=== PATIENT | female | born 1960 | race Caucasian/White ===

== ENCOUNTER → 2019-07-10 13:12 | Outpatient (BNVA) | payer OTHER, SELFPAY | PROVIDERS: PCP Internal Medicine; Referring Provider Internal Medicine; Visit Provider Nurse Practitioner Adult Health | DX: G43.709 Chronic migraine without aura, not intractable, without status migrainosus (principal) | CPT/HCPCS: 99204 ==

== ENCOUNTER 2019-08-30 12:51 | Outpatient (REF) | payer OTHER, SELFPAY ==
[2019-08-30 14:07] LABS: ALT 26 U/L (14-59); AST 25 U/L (15-37); Albumin 3.9 g/dL (3.4-5.0); Alkaline Phosphatase 46 U/L (46-116); Anion Gap 9.5 mmol/L (3-11); BUN 9 mg/dL (7-18); Bilirubin, Total 0.5 mg/dL (0.2-1.0); CO2 28.5 mmol/L (21.0-32.0); CREATININE 1.02 mg/dL (0.55-1.02); Calcium 9.6 mg/dL (8.5-10.1); Chloride 103 mmol/L (98-107); Estimated GFR 55.47 (mL/min/1.73m2); Glucose 130 mg/dL (74-106); Potassium 4.3 mmol/L (3.5-5.1); Sodium 141 mmol/L (136-145); TSH (W/Ref FT4) 1.72 uIU/mL (0.36-3.74); Total Protein 7.2 g/dL (6.4-8.2)
[2019-08-30 22:15] LABS: Vitamin D 25 Total 50.4 ng/ml (30-100)
== END 2019-08-30 13:11 ==
LOC: NCHCN 12:51
PROVIDERS: PCP Internal Medicine; Visit Provider Nurse Practitioner
DX: F41.8 Other specified anxiety disorders (principal); R63.4 Abnormal weight loss; Z79.899 Other long term (current) drug therapy; Z13.21 Encounter for screening for nutritional disorder
CPT/HCPCS: 80053; 82306; 84443

== ENCOUNTER → 2019-09-17 12:56 | Outpatient (BNVA) | payer OTHER, SELFPAY | PROVIDERS: PCP Internal Medicine; Referring Provider Internal Medicine; Visit Provider Nurse Practitioner Adult Health | DX: G43.709 Chronic migraine without aura, not intractable, without status migrainosus (principal); F50.9 Eating disorder, unspecified | CPT/HCPCS: 99213 ==

== ENCOUNTER → 2019-10-15 13:19 | Outpatient (BNVA) | payer OTHER, SELFPAY | PROVIDERS: PCP Internal Medicine; Referring Provider Internal Medicine; Visit Provider Nurse Practitioner Adult Health | DX: F50.9 Eating disorder, unspecified (principal); G43.709 Chronic migraine without aura, not intractable, without status migrainosus | CPT/HCPCS: 99213 ==

== ENCOUNTER → 2019-12-18 09:24 | Outpatient (BNVA) | payer OTHER, SELFPAY | PROVIDERS: PCP Internal Medicine; Referring Provider Internal Medicine; Visit Provider Nurse Practitioner Adult Health | DX: G43.709 Chronic migraine without aura, not intractable, without status migrainosus (principal) | CPT/HCPCS: 99213; 99441 ==

== ENCOUNTER → 2020-03-27 08:54 | Outpatient (BNVA) | payer OTHER, SELFPAY | PROVIDERS: PCP Internal Medicine; Referring Provider Internal Medicine; Visit Provider Nurse Practitioner Adult Health | DX: G43.709 Chronic migraine without aura, not intractable, without status migrainosus (principal) | CPT/HCPCS: 99213 ==

== ENCOUNTER → 2020-07-02 13:05 | Outpatient (BNVA) | payer OTHER, SELFPAY | PROVIDERS: PCP Internal Medicine; Referring Provider Internal Medicine; Visit Provider Nurse Practitioner Adult Health | DX: G43.709 Chronic migraine without aura, not intractable, without status migrainosus (principal) | CPT/HCPCS: 99213; 99441 ==

== ENCOUNTER → 2020-10-06 08:40 | Outpatient (BNVA) | payer OTHER, SELFPAY | PROVIDERS: PCP Internal Medicine; Referring Provider Internal Medicine; Visit Provider Nurse Practitioner Adult Health | DX: G43.709 Chronic migraine without aura, not intractable, without status migrainosus (principal) | CPT/HCPCS: 99212; 99442 ==

== ENCOUNTER 2020-12-18 10:51 | Outpatient (CLI) | payer OTHER, SELFPAY ==
[2020-12-18 11:42] LABS: CREATININE 1.1 mg/dL (0.55-1.02)
[2020-12-18] MEDS: Omnipaque 350 MG/ML 100 ML BTL IJ (12:27)
[2020-12-18] MEDS: Normal Saline - Diluent 50 ML VIAL IV (12:31)
--- NOTE | 2020-12-18 12:32 | DI.CT_ITS ---
Exam(s) CT PELVIC W EXAM: CT PELVIC W CLINICAL HISTORY: PELVIC JOINT PAIN, M25.559, BILAT ISCHIAL TUBEROSITY. TECHNIQUE: Imaging Protocol: Axial computed tomography images with coronal and sagittal reformatted images were created and reviewed CONTRAST MATERIAL: Intravenous: Omnipaque 100cc Oral: None COMPARISON: No exams were available for comparison FINDINGS: PELVIS: This CT scan was limited to the pelvis, as per request. OSSEOUS:No pelvic or hip fractures evident. No significant osseous lesions.Sacroiliac joints appear unremarkable. Ischial tuberosities appear unremarkable. ANTERIOR ABDOMINAL WALL/GI:No evidence of anterior abdominal hernia at and below the level of the umb ilicus. Also no evidence of inguinal hernia. Difficult to locate the appendix on this study. Howev er, no evidence of obvious appendicitis.No evidence of sigmoid diverticulitis. LYMPH NODES: There is no intrapelvic nor inguinal adenopathy. REPRODUCTIVE: Uterus size is age-appropriate. There are multiple dilated veins on both sides of uter us. These drain into prominent gonadal veins. Probably an element of pelvic congestion. No free fl uid in the cul-de-sac. URINARY BLADDER: No calculi nor obvious masses evident VASCULAR: there is no adenopathy around the aortic bifurcation nor along the iliac chains and there i s no inguinal adenopathy. an there is no significant atherosclerotic disease at the level of the aor tic bifurcation and iliac arteries. common femoral arteries are patent as are the visualized proxima l sfa arteries. IMPRESSION: 1. This pelvic CT scan somewhat difficult to assess due to the lack of oral contrast. There are dens ities anterior to the sacrum which are probably unopacified bowel loops. 2. There are multiple dilated veins on both sides the uterus which drain into prominent gonadal veins , consistent with element of pelvic congestion syndrome. 3. Subcutaneous streaking over medial aspect lower buttocks. No prominent cubitus ulcer. No evidenc e of osteomyelitis of the ischial tuberosities. RADIATION DOSE DELIVERED: 269.6mGy.cm Total DLP DATA REPOSITORY: All CT scans at this facility are submitted to the National Radiology Data Registry (NRDR) Dose Index Registry (DIR) with the [employer] (ACR). RADIATION OPTIMIZATION: All CT scans at this facility use at least one of these dose optimization te chniques: automated exposure control; mA and/or kV adjustment per patient size (includes targeted exa ms where dose is matched to clinical indication); or iterative reconstruction.
== END 2020-12-18 11:11 ==
PROVIDERS: PCP Internal Medicine; Visit Provider Physician Assistant Medical
DX: Z01.812 Encounter for preprocedural laboratory examination (principal); M25.559 Pain in unspecified hip; R10.2 Pelvic and perineal pain; N94.89 Other specified conditions associated with female genital organs and menstrual cycle
CPT/HCPCS: 72193; 82565; J3490

== ENCOUNTER → 2021-01-21 07:21 | Outpatient (BNVA) | payer OTHER, SELFPAY | PROVIDERS: PCP Internal Medicine; Referring Provider Internal Medicine; Visit Provider Nurse Practitioner Adult Health | DX: G43.709 Chronic migraine without aura, not intractable, without status migrainosus (principal) | CPT/HCPCS: 99213 ==

== ENCOUNTER → 2021-03-04 12:29 | Outpatient (BNVA) | payer OTHER, SELFPAY | PROVIDERS: PCP Internal Medicine; Referring Provider Internal Medicine; Visit Provider Nurse Practitioner Adult Health | DX: G43.709 Chronic migraine without aura, not intractable, without status migrainosus (principal); F50.9 Eating disorder, unspecified | CPT/HCPCS: 99213; J1885; J2550; 96372 ==

== ENCOUNTER → 2021-03-18 13:10 | Outpatient (BNVA) | payer OTHER, SELFPAY | PROVIDERS: PCP Internal Medicine; Referring Provider Internal Medicine; Visit Provider Nurse Practitioner Adult Health | DX: G43.709 Chronic migraine without aura, not intractable, without status migrainosus (principal) | CPT/HCPCS: 99212; 99213 ==

== ENCOUNTER → 2021-04-16 09:23 | Outpatient (BNVA) | payer OTHER, SELFPAY | PROVIDERS: PCP Nurse Practitioner; Visit Provider Nurse Practitioner Adult Health | DX: G43.709 Chronic migraine without aura, not intractable, without status migrainosus (principal); M54.2 Cervicalgia | CPT/HCPCS: 99213; 99215 ==

== ENCOUNTER → 2021-06-18 08:33 | Outpatient (BNVA) | payer MEDICARE, OTHER, SELFPAY | PROVIDERS: PCP Nurse Practitioner; Referring Provider Nurse Practitioner; Visit Provider Psychiatry & Neurology Neurology | DX: G43.709 Chronic migraine without aura, not intractable, without status migrainosus (principal) | CPT/HCPCS: 99214 ==

== ENCOUNTER 2021-07-28 00:05 | Outpatient (CLI) | payer MEDICARE, SELFPAY ==
--- OUTSIDE RECORDS SUMMARY | 2021-07-28 00:07 | XMS_ITS ---
:1960 Author Care Team Providers Name Role Phone SHARATH MORRIS Primary Care Provider [phone] Allergies Code Code System Name Reaction Severity Status Onset 5814507 RxNorm Latex ? ? Active ? Sulfa ? ? Active ? (Sulfonamid e Antibiotics ) Medications Name Status Start Date Stop Date ? ? acetaminophen 325 mg tablet Completed 09/21/201209/2014 1 Tablet: every six hours as needed for fever Ambien 10 mg tablet Completed 08/02/2005 10/22/2005 1 (one) Tablet: At Bedtime PRN Ativan 0.5 mg tablet Completed 08/23/2013 12/05/2013 1 (one) Tablet: two times daily Ativan 1 mg tablet Completed 05/23/2008 10/08/2009 1 Tablet: QHS / HS B Complex-Vitamin B12 Active 03/15/2018 Not availa ble take 200-400mg daily Bromatapp 12 mg-75 mg tablet,extended release Completed 08/30/2016 2 (two) Tablet: once daily buspirone 15 mg tablet Active ? Not avail able Take 1 tablet twice a day by oral route. cephalexin 500 mg capsule Completed 08/20/20112011 1 Capsule: three times daily ciprofloxacin 500 mg tablet Completed 08/23/201308/22 1 Tablet: twice daily citalopram 10 mg tablet Completed 11/29/2011 11/29/19 12 1 (one) Tablet: daily cyclobenzaprine 5 mg tablet Completed 10/30/201502/2016 1 (one) Tablet: twice a day as needed Cytomel 25 mcg tablet Completed 08/23/2013 09/08/2013 1 Tablet: every morning dicyclomine 20 mg tablet Completed 03/30/2013 013 1 Tablet: Four times daily as needed docusate sodium 100 mg capsule Active ? N ot available Take 1 capsule every day by oral route. Effexor XR 75 mg capsule,extended release Completed 200907/14/2010 1 (one) Capsule ER 24HR: daily Elocon 0.1 % topical cream Unknown 11/14/2008 Not a vailable 1 (one) Application(s): twice daily epinephrine 0.3 mg/0.3 mL injection, auto-injector Active ? Not available Take 0.3 mL as needed by injection route. gentamicin 0.1 % topical ointment Completed 08/19/2011 08/19/2011 1 (one) FTU: Three times a day hydrocodone 5 mg-acetaminophen 325 mg tablet Completed 08/01/2014 1-2 Tablet: at bedtime, as needed hydrocortisone 2.5 % topical cream Completed 09/21/2011 12/05/2013 1 Application(s): three times daily hydroxyzine HCl 25 mg tablet Completed 11/20/201405/2016 1 (one) Tablet: four times daily, as needed hydroxyzine HCl 50 mg tablet Completed 11/20/201405/2016 4 (four)Tablet Tablet: nightly ibuprofen 600 mg tablet Completed 11/02/2007 02/16/20 14 1 (one) Tablet: three times daily, as needed ibuprofen 800 mg tablet Active ? Not avai lable Take 1 tablet 3 times a day by oral route as needed. ketoconazole 2 % topical cream Completed 09/20/2011 0 09/20/2011 1 (one) application(s): two times daily L-Methylfolate 15 mg tablet Active ? Not available Take 1 mg every day by oral route. lamotrigine 100 mg tablet Active ? Not av ailable Take 1 tablet every day by oral route. levothyroxine 25 mcg tablet Completed 12/31/2013 05/02/2014 1 (one) Tablet: daily Lexapro 10 mg tablet Unknown 11/14/2008 Not availab le 1 (one) Tablet: Daily loratadine 10 mg tablet Active ? Not avai lable Take 1 tablet every day by oral route. Lotrimin AF (clotrimazole) 1 % topical cream Completed 09/17/2011 1 (one) Application(s): Twice daily Lotrisone 1 %-0.05 % topical cream Completed 02/20/2009 10/08/2009 1 (one) FTU: two times daily Macrobid 100 mg capsule Completed 03/01/2008 03/04/20 08 1 (one) Capsule: Twice daily magnesium 250 mg tablet Active 03/15/2018 Not avai lable Take 1 tablet every day by oral route with meals. melatonin 3 mg tablet Completed 08/23/2013 09/22/2013 2 (two) Tablet: nightly metronidazole 500 mg tablet Completed 12/29/201212/20 1 Tablet: three times daily mupirocin 2 % topical ointment Completed 07/17/2012 1 09/16/2011 1 Ointment: two times daily NAC 600 mg capsule Active ? Not available Take 2 capsules every day by oral route in the morning. naproxen 250 mg tablet Active 03/15/2018 Not avail able Take 2 tablets twice a day by oral route as needed. Nexium 40 mg capsule,delayed release Completed 03/01/2008 03/01/2008 1 (one) Capsule DR: QD NuvaRing 0.12 mg-0.015 mg/24 hr vaginal Completed 07/10/20 10 07/10/2010 1 Ring: [id number] omeprazole 20 mg capsule,delayed release Completed 014 05/16/2014 1 (one) Capsule DR Capsule DR: daily ondansetron 4 mg disintegrating tablet Completed 5 10/30/2015 1 (one) Tablet Disperse: twice a day as needed for nausea prednisone 10 mg tablet Completed 03/13/2012 03/18/20 12 5 Tablet: See comments prednisone 20 mg tablet Completed 08/01/2014 08/13/20 14 1 (one) Tablet: as directed prochlorperazine 5 mg tablet Active ? Not available TAKE 1-2 TABLET (5 MG) BY ORAL ROUTE EVERY 8 HOURS NEEDED fo r headache Pyridium 200 mg tablet Completed 03/01/2008 8 1 (one) Tablet: Three times a day Remeron 30 mg tablet Active ? Not availab le Take 1 tablet every day by oral route. Restoril 30 mg capsule Completed 08/23/2013 4 1 Capsule: at bedtime rizatriptan 10 mg disintegrating tablet Active ? Not available Take 1 tablet as needed by oral route. Seroquel 100 mg tablet Completed 06/21/2007 7 1 Tablet: QHS / HS Seroquel 25 mg tablet Completed 06/04/2013 12/31/2013 1 Tablet: twice daily sertraline 100 mg tablet Completed 06/04/2013 014 1 Tablet: daily sumatriptan 100 mg tablet Completed ? 2017 Take 1 tablet PO x 1; may repeat x 1 after 2 hrs if needed Max 200mg/24hr sumatriptan 50 mg tablet Completed ? 018 TAKE 1 TABLET (50 MG) BY ORAL ROUTE AFT ER ONSET OF MIGRAINE; MAY REPEAT AFTER 2 HOURS IF HEADACHE RETURNS, NOT TO EXCEED 200MG IN 24HRS Tamiflu 75 mg capsule Completed 09/21/2012 09/26/2012 1 capsule(s): 2 times per day for 5 days for influenza triamcinolone acetonide 0.025 % topical cream Completed 09/20/2011 1 (one) Application(s): Twice daily triamcinolone acetonide 0.5 % topical cream Completed 07/2208/06/2014 1 (one) Applicator: three times daily Trileptal 150 mg tablet Completed 05/19/2015 06/30/20 15 2 (two) Tablet: twice daily as directed Vagifem 10 mcg vaginal tablet Completed 11/20/2014 1 (one) Tablet Tablet: take nightly for 2 weeks, then 2-3 times weekly Vicodin 5 mg-300 mg tablet Completed 08/23/201312/05 1 Tablet: Every 4 hours as needed Viibryd 40 mg tablet Active ? Not availab le Take 1 tablet every day by oral route. Vistaril Active 03/15/2018 Not available take 10mg BID PRN for mild to moderate LUX Vitamin B-1 100 mg tablet Completed 06/28/20162016 1 (one) Tablet: once daily Zyprexa 2.5 mg tablet Completed 11/29/2011 11/29/2011 1 Tablet: daily Notes: Pt not taking vistril, Vi tamin B-12 comlex or ibuprofen at this time. Problems Name Status Onset Date Source ? Chronic Cluster Headache Active 02/05/2018 ? Uterine Leiomyoma Active ? History Severe Major Depression, Single Active ? History Episode, without Psychotic Features Generalized Anxiety Disorder Active ? His tory Non-organic Sleep Disorder Active ? Histo ry Tension-type Headache Active ? History Hearing Loss of Right Ear Active ? Histor y Raynaud's Disease Active ? History Chronic Constipation Active ? History Irritable Bowel Syndrome Active ? History Vaginospasm Active ? History Atrophic Vaginitis Active ? History Effusion of Joint Active ? History Cervical Radiculopathy Active ? History Muscle Pain Active ? History Counseling Active ? History Adult Health Examination Active ? History SNOMED CT Concept Active ? History Allergy to Latex Active ? History Pelvic and Perineal Pain Active ? History Procedures Date Name Performed by ? 02/19/2013 Colonoscopy Information not avai lable 03/19/2009 Hernia Repair Inguinal Information not a vailable 02/03/2018 XR, Cervical Spine, 4 or 5 View [facility] (Internal) [address] [place] [address] (Work Place) Results Lab Results None recorded. Past Encounters None recorded. Social History Tobacco Smoking Status Never Smoker Vaccine List Vaccine Type Td (adult), adsorbed 08/22/1993 Tdap 08/19/2010 Plan of Care Reminders Provider Appointments None ? ? recorded. Lab None ? ? recorded. Referral None ? ? recorded. Procedures None ? ? recorded. Surgeries None ? ? recorded. Imaging None ? ? recorded. Vitals 02/03/2018 11:20AM Follow Up 40 Height Weight BMI Blood Pressure 167.64 cm 56.93 kg 20.3 kg/m2 100/62 mm[Hg] 08/30/2016 Blood Pressure 110/72 mm[Hg] 06/28/2016 Height Weight Blood Pressure 168.91 cm 59.38 kg 108/70 mm[Hg] 10/30/2015 Weight Blood Pressure 56.38 kg 110/62 mm[Hg] 06/30/2015 Blood Pressure 108/68 mm[Hg] 05/28/2015 Blood Pressure 120/72 mm[Hg] 05/07/2015 Height Weight Blood Pressure 165.1 cm 53.57 kg 100/68 mm[Hg] 04/23/2015 Blood Pressure 112/80 mm[Hg] 01/08/2015 Height Weight Blood Pressure 165.1 cm 54.48 kg 118/64 mm[Hg] 11/20/2014 Height Weight Blood Pressure 165.1 cm 54.02 kg 130/82 mm[Hg] 08/01/2014 Weight Blood Pressure 54.16 kg (1) 113/74 mm[Hg] (2) 127/73 mm[Hg] (3) 123/77 mm[Hg] (4) 132/68 mm[Hg] (5) 124/78 mm[Hg] (6) 112/73 mm[Hg] (7) 109/83 mm[Hg] (8) 110/69 mm[Hg] (9) 115/76 mm[Hg] (10) 115/63 mm[Hg] (11) 126/74 mm[Hg] (12) 123/78 mm[Hg] 04/03/2014 Weight Blood Pressure 54.02 kg 126/80 mm[Hg] 02/15/2014 Height Weight Blood Pressure 167.64 cm 53.3 kg 118/72 mm[Hg] 01/15/2014 Weight Blood Pressure 53.12 kg 114/68 mm[Hg] 12/31/2013 Weight Blood Pressure 53.89 kg 104/62 mm[Hg] 12/05/2013 Weight Blood Pressure 53.57 kg 118/72 mm[Hg] 06/04/2013 Height Weight Blood Pressure 167.64 cm 55.43 kg 118/62 mm[Hg] 03/30/2013 Height Weight Blood Pressure 167.64 cm 55.34 kg 96/60 mm[Hg] 03/06/2013 Weight Blood Pressure 54.7 kg 106/60 mm[Hg] 02/16/2013 Weight Blood Pressure 54.93 kg 110/66 mm[Hg] 01/10/2013 Weight Blood Pressure 54.2 kg 114/70 mm[Hg] 12/29/2012 Weight Blood Pressure 54.39 kg 108/70 mm[Hg] 11/15/2012 Height Weight Blood Pressure 167.64 cm 55.61 kg 110/82 mm[Hg] 09/21/2012 Blood Pressure 116/70 mm[Hg] 07/17/2012 Weight Blood Pressure 57.65 kg 108/66 mm[Hg] 11/29/2011 Height Weight Blood Pressure 167.64 cm 57.06 kg 98/60 mm[Hg] 08/19/2011 Height Weight Blood Pressure 168.91 cm 51.48 kg 110/72 mm[Hg] 08/12/2011 Height Weight Blood Pressure 168.91 cm 49.9 kg 122/62 mm[Hg] 12/07/2010 Blood Pressure (1) 118/102 mm[Hg] (2) 120/96 mm[Hg] (3) 134/76 mm[Hg] (4) 130/74 mm[Hg] 11/09/2010 Height Weight Blood Pressure 167.64 cm 58.15 kg 112/70 mm[Hg] 08/18/2010 Blood Pressure 110/70 mm[Hg] 07/24/2010 Weight Blood Pressure 57.2 kg 108/70 mm[Hg] 07/10/2010 Weight Blood Pressure 57.2 kg 118/68 mm[Hg] 10/08/2009 Height Weight Blood Pressure 167.64 cm 58.51 kg 110/62 mm[Hg] 02/20/2009 Blood Pressure 100/66 mm[Hg] 02/06/2009 Height Weight 167.64 cm 57.15 kg 11/18/2008 Weight Blood Pressure 55.79 kg 102/64 mm[Hg] 11/14/2008 Blood Pressure 114/64 mm[Hg] 03/01/2008 Weight Blood Pressure 53.52 kg 118/74 mm[Hg] 01/30/2008 Weight Blood Pressure 55.79 kg 124/70 mm[Hg] 11/02/2007 Blood Pressure 110/78 mm[Hg] 06/21/2007 Weight Blood Pressure 61.69 kg 108/64 mm[Hg] 06/13/2006 Weight Blood Pressure 58.06 kg 102/78 mm[Hg] 10/22/2005 Weight Blood Pressure 51.26 kg 102/72 mm[Hg] 08/02/2005 Weight Blood Pressure 56.25 kg 114/72 mm[Hg] 07/16/2005 Weight Blood Pressure 56.7 kg (1) 116/86 mm[Hg] (2) 98/70 mm[Hg] (3) 88/68 mm[Hg] 04/06/2005 Weight Blood Pressure 56.25 kg 110/66 mm[Hg] 03/09/2005 Weight Blood Pressure 56.25 kg 120/80 mm[Hg] 01/08/2005 Weight Blood Pressure 56.7 kg 102/74 mm[Hg] 11/11/2004 Weight Blood Pressure 58.06 kg 112/70 mm[Hg] 08/27/2004 Blood Pressure 116/70 mm[Hg]
--- NOTE | 2021-07-28 13:00 | DI.US_ITS ---
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 TECHNIQUE: Transabdominal pelvic ultrasound was performed using standard protocol. COMPARISON: CT CT PELVIC W from 12/18/[address] PELVIC W from 12/18/2020 FINDINGS: KIDNEYS: Kidneys are symmetric in size. No evidence of renal calculi. No evidence of hydronephrosis. UTERUS: Position: Anteverted. Size: 8 long by 3.1 AP by 4.6 transverse cm Endometrium: 0.3 cm. Normal for patient's menstrual status. Myometrium: Unremarkable. There is an echogenic focus in the fundus of the uterus consistent with the calcification on the CT scan from 12/18/2020. This may reflect calcified uterine fibroid. Cervix: Unremarkable. OVARIES: Right: 2.2 x 1.5 x 1.7 cm Cyst or mass: None. Left: 2.6 x 1.6 x 1.8 cm Cyst or mass: None. CUL-DE-SAC: Free fluid: None. Other: None. IMPRESSION: Unremarkable transabdominal pelvic ultrasound. DATA REPOSITORY:
== END 2021-07-28 00:25 ==
PROVIDERS: PCP Nurse Practitioner; Visit Provider Obstetrics & Gynecology Gynecology
DX: R10.2 Pelvic and perineal pain (principal); N94.819 Vulvodynia, unspecified
CPT/HCPCS: 76856

== ENCOUNTER 2021-12-09 17:41 | Outpatient (REF) | payer MEDICARE, SELFPAY ==
--- OUTSIDE RECORDS SUMMARY | 2021-12-09 17:44 | XMS_ITS ---
:1960 Author Care Team Providers Name Role Phone SHARATH MORRIS Primary Care Provider [phone] Allergies Code Code System Name Reaction Severity Status Onset 8992323 RxNorm Latex ? ? Active ? Sulfa [...] route. levothyroxine 25 mcg tablet Completed 12/31/2013 0502/2014 1 (one) Tablet: daily Lexapro 10 mg [...] vaginal Completed 07/10/20 10 07/10/2010 1 Ring: [id number] omeprazole 20 mg capsule,delayed release Completed 014 [...] XR, Cervical Spine, 4 or 5 View [facility] (Internal) [address] [place] [address] (Work Place) Results Lab Results None [...]
[2021-12-09 20:41] LABS: HCT 39.5 % (36.0-46.0); HGB 13.3 g/dL (11.2-15.7); MCH 33.3 pg (27.0-33.0); MCHC 33.7 % (32.0-36.0); MPV 9.9 fL (8.0-11.0); Platelet Count 292 10^3/uL (130-400); RBC 3.99 10^6/uL (3.93-5.22); RDW 11.9 % (11.7-14.6); RDW-SD 43.8 fL
[2021-12-09 21:18] LABS: ALT 24 U/L (14-59); AST 19 U/L (15-37); Albumin 4.2 g/dL (3.4-5.0); Alkaline Phosphatase 57 U/L (46-116); Anion Gap 10.7 mmol/L (3-11); BUN 11 mg/dL (7-18); Bilirubin, Total 0.4 mg/dL (0.2-1.0); CO2 27.3 mmol/L (21.0-32.0); CREATININE 0.8 mg/dL (0.55-1.02); Calcium 9.4 mg/dL (8.5-10.1); Chloride 104 mmol/L (98-107); Glucose 82 mg/dL (74-106); Potassium 4.5 mmol/L (3.5-5.1); Sodium 142 mmol/L (136-145); Total Protein 7.4 g/dL (6.4-8.2); Vitamin B12 428 pg/mL (193-986)
== END 2021-12-09 17:42 | disposition home or self-care (01) ==
LOC: NCHCN 17:41
PROVIDERS: Visit Provider Nurse Practitioner Family
DX: R20.0 Anesthesia of skin (principal)
CPT/HCPCS: 80053; 85027; 82607

== ENCOUNTER 2021-12-17 02:00 | Outpatient (CLI) | payer MEDICARE, SELFPAY ==
--- NOTE | 2021-12-17 15:00 | DI.CT_ITS ---
Exam(s) CT HEAD WO EXAM: CT HEAD WO CLINICAL HISTORY: NUMBNESS, R20.0; MIGRAINE, G43.909. TECHNIQUE: Imaging Protocol: Axial computed tomography images with coronal and sagittal reformatted images were created and reviewed COMPARISON: No exams were available for comparison FINDINGS: The ventricular system is normal in appearance. No evidence of acute intracranial hemorrhage, mass effect, or midline shift. The orbital structures are unremarkable. The temporal bone structures appear intact. Calvarium: Normal. Visualized Paranasal sinuses/Mastoids: Clear. IMPRESSION: Normal cranial CT. RADIATION DOSE DELIVERED: 652.25mGy.cm Total DLP 652.25mGy.cm Total DLP !Error CTDIvol DATA REPOSITORY: All CT scans at this facility are submitted to the National Radiology Data Registry (NRDR) Dose Index Registry (DIR) with the [employer] (ACR). RADIATION OPTIMIZATION: All CT scans at this facility use at least one of these dose optimization te chniques: automated exposure control; mA and/or kV adjustment per patient size (includes targeted exa ms where dose is matched to clinical indication); or iterative reconstruction.
== END 2021-12-17 02:20 ==
PROVIDERS: PCP Nurse Practitioner Family; Visit Provider Nurse Practitioner Family
DX: G43.909 Migraine, unspecified, not intractable, without status migrainosus (principal); R20.0 Anesthesia of skin
CPT/HCPCS: 70450

== ENCOUNTER 2023-04-14 13:02 | Outpatient (REF) | payer MEDICARE, SELFPAY ==
[2023-04-14 15:50] LABS: HCT 40.5 % (36.0-46.0); HGB 13.5 g/dL (11.2-15.7); MCHC 33.3 % (32.0-36.0); MCV 96 fL (80-95); MPV 11.6 fL (8.0-11.0); Platelet Count 218 10^3/uL (130-400); RBC 4.22 10^6/uL (3.93-5.22); RDW 12.8 % (11.7-14.6); RDW-SD 45.5 fL; WBC 4.25 10^3/uL (4.4-10.8)
[2023-04-14 16:39] LABS: ALT 33 U/L (14-59); AST 20 U/L (15-37); Albumin 3.9 g/dL (3.4-5.0); Alkaline Phosphatase 58 U/L (46-116); BUN 23 mg/dL (7-18); Bilirubin, Total 0.4 mg/dL (0.2-1.0); CREATININE 0.8 mg/dL (0.55-1.02); Calcium 9.4 mg/dL (8.5-10.1); Calculated LDL 197 mg/dL (<100); Chloride 105 mmol/L (98-107); Cholesterol 305 mg/dL (<200); Estimated GFR 82.74 (mL/min/1.73m2); Glucose 96 mg/dL (74-106); HDL Cholesterol 93 mg/dL (40-60); Potassium 4.2 mmol/L (3.5-5.1); Sodium 141 mmol/L (136-145); TSH (W/Ref FT4) 2.01 uIU/mL (0.36-3.74); Total Protein 7.3 g/dL (6.4-8.2); Triglyceride 79 mg/dL (<150)
== END 2023-04-14 13:03 | disposition home or self-care (01) ==
LOC: NCHCN 13:02
PROVIDERS: PCP Nurse Practitioner Family; Visit Provider Nurse Practitioner Family
DX: F33.9 Major depressive disorder, recurrent, unspecified (principal); Z00.00 Encounter for general adult medical examination without abnormal findings
CPT/HCPCS: 80053; 80061; 82306; 85027; 84443

== ENCOUNTER 2023-06-13 18:25 | Outpatient (REF) | payer MEDICARE, SELFPAY ==
[2023-06-13 17:43] LABS: Vitamin D 25 Total 94.6 ng/mL (30-100)
== END 2023-06-13 18:26 | disposition home or self-care (01) ==
LOC: NCHCN 18:25
PROVIDERS: PCP Nurse Practitioner Family; Visit Provider Nurse Practitioner Family
DX: F33.9 Major depressive disorder, recurrent, unspecified (principal)
CPT/HCPCS: 82306

== ENCOUNTER 2023-08-01 13:44 | Outpatient (REF) | payer MEDICARE, SELFPAY ==
[2023-08-01 15:07] LABS: Vitamin D 25 Total 81.8 ng/mL (30-100)
== END 2023-08-01 13:45 | disposition home or self-care (01) ==
LOC: NCHCN 13:44
PROVIDERS: PCP Nurse Practitioner Family; Visit Provider Nurse Practitioner Family
DX: E55.9 Vitamin D deficiency, unspecified (principal)
CPT/HCPCS: 82306

== ENCOUNTER 2024-04-12 11:08 | Outpatient (REF) | payer MEDICARE, SELFPAY ==
--- OUTSIDE RECORDS SUMMARY | 2024-04-12 11:15 | XMS_ITS | Encounter Summary ---
Author Organization [facility] Address [address] [place] [address] Care Team Providers Care Offal Icer Poultry Name Role Phone Unavailable Primary Care Provider Unavailabl e Encounter Details Date Type Department Care Team (Late st Contact Info) Description 08/31/2000 10:14 EST Hospital Encounter [facility] [address] [place] [address] Narcisa Álvarez PA [address] [place] [id number] Social History Tobacco Use Types Packs/Day Years Used Date Smoking Tobacco: Never Assessed Interpersonal Safety Answer Date Record ed Physically Hurt Never 03/23/2020 Verbally Threaten Not on file 03/23/2020 Sex and Gender Information Value Date Recorded Sex Assigned at Not on file Gender Identity Not on file Sexual Orientation Not on file documented as of this encounter Plan of Treatment Not on file documented as of this encounter Visit Diagnoses Not on filedocumented in this encounter
--- OUTSIDE RECORDS SUMMARY | 2024-04-12 11:15 | XMS_ITS | Encounter Summary ---
Author Organization [facility] Address [facility] [place] [address] Care Team Providers Care Tape Rules Printing Machine Operator Name Role Phone Luis Madhavi JARVIS Primary Care Provider [phone] Encounter Details Date Type Department Care Team (Latest Contact Info) Description 08/29/2023 3:30 PM EST TH Visit (TeleHealth) Psychiatry [place] [id number] Veronica Velazquez MD [facility] [place] [address] OFELIA (generalized anxiety disorder) Social History Tobacco Use Types Packs/Day Years Used Date Smoking Tobacco: Never Smokeless Tobacco: Never Alcohol Use Standard Drinks/Week Comments Yes 1 (1 standard drink = 0.6 oz pur e alcohol) interminttent Sex and Gender Information Value Date Recorded Sex Assigned at Not on file Gender Identity Not on file Sexual Orientation Not on file documented as of this encounter Progress Notes * Veronica Velazquez MD - 08/29/2023 3:30 PM EST Images from the original note were not included. ESTABLISHED ADULT PSYCHIATRY OUTPATIENT VISIT NOTE Location: Telehealth. Aziza Grimm RodneyLayton gave permission for and was seen for today's appointment with a Telehealth visit. During this visit they were located in [place]. Aziza Grimm Dashawn is aware that for any urgent matter they can call [phone]. Attendee(s): patient, Tunde This patient was seen with bookkeepers supervisor Dr. Condon. See their note for confirmatory and/or revisionary documentation. Chief Complaint: I'm feeling more anxious History of Present Illness: Aziza Tamez is a 62 y.o. female with a psychiatric history of major depressive disorder, generalized anxiety disorder, post-traumatic stress disorder, and anorexia nervosa presents today with regarding improved depressive symptoms and continued anxiety following TMS. The patient completed 36 TMS treatments, with the last treatment being on 06/06/2023 which was helpful for her depression but not for her anxiety. She was last seen in mood disorders clinic by Dr. Giuseppe Dejesus on 02/28/23. She was re-referred for follow-up by Sirena Obrien, psychiatric TECHNICAL INSTRUCTOR COURSE DEVELOPER. She states her depression is better, but her anxiety is over the top worsening around her 5th TMStreatment. Although she has long-term anxiety, she states that it has recently worsened and that it's the worst it's ever been. She states she's unable to calm herself down, and will pace around the floor. She denies any panic attacks, but her mind races, has a hard time focusing and endorses restlessness with difficulties sitting in one place. She states without her medications, she wouldn't be able to sleep at all but with them feels she is able top do so. She endorses difficulties falling asleep due to racing thoughts and then wakes up really early in the morning with anxiety. She has never had a sleep study. She begins feeling anxious first thing in the morning and states it's a physical sensation of anxiety that's most bothersome. She denies any weight changes. At this time, she is not wanting to retrial TMS or pursue ECT and would like medication recommendations. She also wonders if the anxiety is a side effect of TMS and wanted discussion regarding this (see assessment and plan for further detail). Substance Use: social drink couple times per week. No smoking, MJ or other drug use Safety: guns in a locked cabinet. Questionnaires: PHQ9 Questionnaires Data (Clinic and Pt Entered): last 4 values 05/24/2023 05/31/2023 06/06/2023 08/08/2023 PHQ-9: Last 4 Responses PHQ - 9 Score 6 (Mild Depression) 4 (Minimal Depression) 4 (Minimal Depression) 7 (Mild Depression) 7 (Mild Depression) PHQ - 9 Score (Pt Questionnaire) 6 (Mild Depression) 4 (Minimal Depression) 4 (Minimal Depression) 7 (Mild Depression) Little interest or pleasure Several Days Several Days Several Days Several Days Several Days Little interest or pleasure (Pt Questionnaire) Several Days Several Days Several Days Several Days Down, depressed, hopeless Several Days Several Days Several Days Several Days Several Days Down, depressed, hopeless (Pt Questionnaire) Several Days Several Days Several Days Several Days Trouble sleeping Several days Not at all Several days Not at all Not at all Trouble sleeping (Pt Questionnaire) Several days Not at all Several days Not at all Tired or no energy Several Days Several Days Not at all Several Days Several Days Tired or no energy (Pt Questionnaire) Several Days Several Days Not at all Several Days Poor appetite or overeating Not at all Not at all Not at all Not at all Not at all Poor appetite or overeating (Pt Questionnaire) Not at all Not at all Not at all Not at all Feeling like a failure Several Days Not at all Not at all Not at all Not at all Feeling like a failure (Pt Questionnaire) Several Days Not at all Not at all Not at all Trouble concentrating Several Days Several Days Several Days Nearly every day Nearly every day Trouble concentrating (Pt Questionnaire) Several Days Several Days Several Days Nearly every day Moving or speaking slowly Not at all Not at all Not at all Not at all Not at all Moving or speaking slowly (Pt Questionnaire) Not at all Not at all Not at all Not at all Would be better off Not at all Not at all Not at all Several Days Several Days Would be better off (Pt Questionnaire) Not at all Not at all Not at all Several Days How difficult are the problems Somewhat difficult Somewhat difficult Somewhat difficult How difficult are the problems (Pt Questionnaire) Somewhat difficult Somewhat difficult Somewhat difficult GAD7 Questionnaires Data: last 4 values 02/25/2023 4:32 PM 08/08/2023 12:49 PM 08/08/2023 2:42 PM OFELIA-7: All Responses Nervous, anxious (Pt Questionnaire) Nearly every day Nearly every day Nervous, anxious Nearly every day Nearly every day Unable to stop worrying (Pt Questionnaire) Nearly every day Nearly every day Unable to stop worrying Nearly every day Nearly every day Worrying about different things (Pt Questionnaire) Nearly every day Nearly every day Worrying about different things Nearly every day Nearly every day Trouble relaxing (Pt Questionnaire) Nearly every day Nearly every day Trouble relaxing Nearly every day Nearly every day Restless (Pt Questionnaire) Nearly every day Nearly every day Restless Nearly every day Nearly every day Easily annoyed, irritable (Pt Questionnaire) More than half the days Nearly every day Easily annoyed, irritable Nearly every day Nearly every day Afraid something awful will happen (Pt Questionnaire) More than half the days Not at all Afraid something awful will happen Not at all Not at all OFELIA-7 Score (Pt Questionnaire) 19 (Severe Anxiety) OFELIA-7 Score (Pt Questionnaire) 18 (Severe Anxiety) OFELIA-7 Score 18 18 Current Medications: Current Outpatient Medications Medication Sig Dispense Refill LORazepam (Ativan) 1 mg tablet Take 1 mg by mouth daily as needed for Anxiety. hydrOXYzine (Atarax) 10 mg tablet 1 tablet at onset of mild to moderate headache. Can repeat in 8-10 hours 45 tablet 1 naproxen (NAPROSYN) 500 mg Tablet Take 1 tablet by mouth every 12 hours as needed. For migraine. Donot use more than 2 days per week. 60 tablet 1 zolpidem (Ambien) 5 mg Tablet 5-10 mg nightly as needed. OLANZapine (ZyPREXA) 2.5 mg Tablet Take 1 tablet by mouth nightly. 14 tablet 1 vilazodone (Viibryd) 20 mg Tablet Take 2 tablets by mouth daily. 28 tablet 0 cholecalciferol, Vitamin D3, 125 mcg (5,000 unit) Tablet Take 5,000 Units by mouth daily. b complex vitamins Capsule Take 1 capsule by mouth daily. mirtazapine (REMERON) 30 mg tablet Take 1 tablet by mouth nightly. Indications: Major Depressive Disorder 30 tablet 0 No current facility-administered medications for this visit. CURRENT MEDICATIONS: Viibryd 40 mg every morning (been on for 8 years) Hydroxyzine 10 mg prn for migraines Mirtazapine 30 mg nightly (been on since 2013; has not tried higher dosage) Zolpidem 5-10 mg qhs prn for sleep (currently using 5mg qhs PRN - helpful for sleep) Lorazepam 1 mg daily as needed for anxiety - ideally would rather not take. Currently taking 4/7 days per week Olanzapine 7.5mg nightly (increased from 2.5 mg nightly since last visit) - has helped a little with sleep Naproxen 500 mg tablet as needed for pain Riboflavin D3 Also using light therapy Allergies: Allergies Allergen Reactions Latex Hives Sulfa (Sulfonamide Antibiotics) Hives Trazodone Other (See Comments) headache Lactose Intolerance [Lactase] Diarrhea Past Psychiatric history and treatment: Prior diagnoses: major depressive disorder, generalized anxiety disorder, post- traumatic stress disorder, and anorexia nervosa History of bro: Denies Prior psychiatric hospitalizations: 2002 - [facility] [place] for 3 months due to depression and suicide attempt by OD. Had ECT. 2012 - [facility] [place] for a week due to suicide attempt by OD. 2021 - [facility] [place] for 1 month following suicide attempt Prior outpatient treatment: Psychiatric TECHNICAL INSTRUCTOR COURSE DEVELOPER (Sirena Obrien), TMS, ECT. Has been doing therapy over the past few months; Reported therapy previously (prior to current therapy, last time in 04/2022) Prior suicide attempts or self-harm: 2021 - cutting wrists and overdosing. Long ICU stay. 2012 - OD 2002 - OD Prior ECT/TMS: Completed 37 TMS treatments, with the last treatment being on 06/03/2023. Had ECT 2001 and 2013 at [facility] [place] - had benefit, but difficulty with memory loss both times, but helped with depression Prior medications trials: SSRI: Sertraline (Zoloft) - took for years with no effect Escitalopram (Lexapro) - can't remember effect Paroxetine (Paxil) - not helpful SNRI: Venlafaxine (Effexor) - can't remember effect NDRI: Bupropion (Wellbutrin) - not effective TCA: Nortriptyline - not effective Amitriptyline - not effective Per prior documentation, she states during ECT sessions, had horrible reaction to ketamine (profound confusion and nausea) Review of Systems: -denies weight changes; endorses insomnia / control: N/A PAST MEDICAL HISTORY IBS Migraines Pelvic congestion syndrome Memory impairment Alopecia Vitals (24hr Range): No data found. Musculoskeletal System: No abnormalities visualized - done via video exam Mental Status Exam: Appearance: age appropriate, casually dressed, and well groomed - exam done via video Behavior: cooperative with the interview and good eye contact Speech: normal pitch, normal volume, normal rate, and normal rhythm Language: fluent in frisian and without paraphasic errors Mood: very anxious Affect: anxious and mood-congruent Thought Process: linear and logical Associations: intact Thought Content: denied homicidal ideation and denied suicidal ideation Perception: denied auditory hallucinations denied visual hallucinations not observed responding to internal stimuli Orientation: grossly intact by interview Attention/Concentration: able to attend interview Cognition: grossly intact by interview Memory: recent and remote memory grossly intact Fund of Knowledge: appropriate for age and level of functioning Insight: fair Judgment: fair Labs: Psychiatric labs: Lab Results Component Value Date WBC 7.2 01/18/2022 HGB 11.8 01/18/2022 HCT 34.7 (L) 01/18/2022 MCV 96.7 (H) 01/18/2022 PLATELET 626 (H) 01/18/2022 Lab Results Component Value Date NA 139 01/18/2022 K 3.9 01/18/2022 CL 105 01/18/2022 CO2 23 01/18/2022 BUN 17 01/18/2022 CREATININE 0.54 (L) 01/18/2022 GLUCOSE 92 01/18/2022 GLUCFASTING 119 (H) 08/15/2013 CALCIUM 9.5 01/18/2022 ESTGFR 101 01/18/2022 Lab Results Component Value Date ALT 70 (H) 01/07/2022 AST Not Perf 01/07/2022 ALKPHOS 39 01/07/2022 BILITOT 0.2 01/07/2022 BILIDIR 0.1 08/15/2013 ALBUMIN 3.4 01/07/2022 PROT 5.3 (L) 01/07/2022 No results found for: HA1C Lab Results Component Value Date TSH 1.94 01/17/2019 25-OH Vit D Total (ng/mL) Date Value Status 03/15/2018 47 Final Lab Results Component Value Date SERQSXIB64 442 03/15/2018 No results found for: LITHIUM No results found for: PHENYTOIN, PHENOBARB, VALPROATE, CBMZ No results found for: CLOZAPINE No results found for: HCGQUAL, HCGQUANT, POCUAHCG Relevant imaging: Has had MRI brain without contrast last done 01/11/22 with no acute process Formulation and Assessment: Diagnoses: Generalized Anxiety Disorder Aziza Tamez is a 62 y.o. female with a psychiatric history of major depressive disorder, generalized anxiety disorder, post-traumatic stress disorder, and anorexia nervosa presents today with regarding improved depressive symptoms and continued anxiety following TMS. The patient completed 36 TMS treatments, with the last treatment being on 06/06/2023 which was helpful for her depression but not for her anxiety. She states that although she has chronic anxiety, it began worsening around her 5th TMS treatment. Although she has long-term anxiety, she states that it has recently worsened and that it's the worstit's ever been. She states it's a physical sensation of anxiety, with restlessness, pacing, etc andthat it's different from the anxiety she's experienced in the past. Considering her description of her anxiety, it's possible that there's an underlying physiological etiology contributing to her worsening anxiety. Therefore, would consider obtaining lab work for conditions that could contribute toworsening anxiety (Ex: thyroid panel, B12, folate, CBC, CMP, Vitamin D3, iron studies). She has chronic issues with sleep and although her medications help with this, she continues to have difficulties falling asleep and will wake up early with anxiety. However she feels without her medications, she would not be able to sleep. She has never had a sleep study - considering her chronic issues with sleep, would consider referral to sleep clinic. The patient wondered if TMS could have contributed to worsening anxiety. She was informed that generally, it would not be considered a side effect as depression and anxiety are often intertwined. However, with some patients as their depression improves at times, more attention is given to the anxiety they have had at baseline rather than worsening anxiety. At this time, she is not wanting to retrial TMS. She has done ECT in the past and per prior documentation, she states during ECT sessions, had horrible reaction to ketamine (profound confusion and nausea) so this is an unlikely option to pursue in the future. Since the last time she was seen in mood disorders clinic on 02/28/23. Per patient, since then her olanzapine has increased from 2.5mg to 7.5mg qhs. Although other second-generation antipsychotics have a higher risk of akathisia than olanzapine, it is a possible side effect. However, it's unclear when her olanzapine was increased and patient began experiencing increased anxiety around the time of the 5th treatment of TMS. Per prior documentation, she was taking 2.5mg qhs when she was evaluated for TMS and as medication changes are generally discouraged, it's less likely that this was increasedaround the time she began to have more anxiety making akathisia a less likely cause. As the olanzapine is only somewhat helpful per patient and she has an alternative sleep medication that she has not fully maximized (She is currently taking ambien 5mg qhs PRN rather than 10mg qhs), could consider discontinuation of zyprexa in favor of her taking higher dose of ambien (Ex: 10mg qhs) as she doesn't have psychotic symptoms and to consolidate her medication regimen. If increasing ambien isn't sufficient for sleep, could also consider use of seroquel at night and then also using this as a PRN for anxiety as well instead of ativan. Additionally, she has hydroxyzine PRN for migraines and at an increased dose may provide benefit for a PRN for anxiety instead of ativan. Mirtazapinecould also be increased to 45mg qhs to provide further anxiety benefit however this would be unlikely to benefit her sleep. She has been on Viibryd 40 mg every morning for 8 years per patient, which has been somewhat helpful. Per patient, she tried buspirone in the past and stated this was helpful. Would strongly consideraugmentation with buspirone up to 30mg BID. If this is not effective, could also consider trying alternative to Viibryd such as fluoxetine, vorioxetine, duloxetine, desvenlafaxine, etc). Safety Assessment: Regarding suicide risk assessment, patient denies current suicide ideation, planor intent. She is future oriented and denies feeling depressed. She is not currently showing the psychological features associated with increased suicide risk. She has protective factors for suicide including social support (Ex: relationship with her ) and is active in seeking out mental health care (has tool procurement coordinator and therapist). Although she has had prior suicide attempts, weighing the above factors, her current suicide risk is judged to be low. Plan: See medication recommendations above Consider sleep medicine referral Consider obtaining lab work such as thyroid panel, B12, folate, CBC, CMP, Vitamin D3, iron studies for possible underlying medical etiologies for anxiety We would be happy to see Aziza Tamez again if these recommendations prove not to be helpful, or if there are additional questions. Thank you for referring Aziza Alfa Tamez to us for consultation. We defer to their current provider regarding final decisions in care and ongoing management, including prescription of medications. Patient Instruction/Education provided: Patient provided verbal instructions regarding medication side effects, safety plan in case of feeling unsafe. For mental health emergencies, call 988 from anywhere in the [facility]. State specific information for [place] and [place] crisis services are as follows and should be used to access local resources: [facility] Mental Health Crises Services [facility] Crisis Line text or call Visit www.Style on Screen for further information [place] Call your local [facility] crisis line at: [place]: [facility] [phone] [place]: [facility] [phone] [place]: [facility] [phone] [place]: [facility] [phone] [place]: [facility] [phone] Krzysztof hernández [place]: [facility] Counseling and Support [phone] [place]: [facility] [phone] on weekdays 8AM-4:30PM and [phone] on nights and weekends [place]: [facility] [place]: [facility] [phone] [place]: [facility] [phone] [place]: [facility], [place]: [facility] [place]: [facility] or Text [place] to [phone] For further information for [place] residents: [email or web address]/emergency-services/pvx-hgm-rjwx National Suicide Prevention Hotline: Patient understands the plan? Yes Signed By: Veronica Velazquez MD 08/28/2023 * Jeremy Condon III, MD - 08/29/2023 3:30 PM EST I have examined this patient, reviewed the records and discussed the case in detail with Dr. Velazquez. I agree with the findings, diagnoses and plan as described in her note. documented in this encounter Plan of Treatment Not on file documented as of this encounter Visit Diagnoses Diagnosis OFELIA (generalized anxiety disorder) Generalized anxiety disorder documented in this encounter Care Teams Tape Rules Printing Machine Operator Relationship Specialty Start Date End Date Madhavi Smith APRN [address] [place] [address] PCP - General Family Medicine 12/14/21 documented as of this encounter
--- OUTSIDE RECORDS SUMMARY | 2024-04-12 11:15 | XMS_ITS | Encounter Summary ---
Author Organization [facility] Address [address] [place] [id number] Care Team Providers Care Senior Teradata Developer Name Role Phone Liang Deluca MD Primary Care Provider [phone] Encounter Details Date Type Department Care Team (Late st Contact Info) Description 02/19/2013 Results Only [facility] Laboratory Services - [facility] [address] [place], [place] [id number] Unknown, Provider, Social History Tobacco Use Types Packs/Day Years Used Date Smoking Tobacco: Never Assessed Sex and Gender Information Value Date Recorded Sex Assigned at Not on file Gender Identity Not on file Sexual Orientation Not on file documented as of this encounter Plan of Treatment Not on file documented as of this encounter Procedures Procedure Name Priority Date/Time Associated Diagnosis Comments SURGICAL PATHOLOGY Routine 02/19/2013 8:46 EDT documented in this encounter Results * SURGICAL PATHOLOGY (02/19/2013 8:46 EDT) Pathology Report: SURGICAL PATHOLOGY REPORT Reports generated via electronic interface contain original data; however they are lacking the format of the original report. Caution should be taken when reading/interpreti ng unformatted reports. Name: ? ADRIANAROSA YAO ? Accession #: ? [id number] ? : ? 1960 (Age: 52) ??F ? Collect Date: ? 02/19/2013 ? Location: ? [facility] ? Receive Date: ? 02/20/2013 ? Provider: TERI STEELE MD Copy to: [facility] MANAGER ? Final Pathologic Diagnosis: A COLON, CECUM, BIOPSY: - ??No specific pathologic features. B COLON, RANDOM, BIOPSIES: - ??No specific pathologic features. Document reviewed and electronically signed by: CARRI GONZALES MD Report ??Date: 02/21/2013 14:36 By the signature above, the attending physician certifies that he/she has personally conducted a gross and/or microscopic examination of the described specimens and rendered or confirmed the above diagnosis. Specimen(s) Received: A. ??Bx cecum B. ??Bx random colon Clinical History: Diarrhea; abd pain Gross Description: A. ? Received in formalin labelled with proper patient identification (initials L, E) bx cecum are four ochoa-pink irregular soft tissue fragments ranging from 0.4 x 0.2 x 0.1 cm to 0.5 x 0.3 x 0.3 cm. ??The specimens are entirely submitted as A1 and A2. B. ? Received in formalin labelled with proper patient identification (initials L, E) and bx random colon are six ochoa-pink irregular soft tissue fragments ranging from 0.1 x 0.1 x less than 0.1 cm to 0.5 x 0.2 x 0.1 cm. ??The specimens are entirely submitted as B1 and B2. Kayla Magaña 02/20/2013 11:21 AM End of Report [facility] PALACIOS 02/19/2013 8:46 EDT 02/20/2013 8:46 EDT Teri Steele MD PATHOLOGY ORDERABLES EDENIL[facility] PALACIOS [address] [place] [address] documented in this encounter Visit Diagnoses Not on filedocumented in this encounter Care Teams Senior Teradata Developer Relationship Specialty Start Date End Date Liang Deluca MD [address] [place] [address] [address] [place] [id number] PCP - General 02/10/09 03/18/19 documented as of this encounter
--- OUTSIDE RECORDS SUMMARY | 2024-04-12 11:15 | XMS_ITS | Continuity of Care Document ---
Author Organization [facility] Address [address] [place] [address] Care Team Providers Care Tool Crib Lead Name Role Phone Madhavi Smith Primary Care Physician [phone] Encounter NCTY_MA Date(s): 09/19/23 - 09/19/23 [facility] [address] [place] [address] Discharge Disposition: Home or Self Care Attending Physician: Alon Lehman MD Admitting Physician: Alon Lehman MD Referring Physician: Alon Lehman MD Allergies, Adverse Reactions, Alerts Substance Reaction Severity Status LATEX Unknown Active sulfa drugs Unknown Active Assessment and Plan Diagnostic Tests Pending * Homocysteine, Total, P GARCIA 09/19/23 * Insulin [facility] 09/19/23 Immunizations Given and Recorded Vaccine Date Status Refusal Reason tetanus/diphth/pertuss (Tdap) adult/adol 01/06/22 Given tetanus/diphth/pertuss (Tdap) adult/adol 08/19/10 Recorded tetanus-diphth toxoids (Td) adult/adol 08/22/93 Re corded Medications busPIRone 30 mg oral tablet 30 mg = 1 tab, Oral, Daily, # 60 tab, 0 Refill(s) Start Date: 01/06/22 Status: Ordered cetirizine 10 mg =, Oral, Daily, 0 Refill(s) Start Date: 01/06/22 Status: Ordered cholecalciferol 400 intl units oral capsule 10 mcg = 1 cap, Oral, Daily, # 100 cap, 0 Refill(s) Start Date: 01/06/22 Status: Ordered hydrOXYzine hydrochloride See Instructions, PRN headache, 10 mg Oral BID, 0 Refill(s) Start Date: 01/06/22 Status: Ordered LaMICtal 25 mg oral tablet 50 mg = 2 tab, Oral, every evening, 0 Refill(s) Start Date: 01/06/22 Status: Ordered lamoTRIgine 200 mg =, Oral, Daily, monitor for rash, 0 Refill(s) Start Date: 01/06/22 Status: Ordered LORazepam 0.5 mg oral tablet 0.5 mg = 1 tab, Oral, every day at bedtime, 0 Refill(s) Start Date: 01/06/22 Status: Ordered mirtazapine 15 mg oral tablet 15 mg = 1 tab, Oral, every day at bedtime, # 30 tab, 0 Refill(s) Start Date: 01/06/22 Status: Ordered NAC 600 mg oral tablet 1,200 mg = 2 tab, Oral, Daily, in the morning, 0 Refill(s) Start Date: 01/06/22 Status: Ordered naproxen 500 mg =, Oral, BID, PRN pain, mild, 0 Refill(s) Start Date: 01/06/22 Status: Ordered riboflavin 100 mg oral tablet 200 mg = 2 tab, Oral, Daily, # 90 tab, 0 Refill(s) Start Date: 01/06/22 Status: Ordered spironolactone 25 mg oral tablet 25 mg = 1 tab, Oral, TID, # 180 tab, 0 Refill(s) Start Date: 01/06/22 Status: Ordered Viibryd 40 mg oral tablet 40 mg = 1 tab, Oral, Daily, with food, 0 Refill(s) Start Date: 01/06/22 Status: Ordered Vraylar 1.5 mg oral capsule 1.5 mg = 1 cap, Oral, Daily, 0 Refill(s) Start Date: 01/06/22 Status: Ordered zolpidem 5 mg oral tablet 5 mg = 1 tab, Oral, every day at bedtime, PRN as needed for sleep, 0 Refill(s) Start Date: 01/06/22 Status: Ordered Results Laboratory List Name Date Automated Diff 09/19/23 C-Reactive Protein High Sensitivity 09/19 CBC w/ Diff 09/19/23 Comprehensive Metabolic Panel 09/19/23 Ferritin 09/19/23 Folate Level 09/19/23 Free T4 09/19/23 Hemoglobin A1c 09/19/23 Iron Level 09/19/23 Lipid Panel 09/19/23 T3, Free [facility] 09/19/23 T4 09/19/23 Thyroid Stimulating Hormone 09/19/23 Vitamin B12 Level 09/19/23 Vitamin D, 25-OH Total [facility] 09/19/23 Most recent to oldest [Reference Range]: 1 WBC [5.0-10.0 x10^3/mcL] 4.5 x10^3/mcL *LOW* (09/19/23 8:47 AM) RBC [4.1-5.3 x10^6/mcL] 4.3 x10^6/mcL (09/19/23 8:47 AM) Neutro Auto [40.0-75.0 %] 72.1 % (09/19/23 8:47 AM) Lymph Auto [20.0-50.0 %] 20.1 % (09/19/23 8:47 AM) [place] Auto [2.0-15.0 %] 6.3 % (09/19/23 8:47 AM) Basophil Auto [0.0-1.0 %] 0.9 % (09/19/23 8:47 AM) BUN [7-18 mg/dL] 14 mg/dL (09/19/23 8:47 AM) Cholesterol Total [50-200 mg/dL] 294 mg/ dL *HI* (09/19/23 8:47 AM) T4 [4.7-13.3 mcg/dL] 6.5 mcg/dL (09/19/23 8:47 AM) LDL [0-130 mg/dL] 166 mg/dL *HI* (09/19/23 8:47 AM) Glucose Level [74-106 mg/dL] 107 mg/dL *HI* (09/19/23 8:47 AM) Potassium Level [3.5-5.1 mmol/L] 4.7 mmo l/L (09/19/23 8:47 AM) MCV [80.0-96.0 fL] 96.9 fL *HI* (09/19/23 8:47 AM) HDL [40-60 mg/dL] 115 mg/dL *HI* (09/19/23 8:47 AM) T4 Free [0.76-1.46 ng/dL] 0.85 ng/dL (09/19/23 8:47 AM) AST [15-37 unit/L] 18 unit/L (09/19/23 8:47 AM) ALT [14-59 unit/L] 20 unit/L (09/19/23 8:47 AM) MCHC [31.0-35.0 g/dL] 33.2 g/dL (09/19/23 8:47 AM) Sodium Level [136-145 mmol/L] 143 mmol/L (09/19/23 8:47 AM) Folate Level [>=8.6 ng/mL] 12.0 ng/mL 1 (09/19/23 8:47 AM) Hct [37.0-47.0 %] 41.3 % (09/19/23 8:47 AM) Triglycerides [0-150 mg/dL] 64 mg/dL (09/19/23 8:47 AM) Calcium Level [8.5-10.1 mg/dL] 9.4 mg/dL (09/19/23 8:47 AM) Albumin Level [3.4-5.0 g/dL] 3.8 g/dL (09/19/23 8:47 AM) Protein Total [6.4-8.2 g/dL] 7.1 g/dL (09/19/23 8:47 AM) MCH [26.0-32.0 pg] 32.2 pg *HI* (09/19/23 8:47 AM) Neutro Absolute 3.2 x10^3/mcL *NA* (09/19/23 8:47 AM) Bilirubin Total [0.2-1.0 mg/dL] 0.7 mg/d L (09/19/23 8:47 AM) Hgb [12.0-16.0 g/dL] 13.7 g/dL (09/19/23 8:47 AM) B12 Level [193-986 pg/mL] 577 pg/mL (09/19/23 8:47 AM) Alk Phos [46-146 unit/L] 44 unit/L *LOW* (09/19/23 8:47 AM) Ferritin Level [8-252 ng/mL] 47 ng/mL (09/19/23 8:47 AM) Platelets [130-450 x10^3/mcL] 197 x10^3/ mcL (09/19/23 8:47 AM) CO2 [21-32 mmol/L] 27 mmol/L (09/19/23 8:47 AM) TSH [0.358-3.740 mcIntlUnit/mL] 2.986 mc IntlUnit/mL (09/19/23 8:47 AM) Iron [50-170 mcg/dL] 113 mcg/dL (09/19/23 8:47 AM) eGFR Non-AA [>=60] 80 (09/19/23 8:47 AM) eGFR AA [>=60] 80 (09/19/23 8:47 AM) Hemoglobin A1c [4.0-6.0 %] 6.0 % (09/19/23 8:47 AM) Chloride Level [98-107 mmol/L] 108 mmol/ L *HI* (09/19/23 8:47 AM) RDW-CV [11.5-14.5 %] 12.3 % (09/19/23 8:47 AM) Imm Gran Auto [0.0-0.9 %] 0.2 % (09/19/23 8:47 AM) CRP High Sens [0.00-3.00 mg/L] 0.34 mg/L 2 (09/19/23 8:47 AM) Creatinine Level [0.55-1.02 mg/dL] 0.82 mg/dL (09/19/23 8:47 AM) T3, Free [facility] [2.8-5.3 pg/mL] 3.8 pg/mL 3 *NA* (09/19/23 8:47 AM) Eos, Auto [1.0-6.0 %] 0.4 % *LOW* (09/19/23 8:47 AM) Vitamin D, 25-OH, Total [facility] [30-100 ng/m L] 42 ng/mL 4 *NA* (09/19/23 8:47 AM) 1Interpretive Data: Normal: >8.6 ng/mL Deficient: <3.0 ng/mL The results of this assay can be falsely elevated due to the consumption of Biotin. Please instructpatients to discontinue the use of vitamins or supplements that contain Biotin 12 hours before blood collection. 2Interpretive Data: Risk Level Age/Sex Range Units Less Risk All <1.0 mg/L Average Risk All 1.0 - 3.0 mg/L High Risk All >3.0 mg/L *Indeterminate All >10.0 mg/L *May be an indication of inflammation or infection. 3Result Comment: Test performed [place] [address] 4Result Comment: Vitamin D 25,OH Interpretive Ranges: Deficiency: <10.0 ng/mL Insufficiency: 10.0 - 30.0 ng/mL Sufficiency: 30.0 - 100.0 ng/mL Toxicity: >100.0 ng/mL Test performed [place] [address] Social History Social History Type Response Smoking Status Not obtained due to cognitive impairment 1 entered on: 01/06/22 Sex Female 1pt unrespon Patient Care team information Care Team Personnel Name: Madhavi Smith Position: No Access Member Role: Primary Care Physician Address: Address: [address] [address] Care Team Related Persons Name: AILIN CLEMENTE
--- OUTSIDE RECORDS SUMMARY | 2024-04-12 11:15 | XMS_ITS | Encounter Summary ---
Author Organization [facility] Address [facility] [place] [address] Care Team Providers Care Learning Facilitator Name Role Phone Luis Madhavi JARVIS Primary Care Provider [phone] Encounter Details Date Type Department Care Team (Late st Contact Info) Description 08/08/2023 3:00 PM EST TH Visit (TeleHealth) Psychiatry and [place] [id number] Maria Fernanda Man MD [facility] [place] [address] PATIENT NOT SEEN Social History Tobacco Use Types Packs/Day Years Used Date Smoking Tobacco: Never Smokeless Tobacco: Never Alcohol Use Standard Drinks/Week Comments Yes 1 (1 standard drink = 0.6 oz pur e alcohol) interminttent Sex and Gender Information Value Date Recorded Sex Assigned at Not on file Gender Identity Not on file Sexual Orientation Not on file documented as of this encounter Progress Notes * Jeremy Condon III, MD - 08/08/2023 3:00 PM EST Patient was not seen and will be rescheduled. * Maria Fernanda Man MD - 08/08/2023 1:00 PM EST This patient was not seen in this encounter. Patient had technical difficulties and will be rescheduled. documented in this encounter Plan of Treatment Not on file documented as of this encounter Visit Diagnoses Diagnosis DH PATIENT NOT SEEN documented in this encounter Care Teams Learning Facilitator Relationship Specialty Start Date End Date Madhavi Smith APRN [address] [place] [address] PCP - General Family Medicine 12/14/21 documented as of this encounter
--- OUTSIDE RECORDS SUMMARY | 2024-04-12 11:15 | XMS_ITS | Encounter Summary ---
[place] [address] Care Team Providers Care Package Drier Name Role Phone Madhavi Smith APRN Primary Care Provider [phone] Encounter Details Date Type Department Care Team (Latest Contact Info) Description 11/14/2023 Travel Social History Tobacco Use Types Packs/Day Years [...] on filedocumented in this encounter Care Teams Package Drier Relationship Specialty Start Date End Date Madhavi Smith APRN [address] [place] [address] PCP - General Family Medicine 12/14/21 documented as of this encounter
--- OUTSIDE RECORDS SUMMARY | 2024-04-12 11:15 | XMS_ITS | Encounter Summary ---
[place] [address] Care Team Providers Care Corporate Treasury Analyst Name Role Phone Madhavi Smith APRN Primary Care Provider [phone] Reason for Referral * Psychiatric (Routine) - Closed Specialty Diagnoses / Procedures Referred By Contac t Referred To Contact Psychiatry Diagnoses Depression, unspecified depression type RECENTLY COMPLETED TMS TREATMENTS, FEELS THEY WERE HELPFUL IN REGARDS TO DEPRESSION, STRUGGLING DAILY W/ ANXIETY THAT PERSISTS MOST OF THE DAY, SERIOUS SUICIVE ATTEMPT WITHIN LAST YEAR, CHRONIC MENTAL HEALTH CONCERNS Sirena Obrien APRN [address] [place] [address] [facility] [address] [place] [id number] Referral ID Status Reason Start Date Expiration Date V isits Requested Visits Authorized [id number] Closed Consult, Test & Treat PCP Updated and/or Approved 06/24/2023 12/23/2023 6 6 Encounter Details Date Type Department Care Team (Latest Contact Info) Description 07/18/2023 Transcribe Orders eD Incoming Referrals [phone] Sirena Obrien APRN [address] [place] [address] Depression, unspecified depression type Social History Tobacco Use Types Packs/Day Years Used Date Smoking Tobacco: Never Smokeless Tobacco: Never Alcohol Use Standard Drinks/Week Comments Yes 1 (1 standard drink = 0.6 oz pur e alcohol) interminttent Sex and Gender Information Value Date Recorded Sex Assigned at Not on file Gender Identity Not on file Sexual Orientation Not on file documented as of this encounter Plan of Treatment Scheduled Referrals Name Type Priority Associated Diagnoses Orde r Schedule Referral to Psychiatry Outpatient Referral Routine Depression, unspecified depression type Ordered: 07/18/2023 documented as of this encounter Visit Diagnoses Diagnosis Depression, unspecified depression type documented in this encounter Care Teams Corporate Treasury Analyst Relationship Specialty Start Date End Date Madhavi Smith APRN [address] [place] [address] PCP - General Family Medicine 12/14/21 documented as of this encounter
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
--- OUTSIDE RECORDS SUMMARY | 2024-04-12 11:15 | XMS_ITS | Encounter Summary ---
Author Organization [facility] Address [address] [place] [address] Care Team Providers Care Nailer Machine Name Role Phone Unknown, Provider Primary Care Provider [phone] Encounter Details Date Type Department Care Team (Late st Contact Info) Description 03/19/2019 Phlebotomy Only [facility] [address] [place] [address] Rn Assessment, Outpatient Social History Tobacco Use Types Packs/Day Years Used Date Smoking Tobacco: Never Assessed Sex and Gender Information Value Date Recorded Sex Assigned at Not on file Gender Identity Not on file Sexual Orientation Not on file documented as of this encounter Plan of Treatment Not on file documented as of this encounter Visit Diagnoses Not on filedocumented in this encounter Care Teams Nailer Machine Relationship Specialty Start Date End Date Unknown, Provider, PCP - General 03/19/19 documented as of this encounter
--- OUTSIDE RECORDS SUMMARY | 2024-04-12 11:15 | XMS_ITS | Referral Summary ---
Author Organization [facility] Address [address] [place] [address] Care Team Providers Care Nuclear Fuels Reclamation Engineer Name Role Phone Unknown, Provider Primary Care Provider Social History Tobacco Use Types Packs/Day Years Used Date Smoking Tobacco: Never Assessed Interpersonal Safety Answer Date Record ed Physically Hurt Never 03/23/2020 Verbally Threaten Not on file 03/23/2020 Sex and Gender Information Value Date Recorded Sex Assigned at Not on file Gender Identity Not on file Sexual Orientation Not on file Plan of Treatment Not on file Care Teams Nuclear Fuels Reclamation Engineer Relationship Specialty Start Date End Date Unknown, Provider, PCP - General 03/19/19
--- OUTSIDE RECORDS SUMMARY | 2024-04-12 11:15 | XMS_ITS | Clinical Summary ---
Author Organization [facility] Address [address] [place] [address] Care Team Providers Care Engagement Liaison Name Role Phone Unknown, Provider Primary Care Provider Social History Tobacco Use Types Packs/Day Years Used Date Smoking Tobacco: Never Assessed Interpersonal Safety Answer Date Record ed Physically Hurt Never 03/23/2020 Verbally Threaten Not on file 03/23/2020 Sex and Gender Information Value Date Recorded Sex Assigned at Not on file Gender Identity Not on file Sexual Orientation Not on file Plan of Treatment Health Maintenance Due Date Last Done Comments Hepatitis C Screen 1960 RSV Immunization ( o r 60+ Years) (1 - 1-dose 60+ series) 2019 COVID-19 Vaccine (2022- season) 2023 Care Teams Engagement Liaison Relationship Specialty Start Date End Date Unknown, Provider, PCP - General 03/19/19
--- OUTSIDE RECORDS SUMMARY | 2024-04-12 11:15 | XMS_ITS | Encounter Summary ---
Author Organization [facility] Address [address] [place] [address] Care Team Providers Care Auto Rental Supervisor Name Role Phone Unknown, Provider Primary Care Provider [phone] Encounter Details Date Type Department Care Team (Latest Contact Info) Description 03/19/2019 13:05 EDT - 03/19/2019 23:59 EDT Hospital Encounter [facility] [place] - [address] [address] Edwar Seymour MD [address] [place] [address] Discharge Disposition: Auto Discharge Social History Tobacco Use Types Packs/Day Years Used Date Smoking Tobacco: Never Assessed Sex and Gender Information Value Date Recorded Sex Assigned at Not on file Gender Identity Not on file Sexual Orientation Not on file documented as of this encounter Discharge Diagnoses Diagnosis Z79.899 Other nursing home (current) drug therapy-Z79.899[ICD-10-CM] documented in this encounter Discharge Disposition Disposition Code Departure Means Destination Auto Discharge Home documented in this encounter Plan of Treatment Not on file documented as of this encounter Procedures Procedure Name Priority Date/Time Associated Diagnosis Comments BASIC METABOLIC PANEL (BMP) Routine 03/19/2019 13:23 EDT documented in this encounter Results * BASIC METABOLIC PANEL (BMP) (03/19/2019 13:23 EDT) Sodium 137 136 - 145 mEq/L 03/19/2019 15:17 EDT [facility] Potassium 4.4 3.5 - 5.0 mEq/L 03/19/2019 15:17 [facility] Chloride 101 96 - 110 mEq/L 03/19/2019 15:17 [facility] CO2 30 22 - 32 mEq/L 03/19/2019 15:17 [facility] BUN 14 10 - 26 mg/dl 03/19/2019 15:17 [facility] Creatinine 0.97 0.52 - 1.04 mg/dl 03/19/2019 15:17 [facility] GFR, Calculated 64 >60 ml/min/1.7 3m2 03/19/2019 15:17 [facility] Comment: eGFR calculated using CKD-EPI equation for non Americans. Multiply eGFR by 1.16 for Americans. Calcium 9.6 8.5 - 10.5 mg/dl 03/19/2019 15:17 [facility] Calculated Calcium 9.5 8.5 - 10.5 mg/dl 03/19/2019 15:17 [facility] Glucose, Serum 89 70 - 100 mg/dl 03/19/2019 15:17 [facility] Fasting? No 03/19/2019 13:17 [facility] BLOOD SPECIMEN / Unknown 03/19/2019 13:23 EDT 03/19/2019 14:46 EDT Edwar Seymour MD CHEMISTRY & BLOOD GA S ORDERABLES Performing Organization Address City/State/[facility] Co de Phone Number [facility] [address] [place] [address] documented in this encounter Visit Diagnoses Not on filedocumented in this encounter Care Teams Auto Rental Supervisor Relationship Specialty Start Date End Date Unknown, Provider, PCP - General 03/19/19 documented as of this encounter
--- OUTSIDE RECORDS SUMMARY | 2024-04-12 11:15 | XMS_ITS | Encounter Summary ---
Author Organization [facility] Address [address] [place] [address] Care Team Providers Care Commercial Real Estate Attorney Name Role Phone Liang Deluca MD Primary Care Provider [phone] Encounter Details Date Type Department Care Team (Late st Contact Info) Description 02/06/2009 Orders Only [facility] - [facility] ([facility]) [address] [place] [id number] Jm Sow MD Social History Tobacco Use Types Packs/Day Years Used Date Smoking Tobacco: Never Assessed Sex and Gender Information Value Date Recorded Sex Assigned at Not on file Gender Identity Not on file Sexual Orientation Not on file documented as of this encounter Plan of Treatment Not on file documented as of this encounter Procedures Procedure Name Priority Date/Time Associated Diagnosis Comments HPV DETECTION, HIGH RISK TYPES Routine 02/06/2009 7:32 EDT CYTOPATHOLOGY Routine 02/06/2009 0:00 EDT documented in this encounter Results * HUMAN PAPILLOMA VIRUS DNA TEST (02/06/2009 7:32 EDT) Specimen Description Cervix, ThinPrep vial [facility] Result Negative for HPV types 16, 18, 31, 33, 35, 39, 45, 51, 52, 56, 58, 59, and 68. [facility] Report Status Final 02/18/2009 [facility] 02/06/2009 7:32 EDT 02/14/2009 7:32 EDT Jm Sow MD MICROBIOLOGY - GENER AL ORDERABLES [facility] [address] [place] [address] * CYTOPATHOLOGY (02/06/2009 0:00 EDT) Pathology Report: CYTOPATHOLOGY REPORT ? Reports generated via electronic interface contain original data; ? however they are lacking the format of the original report. ? Caution should be taken when reading/interpreti ng unformatted reports. ? Name: ? ROSA ARMENDARIZ ? Accession #: ? [id number] ? : ? 1960 (Age: 48) ??F ?Collect Date: ? 02/06/2009 ? Location: ? [facility] ? Receive Date: ? 02/10/2009 ? Provider: ?JM B SOW MD ? Copy to: ? Specimen/Source: ?Pap Test, Cervix/Endocervix, ThinPrep Imaging System ? with manual evaluation ? Last Menstrual Period: ? 6/4/09 ? Other: ? HPVDX - HPV testing requested regardless of diagnosis on current ThinPrep Pap ?? test. ? SPECIMEN ADEQUACY ? Satisfactory for Evaluation ? - transformation zone component present ? GENERAL CATEGORIZATION ? Negative for Intraepithelial Lesion or Malignancy ? Document reviewed and electronically signed by: ? Ava B. Ta, SCT(ASCP) ? Report Date: ??02/13/2009 10:44 ? End of Report ? [facility] 02/06/2009 02/10/2009 Jm Sow MD PATHOLOGY ORDERABLES [facility] [address] [place] [address] documented in this encounter Visit Diagnoses Not on filedocumented in this encounter Care Teams Commercial Real Estate Attorney Relationship Specialty Start Date End Date Liang Deluca MD [address] [place] [address] [address] [place] [phone] PCP - General 02/10/09 03/18/19 documented as of this encounter
--- OUTSIDE RECORDS SUMMARY | 2024-04-12 11:15 | XMS_ITS | Encounter Summary ---
Author Organization [facility] Address [address] [place] [address] Care Team Providers Care Box Printer Name Role Phone Liang Deluca MD Primary Care Provider [phone] Encounter Details Date Type Department Care Team (Late st Contact Info) Description 05/29/2002 Results Only [facility] [address] [place] [address] Jm Sow MD Social History Tobacco Use Types Packs/Day Years Used Date Smoking Tobacco: Never Assessed Sex and Gender Information Value Date Recorded Sex Assigned at Not on file Gender Identity Not on file Sexual Orientation Not on file documented as of this encounter Plan of Treatment Not on file documented as of this encounter Procedures Procedure Name Priority Date/Time Associated Diagnosis Comments CYTOPATHOLOGY Routine 05/29/2002 0:00 EDT documented in this encounter Results * CYTOPATHOLOGY (05/29/2002 0:00 EDT) Pathology Report: CYTOPATHOLOGY REPORT Reports generated via electronic interface contain original data; however they are lacking the format of the original report. Caution should be taken when reading/interpreti ng unformatted reports. Name: ? GONZALO ARMENDARIZNA ? Accession #: ? [id number] : ? 1960 (Age: 41) ??F ?Collect Date: ? 05/29/2002 Location: ? [facility] ? Receive Date: ? 05/31/2002 Provider: ?JM SOW MD Copy to: ? Specimen/Source: ?ThinPrep Pap Test, Cervix/Endocervix Last Menstrual Period: ? 02/20/02 ? SPECIMEN ADEQUACY ? Satisfactory for Evaluation - transformation zone component present GENERAL CATEGORIZATION ? Negative for Intraepithelial Lesion or Malignancy INTERPRETATION ? Fungal organisms present morphologically consistent with Shirin species. ? Document reviewed and electronically signed by: ? Casper Dean, [place](ASCP) ? Report Date: ??06/04/2002 13:24 End of Report [facility] 05/29/2002 05/31/2002 Jm Sow MD PATHOLOGY ORDERABLES [facility] [address] [place] [address] documented in this encounter Visit Diagnoses Not on filedocumented in this encounter Care Teams Box Printer Relationship Specialty Start Date End Date Liang Deluca MD [address] [place] [address] [address] [place] [phone] PCP - General 02/10/09 03/18/19 documented as of this encounter
--- OUTSIDE RECORDS SUMMARY | 2024-04-12 11:15 | XMS_ITS | Encounter Summary ---
Author Organization [facility] Address [address] [place] [address] Care Team Providers Care Orthopedics Nurse Name Role Phone Unknown, Provider Primary Care Provider [phone] Encounter Details Date Type Department Care Team (Late st Contact Info) Description 09/19/2023 Lab Requisition [facility] Pathology & Laboratory Medicine - [facility] [address] [place] [address] Outr Resulting Lab, Provider Social History Tobacco Use Types Packs/Day [...] Procedure Name Priority Date/Time Associated Diagnosis Comments HOLD SST Today 09/19/2023 8:47 EST VITAMIN D (25,OH) Today 09/19/2023 8:47 EST INSULIN Today 09/19/2023 8:47 EST T3 FREE Today 09/19/2023 8:47 EST documented in this encounter Results * HOLD SST (09/19/2023 8:47 EST) Hold Hold 09/19/2023 22:46 EST [facility] Blood VENOUS BLOOD / Unknown 09/19/2023 8:47 EST 09/19/2023 21:34 EST Provider Outr Resulting Lab LAB INFO SER VICE AND SUPPORT & PHONE RESULT Performing Organization Address [facility] Co de Phone Number [facility] [address] [place] [address] * INSULIN (09/19/2023 8:47 EST) Insulin 4.9 <29.0 uIU/mL 09/21/2023 9:27 EST [facility] Comment: Displayed Reference Range applies to fasting specimens only. Blood VENOUS BLOOD / Unknown 09/19/2023 8:47 EST 09/19/2023 21:33 EST Provider Outr Resulting Lab CHEMISTRY & BLOOD GAS ORDERABLES Performing Organization Address [facility] de Phone Number [facility] [address] [place] [address] * T3 FREE (09/19/2023 8:47 EST) T3, Free 3.8 2.8 - 5.3 pg/mL 09/19/2023 22:38 EST [facility] Blood VENOUS BLOOD / Unknown 09/19/2023 8:47 EST 09/19/2023 21:33 EST Provider Outr Resulting Lab CHEMISTRY & BLOOD GAS ORDERABLES Performing Organization Address [facility] de Phone Number [facility] [address] [place] [address] * VITAMIN D (25,OH) (09/19/2023 8:47 EST) 25OH Vitamin D Tot 42 30 - 100 ng/mL 09/20/2023 10:20 EST [facility] Comment: Vitamin D 25,OH Interpretive Ranges: Deficiency: ??<10.0 ng/mL Insufficiency: ??10.0 - 30.0 ng/mL Sufficiency: ??30.0 - 100.0 ng/mL Toxicity: ??>100.0 ng/mL Blood VENOUS BLOOD / Unknown 09/19/2023 8:47 EST 09/19/2023 21:33 EST Provider Outr Resulting Lab CHEMISTRY & BLOOD GAS ORDERABLES Performing Organization Address City/State/[facility] Co de Phone Number [facility] [address] [place] [address] documented in this encounter Visit Diagnoses Not on filedocumented in this encounter Care Teams Orthopedics Nurse Relationship Specialty Start Date End Date Unknown, Provider, PCP - General 03/19/19 documented as of this encounter
--- OUTSIDE RECORDS SUMMARY | 2024-04-12 11:15 | XMS_ITS | Clinical Summary ---
Author Organization [facility] Address [facility] [place] [address] Care Team Providers Care System Trainer Name Role Phone Madhavi Smith APRN Primary Care Provider [phone] Allergies Active Allergy Reactions Criticality Noted Date Comments Lactase Diarrhea Low 08/23/2013 Latex Hives Sulfa (Sulfonamide Antibiotics) Hives Medium Trazodone Other (See Comments) 08/15/2013 headache Medications Medication Sig Dispensed Refills Start Date End Date Status mirtazapine (REMERON) 30 mg tabletIndications:m ajor depressive disorder Take 1 tablet by mouth nightly. Indications: Major Depressive Disorder 30 tablet 0 08/21/2013 Active cholecalciferol, Vitamin D3, 125 mcg (5,000 unit) Tablet Take 5,000 Units by mouth daily. Active b complex vitamins Capsule Take 1 capsule by mouth daily. Active OLANZapine (ZyPREXA) 2.5 mg Tablet Take 1 tablet by mouth nightly. 14 tablet 1 01/22/2022 Active vilazodone (Viibryd) 20 mg Tablet Take 2 tablets by mouth daily. 28 tablet 01/23/2022 Active zolpidem (Ambien) 5 mg Tablet 5-10 mg nightly as needed. 02/05/2022 Active LORazepam (Ativan) 1 mg tablet Take 1 mg by mouth daily as needed for Anxiety. 02/09/2023 Active busPIRone (Buspar) 30 mg tablet Bedtime 06/18/2021 Active busPIRone (Buspar) 10 mg tablet 10/14/2023 Active busPIRone (Buspar) 15 mg tablet 11/09/2023 Active lactobacillus rhamnosus, GG, (CULTURELLE) 10 billion cell Capsule Take 1 capsule by mouth daily. Active naproxen (Naprosyn) 500 mg tablet Take 1 tablet by mouth every 12 hours as needed. For migraine. Do not use more than 2 days per week. 45 tablet 1 11/14/2023 Active hydrOXYzine (Atarax) 10 mg tablet 1 tablet at onset of mild to moderate headache. Can repeat in 8-10 hours 45 tablet 1 11/14/2023 Active Active Problems Problem Noted Date Diagnosed Date Severe protein-calorie malnutrition 01/20/2022 Overview (01/20/2022): >5% weight loss in 1 month, Moderate subcutaneous fat loss and Moderate lean muscle loss is consistent with severe protein-calorie malnutrition in the setting socia/environmental factors (pt with AN exacerbated by COVID+ infection) (Jazmin, JPEN J Parenteral Enteral Nutr. 2011; 36(3): 273-83) Overdose 01/06/2022 Migraine without aura and wi thout status migrainosus, not intractable 07/05/2018 Alopecia 10/09/2015 Fatigue 10/09/2015 Cold intolerance 10/09/2015 Poor sleep pattern 10/09/2015 Headache(784.0) 10/09/2015 Irritable bowel syndrome with diarrhea 6 Depression 10/09/2015 OFELIA (generalized anxiety disorder) 10/09/2015 Constipation 10/09/2015 Diarrhea 10/09/2015 Dyschezia 10/09/2015 Family history of diabetes mellitus 10/09/2015 Postmenopausal 10/09/2015 Pelvic pressure syndrome 09/30/2015 Dyspareunia 09/30/2015 History of menorrhagia 09/30/2015 Generalized anxiety disorder 12/17/2012 Severe episode of recurrent major depressive dis order 07/07/2012 MDD (major depressive disorder), recurrent episo de, severe 07/05/2012 Overview (01/19/2022): Worsening depression over past 5 months with suicidal preparatory behavior over the past three months Resolved Problems Problem Noted Date Diagnosed Date Resolved Date Hot flashes 10/09/2015 03/15/2018 Night sweats 10/09/2015 03/15/2018 Suicidal ideations 12/17/2012 3 Immunizations Name Administration Dates Next Due Tdap 01/07/2022 Social History Tobacco Use Types Packs/Day Years Used Date Smoking Tobacco: Never Smokeless Tobacco: Never Alcohol Use Standard Drinks/Week Comments Yes 1 (1 standard drink = 0.6 oz pur e alcohol) interminttent Sex and Gender Information Value Date Recorded Sex Assigned at Not on file Gender Identity Not on file Sexual Orientation Not on file Last Filed Vital Signs Vital Sign Reading Time Taken Comments Blood Pressure 97/55 11/14/2023 12:19 PM EDT Pulse 70 11/14/2023 12:19 PM EDT Temperature 36.3 ??C (97.3 ??F) 01/22/2022 7:32 AM ED T Respiratory Rate 12 01/22/2022 7:32 AM EDT Oxygen Saturation 100% 01/22/2022 7:32 AM EDT Inhaled Oxygen Concentration - - Weight 49.9 kg (110 lb) 09/22/2022 3:46 PM EST Height 168.9 cm (5' 6.5) 09/22/2022 3:46 PM EST reported Body Mass Index 17.49 09/22/2022 3:46 PM EST Plan of Treatment Health Maintenance Due Date Last Done Comments CT Colonography 1960 Colonoscopy 1960 Colorectal Cancer Screening 1960 FIT DNA 1960 FIT 1960 Sigmoidoscopy (10 year) with FIT yearly 1960 Sigmoidoscopy 1960 HIV screen 11/20/1977 Hepatitis C Screening 11/20/1977 HPV test 11/20/1989 PAP Smear 11/20/1989 Breast Cancer Share Decision Needed 1999 Breast Cancer screening 1999 Zoster vaccine (1 of 2) 11/20/2009 Covid-19 Vaccine ( - season) 2023 Influenza (Flu) vaccine (1 o f 1 - Influenza standard series) 04/22/2024 Tetanus vaccine 01/08/2032 01/07/2022 Tdap adult Completed 01/07/2022 Advance Directives Documents on File Type Date Recorded Patient Counter Tender Expl anation Advance Directives and Livin g Will 10/21/2010 8:17 AM * Attempt Cardiopulmonary Resuscitation - Inpatient (Latest Code Status on File) Date Activated Date Inactivated Comments 01/18/2022 12:50 PM 01/22/2022 6:05 PM Question Answer Comments Code Status decision made by: Patient * Attempt Cardiopulmonary Resuscitation - Inpatient Date Activated Date Inactivated Comments 01/10/2022 8:50 AM 01/18/2022 12:50 PM Question Answer Comments Code Status decision made by: Healthcare Agent (DPOA)PatientTwo - Attending Decision Name (and relationship if needed): Content of discussion: Code status rever sed - consulted psych who report it was in context of depression/suicidality, must re-assess code status once patient mentating better * Do NOT Attempt CPR - Inpatient Date Activated Date Inactivated Comments 01/07/2022 5:44 PM 01/10/2022 8:50 AM Question Answer Comments Code Status decision made by: Healthcare Agent ( DPOA) Name (and relationship if needed): Tunde paul Content of discussion: Pt would not want CPR res sucitation Independent of Code Status d ecision, are there any PRE Arrest limitations (Intubation, Pressors, Cardioversion / Pacing, etc)? No Per policy, patient may rece sully all applicable life support PRE arrest: Acknowledged * Do NOT Attempt CPR - Inpatient Date Activated Date Inactivated Comments 01/07/2022 5:33 PM 01/07/2022 5:44 PM Question Answer Comments Code Status decision made by: Healthcare Agent ( DPOA) Name (and relationship if needed): Independent of Code Status d ecision, are there any PRE Arrest limitations (Intubation, Pressors, Cardioversion / Pacing, etc)? No Per policy, patient may rece sully all applicable life support PRE arrest: Acknowledged * Do NOT Attempt CPR - Inpatient Date Activated Date Inactivated Comments 01/07/2022 3:19 PM 01/07/2022 5:33 PM Question Answer Comments Code Status decision made by: Healthcare Agent ( DPOA) Name (and relationship if needed): Tunde Paul Content of discussion: Pt would not want CPR per and described this while competent. Independent of Code Status d ecision, are there any PRE Arrest limitations (Intubation, Pressors, Cardioversion / Pacing, etc)? No Per policy, patient may rece sully all applicable life support PRE arrest: Acknowledged Care Teams System Trainer Relationship Specialty Start Date End Date Madhavi Smith APRN [address] [place] [address] PCP - General Family Medicine 12/14/21
--- OUTSIDE RECORDS SUMMARY | 2024-04-12 11:16 | XMS_ITS | Encounter Summary ---
[place] [address] Care Team Providers Care First Aid Trainer Name Role Phone Madhavi Smith APRN Primary Care Provider [phone] Encounter Details Date Type Department Care Team (Latest Contact Info) Description 05/27/2023 Travel Social History Tobacco Use Types Packs/Day [...] on filedocumented in this encounter Care Teams First Aid Trainer Relationship Specialty Start Date End Date Madhavi Smith APRN [address] [place] [address] PCP - General Family Medicine 12/14/21 documented as of this encounter
--- OUTSIDE RECORDS SUMMARY | 2024-04-12 11:16 | XMS_ITS | Encounter Summary ---
Author Organization [facility] [place] [address] Care Team Providers Care Lay Out Worker Name Role Phone Madhavi Smith APRN Primary Care Provider [phone] Encounter Details Date Type Department Care Team (Late st Contact Info) Description 03/22/2023 Telephone Psychiatry [place] [phone] Milady Ochoa Social History Tobacco Use Types Packs/Day Years Used Date Smoking Tobacco: Never Smokeless Tobacco: Never Alcohol Use Standard Drinks/Week Comments Yes 1 (1 standard drink = 0.6 oz pur e alcohol) interminttent Sex and Gender Information Value Date Recorded Sex Assigned at Not on file Gender Identity Not on file Sexual Orientation Not on file documented as of this encounter Miscellaneous Notes * Telephone Encounter - Milady Ochoa - 03/22/2023 1:07 PM EDT Patient calling in again to see if appointment you offered is still available. Please call back to discuss [phone] documented in this encounter Plan of Treatment Not on file documented as of this encounter Visit Diagnoses Not on filedocumented in this encounter Care Teams Lay Out Worker Relationship Specialty Start Date End Date Madhavi Smith APRN [address] [place] [address] PCP - General Family Medicine 12/14/21 documented as of this encounter
--- OUTSIDE RECORDS SUMMARY | 2024-04-12 11:16 | XMS_ITS | Encounter Summary ---
[place] [address] Care Team Providers Care Sueding Machine Tender Name Role Phone Madhavi Smith APRN Primary Care Provider [phone] Encounter Details Date Type Department Care Team (Latest Contact Info) Description 04/13/2023 Travel Social History Tobacco Use Types Packs/Day [...] on filedocumented in this encounter Care Teams Sueding Machine Tender Relationship Specialty Start Date End Date Madhavi Smith APRN [address] [place] [address] PCP - General Family Medicine 12/14/21 documented as of this encounter
--- OUTSIDE RECORDS SUMMARY | 2024-04-12 11:16 | XMS_ITS | Encounter Summary ---
[place] [address] Care Team Providers Care Miller Head Name Role Phone Madhavi Smith APRN Primary Care Provider [phone] Encounter Details Date Type Department Care Team (Latest Contact Info) Description 05/16/2023 Travel Social History Tobacco Use Types Packs/Day [...] on filedocumented in this encounter Care Teams Miller Head Relationship Specialty Start Date End Date Madhavi Smith APRN [address] [place] [address] PCP - General Family Medicine 12/14/21 documented as of this encounter
--- OUTSIDE RECORDS SUMMARY | 2024-04-12 11:16 | XMS_ITS | Encounter Summary ---
Author Organization [facility] Address [facility] [place] [address] Care Team Providers Care Textile Conversion Manager Name Role Phone Madhavi Smith APRN Primary Care Provider [phone] Reason for Visit * Surgical (Routine) - Canceled Specialty Diagnoses / Procedures Referred By Contac t Referred To Contact Psychiatry Diagnoses Severe major depression without psychotic features Procedures Transcranial Magnetic Stimulation Giuseppe Dejesus MD [facility] [place] [address] [facility] [place] [address] Referral ID Status Reason Start Date Expiration Date V isits Requested Visits Authorized [id number] Canceled Consult, Test & Treat 02/28/2023 02/28/2024 36 36 Encounter Details Date Type Department Care Team (Latest Contact Info) Description 04/19/2023 2:00 PM EDT Procedure visit Psychiatry and Behavioral [place] [address] Mone Lieberman MD [facility] [place] [address] Severe episode of recurrent major depressive disorder, without psychotic features Social History Tobacco Use Types Packs/Day Years Used Date Smoking Tobacco: Never Smokeless Tobacco: Never Alcohol Use Standard Drinks/Week Comments Yes 1 (1 standard drink = 0.6 oz pur e alcohol) interminttent Sex and Gender Information Value Date Recorded Sex Assigned at Not on file Gender Identity Not on file Sexual Orientation Not on file documented as of this encounter Progress Notes * Leigh Ann Mcdonough RN - 04/19/2023 2:00 PM EDT Images from the original note were not included. TMS TREATMENT NOTE Aziza Tamez received Transcranial Magnetic Stimulation (TMS) The primary diagnosis is: MDD Recurrent w/o Psychotic Features (F33.2) Treatment Phase: Acute Treatment Number: 16 Interval history: Notices improvement with mood, facial sinus pressure persists (discussed compounding factors of [place] fires and seasonal allergies), patient no longer taking sudafed as it is not bothersome. Anxiety increased when depression started to lift, patient states she believe her anxiety hasdecreased to some degree since. Patient takes PRN anxiolytic post treatment with good effect. Patient and endorse patient being more receptive to making plans and executing them (despite enduring mild anxiety intermittently throughout plan), patient/ appreciative of this shift from not being able to leave the house prior TMS commencement, that she considers seeing her grandkids/son hCris is a supportive factor. Patient d/c Vit D/K post elevated lab draw per POC. 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 Otherwise prefersto stay at 1400 time slot. Patient endorses contacting [facility] to arrange appt dates corresponding to this plan. 04/19 - Reports she spoke with Annette this morning and scheduled her future appointments after her vacation, looking forward to going away now that everything is straightened out. 1 HEARING AID TO BE REMOVED PRIOR TO TMS PRE-TMS BASELINE Questionnaire Scores (prior to starting on 03/29/23- ): QIDS-SR = 22 on 02/25/23 and 24 on 03/29/23 PHQ-9 = 25 on 02/25/23 and 14 on 03/29/23 OFELIA-7= 19 on 02/25/23 John: 08/31 - completed 02/28/23 Patient reports improvement during current course of TMS: Patients state there has been a subtle improvement. She is beginning to express mild interest and seems more involved in life. Patient reports TMS side effects since the last TMS treatment: Facial sinus pressure. Patient reports changes in overall health since last TMS treatment: No Patient reports changes in medications since last TMS treatment: No PHQ9 Questionnaires Data (Clinic and Pt Entered): last 4 values of depression scores 02/25/2023 4:32 PM 03/29/2023 1:40 PM 04/06/2023 1:46 PM 04/13/2023 1:31 PM PHQ-9 Score via Pt Questionnaire PHQ - 9 Score 25 (Severe Depression) 24 (Severe Depression) 20 (Severe Depression) 14 (Moderate Depression) 02/25/2023 4:32 PM 03/29/2023 1:40 PM 04/06/2023 1:46 PM 04/13/2023 1:31 PM PHQ-9: Scores Only Post 12/20/22 Conversion PHQ-9 Score 25 (Severe Depression) 24 (Severe Depression) 20 (Severe Depression) 14 (Moderate Depression) 02/25/2023 4:36 PM 03/29/2023 1:42 PM 04/06/2023 1:50 PM 04/13/2023 1:36 PM qids score - last 4 scores Total QIDS-SR Score 22 (Very Severe) 14 (Moderate) 19 (Severe) 12 (Moderate) Timeout was performed, in which the patient's name//MRN, and the treatment protocol, were confirmed. The patient's treatment cap was fitted and the patient was seated in the treatment chair, per standard protocol. Patient received TMS using a uShare device according to the following protocol: Treatment side: Left Treatment location: DLPFC Motor threshold (MT) performed today: No Patient MT: 55 % of amplitude Treatment level (Max %MT achieved): 120% Parameter Settings: Waveform Hz Train Pulses # Trains Inter-train Interval (sec) Pulse Total Total Time (min) Theta Burst 5 10 20 8 600 3.17 TMS side effects reported by patient: Facial twitching Complications: None Changes/recommendations for next treatment: Continue current protocol- Goals of care: Short term: Provide TMS treatment at the target parameter settings (Please see the TMS compounding pharmacy technician note for moredetail.). Monitor the patient's tolerance of TMS. Minimize and manage TMS side-effects. Monitor the patient's therapeutic response to TMS. intermodal dispatcher Complete acute TMS series, as planned. Achieve at least a 50% reduction in the patient's depressive symptoms, as measured by a research-validated depression screen (PHQ-9, QIDS-SR). Next treatment date: 04/21/23 2:00 PM PRANEETH MD was on-site and immediately available during the duration of today's treatment. Leigh Ann Mcdonough RN documented in this encounter Plan of Treatment Not on file documented as of this encounter Visit Diagnoses Diagnosis Severe episode of recurrent major depressive disorder, without psychotic features documented in this encounter Care Teams Textile Conversion Manager Relationship Specialty Start Date End Date Madhavi Smith APRN [address] [place] [address] PCP - General Family Medicine 12/14/21 documented as of this encounter
--- OUTSIDE RECORDS SUMMARY | 2024-04-12 11:16 | XMS_ITS | Encounter Summary ---
Author Organization [facility] Address [facility] [place] [address] Care Team Providers Care Accounts Payable Assistant Name Role Phone Luis Madhavi JARVIS Primary Care Provider [phone] Encounter Details Date Type Department Care Team (Latest Contact Info) Description 05/11/2023 2:00 PM EDT Procedure visit Psychiatry [place] [phone] Mone Lieberman MD [facility] [place] [address] Severe episode of recurrent major depressive disorder, [...] as of this encounter Progress Notes * Ilan Olivarez, RN - 05/11/2023 2:00 PM EDT Images from the original note were not included. TMS TREATMENT NOTE Aziza Tamez received Transcranial Magnetic Stimulation (TMS) The primary diagnosis is: MDD Recurrent w/o Psychotic Features (F33.2) Treatment Phase: Acute Treatment Number: 21 Interval history: Patient reports depression continues to improve..Reports no anxiety today. Took 20 mg of atarax with 500 mg of naproxen for a migraine (has a history of migraines). Also reports typically gets a sinus headache after the treatment. 1 HEARING AID TO BE REMOVED PRIOR TO TMS PRE-TMS BASELINE Questionnaire Scores (prior to starting on 03/29/23- ): QIDS-SR = 22 on 02/25/23 and 24 on 03/29/23 PHQ-9 = 25 on 02/25/23 and 14 on 03/29/23 OFELIA-7= 19 on 02/25/23 John: 08/31 - completed 02/28/23 Patient reports improvement during current course of TMS: Yes Patient reports TMS side effects since the last TMS treatment: Slight headache Patient reports changes in overall health since last TMS treatment: No Patient reports changes in medications since last TMS treatment: Yes, see above PHQ9 Questionnaires Data (Clinic and Pt Entered): last 4 values of depression scores 04/06/2023 1:46 PM 04/13/2023 1:31 PM 04/21/2023 2:00 PM 05/09/2023 1:50 PM PHQ-9 Score via Pt Questionnaire PHQ - 9 Score 20 (Severe Depression) 14 (Moderate Depression) 9 (Mild Depression) 7 (Mild Depression) 04/06/2023 1:46 PM 04/13/2023 1:31 PM 04/21/2023 2:00 PM 05/09/2023 1:50 PM PHQ-9: Scores Only Post 12/20/22 Conversion PHQ-9 Score 20 (Severe Depression) 14 (Moderate Depression) 9 (Mild Depression) 7 (Mild Depression) 04/13/2023 1:36 PM 04/21/2023 2:02 PM 05/05/2023 4:09 PM 05/09/2023 1:52 PM qids score - last 4 scores Total QIDS-SR Score 12 (Moderate) 12 (Moderate) 7 (Mild) 10 (Mild) Timeout was performed, in which the patient's name//MRN, and the treatment protocol, were confirmed. The patient's treatment cap was fitted and the patient was seated in the treatment chair, per standard protocol. Patient received TMS using a DevHD device according to the following protocol: Treatment [...] target parameter settings (Please see the TMS urinalysis technician note for moredetail.). Monitor the patient's tolerance of TMS. Minimize and manage TMS side-effects. Monitor the patient's therapeutic response to TMS. [facility] Complete acute TMS series, as planned. Achieve at least a 50% reduction in the patient's depressive symptoms, as measured by a research-validated depression screen (PHQ-9, QIDS-SR). Next treatment date: 05/12/23 2:00 PM TMS MD was on-site and immediately available during the duration of today's treatment. ILAN OLIVAREZ RN documented in this encounter Plan of Treatment Not on file documented as of this encounter Visit Diagnoses Diagnosis Severe episode of recurrent major depressive disorder, without psychotic features documented in this encounter Care Teams Accounts Payable Assistant Relationship Specialty Start Date End Date Madhavi Smith APRN [address] [place] [address] PCP - General Family Medicine 12/14/21 documented as of this encounter
--- OUTSIDE RECORDS SUMMARY | 2024-04-12 11:16 | XMS_ITS | Encounter Summary ---
Author Organization [facility] Address [facility] [place] [address] Care Team Providers Care Carrier Loader Name Role Phone Madhavi Smith APRN Primary Care Provider Reason for Visit * Surgical (Routine) - Canceled Specialty Diagnoses / Procedures Referred By Contac t Referred To Contact Psychiatry Diagnoses Severe major depression without psychotic features Procedures Transcranial Magnetic Stimulation Giuseppe Dejesus MD [facility] [place] [address] [facility] [place] [address] Referral ID Status Reason Start Date Expiration Date V isits Requested Visits Authorized [id number] Canceled Consult, Test & Treat 02/28/2023 02/28/2024 36 36 Encounter Details Date Type Department Care Team (Latest Contact Info) Description 04/14/2023 2:00 PM EDT Procedure visit Psychiatry [place] [address] Janes Huff MD [facility] [place] [address] Severe episode of recurrent major [...] as of this encounter Progress Notes * Emily Garza RN - 04/14/2023 2:00 PM EDT Images from the original note were not included. TMS TREATMENT NOTE Aziza Tamez received Transcranial Magnetic Stimulation (TMS) The primary diagnosis is: MDD Recurrent w/o Psychotic Features (F33.2) Treatment Phase: Acute Treatment Number: 13 Interval history: Notices improvement with mood, facial sinus pressure/ LUX with relief from sudafed/ ibu, and increase in anxiety as mood levels out. Patient takes PRN anxiolytic post treatment with good effect. Patient needs to reschedule last week of treatment falling between 04/26-05/04, as she will be away in [place], waiting for return call from [place]. 1 HEARING AID TO BE REMOVED PRIOR TO TMS This pt made mentioned of no med changes and stated she continues to take CalmEz lavender herb two QAM and ativan . PRE-TMS BASELINE Questionnaire Scores (prior to starting [...] side effects since the last TMS treatment: Headache- 11/29 feels like a sinus headache. Lasted a couple of hours.. Has been taking advil a couple of hours before treatments. Also experienced some dizziness for about 1 hour post yesterday's treatment. Patient reports changes in overall health since last TMS treatment: No Patient reports changes in medications since last TMS treatment: No PHQ9 Questionnaires Data (Clinic and Pt Entered): last 4 values of depression scores Row Labels 02/25/2023 4:32 PM 03/29/2023 1:40 PM 04/06/2023 1:46 PM 04/13/2023 1:31 PM PHQ-9 Score via Pt Questionnaire Section Header. No data exists in this row. PHQ - 9 Score 25 (Severe Depression) 24 (Severe Depression) 20 (Severe Depression) 14 (Moderate Depression) Row Labels 02/25/2023 4:32 PM 03/29/2023 1:40 PM 04/06/2023 1:46 PM 04/13/2023 1:31 PM PHQ-9: Scores Only Post 12/20/22 Conversion Section Header. No data exists in this row. PHQ-9 Score 25 (Severe Depression) 24 (Severe Depression) 20 (Severe Depression) 14 (Moderate Depression) Row Labels 02/25/2023 4:36 PM 03/29/2023 1:42 PM 04/06/2023 1:50 PM 04/13/2023 1:36 PM qids score - last 4 scores Section Header. No data exists in this row. Total QIDS-SR Score 22 (Very Severe) 14 (Moderate) 19 (Severe) 12 (Moderate) Timeout was performed, in which the patient's name//MRN, and the treatment protocol, were confirmed. The patient's treatment cap was fitted and the patient was seated in the treatment chair, per standard protocol. Patient received TMS using a MIKESTAR device according to the following protocol: Treatment [...] target parameter settings (Please see the TMS hot cell technician note for moredetail.). Monitor the patient's tolerance of TMS. Minimize and manage TMS side-effects. Monitor the patient's therapeutic response to TMS. bed bug exterminator Complete acute TMS series, as planned. Achieve at least a 50% reduction in the patient's depressive symptoms, as measured by a research-validated depression screen (PHQ-9, QIDS-SR). Next treatment date: 04/15/23 2:00 PM TMS MD was on-site and immediately available during the duration of today's treatment. Emily Garza RN documented in this encounter Plan of Treatment Not on file documented as of this encounter Visit Diagnoses Diagnosis Severe episode of recurrent major depressive disorder, without psychotic features documented in this encounter Care Teams Carrier Loader Relationship Specialty Start Date End Date Madhavi Smith APRN [address] [place] [address] PCP - General Family Medicine 12/14/21 documented as of this encounter
--- OUTSIDE RECORDS SUMMARY | 2024-04-12 11:16 | XMS_ITS | Encounter Summary ---
Author Organization [facility] Address [facility] [place] [address] Care Team Providers Care E Commerce Retailer Name Role Phone Luis Madhavi JARVIS Primary Care Provider [phone] Encounter Details Date Type Department Care Team (Latest Contact Info) Description 05/13/2023 2:00 PM EDT Procedure visit Psychiatry [place] [phone] Mone Lieberman MD [facility] [place] [address] Severe episode of recurrent major depressive disorder, [...] Notes * Leigh Ann Mcdonough RN - 05/13/2023 2:00 PM EDT Images from the original note were not included. TMS TREATMENT NOTE Aziza Tamez received Transcranial Magnetic Stimulation (TMS) The primary diagnosis is: MDD Recurrent w/o Psychotic Features (F33.2) Treatment Phase: Acute Treatment Number: 23 Interval history: Patient reports depression continues to improve..Reports feeling in a fog and out of it. Took 30 mg of atarax with 500 mg of [...] 14 on 03/29/23 OFELIA-7= 19 on 02/25/23 Anisaini: 08/31 - completed 02/28/23 Patient reports improvement [...] standard protocol. Patient received TMS using a Laguo device according to the following protocol: Treatment [...] target parameter settings (Please see the TMS dialysis chief equipment technician note for moredetail.). Monitor the patient's tolerance of TMS. Minimize and manage TMS side-effects. Monitor the patient's therapeutic response to TMS. terminal makeup operator Complete acute TMS series, as planned. Achieve at least a 50% reduction in the patient's depressive symptoms, as measured by a research-validated depression screen (PHQ-9, QIDS-SR). Next treatment date: 05/13/23 2:00 PM TMS MD was on-site and immediately available during the duration of today's treatment. Leigh Ann Mcdonough RN TMS TREATMENT NOTE Aziza Tamez received Transcranial Magnetic Stimulation (TMS) The primary diagnosis is: MDD Recurrent w/o Psychotic Features (F33.2) Treatment Phase: Acute Treatment Number: 23 Interval history: Patient reports depression continues to improve. Feeling better today, no reportsof headache. 1 HEARING AID TO BE REMOVED PRIOR [...] standard protocol. Patient received TMS using a Laguo device according to the following protocol: Treatment [...] target parameter settings (Please see the TMS dialysis chief equipment technician note for moredetail.). Monitor the patient's tolerance of TMS. Minimize and manage TMS side-effects. Monitor the patient's therapeutic response to TMS. [facility] Complete acute TMS series, as planned. Achieve at least a 50% reduction in the patient's depressive symptoms, as measured by a research-validated depression screen (PHQ-9, QIDS-SR). Next treatment date: 05/16/23 2:00 PM TMS MD was on-site and immediately available during the duration of today's treatment. Leigh Ann Mcdonough RN documented in this encounter Plan of Treatment Not on file documented as of this encounter Visit Diagnoses Diagnosis Severe episode of recurrent major depressive disorder, without psychotic features documented in this encounter Care Teams E Commerce Retailer Relationship Specialty Start Date End Date Madhavi Smith APRN [address] [place] [address] PCP - General Family Medicine 12/14/21 documented as of this encounter
--- OUTSIDE RECORDS SUMMARY | 2024-04-12 11:16 | XMS_ITS | Encounter Summary ---
[place] [address] Care Team Providers Care Product Designer Name Role Phone Madhavi Smith APRN Primary Care Provider [phone] Encounter Details Date Type Department Care Team (Latest Contact Info) Description 03/31/2023 Travel Social History Tobacco Use Types Packs/Day [...] on filedocumented in this encounter Care Teams Product Designer Relationship Specialty Start Date End Date Madhavi Smith APRN [address] [place] [address] PCP - General Family Medicine 12/14/21 documented as of this encounter
--- OUTSIDE RECORDS SUMMARY | 2024-04-12 11:16 | XMS_ITS | Encounter Summary ---
Author Organization [facility] Address [facility] [place] [address] Care Team Providers Care Workflow Developer Name Role Phone Luis Madhavi JARVIS Primary Care Provider [phone] Encounter Details Date Type Department Care Team (Latest Contact Info) Description 04/04/2023 2:00 PM EDT Procedure visit Psychiatry [place] [phone] Mone Lieberman MD [facility] [place] [address] Severe major depression without psychotic features Social History Tobacco Use [...] this encounter Progress Notes * Leigh Ann Mcdonough, RN - 04/04/2023 2:00 PM EDT Images from the original note were not included. TMS TREATMENT NOTE Aziza Tamez received Transcranial Magnetic Stimulation (TMS) The primary diagnosis is: MDD Recurrent w/o Psychotic Features (F33.2) Treatment Phase: Acute Treatment Number: 5 Interval history: none. This tx session was observed by this pt's sister. 1 HEARING AID TO BE REMOVED PRIOR TO TMS This pt made mentioned of no med changes and stated she continues to take CalmEz lavender herb two QAM and ativan . PRE-TMS BASELINE Questionnaire Scores (prior to starting on 03/29/23- ): QIDS-SR = 22 on 02/25/23 and 24 on 03/29/23 PHQ-9 = 25 on 02/25/23 and 14 on 03/29/23 OFELIA-7= 19 on 02/25/23 Zanarini: 08/31 - completed 02/28/23 Patient reports improvement during current course of TMS: No Patient reports TMS side effects since the last TMS treatment: Headache- 12/29 all over headache --> took naproxen & hctz--> + effect. Patient reports changes in overall health since last TMS treatment: No Patient reports changes in medications since last TMS treatment: No PHQ9 Questionnaires Data (Clinic and Pt Entered): last 4 values of depression scores 02/25/2023 4:32 PM 03/29/2023 1:40 PM PHQ-9 Score via Pt Questionnaire PHQ - 9 Score 25 (Severe Depression) 24 (Severe Depression) 09/30/2015 12:00 AM 10/16/2015 12:00 AM 02/25/2023 4:32 PM 03/29/2023 1:40 PM PHQ-9: Scores Only Post 12/20/22 Conversion PHQ-9 Score 16 (Moderately Severe Depression) 4 (Minimal Depression) 25 (Severe Depression) 24 (Severe Depression) 02/25/2023 4:36 PM 03/29/2023 1:42 PM qids score - last 4 scores Total QIDS-SR Score 22 (Very Severe) 14 (Moderate) Timeout was performed, in which the patient's name//MRN, and the treatment protocol, were confirmed. The patient's treatment cap was fitted and the patient was seated in the treatment chair, per standard protocol. Patient received TMS using a [employer] device according to the following protocol: Treatment side: Left Treatment location: DLPFC Motor threshold (MT) performed today: No Patient MT: 55 % of amplitude Treatment level (Max %MT achieved): 120%- reported 3/10 discomfort. The tx intensity was increased one train at a time to 120 %. Parameter Settings: Waveform Hz Train Pulses # Trains Inter-train Interval (sec) Pulse Total Total Time (min) Theta Burst 5 10 20 8 600 3.17 TMS side effects reported by patient: Facial twitching feel dizzy/ lightheaded s/p tx completion- was encouraged to take slow deep breaths and was given spray of lavender hand metal spraying machine operator with good effect. Complications: None Changes/recommendations for next treatment: Continue current protocol- recommendation for 04/01/23 (F) and 04/04/23 (M) Start at 80 % of MT aincrease tx intensity one train at a time to 120 % as tolerated by pt. Goals of care: Short term: Provide TMS treatment at the target parameter settings (Please see the TMS indoor plant technician note for moredetail.). Monitor the patient's tolerance of TMS. Minimize and manage TMS side-effects. Monitor the patient's therapeutic response to TMS. detention Complete acute TMS series, as planned. Achieve at least a 50% reduction in the patient's depressive symptoms, as measured by a research-validated depression screen (PHQ-9, QIDS-SR). Next treatment date: 04/05/2023 2:00 PM TMS MD was on-site and immediately available during the duration of today's treatment. Leigh Ann Mcdonough, MAHI documented in this encounter Plan of Treatment Not on file documented as of this encounter Visit Diagnoses Diagnosis Severe major depression without psychotic features Major depressive disorder, single episode, severe, without mention of psychotic behavior documented in this encounter Care Teams Workflow Developer Relationship Specialty Start Date End Date Madhavi Smith APRN [address] [place] [address] PCP - General Family Medicine 12/14/21 documented as of this encounter
--- OUTSIDE RECORDS SUMMARY | 2024-04-12 11:16 | XMS_ITS | Encounter Summary ---
[place] [address] Care Team Providers Care Employment Services Director Name Role Phone Madhavi Smith APRN Primary Care Provider [phone] Encounter Details Date Type Department Care Team (Late st Contact Info) Description 04/11/2023 Telephone Psychiatry [place] [phone] Livia Song Social History Tobacco Use Types Packs/Day Years [...] on filedocumented in this encounter Care Teams Employment Services Director Relationship Specialty Start Date End Date Madhavi Smith APRN [address] [place] [address] PCP - General Family Medicine 12/14/21 documented as of this encounter
--- OUTSIDE RECORDS SUMMARY | 2024-04-12 11:16 | XMS_ITS | Encounter Summary ---
[place] [address] Care Team Providers Care Chargemaster Analyst Name Role Phone Madhavi Smith APRN Primary Care Provider Encounter Details Date Type Department Care Team (Latest Contact Info) Description 05/18/2023 Travel Social History Tobacco Use Types Packs/Day [...] on filedocumented in this encounter Care Teams Chargemaster Analyst Relationship Specialty Start Date End Date Madhavi Smith APRN [address] [place] [address] PCP - General Family Medicine 12/14/21 documented as of this encounter
--- OUTSIDE RECORDS SUMMARY | 2024-04-12 11:16 | XMS_ITS | Encounter Summary ---
Author Organization [facility] [place] [address] Care Team Providers Care Tree Wrapper Name Role Phone Madhavi Smith APRN Primary Care Provider [phone] Reason for Visit * Surgical (Routine) - Canceled Specialty Diagnoses / Procedures Referred By Contac t Referred To Contact Psychiatry Diagnoses Severe major depression without psychotic features Procedures Transcranial Magnetic Stimulation Giuseppe Dejesus MD [facility] [place] [address] [facility] [place] [address] Referral ID Status Reason Start Date Expiration Date V isits Requested Visits Authorized [id number] Canceled Consult, Test & Treat 02/28/2023 02/28/2024 36 36 Encounter Details Date Type Department Care Team (Latest Contact Info) Description 04/13/2023 2:00 PM EDT Procedure visit Psychiatry and [place] [address] Rajan Abdalla [facility] [address] Severe episode of recurrent major depressive disorder, [...] Notes * Leigh Ann Mcdonough, RN - 04/13/2023 2:00 PM EDT Images from the original note were not included. TMS TREATMENT NOTE Aziza Tamez received Transcranial Magnetic Stimulation (TMS) The primary diagnosis is: MDD Recurrent w/o Psychotic Features (F33.2) Treatment Phase: Acute Treatment Number: 12 Interval history: I am more aware of things now. Pleasant, noticing an improvement. 1 HEARING AID TO BE REMOVED PRIOR [...] standard protocol. Patient received TMS using a [employer] device according to the following protocol: Treatment [...] target parameter settings (Please see the TMS technical support technician note for moredetail.). Monitor the patient's tolerance of TMS. Minimize and manage TMS side-effects. Monitor the patient's therapeutic response to TMS. longterm Complete acute TMS series, as planned. Achieve at least a 50% reduction in the patient's depressive symptoms, as measured by a research-validated depression screen (PHQ-9, QIDS-SR). Next treatment date: 04/14/23 2:00 PM TMS MD was on-site and immediately available during the duration of today's treatment. Leigh Ann Mcdonough, MAHI documented in this encounter Plan of Treatment Not on file documented as of this encounter Visit Diagnoses Diagnosis Severe episode of recurrent major depressive disorder, without psychotic features documented in this encounter Care Teams Tree Wrapper Relationship Specialty Start Date End Date Madhaiv Smith APRN [address] [place] [address] PCP - General Family Medicine 12/14/21 documented as of this encounter
--- OUTSIDE RECORDS SUMMARY | 2024-04-12 11:16 | XMS_ITS | Encounter Summary ---
Author Organization [facility] Address [facility] [place] [address] Care Team Providers Care Tile Fitter Name Role Phone Luis Madhavi JARVIS Primary Care Provider [phone] Reason for Visit * Surgical (Routine) - Canceled Specialty Diagnoses / Procedures Referred By Contac t Referred To Contact Psychiatry Diagnoses Severe major depression without psychotic features Procedures Transcranial Magnetic Stimulation Giuseppe Dejesus MD [facility] [place] [address] [facility] [place] [address] Referral ID Status Reason Start Date Expiration Date V isits Requested Visits Authorized [id number] Canceled Consult, Test & Treat 02/28/2023 02/28/2024 36 36 Encounter Details Date Type Department Care Team (Latest Contact Info) Description 04/07/2023 2:00 PM EDT Procedure visit Psychiatry [place] [address] Janes Huff MD [facility] [address] Severe recurrent major depression without psychotic features Social History [...] Progress Notes * Ilan Olivarez, RN - 04/07/2023 2:00 PM EDT Images from the original note were not included. TMS TREATMENT NOTE Aziza Tamez received Transcranial Magnetic Stimulation (TMS) The primary diagnosis is: MDD Recurrent w/o Psychotic Features (F33.2) Treatment Phase: Acute Treatment Number: 8 Interval history:. Pleasant, feeling a little better. reports more involved in everyday life 1 HEARING AID TO BE REMOVED PRIOR [...] reports improvement during current course of TMS: Patient and state there has been a subtle improvement. She is beginning to express mild interest and seems more involved in life. Patient reports TMS side effects since the last TMS treatment: Headache- 5/10 feels like a sinus headache.Took advil a couple of hours before treatment. More dizziness yesterday Patient reports changes in overall health since last TMS treatment: No Patient reports changes in medications since last TMS treatment: No PHQ9 Questionnaires Data (Clinic and Pt Entered): last 4 values of depression scores 02/25/2023 4:32 PM 03/29/2023 1:40 PM 04/06/2023 1:46 PM PHQ-9 Score via Pt Questionnaire PHQ - 9 Score 25 (Severe Depression) 24 (Severe Depression) 20 (Severe Depression) 10/16/2015 12:00 AM 02/25/2023 4:32 PM 03/29/2023 1:40 PM 04/06/2023 1:46 PM PHQ-9: Scores Only Post 12/20/22 Conversion PHQ-9 Score 4 (Minimal Depression) 25 (Severe Depression) 24 (Severe Depression) 20 (Severe Depression) 02/25/2023 4:36 PM 03/29/2023 1:42 PM 04/06/2023 1:50 PM qids score - last 4 scores Total QIDS-SR Score 22 (Very Severe) 14 (Moderate) 19 (Severe) Timeout was performed, in which the patient's name//MRN, and the treatment protocol, were confirmed. The patient's treatment cap was fitted and the patient was seated in the treatment chair, per standard protocol. Patient received TMS using a [employer] device according to the following protocol: Treatment [...] for next treatment: Continue current protocol- recommendation pt likes to start at 110% of MT aincrease tx intensity one train at a time to 120 % as tolerated by pt. Goals of care: Short term: Provide TMS treatment at the target parameter settings (Please see the TMS hot cell technician note for moredetail.). Monitor the patient's tolerance of TMS. Minimize and manage TMS side-effects. Monitor the patient's therapeutic response to TMS. MCFP Complete acute TMS series, as planned. Achieve at least a 50% reduction in the patient's depressive symptoms, as measured by a research-validated depression screen (PHQ-9, QIDS-SR). Next treatment date: 04/08/23 2:00 PM TMS MD was on-site and immediately available during the duration of today's treatment. ILAN OLIVAREZ RN documented in this encounter Plan of Treatment Not on file documented as of this encounter Visit Diagnoses Diagnosis Severe recurrent major depression without psychotic features Major depressive disorder, recurrent episode, severe, without mention of psychotic behavior documented in this encounter Care Teams Tile Fitter Relationship Specialty Start Date End Date Madhavi Smith APRN [address] [place] [address] PCP - General Family Medicine 12/14/21 documented as of this encounter
--- OUTSIDE RECORDS SUMMARY | 2024-04-12 11:16 | XMS_ITS | Encounter Summary ---
[place] [address] Care Team Providers Care Paper Guillotine Operator Name Role Phone Madhavi Smith APRN Primary Care Provider [phone] Encounter Details Date Type Department Care Team (Latest Contact Info) Description 04/21/2023 Travel Social History Tobacco Use Types Packs/Day [...] on filedocumented in this encounter Care Teams Paper Guillotine Operator Relationship Specialty Start Date End Date Madhavi Smith APRN [address] [place] [address] PCP - General Family Medicine 12/14/21 documented as of this encounter
--- OUTSIDE RECORDS SUMMARY | 2024-04-12 11:16 | XMS_ITS | Encounter Summary ---
Author Organization [facility] Address [facility] [place] [address] Care Team Providers Care Senior Graduate Advisor Name Role Phone Madhavi Smith APRN Primary Care Provider [phone] Reason for Visit * Surgical (Routine) - Canceled Specialty Diagnoses / Procedures Referred By Contac t Referred To Contact Psychiatry Diagnoses Severe major depression without psychotic features Procedures Transcranial Magnetic Stimulation Giuseppe Dejesus MD [facility] [place] [address] [facility] [place] [address] Referral ID Status Reason Start Date Expiration Date V isits Requested Visits Authorized [id number] Canceled Consult, Test & Treat 02/28/2023 02/28/2024 36 36 Encounter Details Date Type Department Care Team (Latest Contact Info) Description 05/19/2023 2:00 PM EDT Procedure visit Psychiatry [place] [address] Janes Huff MD [facility] [place] [address] Severe recurrent major depression without [...] as of this encounter Progress Notes * Orquidea Vargas S - 05/19/2023 2:00 PM EDT Images from the original note were not included. TMS TREATMENT NOTE Aziza Tamez received Transcranial Magnetic Stimulation (TMS) The primary diagnosis is: MDD Recurrent w/o Psychotic Features (F33.2) Treatment Phase: Acute Treatment Number: 27 Interval history: Patient reports depression has improved with TMS treatment overall, no improvement noted. 1 HEARING AID TO BE REMOVED PRIOR [...] side effects since the last TMS treatment: Mild to moderate headache and actualpain/aching to the touch on the left side of her head. Took Advil, but that did not help. Laid down for a few hours and it eventually subsided. Patient reports changes in overall health since last TMS treatment: Very tired. Patient reports changes in medications since last TMS treatment: Took 35mg of Atarax this am [id number]. PHQ9 Questionnaires Data (Clinic and Pt Entered): last 4 values of depression scores 04/13/2023 1:31 PM 04/21/2023 2:00 PM 05/09/2023 1:50 PM 05/16/2023 1:42 PM PHQ-9 Score via Pt Questionnaire PHQ - 9 Score 14 (Moderate Depression) 9 (Mild Depression) 7 (Mild Depression) 6 (Mild Depression) 04/13/2023 1:31 PM 04/21/2023 2:00 PM 05/09/2023 1:50 PM 05/16/2023 1:42 PM PHQ-9: Scores Only Post 12/20/22 Conversion PHQ-9 Score 14 (Moderate Depression) 9 (Mild Depression) 7 (Mild Depression) 6 (Mild Depression) 04/21/2023 2:02 PM 05/05/2023 4:09 PM 05/09/2023 1:52 PM 05/16/2023 1:45 PM qids score - last 4 scores Total QIDS-SR Score 12 (Moderate) 7 (Mild) 10 (Mild) 10 (Mild) Timeout was performed, in which the patient's name//MRN, and the treatment protocol, were confirmed. The patient's treatment cap was fitted and the patient was seated in the treatment chair, per standard protocol. Patient received TMS using a [employer] device according to the following protocol: Treatment side: Left Treatment location: DLPFC Motor threshold (MT) performed today: No Patient MT: 55 % of amplitude Treatment level (Max %MT achieved): 120% Parameter Settings: Waveform Hz Train Pulses # Trains Inter-train Interval (sec) Pulse Total Total Time (min) Theta Burst 5 10 20 8 600 3.17 TMS side effects reported by patient: None Complications: None Changes/recommendations for next treatment: Continue current protocol- Goals of care: Short term: Provide TMS treatment at the target parameter settings (Please see the TMS solid waste landfill technician note for moredetail.). Monitor the patient's tolerance of TMS. Minimize and manage TMS side-effects. Monitor the patient's therapeutic response to TMS. lobsterman Complete acute TMS series, as planned. Achieve at least a 50% reduction in the patient's depressive symptoms, as measured by a research-validated depression screen (PHQ-9, QIDS-SR). Next treatment date: 05/20/23 2:00 PM TMS MD was on-site and immediately available during the duration of today's treatment. Orquidea Vargas documented in this encounter Plan of Treatment Not on file documented as of this encounter Visit Diagnoses Diagnosis Severe recurrent major depression without psychotic features Major depressive disorder, recurrent episode, severe, without mention of psychotic behavior documented in this encounter Care Teams Senior Graduate Advisor Relationship Specialty Start Date End Date Madhavi Smith APRN [address] [place] [address] PCP - General Family Medicine 12/14/21 documented as of this encounter
--- OUTSIDE RECORDS SUMMARY | 2024-04-12 11:16 | XMS_ITS | Encounter Summary ---
Author Organization [facility] Address [facility] [address] Care Team Providers Care Machine Operations Supervisor Name Role Phone Luis Madhavi JARVIS Primary Care Provider [phone] Reason for Visit * Surgical (Routine) - Canceled Specialty Diagnoses / Procedures Referred By Contac t Referred To Contact Psychiatry Diagnoses Severe major depression without psychotic features Procedures Transcranial Magnetic Stimulation Giuseppe Dejesus MD [facility] [place] [address] [facility] [place] [address] Referral ID Status Reason Start Date Expiration Date V isits Requested Visits Authorized [id number] Canceled Consult, Test & Treat 02/28/2023 02/28/2024 36 36 Encounter Details Date Type Department Care Team (Latest Contact Info) Description 05/26/2023 2:00 PM EDT Procedure visit Psychiatry [place] [address] Janes Huff MD [facility] [place] [address] Severe recurrent major depression without [...] Progress Notes * Orquidea Vargas S - 05/26/2023 2:00 PM EDT TMS TREATMENT NOTE Aziza Tamez received Transcranial Magnetic Stimulation (TMS) The primary diagnosis is: MDD Recurrent w/o Psychotic Features (F33.2) Treatment Phase: Acute Treatment Number: 32 Interval history: Patient reports depression has improved with TMS treatment overall. 1 HEARING AID TO BE REMOVED PRIOR [...] side effects since the last TMS treatment: Got a mild migraine on the ride home. Did not take any medication for this. Laid down and slept. Headache was gone this morning. This morning she took 35mg Atarax around 11:30am for anxiety. This helped somewhat. Patient reports changes in overall health since last TMS treatment: Mild sinus pressure. Patient reports changes in medications since last TMS treatment: No PHQ9 Questionnaires Data (Clinic and Pt Entered): last 4 values of depression scores 04/21/2023 2:00 PM 05/09/2023 1:50 PM 05/16/2023 1:42 PM 05/24/2023 1:51 PM PHQ-9 Score via Pt Questionnaire PHQ - 9 Score 9 (Mild Depression) 7 (Mild Depression) 6 (Mild Depression) 6 (Mild Depression) 04/21/2023 2:00 PM 05/09/2023 1:50 PM 05/16/2023 1:42 PM 05/24/2023 1:51 PM PHQ-9: Scores Only Post 12/20/22 Conversion PHQ-9 Score 9 (Mild Depression) 7 (Mild Depression) 6 (Mild Depression) 6 (Mild Depression) 05/05/2023 4:09 PM 05/09/2023 1:52 PM 05/16/2023 1:45 PM 05/24/2023 1:52 PM qids score - last 4 scores Total QIDS-SR Score 7 (Mild) 10 (Mild) 10 (Mild) 8 (Mild) Timeout was performed, in which the patient's name//MRN, and the treatment protocol, were confirmed. The patient's treatment cap was fitted and the patient was seated in the treatment chair, per standard protocol. Patient received TMS using a [employer] device according to the following protocol: Treatment [...] target parameter settings (Please see the TMS lab animal technician note for moredetail.). Monitor the patient's tolerance of TMS. Minimize and manage TMS side-effects. Monitor the patient's therapeutic response to TMS. half-way Complete acute TMS series, as planned. Achieve at least a 50% reduction in the patient's depressive symptoms, as measured by a research-validated depression screen (PHQ-9, QIDS-SR). Next treatment date: 05/27/23 2:00 PM TMS MD was on-site and immediately available during the duration of today's treatment. Orquidea Vargas documented in this encounter Plan of Treatment Not on file documented as of this encounter Visit Diagnoses Diagnosis Severe recurrent major depression without psychotic features Major depressive disorder, recurrent episode, severe, without mention of psychotic behavior documented in this encounter Care Teams Machine Operations Supervisor Relationship Specialty Start Date End Date Madhavi Smith APRN [address] [place] [address] PCP - General Family Medicine 12/14/21 documented as of this encounter
--- OUTSIDE RECORDS SUMMARY | 2024-04-12 11:16 | XMS_ITS | Encounter Summary ---
Author Organization [facility] Address [facility] [place] [address] Care Team Providers Care Liquid Chlorine Operator Name Role Phone Luis Madhavi JARVIS Primary Care Provider [phone] Encounter Details Date Type Department Care Team (Latest Contact Info) Description 04/05/2023 2:00 PM EDT Procedure visit Psychiatry [place] [id number] Mone Lieberman MD [facility] [place] [address] Severe major depression without psychotic features Social [...] Notes * Leigh Ann Mcdonough, RN - 04/05/2023 2:00 PM EDT Images from the original note were not included. TMS TREATMENT NOTE Aziza Tamez received Transcranial Magnetic Stimulation (TMS) The primary diagnosis is: MDD Recurrent w/o Psychotic Features (F33.2) Treatment Phase: Acute Treatment Number: 6 Interval history: none. Pleasant, no reported changes as of 6th tx. 1 HEARING AID TO BE REMOVED PRIOR [...] standard protocol. Patient received TMS using a [employer] device according to the following protocol: Treatment [...] protocol- recommendation pt likes to start at 100% of MT aincrease tx intensity one train at a time to 120 % as tolerated by pt. Goals of care: Short term: Provide TMS treatment at the target parameter settings (Please see the TMS emergency vehicle technician note for moredetail.). Monitor the patient's tolerance of TMS. Minimize and manage TMS side-effects. Monitor the patient's therapeutic response to TMS. joint terminal attack controller Complete acute TMS series, as planned. Achieve at least a 50% reduction in the patient's depressive symptoms, as measured by a research-validated depression screen (PHQ-9, QIDS-SR). Next treatment date: 04/06/2023 2:00 PM TMS MD was on-site and immediately available during the duration of today's treatment. Leigh Ann Mcdonough RN documented in this encounter Plan of Treatment Not on file documented as of this encounter Visit Diagnoses Diagnosis Severe major depression without psychotic features Major depressive disorder, single episode, severe, without mention of psychotic behavior documented in this encounter Care Teams Liquid Chlorine Operator Relationship Specialty Start Date End Date Madhavi Smith APRN [address] [place] [address] PCP - General Family Medicine 12/14/21 documented as of this encounter
--- OUTSIDE RECORDS SUMMARY | 2024-04-12 11:16 | XMS_ITS | Encounter Summary ---
Author Organization [facility] Address [facility] [place] [address] Care Team Providers Care Payroll Representative Name Role Phone Madhavi Smith APRN Primary Care Provider Reason for Visit * Surgical (Routine) - Canceled Specialty Diagnoses / Procedures Referred By Contac t Referred To Contact Psychiatry Diagnoses Severe major depression without psychotic features Procedures Transcranial Magnetic Stimulation Giuseppe Dejesus MD [facility] [place] [address] [facility] [place] [address] Referral ID Status Reason Start Date Expiration Date V isits Requested Visits Authorized [id number] Canceled Consult, Test & Treat 02/28/2023 02/28/2024 36 36 Encounter Details Date Type Department Care Team (Latest Contact Info) Description 06/06/2023 4:20 PM EDT Procedure visit Psychiatry [place] [address] Mone Lieberman MD [facility] PSYCHIATRY DEPT [place] [id number] Severe episode of recurrent major depressive disorder, [...] as of this encounter Progress Notes * Jazmyn Reyes, RN - 06/06/2023 4:20 PM EDTSummary: Treatment # 36 TMS TREATMENT NOTE Aziza Tamez received Transcranial Magnetic Stimulation (TMS) The primary diagnosis is: MDD Recurrent w/o Psychotic Features (F33.2) Treatment Phase: Acute Treatment Number: 36 Interval history: Aziza reports feeling good. She says her depression is way down. However her anxiety is present and at times quite high. She says that over the summer several traumatic events in a short span of time occurred and she believes she has a bit of PTSD. She is excited to say that thistuesday she will be beginning therapy to deal with these issues. 1 HEARING AID TO BE REMOVED PRIOR [...] side effects since the last TMS treatment: None Patient reports changes in overall health since last TMS treatment:No Patient reports changes in medications since last TMS treatment: No PHQ9 Questionnaires Data (Clinic and Pt Entered): last 4 values of depression scores 05/16/2023 1:42 PM 05/24/2023 1:51 PM 05/31/2023 4:10 PM 06/06/2023 3:50 PM PHQ-9 Score via Pt Questionnaire PHQ - 9 Score 6 (Mild Depression) 6 (Mild Depression) 4 (Minimal Depression) 4 (Minimal Depression) 05/16/2023 1:42 PM 05/24/2023 1:51 PM 05/31/2023 4:10 PM 06/06/2023 3:50 PM PHQ-9: Scores Only Post 12/20/22 Conversion PHQ-9 Score 6 (Mild Depression) 6 (Mild Depression) 4 (Minimal Depression) 4 (Minimal Depression) 05/16/2023 1:45 PM 05/24/2023 1:52 PM 05/31/2023 4:12 PM 06/06/2023 3:53 PM qids score - last 4 scores Total QIDS-SR Score 10 (Mild) 8 (Mild) 8 (Mild) 7 (Mild) Timeout was performed, in which the patient's name//MRN, and the treatment protocol, were confirmed. The patient's treatment cap was fitted and the patient was seated in the treatment chair, per standard protocol. Patient received TMS using a [employer] device according to the following protocol: Treatment [...] target parameter settings (Please see the TMS implementation technician note for moredetail.). Monitor the patient's tolerance of TMS. Minimize and manage TMS side-effects. Monitor the patient's therapeutic response to TMS. USP Complete acute TMS series, as planned. Achieve at least a 50% reduction in the patient's depressive symptoms, as measured by a research-validated depression screen (PHQ-9, QIDS-SR). Next treatment date: This was patient's last treatment TMS MD was on-site and immediately available during the duration of today's treatment. Jazmyn Reyes RN * Orquidea Vargas - 06/06/2023 4:20 PM EDT TMS TREATMENT NOTE Aziza Tamez received Transcranial Magnetic Stimulation (TMS) The primary diagnosis is: MDD Recurrent w/o Psychotic Features (F33.2) Treatment Phase: Acute Treatment Number: 36 Interval history: Aziza reports feeling good. She says her depression is way down. However her anxiety is present and at times quite high. She says that over the summer several traumatic events in a short span of time occurred and she believes she has a bit of PTSD. She is excited to say that thiscoming Tuesday she will be beginning therapy to deal with these issues. 1 HEARING AID TO BE REMOVED PRIOR [...] side effects since the last TMS treatment: None Patient reports changes in overall health since last TMS treatment:No Patient reports changes in medications since last TMS treatment: No PHQ9 Questionnaires Data (Clinic and Pt Entered): last 4 values of depression scores 05/16/2023 1:42 PM 05/24/2023 1:51 PM 05/31/2023 4:10 PM 06/06/2023 3:50 PM PHQ-9 Score via Pt Questionnaire PHQ - 9 Score 6 (Mild Depression) 6 (Mild Depression) 4 (Minimal Depression) 4 (Minimal Depression) 05/16/2023 1:42 PM 05/24/2023 1:51 PM 05/31/2023 4:10 PM 06/06/2023 3:50 PM PHQ-9: Scores Only Post 12/20/22 Conversion PHQ-9 Score 6 (Mild Depression) 6 (Mild Depression) 4 (Minimal Depression) 4 (Minimal Depression) 05/16/2023 1:45 PM 05/24/2023 1:52 PM 05/31/2023 4:12 PM 06/06/2023 3:53 PM qids score - last 4 scores Total QIDS-SR Score 10 (Mild) 8 (Mild) 8 (Mild) 7 (Mild) Timeout was performed, in which the patient's name//MRN, and the treatment protocol, were confirmed. The patient's treatment cap was fitted and the patient was seated in the treatment chair, per standard protocol. Patient received TMS using a [employer] device according to the following protocol: Treatment [...] target parameter settings (Please see the TMS implementation technician note for moredetail.). Monitor the patient's tolerance of TMS. Minimize and manage TMS side-effects. Monitor the patient's therapeutic response to TMS. termite control servicer Complete acute TMS series, as planned. Achieve at least a 50% reduction in the patient's depressive symptoms, as measured by a research-validated depression screen (PHQ-9, QIDS-SR). Next treatment date: This was patient's last treatment. Depression score microsoft exchange architect duration of treatment: Tx # Date QIDS PHQ-9 #1 03/29/23 24 14 #36 06/06/23 7 4 70.8% 71.4% TMS MD was on-site and immediately available during the duration of today's treatment. Orquidea Vargas documented in this encounter Plan of Treatment Not on file documented as of this encounter Visit Diagnoses Diagnosis Severe episode of recurrent major depressive disorder, without psychotic features documented in this encounter Care Teams Payroll Representative Relationship Specialty Start Date End Date Madhavi Smith APRN [address] [place] [address] PCP - General Family Medicine 12/14/21 documented as of this encounter
--- OUTSIDE RECORDS SUMMARY | 2024-04-12 11:16 | XMS_ITS | Encounter Summary ---
Author Organization [facility] Address [facility] [place] [address] Care Team Providers Care English Adjunct Faculty Name Role Phone Luis Madhavi JARVIS Primary Care Provider [phone] Encounter Details Date Type Department Care Team (Latest Contact Info) Description 05/12/2023 2:00 PM EDT Procedure visit Psychiatry and [place] [id number] Mone Lieberman MD [facility] [place] [address] Severe episode of recurrent major depressive disorder, [...] Notes * Leigh Ann Mcdonough RN - 05/12/2023 2:00 PM EDT Images from the original note were not included. TMS TREATMENT NOTE Aziza Tamez received Transcranial Magnetic Stimulation (TMS) The primary diagnosis is: MDD Recurrent w/o Psychotic Features (F33.2) Treatment Phase: Acute Treatment Number: 22 Interval history: Patient reports depression continues to [...] standard protocol. Patient received TMS using a [employer] device according to the following protocol: Treatment [...] target parameter settings (Please see the TMS photonics technician note for moredetail.). Monitor the patient's tolerance of TMS. Minimize and manage TMS side-effects. Monitor the patient's therapeutic response to TMS. termite exterminator helper Complete acute TMS series, as planned. Achieve [...] features documented in this encounter Care Teams English Adjunct Faculty Relationship Specialty Start Date End Date Madhavi Smith APRN [address] [place] [address] PCP - General Family Medicine 12/14/21 documented as of this encounter
--- OUTSIDE RECORDS SUMMARY | 2024-04-12 11:16 | XMS_ITS | Encounter Summary ---
Author Organization [facility] Address [facility] [place] [address] Care Team Providers Care All Source Intelligence Analyst Name Role Phone Madhavi Smith APRN Primary Care Provider [phone] Reason for Visit * Surgical (Routine) - Canceled Specialty Diagnoses / Procedures Referred By Contac t Referred To Contact Psychiatry Diagnoses Severe major depression without psychotic features Procedures Transcranial Magnetic Stimulation Giuseppe Dejesus MD [facility] [place] [address] [facility] [address] Referral ID Status Reason Start Date Expiration Date V isits Requested Visits Authorized [id number] Canceled Consult, Test & Treat 02/28/2023 02/28/2024 36 36 Encounter Details Date Type Department Care Team (Latest Contact Info) Description 05/31/2023 4:20 PM EDT Procedure visit Psychiatry [place] [address] Janes Huff MD [facility] [place] [address] Severe recurrent major depression without [...] Progress Notes * Orquidea Vargas S - 05/31/2023 4:20 PM EDT TMS TREATMENT NOTE Aziza Tamez received Transcranial Magnetic Stimulation (TMS) The primary diagnosis is: MDD Recurrent w/o Psychotic Features (F33.2) Treatment Phase: Acute Treatment Number: 34 Interval history: Patient reports depression has improved [...] the last TMS treatment: Got a mild sinus headache on the ride home. Took Advil for pain. This made headache manageable. This morning she took 35mg Atarax [id number]:30am for anxiety. This helped. Patient reports changes in overall health since last TMS treatment: Persistent sinus pressure, exacerbated by TMS treatment. Patient reports changes in medications since last [...] standard protocol. Patient received TMS using a [employer] device according to the following protocol: Treatment [...] target parameter settings (Please see the TMS specimen technician note for moredetail.). Monitor the patient's tolerance of TMS. Minimize and manage TMS side-effects. Monitor the patient's therapeutic response to TMS. jail Complete acute TMS series, as planned. Achieve at least a 50% reduction in the patient's depressive symptoms, as measured by a research-validated depression screen (PHQ-9, QIDS-SR). Next treatment date: 06/02/23 4:20 PM TMS MD was on-site and immediately available during the duration of today's treatment. Orquidea Vargas documented in this encounter Plan of Treatment Not on file documented as of this encounter Visit Diagnoses Diagnosis Severe recurrent major depression without psychotic features Major depressive disorder, recurrent episode, severe, without mention of psychotic behavior documented in this encounter Care Teams All Source Intelligence Analyst Relationship Specialty Start Date End Date Madhavi Smith APRN [address] [place] [address] PCP - General Family Medicine 12/14/21 documented as of this encounter
--- OUTSIDE RECORDS SUMMARY | 2024-04-12 11:16 | XMS_ITS | Encounter Summary ---
Author Organization [facility] [place] [place] [place] [address] Care Team Providers Care Supervisor Steel Division Name Role Phone Madhavi Smith APRN Primary Care Provider [phone] Reason for Visit * Surgical (Routine) - Canceled Specialty Diagnoses / Procedures Referred By Contac t Referred To Contact Psychiatry Diagnoses Severe major depression without psychotic features Procedures Transcranial Magnetic Stimulation Giuseppe Dejesus MD [facility] [place] [address] [facility] [place] [address] Referral ID Status Reason Start Date Expiration Date V isits Requested Visits Authorized [id number] Canceled Consult, Test & Treat 02/28/2023 02/28/2024 36 36 Encounter Details Date Type Department Care Team (Latest Contact Info) Description 05/27/2023 2:00 PM EDT Procedure visit Psychiatry and Behavioral [place] [address] Rajan Abdalla [facility] [place] [address] Severe recurrent major depression without psychotic features [...] Progress Notes * Orquidea Vargas S - 05/27/2023 2:00 PM EDT TMS TREATMENT NOTE Aziza Tamez received Transcranial Magnetic Stimulation (TMS) The primary diagnosis is: MDD Recurrent w/o Psychotic Features (F33.2) Treatment Phase: Acute Treatment Number: 33 Interval history: Patient reports depression has improved [...] a mild migraine on the ride home. Doesn't recall what she took for pain. Headache eventually went away last night. This morning she took 35mg Atarax around 9:30am for anxiety. This helped a little bit. Patient reports changes in overall health since [...] 3.17 TMS side effects reported by patient: Left eyebrow twitching Complications: None Changes/recommendations for next treatment: Continue current protocol- Goals of care: Short term: Provide TMS treatment at the target parameter settings (Please see the TMS combination technician note for moredetail.). Monitor the patient's tolerance of TMS. Minimize and manage TMS side-effects. Monitor the patient's therapeutic response to TMS. termite renewal inspector Complete acute TMS series, as planned. Achieve at least a 50% reduction in the patient's depressive symptoms, as measured by a research-validated depression screen (PHQ-9, QIDS-SR). Next treatment date: 05/31/23 4:20 PM TMS MD was on-site and immediately available during the duration of today's treatment. Orquidea Vargas documented in this encounter Plan of Treatment Not on file documented as of this encounter Visit Diagnoses Diagnosis Severe recurrent major depression without psychotic features Major depressive disorder, recurrent episode, severe, without mention of psychotic behavior documented in this encounter Care Teams Supervisor Steel Division Relationship Specialty Start Date End Date Madhavi Smith APRN [address] [place] [address] PCP - General Family Medicine 12/14/21 documented as of this encounter
--- OUTSIDE RECORDS SUMMARY | 2024-04-12 11:16 | XMS_ITS | Encounter Summary ---
[place] [address] Care Team Providers Care Auto Clutch Specialist Name Role Phone Madhavi Smith APRN Primary Care Provider [phone] Encounter Details Date Type Department Care Team (Latest Contact Info) Description 04/15/2023 Travel Social History Tobacco Use Types Packs/Day [...] filedocumented in this encounter Care Teams Auto Clutch Specialist Relationship Specialty Start Date End Date Madhavi Smith APRN [address] [place] [address] PCP - General Family Medicine 12/14/21 documented as of this encounter
--- OUTSIDE RECORDS SUMMARY | 2024-04-12 11:16 | XMS_ITS | Encounter Summary ---
[place] [address] Care Team Providers Care Drafting Clerk Name Role Phone Madhavi Smith APRN Primary Care Provider [phone] Encounter Details Date Type Department Care Team (Latest Contact Info) Description 06/02/2023 Travel Social History Tobacco Use Types Packs/Day [...] on filedocumented in this encounter Care Teams Drafting Clerk Relationship Specialty Start Date End Date Madhavi Smith APRN [address] [place] [address] PCP - General Family Medicine 12/14/21 documented as of this encounter
--- OUTSIDE RECORDS SUMMARY | 2024-04-12 11:16 | XMS_ITS | Encounter Summary ---
Author Organization [facility] [place] [address] Care Team Providers Care Membership Advisor Name Role Phone Madhavi Smith APRN Primary Care Provider [phone] Reason for Visit * Surgical (Routine) - Canceled Specialty Diagnoses / Procedures Referred By Contac t Referred To Contact Psychiatry Diagnoses Severe major depression without psychotic features Procedures Transcranial Magnetic Stimulation Giuseppe Dejesus MD [facility] [place] [address] [facility] [place] [address] Referral ID Status Reason Start Date Expiration Date V isits Requested Visits Authorized [id number] Canceled Consult, Test & Treat 02/28/2023 02/28/2024 36 36 Encounter Details Date Type Department Care Team (Latest Contact Info) Description 06/02/2023 4:20 PM EDT Procedure visit Psychiatry [place] [address] Rajan Abdalla [facility] [address] Severe recurrent major depression without psychotic features [...] Progress Notes * Orquidea Vargas S - 06/02/2023 4:20 PM EDT TMS TREATMENT NOTE Aziza Tamez received Transcranial Magnetic Stimulation (TMS) The primary diagnosis is: MDD Recurrent w/o Psychotic Features (F33.2) Treatment Phase: Acute Treatment Number: 35 Interval history: Patient reports depression has improved [...] since the last TMS treatment: Got a migraine headache on the ride home and that night. Took naproxen and atarax. This made the pain manageable. Patient reports changes in overall health since last TMS treatment:No Patient reports changes in medications since last TMS treatment: No PHQ9 Questionnaires Data (Clinic and Pt Entered): last 4 values of depression scores 05/09/2023 1:50 PM 05/16/2023 1:42 PM 05/24/2023 1:51 PM 05/31/2023 4:10 PM PHQ-9 Score via Pt Questionnaire PHQ - 9 Score 7 (Mild Depression) 6 (Mild Depression) 6 (Mild Depression) 4 (Minimal Depression) 05/09/2023 1:50 PM 05/16/2023 1:42 PM 05/24/2023 1:51 PM 05/31/2023 4:10 PM PHQ-9: Scores Only Post 12/20/22 Conversion PHQ-9 Score 7 (Mild Depression) 6 (Mild Depression) 6 (Mild Depression) 4 (Minimal Depression) 05/09/2023 1:52 PM 05/16/2023 1:45 PM 05/24/2023 1:52 PM 05/31/2023 4:12 PM qids score - last 4 scores Total QIDS-SR Score 10 (Mild) 10 (Mild) 8 (Mild) 8 (Mild) Timeout was performed, in which the patient's name//MRN, and the treatment protocol, were confirmed. The patient's treatment cap was fitted and the patient was seated in the treatment chair, per standard protocol. Patient received TMS using a [employer] device according to the following protocol: Treatment [...] target parameter settings (Please see the TMS tv technician note for moredetail.). Monitor the patient's tolerance of TMS. Minimize and manage TMS side-effects. Monitor the patient's therapeutic response to TMS. extermination supervisor Complete acute TMS series, as planned. Achieve at least a 50% reduction in the patient's depressive symptoms, as measured by a research-validated depression screen (PHQ-9, QIDS-SR). Next treatment date: 06/06/23 4:20 PM TMS MD was on-site and immediately available during the duration of today's treatment. Orquidea Vargas documented in this encounter Plan of Treatment Not on file documented as of this encounter Visit Diagnoses Diagnosis Severe recurrent major depression without psychotic features Major depressive disorder, recurrent episode, severe, without mention of psychotic behavior documented in this encounter Care Teams Membership Advisor Relationship Specialty Start Date End Date Madhavi Smith APRN [address] [place] [address] PCP - General Family Medicine 12/14/21 documented as of this encounter
--- OUTSIDE RECORDS SUMMARY | 2024-04-12 11:16 | XMS_ITS | Encounter Summary ---
Author Organization [facility] Address [facility] [place] [address] Care Team Providers Care Biofuels Engineering Manager Name Role Phone Madhavi Smith APRN Primary Care Provider [phone] Reason for Visit * Surgical (Routine) - Canceled Specialty Diagnoses / Procedures Referred By Contac t Referred To Contact Psychiatry Diagnoses Severe major depression without psychotic features Procedures Transcranial Magnetic Stimulation Giuseppe Dejesus MD [facility] [address] [facility] [place] [address] Referral ID Status Reason Start Date Expiration Date V isits Requested Visits Authorized [id number] Canceled Consult, Test & Treat 02/28/2023 02/28/2024 36 36 Encounter Details Date Type Department Care Team (Latest Contact Info) Description 05/16/2023 2:00 PM EDT Procedure visit Psychiatry [place] [address] Mone Lieberman MD [facility] [place] [address] Severe episode of recurrent major [...] Progress Notes * Emily Garza RN - 05/16/2023 2:00 PM EDT Images from the original note were not included. TMS TREATMENT NOTE Aziza Tamez received Transcranial Magnetic Stimulation (TMS) The primary diagnosis is: MDD Recurrent w/o Psychotic Features (F33.2) Treatment Phase: Acute Treatment Number: 24 Interval history: Patient reports depression has improved with TMS treatment overall, no improvement noted from last week treatments. 1 HEARING AID TO BE REMOVED PRIOR [...] 4 values of depression scores Row Labels 04/13/2023 1:31 PM 04/21/2023 2:00 PM 05/09/2023 1:50 PM 05/16/2023 1:42 PM PHQ-9 Score via Pt Questionnaire Section Header. No data exists in this row. PHQ - 9 Score 14 (Moderate Depression) 9 (Mild Depression) 7 (Mild Depression) 6 (Mild Depression) Row Labels 04/13/2023 1:31 PM 04/21/2023 2:00 PM 05/09/2023 1:50 PM 05/16/2023 1:42 PM PHQ-9: Scores Only Post 12/20/22 Conversion Section Header. No data exists in this row. PHQ-9 Score 14 (Moderate Depression) 9 (Mild Depression) 7 (Mild Depression) 6 (Mild Depression) Row Labels 04/21/2023 2:02 PM 05/05/2023 4:09 PM 05/09/2023 1:52 PM 05/16/2023 1:45 PM qids score - last 4 scores Section Header. No data exists in this row. Total QIDS-SR Score 12 (Moderate) 7 (Mild) 10 (Mild) 10 (Mild) Timeout was performed, in which the patient's name//MRN, and the treatment protocol, were confirmed. The patient's treatment cap was fitted and the patient was seated in the treatment chair, per standard protocol. Patient received TMS using a [employer] device according to the following protocol: Treatment [...] target parameter settings (Please see the TMS chief ophthalmic technician note for moredetail.). Monitor the patient's tolerance of TMS. Minimize and manage TMS side-effects. Monitor the patient's therapeutic response to TMS. skilled nursing Complete acute TMS series, as planned. Achieve at least a 50% reduction in the patient's depressive symptoms, as measured by a research-validated depression screen (PHQ-9, QIDS-SR). Next treatment date: 05/17/23 2:00 PM TMS MD was on-site and immediately available during the duration of today's treatment. Emily Garza RN documented in this encounter Plan of Treatment Not on file documented as of this encounter Visit Diagnoses Diagnosis Severe episode of recurrent major depressive disorder, without psychotic features documented in this encounter Care Teams Biofuels Engineering Manager Relationship Specialty Start Date End Date Madhavi Smith APRN [address] [place] [address] PCP - General Family Medicine 12/14/21 documented as of this encounter
--- OUTSIDE RECORDS SUMMARY | 2024-04-12 11:16 | XMS_ITS | Encounter Summary ---
Author Organization [facility] Address [facility] [place] [address] Care Team Providers Care Weapons And Tactics Instructor Name Role Phone Madhavi Smith APRN Primary Care Provider [phone] Reason for Visit * Surgical (Routine) - Canceled Specialty Diagnoses / Procedures Referred By Contac t Referred To Contact Psychiatry Diagnoses Severe major depression without psychotic features Procedures Transcranial Magnetic Stimulation Giuseppe Dejesus MD [facility] [place] [address] [facility] [place] [address] Referral ID Status Reason Start Date Expiration Date V isits Requested Visits Authorized [id number] Canceled Consult, Test & Treat 02/28/2023 02/28/2024 36 36 Encounter Details Date Type Department Care Team (Latest Contact Info) Description 05/23/2023 2:00 PM EDT Procedure visit Psychiatry [place] [address] Mone Lieberman MD [facility] [place] [address] Severe recurrent major depression without [...] Progress Notes * Orquidea Vargas S - 05/23/2023 2:00 PM EDT Images from the original note were not included. 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 No medication taken for relief. Laid down for a bit. Patient reports changes in overall health since last TMS treatment: Mild sinus pressure. Patient reports changes in medications since last TMS treatment: [facility] PHQ9 Questionnaires Data (Clinic and Pt Entered): [...] standard protocol. Patient received TMS using a [employer] device according to the following protocol: Treatment [...] target parameter settings (Please see the TMS gate technician note for moredetail.). Monitor the patient's tolerance of TMS. Minimize and manage TMS side-effects. Monitor the patient's therapeutic response to TMS. halfway Complete acute TMS series, as planned. Achieve at least a 50% reduction in the patient's depressive symptoms, as measured by a research-validated depression screen (PHQ-9, QIDS-SR). Next treatment date: 05/24/23 2:00 PM TMS MD was on-site and immediately available during the duration of today's treatment. Orquidea Vargas documented in this encounter Plan of Treatment Not on file documented as of this encounter Visit Diagnoses Diagnosis Severe recurrent major depression without psychotic features Major depressive disorder, recurrent episode, severe, without mention of psychotic behavior documented in this encounter Care Teams Weapons And Tactics Instructor Relationship Specialty Start Date End Date Madhavi Smith APRN [address] [place] [address] PCP - General Family Medicine 12/14/21 documented as of this encounter
--- OUTSIDE RECORDS SUMMARY | 2024-04-12 11:16 | XMS_ITS | Encounter Summary ---
[place] [address] Care Team Providers Care General Practitioner Name Role Phone Madhavi Smith APRN Primary Care Provider Encounter Details Date Type Department Care Team (Latest Contact Info) Description 05/09/2023 Travel Social History Tobacco Use Types Packs/Day [...] on filedocumented in this encounter Care Teams General Practitioner Relationship Specialty Start Date End Date Madhavi Smith APRN [address] [place] [address] PCP - General Family Medicine 12/14/21 documented as of this encounter
--- OUTSIDE RECORDS SUMMARY | 2024-04-12 11:16 | XMS_ITS | Encounter Summary ---
Author Organization [facility] Address [facility] [place] [address] Care Team Providers Care Psychiatry Physician Name Role Phone Madhavi Smith APRN Primary Care Provider [phone] Reason for Visit * Surgical (Routine) - Canceled Specialty Diagnoses / Procedures Referred By Contac t Referred To Contact Psychiatry Diagnoses Severe major depression without psychotic features Procedures Transcranial Magnetic Stimulation Giuseppe Dejesus MD [facility] [place] [address] [facility] [address] Referral ID Status Reason Start Date Expiration Date V isits Requested Visits Authorized [id number] Canceled Consult, Test & Treat 02/28/2023 02/28/2024 36 36 Encounter Details Date Type Department Care Team (Latest Contact Info) Description 04/21/2023 2:00 PM EDT Procedure visit Psychiatry [place] [address] Janes Huff MD [facility] [place] [address] Severe episode of recurrent major [...] Progress Notes * Emily Garza RN - 04/21/2023 2:00 PM EDT Images from the original note were not included. 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 Spoke with patient and re physician assistant psychiatry discussed with patient about taking hydroxyzine (prescribed by neurologist at for headaches) for anxiety versus ativan. Patient took ativan 2x weekly prior TMS commencement, takes about 4x weekly now. Patient amenable to talking to physician assistant psychiatry to get this written under her care. Patient further amenable to trying physician assistant psychiatry plan, try to take hydroxyzine when she gets anxious, if on reprieve after 45min to an hour, proceed with ativan. 1 HEARING AID TO BE REMOVED PRIOR [...] 4 values of depression scores Row Labels 03/29/2023 1:40 PM 04/06/2023 1:46 PM 04/13/2023 1:31 PM 04/21/2023 2:00 PM PHQ-9 Score via Pt Questionnaire Section Header. No data exists in this row. PHQ - 9 Score 24 (Severe Depression) 20 (Severe Depression) 14 (Moderate Depression) 9 (Mild Depression) Row Labels 03/29/2023 1:40 PM 04/06/2023 1:46 PM 04/13/2023 1:31 PM 04/21/2023 2:00 PM PHQ-9: Scores Only Post 12/20/22 Conversion Section Header. No data exists in this row. PHQ-9 Score 24 (Severe Depression) 20 (Severe Depression) 14 (Moderate Depression) 9 (Mild Depression) Row Labels 03/29/2023 1:42 PM 04/06/2023 1:50 PM 04/13/2023 1:36 PM 04/21/2023 2:02 PM qids score - last 4 scores Section Header. No data exists in this row. Total QIDS-SR Score 14 (Moderate) 19 (Severe) 12 (Moderate) 12 (Moderate) Timeout was performed, in which the patient's name//MRN, and the treatment protocol, were confirmed. The patient's treatment cap was fitted and the patient was seated in the treatment chair, per standard protocol. Patient received TMS using a [employer] device according to the following protocol: Treatment [...] target parameter settings (Please see the TMS studio technician video operator note for moredetail.). Monitor the patient's tolerance of TMS. Minimize and manage TMS side-effects. Monitor the patient's therapeutic response to TMS. ocean transportation intermediary Complete acute TMS series, as planned. Achieve at least a 50% reduction in the patient's depressive symptoms, as measured by a research-validated depression screen (PHQ-9, QIDS-SR). Next treatment date: 04/21/23 2:00 PM TMS MD was on-site and immediately available during the duration of today's treatment. Emily Garza RN documented in this encounter Plan of Treatment Not on file documented as of this encounter Visit Diagnoses Diagnosis Severe episode of recurrent major depressive disorder, without psychotic features documented in this encounter Care Teams Psychiatry Physician Relationship Specialty Start Date End Date Madhavi Smith APRN [address] [place] [address] PCP - General Family Medicine 12/14/21 documented as of this encounter
--- OUTSIDE RECORDS SUMMARY | 2024-04-12 11:16 | XMS_ITS | Encounter Summary ---
[place] [address] Care Team Providers Care Cable Ferry Operator Name Role Phone Madhavi Smith APRN Primary Care Provider [phone] Encounter Details Date Type Department Care Team (Latest Contact Info) Description 03/29/2023 Travel Social History Tobacco Use Types Packs/Day [...] on filedocumented in this encounter Care Teams Cable Ferry Operator Relationship Specialty Start Date End Date Madhavi Smith APRN [address] [place] [address] PCP - General Family Medicine 12/14/21 documented as of this encounter
--- OUTSIDE RECORDS SUMMARY | 2024-04-12 11:16 | XMS_ITS | Encounter Summary ---
[place] [address] Care Team Providers Care Sr. Manager Name Role Phone Madhavi Smith APRN Primary Care Provider [phone] Encounter Details Date Type Department Care Team (Latest Contact Info) Description 04/06/2023 Travel Social History Tobacco Use Types Packs/Day [...] on filedocumented in this encounter Care Teams Sr. Manager Relationship Specialty Start Date End Date Madhavi Smith APRN [address] [place] [address] PCP - General Family Medicine 12/14/21 documented as of this encounter
--- OUTSIDE RECORDS SUMMARY | 2024-04-12 11:16 | XMS_ITS | Encounter Summary ---
[place] [address] Care Team Providers Care Ammonium Nitrate Neutralizer Name Role Phone Madhavi Smith APRN Primary Care Provider [phone] Encounter Details Date Type Department Care Team (Latest Contact Info) Description 05/23/2023 Travel Social History Tobacco Use Types Packs/Day [...] on filedocumented in this encounter Care Teams Ammonium Nitrate Neutralizer Relationship Specialty Start Date End Date Madhavi Smith APRN [address] [place] [address] PCP - General Family Medicine 12/14/21 documented as of this encounter
--- OUTSIDE RECORDS SUMMARY | 2024-04-12 11:16 | XMS_ITS | Encounter Summary ---
Author Organization [facility] Address [facility] [place] [address] Care Team Providers Care System Support Specialist Name Role Phone Madhavi Smith APRN Primary Care Provider [phone] Reason for Visit * Surgical (Routine) - Canceled Specialty Diagnoses / Procedures Referred By Contac t Referred To Contact Psychiatry Diagnoses Severe major depression without psychotic features Procedures Transcranial Magnetic Stimulation Giuseppe Dejesus MD [facility] [place] [address] [facility] [place] [address] Referral ID Status Reason Start Date Expiration Date V isits Requested Visits Authorized [id number] Canceled Consult, Test & Treat 02/28/2023 02/28/2024 36 36 Encounter Details Date Type Department Care Team (Latest Contact Info) Description 04/12/2023 2:00 PM EDT Procedure visit Psychiatry [place] [address] Janes Huff MD [facility] [place] [address] Severe episode of recurrent major [...] of this encounter Progress Notes * Jazmyn Reyes RN - 04/12/2023 2:00 PM EDFili: Treatment # 11 Images from the original note were not included. 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 Feels improvement in both her depression and anxiety today, however has learned that her father in law who is 101 is not doing well and will likely be passing in the near future. She plans to visit him tomorrow. 1 HEARING AID TO BE REMOVED PRIOR [...] standard protocol. Patient received TMS using a [employer] device according to the following protocol: Treatment [...] target parameter settings (Please see the TMS patient services technician note for moredetail.). Monitor the patient's tolerance of TMS. Minimize and manage TMS side-effects. Monitor the patient's therapeutic response to TMS. equipment operator intermodal yard Complete acute TMS series, as planned. Achieve at least a 50% reduction in the patient's depressive symptoms, as measured by a research-validated depression screen (PHQ-9, QIDS-SR). Next treatment date: 04/13/23 2:00 PM TMS MD was on-site and immediately available during the duration of today's treatment. Jazmyn Reyes RN documented in this encounter Plan of Treatment Not on file documented as of this encounter Visit Diagnoses Diagnosis Severe episode of recurrent major depressive disorder, without psychotic features documented in this encounter Care Teams System Support Specialist Relationship Specialty Start Date End Date Madhavi Smith APRN [address] [place] [address] PCP - General Family Medicine 12/14/21 documented as of this encounter
--- OUTSIDE RECORDS SUMMARY | 2024-04-12 11:16 | XMS_ITS | Encounter Summary ---
[place] [address] Care Team Providers Care Aboriginal Ceremonial Celebrant Name Role Phone Madhavi Smith APRN Primary Care Provider [phone] Encounter Details Date Type Department Care Team (Latest Contact Info) Description 05/25/2023 Travel Social History Tobacco Use Types Packs/Day [...] on filedocumented in this encounter Care Teams Aboriginal Ceremonial Celebrant Relationship Specialty Start Date End Date Madhavi Smith APRN [address] [place] [address] PCP - General Family Medicine 12/14/21 documented as of this encounter
--- OUTSIDE RECORDS SUMMARY | 2024-04-12 11:16 | XMS_ITS | Encounter Summary ---
Author Organization [facility] [place] [address] Care Team Providers Care College Or University Registrar Name Role Phone Madhavi Smith APRN Primary Care Provider [phone] Reason for Visit * Surgical (Routine) - Canceled Specialty Diagnoses / Procedures Referred By Contac t Referred To Contact Psychiatry Diagnoses Severe major depression without psychotic features Procedures Transcranial Magnetic Stimulation Giuseppe Dejesus MD [facility] [place] [address] [facility] [place] [address] Referral ID Status Reason Start Date Expiration Date V isits Requested Visits Authorized [id number] Canceled Consult, Test & Treat 02/28/2023 02/28/2024 36 36 Encounter Details Date Type Department Care Team (Latest Contact Info) Description 04/22/2023 2:00 PM EDT Procedure visit Psychiatry [place] [address] Rajan Abdalla [facility] [place] [address] Severe episode of recurrent major depressive disorder, [...] Notes * Leigh Ann Mcdonough RN - 04/22/2023 2:00 PM EDT Images from the original note were not included. 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 1 HEARING AID TO BE REMOVED PRIOR [...] Entered): last 4 values of depression scores 03/29/2023 1:40 PM 04/06/2023 1:46 PM 04/13/2023 1:31 PM 04/21/2023 2:00 PM PHQ-9 Score via Pt Questionnaire PHQ - 9 Score 24 (Severe Depression) 20 (Severe Depression) 14 (Moderate Depression) 9 (Mild Depression) 03/29/2023 1:40 PM 04/06/2023 1:46 PM 04/13/2023 1:31 PM 04/21/2023 2:00 PM PHQ-9: Scores Only Post 12/20/22 Conversion PHQ-9 Score 24 (Severe Depression) 20 (Severe Depression) 14 (Moderate Depression) 9 (Mild Depression) 03/29/2023 1:42 PM 04/06/2023 1:50 PM 04/13/2023 1:36 PM 04/21/2023 2:02 PM qids score - last 4 scores Total QIDS-SR Score 14 (Moderate) 19 (Severe) 12 (Moderate) 12 (Moderate) Timeout was performed, in which the patient's name//MRN, and the treatment protocol, were confirmed. The patient's treatment cap was fitted and the patient was seated in the treatment chair, per standard protocol. Patient received TMS using a [employer] device according to the following protocol: Treatment [...] target parameter settings (Please see the TMS neurology technician note for moredetail.). Monitor the patient's tolerance of TMS. Minimize and manage TMS side-effects. Monitor the patient's therapeutic response to TMS. extermination supervisor Complete acute TMS series, as planned. Achieve at least a 50% reduction in the patient's depressive symptoms, as measured by a research-validated depression screen (PHQ-9, QIDS-SR). Next treatment date: 04/22/23 2:00 PM TMS MD was on-site and immediately available during the duration of today's treatment. 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 1 HEARING AID TO BE REMOVED PRIOR [...] standard protocol. Patient received TMS using a [employer] device according to the following protocol: Treatment [...] target parameter settings (Please see the TMS neurology technician note for moredetail.). Monitor the patient's tolerance of TMS. Minimize and manage TMS side-effects. Monitor the patient's therapeutic response to TMS. extermination supervisor Complete acute TMS series, as planned. Achieve at least a 50% reduction in the patient's depressive symptoms, as measured by a research-validated depression screen (PHQ-9, QIDS-SR). Next treatment date: 05/09/23 2:00 PM TMS MD was on-site and immediately available during the duration of today's treatment. Orquidea Vargas documented in this encounter Plan of Treatment Not on file documented as of this encounter Visit Diagnoses Diagnosis Severe episode of recurrent major depressive disorder, without psychotic features documented in this encounter Care Teams College Or University Registrar Relationship Specialty Start Date End Date Madhavi Smith APRN [address] [place] [address] PCP - General Family Medicine 12/14/21 documented as of this encounter
--- OUTSIDE RECORDS SUMMARY | 2024-04-12 11:16 | XMS_ITS | Encounter Summary ---
[place] [address] Care Team Providers Care Type Disk Quality Control Supervisor Name Role Phone Madhavi Smith APRN Primary Care Provider [phone] Encounter Details Date Type Department Care Team (Latest Contact Info) Description 05/20/2023 Travel Social History Tobacco Use Types Packs/Day [...] on filedocumented in this encounter Care Teams Type Disk Quality Control Supervisor Relationship Specialty Start Date End Date Madhavi Smith APRN [address] [place] [address] PCP - General Family Medicine 12/14/21 documented as of this encounter
--- OUTSIDE RECORDS SUMMARY | 2024-04-12 11:16 | XMS_ITS | Encounter Summary ---
[place] [address] Care Team Providers Care Underground Truck Operator Name Role Phone Madhavi Smith APRN Primary Care Provider [phone] Encounter Details Date Type Department Care Team (Latest Contact Info) Description 04/08/2023 Travel Social History Tobacco Use Types Packs/Day [...] on filedocumented in this encounter Care Teams Underground Truck Operator Relationship Specialty Start Date End Date Madhavi Smith APRN [address] [place] [address] PCP - General Family Medicine 12/14/21 documented as of this encounter
--- OUTSIDE RECORDS SUMMARY | 2024-04-12 11:16 | XMS_ITS | Encounter Summary ---
Author Organization [facility] Address [facility] [place] [address] Care Team Providers Care Custom Grinder Name Role Phone Luis Madhavi MATHEUS Primary Care Provider [phone] Encounter Details Date Type Department Care Team (Latest Contact Info) Description 03/29/2023 2:00 PM EDT Procedure visit Psychiatry [place] [phone] Mone Lieberman MD [facility] [place] [address] Severe major depression without psychotic features Social [...] as of this encounter Progress Notes * Cecilia Pollock RN - 03/29/2023 2:00 PM EDT Images from the original note were not included. 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 She was accompanied to the session with her , Tunde. 1 HEARING AID TO BE REMOVED PRIOR TO TMS ___ This tx session was observed by [facility] staff nurses: Paxton Encinas and Nirmala Olsens which can impact on TMS: 1. Vybrid 40 mg every morning (for 7 years) 2. Zolpidem 5-10 mg qhs prn for sleep 3. Lorazepam 1 mg daily as needed for anxiety Metal Safety Screen was completed by Nirmala Dejesus on 02/28/23: Consultation appointment with Dr. Nirmala Dean and Negin Torrez on 02/28/23-> per Dr. Dejesus on 02/28/23 note: She states she is very suicidal and regularly makes plans in her head. She feels hopeless as she has tried so many things. However, she states she feels safe currently. She states right now this visit and the thought of something to try does give her hope to the future. She denies any current plan or intent to end her life. 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 Safety Assessment: Aziza currently has an elevated risk of suicide from her baseline, with recent thoughts of suicide and endorsed thoughts of plans, though no current plan or intent to end her life. Her risk of suicide is also elevated by history of prior suicide attempts, depressive symptoms, and endorsed hopelessness. Her risk of suicide is mitigated by strong support system, safety planning, and future orientation. TMS consent reviewed & signed w/ Dr. Ariel Lieberman prior to starting TMS on 03/29/23 PRE-TMS BASELINE Questionnaire Scores (prior to starting on 03/29/23): QIDS-SR = 22 on 02/25/23 and 24 on 03/29/23 PHQ-9 = 25 on 02/25/23 and 14 on 03/29/23 OFELIA-7= 19 on 02/25/23 John: 08/31 - completed 02/28/23 Outpatient prescriber: referred by Sirena Obrien APRN for consultation regarding worsening depression and increasing suicidal ideation. Keily Obrien, [facility], [address] [place] [phone], (phone), (fax) Psychiatrist: ___ Therapist: ___ PCP: ___ Patient reports improvement during current course of TMS: This was this patient's first TMS session. Patient reports TMS side effects since the last TMS treatment: Other This was this patient's first TMS session. Patient reports changes in overall health since last TMS treatment: This was this patient's first TMS session. Patient reports changes in medications since last TMS treatment: This was this patient's first TMS session. PHQ9 Questionnaires Data (Clinic and Pt Entered): last 4 values of depression scores Row Labels 02/25/2023 4:32 PM 03/29/2023 1:40 PM PHQ-9 Score via Pt Questionnaire Section Header. No data exists in this row. PHQ - 9 Score 25 (Severe Depression) 24 (Severe Depression) Row Labels 09/30/2015 12:00 AM 10/16/2015 12:00 AM 02/25/2023 4:32 PM PHQ-9: Scores Only Post 12/20/22 Conversion Section Header. No data exists in this row. PHQ-9 Score 16 (Moderately Severe Depression) 4 (Minimal Depression) 25 (Severe Depression) Row Labels 02/25/2023 4:36 PM 03/29/2023 1:42 PM qids [...] standard protocol. Patient received TMS using a Zipzoom device according to the following protocol: Treatment side: Left Treatment location: DLPFC Motor threshold (MT) performed today: Yes Patient MT: 55 % of amplitude Treatment level (Max %MT achieved): 80%- initally reported 8/10 eye pain that dissipated when the tx coil was repositioned by tilting it slightly posterior Parameter Settings: Waveform Hz Train Pulses # Trains Inter-train Interval (sec) Pulse Total Total Time (min) Theta Burst 5 10 20 8 600 3.17 TMS side effects reported by patient: Facial twitching feel dizzy/ lightheaded s/p tx completion- was encouraged to take slow deep breaths and was given spray of lavender hand anode builder with good effect. Complications: None Changes/recommendations for next treatment: Continue current protocol Goals of care: Short term: Provide TMS treatment at the target parameter settings (Please see the TMS arch support technician note for moredetail.). Monitor the patient's tolerance of TMS. Minimize and manage TMS side-effects. Monitor the patient's therapeutic response to TMS. senior care Complete acute TMS series, as planned. Achieve at least a 50% reduction in the patient's depressive symptoms, as measured by a research-validated depression screen (PHQ-9, QIDS-SR). Next treatment date: 03/30/2023 2:00 PM TMS MD was on-site and immediately available during the duration of today's treatment. CECILIA POLLOCK RN * Mone Lieberman MD - 03/29/2023 2:00 PM EDT Patient presented for a motor threshold assessment and Initial TMS treatment. Prior to the treatment, I discussed potential risks and benefits of TMS with the patient, answered all her questions and obtained informed consent. Goals of care: Short term: Provide TMS treatment at the target parameter settings (Please see the TMS arch support technician note for moredetail.). Monitor the patient's tolerance of TMS. Minimize and manage TMS side-effects. Monitor the patient's therapeutic response to TMS. ad terminal makeup operator Complete acute TMS series, as planned. Achieve at least a 50% reduction in the patient's depressive symptoms, as measured by a research-validated depression screen (PHQ-9, QIDS-SR). I examined this patient and performed a motor threshold assessment. Please see the TMS arch support technician note for more detail. Mone Lieberman MD documented in this encounter Plan of Treatment Not on file documented as of this encounter Visit Diagnoses Diagnosis Severe major depression without psychotic features Major depressive disorder, single episode, severe, without mention of psychotic behavior documented in this encounter Care Teams Custom Grinder Relationship Specialty Start Date End Date Madhavi Smith APRN [address] [place] [address] PCP - General Family Medicine 12/14/21 documented as of this encounter
--- OUTSIDE RECORDS SUMMARY | 2024-04-12 11:16 | XMS_ITS | Encounter Summary ---
[place] [address] Care Team Providers Care Paralegal Instructor Name Role Phone Madhavi Smith APRN Primary Care Provider [phone] Encounter Details Date Type Department Care Team (Latest Contact Info) Description 04/04/2023 Travel Social History Tobacco Use Types Packs/Day [...] on filedocumented in this encounter Care Teams Paralegal Instructor Relationship Specialty Start Date End Date Madhavi Smith APRN [address] [place] [address] PCP - General Family Medicine 12/14/21 documented as of this encounter
--- OUTSIDE RECORDS SUMMARY | 2024-04-12 11:16 | XMS_ITS | Encounter Summary ---
[place] [address] Care Team Providers Care Screen Operator Name Role Phone Madhavi Smith APRN Primary Care Provider Encounter Details Date Type Department Care Team (Latest Contact Info) Description 05/31/2023 Travel Social History Tobacco Use Types Packs/Day [...] on filedocumented in this encounter Care Teams Screen Operator Relationship Specialty Start Date End Date Madhavi Smith APRN [address] [place] [address] PCP - General Family Medicine 12/14/21 documented as of this encounter
--- OUTSIDE RECORDS SUMMARY | 2024-04-12 11:16 | XMS_ITS | Encounter Summary ---
Author Organization [facility] Address [facility] [place] [address] Care Team Providers Care Beauty Consultant Name Role Phone Madhavi Smith APRN Primary Care Provider [phone] Reason for Visit * Surgical (Routine) - Canceled Specialty Diagnoses / Procedures Referred By Contac t Referred To Contact Psychiatry Diagnoses Severe major depression without psychotic features Procedures Transcranial Magnetic Stimulation Giuseppe Dejesus MD [facility] [address] [facility] [place] [address] Referral ID Status Reason Start Date Expiration Date V isits Requested Visits Authorized [id number] Canceled Consult, Test & Treat 02/28/2023 02/28/2024 36 36 Encounter Details Date Type Department Care Team (Latest Contact Info) Description 04/18/2023 2:00 PM EDT Procedure visit Psychiatry [place] [address] Mone Lieberman MD [facility] [place] [address] Severe episode of recurrent major [...] of this encounter Progress Notes * Emily Garza, RN - 04/18/2023 2:00 PM EDT Images from the original note were not included. 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 Patient d/c Vit D/K post elevated lab draw per POC. 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 Otherwise prefersto stay at 1400 time slot. Patient endorses contacting Annette to arrange appt dates corresponding to this plan. 1 HEARING AID TO BE REMOVED PRIOR [...] standard protocol. Patient received TMS using a ConnectSoft device according to the following protocol: Treatment [...] target parameter settings (Please see the TMS analytical technician note for moredetail.). Monitor the patient's tolerance of TMS. Minimize and manage TMS side-effects. Monitor the patient's therapeutic response to TMS. senior care Complete acute TMS series, as planned. Achieve at least a 50% reduction in the patient's depressive symptoms, as measured by a research-validated depression screen (PHQ-9, QIDS-SR). Next treatment date: 04/19/23 2:00 PM PRANEETH MD was on-site and immediately available during the duration of today's treatment. Emily Garza, RN documented in this encounter Plan of Treatment Not on file documented as of this encounter Visit Diagnoses Diagnosis Severe episode of recurrent major depressive disorder, without psychotic features documented in this encounter Care Teams Beauty Consultant Relationship Specialty Start Date End Date Madhavi Smith APRN [address] [place] [address] PCP - General Family Medicine 12/14/21 documented as of this encounter
--- OUTSIDE RECORDS SUMMARY | 2024-04-12 11:16 | XMS_ITS | Encounter Summary ---
Author Organization [facility] [place] [address] Care Team Providers Care Bench Molder Name Role Phone Madhavi Smith APRN Primary Care Provider [phone] Reason for Visit * Surgical (Routine) - Canceled Specialty Diagnoses / Procedures Referred By Contac t Referred To Contact Psychiatry Diagnoses Severe major depression without psychotic features Procedures Transcranial Magnetic Stimulation Giuseppe Dejesus MD [facility] [place] [address] [facility] [place] [address] Referral ID Status Reason Start Date Expiration Date V isits Requested Visits Authorized [id number] Canceled Consult, Test & Treat 02/28/2023 02/28/2024 36 36 Encounter Details Date Type Department Care Team (Latest Contact Info) Description 04/15/2023 2:00 PM EDT Procedure visit Psychiatry and [place] [address] Rajan Abdalla [facility] [place] [address] Severe episode of recurrent major depressive disorder, [...] Notes * Leigh Ann Mcdonough RN - 04/15/2023 2:00 PM EDT Images from the original note were not included. 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 Patient takes PRN anxiolytic post treatment with good effect. Meet with MD on Tuesday (04/18) to discuss plan moving forward. 1 HEARING AID TO BE REMOVED PRIOR TO TMS This pt made mentioned of no med changes and stated she continues to take CalmEz lavender herb two QAM and ativan . PRE-TMS BASELINE Questionnaire Scores (prior to starting on 03/29/23- ): QIDS-SR = 22 on 02/25/23 and 24 on 03/29/23 PHQ-9 = 25 on 02/25/23 and 14 on 03/29/23 OFELIA-7= 19 on 02/25/23 Zajessicaini: 08/31 - completed 02/28/23 Patient reports improvement [...] standard protocol. Patient received TMS using a [employer] device according to the following protocol: Treatment [...] target parameter settings (Please see the TMS microbiology technician note for moredetail.). Monitor the patient's tolerance of TMS. Minimize and manage TMS side-effects. Monitor the patient's therapeutic response to TMS. termite control service representative Complete acute TMS series, as planned. Achieve at least a 50% reduction in the patient's depressive symptoms, as measured by a research-validated depression screen (PHQ-9, QIDS-SR). Next treatment date: 04/18/23 2:00 PM TMS MD was on-site and immediately available during the duration of today's treatment. Leigh Ann Mcdonough RN documented in this encounter Plan of Treatment Not on file documented as of this encounter Visit Diagnoses Diagnosis Severe episode of recurrent major depressive disorder, without psychotic features documented in this encounter Care Teams Bench Molder Relationship Specialty Start Date End Date Madhavi Smith APRN [address] [place] [address] PCP - General Family Medicine 12/14/21 documented as of this encounter
--- OUTSIDE RECORDS SUMMARY | 2024-04-12 11:16 | XMS_ITS | Encounter Summary ---
Author Organization [facility] [place] [address] Care Team Providers Care Leather Grainer Name Role Phone Luis Madhavi JARVIS Primary Care Provider [phone] Encounter Details Date Type Department Care Team (Latest Contact Info) Description 03/31/2023 2:00 PM EDT Procedure visit Psychiatry [place] [phone] Janes Huff MD [facility] [place] [address] Severe major depression without psychotic features Social [...] as of this encounter Progress Notes * Kar Pollock RN - 03/31/2023 2:00 PM EDT Images from the original note were not included. 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 This tx session was observed by this pt's , Tunde. 1 HEARING AID TO BE [...] headache --> took naproxen & hctz--> + effect Patient reports changes in overall health since [...] Depression) 25 (Severe Depression) 24 (Severe Depression) Row Labels 02/25/2023 4:36 PM [...] standard protocol. Patient received TMS using a Curse device according to the following protocol: Treatment [...] and was given spray of lavender hand internal grinder tender with good effect. Complications: None Changes/recommendations for next treatment: Continue current protocol- recommendation for 04/01/23 (F) and 04/04/23 (M) Start at 80 % of MT aincrease tx intensity one train at a time to 120 % as tolerated by pt. Goals of care: Short term: Provide TMS treatment at the target parameter settings (Please see the TMS telecommunications field technician note for moredetail.). Monitor the patient's tolerance of TMS. Minimize and manage TMS side-effects. Monitor the patient's therapeutic response to TMS. termite control servicer Complete acute TMS series, as planned. Achieve at least a 50% reduction in the patient's depressive symptoms, as measured by a research-validated depression screen (PHQ-9, QIDS-SR). Next treatment date: 04/01/2023 2:00 PM TMS MD was on-site and immediately available during the duration of today's treatment. KAR PLOLOCK RN documented in this encounter Plan of Treatment Not on file documented as of this encounter Visit Diagnoses Diagnosis Severe major depression without psychotic features Major depressive disorder, single episode, severe, without mention of psychotic behavior documented in this encounter Care Teams Leather Grainer Relationship Specialty Start Date End Date Madhavi Smith APRN [address] [place] [address] PCP - General Family Medicine 12/14/21 documented as of this encounter
--- OUTSIDE RECORDS SUMMARY | 2024-04-12 11:16 | XMS_ITS | Encounter Summary ---
Author Organization [facility] Address [facility] [place] [address] Care Team Providers Care Automated Access Systems Technician Name Role Phone Madhavi Smith APRN Primary Care Provider [phone] Reason for Visit * Surgical (Routine) - Canceled Specialty Diagnoses / Procedures Referred By Contac t Referred To Contact Psychiatry Diagnoses Severe major depression without psychotic features Procedures Transcranial Magnetic Stimulation Giuseppe Dejesus MD [facility] [place] [address] [facility] [place] [address] Referral ID Status Reason Start Date Expiration Date V isits Requested Visits Authorized [id number] Canceled Consult, Test & Treat 02/28/2023 02/28/2024 36 36 Encounter Details Date Type Department Care Team (Latest Contact Info) Description 04/06/2023 2:00 PM EDT Procedure visit Psychiatry [place] [address] Mone Lieberman MD [facility] [address] Severe recurrent major depression without [...] Progress Notes * Jazmyn Reyes, RN - 04/06/2023 2:00 PM EDTSummary: Treatment # 7 Images from the original note were not included. 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 Pleasant, no reported changes [...] effects since the last TMS treatment: Headache- 10 all over headache --> took naproxen & [...] target parameter settings (Please see the TMS precision agriculture technician note for moredetail.). Monitor the patient's tolerance of TMS. Minimize and manage TMS side-effects. Monitor the patient's therapeutic response to TMS. [facility] Complete acute TMS series, as planned. Achieve at least a 50% reduction in the patient's depressive symptoms, as measured by a research-validated depression screen (PHQ-9, QIDS-SR). Next treatment date: 04/07/23 2:00 PM TMS MD was on-site and immediately available during the duration of today's treatment. Jazmyn Reyes RN documented in this encounter Plan of Treatment Not on file documented as of this encounter Visit Diagnoses Diagnosis Severe recurrent major depression without psychotic features Major depressive disorder, recurrent episode, severe, without mention of psychotic behavior documented in this encounter Care Teams Automated Access Systems Technician Relationship Specialty Start Date End Date Madhavi Smith APRN [address] [place] [address] PCP - General Family Medicine 12/14/21 documented as of this encounter
--- OUTSIDE RECORDS SUMMARY | 2024-04-12 11:16 | XMS_ITS | Encounter Summary ---
Author Organization [facility] [place] [address] Care Team Providers Care Cook Restaurant Name Role Phone Madhavi Smith APRN Primary Care Provider Encounter Details Date Type Department Care Team (Late st Contact Info) Description 03/22/2023 Telephone Psychiatry [place] [address] Annette Storey Social History Tobacco Use Types Packs/Day Years [...] encounter Miscellaneous Notes * Telephone Encounter - Jose Wade - 03/22/2023 8:34 AM EDT Pt called following up on scheduling TMS. CB#: [phone] documented in this encounter Plan of Treatment Not on file documented as of this encounter Visit Diagnoses Not on filedocumented in this encounter Care Teams Cook Restaurant Relationship Specialty Start Date End Date Madhavi Smith APRN [address] [place] [address] PCP - General Family Medicine 12/14/21 documented as of this encounter
--- OUTSIDE RECORDS SUMMARY | 2024-04-12 11:16 | XMS_ITS | Encounter Summary ---
Author Organization [facility] [place] [address] Care Team Providers Care Counseling Department Chair Name Role Phone Madhavi Smith APRN Primary Care Provider [phone] Reason for Visit * Surgical (Routine) - Canceled Specialty Diagnoses / Procedures Referred By Contac t Referred To Contact Psychiatry Diagnoses Severe major depression without psychotic features Procedures Transcranial Magnetic Stimulation Giuseppe Dejesus MD [facility] [place] [address] [facility] [place] [address] Referral ID Status Reason Start Date Expiration Date V isits Requested Visits Authorized [id number] Canceled Consult, Test & Treat 02/28/2023 02/28/2024 36 36 Encounter Details Date Type Department Care Team (Latest Contact Info) Description 04/08/2023 2:00 PM EDT Procedure visit Psychiatry [place] [address] Rajan Abdalla [facility] [place] [address] Severe recurrent major depression without psychotic features [...] Progress Notes * Ilan Olivarez, RN - 04/08/2023 2:00 PM EDT Images from the original note were not included. 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 No change 1 HEARING AID TO BE REMOVED PRIOR [...] standard protocol. Patient received TMS using a SiBE[employer] device according to the following protocol: Treatment [...] target parameter settings (Please see the TMS chemical laboratory technician note for moredetail.). Monitor the patient's tolerance of TMS. Minimize and manage TMS side-effects. Monitor the patient's therapeutic response to TMS. halfway Complete acute TMS series, as planned. Achieve at least a 50% reduction in the patient's depressive symptoms, as measured by a research-validated depression screen (PHQ-9, QIDS-SR). Next treatment date: 04/11/23 2:00 PM TMS MD was on-site and immediately available during the duration of today's treatment. ILAN OLIVAREZ RN documented in this encounter Plan of Treatment Not on file documented as of this encounter Visit Diagnoses Diagnosis Severe recurrent major depression without psychotic features Major depressive disorder, recurrent episode, severe, without mention of psychotic behavior documented in this encounter Care Teams Counseling Department Chair Relationship Specialty Start Date End Date Madhavi Smith APRN [address] [place] [address] PCP - General Family Medicine 12/14/21 documented as of this encounter
--- OUTSIDE RECORDS SUMMARY | 2024-04-12 11:16 | XMS_ITS | Encounter Summary ---
[place] [address] Care Team Providers Care Moss Bleacher Name Role Phone Madhavi Smith APRN Primary Care Provider [phone] Encounter Details Date Type Department Care Team (Latest Contact Info) Description 05/11/2023 Travel Social History Tobacco Use Types Packs/Day [...] on filedocumented in this encounter Care Teams Moss Bleacher Relationship Specialty Start Date End Date Madhavi Smith APRN [address] [place] [address] PCP - General Family Medicine 12/14/21 documented as of this encounter
--- OUTSIDE RECORDS SUMMARY | 2024-04-12 11:16 | XMS_ITS | Encounter Summary ---
[place] [address] Care Team Providers Care In Processing Instructor Name Role Phone Madhavi Smith APRN Primary Care Provider [phone] Encounter Details Date Type Department Care Team (Latest Contact Info) Description 05/13/2023 Travel Social History Tobacco Use Types Packs/Day [...] on filedocumented in this encounter Care Teams In Processing Instructor Relationship Specialty Start Date End Date Madhavi Smith APRN [address] [place] [address] PCP - General Family Medicine 12/14/21 documented as of this encounter
--- OUTSIDE RECORDS SUMMARY | 2024-04-12 11:16 | XMS_ITS | Encounter Summary ---
Author Organization [facility] Address [facility] [place] [address] Care Team Providers Care Balancer Name Role Phone Madhavi Smith APRN Primary Care Provider [phone] Reason for Visit * Surgical (Routine) - Canceled Specialty Diagnoses / Procedures Referred By Contac t Referred To Contact Psychiatry Diagnoses Severe major depression without psychotic features Procedures Transcranial Magnetic Stimulation Giuseppe Dejesus MD [facility] [place] [address] [facility] [address] Referral ID Status Reason Start Date Expiration Date V isits Requested Visits Authorized [id number] Canceled Consult, Test & Treat 02/28/2023 02/28/2024 36 36 Encounter Details Date Type Department Care Team (Latest Contact Info) Description 05/24/2023 2:00 PM EDT Procedure visit Psychiatry and [place] [address] Mone Lieberman MD [facility] [place] [address] Severe episode of recurrent major [...] Progress Notes * Orquidea Vargas S - 05/24/2023 2:00 PM EDT Images from the original note were not included. TMS TREATMENT NOTE Aziza Tamez received Transcranial Magnetic Stimulation (TMS) The primary diagnosis is: MDD Recurrent w/o Psychotic Features (F33.2) Treatment Phase: Acute Treatment Number: 30 Interval history: Patient reports depression has improved [...] her forehead. No medication taken for relief. Patient reports changes in overall health since last TMS treatment: Mild sinus pressure. Patient reports changes in medications since last TMS treatment: Took 35mg Atarax around 929 to treat anxiety. Helped a little bit. PHQ9 Questionnaires Data (Clinic and Pt Entered): [...] 3.17 TMS side effects reported by patient: At initial placement of magnet patient had left eyebrow movement and pain. Readjusted magnet placement and patient reports pain around left eyebrow quite intense, however did not request magnet be moved or treatment paused. Complications: None Changes/recommendations for next treatment: Continue current protocol- Goals of care: Short term: Provide TMS treatment at the target parameter settings (Please see the TMS target aircraft technician note for moredetail.). Monitor the patient's tolerance of TMS. Minimize and manage TMS side-effects. Monitor the patient's therapeutic response to TMS. skilled nursing Complete acute TMS series, as planned. Achieve at least a 50% reduction in the patient's depressive symptoms, as measured by a research-validated depression screen (PHQ-9, QIDS-SR). Next treatment date: 05/25/23 2:00 PM TMS MD was on-site and immediately available during the duration of today's treatment. Orquidea Vargas documented in this encounter Plan of Treatment Not on file documented as of this encounter Visit Diagnoses Diagnosis Severe episode of recurrent major depressive disorder, without psychotic features documented in this encounter Care Teams Balancer Relationship Specialty Start Date End Date Madhavi Smith APRN [address] [place] [address] PCP - General Family Medicine 12/14/21 documented as of this encounter
--- OUTSIDE RECORDS SUMMARY | 2024-04-12 11:16 | XMS_ITS | Encounter Summary ---
Author Organization [facility] Address [facility] [place] [address] Care Team Providers Care Coffee Blender Name Role Phone Madhavi Smith APRN Primary Care Provider [phone] Reason for Visit * Surgical (Routine) - Canceled Specialty Diagnoses / Procedures Referred By Contac t Referred To Contact Psychiatry Diagnoses Severe major depression without psychotic features Procedures Transcranial Magnetic Stimulation Giuseppe Dejesus MD [facility] [place] [address] [facility] [place] [address] Referral ID Status Reason Start Date Expiration Date V isits Requested Visits Authorized [id number] Canceled Consult, Test & Treat 02/28/2023 02/28/2024 36 36 Encounter Details Date Type Department Care Team (Latest Contact Info) Description 05/17/2023 2:00 PM EDT Procedure visit Psychiatry [place] [address] Mone Lieberman MD [facility] [place] [address] Severe episode of recurrent major [...] Progress Notes * Orquidea Vargas S - 05/17/2023 2:00 PM EDT Images from the original note were not included. TMS TREATMENT NOTE Aziza Tamez received Transcranial Magnetic Stimulation (TMS) The primary diagnosis is: MDD Recurrent w/o Psychotic Features (F33.2) Treatment Phase: Acute Treatment Number: 25 Interval history: Patient reports depression has improved [...] side effects since the last TMS treatment: No Patient reports changes in overall health since last TMS treatment: No Patient reports changes in medications since last TMS treatment: Took 35mg of Atarax this am [id number]. PHQ9 Questionnaires Data (Clinic and Pt Entered): [...] side effects reported by patient: Left eyebrow twitching. Complications: None Changes/recommendations for next treatment: Continue current protocol- Goals of care: Short term: Provide TMS treatment at the target parameter settings (Please see the TMS electronic prepress technician note for moredetail.). Monitor the patient's tolerance of TMS. Minimize and manage TMS side-effects. Monitor the patient's therapeutic response to TMS. custodial Complete acute TMS series, as planned. Achieve at least a 50% reduction in the patient's depressive symptoms, as measured by a research-validated depression screen (PHQ-9, QIDS-SR). Next treatment date: 05/18/23 2:00 PM TMS MD was on-site and immediately available during the duration of today's treatment. Orquidea Vargas documented in this encounter Plan of Treatment Not on file documented as of this encounter Visit Diagnoses Diagnosis Severe episode of recurrent major depressive disorder, without psychotic features documented in this encounter Care Teams Coffee Blender Relationship Specialty Start Date End Date Madhavi Smith APRN [address] [place] [address] PCP - General Family Medicine 12/14/21 documented as of this encounter
--- OUTSIDE RECORDS SUMMARY | 2024-04-12 11:16 | XMS_ITS | Encounter Summary ---
Author Organization [facility] [place] [address] Care Team Providers Care Visualizer Name Role Phone Luis Madhavi JARVIS Primary Care Provider [phone] Encounter Details Date Type Department Care Team (Latest Contact Info) Description 04/01/2023 2:00 PM EDT Procedure visit Psychiatry [place] [id number] Janes Huff MD [facility] [place] [address] Severe major depression without psychotic features Social [...] Notes * Leigh Ann Mcdonough RN - 04/01/2023 2:00 PM EDT Images from the original note were not included. TMS TREATMENT NOTE Aziza Tamez received Transcranial Magnetic Stimulation (TMS) The primary diagnosis is: MDD Recurrent w/o Psychotic Features (F33.2) Treatment Phase: Acute Treatment Number: 4 Interval history: none. This tx session was [...] standard protocol. Patient received TMS using a Mavatar device according to the following protocol: Treatment [...] and was given spray of lavender hand material controller with good effect. Complications: None Changes/recommendations for next treatment: Continue current protocol- recommendation for 04/01/23 (F) and 04/04/23 (M) Start at 80 % of MT aincrease tx intensity one train at a time to 120 % as tolerated by pt. Goals of care: Short term: Provide TMS treatment at the target parameter settings (Please see the TMS bench lay out technician note for moredetail.). Monitor the patient's tolerance of TMS. Minimize and manage TMS side-effects. Monitor the patient's therapeutic response to TMS. half-way Complete acute TMS series, as planned. Achieve at least a 50% reduction in the patient's depressive symptoms, as measured by a research-validated depression screen (PHQ-9, QIDS-SR). Next treatment date: 04/03/2023 2:00 PM TMS MD was on-site and immediately available during the duration of today's treatment. Leigh Ann Mcdonough RN documented in this encounter Plan of Treatment Not on file documented as of this encounter Visit Diagnoses Diagnosis Severe major depression without psychotic features Major depressive disorder, single episode, severe, without mention of psychotic behavior documented in this encounter Care Teams Visualizer Relationship Specialty Start Date End Date Madhavi Smith APRN [address] [place] [address] PCP - General Family Medicine 12/14/21 documented as of this encounter
--- OUTSIDE RECORDS SUMMARY | 2024-04-12 11:16 | XMS_ITS | Encounter Summary ---
Author Organization [facility] Address [facility] [place] [address] Care Team Providers Care Sieve Repairer Name Role Phone Madhavi Smith APRN Primary Care Provider [phone] Reason for Visit * Surgical (Routine) - Canceled Specialty Diagnoses / Procedures Referred By Contac t Referred To Contact Psychiatry Diagnoses Severe major depression without psychotic features Procedures Transcranial Magnetic Stimulation Giuseppe Dejesus MD [facility] [place] [address] [facility] [place] [address] Referral ID Status Reason Start Date Expiration Date V isits Requested Visits Authorized [id number] Canceled Consult, Test & Treat 02/28/2023 02/28/2024 36 36 Encounter Details Date Type Department Care Team (Latest Contact Info) Description 05/10/2023 2:00 PM EDT Procedure visit Psychiatry and [place] [address] Mone Lieberman MD [facility] [address] Severe episode of recurrent major [...] Progress Notes * Emily Garza, RN - 05/10/2023 2:00 PM EDT Images from the original note were not included. TMS TREATMENT NOTE Aziza Tamez received Transcranial Magnetic Stimulation (TMS) The primary diagnosis is: MDD Recurrent w/o Psychotic Features (F33.2) Treatment Phase: Acute Treatment Number: 20 Interval history: Patient reports depression continues to improve. Patient took hydroxyzine 40mg POthis morning for unbearable anxiety that started as depression lifted 2/2 to TMS. Patient states anxiety did not fully dissipate, but drastically declined to manageable level. Appt with Gillian Bhagat yielded hydroxyzine 50mg PO daily, patient has f/u appt with Leola on 05/13 to determine appropriateness. MD Lieberman aware, whom determined no need to re- establish MT 2/2 being relatively low dose/ minimal change from current regimen (was taking hydroxyzine 10mg PRN for headaches). Patient plan to take hydroxyzine 30mg PO on 05/11 am to see what minimal dose deems helpful for anxiety. 1 HEARING AID TO BE REMOVED PRIOR [...] 4 values of depression scores Row Labels 04/06/2023 1:46 PM 04/13/2023 1:31 PM 04/21/2023 2:00 PM 05/09/2023 1:50 PM PHQ-9 Score via Pt Questionnaire Section Header. No data exists in this row. PHQ - 9 Score 20 (Severe Depression) 14 (Moderate Depression) 9 (Mild Depression) 7 (Mild Depression) Row Labels 04/06/2023 1:46 PM 04/13/2023 1:31 PM 04/21/2023 2:00 PM 05/09/2023 1:50 PM PHQ-9: Scores Only Post 12/20/22 Conversion Section Header. No data exists in this row. PHQ-9 Score 20 (Severe Depression) 14 (Moderate Depression) 9 (Mild Depression) 7 (Mild Depression) Row Labels 04/13/2023 1:36 PM 04/21/2023 2:02 PM 05/05/2023 4:09 PM 05/09/2023 1:52 PM qids score - last 4 scores Section Header. No data exists in this row. Total QIDS-SR Score 12 (Moderate) 12 (Moderate) 7 (Mild) 10 (Mild) Timeout was performed, in which the patient's name//MRN, and the treatment protocol, were confirmed. The patient's treatment cap was fitted and the patient was seated in the treatment chair, per standard protocol. Patient received TMS using a ScoreGrid device according to the following protocol: Treatment [...] target parameter settings (Please see the TMS cardiac technician note for moredetail.). Monitor the patient's tolerance of TMS. Minimize and manage TMS side-effects. Monitor the patient's therapeutic response to TMS. wireless construction manager Complete acute TMS series, as planned. Achieve at least a 50% reduction in the patient's depressive symptoms, as measured by a research-validated depression screen (PHQ-9, QIDS-SR). Next treatment date: 05/11/23 2:00 PM TMS MD was on-site and immediately available during the duration of today's treatment. Emily Garza RN documented in this encounter Plan of Treatment Not on file documented as of this encounter Visit Diagnoses Diagnosis Severe episode of recurrent major depressive disorder, without psychotic features documented in this encounter Care Teams Sieve Repairer Relationship Specialty Start Date End Date Madhavi Smith APRN [address] [place] [address] PCP - General Family Medicine 12/14/21 documented as of this encounter
--- OUTSIDE RECORDS SUMMARY | 2024-04-12 11:16 | XMS_ITS | Encounter Summary ---
[place] [address] Care Team Providers Care Gear Changer Name Role Phone Madhavi Smith APRN Primary Care Provider [phone] Encounter Details Date Type Department Care Team (Latest Contact Info) Description 04/11/2023 Travel Social History Tobacco Use Types Packs/Day [...] on filedocumented in this encounter Care Teams Gear Changer Relationship Specialty Start Date End Date Madhavi Smith APRN [address] [place] [address] PCP - General Family Medicine 12/14/21 documented as of this encounter
--- OUTSIDE RECORDS SUMMARY | 2024-04-12 11:16 | XMS_ITS | Encounter Summary ---
Author Organization [facility] [place] [address] Care Team Providers Care Clearing Supervisor Name Role Phone Madhavi Smith APRN Primary Care Provider Reason for Visit * Surgical (Routine) - Canceled Specialty Diagnoses / Procedures Referred By Contac t Referred To Contact Psychiatry Diagnoses Severe major depression without psychotic features Procedures Transcranial Magnetic Stimulation Giuseppe Dejesus MD [facility] [place] [address] [facility] [place] [address] Referral ID Status Reason Start Date Expiration Date V isits Requested Visits Authorized [id number] Canceled Consult, Test & Treat 02/28/2023 02/28/2024 36 36 Encounter Details Date Type Department Care Team (Latest Contact Info) Description 05/20/2023 2:00 PM EDT Procedure visit Psychiatry [place] [address] Rajan Abdalla [facility] [address] Severe recurrent major depression without psychotic features [...] Progress Notes * Orquidea Vargas S - 05/20/2023 2:00 PM EDT Images from the original note were not included. TMS TREATMENT NOTE Aziza Tamez received Transcranial Magnetic Stimulation (TMS) The primary diagnosis is: MDD Recurrent w/o Psychotic Features (F33.2) Treatment Phase: Acute Treatment Number: 28 Interval history: Patient reports depression has improved with TMS treatment overall. 1 HEARING AID TO BE REMOVED PRIOR TO TMS PRE-TMS BASELINE Questionnaire Scores (prior to starting on 03/29/23- ): QIDS-SR = 22 on 02/25/23 and 24 on 03/29/23 PHQ-9 = 25 on 02/25/23 and 14 on 03/29/23 OFELIA-7= 19 on 02/25/23 Еленаnarini: 08/31 - completed 02/28/23 Patient reports improvement [...] treatment: Took 35mg of Atarax this am [id number]. PHQ9 Questionnaires Data (Clinic and Pt Entered): [...] standard protocol. Patient received TMS using a MagUrbster device according to the following protocol: Treatment [...] target parameter settings (Please see the TMS transportation technician note for moredetail.). Monitor the patient's tolerance of TMS. Minimize and manage TMS side-effects. Monitor the patient's therapeutic response to TMS. MCFP Complete acute TMS series, as planned. Achieve at least a 50% reduction in the patient's depressive symptoms, as measured by a research-validated depression screen (PHQ-9, QIDS-SR). Next treatment date: 05/23/23 2:00 PM TMS MD was on-site and immediately available during the duration of today's treatment. Orquidea Vargas documented in this encounter Plan of Treatment Not on file documented as of this encounter Visit Diagnoses Diagnosis Severe recurrent major depression without psychotic features Major depressive disorder, recurrent episode, severe, without mention of psychotic behavior documented in this encounter Care Teams Clearing Supervisor Relationship Specialty Start Date End Date Madhavi Smith APRN [address] [place] [address] PCP - General Family Medicine 12/14/21 documented as of this encounter
--- OUTSIDE RECORDS SUMMARY | 2024-04-12 11:16 | XMS_ITS | Encounter Summary ---
[place] [address] Care Team Providers Care Floor Broker Name Role Phone Madhavi Smith APRN Primary Care Provider [phone] Encounter Details Date Type Department Care Team (Latest Contact Info) Description 06/06/2023 Travel Social History Tobacco Use Types Packs/Day [...] on filedocumented in this encounter Care Teams Floor Broker Relationship Specialty Start Date End Date Madhavi Smith APRN [address] [place] [address] PCP - General Family Medicine 12/14/21 documented as of this encounter
--- OUTSIDE RECORDS SUMMARY | 2024-04-12 11:16 | XMS_ITS | Encounter Summary ---
Author Organization [facility] Address [facility] [place] [address] Care Team Providers Care Patient Services Clerk Name Role Phone Madhavi Smith MATHEUS Primary Care Provider [phone] Encounter Details Date Type Department Care Team (Latest Contact Info) Description 03/30/2023 2:00 PM EDT Procedure visit Psychiatry [place] [id number] Mone Lieberman MD [facility] [place] [address] Severe major depression without psychotic features Social [...] Progress Notes * Kar Pollock RN - 03/30/2023 2:00 PM EDT Images from the original note were not included. TMS TREATMENT NOTE Aziza Tamez received Transcranial Magnetic Stimulation (TMS) The primary diagnosis is: MDD Recurrent w/o Psychotic Features (F33.2) Treatment Phase: Acute Treatment Number: 2 Interval history: none. This tx session was observed by this pt's , Tunde and Lilia Garza [facility]. 1 HEARING AID TO BE REMOVED PRIOR TO TMS This pt was reminded to complete PHQ-9 & QIDS prior to her TMS session next Tuesday. PRE-TMS BASELINE Questionnaire Scores (prior to starting on 03/29/23- ): QIDS-SR = 22 on 02/25/23 and 24 on 03/29/23 PHQ-9 = 25 on 02/25/23 and 14 on 03/29/23 OFELIA-7= 19 on 02/25/23 Zanarini: 08/31 - completed 02/28/23 Patient reports improvement during current course of TMS: No Patient reports TMS side effects since the last TMS treatment: Headache- 03/31 all over headache --> took naproxen & hctz, follow by a nap until 8:30 pm --> + effect (woke up and ate before bed) 8.5-9 hrs solid sleep Patient reports changes in overall health since [...] standard protocol. Patient received TMS using a [employer] device according to the following protocol: Treatment side: Left Treatment location: DLPFC Motor threshold (MT) performed today: No Patient MT: 55 % of amplitude Treatment level (Max %MT achieved): 120%- initally reported 4/10 discomfort. The tx intensity was gradually increased to 120 %. Parameter Settings: Waveform Hz Train Pulses # Trains Inter-train Interval (sec) Pulse Total Total Time (min) Theta Burst 5 10 20 8 600 3.17 TMS side effects reported by patient: Facial twitching feel dizzy/ lightheaded s/p tx completion- was encouraged to take slow deep breaths and was given spray of lavender hand communications billing analyst with good effect. Complications: None Changes/recommendations for next treatment: Continue current protocol Goals of care: Short term: Provide TMS treatment at the target parameter settings (Please see the TMS wind commissioning technician note for moredetail.). Monitor the patient's tolerance of TMS. Minimize and manage TMS side-effects. Monitor the patient's therapeutic response to TMS. MCFP Complete acute TMS series, as planned. Achieve at least a 50% reduction in the patient's depressive symptoms, as measured by a research-validated depression screen (PHQ-9, QIDS-SR). Next treatment date: 03/31/2023 2:00 PM TMS MD was on-site and immediately available during the duration of today's treatment. KAR POLLOCK RN documented in this encounter Plan of Treatment Not on file documented as of this encounter Visit Diagnoses Diagnosis Severe major depression without psychotic features Major depressive disorder, single episode, severe, without mention of psychotic behavior documented in this encounter Care Teams Patient Services Clerk Relationship Specialty Start Date End Date Madhavi Smith APRN [address] [place] [address] PCP - General Family Medicine 12/14/21 documented as of this encounter
--- OUTSIDE RECORDS SUMMARY | 2024-04-12 11:16 | XMS_ITS | Encounter Summary ---
[place] [address] Care Team Providers Care Dialysis Clinical Manager Name Role Phone Madhavi Smith APRN Primary Care Provider [phone] Encounter Details Date Type Department Care Team (Latest Contact Info) Description 04/18/2023 Travel Social History Tobacco Use Types Packs/Day [...] on filedocumented in this encounter Care Teams Dialysis Clinical Manager Relationship Specialty Start Date End Date Madhavi Smith APRN [address] [place] [address] PCP - General Family Medicine 12/14/21 documented as of this encounter
--- OUTSIDE RECORDS SUMMARY | 2024-04-12 11:16 | XMS_ITS | Encounter Summary ---
Author Organization [facility] [place] [address] Care Team Providers Care Motor Coach Chauffeur Name Role Phone Madhavi Smith APRN Primary Care Provider [phone] Reason for Visit * Surgical (Routine) - Canceled Specialty Diagnoses / Procedures Referred By Contac t Referred To Contact Psychiatry Diagnoses Severe major depression without psychotic features Procedures Transcranial Magnetic Stimulation Giuseppe Dejesus MD [facility] [place] [address] [facility] [place] [address] Referral ID Status Reason Start Date Expiration Date V isits Requested Visits Authorized [id number] Canceled Consult, Test & Treat 02/28/2023 02/28/2024 36 36 Encounter Details Date Type Department Care Team (Latest Contact Info) Description 05/09/2023 2:00 PM EDT Procedure visit Psychiatry [place] [address] Mone Lieberman MD [facility] [place] [address] Severe episode of recurrent major [...] Progress Notes * Emily Garza, RN - 05/09/2023 2:00 PM EDT Images from the original note were not included. TMS TREATMENT NOTE Aziza Tamez received Transcranial Magnetic Stimulation (TMS) The primary diagnosis is: MDD Recurrent w/o Psychotic Features (F33.2) Treatment Phase: Acute Treatment Number: 19 Interval history: Patient reports depression continues to improve, that her anxiety persists, particularly when she wakes up. Discussed plan made prior 04/22 departure, get in touch with MATHEUS Bhagat to talk about taking hydroxyzine in the morning (MATHEUS Bhagat had already discussed that patient can take hydroxyzine for anxiety) and if current dosage appropriate to help anxiety (patient states feels more prominent as depressions has lessened). Patient Appt with MATHEUS on 05/10 to discuss appropriateness, aware not to make any major medication changes during TMS series. 1 HEARING AID TO BE REMOVED PRIOR [...] side effects since the last TMS treatment: No, TMS was paused 2/2 to time away. Patient reports changes in overall health since [...] standard protocol. Patient received TMS using a [employer] device according to the following protocol: Treatment [...] target parameter settings (Please see the TMS fitness technician note for moredetail.). Monitor the patient's tolerance of TMS. Minimize and manage TMS side-effects. Monitor the patient's therapeutic response to TMS. buttermaker helper Complete acute TMS series, as planned. Achieve at least a 50% reduction in the patient's depressive symptoms, as measured by a research-validated depression screen (PHQ-9, QIDS-SR). Next treatment date: 05/10/23 2:00 PM TMS MD was on-site and immediately available during the duration of today's treatment. Emily Garza RN documented in this encounter Plan of Treatment Not on file documented as of this encounter Visit Diagnoses Diagnosis Severe episode of recurrent major depressive disorder, without psychotic features documented in this encounter Care Teams Motor Coach Chauffeur Relationship Specialty Start Date End Date Madhavi Smith APRN [address] [place] [address] PCP - General Family Medicine 12/14/21 documented as of this encounter
--- OUTSIDE RECORDS SUMMARY | 2024-04-12 11:16 | XMS_ITS | Encounter Summary ---
Author Organization [facility] [place] [address] Care Team Providers Care House Detective Name Role Phone Madhavi Smith APRN Primary Care Provider [phone] Reason for Visit * Surgical (Routine) - Canceled Specialty Diagnoses / Procedures Referred By Contac t Referred To Contact Psychiatry Diagnoses Severe major depression without psychotic features Procedures Transcranial Magnetic Stimulation Giuseppe Dejesus MD [facility] [place] [address] [facility] [place] [address] Referral ID Status Reason Start Date Expiration Date V isits Requested Visits Authorized [id number] Canceled Consult, Test & Treat 02/28/2023 02/28/2024 36 36 Encounter Details Date Type Department Care Team (Latest Contact Info) Description 05/25/2023 2:00 PM EDT Procedure visit Psychiatry and [place] [address] Rajan Abdalla [facility] [place] [address] Severe episode of recurrent major depressive disorder, [...] Progress Notes * Orquidea Vargas S - 05/25/2023 2:00 PM EDT TMS TREATMENT NOTE Aziza Tamez received Transcranial Magnetic Stimulation (TMS) The primary diagnosis is: MDD Recurrent w/o Psychotic Features (F33.2) Treatment Phase: Acute Treatment Number: 31 Interval history: Patient reports depression has improved [...] the last TMS treatment: Got a migraine on the ride home. Took Naproxen sodium 50mg and Atarax 10mg. This helped relieve the pain a little bit. This morning she took 35mg Atarax around 0830 for anxiety. This helped somewhat. Patient reports [...] target parameter settings (Please see the TMS photo lab technician note for moredetail.). Monitor the patient's tolerance of TMS. Minimize and manage TMS side-effects. Monitor the patient's therapeutic response to TMS. custodial Complete acute TMS series, as planned. Achieve at least a 50% reduction in the patient's depressive symptoms, as measured by a research-validated depression screen (PHQ-9, QIDS-SR). Next treatment date: 05/26/23 2:00 PM TMS MD was on-site and immediately available during the duration of today's treatment. Orquidea Vargas documented in this encounter Plan of Treatment Not on file documented as of this encounter Visit Diagnoses Diagnosis Severe episode of recurrent major depressive disorder, without psychotic features documented in this encounter Care Teams House Detective Relationship Specialty Start Date End Date Madhavi Smith APRN [address] [place] [address] PCP - General Family Medicine 12/14/21 documented as of this encounter
--- OUTSIDE RECORDS SUMMARY | 2024-04-12 11:16 | XMS_ITS | Encounter Summary ---
Author Organization [facility] Address [facility] [place] [address] Care Team Providers Care Desk Assistant Name Role Phone Madhavi Smith APRN Primary Care Provider [phone] Reason for Visit * Surgical (Routine) - Canceled Specialty Diagnoses / Procedures Referred By Contac t Referred To Contact Psychiatry Diagnoses Severe major depression without psychotic features Procedures Transcranial Magnetic Stimulation Giuseppe Dejesus MD [facility] [place] [address] [facility] [place] [address] Referral ID Status Reason Start Date Expiration Date V isits Requested Visits Authorized [id number] Canceled Consult, Test & Treat 02/28/2023 02/28/2024 36 36 Encounter Details Date Type Department Care Team (Latest Contact Info) Description 05/18/2023 2:00 PM EDT Procedure visit Psychiatry [place] [address] Mone Lieberman MD [facility] [place] [address] Severe episode of recurrent major [...] Progress Notes * Emily Garza, RN - 05/18/2023 2:00 PM EDT Images from the original note were not included. TMS TREATMENT NOTE Aziza Tamez received Transcranial Magnetic Stimulation (TMS) The primary diagnosis is: MDD Recurrent w/o Psychotic Features (F33.2) Treatment Phase: Acute Treatment Number: 26 Interval history: Patient reports depression has improved [...] side effects since the last TMS treatment: Migraine after 05/17 treatment, took migraine medications as prescribed for good resolve. Patient reports changes in overall health since last TMS treatment: No Patient reports changes in medications since last TMS treatment: Took 35mg of Atarax this am [id number]. PHQ9 Questionnaires Data (Clinic and Pt Entered): [...] standard protocol. Patient received TMS using a [employer] device according to the following protocol: Treatment [...] target parameter settings (Please see the TMS military technician note for moredetail.). Monitor the patient's tolerance of TMS. Minimize and manage TMS side-effects. Monitor the patient's therapeutic response to TMS. shelter Complete acute TMS series, as planned. Achieve at least a 50% reduction in the patient's depressive symptoms, as measured by a research-validated depression screen (PHQ-9, QIDS-SR). Next treatment date: 05/19/23 2:00 PM TMS MD was on-site and immediately available during the duration of today's treatment. Emily Garza RN documented in this encounter Plan of Treatment Not on file documented as of this encounter Visit Diagnoses Diagnosis Severe episode of recurrent major depressive disorder, without psychotic features documented in this encounter Care Teams Desk Assistant Relationship Specialty Start Date End Date Madhavi Smith APRN [address] [place] [address] PCP - General Family Medicine 12/14/21 documented as of this encounter
--- OUTSIDE RECORDS SUMMARY | 2024-04-12 11:16 | XMS_ITS | Encounter Summary ---
Author Organization [facility] [address] Care Team Providers Care Supervisor Reinforced Steel Placing Name Role Phone Madhavi Smith APRN Primary Care Provider [phone] Reason for Visit * Surgical (Routine) - Canceled Specialty Diagnoses / Procedures Referred By Contac t Referred To Contact Psychiatry Diagnoses Severe major depression without psychotic features Procedures Transcranial Magnetic Stimulation Giuseppe Dejesus MD [facility] [place] [address] [facility] [place] [address] Referral ID Status Reason Start Date Expiration Date V isits Requested Visits Authorized [id number] Canceled Consult, Test & Treat 02/28/2023 02/28/2024 36 36 Encounter Details Date Type Department Care Team (Latest Contact Info) Description 04/11/2023 2:00 PM EDT Procedure visit Psychiatry [place] [address] Rajan Abdalla [facility] [place] [address] Severe episode of recurrent major depressive disorder, [...] as of this encounter Progress Notes * Amy Jazmyn N, RN - 04/11/2023 2:00 PM EDTSummary: Treatment # 10 Images from the original note were not included. TMS TREATMENT NOTE Aziza Tamez received Transcranial Magnetic Stimulation (TMS) The primary diagnosis is: MDD Recurrent w/o Psychotic Features (F33.2) Treatment Phase: Acute Treatment Number: 10 Interval history:. Feels as if her depression is improved and her suicidality is much improved. However, she has felt more anxious over the past few days, 1 HEARING AID TO BE REMOVED PRIOR [...] effects since the last TMS treatment: Headache- /10 feels like a sinus headache. Lasted a [...] standard protocol. Patient received TMS using a [employer] device according to the following protocol: Treatment [...] target parameter settings (Please see the TMS biological technician note for moredetail.). Monitor the patient's tolerance of TMS. Minimize and manage TMS side-effects. Monitor the patient's therapeutic response to TMS. parts counterman Complete acute TMS series, as planned. Achieve at least a 50% reduction in the patient's depressive symptoms, as measured by a research-validated depression screen (PHQ-9, QIDS-SR). Next treatment date: 04/12/23 2:00 PM TMS MD was on-site and immediately available during the duration of today's treatment. Jazmyn Reyes RN documented in this encounter Plan of Treatment Not on file documented as of this encounter Visit Diagnoses Diagnosis Severe episode of recurrent major depressive disorder, without psychotic features documented in this encounter Care Teams Supervisor Reinforced Steel Placing Relationship Specialty Start Date End Date Madhavi Smith APRN [address] [place] [address] PCP - General Family Medicine 12/14/21 documented as of this encounter
--- OUTSIDE RECORDS SUMMARY | 2024-04-12 11:17 | XMS_ITS | Encounter Summary ---
Author Organization [facility] [place] [address] Care Team Providers Care Ferryboat Ticket Taker Name Role Phone Madhavi Smith APRN Primary Care Provider [phone] Reason for Visit * Reason Onset Date Comments Appointment 07/05/2022 Encounter Details Date Type Department Care Team (Late st Contact Info) Description 07/05/2022 Telephone Neurology at [address] [id number] Cathy Silva APRN [facility] [place] [address] Appointment Social History Tobacco Use Types Packs/Day Years [...] encounter Miscellaneous Notes * Telephone Encounter - Dilma Godoy - 07/05/2022 2:48 PM EST Please reschedule from canceled appointment on 06/09/2022 * Telephone Encounter - Dilma Godoy - 07/05/2022 2:47 PM EST ----- Message from Aziza Tamez sent at 06/04/2022 1:06 PM EDT ----- Regarding: Appointment canceled Contact: Appointment canceled for Aziza SpainLucaHumberto ([id number]) Visit Type: FOLLOW UP VISIT Date Time Length Provider Department 06/09/2022 11:30 AM 30 mins. Cathy Silva APRN [facility] NEUROLOGY Reason for Cancellation: Cancelled via MyChart Patient Comments: Would it be possible to have a telephone appointment instead of a face to face. I???m doing well. The medication I???m currently taking is helping me manage my migraines. documented in this encounter Plan of Treatment Not on file documented as of this encounter Visit Diagnoses Not on filedocumented in this encounter Care Teams Ferryboat Ticket Taker Relationship Specialty Start Date End Date Madhavi Smith APRN [address] [place] [address] PCP - General Family Medicine 12/14/21 documented as of this encounter
--- OUTSIDE RECORDS SUMMARY | 2024-04-12 11:17 | XMS_ITS | Encounter Summary ---
[place] [address] Care Team Providers Care Paintings Conservator Name Role Phone Madhavi Smith APRN Primary Care Provider [phone] Reason for Referral * Psychiatric (Routine) - Closed Specialty Diagnoses / Procedures Referred By Contac t Referred To Contact Psychiatry Diagnoses Depression, unspecified depression type Suicidal ideation Sirena Obrien APRN [address] [place] [address] [facility] [place] [address] Referral ID Status Reason Start Date Expiration Date V isits Requested Visits Authorized [id number] Closed Consult, Test & Treat PCP Updated and/or Approved 10/13/2022 10/13/2023 6 6 Encounter Details Date Type Department Care Team (Latest Contact Info) Description 10/13/2022 Transcribe Orders eD Incoming Referrals [phone] Sirena Obrien APRN [address] [place] [address] Depression, unspecified depression type; Suicidal ideation Social History Tobacco Use Types Packs/Day Years [...] Outpatient Referral Routine Depression, unspecified depression type Suicidal ideation Ordered: 10/13/2022 documented as of this encounter Visit Diagnoses Diagnosis Depression, unspecified depression type Suicidal ideation documented in this encounter Care Teams Paintings Conservator Relationship Specialty Start Date End Date Madhavi Smith APRN [address] [place] [address] PCP - General Family Medicine 12/14/21 documented as of this encounter
--- OUTSIDE RECORDS SUMMARY | 2024-04-12 11:17 | XMS_ITS | Encounter Summary ---
Author Organization [place] [address] Care Team Providers Care Foreclosure Specialist Name Role Phone Luis Madhavi MATHEUS Primary Care Provider [phone] Encounter Details Date Type Department Care Team (Late st Contact Info) Description 01/26/2022 3:30 PM EDT Office Visit Dermatology [facility] [address] [place] [address] Edwar Seymour MD [address] [facility] [place] [address] Androgenic alopecia Social History Tobacco Use Types Packs/Day Years Used Date Smoking Tobacco: Never Smokeless Tobacco: Never Alcohol Use Standard Drinks/Week Comments Yes 1 (1 standard drink = 0.6 oz pur e alcohol) interminttent Sex and Gender Information Value Date Recorded Sex Assigned at Not on file Gender Identity Not on file Sexual Orientation Not on file documented as of this encounter Progress Notes * Edwar Seymour MD - 01/26/2022 3:30 PM EDT Images from the original note were not included. DEPARTMENT OF DERMATOLOGY Medical Dermatology Clinic Provider: Edwar Seymour MD FAAD at Dermatology [facility] Patient's preferred name Aziza ?? PAST MEDICAL HISTORY (if blank, patient denies history) Melanoma - Dysplastic nevi - SCC - BCC ?? [place] []? cryotherapy []? efudex []? PDT []? Other Relevant Medications []? Immunosuppression []? Transplant []? Oncogenic medication []? Nicotinamide 500mg po bid Other relevant history Androgenetic alopecia - spironolactone MDD c/b SI FAMILY HISTORY (if blank, patient denies history) Melanoma ??- NMSC ??- Other relevant history ??- SOCIAL HISTORY ? Occupation: Retired History of Present Illness: Aziza Tamez is 61 y.o. and here for the following: Medication refill ??? History of androgenic alopecia. Treated with spironolactone until 06 Jan 2022 when she stopped due to major depressive episode complicated by a suicide attempt and COVID infection. She reports that her mood has improved and her COVID symptoms have resolved but she would like to know if she should go back on spironolactone. She is happy with the results of the spironolactone today but thinks that she can take a break. Antecedent History:??hair loss?that was first identified??8 months ago. Never been treated or biopsied.??She reports associated burning, tightness, and itchiness, which she rates as 9/10, though the severity fluctuates. Prior to onset, she sustained severe sunburn to the area. She notes worsening of symptoms with exposure to sunlight and wearing hats. Since onset, she has noted decreased density and more hair in the shower drain. She denies associated scaling. She reports history of eczema with involvement of the scalp, but reports that her current symptoms are different from typical flare. She is currently on gabapentin for depression, which has not improved any of her symptoms. She notes additional stressors. She is unsure of family history of androgenetic alopecia as she lived in foster care. She reports history of anemia and anorexia, but denies any history of hypothyroidism.? Medications: Reviewed in eD-H Allergies: Reviewed in eD-H Skin Examination Standby: Sangeetha Stoner Well developed, well-nourished in no apparent distress, alert and oriented to time, person, place and situation. Focused examination of the scalp and hair significant for the following Exam Findings/Assessment/Plan Androgenic Alopecia Less hypodensity on the crown and superior scalp with terminal hairs on the frontal scalp than previous exams; basically, stable. ?? Improved hair density since she started spironolactone in 2019. Unlikely association of spironolactone to her depression. However, given recent events and her consideration of stopping spironolactone, recommend stopping spironolactone for now and reassess at a later date. Discussed my recommendations, as above. Discussed the risk of rapid hair loss when she stopped spironolactone but recommend reassessment in 6 months to reconsider and restart spironolactone or an alternative topical minoxidil. Answered all questions. Patient agrees to plan. ? Discontinue spironolactone ?? Reevaluate in 6 months. Follow-up: July 2022/August 2022 to reevaluate scalp. Return sooner as needed for suspicious lesion, new or worsening dermatitis. [] Recall placed [] Forwarded to machine pie maker [x] Patient scheduled before exiting Scribe attestation: PRANEETH Mock and Sangeetha Stoner have performed the documentation for this encounter in the presence of and acting as a scribe for MD ZOE Lambert. I performed the above scribed service and agree with the accuracy of the documentation in this encounter. Reviewed and signed by: Edwar Seymour MD FAAD Dermatology [facility] documented in this encounter Plan of Treatment Not on file documented as of this encounter Visit Diagnoses Diagnosis Androgenic alopecia Other alopecia documented in this encounter Care Teams Foreclosure Specialist Relationship Specialty Start Date End Date Madhavi Smith APRN [address] [place] [address] PCP - General Family Medicine 12/14/21 documented as of this encounter
--- OUTSIDE RECORDS SUMMARY | 2024-04-12 11:17 | XMS_ITS | Encounter Summary ---
[place] [address] Care Team Providers Care Faculty Criminal Justice Name Role Phone Madhavi Smith APRN Primary Care Provider [phone] Reason for Visit * Reason Onset Date Comments Prior Authorization 01/20/2022 PA PENDING, FAXED FORM ON 01/20 Encounter Details Date Type Department Care Team (Late st Contact Info) Description 01/20/2022 [place] [address] Felicia Licea Prior Authorization (PA PENDING, FAXED FORM ON 01/20) Social History Tobacco Use Types Packs/Day Years [...] encounter Miscellaneous Notes * Telephone Encounter - Felicia Licea - 01/20/2022 3:15 PM EDT Images from the original note were not included. Insurance Verified: MVP MM BH Insurance Effective To/From Dates: 08/22/2021 - CURRENT Third Democrat Vendor: NA Authorization number: PENDING FAXED RES FORM 01/20 Validity Dates: 01/18/2022 - CONCURRENT REVIEW Date of Service: 01/18/2022 CPT/Description: EMERGENCY PSYCH IPI ICD-10/Description: MDD (major depressive disorder), recurrent episode, severe [F33.2] Ordering Provider: Butch Jennings MD Patient Class: IPI How many days approved: 1 WITH CONCURRENT REVIEW Call Reference Number: VIVEK Spoke With: VIVEK Phone Number: VIVEK Financially Cleared: YES PSC Insurance Contact Information: VIVEK PSC Insurance Name: VIVEK Insurance Insurance Fax Number: VIVEK Additional Clinical Required Y/N?: N Patient Class Change Requirements: NA Notes - Include any additional documentation if provided: FAXED [employer] BH FORM, RES FORM AND H&P NOTES, AUTH PENDING. documented in this encounter Plan of Treatment Not on file documented as of this encounter Visit Diagnoses Not on filedocumented in this encounter Care Teams Faculty Criminal Justice Relationship Specialty Start Date End Date Madhavi Smith APRN [address] [place] [address] PCP - General Family Medicine 12/14/21 documented as of this encounter
--- OUTSIDE RECORDS SUMMARY | 2024-04-12 11:17 | XMS_ITS | Encounter Summary ---
[place] [address] Care Team Providers Care Cantilever Crane Operator Name Role Phone Madhavi Smith APRN Primary Care Provider [phone] Encounter Details Date Type Department Care Team (Late st Contact Info) Description 01/25/2023 Telephone Dermatology at [facility] [address] [place] [address] Edwar Seymour MD [address] [facility] [place] [address] Social History Tobacco Use Types Packs/Day Years [...] encounter Miscellaneous Notes * Telephone Encounter - Roxanne Oates - 01/25/2023 11:38 AM EDT Canceled appt per VM message from patient. Called pt and left my direct # for pt to call back to reschedule with Leslye Encinas for 6 month hair loss appt. documented in this encounter Plan of Treatment Not on file documented as of this encounter Visit Diagnoses Not on filedocumented in this encounter Care Teams Cantilever Crane Operator Relationship Specialty Start Date End Date Madhavi Smith APRN [address] [place] [address] PCP - General Family Medicine 12/14/21 documented as of this encounter
--- OUTSIDE RECORDS SUMMARY | 2024-04-12 11:17 | XMS_ITS | Encounter Summary ---
Author Organization [place] [address] Care Team Providers Care Lobster Man Name Role Phone LuisMadhavi MATHEUS Primary Care Provider [phone] Encounter Details Date Type Department Care Team (Late st Contact Info) Description 03/16/2023 3:45 PM EDT Office Visit Dermatology [facility] [address] [place] [id number] Edwar Seymour MD [address] [facility] [place] [address] Androgenic alopecia Social History Tobacco Use Types [...] as of this encounter Progress Notes * Caryl Campbell, [facility] - 03/16/2023 3:45 PM EDT Images from the original note were not included. DEPARTMENT OF DERMATOLOGY Medical Dermatology Clinic Provider: Edwar Seymour MD FAAD at Dermatology [facility] Patient's preferred name Aziza PAST MEDICAL HISTORY (if blank, patient denies history) Melanoma - Dysplastic nevi - SCC - BCC [place] [] cryotherapy [] efudex [] PDT [] Other Relevant Medications [] Immunosuppression [] Transplant [] Oncogenic medication [] Nicotinamide 500mg po bid Androgenetic alopecia Prev: spironolactone Other relevant history MDD c/b SI FAMILY HISTORY (if blank, patient denies history) Melanoma - NMSC - Other relevant history SOCIAL HISTORY Occupation: Retired Last seen 07/28/2022. History of Present Illness: Aziza Tamez is 62 y.o. and here for the following: History of androgenic alopecia. Not currently treating with anything. Stopped treating with spironolactone ~ 1 year ago with no changes since stopping. Medications: Reviewed in eD-H Allergies: Reviewed in eD-H Skin Examination Standby: Margret Anthony MA Well developed, well-nourished in no apparent distress, alert and oriented to time, person, place and situation. Focused examination of the skin of the scalp significant for the following: Exam Findings/Assessment/Plan Androgenic Alopecia Hypodensity on the crown and superior scalp with terminal hairs on the frontal scalp than previous exams; basically, stable. No change since stopping spironolactone. Recommend observation Discussed my recommendation, as above. Answered all questions. Patient agrees to plan and will return to clinic as needed for any concerns or changes Follow-up: As needed for suspicious lesion, new or worsening dermatitis. [] Recall placed [] Forwarded to project controls scheduler [] Patient scheduled before exiting Scribe attestation: Margret Anthony MA has performed the documentation for this encounter in the presence of and acting as a scribe for MD ZOE Lambert. I performed the above scribed service and agree with the accuracy of the documentation in this encounter. Reviewed and signed by: MD ZOE Lambert [facility] documented in this encounter Plan of Treatment Not on file documented as of this encounter Visit Diagnoses Diagnosis Androgenic alopecia Other alopecia documented in this encounter Care Teams Lobster Man Relationship Specialty Start Date End Date Madhavi Smith APRN [address] [place] [address] PCP - General Family Medicine 12/14/21 documented as of this encounter
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
--- OUTSIDE RECORDS SUMMARY | 2024-04-12 11:17 | XMS_ITS | Encounter Summary ---
Author Organization [facility] Address [facility] [place] [address] Care Team Providers Care Miner Name Role Phone Luis Madhavi JARVIS Primary Care Provider [phone] Reason for Visit * Auth/Cert Specialty Diagnoses / Procedures Referred By Contac t Referred To Contact Diagnoses MDD (major depressive disorder), recurrent episode, severe MDD / Severe Features Procedures EMERGENCY PSYCH IPI Referral ID Status Reason Start Date Expiration Date Visits Re quested Visits Authorized [id number] 1 1 Encounter Details Date Type Department Care Team (Late st Contact Info) Description 01/18/2022 5:13 PM EDT - 01/22/2022 4:00 PM EDT Hospital Encounter [address] [place] [address] Kirsten Hoffman MD [facility] [address] Butch Jennings MD [facility] [place] [address] Mone Lieberman MD [facility] [place] [address] Discharge Disposition: Home Social History Tobacco Use Types Packs/Day Years [...] Sign Reading Time Taken Comments Blood Pressure 121/72 01/22/2022 7:32 AM EDT Pulse 66 01/22/2022 7:32 AM EDT Temperature 36.3 ??C (97.3 ??F) 01/22/2022 7:32 AM ED T Respiratory Rate 12 01/22/2022 7:32 AM EDT Oxygen Saturation 100% 01/22/2022 7:32 AM EDT Inhaled Oxygen Concentration - - Weight 42 kg (92 lb 9.6 oz) 01/18/2022 5:46 PM E DT Height 167.6 cm (5' 6) 01/18/2022 5:46 PM EDT Body Mass Index 14.95 01/18/2022 5:46 PM EDT documented in this encounter Discharge Summaries * Brandi Torres MD - 01/22/2022 4:00 PM EDT Discharge Summary Patient Name: Aziza Tamez Patient Age: 61 y.o. Language: Sammarinese Race: White Ethnicity: Not nor Admit date: 01/18/2022 Discharge date and time: 01/22/2022 at 4 pm Attending Physician: Dr. Butch Jennings Discharge Physician: Dr. Brandi Torres Discharge Diagnoses (Hospital Problems) and Secondary Diagnoses (Chronic Problems): Active Hospital Problems Diagnosis ??? MDD (major depressive disorder), recurrent episode, severe ??? Severe protein-calorie malnutrition Resolved Hospital Problems No resolved problems to display. Active Non-Hospital Problems Diagnosis ??? Overdose ??? Migraine without aura and without status migrainosus, not intractable ??? Alopecia ??? Fatigue ??? Cold intolerance ??? Poor sleep pattern ??? Headache(784.0) ??? Irritable bowel syndrome with diarrhea ??? Depression ??? OFELIA (generalized anxiety disorder) ??? Constipation ??? Diarrhea ??? Dyschezia ??? Family history of diabetes mellitus ??? Postmenopausal ??? Pelvic pressure syndrome ??? Dyspareunia ??? History of menorrhagia ??? Generalized anxiety disorder ??? Major depressive disorder, recurrent episode, severe, without mention of psychotic behavior Follow-up Recommendations for Providers: Please monitor the patient's condition, and adjust medications accordingly The following medication changes were made during admission: 1. Mirtazapine 30 mg at night was continued for sleep and depressed mood. 2. Olanzapine was changed to 2.5 mg once nightly 3. Vilazodone 40 mg was continued during admission for depressed mood 4. Hydroxyzine, lamotrigine, zolpidem, and buspirone were discontinued. 5. The patient was prescribed lorazepam 0.5 mg daily prn however, the patient did not receive any on the inpatient psychiatric unit and lorazepam was not ordered at time of discharge. We would recommend not continuing this medication in the future as it can lead to sedation and is habit forming. The patient was interested in counseling services and dietary services in the outpatient setting and these options should be explored during follow up appointments. Follow-up Providers/Appointments: General Instructions Patient care management has coordinated the following appointments for you: [address] [address] Mental Health Prescriber & Therapist: Megha Obrien APRN. Tele-health appointment scheduledfor 01/26/22 at 3:00 PM. PCP: Madhavi Smith APRN. In-office appointment scheduled with alternative provider Dr. Daniel Quinonez MD for 01/29/22 at 11:40 AM. Please arrive by 11:25 AM to register. Community Mental Health Resources [facility] [address] [place] [address] Emergency 14/03 Crisis Line: [phone] Community Peer [facility] [address] [place] [id number] Email: If you are experiencing a mental health crisis, please call / text, or chat at the [facility] emergency crisis line at [phone] / [email or web address], or go to your nearest hospital emergency room for immediate help. Inpatient Provider Contact Information: For questions regarding this document (including laboratory or other studies) or issues relating tothis hospitalization, please contact your patient care advocate, Ester Larios RN, through the [facility] Supervisor Inspection Room . Issues after hours and on weekends will be handled by the residential driver on-call who can be reached through the Department of Psychiatry by calling [phone] and following the appropriate prompts to connect to the construction job titles team. Medication Instructions Continue to take all of the medications as instructed. Any medication changes will be addressed at your next outpatient appointment with the individual who prescribes your medications. Advance Care Plan The patient has an appointed surrogate decision maker: Yes Name of surrogate decision maker: Josiane Alfonso (Friend) The patient has medical advance directives: Yes The patient has psychiatric advance directives: No The patient declines further information at this time. All eleven elements of the Transition Record have been reviewed with the patient. Future Appointments and Orders Future Appointments and Orders Future Appointments Provider Department Dept Phone 01/26/2022 3:30 PM Edwar Seymour MD Dermatology at [facility] Arrive at: [employer] [address] [phone] 02/15/2022 9:00 AM Cathy Silva APRN Neurology at [facility] Arrive at: [employer] [facility] [address] [phone] Reason for Hospitalization: safety, stabilization and medication management History of Presentation: As per the 01/18/2022 admission H&P: Per initial consult note by Naga Alegre on 01/14/2022: ?? Aziza Tamez is a 61 y/o F with a pertinent psychiatric hx of major depressive disorder complicated by multiple suicide attempts via overdose requiring hospitalization, general anxiety disorder, and post-traumatic stress disorder presenting after suicide attempt via overdose and cutting of wrists. Previous suicide attempts involved overdose but no cutting. ?? Patient reports that prior to the last year, she was active with her . She engaged in outdoor activities including hiking and kayaking, and was very active around the house - gardening, tending to chickens. Over the past year, she reports having a worsening pressure/pain in her rectum which began to severely limit her mobility and activities. Pt saw a physician who recommended physical therapy and participated twice a week but to little effect. Over this time, her had to do everything for me and this has contributed to feelings of guilt and hopelessness. The pt reports that around September of this year, she got COVID which led to loss of smell and taste. Everything 'tasted l federica metal'. At this time, the pt's appetite decreased significantly to some bran and eggs daily. This contributed to decreased energy, and her feelings of guilt and hopelessness worsened markedly. She reports starting to plan the suicide attempt approximately 3 weeks ago. She had discussed suicide with her and counselor. She had started stashing pills (gabapentin) and purchased a carpet knife. She took some alcohol (about 1 pint) which she had saved with pain-killing cream to numb her arms and went to her old chicken coop where she committed the act. Pt had wrote letters to her familymembers that found yesterday.? Interval History: Today, patient reports continued improvement in her mood. Notes that this is the best I have felt since before I had COVID. Reports she has been eating consistent meals and food has not been tasting as bad as it previously had. Looking forward to psychiatric admission. Denied any SI/HI/AVH. No delusions or paranoia elicited. Denied any side effects from the Zyprexa initiation. ?? Hospital Course: Aziza Tamez was voluntarily admitted to inpatient psychiatry for safety, stabilization, and medication optimization. Standard admission labs were ordered and pertinent results are located below. Aziza Tamez was voluntarily admitted to inpatient psychiatry for safety, stabilization, and medication optimization with primary focus on developing of coping skills in group therapy sessions. This admission was after a step down from ICU to Med-Surgical management for hypovolemic shock. Standard admission labs were ordered and pertinent results are located below. ?? Aziza Tamez was pleasant, cooperative, and behaviorally appropriate for the duration of this admission. Aziza responded well to group therapy and practice of safety planning. During this admission, no medication changes were made and any changes made while she was being seen by the consult psychiatry service were continued. These changes include the followin. Mirtazapine 30 mg at night was continued for sleep and depressed mood. 2. Olanzapine was changed to 2.5 mg once nightly 3. Vilazodone 40 mg was continued during admission for depressed mood 4. Hydroxyzine, lamotrigine, zolpidem, and buspirone were discontinued. Her mood and mental status gradually improved throughout this admission. She was active in the therapeutic milieu and engaged in her treatment throughout this hospitalization with particular interestin group attendance. She was admitted with a walker assistance device prescribed by PT, but no longer needed it after walking trial without use of the walker. The hospital course was without complication. Safety planning was the main goal of the admission and discharge process given her severe suicide attempt. She created a plan that included focusing on early signs of depression, which included decreased eating and focus on gaining weight and social isolation. She stated that she would ask her close friend to check on her daily once she notices these changes. She illustrated her support network [facility] to include her , friends, uatsdin community, and her mental health prescriber. She was interested in pursuing finding a therapist to increase her mental health supports. She was future oriented and very motivated to improve her coping mechanisms during admission, noting she was excited to get back to gardening and spending time with her . She engaged with a dieti bridget during admission to discuss healthy ways to gain weight and she endorsed interest in finding adietitian outpatient. The treatment team called her , who ensured that all guns and medications were safely stored away and not accessible to the patient. The patient denied suicidal ideation or plan throughout admission and at time of discharge. She was encouraged to call a crisis number ifher depression worsened in the future and local community crisis line numbers were provided to the patient at discharge. On the day of discharge, the patient denied thoughts of suicide, homicide, or violence. Follow up was scheduled as described below, and this information was provided to the patient in her After VisitSummary. Patient was also provided with emergency contact information. Mental Status Exam: ?? Appearance: older than stated age , casually dressed and well groomed ?? Behavior: cooperative with the interview, calm and good eye contact ?? Speech: normal pitch, normal volume, normal rate and normal rhythm ?? Language: fluent in bolivian and without paraphasic errors ?? Mood: Excited but nervous ?? Affect: bright, full and mood-congruent ?? Thought Process: linear, logical and normal use of abstraction ?? Associations: intact ?? Thought Content: denied homicidal ideation, denied suicidal ideation, no bizarre delusions and no paranoid delusions ?? Perception: denied auditory hallucinations denied visual hallucinations not observed responding to internal stimuli ?? Orientation: grossly intact by interview ?? Attention/Concentration: able to sustain focus, able to resist distraction and able to attend interview ?? Cognition: grossly intact by interview ?? Memory: recent and remote memory grossly intact ?? Fund of Knowledge: appropriate for age and level of functioning ?? Insight: fair ?? Judgment: fair Q1 Wish to be : Have you wished you were or wished you could go to sleep and not wake up?:yes (01/18/221741) Q2 Suicidal Thoughts: Have you actually had any thoughts of killing yourself?: yes (01/18/221741) Q3 Suicidal Thought Method: Have you been thinking about how you might do this?: yes (01/18/221741) Q4 Suicidal Intent without Specific Plan: Have you had these thoughts and had some intention of acting on them?: yes (01/18/221741) Q5 Suicide Intent with Specific Plan: Have you started to work out or worked out the details of howto kill yourself? Do you intend to carry out this plan?: yes (01/18/221741) Q6 Suicide Behavior (Lifetime): Have you ever done anything, started to do anything, or prepared todo anything to end your life?: yes (01/18/221741) Within the Past 3 Months?: yes (01/18/221741) Functional and Cognitive Status: At baseline Important Studies: Lab Results Component Value Date WBC 7.2 [...] ALBUMIN 3.4 01/07/2022 PROT 5.3 (L) 01/07/2022 Component Value Date/Time SPGRAVITYUA 1.019 01/07/2022 0411 PHUADIP 5.0 01/07/2022 0411 PROTEINUADIP Negative 01/07/2022 0411 GLUCOSEU 100 (A) 01/07/2022 0411 KETONESUA 40 (A) 01/07/2022 0411 UROBILIUADIP Normal 01/07/2022 0411 BLOODUADIP Negative 01/07/2022 0411 NITRATEUA Negative 01/07/2022 0411 LEUKOESTERUA Negative 01/07/2022 0411 WBCUA 107 (H) 08/16/2013 0950 BILIRUBINUA Negative 01/07/2022 0411 Lab Results Component Value Date TSH 1.94 01/17/2019 Urine drug screen: presumptive positive for tricyclics, ethanol, and amphetamines Acetaminophen level < 5 Salicylate level = 4 Ethanol level = 392 Discharge Medications: (Reviewed at time of discharge, indication for use included): Your Medications New Medications Dose Details OLANZapine 2.5 mg Tab Commonly known as: ZyPREXA Take 1 tablet by mouth nightly. Replaces: OLANZapine zydis 5 mg Tbdl 2.5 mg Quantity: 14 tablet Refills: 1 Continued medications with new dosing Dose Details vilazodone 20 mg Tab Commonly known as: Viibryd Take 2 tablets by mouth daily. Start taking on: January 23, 2022 What changed: medication strength 40 mg Quantity: 28 tablet Refills: 0 Continued medications, unchanged Dose Details b complex vitamins Cap Take 1 capsule by mouth daily. 1 capsule Refills: 0 cholecalciferol (Vitamin D3) 125 mcg (5,000 unit) Tab Take 5,000 Units by mouth daily. 5,000 Units Refills: 0 mirtazapine 30 mg Tab Commonly known as: REMERON Take 1 tablet by mouth nightly. Indications: Major Depressive Disorder 30 mg Quantity: 30 tablet Refills: 0 spironolactone 50 mg Tab Commonly known as: ALDACTONE TAKE THREE TABLETS BY MOUTH EVERY DAY Quantity: 180 tablet Refills: 3 STOPPED Medications busPIRone 30 mg Tab Commonly known as: Buspar cyproheptadine 4 mg Tab Commonly known as: Periactin hydrOXYzine 10 mg Tab Commonly known as: Atarax lamoTRIgine 100 mg Tab Commonly known as: LaMICtal LORazepam 1 mg Tab Commonly known as: Ativan NAC 600 mg Cap Generic drug: Acetylcysteine naproxen sodium 550 mg Tab Commonly known as: ANAPROX OLANZapine zydis 5 mg Tbdl Commonly known as: ZyPREXA Replaced by: OLANZapine 2.5 mg Tab zolpidem 10 mg Tab Commonly known as: AMBIEN Antipsychotic Quality Measure (select one of three reasons): No Updated Allergies/ADRs: Allergies Allergen Reactions ??? Latex Hives ??? Sulfa (Sulfonamide Antibiotics) Hives ??? Trazodone Other (See Comments) headache ??? Lactose Intolerance [Lactase] Diarrhea Immunizations Given this Hospitalization: Immunization History Administered Date(s) Administered ??? Tdap Vaccine 01/07/2022 Smoking Status at Discharge: Social History Tobacco Use Smoking Status Never Smoker Smokeless Tobacco Never Used Instructions Given to Patient at Discharge: Patient Instructions PATIENT DISCHARGE INSTRUCTIONS Principal diagnosis at discharge and reason for admission: Active Hospital Problems MDD (major depressive disorder), recurrent episode, severe Worsening depression over past 5 months with suicidal preparatory behavior over the past three months Severe protein-calorie malnutrition >5% weight loss in 1 month, Moderate subcutaneous fat loss and Moderate lean muscle loss is consistent with severe protein-calorie malnutrition in the setting socia/environmental factors (pt with AN exacerbated by COVID+ infection) (Jazmin, JPEN J Parenteral Enteral Nutr. 2012 December; 36(3): 273-83) Vital Signs: BP: 121/72, Heart Rate: 66, Temp: 36.3 ??C (97.3 ??F), Resp: 12, BMI (Calculated): 14.94 Height: 167.6 cm (5' 6) (01/18/22 1746) Weight: 42 kg (92 lb 9.6 oz) (01/18/22 1746) Operations, Tests, and Procedures with Results: None Important Lab Data: Psychiatry Labs: Preg: No results found for: HCGQUAL, HCGQUANT Heme: Lab Results Component Value Date WBC 7.2 01/18/2022 HGB 11.8 01/18/2022 HCT 34.7 (L) 01/18/2022 MCV 96.7 (H) 01/18/2022 PLATELET 626 (H) 01/18/2022 Chem: Lab Results Component Value Date NA 139 01/18/2022 K 3.9 01/18/2022 CL 105 01/18/2022 CO2 23 01/18/2022 BUN 17 01/18/2022 CREATININE 0.54 (L) 01/18/2022 GLUCOSE 92 01/18/2022 GLUCFASTING 119 (H) 08/15/2013 CALCIUM 9.5 01/18/2022 ESTGFR 101 01/18/2022 LFTs: Lab Results Component Value Date ALT 70 (H) 01/07/2022 AST Not Perf 01/07/2022 ALKPHOS 39 01/07/2022 BILITOT 0.2 01/07/2022 Coags: No results found for: PTT, PT, INR Thyroid: Lab Results Component Value Date TSH 1.94 01/17/2019 Lipids and HgbA1C: No results found for: CHLPL, HDL, CHOLHDL, LDLCHOL, LDLDIRECT, TRIG No results found for: HA1C Vit Lvls: No results found for: AAAMDECP47, SFOLATE UA: Component Value Date/Time SPGRAVITYUA 1.019 01/07/2022 0411 PHUADIP 5.0 01/07/2022 0411 PROTEINUADIP Negative 01/07/2022 0411 GLUCOSEU 100 (A) 01/07/2022 0411 KETONESUA 40 (A) 01/07/2022 0411 UROBILIUADIP Normal 01/07/2022 0411 BLOODUADIP Negative 01/07/2022 0411 NITRATEUA Negative 01/07/2022 0411 LEUKOESTERUA Negative 01/07/2022 0411 WBCUA 107 (H) 08/16/2013 0950 BILIRUBINUA Negative 01/07/2022 0411 (May not represent most recent UA results. See eD-H labs for more details.) Tox: Urine drug screen: presumptive positive for tricyclics, ethanol, and amphetamines Ethanol level = 392 Acetaminophen level < 5 Salicylate level = 4 Rx Lvls: No results found for: LITHIUM, CARBAMAZEPIN, VALPROATE, LAMOTRIGINE, CLOZAPINE Pending Labs, Procedures, and studies at Discharge: None Discharge Disposition: home Primary Care Physician: Madhavi Smith APRN [phone] Special Physician Instructions: Please follow up with your PCP and take your medications as prescribed Special Medication Instructions/Considerations: 1) You were started on olanzapine (Zyprexa) 2.5 mg once nightly. Please note, this medication can lead to drowsiness. 2) You were continued on mirtazapine (Remeron) 20 mg once nightly for sleep and mood 3) You were continued on vilazodone (Viibryd) 40 mg once daily for depressed mood. 4) The following medication were discontinued: lamotrigine (Lamictal), buspirone (Buspar), hydroxyzine (Atarax), and zolpidem (Ambien) Special Instructions Provided to Aziza Tamez: Call your doctor, your local mental health center, or your local emergency room if you develop worsening symptoms of depression, anxiety, thoughts of harming yourself, thoughts of harming others, or any other decline in your overall condition. [facility] [place] Call your local community crisis line at: [place]: [facility] [phone] or Text VA to 163528 For further information for [facility] residents: [email or web address]-services/zov-sku-htkf National Suicide Prevention Hotline: To reach your mental health clinician or the outpatient Department of Psychiatry clinics: [phone] Activity level: no restrictions from psychiatry Diet: no restrictions from psychiatry Driving: do not drive if sedated by medications Medications have been reviewed with the patient and the patient understands the use and side effects of these medications as evidenced by discussions on interdisciplinary rounds. A copy of the AVS has been reviewed with, and given to, the patient. Discharge References/Attachments None Discharge Condition/Prognosis: Satisfactory condition. Prognosis is dependent on patient's participation in ongoing treatment and adherence with prescribed medications. Signed: Brandi Torres MD 01/22/2022 Associated attestation - Butch Jennings MD - 01/25/2022 8:13 AM EDT I have personally seen and examined the patient. The patient denies suicidal ideations or homicidalideations or paranoia. The patient is future oriented and has specific practical and behavioral goals upon leaving the hospital. Patient reported improved hopefulness and confidence in safety planning. She tolerated medication change. Alcohol Use Patient does not meet criteria for unhealthy alcohol use. Drug Use Disorder Pt does not meet criteria for substance use disorder Tobacco Use Patient is a non-smoker. The patient is ready for discharge with aftercare per AVS. Greater than 30 minutes was spent coordinating discharge for this patient and included [id number] and exam, explanation of after visit instructions and medications to the patient and necessary caregivers, documentation, and prescription management. Butch Jennings MD documented in this encounter Discharge Instructions * Discharge Instructions* Ceferino Choe RN - 01/19/2022 2:01 PM EDT Patient care management has coordinated the following appointments for you: [address] [address] Mental Health Prescriber & Therapist: Mehga Obrien APRN. Tele-health appointment scheduledfor 01/26/22 at 3:00 PM. PCP: Madhavi Smith APRN. In-office appointment scheduled with alternative provider Dr. Daniel Quinonez MD for 01/29/22 at 11:40 AM. Please arrive by 11:25 AM to register. Community Mental Health Resources [facility] [address] [place] [address] Emergency 14/03 Crisis Line: [phone] Community Peer and Support Services [facility] Resource [address] [address] Email: If you are experiencing a mental health crisis, please call / text, or chat at the [facility] emergency crisis line at [phone] / [email or web address], or go to your nearest hospital emergency room for immediate help. Inpatient Provider Contact Information: For questions regarding this document (including laboratory or other studies) or issues relating tothis hospitalization, please contact your patient care advocate, Ester Larios RN, through the [facility] Supervisor Inspection Room . Issues after hours and on weekends will be handled by the residential driver on-call who can be reached through the Department of Psychiatry by calling [phone] and following the appropriate prompts to connect to the construction job titles team. Medication Instructions Continue to take all of the medications as instructed. Any medication changes will be addressed at your next outpatient appointment with the individual who prescribes your medications. Advance Care Plan The patient has an appointed surrogate decision maker: Yes Name of surrogate decision maker: Josiane Alfonso (Friend) The patient has medical advance directives: Yes The patient has psychiatric advance directives: No The patient declines further information at this time. All eleven elements of the Transition Record have been reviewed with the patient. * Patient Instructions* Brandi Torres MD - 01/22/2022 2:05 PM EDT PATIENT DISCHARGE INSTRUCTIONS Principal diagnosis at discharge and reason for admission: Active Hospital Problems MDD (major depressive disorder), recurrent episode, severe Worsening depression over past 5 months with suicidal preparatory behavior over the past three months Severe protein-calorie malnutrition >5% weight loss in 1 month, Moderate subcutaneous fat loss and Moderate lean muscle loss is consistent with severe protein-calorie malnutrition in the setting socia/environmental factors (pt with AN exacerbated by COVID+ infection) (Jazmin, JPEN J Parenteral Enteral Nutr. 2012 December; 36(3): 273-83) Vital Signs: BP: 121/72, Heart Rate: 66, Temp: 36.3 ??C (97.3 ??F), Resp: 12, BMI (Calculated): 14.94 Height: 167.6 cm (5' 6) (01/18/22 174) Weight: 42 kg (92 lb 9.6 oz) (01/18/22 174) Operations, Tests, and Procedures with Results: None Important Lab Data: Psychiatry Labs: Preg: No results found for: HCGQUAL, HCGQUANT Heme: Lab Results Component Value Date WBC 7.2 01/18/2022 HGB 11.8 01/18/2022 HCT 34.7 (L) 01/18/2022 MCV 96.7 (H) 01/18/2022 PLATELET 626 (H) 01/18/2022 Chem: Lab Results Component Value Date NA 139 01/18/2022 K 3.9 01/18/2022 CL 105 01/18/2022 CO2 23 01/18/2022 BUN 17 01/18/2022 CREATININE 0.54 (L) 01/18/2022 GLUCOSE 92 01/18/2022 GLUCFASTING 119 (H) 08/15/2013 CALCIUM 9.5 01/18/2022 ESTGFR 101 01/18/2022 LFTs: Lab Results Component Value Date ALT 70 (H) 01/07/2022 AST Not Perf 01/07/2022 ALKPHOS 39 01/07/2022 BILITOT 0.2 01/07/2022 Coags: No results found for: PTT, PT, INR Thyroid: Lab Results Component Value Date TSH 1.94 01/17/2019 Lipids and HgbA1C: No results found for: CHLPL, HDL, CHOLHDL, LDLCHOL, LDLDIRECT, TRIG No results found for: HA1C Vit Lvls: No results found for: [id number], SFOLATE UA: Component Value Date/Time SPGRAVITYUA 1.019 01/07/2022 0411 PHUADIP 5.0 01/07/2022 0411 PROTEINUADIP Negative 01/07/2022 0411 GLUCOSEU 100 (A) 01/07/2022 0411 KETONESUA 40 (A) 01/07/2022 0411 UROBILIUADIP Normal 01/07/2022 0411 BLOODUADIP Negative 01/07/2022 0411 NITRATEUA Negative 01/07/2022 0411 LEUKOESTERUA Negative 01/07/2022 0411 WBCUA 107 (H) 08/16/2013 0950 BILIRUBINUA Negative 01/07/2022 0411 (May not represent most recent UA results. See eD-H labs for more details.) Tox: Urine drug screen: presumptive positive for tricyclics, ethanol, and amphetamines Ethanol level = 392 Acetaminophen level < 5 Salicylate level = 4 Rx Lvls: No results found for: LITHIUM, CARBAMAZEPIN, VALPROATE, LAMOTRIGINE, CLOZAPINE Pending Labs, Procedures, and studies at Discharge: None Discharge Disposition: home Primary Care Physician: Madhavi Smith APRN [phone] Special Physician Instructions: Please follow up with your PCP and take your medications as prescribed Special Medication Instructions/Considerations: 1) You were started on olanzapine (Zyprexa) 2.5 mg once nightly. Please note, this medication can lead to drowsiness. 2) You were continued on mirtazapine (Remeron) 20 mg once nightly for sleep and mood 3) You were continued on vilazodone (Viibryd) 40 mg once daily for depressed mood. 4) The following medication were discontinued: lamotrigine (Lamictal), buspirone (Buspar), hydroxyzine (Atarax), and zolpidem (Ambien) Special Instructions Provided to Aziza Tamez: Call your doctor, your local mental health center, or your local emergency room if you develop worsening symptoms of depression, anxiety, thoughts of harming yourself, thoughts of harming others, or any other decline in your overall condition. [facility] [place] Call your local community crisis line at: [place]: [facility] [phone] or Text [facility] to 151443 For further information for [facility] residents: [email or web address] National Suicide Prevention Hotline: To reach your mental health clinician or the outpatient Department of Psychiatry clinics: [phone] Activity level: no restrictions from psychiatry Diet: no restrictions from psychiatry Driving: do not drive if sedated by medications Medications have been reviewed with the patient and the patient understands the use and side effects of these medications as evidenced by discussions on interdisciplinary rounds. A copy of the AVS has been reviewed with, and given to, the patient. documented in this encounter Medications at Time of Discharge Medication Sig Dispensed Refills Start Date End Date busPIRone (Buspar) 30 mg tablet Bedtime 06/18/2021 OLANZapine (ZyPREXA) 2.5 mg Tablet Take 1 tablet by mouth nightly. 14 tablet 1 01/22/2022 vilazodone (Viibryd) 20 mg Tablet Take 2 tablets by mouth daily. 28 tablet 01/23/2022 cholecalciferol, Vitamin D3, 125 mcg (5,000 unit) Tablet Take 5,000 Units by mouth daily. b complex vitamins Capsule Take 1 capsule by mouth daily. mirtazapine (REMERON) 30 mg tabletIndications:osito or depressive disorder Take 1 tablet by mouth nightly. Indications: Major Depressive Disorder 30 tablet 0 08/21/2013 naproxen (Naprosyn) 250 mg Tablet Every 12 hours. 03/15/2018 09/06/2022 spironolactone (ALDACTONE) 50 mg TabletIndications:And rogenetic alopecia TAKE THREE TABLETS BY MOUTH EVERY DAY 180 tablet 3 12/14/2021 01/31/2022 documented as of this encounter Progress Notes * Jacque Rodriguez - 01/22/2022 9:43 AM EDT Inpatient Daily Group Note Group: Goals Attendance: Present Behavior: Conversational and Relevant Therapeutic Work Observed: Minimal Mood: Stable Notes: Discussed group expectations of attending group at the designated time as well as remaining in group for the full length. Examined unit details such as laundry, menu planning and maintaining clean living areas. Reviewed group norms; no food, no leaving for the bathroom and water only. Explained twice daily room checks and rationale for doing so. Patient goal: Go home today and take things as they come Jacque Rodriguez 01/22/2022 Inpatient Daily Group Note Group: Journaling Attendance: Present Behavior: Conversational, Relevant and Attentive Therapeutic Work Observed: Moderate Mood: Stable Notes: Examined the therapeutic and health benefits of journaling as well as methods for creating ajournal practice. Group spent time journaling with or without prompts and then discussed. Patient was engaged throughout and contributed with relevant and insightful comments related to self-compassion. Jacque Rodriguez 01/22/2022 Patient attended the following therapeutic activities: __Workshop x__ Walk __Exercise and Stretching Group __Pet Therapy __On unit activity Significant observations: Patient discussed plan for weekend and ideas for maintaining well-being. Jacque Rodriguez, * Flo Nagy S - 01/22/2022 8:27 AM EDT Psychiatry Inpatient - Progress Note 01/22/2022 ID: Aziza Tamez is a 61 y.o. female admitted on 01/18/2022??for pertinent psychiatric hx ofmajor depressive disorder, OFELIA and PTSD??complicated by multiple suicide attempts via overdose requiring hospitalization/ECT,??presenting after suicide attempt via overdose and cutting of wrists. Psychiatric admission day 4 3 s/p 12 days in ICU. Diagnosis: MDD (major depressive disorder), recurrent episode, severe Pertinent medical issues being addressed: mobility (resolved) Interval History: (1,1,4) Per RN report: -slept 8.25 hours -anxiety 5/10 for going home -depression 2/10 -no SI, HI, AVH -feeling stronger today and not using walker per trial Per patient report: -her mood is good -slept very well -still anxious about reintroduction to back home and her community -happy to not have to use the walker anymore and feeling stronger -cognizant about needing to reach out to others early if she feels she is going into state of depression. Understands needing early intervention that is comprised of talking to [place], daily check ins with friends, and more psychiatric/therapeutic support -Mentions she needs to watch her weight and gets the nutrients she needs Review of Systems: (0,1,2) CONST Denies fever CV RESP Denies SOB GI NEURO Denies MSK pain PSYCH See above. Physical Exam: (1,6,9) Vitals (24hr Range): Temp: [36.3 ??C (97.3 ??F)-36.5 ??C (97.7 ??F)] Resp: [12-16] Heart Rate: [66-77] BP: (118-121)/(60-72) SpO2: [99 %-100 %] Patient Vitals for the past 168 hrs: Weight 01/18/22 1746 42 kg (92 lb 9.6 oz) Musculoskeletal System: Ambulates independently without abnormal movements Mental Status Exam: ??? Appearance: Casually dressed, fair grooming, thin body habitus ??? Behavior: No psychomotor agitation or slowing, appropriate eye contact, cooperative with interview ??? Speech: Average rate, pitch, quantity and prosody. Volume appropriate for setting. ??? Language: Appropriate, non-profane; Sammarinese-speaking ??? Mood: good ??? Affect: Non-labile, average intensity, full range, congruent with mood. ??? Thought Process: Linear, logical, and goal-directed. ??? Associations: Tight and intact. ??? Thought Content: No delusions or paranoid ideas, no suicidal and no homicidal ideation ??? Perception: No audio, visual, or tactile hallucinations. ??? Orientation: Person, place, time/date and situation ??? Attention/Concentration: Intact to interview and discussion regarding care. ??? Cognition: Grossly intact ??? Memory: Remote and recent memory intact ??? Fund of Knowledge: Appears appropriate for level of education. ??? Insight: Good ??? Judgment: Fair Energy Suicide Risk Scale - Initial Assessment (01/18/22 1742): ?? Initial Suicide Screening Q1 Wish to be : Have you wished you were or wished you could go to sleep and not wake up?:yes Q2 Suicidal Thoughts: Have you actually had any thoughts of killing yourself?: yes Q3 Suicidal Thought Method: Have you been thinking about how you might do this?: yes Q4 Suicidal Intent without Specific Plan: Have you had these thoughts and had some intention of acting on them?: yes Q5 Suicide Intent with Specific Plan: Have you started to work out or worked out the details of howto kill yourself? Do you intend to carry out this plan?: yes Q6 Suicide Behavior (Lifetime): Have you ever done anything, started to do anything, or prepared todo anything to end your life?: yes Within the Past 3 Months?: yes Level of Risk (Calculated): High Risk ?? Energy Suicide Risk Scale - Daily Assessment: (most recent, 1000): ?? Suicide Daily Screening Suicidal Thoughts: Since you were last asked, have you had any actual thoughts of killing yourself?: No Suicide Behavior Question: Since you were last asked have you done anything, started to do anything, or prepared to do anything to end your life?: No Level of Risk (Calculated): Low Risk Current Medications: Scheduled: ??? mirtazapine 30 mg Oral Nightly ??? OLANZapine 2.5 mg Oral Nightly ??? vilazodone 40 mg Oral Daily PRN: acetaminophen, LORazepam, melatonin, polyethylene glycoL Labs: Last 24 Hours: No results found for this or any previous visit (from the past 24 hour(s)). Psychiatry Labs: Preg: No results found for: HCGQUAL, HCGQUANT Heme: No results found for: WBC, HGB, HCT, PLATELET, MCV, NEUTROABS No results found for: HA1C, SEDRATE Chem: No results found for: NA, K, CL, CO2, BUN, GLUCOSE, GLUCFASTING No results found for: CALCIUM, MAGNESIUM, PHOS LFTs: No results found for: ALT, AST, GGT, ALKPHOS, BILITOT, AMMONIA Coags: No results found for: PTT, PT, INR Thyroid: No results found for: TSH, [id number], TT4 Lipids and HgbA1C: No results found for: CHLPL, HDL, CHOLHDL, LDLCHOL, LDLDIRECT, TRIG No results found for: HA1C Vit Lvls: No results found for: [id number], SFOLATE UA: No results found for: GLUCOSEU, KETONESUA, PROTEINUADIP, BLOODUADIP, LEUKOESTERUA, NITRATEUA, WBCUA (May not represent most recent UA results. See eD-H labs for more details.) Tox: No results found for: ETHANOL, ACTMNPHEN, SALICYLATE, LEAD No results found for: UDAUSCREEN Rx Lvls: No results found for: LITHIUM, CARBAMAZEPIN, VALPROATE, LAMOTRIGINE, CLOZAPINE Assessment: Aziza SpainLucaHumberto is a 61 y.o. female??admitted on 01/18/2022??for with a pertinent psychiatric hx of major depressive disorder, OFELIA and PTSD complicated by multiple suicide attempts via overdose requiring hospitalization/ECT, presenting after suicide attempt via overdose and cutting of wrists. 01/22/2022 - No SI and developed robust safety plan. Improvement with insight and judgement since admission. She is forward thinking with strong ties to the community. She is safe and stable to be discharged. Current Suicide Assessment:??Decreased??relative to patient's baseline at admission given no current SI or plan. Compared to the general inpatient psychiatric population patient's risk is??elevated given prior suicide attempts including recent attempt requiring ICU admission. ??Risk mitigated by inpatient hospitalization, q15 min nursing checks, and medication management. Diagnosis: MDD (major depressive disorder), recurrent episode, severe Plan: #??MDD, severe, recurrent episodes ? Continue Mirtazapine 30mg qhs?? ? Continue??Viibryd 40mg daily ? Continue Zyprexa 2.5mg daily ? Continue Ativan .5mg qd prn for anxiety ? # Suicide Risk Mitigation? Low ligature criteria ? Q15 checks ?? #Mobility ? ??Continue trial w/o walker to reinforce strength and coordination before discharge ?? Disposition: Once stabilized, will discharge home with . Proposed post-discharge care will likely include??re-establishing follow-up care with existing providers. Existing providers can ?? #PRNS: ?Sleep: melatonin 3mg ?Anxiety: lorazepam 0.5mg?PainL tylenol 650mg ?GI: miralax ? Outpatient Care: Provider Name Date Contacted By Treatment Team Current Mental Health Prescriber Gurwinder Obrien, BREEDING TECHNICIAN 01/20/22 - left message Current Therapist Gurwinder Obrien APRN ??01/20/22 - left message PCP ??Madhavi Smith APRN ? Additional Information: Patient Instruction/Education Provided: Patient provided verbal instructions during rounds regarding the treatment plan. I have reviewed and agree with the multidisciplinary treatment plan. I certify that the patient requires inpatient care for psychiatric treatment for safety, stabilization, and any other therapeutic intervention that could conceivably improve the patient's condition, including medication management, group psychotherapy, establishing adequate outpatient care, and/or diagnostic study. Signed By: ISRA Denney 01/22/2022 Associated attestation - Butch Jennings MD - 01/22/2022 11:47 AM EDT Reviewed thoughtful note with med student. Information integrated into tx plan. Please see today's progress note. Butch Jennings MD * Annette Fox RN - 01/21/2022 9:11 PM EDT OUTCOME EVALUATION NOTE: OUTCOME SUMMARY: Upon interaction with patient, pt is pleasant with bright affect and easy to engage in conversation. Pt states she had a good day today and went to all the groups which she enjoys. Rated anxiety 2/10. Denies depression, SI, HI, AVH. Pt agreed she feels safe on unit and if this changes to notify nursing staff. Denies pain. Reported last bowel movement was today. Wounds from self cutting on bilateral wrists are healing well, open to air with netting covering, no signs of infection. Pt was asking what ointment can be applied to her wounds and if there is a covering she can use to protect her wounds from the sun when she is outside. Pt was encouraged to ask this in team meeting tomorrow. Pt states she is a little anxious with having to face people when she goes home, but states I'm ready to go home and hopes to do some gardening, see some friends, and go to [place] over the weekend. Pt states will be happy to see her and her dog. Pt is working on her Relapse Prevention Plan. Otherwise, pt is compliant with scheduled medications. Pt requested and received PRN melatonin and tylenol (taking tylenol prophylactically to prevent back spasms) with scheduled HS meds. Energy Suicide Severity Rating Scale: Initial Risk: High Risk (01/18/221741) Daily Risk: Low Risk (01/21/221999) The following nursing interventions and strategies were implemented to mitigate suicide risk: Full room search conducted Medication as needed Identify protective barriers Scheduled check in with nursing Patient to work on Relapse Prevention Plan Assist patient in developing a safe discharge plan Therapeutic communications/listening Positive reinforcement Ongoing safety measures include: Ligature resistant environment of care provided Every 15 minutes safety checks Twice daily environment of care safety sweeps and individual room checks Silverware counted Door to room remains open PLAN MOVING FORWARD: Monitor mood and behavior, administer meds as ordered, discharge planned for tomorrow INDIVIDUALIZED FALL PREVENTION INTERVENTIONS: Patient-specific fall risk factors per assessment: [current deficits]: Hospital environment, generalized weakness Assistance [level of assistance required for transfers and ambulation]: IND Supervision [direct monitoring required during toileting and ADLs]: IND Surveillance [continuous indirect monitoring]: Q15 minute checks, room near nurse station Patient-specific fall prevention interventions for sensory deficits provided, if applicable: [X] N/A CARE PLAN GOAL OUTCOME EVALUATION: * Flo Nagy S - 01/21/2022 11:22 AM EDT Psychiatry Inpatient - Progress Note 01/21/2022 ID: Aziza Tamez is a 61 y.o. female admitted on 01/18/2022 forpertinent psychiatric hx of major depressive disorder, OFELIA and PTSD??complicated by multiple suicide attempts via overdose requiring hospitalization/ECT,??presenting after suicide attempt via overdose and cutting of wrists. Psychiatric admission day 3 s/p 12 days in ICU. Diagnosis: MDD (major depressive disorder), recurrent episode, severe Pertinent medical issues being addressed: mobility Interval History: (1,1,4) Per RN report: -slept 8 hours with good quality -physically feels better -confident she does not need walker, but willing to use it if needed per PT -depression 10/01 -anxiety 01/29 -working with dietitan -no SI, HI, or AVH Per patient report: -mood is good -explains she is anxious returning home and having to explain to people where she has been -working with to develop safety plan -endorses that she is insightful about her stubbornness with getting help when she was depressed w/suicidal ideation -safety plan composition in progress Review of Systems: (0,1,2) CONST Denies fever CV RESP Denies SOB GI NEURO Denies MSK pain PSYCH See above. Physical Exam: (1,6,9) Vitals (24hr Range): Temp: [36.5 ??C (97.7 ??F)] Resp: [16] Heart Rate: [77] BP: (118)/(60) SpO2: [99 %] Patient Vitals for the past 168 hrs: Weight 01/18/22 1746 42 kg (92 lb 9.6 oz) Musculoskeletal System: Ambulating with walker Mental Status Exam: ??? Appearance: Casually dressed, fair grooming, with walker ??? Behavior: appropriate eye contact, cooperative with interview ??? Speech: Average rate, pitch, quantity and prosody. Volume appropriate for setting. ??? Language: Appropriate, non-profane; Sammarinese-speaking ??? Mood: good ??? Affect: Non-labile, average intensity, full range, congruent with mood. ??? Thought Process: Linear, logical, and goal-directed. ??? Associations: Intact ??? Thought Content: No delusions or paranoid ideas, no suicidal and no homicidal ideation ??? Perception: No audio or visual hallucinations. ??? Orientation: grossly intact by interview ??? Attention/Concentration: Intact to interview and discussion regarding care. ??? Cognition: Grossly intact ??? Memory: grossly intact by interview ??? Fund of Knowledge: Appears appropriate for level of education. ??? Insight: good ??? Judgment: Fair Energy Suicide Risk Scale - Initial Assessment (01/18/22 174): Initial Suicide Screening Q1 Wish to be : Have you wished you were or wished you could go to sleep and not wake up?:yes Q2 Suicidal Thoughts: Have you actually had any thoughts of killing yourself?: yes Q3 Suicidal Thought Method: Have you been thinking about how you might do this?: yes Q4 Suicidal Intent without Specific Plan: Have you had these thoughts and had some intention of acting on them?: yes Q5 Suicide Intent with Specific Plan: Have you started to work out or worked out the details of howto kill yourself? Do you intend to carry out this plan?: yes Q6 Suicide Behavior (Lifetime): Have you ever done anything, started to do anything, or prepared todo anything to end your life?: yes Within the Past 3 Months?: yes Level of Risk (Calculated): High Risk Energy Suicide Risk Scale - Daily Assessment: (most recent, 1000): Suicide Daily Screening Suicidal Thoughts: Since you were last asked, have you had any actual thoughts of killing yourself?: No Suicide Behavior Question: Since you were last asked have you done anything, started to do anything, or prepared to do anything to end your life?: No Level of Risk (Calculated): Low Risk Current Medications: Scheduled: ??? mirtazapine 30 mg Oral Nightly ??? OLANZapine 2.5 mg Oral Nightly ??? vilazodone 40 mg Oral Daily PRN: acetaminophen, LORazepam, melatonin, polyethylene glycoL Labs: Last 24 Hours: No results found for this or any previous visit (from the past 24 hour(s)). Psychiatry Labs: Preg: No results found for: HCGQUAL, HCGQUANT Heme: Lab Results Component Value Date WBC 7.2 01/18/2022 HGB 11.8 01/18/2022 HCT 34.7 (L) 01/18/2022 PLATELET 626 (H) 01/18/2022 MCV 96.7 (H) 01/18/2022 NEUTROABS 4.46 01/18/2022 No results found for: HA1C, SEDRATE Chem: Lab Results Component Value Date NA 139 01/18/2022 K 3.9 01/18/2022 CL 105 01/18/2022 CO2 23 01/18/2022 BUN 17 01/18/2022 GLUCOSE 92 01/18/2022 Lab Results Component Value Date CALCIUM 9.5 01/18/2022 MAGNESIUM 0.85 01/18/2022 PHOS 4.4 01/18/2022 LFTs: No results found for: ALT, AST, GGT, ALKPHOS, BILITOT, AMMONIA Coags: No results found for: PTT, PT, INR Thyroid: No results found for: TSH, R4DYORM, TT4 Lipids and HgbA1C: No results found for: CHLPL, HDL, CHOLHDL, LDLCHOL, LDLDIRECT, TRIG No results found for: HA1C Vit Lvls: No results found for: [id number], SFOLATE UA: No results found for: GLUCOSEU, KETONESUA, PROTEINUADIP, BLOODUADIP, LEUKOESTERUA, NITRATEUA, WBCUA (May not represent most recent UA results. See eD-H labs for more details.) Tox: No results found for: ETHANOL, ACTMNPHEN, SALICYLATE, LEAD No results found for: UDAUSCREEN Rx Lvls: No results found for: LITHIUM, CARBAMAZEPIN, VALPROATE, LAMOTRIGINE, CLOZAPINE Assessment: Aziza Tamez is a 61 y.o. female admitted on 01/18/2022 for with a pertinent psychiatric hx of major depressive disorder, OFELIA and PTSD complicated by multiple suicide attempts via overdose requiring hospitalization/ECT, presenting after suicide attempt via overdose and cutting of wrists. 01/21/22 - patient continues to express desire to complete group sessions and work on safety plan. Becoming more insightful into mental wellbeing and how she behaved during period with suicidal ideation. Progress will improved with dietitian referral given history of eating disorder, most likely anorexia nervosa per collateral from . Denies SI at this time and hopeful to make progress in thefuture. Still strongly established with current outpatient mental health providers. Current Suicide Assessment: Decreased relative to patient's baseline at admission given no current SI or plan. Compared to the general inpatient psychiatric population patient's risk is elevated given prior suicide attempts including recent attempt requiring ICU admission. Risk mitigated by inpatient hospitalization, q 15 min nursing checks, and medication management. Diagnosis: MDD (major depressive disorder), recurrent episodes, severe Plan: #??MDD, severe, recurrent episodes ? Continue Mirtazapine 30mg qhs?? ? Continue??Viibyrd 40mg daily ? Continue Zyprexa 2.5mg daily ? Continue Ativan .5mg qd prn for anxiety ? # Suicide Risk Mitigation? Low ligature criteria ? Q15 checks ?? #Mobility ? ??Will contact PT to reassess necessity of walker Disposition: Once stabilized, will discharge home with . Proposed post-discharge care will likely include??re-establishing follow-up care with existing providers. ?? #PRNS: ?Sleep: melatonin 3mg ?Anxiety: lorazepam 0.5mg?PainL tylenol 650mg ?GI: miralax Outpatient Care: Provider Name Date Contacted By Treatment Team Current Mental Health Prescriber Gurwinder Obrien APRN 01/20/22 - left message Current Therapist Gurwinder Obrien, MATHEUS 01/20/22 - left message PCP Madhavi Smith APRN ?? Additional Information: Patient Instruction/Education Provided: Patient provided verbal instructions during rounds regarding the treatment plan. I have reviewed and agree with the multidisciplinary treatment plan. I certify that the patient requires inpatient care for psychiatric treatment for safety, stabilization, and any other therapeutic intervention that could conceivably improve the patient's condition, including medication management, group psychotherapy, establishing adequate outpatient care, and/or diagnostic study. Signed By: Flo Nagy MS3 01/21/2022 Associated attestation - Butch Jennings MD - 01/21/2022 2:46 PM EDT Reviewed thoughtful note with med student. Information integrated into tx plan. Please see today's progress note. Butch Jennings MD * Wanda Johnson RN - 01/21/2022 9:59 AM EDT OUTCOME EVALUATION NOTE: OUTCOME SUMMARY: Patient states she slept well last night. She is pleasant on contact and easy to engage in conversation. She denies thoughts of wanting to harm herself or others. She rates her depression as 2/10 andanxiety as 6/10. She showered this am. Energy Suicide Severity Rating Scale: Initial Risk: High Risk (01/18/22 1742) Daily Risk: Low Risk (01/21/22 0820) The following nursing interventions and strategies were implemented to mitigate suicide risk: Distract with activities Groups for skill building Ongoing safety measures include: Ligature resistant environment of care provided Every 15 minutes safety checks Twice daily environment of care safety sweeps and individual room checks Silverware counted Door to room remains open PLAN MOVING FORWARD: Groups to increase coping skills. Monitor mood and behavior on the unit. D/C planned for tomorrow. INDIVIDUALIZED FALL PREVENTION INTERVENTIONS: Medium fall risk Patient-specific fall risk factors per assessment: [current deficits]: Medical issue, assistive device Assistance [level of assistance required for transfers and ambulation]: Ambulates independently with a walker Supervision [direct monitoring required during toileting and ADLs]: independent Surveillance [continuous indirect monitoring]: 15 minute safety checks, escort to groups. Patient-specific fall prevention interventions for sensory deficits provided, if applicable: [X] N/A CPG GOAL OUTCOME EVALUATION: * Jacque Rodriguez - 01/21/2022 9:47 AM EDT Inpatient Daily Group Note Group: Goals Notes: Patient was preoccupied during group. Jacque Rodriguez 01/21/2022 Inpatient Daily Group Note Group: Values Discussion Attendance: Present Behavior: Conversational, Relevant and Insightful Therapeutic Work Observed: Moderate Mood: Stable Notes: Utilized the values discussion from the Happiness Track as well as values card to evaluate individual values and how they can lead us to a rich, full, meaningful life. Patient was fully engaged throughout, contributed with insightful comments related to values and action steps for moving in the direction of their values. Jacque Rodriguez 01/21/2022 Patient attended the following therapeutic activities: x__Workshop __ Walk __Exercise and Stretching Group __Pet Therapy __On unit activity Significant observations: Jacque Rodriguez MS * Brandi Torres MD - 01/21/2022 7:29 AM EDT Psychiatry Inpatient - Progress Note 01/21/2022 ID: Aziza Tamez is a 61 y.o. female admitted on 01/18/2022 forpertinent psychiatric hx of major depressive disorder, OFELIA and PTSD complicated by multiple suicide attempts via overdose requiring hospitalization/ECT, presenting after suicide attempt via overdose and cutting of wrists. Hospital day 3. Diagnosis: MDD (major depressive disorder), recurrent episode, severe Pertinent medical issues being addressed: unsteady gait Interval History: (1,1,4) Per nursing report, the patient slept 8 hours last night. She rates depression 2/10 and anxiety 2/10 in severity. The patient notes that she does not feel as if she needs the walker and she does not use a walker at home. Aziza states she slept well last night and she feels physically well. She is eager to return home however, she is also anxious given she left in not good circumstances. She has been working on her safety plan and what her early warning signs are for depression and what she can do to reach out to others in those moments. She notes a good support system but is also concerned about what people will think of her when she returns home/what she will say to them. She denies any SI and has been participating in group therapy sessions. Review of Systems: (0,1,2) CONST CV RESP GI NEURO No headache MS + bilateral leg pain PSYCH See above Other Suicide Risk Factors on Day of Admission: Enduring Factors: history of substance abuse, chronic mental health problems, history of previous suicide attempts and history of trauma Dynamic Factors: depressive symptoms, recent substance abuse, rehearsal of a suicide plan/Preparatory behavior and sense of hopelessness Protective Factors: family and community support, engaged in medical and/or mental health care, effective coping skills and future orientation Access to Firearms: No Physical Exam: (1,6,9) Vitals (24hr Range): Temp: [36.7 ??C (98.1 ??F)] Resp: [16] Heart Rate: [72] BP: (117)/(72) SpO2: [99 %] Patient Vitals for the past 168 hrs: Weight 01/18/221745 42 kg (92 lb 9.6 oz) Musculoskeletal System: no atrophy, no abnormal movements and no stiffness, uses a walker to ambulate Mental Status Exam: ?? Appearance: age appropriate, casually dressed and well groomed ?? Behavior: cooperative with the interview, calm and good eye contact ?? Speech: normal pitch, normal volume, normal rate and normal rhythm ?? Language: fluent in bolivian and without paraphasic errors ?? Mood: Good ?? Affect: bright, full, anxious and mood-congruent ?? Thought Process: linear, logical and normal use of abstraction ?? Associations: intact ?? Thought Content: denied homicidal ideation, denied suicidal ideation, no bizarre delusions and no paranoid delusions ?? Perception: not observed responding to internal stimuli ?? Orientation: grossly intact by interview ?? Attention/Concentration: able to sustain focus, able to resist distraction and able to attend interview ?? Cognition: grossly intact by interview ?? Memory: recent and remote memory grossly intact ?? Fund of Knowledge: appropriate for age and level of functioning ?? Insight: fair ?? Judgment: fair Energy Suicide Risk Scale - Initial Assessment: Q1 Wish to be : Have you wished you were or wished you could go to sleep and not wake up?:yes (01/18/221741) Q2 Suicidal Thoughts: Have you actually had any thoughts of killing yourself?: yes (01/18/221741) Q3 Suicidal Thought Method: Have you been thinking about how you might do this?: yes (01/18/221741) Q4 Suicidal Intent without Specific Plan: Have you had these thoughts and had some intention of acting on them?: yes (01/18/221741) Q5 Suicide Intent with Specific Plan: Have you started to work out or worked out the details of howto kill yourself? Do you intend to carry out this plan?: yes (01/18/221741) Q6 Suicide Behavior (Lifetime): Have you ever done anything, started to do anything, or prepared todo anything to end your life?: yes (01/18/221741) Within the Past 3 Months?: yes (01/18/221741) Energy Suicide Risk Scale - Daily Assessment (most recently completed): Suicidal Thoughts: Since you were last asked, have you had any actual thoughts of killing yourself?: No (01/20/222099) Suicide Behavior Question: Since you were last asked have you done anything, started to do anything, or prepared to do anything to end your life?: No (01/20/222099) Current Medications: Scheduled: ??? mirtazapine 30 mg Oral Nightly ??? OLANZapine 2.5 mg Oral Nightly ??? vilazodone 40 mg Oral Daily PRN: acetaminophen, LORazepam, melatonin, polyethylene glycoL Labs: Psychiatry Labs Preg: No results found for: HCGQUAL, HCGQUANT Heme: Lab Results Component Value Date WBC 7.2 01/18/2022 HGB 11.8 01/18/2022 HCT 34.7 (L) 01/18/2022 PLATELET 626 (H) 01/18/2022 MCV 96.7 (H) 01/18/2022 NEUTROABS 4.46 01/18/2022 No results found for: HA1C, SEDRATE Chem: Lab Results Component Value Date NA 139 01/18/2022 K 3.9 01/18/2022 CL 105 01/18/2022 CO2 23 01/18/2022 BUN 17 01/18/2022 GLUCOSE 92 01/18/2022 Lab Results Component Value Date CALCIUM 9.5 01/18/2022 MAGNESIUM 0.85 01/18/2022 PHOS 4.4 01/18/2022 LFTs: No results found for: ALT, AST, GGT, ALKPHOS, BILITOT, AMMONIA Coags: No results found for: PTT, PT, INR Thyroid: No results found for: TSH, A4PLDKG, TT4 Lipids and HgbA1C: No results found for: CHLPL, HDL, CHOLHDL, LDLCHOL, LDLDIRECT, TRIG No results found for: HA1C Vit Lvls: No results found for: [id number], SFOLATE UA: No results found for: GLUCOSEU, KETONESUA, PROTEINUADIP, BLOODUADIP, LEUKOESTERUA, NITRATEUA, WBCUA (May not represent most recent UA results. See eD-H labs for more details.) Tox: No results found for: ETHANOL, ACTMNPHEN, SALICYLATE, LEAD No results found for: UDAUSCREEN Rx Lvls: No results found for: LITHIUM, CARBAMAZEPIN, VALPROATE, LAMOTRIGINE, CLOZAPINE Assessment: (including Suicide Risk Assessment) Aziza Tamez is a 61 y.o. female admitted on 01/18/2022 for with a pertinent psychiatric hx of major depressive disorder, OFELIA and PTSD complicated by multiple suicide attempts via overdose requiring hospitalization/ECT, presenting after suicide attempt via overdose and cutting of wrists. 01/21/22: Aziza continues to be future oriented and denies SI, expressing a positive outlook and motivated attitude to improve her safety plan and coping mechanisms. She will discharge tomorrow and we will discuss the final edits to her safety plan later today or on rounds tomorrow. No medication changes. Current Suicide Assessment: Low relative to patient's baseline given no current SI or plam. Compared to the general inpatient psychiatric population patient's risk is elevated given prior suicide attempts including recent attempt requiring ICU admission. Risk mitigated by inpatient hospitalization,q 15 min nursing checks, and medication management. Diagnosis: MDD (major depressive disorder), recurrent episode, severe Plan: #??MDD, Severe, Recurrent features. ? Continue Mirtazapine 30mg qhs ? Continue Viibyrd 40mg daily ? Continue Zyprexa 2.5mg daily ? Continue Ativan .5mg qd prn for anxiety ?? # Suicide Risk Mitigation? Low ligature criteria ? Q15 checks ?? Disposition: Estimated length of time needed for hospital stay is??5??days. Proposed post-discharge care will likely include??re-establishing follow-up care with existing providers. ?? #PRNS: Sleep: melatonin 3mg Anxiety: lorazepam 0.5mg PainL tylenol 650mg GI: miralax Outpatient Care: Provider Name Date Contacted By Treatment Team Current Mental Health Prescriber None Current Therapist PCP Madhavi Smith APRN Patient Instruction/Education Provided: Patient provided verbal instructions during rounds regarding the treatment plan. I have reviewed and agree with the multidisciplinary treatment plan. I certify that the patient requires inpatient care for psychiatric treatment for safety, stabilization, and any other therapeutic intervention that could conceivably improve the patient's condition, including medication management, group psychotherapy, establishing adequate outpatient care, and/or diagnostic study. Signed By: Brandi Torres MD 01/21/2022 Associated attestation - Butch Jennings MD - 01/21/2022 11:36 AM EDT I have seen the patient and reviewed the resident's above history and I agree with the details as written. The assessment and plan were formulated in discussion with me and I agree with them as documented. Major issues addressed: future oriented but some worries about ability to carry through with safetyplan. Tolerating medication. BP 118/60 (Patient Position: Sitting) Pulse 77 Temp 36.5 ??C (97.7 ??F) (Oral) Resp 16 Ht 167.6 cm (5' 6) Wt 42 kg (92 lb 9.6 oz) LMP 09/30/2013 SpO2 99% BMI 14.95 kg/m?? Plan: MDD (major depressive disorder), recurrent episode, severe No change to med or milieu therapy plan. Observe for safety. Time Study Technologist on safety planning. Coordinate with family and outpt providers on safety planning. I certify that the patient requires: [X] inpatient care for psychiatric treatment, that could be reasonably expected to improve the patient's condition and/or diagnostic study. Butch Jennings MD * Annette Fox RN - 01/20/2022 9:39 PM EDT OUTCOME EVALUATION NOTE: OUTCOME SUMMARY: Pt visible in room at start of shift. Upon interaction with patient, pt is calm and pleasant with bright affect. Pt is easy to engage in conversation. Rated anxiety 5/10, depression 2/10. Denies SI, HI, AVH. Pt agreed she feels safe on unit and if this changes to notify nursing staff. Endorsing 2/10 bilateral leg cramps, pt requested and received PRN tylenol with HS. Pt reported last bowel movement was today. Healing wounds on bilateral wrists that are scabbed over with no signs of infection ordrainage, wounds open to air. Otherwise, pt is compliant with scheduled medications. Pt requested and received PRN melatonin. Energy Suicide Severity Rating Scale: Initial Risk: High Risk (01/18/22 1742) Daily Risk: Low Risk (01/20/22 2100) The following nursing interventions and strategies were implemented to mitigate suicide risk: Full room search conducted Medication as needed Identify protective barriers Scheduled check in with nursing Therapeutic communications/listening Positive reinforcement Ongoing safety measures include: Ligature resistant environment of care provided Every 15 minutes safety checks Twice daily environment of care safety sweeps and individual room checks Silverware counted Door to room remains open PLAN MOVING FORWARD: Monitor mood and behavior, administer meds as ordered, discharge planning INDIVIDUALIZED FALL PREVENTION INTERVENTIONS: Patient-specific fall risk factors per assessment: [current deficits]: Hospital environment, med side effects, use of walker Assistance [level of assistance required for transfers and ambulation]: IND with walker Supervision [direct monitoring required during toileting and ADLs]: IND Surveillance [continuous indirect monitoring]: Q15 minute checks, room near nurse station Patient-specific fall prevention interventions for sensory deficits provided, if applicable: [X] N/A CARE PLAN GOAL OUTCOME EVALUATION: * Flo Nagy - 01/20/2022 1:30 PM EDT BRIEF PROGRESS NOTE Per Tunde, : - he is open and agrees to safety planning - locked away medications and firearms at home, some household items still acessible, such as: knives, scissors, table saw, etc. - describes the 2 major warning signs are her eating and sleeping habits. Mostly affective by COVIDdiagnosis - states Aziza has a history of being selective with food for 30 years and resisted fattening foods. Bread is particularly triggering. -states that he and therapist noticed suicidal ideation and tried to get Aziza to the [facility] ER but she wouldn't go -dispenses her medications at home -can be available for potential discharge Tuesday (01/22) after last group session * Brandi Torres MD - 01/20/2022 12:09 PM EDT Psychiatry Inpatient - Progress Note 01/20/2022 ID: Aziza Tamez is a 61 y.o. female admitted on 01/18/2022 forpertinent psychiatric hx of major depressive disorder, OFELIA and PTSD complicated by multiple suicide attempts via overdose requiring hospitalization/ECT, presenting after suicide attempt via overdose and cutting of wrists. Hospital day 2. Diagnosis: MDD (major depressive disorder), recurrent episode, severe Pertinent medical issues being addressed: unsteady gait Interval History: (1,,4) Per nursing report, the patient slept 7 hours last night. She rates depression 4/10 and anxiety 4/10 in severity. She denies SI or AVH. Aziza states she feels good this morning and that she had a good nights' sleep last night. Her foot pain was bothering her the past few days and since taking tylenol more frequently, her foot pain hasimproved. She is concerned about leaving the inpatient unit too early given how she was at her lowest point in depression before admission, and she has not felt this badly for 20+ years. She states she wants to continue with group therapy over the next few days in order to fill in the gaps of her current coping skills. She states she has a large support system and she feels comfortable reaching out to them for help if she needs it. When asked about what she would do if she were ever this depressed again, she states she is unsure. She denies any SI at this time. Review of Systems: (0,1,2) CONST CV RESP GI NEURO No headache MS + bilateral leg pain PSYCH See above Other Suicide Risk Factors on Day of Admission: Enduring Factors: history of substance abuse, chronic mental health problems, history of previous suicide attempts and history of trauma Dynamic Factors: depressive symptoms, recent substance abuse, rehearsal of a suicide plan/Preparatory behavior and sense of hopelessness Protective Factors: family and community support, engaged in medical and/or mental health care, effective coping skills and future orientation Access to Firearms: No Physical Exam: (1,6,9) Vitals (24hr Range): Temp: [36.7 ??C (98.1 ??F)] Resp: [16] Heart Rate: [72] BP: (117)/(72) SpO2: [99 %] Patient Vitals for the past 168 hrs: Weight 01/18/221745 42 kg (92 lb 9.6 oz) Musculoskeletal System: no atrophy, no abnormal movements and no stiffness, uses a walker to ambulate Mental Status Exam: ?? Appearance: age appropriate, casually dressed and well groomed ?? Behavior: cooperative with the interview, calm and good eye contact ?? Speech: normal pitch, normal volume, normal rate and normal rhythm ?? Language: fluent in bolivian and without paraphasic errors ?? Mood: Good... well-rested ?? Affect: bright, full, anxious and mood-congruent ?? Thought Process: linear, logical and normal use of abstraction ?? Associations: intact ?? Thought Content: denied homicidal ideation, denied suicidal ideation, no bizarre delusions and no paranoid delusions ?? Perception: not observed responding to internal stimuli ?? Orientation: grossly intact by interview ?? Attention/Concentration: able to sustain focus, able to resist distraction and able to attend interview ?? Cognition: grossly intact by interview ?? Memory: recent and remote memory grossly intact ?? Fund of Knowledge: appropriate for age and level of functioning ?? Insight: fair ?? Judgment: fair Energy Suicide Risk Scale - Initial Assessment: Q1 Wish to be : Have you wished you were or wished you could go to sleep and not wake up?:yes (01/18/221741) Q2 Suicidal Thoughts: Have you actually had any thoughts of killing yourself?: yes (01/18/221741) Q3 Suicidal Thought Method: Have you been thinking about how you might do this?: yes (01/18/221741) Q4 Suicidal Intent without Specific Plan: Have you had these thoughts and had some intention of acting on them?: yes (01/18/221741) Q5 Suicide Intent with Specific Plan: Have you started to work out or worked out the details of howto kill yourself? Do you intend to carry out this plan?: yes (01/18/221741) Q6 Suicide Behavior (Lifetime): Have you ever done anything, started to do anything, or prepared todo anything to end your life?: yes (01/18/221741) Within the Past 3 Months?: yes (01/18/221741) Energy Suicide Risk Scale - Daily Assessment (most recently completed): Suicidal Thoughts: Since you were last asked, have you had any actual thoughts of killing yourself?: No (01/20/22 1000) Suicide Behavior Question: Since you were last asked have you done anything, started to do anything, or prepared to do anything to end your life?: No (01/20/22 1000) Current Medications: Scheduled: ??? mirtazapine 30 mg Oral Nightly ??? OLANZapine 2.5 mg Oral Nightly ??? vilazodone 40 mg Oral Daily PRN: acetaminophen, LORazepam, melatonin, polyethylene glycoL Labs: Psychiatry Labs Preg: No results found for: HCGQUAL, HCGQUANT Heme: Lab Results Component Value Date WBC 7.2 01/18/2022 HGB 11.8 01/18/2022 HCT 34.7 (L) 01/18/2022 PLATELET 626 (H) 01/18/2022 MCV 96.7 (H) 01/18/2022 NEUTROABS 4.46 01/18/2022 No results found for: HA1C, SEDRATE Chem: Lab Results Component Value Date NA 139 01/18/2022 K 3.9 01/18/2022 CL 105 01/18/2022 CO2 23 01/18/2022 BUN 17 01/18/2022 GLUCOSE 92 01/18/2022 Lab Results Component Value Date CALCIUM 9.5 01/18/2022 MAGNESIUM 0.85 01/18/2022 PHOS 4.4 01/18/2022 LFTs: No results found for: ALT, AST, GGT, ALKPHOS, BILITOT, AMMONIA Coags: No results found for: PTT, PT, INR Thyroid: No results found for: TSH, O2NCVBK, TT4 Lipids and HgbA1C: No results found for: CHLPL, HDL, CHOLHDL, LDLCHOL, LDLDIRECT, TRIG No results found for: HA1C Vit Lvls: No results found for: [id number], SFOLATE UA: No results found for: GLUCOSEU, KETONESUA, PROTEINUADIP, BLOODUADIP, LEUKOESTERUA, NITRATEUA, WBCUA (May not represent most recent UA results. See eD-H labs for more details.) Tox: No results found for: ETHANOL, ACTMNPHEN, SALICYLATE, LEAD No results found for: UDAUSCREEN Rx Lvls: No results found for: LITHIUM, CARBAMAZEPIN, VALPROATE, LAMOTRIGINE, CLOZAPINE Assessment: (including Suicide Risk Assessment) Aziza Tamez is a 61 y.o. female admitted on 01/18/2022 for with a pertinent psychiatric hx of major depressive disorder, OFELIA and PTSD complicated by multiple suicide attempts via overdose requiring hospitalization/ECT, presenting after suicide attempt via overdose and cutting of wrists. 01/20/22: The patient continues to express motivation to attend groups and improve in her own coping skills while admitted. She has a strong social support system however, we need to continue to discuss how she can engage with this support system after discharge and further safety planning given her severe suicide attempt. She is tolerating her current medication regimen well and no changes will bemade today. She agrees to staying until Tuesday afternoon in order to maximize her time in group therapy. Nutrition was also consulted given her low BMI and desire to increase her weight. Current Suicide Assessment: Low relative to patient's baseline given no current SI or plam. Compared to the general inpatient psychiatric population patient's risk is elevated given prior suicide attempts including recent attempt requiring ICU admission. Risk mitigated by inpatient hospitalization,q 15 min nursing checks, and medication management. Diagnosis: MDD (major depressive disorder), recurrent episode, severe Plan: #??MDD, Severe, Recurrent features. ? Continue Mirtazapine 30mg qhs ? Continue Viibyrd 40mg daily ? Continue Zyprexa 2.5mg daily ? Continue Ativan .5mg qd prn for anxiety ?? # Suicide Risk Mitigation? Low ligature criteria ? Q15 checks ?? Disposition: Estimated length of time needed for hospital stay is??5??days. Proposed post-discharge care will likely include??re-establishing follow-up care with existing providers. ?? #PRNS: Sleep: melatonin 3mg Anxiety: lorazepam 0.5mg PainL tylenol 650mg GI: miralax Outpatient Care: Provider Name Date Contacted By Treatment Team Current Mental Health Prescriber Current Therapist PCP Madhavi Smith APRN Patient Instruction/Education Provided: Patient provided verbal instructions during rounds regarding the treatment plan. I have reviewed and agree with the multidisciplinary treatment plan. I certify that the patient requires inpatient care for psychiatric treatment for safety, stabilization, and any other therapeutic intervention that could conceivably improve the patient's condition, including medication management, group psychotherapy, establishing adequate outpatient care, and/or diagnostic study. Signed By: Brandi Torres MD 01/20/2022 Associated attestation - Butch Jennings MD - 01/20/2022 1:01 PM EDT I have seen the patient and reviewed the resident's above history and I agree with the details as written. The assessment and plan were formulated in discussion with me and I agree with them as documented. Major issues addressed: improving mood but lingering fears of being able to contend with declining mood and suicidal thoughts. Tolerating medication. BP 117/72 (BP Location (NBP): Left arm, Patient Position: Sitting) Pulse 72 Temp 36.7 ??C (98.1??F) (Oral) Resp 16 Ht 167.6 cm (5' 6) Wt 42 kg (92 lb 9.6 oz) LMP 09/30/2013 SpO2 99% BMI 14.95 kg/m?? Plan: MDD (major depressive disorder), recurrent episode, severe Continue current me plan. Time Study Technologist on distress tolerance and safety planning. Observe for safety. Coordinate with outpatient providers and . I certify that the patient requires: [X] inpatient care for psychiatric treatment, that could be reasonably expected to improve the patient's condition and/or diagnostic study. Butch Jennings MD * Nataly Hendrix RN - 01/20/2022 10:04 AM EDT OUTCOME EVALUATION NOTE: OUTCOME SUMMARY: Aziza reports sleeping great last PM. She would like to stay in-pt a while longer, stating she needs a refresher on her coping skills. Aziza has wounds to both wrists that are healing well- open to air and scabbed over with no drainage. She rates her depression level today as 3/10, anxiety 3/10, and denies SI. She reports foot pain (from deconditioning) / is improving with increased exercise. She is walking with a walker and is steady on her feet. Tylenol 650 mg was given with benefit . She is planning to attend groups. She is pleasant, bright and motivated to get well. Energy Suicide Severity Rating Scale: Initial Risk: High Risk (01/18/22 1742) Daily Risk: Low Risk (01/20/22 1000) The following nursing interventions and strategies were implemented to mitigate suicide risk: Distract with activities Groups for skill building Reviewed Values with patient Scheduled check in with nursing Therapeutic communications/listening Positive reinforcement Ongoing safety measures include: Ligature resistant environment of care provided Every 15 minutes safety checks Twice daily environment of care safety sweeps and individual room checks Silverware counted Door to room remains open PLAN MOVING FORWARD: meds as ordered, group therapy, assess and monitor wounds, discharge planning. INDIVIDUALIZED FALL PREVENTION INTERVENTIONS: Patient-specific fall risk factors per assessment: [current deficits]: deconditioned Assistance [level of assistance required for transfers and ambulation]: Independent with walker Supervision [direct monitoring required during toileting and ADLs]: Esc to groups Surveillance [continuous indirect monitoring]: q 15 minute checks Patient-specific fall prevention interventions for sensory deficits provided, if applicable: [X] No CPG GOAL OUTCOME EVALUATION: Aziza is motivated for tx. * aJcque Rodriguez - 01/20/2022 9:46 AM EDT Inpatient Daily Group Note Group: Goals Attendance: Present Behavior: Conversational and Relevant Therapeutic Work Observed: Minimal Mood: Stable Notes: Discussed group expectations of attending group at the designated time as well as remaining in group for the full length. Examined unit details such as laundry, menu planning and maintaining clean living areas. Reviewed group norms; no food, no leaving for the bathroom and water only. Explained twice daily room checks and rationale for doing so. Patient goal: Go to the groups I signed up for Jacque Rodriguez 01/20/2022 Inpatient Daily Group Note Group: Challenging Anxious Thoughts Attendance: Present Behavior: Conversational, Insightful and Attentive Therapeutic Work Observed: Moderate Mood: Stable Notes: Examined the CBT model along with the cognitive triangle. Finished with practice of grounding techniques for management of anxiety/panic. Patient engaged in discussion with insightful examples and was open to challenging anxious thoughts. Jacque Rodriguez 01/20/2022 Inpatient Daily Group Note Group: Stress Management Attendance: Present Behavior: Conversational and Relevant Therapeutic Work Observed: Moderate Mood: Stable Notes: Provided psycho-education regarding stress and how it affects the physical, emotional and behavioral aspects of individuals. Transitioned into discussing risk and protective factors related tostress. Patient was present and engaged; contributed with ideas for stress management and personal experiences. Jaqcue Rodriguez 01/20/2022 Patient attended the following therapeutic activities: _x_Workshop __ Walk __Exercise and Stretching Group __Pet Therapy __On unit activity Significant observations: Jacque Rodriguez, MS * Kalia Wynne, RD - 01/20/2022 9:18 AM EDT Nutrition Consult Note Aziza Tamez is a 61 y.o. female with PMH of MDD, OFELIA, migraines who presents with overdosein attempted suicide. Reason for intervention: Education, Low BMI and interested in gaining weight in a healthy way Nutrition Recommendations: Encourage good PO intake. Discussed goal of 4 small meals daily with patient. Fat and protein source at each meal. Order snacks, nutrient-dense foods and condiments as discussed for increased caloric intake- pt likes peanut butter, hummus, cream cheese, guacamole. Ensure Enlive chocolate and vanilla TID. Lactaid milk with meals + chocolate syrup. Recommend daily MVI with minerals for additional nutrition support. Monitor weights daily and trend. Recommend outpatient RD follow-up. I was able to discuss plan with provider Brandi Torres MD. . Active Orders Diet Regular diet Frequency: Effective Now Number of Occurrences: Until Specified Lab Results Component Value Date NA 139 01/18/2022 K 3.9 01/18/2022 CL 105 01/18/2022 CO2 23 01/18/2022 BUN 17 01/18/2022 CREATININE 0.54 (L) 01/18/2022 ESTGFR 101 01/18/2022 MAGNESIUM 0.85 01/18/2022 CALCIUM 9.5 01/18/2022 PHOS 4.4 01/18/2022 AST Not Perf 01/07/2022 ALT 70 (H) 01/07/2022 ALKPHOS 39 01/07/2022 BILITOT 0.2 01/07/2022 No results found for: POCGLU Skin Status: Shift Pressure Injury Prevention Occiput: No Injury Thoracic Spine: No Injury Sacral: No Injury Ischial - left: No Injury Ischial - right: No Injury Heel - left: No Injury Heel - right: No Injury Elbow - left: No Injury Elbow - right: No Injury Device Sites: no devices Relevant medications: noted Last Bowel Movement: 01/19/22 Admit Weight: 42 kg Estimated body mass index is 14.95 kg/m?? as calculated from the following: Height as of this encounter: 167.6 cm (5' 6). Weight as of this encounter: 42 kg (92 lb 9.6 oz). [place] Body Weight: 59kg Usual Body Weight: 100-105lbs per pt 01/20 10% wt loss x 11 days- clinically significant Wt Readings from Last 10 Encounters: 01/18/22 42 kg (92 lb 9.6 oz) 01/16/22 42.6 kg (93 lb 14.4 oz) 01/15/22 45.4 kg (100 lb) 01/07/22 46.8 kg (103 lb 2.8 oz) 11/20/21 44.5 kg (98 lb) 03/15/18 56.7 kg (125 lb) 10/16/15 54.9 kg (121 lb) 09/30/15 53.5 kg (118 lb) 07/12/12 55.3 kg (122 lb) 07/11/12 55.3 kg (122 lb) Assessment: Estimated needs: Calories: 4440-2154 (30-35 kcal/kg)- for weight gain, start slow given risk for refeeding Protein: 42 grams (1g/kg) Nutrition Focused Physical Exam (NFPE): Performed on 01/20. Subcutaneous fat loss at Orbital region: Moderate Upper arm region (triceps/biceps): Severe Thoracic and lumbar region (ribs, lower back and maxillary line): Moderate Lean muscle loss to Orthodoxy region (temporalis muscle): Severe Clavicle bone region (pectoralis major): Severe Dorsal hand (interosseous muscle): Moderate Shoulder (deltoid): Moderate Scapular bone region (latissimus dorsi, trapezius muscles): Moderate Thigh region (quadriceps muscle): Moderate Posterior calf region (gastrocnemius muscle): Moderate Fluid accumulation: Not assessed Nutrition intake and intake history/Interview: Met with Aziza this afternoon to discuss healthy weight gain strategies. Aziza confides that she has had anorexia nervosa for 25 years. She often eats only a handful of rotating foods repetitively and reports that she cooks from scratch and has a garden.Aziza frequently spoke about healthy and organic foods. Aziza tells me her eating habits had improved and she felt she was eating healthy and weighed her most (105lbs) until she was infected withCOVID in September at which point she lost her sense of taste and had a relapse. Following COVID+,she ate only bran cereal for breakfast and scrambled eggs for dinner for 2 weeks (she reports thesewere the only foods that had any flavor). She was then admitted to the ICU and placed on tube feedings. Aziza has been on tube feeds since last and tells me her appetite and taste are slowly recovering. She admits that 120lbs would be a healthier weight for her but she is not comfortable with her body at that weight. Pt struggles with IBS-C which she has been able to manage at home withteas and prebiotic gummies. She tells me her bowels are moving well here. Yesterday Aziza ate cerealand a bard boiled egg for breakfast, most of a turkey wrap and chick rice roup for lunch and southwest chicken and rice bowl with spinach for dinner. Net Trainer encouraged patient to think beyond the constrains of healthy foods and reminded Aziza that food serves to provide energy to engage in activities she enjoys and as a source of enjoyment/socialization/pleasure. Discussed with Aziza importance of variety in diet to meet her nutritional needs. Net Trainer provided Tips to Better Food Intake handout, emphasizing sections: how to increase calories,how to increase protein, loss of appetite and healthy snack ideas. Set goals with patient for four small meals daily with protein and fat at each meal, developed example menu with patient likes. Encouraged patient to add condiments to foods for increased calories and improved taste while taste is poor- pt agreed to lactose-free cottage cheese, hummus, pesto, cream cheese, dressings, guacamole, cheese as tolerated. Pt agreeable to drinking ensure if unable to eat meals (reports she has enjoyed these before and prefers chocolate and vanilla). Encourage Aziza to switch to whole lactaid milk (v. Fat free), add milk to oatmeal, use peanut butter, dried fruits, granola and mayonnaise liberally. Radha diop has strong will to make changes and reports good self-efficacy at this time. All questions answered at this time. Protein-calorie Malnutrition: >5% weight loss in 1 month, Moderate subcutaneous fat loss and Moderate lean muscle loss is consistent with severe protein-calorie malnutrition in the setting socia/environmental factors (pt with AN exacerbated by COVID+ infection) (Issa bartlett al, JPEN J Parenteral Enteral Nutr. 2011; 36(3): 273-83) Nutrition to continue to follow up while inpatient Kalia Wynne RD Pager #:[phone] * Tamela Elizondo - 01/19/2022 2:55 PM EDT Security Guards Dispatcher Encounter Note Patient Name: Aziza Tamez : [id number] MR#: [id number] Admit Date: 01/18/2022 5:13 PM Hospital Day 1 day Narrative: I saw this patient as a result of her request to meet with a security manager. Ms. Tamez rested on her bed, where she has a difficult time getting physically comfortable, while we spoke. She stated that she needed to talk about her suicide attempt in order to help her come to terms with what she did and to help with the healing process. She spoke of her mental health history with two past suicideattempts, this one being the most serious. Patient talked about the impact of the , last fall,of her close friend, and then getting COVID at the beginning of September. She describes the bout ofCOVID as having a severe effect on her mental well-being. Winter is always the hardest time of yearfor her, although her mood often lifts in September when she can start garden seeds indoors. This year JULIAN took any spark towards life that she might have had away from her. When she thought about the garden she just felt exhaustion. She states she started planning to kill herself in October,and then moved towards the event at a steady pace, feeling complete detachment as she did this. She states that she remembers everything up until she cut her left wrist, and remembers nothing after that although she has tried to piece things together from her and the police report. The patient talks about an experience she had when she was at [facility] in the ICU, but not fully awake and aware. She reports feeling like she was floating around the ICU with stars above. She could see everyone but no one could see her. She then heard voices and realized she had floated over to her best friend, Josiane's libra. She could hear and see her friend, but her friend could not sense her presence. Ms. Tamez describes this as a beautiful experience; it gives her the sense that God wants her to live and has a purpose for her. She understands it as a gift from God. Assessment: The patient understands her dream or vision as a sign that God has a purpose for her on earth. She identifies it as a calling, although she is not sure exactly what she is being called to do yet, besides to stay alive and find mandy in life. She states that she is happy to be alive and is feeling better than she has since early fall. Intervention and Outcome: I provided supportive listening and reflection regarding the patient's suicide attempt as she brought details of it into the open. She stated, when asked, that she feels like talking about what happened is more helpful than retraumatizing. She expressed gratitude for the meeting. The patient also asked for a bible and I brought her one. Follow-up: Patient plans to follow up with psychiatric care team as well as her team at home. Time in Direct Care: 70 minutes. Tamela Elizondo 01/19/2022 * Butch Jennings MD - 01/19/2022 1:32 PM EDT Psychiatry Inpatient - Progress Note 01/19/2022 ID: Aziza Tamez is a 61 y/o F with a pertinent psychiatric hx of major depressive disorder, OFELIA and PTSD complicated by multiple suicide attempts via overdose requiring hospitalization/ECT, presenting after suicide attempt via overdose and cutting of wrists. Hospital day 1. Diagnosis: MDD (major depressive disorder), recurrent episode, severe Pertinent medical issues being addressed: unsteady gait Interval History: (1,1,4) Narrative: pt reports improved mood since recovering from suicide attempt, noting a new perspectiveand attitude. She wants to be more accepting of her challenges and enjoy what she has. No si. Tolerating meds. Sleep and energy are fine. Nursing reports: sleeping through the night. Pleasant with staff. Reports anxiety. No disruptive behavior. Review of Systems: (0,1,2) CONST no fever CV no angina, no palpitations and no dyspnea on exertion RESP no shortness of breath GI no nausea, no vomiting and no diarrhea NEURO no headache MS PSYCH See above Other Suicide Risk Factors on Day of Admission: Enduring Factors: history of substance abuse, chronic mental health problems, history of previous suicide attempts and history of trauma ?? Dynamic Factors: depressive symptoms, recent substance abuse, rehearsal of a suicide plan/Preparatory behavior and sense of hopelessness ?? Protective Factors: family and community support, engaged in medical and/or mental health care, effective coping skills and future orientation ?? Access to Firearms: No Physical Exam: (1,6,9) Vitals (24hr Range): Temp: [36.5 ??C (97.7 ??F)-36.6 ??C (97.9 ??F)] Resp: [18] Heart Rate: [79] BP: (109-113)/(70-75) SpO2: [98 %-100 %] Patient Vitals for the past 168 hrs: Weight 01/18/22 1746 42 kg (92 lb 9.6 oz) Musculoskeletal System: ambulates independently and no stiffness Mental Status Exam: ?? Appearance: age appropriate, casually dressed, well groomed and underweight ?? Behavior: cooperative with the interview and calm ?? Speech: normal pitch, normal volume, normal rate and normal rhythm ?? Language: fluent in bolivian and without paraphasic errors ?? Mood: hopeful ?? Affect: bright ?? Thought Process: linear ?? Associations: intact ?? Thought Content: denied homicidal ideation, denied suicidal ideation and no bizarre delusions ?? Perception: denied auditory hallucinations denied visual hallucinations not observed responding to internal stimuli ?? Orientation: grossly intact by interview ?? Attention/Concentration: able to sustain focus ?? Cognition: grossly intact by interview ?? Memory: recent and remote memory grossly intact ?? Fund of Knowledge: appropriate for age and level of functioning ?? Insight: fair ?? Judgment: fair Energy Suicide Risk Scale - Initial Assessment: Q1 Wish to be : Have you wished you were or wished you could go to sleep and not wake up?:yes (01/18/221741) Q2 Suicidal Thoughts: Have you actually had any thoughts of killing yourself?: yes (01/18/221741) Q3 Suicidal Thought Method: Have you been thinking about how you might do this?: yes (01/18/221741) Q4 Suicidal Intent without Specific Plan: Have you had these thoughts and had some intention of acting on them?: yes (01/18/221741) Q5 Suicide Intent with Specific Plan: Have you started to work out or worked out the details of howto kill yourself? Do you intend to carry out this plan?: yes (01/18/221741) Q6 Suicide Behavior (Lifetime): Have you ever done anything, started to do anything, or prepared todo anything to end your life?: yes (01/18/221741) Within the Past 3 Months?: yes (01/18/221741) Energy Suicide Risk Scale - Daily Assessment (most recently completed): Suicidal Thoughts: Since you were last asked, have you had any actual thoughts of killing yourself?: No (01/19/22799) Suicide Behavior Question: Since you were last asked have you done anything, started to do anything, or prepared to do anything to end your life?: No (01/19/22799) Current Medications: Scheduled: ??? mirtazapine 30 mg Oral Nightly ??? OLANZapine 2.5 mg Oral Nightly ??? vilazodone 40 mg Oral Daily PRN: acetaminophen, LORazepam, melatonin, polyethylene glycoL Labs: Psychiatry Labs Preg: No results found for: HCGQUAL, HCGQUANT Heme: Lab Results Component Value Date WBC 7.2 01/18/2022 HGB 11.8 01/18/2022 HCT 34.7 (L) 01/18/2022 PLATELET 626 (H) 01/18/2022 MCV 96.7 (H) 01/18/2022 NEUTROABS 4.46 01/18/2022 No results found for: HA1C, SEDRATE Chem: Lab Results Component Value Date NA 139 01/18/2022 K 3.9 01/18/2022 CL 105 01/18/2022 CO2 23 01/18/2022 BUN 17 01/18/2022 GLUCOSE 92 01/18/2022 Lab Results Component Value Date CALCIUM 9.5 01/18/2022 MAGNESIUM 0.85 01/18/2022 PHOS 4.4 01/18/2022 LFTs: No results found for: ALT, AST, GGT, ALKPHOS, BILITOT, AMMONIA Coags: No results found for: PTT, PT, INR Thyroid: No results found for: TSH, [id number], TT4 Lipids and HgbA1C: No results found for: CHLPL, HDL, CHOLHDL, LDLCHOL, LDLDIRECT, TRIG No results found for: HA1C Vit Lvls: No results found for: [id number], SFOLATE UA: No results found for: GLUCOSEU, KETONESUA, PROTEINUADIP, BLOODUADIP, LEUKOESTERUA, NITRATEUA, WBCUA (May not represent most recent UA results. See eD-H labs for more details.) Tox: No results found for: ETHANOL, ACTMNPHEN, SALICYLATE, LEAD No results found for: UDAUSCREEN Rx Lvls: No results found for: LITHIUM, CARBAMAZEPIN, VALPROATE, LAMOTRIGINE, CLOZAPINE Assessment: (including Suicide Risk Assessment) .Aziza Tamez is a 61 y/o F with a pertinent psychiatric hx of major depressive disorder, GADand PTSD complicated by multiple suicide attempts via overdose requiring hospitalization/ECT, presenting after suicide attempt via overdose and cutting of wrists. Pt has history of severe recurrent depression that typically worsens in the winter. This year was much harder with the of a dear friend and having a complicated course of COVID. She worsening depression with significant weight loss and decline in function. She prepared for suicide over several months and made a serious attempt. Since the attempt and with medication adjustment while on the medical unit, her condition is improving. She appears to be more bright and hopeful. She has tolerated augmentation with olanzapine to her antidepressant. We will work on developing distress tolerance and safety planning. Current Suicide Assessment: elevated above baseline due to recent attempt and continued stressors. This is mitigated by improving future orientation and now denying suicidal ideation. Diagnosis: MDD (major depressive disorder), recurrent episode, severe Plan: # MDD, Severe, Recurrent features. ? Continue Mirtazapine 30mg qhs ? continue Viibyrd 40mg daily ? Continue Zyprexa 2.5mg daily ? Continue Ativan .5mg qd prn for anxiety ? Monitor improvement on Zyprexa. Consider ECT given patient's previous success if patient fails toimprove. ?? # Suicide Risk Mitigation ? Low ligature criteria ? Q15 checks ?? Preventative/Prophylaxis: ?? Pneumovax and Influenza immunizations to be given as needed. ?? DVT prophylaxis not indicated: patient is at low risk for VTE and is fully ambulatory. ?? If currently a smoker: advised about smoking cessation, will provide cessation material and support. ?? Disposition: Estimated length of time needed for hospital stay is 5 days. Proposed post-discharge care will likely include re-establishing follow-up care with existing providers. ?? #PRNS: Sleep: melatonin 3mg Anxiety: lorazepam 0.5mg PainL tylenol 650mg GI: miralax Outpatient Care: Provider Name Date Contacted By Treatment Team Current Mental Health Prescriber Current Therapist PCP Madhavi Smith APRN Patient Instruction/Education Provided: Patient provided verbal instructions during rounds regarding the treatment plan. I have reviewed and agree with the multidisciplinary treatment plan. I certify that the patient requires inpatient care for psychiatric treatment for safety, stabilization, and any other therapeutic intervention that could conceivably improve the patient's condition, including medication management, group psychotherapy, establishing adequate outpatient care, and/or diagnostic study. Signed By: Butch Jennings MD 01/19/2022 * Jacque Rodriguez - 01/19/2022 9:45 AM EDT Inpatient Daily Group Note Group: Goals Notes: Patient was meeting with the team during goals. Jacque Rodriguez 01/19/2022 Inpatient Daily Group Note Group: Distress Tolerance Attendance: Present Behavior: Conversational and Relevant Therapeutic Work Observed: Moderate Mood: Stable Notes: Reviewed the basic tenets of Dialectical Behavior Therapy to begin with and then transitioned into Distress Tolerance. Examined crisis survival and distracting skills along with overview of effective versus ineffective coping mechanisms. Patient engaged in group discussion with insightful comments and interest in group. Jacque Rodriguez 01/19/2022 * Nataly Hendrix RN - 01/19/2022 9:01 AM EDT OUTCOME EVALUATION NOTE: OUTCOME SUMMARY: Aziza discussed circumstances of admission and discussed her SA. She is remorseful and happy it was not successful. She no longer feels suicidal, and reports she needs a refresher on her coping skills. Aziza has wounds to both wrists that are healing well- open to air and scabbed over with no drainage. She rates her depression level today as 5/10, anxiety 6-7/10, and denies SI. She reports it took her a long time to get to sleep last PM r/t foot pain. She states this is from deconditioning from her ICU stay. She is walking with a walker and is steady on her feet. Tylenol 650 mg was given for foot pain 5/10 this AM . She is planning to attend groups. Energy Suicide Severity Rating Scale: Initial Risk: High Risk (01/18/22 1742) Daily Risk: Low Risk (01/19/22 0800) The following nursing interventions and strategies were implemented to mitigate suicide risk: Distract with activities Groups for skill building Reviewed Values with patient Scheduled check in with nursing Therapeutic communications/listening Positive reinforcement Ongoing safety measures include: Ligature resistant environment of care provided Every 15 minutes safety checks Twice daily environment of care safety sweeps and individual room checks Silverware counted Door to room remains open PLAN MOVING FORWARD: meds as ordered, group therapy, assess and monitor wounds, discharge planning. INDIVIDUALIZED FALL PREVENTION INTERVENTIONS: Patient-specific fall risk factors per assessment: [current deficits]: deconditioned Assistance [level of assistance required for transfers and ambulation]: Independent with walker Supervision [direct monitoring required during toileting and ADLs]: Esc to groups Surveillance [continuous indirect monitoring]: q 15 minute checks Patient-specific fall prevention interventions for sensory deficits provided, if applicable: [X] No CPG GOAL OUTCOME EVALUATION: Aziza is motivated for tx. * Sandra Willson, MAHI - 01/19/2022 1:10 AM EDT Patient noted to be urinating frequently. She denies only pain or burning. Will monitor closely dueto post catheterization. Patient asked to report any change of symptoms. * Wanda Johnson RN - 01/18/2022 6:24 PM EDT OUTCOME EVALUATION NOTE: OUTCOME SUMMARY: Patient arrived at 1715 via wheelchair from ICU. She is alert and oriented times 4. She is pleasantand easy to engage. Patient has bandages on bilateral wrists from suicide attempt during this she also OD. Sutures were removed this afternoon. Dressing intact with no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 Wanda Johnson RN)2038 (Given - Provider: Annette Fox RN - Comment: taking tylenol prophylactically for back spasms.) 1457 (Given - Provider: Megha Fisher RN) LORazepam (Ativan) tablet 0.5 mg 0.5 mg, Oral, DAILY PRN, Starting on Tue01/18/22 at 1713, Until Tue01/22/22 at 1805, Anxiety, Hold for RR less than 12, SBP less than 90, or DBP less than 60, Routine melatonin tablet 3 mg 3 mg, Oral, NIGHTLY PRN, Starting on Tue01/18/22 at 1713, Until Tue01/22/22 at 1805, insomnia, Routine 2118 (Given - Provider: Annette Fox RN) 2038 (Given - Provider: Annette Fox RN) polyethylene glycoL (Miralax) packet 17 g 17 g, Oral, DAILY PRN, Starting on Tue01/18/22 at 1713, Until Tue01/22/22 at 1805, Constipation, Administer if needed per patient's routine or if no bowel movement within 48 hours to achieve: 1) One bowel movement at least every 48 hours, AND 2) Without straining. If multiple bowel medications ordered, consider polyethylene glycol(MIRALAX) first., Routine documented in this encounter Care Teams Miner Relationship Specialty Start Date End Date Madhavi Smith APRN [address] [place] [address] PCP - General Family Medicine 12/14/21 documented as of this encounter
--- OUTSIDE RECORDS SUMMARY | 2024-04-12 11:17 | XMS_ITS | Encounter Summary ---
[place] [address] Care Team Providers Care Budget Analyst Name Role Phone Madhavi Smith APRN Primary Care Provider [phone] Encounter Details Date Type Department Care Team (Latest Contact Info) Description 03/16/2023 Travel Social History Tobacco Use Types Packs/Day [...] on filedocumented in this encounter Care Teams Budget Analyst Relationship Specialty Start Date End Date Madhavi Smith APRN [address] [place] [address] PCP - General Family Medicine 12/14/21 documented as of this encounter
--- OUTSIDE RECORDS SUMMARY | 2024-04-12 11:17 | XMS_ITS | Encounter Summary ---
Author Organization [facility] [place] [address] Care Team Providers Care Instructional Coordinator Name Role Phone Madhavi Smith APRN Primary Care Provider [phone] Encounter Details Date Type Department Care Team (Late st Contact Info) Description 01/19/2022 Telephone Dermatology at [facility] [address] [place] [address] Edwar Seymour MD [address] [facility] [place] [address] Social History Tobacco Use Types Packs/Day Years [...] * Telephone Encounter - Roxanne Oates - 01/20/2022 9:23 AM EDT Tried to reach out to patient in inpatient dept with no success. Sent msg to active my account. * Telephone Encounter - Vivian Araiza - 01/19/2022 3:11 PM EDT Pt called and she is inpatient and has been for a week. She would like to discuss her spironlactone. She had stopped it but would like to restart again. Can you have Dr. Seymour call to discuss this with her. Inpt #[id number]. R documented in this encounter Plan of Treatment Not on file documented as of this encounter Visit Diagnoses Not on filedocumented in this encounter Care Teams Instructional Coordinator Relationship Specialty Start Date End Date Madhavi Smith APRN [address] [place] [address] PCP - General Family Medicine 12/14/21 documented as of this encounter
--- OUTSIDE RECORDS SUMMARY | 2024-04-12 11:17 | XMS_ITS | Encounter Summary ---
[place] [address] Care Team Providers Care Manager Paid Name Role Phone Madhavi Smith APRN Primary Care Provider Encounter Details Date Type Department Care Team (Latest Contact Info) Description 09/22/2022 Travel Social History Tobacco Use Types Packs/Day [...] on filedocumented in this encounter Care Teams Manager Paid Relationship Specialty Start Date End Date Madhavi Smith APRN [address] [place] [address] PCP - General Family Medicine 12/14/21 documented as of this encounter
--- OUTSIDE RECORDS SUMMARY | 2024-04-12 11:17 | XMS_ITS | Encounter Summary ---
Author Organization [facility] [place] [address] Care Team Providers Care Superintendent Radio Communications Name Role Phone Luis Madhavi MATHEUS Primary Care Provider [phone] Encounter Details Date Type Department Care Team (Late st Contact Info) Description 07/28/2022 9:15 AM EST Office Visit Dermatology [facility] [address] [place] [address] Edwar Seymour MD [address] [facility] [place] [address] Androgenic alopecia Social History Tobacco Use Types [...] Progress Notes * Edwar Seymour MD - 07/28/2022 9:15 AM EST Images from the original note were not included. DEPARTMENT OF DERMATOLOGY Medical Dermatology Clinic Provider: Edwar Seymour MD FAAD at Dermatology [facility] Patient's preferred name Aziza? PAST MEDICAL HISTORY (if blank, patient denies history) Melanoma - Dysplastic nevi - SCC - BCC ?? AK []?cryotherapy []?efudex []?PDT []?Other ? Relevant Medications []?Immunosuppression []?Transplant []?Oncogenic medication []?Nicotinamide 500mg po bid Androgenetic alopecia Prev: spironolactone Other relevant history?? MDD c/b SI FAMILY HISTORY (if blank, patient denies history) Melanoma ??- NMSC ??- Other relevant history ?? SOCIAL HISTORY ? Occupation:??Retired?? History of Present Illness: Aziza Tamez is 61 y.o. and here for the following: ??? History of androgenetic alopecia currently using no treatment with no change since stopping spironolactone in 2021. Medications: Reviewed in eD-H Allergies: Reviewed in eD-H Skin Examination Standby: Margret Anthony MA Well developed, well-nourished in no apparent distress, alert and oriented to time, person, place and situation. Focused examination of the skin of the scalp significant for the following: Exam Findings/Assessment/Plan Androgenic Alopecia Hypodensity on the crown and superior scalp??with terminal hairs on the frontal scalp than previousexams; basically, stable. ?? No change since stopping spironolactone. Consider oral minoxidil. ?? Discussed my recommendation, as above. Discussed topical and oral minoxidil and major risks of cardiovascular AE with oral minoxidil; handout given. Answered all questions. Patient to consider but defers any treatment at this time. . Follow-up: 6 months for Alopecia follow up. Return sooner as needed for suspicious lesion, new or worsening dermatitis. [] Recall placed [] Forwarded to home care scheduler [x] Patient scheduled before exiting Scribe attestation: Margret Anthony MA has performed the documentation for this encounter in the presence of and acting as a scribe for MD ZOE Lambert. I performed the above scribed service and agree with the accuracy of the documentation in this encounter. Reviewed and signed by: Edwar Seymour MD FAAD Dermatology [facility] documented in this encounter Plan of Treatment Not on file documented as of this encounter Visit Diagnoses Diagnosis Androgenic alopecia Other alopecia documented in this encounter Care Teams Superintendent Radio Communications Relationship Specialty Start Date End Date Madhavi Smith APRN [address] [place] [address] PCP - General Family Medicine 12/14/21 documented as of this encounter
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
--- OUTSIDE RECORDS SUMMARY | 2024-04-12 11:17 | XMS_ITS | Encounter Summary ---
[place] [address] Care Team Providers Care Trolley Collector Name Role Phone Madhavi Smith APRN Primary Care Provider [phone] Encounter Details Date Type Department Care Team (Latest Contact Info) Description 07/28/2022 Travel Social History Tobacco Use Types Packs/Day [...] on filedocumented in this encounter Care Teams Trolley Collector Relationship Specialty Start Date End Date Madhavi Smith APRN [address] [place] [address] PCP - General Family Medicine 12/14/21 documented as of this encounter
--- OUTSIDE RECORDS SUMMARY | 2024-04-12 11:17 | XMS_ITS | Encounter Summary ---
Author Organization [facility] [place] [place] [address] Care Team Providers Care Bottle Washer Machine Name Role Phone Madhavi Smith APRN Primary Care Provider [phone] Encounter Details Date Type Department Care Team (Late st Contact Info) Description 02/15/2022 9:00 AM EDT Office Visit Neurology at [facility] [address] [place] [address] Cathy Silva APRN [facility] [place] [address] Migraine without aura and without status migrainosus, [...] Sign Reading Time Taken Comments Blood Pressure 119/65 02/15/2022 8:46 AM EDT Pulse 60 02/15/2022 8:46 AM EDT Temperature - - Respiratory Rate - - Oxygen Saturation - - Inhaled Oxygen Concentration - - Weight 45.4 kg (100 lb) 02/15/2022 8:46 AM EDT Height 167.6 cm (5' 6) 02/15/2022 8:46 AM EDT r eported Body Mass Index 16.14 02/15/2022 8:46 AM EDT documented in this encounter Progress Notes * Cathy Silva, THERAPEUTIC RADIOLOGIST - 02/15/2022 9:00 AM EDT Neurology Headache Clinic Follow Up Patient [...] sumatriptan No h/orenal stones Interval History: Had suicide attempt with medication. One of the medications was hydroxyzine. Admitted here. Headaches have improved. Taking Naproxen and feels like she is managed. 4-5 since the first of January. She would like to have the hydroxyzine as well. Feels health has improved. Patient is accompanied by . He offers Filled out with provider. Migraine Disability Assessment # of days in [...] Average LUX intensity (0-10) 8 MIDAS Responses 02/15/2022 Days missed school/work 0 Days productivity at work/school reduced 0 Days did not do household work 35 Days productivity related to housework reduced 10 Days missed family, social or leisure activities 35 Days had headache 35 Pain scale 8 MIDAS Score 80 (MIDAS grade IV, severe disability) MIDAS Adjusted Score - Medications tried: [...] Outpatient Medications Medication Sig Dispense Refill ??? zolpidem (Ambien) 5 mg Tablet ??? naproxen (Naprosyn) 250 mg Tablet Every 12 hours. ??? HYDROXYZINE HCL ORAL Take by mouth. ??? OLANZapine (ZyPREXA) 2.5 mg Tablet Take [...] for the past 24 hrs: Pulse BP 02/15/22 0846 60 119/65 45.4 kg (100 lb) General exam: The patient looked well [...] disorder, IBS and migraine. Migraine without aura: She has had an interval improvement in her overal health, mood and migraines. At this point I wouldnot add prophylaxis. I think it reasonable that if her is managing her medications, I will refill the hydroxizine. He will put 3 pills in a container for her so that she may take as needed. He does the same with the naproxen. I will see the patient in 4-5month in clinic. They can contact me through - with any problems or concerns. I have spent 25 minutes for this visit in face to face time with this patient, documentation and coordination of care. CHRISTINA Ross APRN, [facility] Neurology, Headache Clinic documented in this encounter Plan of Treatment Not on file documented as of this encounter Visit Diagnoses Diagnosis Migraine without aura and without status migrainosus, not intractable Migraine without aura, without mention of intractable migraine without mention of status migrainosus documented in this encounter Care Teams Bottle Washer Machine Relationship Specialty Start Date End Date Madhavi Smith APRN [address] [place] [address] PCP - General Family Medicine 12/14/21 documented as of this encounter
--- OUTSIDE RECORDS SUMMARY | 2024-04-12 11:17 | XMS_ITS | Encounter Summary ---
Author Organization [facility] [place] [address] Care Team Providers Care Fountain Supervisor Name Role Phone Madhavi Smith APRN Primary Care Provider [phone] Reason for Visit * Reason Onset Date Comments Medication Refill 09/06/2022 Encounter Details Date Type Department Care Team (Late st Contact Info) Description 09/06/2022 Refill Neurology at [address] [address] Cathy Silva APRN [facility] [place] [address] Social History Tobacco Use Types Packs/Day Years [...] encounter Miscellaneous Notes * Telephone Encounter - Vidal Adkins - 09/06/2022 2:42 PM EST Call Center / [facility] Message Prescription Refill Request Clinical Cement Handler message Provider patient sees in Clinic: Cathy Silva Caller and relationship (if other than patient-full name): Self Call back Number: [phone] Ok to leave a message: Y Any issues needing to be addressed prior to medication refill? (ex: dose increase, not at pharmacy): [place] of Med: naproxen (Naprosyn) 250 mg Tablet Strength of Pills: 250 mg Dosing Directions: Every 12 hours. How Patient is Currently Taking Medication: As prescribed 30 or 90 Day Supply: 90 Pharmacy: [facility] [place] JO ANN Chawla - [address], [place] [address] ?? Last Appointment: 02/15/22 Next Appointment: (IF CALL IS FROM PATIENT/FAMILY AND THERE IS NO FOLLOW UP SCHEDULED REVIEW CHART TO SEE WHEN APPOINTMENT IS NEEDED AND SCHEDULE BEFORE SENDING MESSAGE) 09/22/22 Is Patient out of Medication?: No documented in this encounter Plan of Treatment Not on file documented as of this encounter Visit Diagnoses Not on filedocumented in this encounter Care Teams Fountain Supervisor Relationship Specialty Start Date End Date Madhavi Smith APRN [address] [place] [address] PCP - General Family Medicine 12/14/21 documented as of this encounter
--- OUTSIDE RECORDS SUMMARY | 2024-04-12 11:17 | XMS_ITS | Encounter Summary ---
Author Organization [facility] [place] [address] Care Team Providers Care Carrot Harvester Name Role Phone Madhavi Smith APRN Primary Care Provider [phone] Reason for Visit * Reason Onset Date Comments Medication Refill 12/10/2022 Encounter Details Date Type Department Care Team (Late st Contact Info) Description 12/10/2022 Refill Neurology at [address] [address] Cathy Silva APRN [facility] [address] Social History Tobacco Use Types Packs/Day Years [...] on filedocumented in this encounter Care Teams Carrot Harvester Relationship Specialty Start Date End Date Madhavi Smith APRN [address] [place], [place] [address] PCP - General Family Medicine 12/14/21 documented as of this encounter
--- OUTSIDE RECORDS SUMMARY | 2024-04-12 11:18 | XMS_ITS | Encounter Summary ---
Author Organization [facility] [address] Care Team Providers Care Furniture Rental Consultant Name Role Phone Madhavi Smith APRN Primary Care Provider [phone] Reason for Visit * Reason Onset Date Comments Medication Refill Medication Refill 2019 Encounter Details Date Type Department Care Team (Late st Contact Info) Description 2019 Refill Dermatology at [facility] [address] [place] [address] Edwar Seymour MD [address] [facility] [facility] [place] [address] Alopecia Social History Tobacco Use Types Packs/Day Years Used Date Smoking Tobacco: Never Smokeless Tobacco: Never Alcohol Use Standard Drinks/Week Comments Yes 5 (1 standard drink = 0.6 oz pur e alcohol) interminttent Sex and Gender Information Value Date Recorded Sex Assigned at Not on file Gender Identity Not on file Sexual Orientation Not on file documented as of this encounter Plan of Treatment Not on file documented as of this encounter Visit Diagnoses Diagnosis Alopecia Alopecia, unspecified documented in this encounter Care Teams Furniture Rental Consultant Relationship Specialty Start Date End Date Madhavi Smith APRN [address] [place] [address] PCP - General Family Medicine 12/14/21 documented as of this encounter
--- OUTSIDE RECORDS SUMMARY | 2024-04-12 11:18 | XMS_ITS | Encounter Summary ---
Author Organization [facility] [place] [address] Care Team Providers Care Edge Molder Name Role Phone Madhavi Smith APRN Primary Care Provider [phone] Reason for Visit * Reason Comments Medication Refill Encounter Details Date Type Department Care Team (Late st Contact Info) Description 11/22/[address] [facility] [address] [place] [address] Edwar Seymour MD [address] [facility] [facility] [place] [address] Alopecia Social History Tobacco Use Types Packs/Day [...] unspecified documented in this encounter Care Teams Edge Molder Relationship Specialty Start Date End Date Madhavi Smith APRN [address] [place], [place] [address] PCP - General Family Medicine 12/14/21 documented as of this encounter
--- OUTSIDE RECORDS SUMMARY | 2024-04-12 11:18 | XMS_ITS | Encounter Summary ---
Author Organization [facility] [address] Care Team Providers Care Nursing Program Director Name Role Phone Prosper Kristen JARVIS Primary Care Provider [phone] Reason for Visit * Reason Comments Follow-up alopecia Encounter Details Date Type Department Care Team (Late st Contact Info) Description 05/02/2020 4:15 PM EDT Office Visit Dermatology at [facility] [address] [place] [address] Edwar Seymour MD [address] [facility] [place] [address] Androgenetic alopecia; High risk medication use Social History Tobacco Use Types Packs/Day Years [...] Progress Notes * Edwar Seymour MD - 05/02/2020 4:15 PM EDT Dermatology Dermatology at [facility] FOLLOW-UP Chief Complaint: androgenetic alopecia f/u - improved History of Present Illness Aziza Tamez is a 59 y.o. female who presents with the following concerns: ?? History of androgenetic alopecia currently treating with spironolactone 150 mg daily with improvement - more dense hair. Tolerating spironolactone well. Antecedent History:??hair loss?that was first identified??8 months [...] and anorexia, but denies any history of hypothyroidism.?? Interval changes to Medications and Medical, Family and Social Histories (including alcohol and tobacco use) Since Last Visit 2019: No significant interval history. Skin Cancer History No personal history of skin cancer Unknown family??history of skin cancer??(patient was adopted) Allergies Latex, Sulfa (sulfonamide antibiotics), Trazodone, and Lactose intolerance [lactase] Medications has a current medication list which includes the following prescription(s): spironolactone, zolpidem, clobetasol, gabapentin, buspirone, vilazodone, buspirone, lamotrigine, loratadine, docusate sodium, hydroxyzine, rizatriptan, and mirtazapine, and the following Facility-Administered Medications: lactated ringers. Social History Tobacco:??Never Alcohol:??Wine Review of Systems Significant for no pertinent and acute changes in constitutional, , muscusloskeletal, other skin systems upon specific queries. Examination Standby: Renetta Wise CMA Mood is appropriate. Well developed, well-nourished in no apparent distress, alert and oriented to time, person, place and situation. Focused examination of the scalp and hair significant for the following ?? Less hypodensity than previous exam and compared to 2019 images. No erythema, scale. Assessment and Plan Androgenic Alopecia Improved and more density of hair compared to 2019 images. Reviewed: androgenic alopecia, related to hormones (androgens) and genetics, likely caused by a genetically determined sensitivity to the effects of dihydrotestosterone. Treatments include but are not limited to minoxidil, Finasteride and hair transplant. Answered all questions. Handout given. ?? Continue spironolactone 150 mg daily patient will call for refills Taking High Risk Medication [Spironolactone] Counseled: FDA-approved anti-androgen and diuretic used off-label for the treatment of hirsutism, scalp alopecia and/or acne. Potential adverse effects include but are not limited to GI upset/diarrhea, headches/lightheadedness, menstrual irregularities, breast tenderness, muscle aches, arrhythmia. Answered all questions. ?? Labs: BMP Follow-up: 12 months for Alopecia follow up or return to clinic prn for new suspicious lesions or if changes/symptoms in existing lesions develop. Note initiated by RIP Angeles CMA has performed the documentation for this encounter in the presence of and actingas a scribe for Dr. Seymour. I performed the above scribed service and agree with the accuracy of thedocumentation in this encounter. Edwar Seymour MD FAAD Section of Dermatology [facility] * Edwar Seymour MD - 05/02/2020 4:15 PM EDT Renal function and potassium normal. Continue spironolactone. * Nery Abdalla LPN - 05/02/2020 4:15 PM EDT Called and l/m for Aziza with results. documented in this encounter Plan of Treatment Not on file documented as of this encounter Procedures Procedure Name Priority Date/Time Associated Diagnosis Comments HC VENIPUNCTURE Routine 05/02/2020 4:21 PM EDT High risk medication use documented in this encounter Results * Basic Metabolic Panel (non-fasting) (05/02/2020 4:21 PM EDT) Glucose 80 65 - 199 mg/dL [facility] Comment:Diabetes: >=200 mg/d L plus symptoms Blood Urea Nitrogen 11 8 - 18 mg/dL [facility] Creatinine 0.90 0.70 - 1.20 mg/dL [facility] Sodium 141 135 - 145 mmol/L [facility] Potassium 4.1 3.5 - 5.0 mmol/L [facility] Comment: Please note: ??Patients with WBC >100,000 may have falsely elevated Potassium levels. ??For accurate Potassium quantification in these patients send serum separator tube (gold top) for subsequent determinations. ??Contact the Clinical Chemistry Laboratory if there are any questions. Chloride 103 98 - 107 mmol/L [facility] Carbon Dioxide 28 22 - 31 mmol/L [facility] Anion Gap 10 5 - 15 mmol/L [facility] Calcium 9.8 8.5 - 10.5 mg/dL [facility] Est Glomerular Filtration Rate 70 >=60 mL/min/1. 73 m?? [facility] Comment: The eGFR was calculated using the CKD-EPI equation. As with all creatinine based estimates of kidney function, eGFR values calculated with the CKD-EPI equation are not accurate in patients with acute kidney failure, extremes of body mass or the acutely ill. http://MindSnacks/[facility] eGFR 81 >=60 mL/min/1. 73 m?? [facility] Comment: The eGFR was calculated using the CKD-EPI equation. As with all creatinine based estimates of kidney function, eGFR values calculated with the CKD-EPI equation are not accurate in patients with acute kidney failure, extremes of body mass or the acutely ill. http://MindSnacks/[facility] Blood specimen (specimen) 05/02/2020 4:21 PM EDT 05/02/2020 7:40 PM EDT Narrative Resulting Agency Comment Spec In Lab Edwar Seymour MD CHEMISTRY [place] [address] documented in this encounter Visit Diagnoses Diagnosis Androgenetic alopecia Other alopecia High risk medication use Encounter for long-term (current) use of other medications documented in this encounter Care Teams Nursing Program Director Relationship Specialty Start Date End Date Kristen Cheng, UTILIZATION ENGINEER [address] [place] [address] PCP - General Family Medicine 01/17/19 12/13/21 documented as of this encounter
--- OUTSIDE RECORDS SUMMARY | 2024-04-12 11:18 | XMS_ITS | Encounter Summary ---
Author Organization [facility] [place] [address] Care Team Providers Care Labor Relations Worker Name Role Phone Kristen Cheng APRN Primary Care Provider [phone] Reason for Visit * Reason Onset Date Comments Appointment 10/07/2021 Encounter Details Date Type Department Care Team (Late st Contact Info) Description 10/07/2021 Telephone Neurology at [address] [address] Cathy Ma APRN [facility] [place] [address] Appointment Social History Tobacco Use Types Packs/Day [...] encounter Miscellaneous Notes * Telephone Encounter - Marleni Del Valle - 10/07/2021 9:31 AM EST Call Center / [facility] Message - General Issue Call Provider patient sees in Clinic: Cathy Ma Caller and relationship (if other than patient-full name): self Company and position if other than patient or family: n Call back number: [phone] Ok to leave a message: y Reason for call: Patient called to cancel the appointment on 10/09/2021 for new patient appointmentas patient had Covid and is not cleared yet for Covid test. Patient is rescheduled in February and is requesting to get a sooner appointment than February. Please call the patient back to help get sooner appointment. Disposition of Call (choose one and remove others): ??? [place] Message Reason red arrow Message: n ??? Routine Message sent to the Nurse: n ??? Routine message sent to [facility]: y Nurse/[place] contacted via: Message: y Call: n Pager: n documented in this encounter Plan of Treatment Not on file documented as of this encounter Visit Diagnoses Not on filedocumented in this encounter Care Teams Labor Relations Worker Relationship Specialty Start Date End Date Kristen Cheng APRN [address] [place] [address] PCP - General Family Medicine 01/17/19 12/13/21 documented as of this encounter
--- OUTSIDE RECORDS SUMMARY | 2024-04-12 11:18 | XMS_ITS | Encounter Summary ---
Author Organization [facility] [place] [address] Care Team Providers Care Environmental Marketing Representative Name Role Phone Kristen Cheng APRN Primary Care Provider [phone] Encounter Details Date Type Department Care Team (Late st Contact Info) Description 11/20/2021 Telephone Neurology at [facility] [address] [place] [address] Cathy Silva APRN [facility] [place] [address] Social History Tobacco Use Types Packs/Day Years [...] Telephone Encounter - Marleni Del Valle - 11/20/2021 1:39 PM EDT Leida- [place] [facility] ... states they received this referral for PT not sure if this is atypo or sent by mistake? as patient lives in [facility]..fabiano Lambert- * Telephone Encounter - Flavia Mirza RN - 11/20/2021 11:31 AM EDT Referral for physical therapy faxed to [place] [facility] at [phone]. documented in this encounter Plan of Treatment Not on file documented as of this encounter Visit Diagnoses Not on filedocumented in this encounter Care Teams Environmental Marketing Representative Relationship Specialty Start Date End Date Kristen Cheng, PACKAGER MACHINE [address] [place] [address] PCP - General Family Medicine 01/17/19 12/13/21 documented as of this encounter
--- OUTSIDE RECORDS SUMMARY | 2024-04-12 11:18 | XMS_ITS | Encounter Summary ---
[place] [address] Care Team Providers Care Communications Electrician Supervisor Name Role Phone Kristen Cheng APRN Primary Care Provider [phone] Reason for Visit * Reason Onset Date Comments Medication Refill 11/13/2019 Encounter Details Date Type Department Care Team (Late st Contact Info) Description 11/13/2019 Refill Dermatology at [facility] [address] [place] [address] Edwar Seymour MD [address] [facility] [place] [address] Alopecia Social History Tobacco Use Types Packs/Day [...] unspecified documented in this encounter Care Teams Communications Electrician Supervisor Relationship Specialty Start Date End Date Kristen Cheng APRN [address] [place] [address] [place], [place] [address] PCP - General Family Medicine 01/17/19 12/13/21 documented as of this encounter
--- OUTSIDE RECORDS SUMMARY | 2024-04-12 11:18 | XMS_ITS | Encounter Summary ---
Author Organization [facility] [place] [address] Care Team Providers Care Primary Operator Name Role Phone Madhavi Smith APRN Primary Care Provider [phone] Reason for Visit * Reason Comments Medication Refill Encounter Details Date Type Department Care Team (Late st Contact Info) Description 11/20/2019 Refill Dermatology at [facility] [address] [place] [address] Edwar Seymour MD [address] [facility] [place] [address] Alopecia Social History Tobacco Use Types Packs/Day [...] unspecified documented in this encounter Care Teams Primary Operator Relationship Specialty Start Date End Date Madhavi Smith APRN [address] [place], [place] [address] PCP - General Family Medicine 12/14/21 documented as of this encounter
--- OUTSIDE RECORDS SUMMARY | 2024-04-12 11:18 | XMS_ITS | Encounter Summary ---
[place] [address] Care Team Providers Care Project Manager Senior Name Role Phone ProsperKristen MATHEUS Primary Care Provider Reason for Visit * Reason Comments Follow-up alopecia Encounter Details Date Type Department Care Team (Late st Contact Info) Description 06/05/2019 9:30 AM EDT Office Visit Dermatology at [facility] [address] [place] [address] Edwar Seymour MD [address] [facility] [place] [address] Alopecia; Scalp pruritus; High risk medication use Social History Tobacco [...] Progress Notes * Edwar Seymour MD - 06/05/2019 9:30 AM EDT Images from the original note were not included. Dermatology Dermatology at [facility] FOLLOW-UP Chief Complaint: Alopecia F/U - improved History of Present Illness Aziza Tamez is a 58 y.o. female. History of alopecia, currently taking spironolactone 150 mg daily and clobetasol solution 4 times per month. Tolerating medication well. Patient does report improvement with itching. Antecedent History: hair loss?that was first identified??8 months ago. Never been treated or biopsied.??She reports associated burning, tightness, and itchiness, which she rates as 9/10, though the severity fluctuates. Prior to onset, she sustained severe sunburn to the area. She notes worseningof symptoms with exposure to sunlight and wearing hats. Since onset, she has noted decreased density and more hair in the shower drain. She denies associated scaling. She reports history of eczema with involvement of the scalp, but reports that her current symptoms are different from typical flare.She is currently on gabapentin for depression, which [...] alcohol and tobacco use) Since Last Visit 02/20/2019: No significant interval history. Skin Cancer History No personal history of skin cancer Unknown family history of skin cancer (patient was adopted) Allergies Latex; Sulfa (sulfonamide antibiotics); Trazodone; and Lactose intolerance [lactase] Medications has a current medication list which includes the following prescription(s): spironolactone, zolpidem, clobetasol, gabapentin, buspirone, vilazodone, buspirone, lamotrigine, loratadine, docusate sodium, hydroxyzine, rizatriptan, and mirtazapine, and the following Facility-Administered Medications: lactated ringers. Social History Tobacco:??Never Alcohol:??1 glass of wine a night Review of Systems Genitourinary: Positive for urinary frequency--keeping herself hydrated Musculoskeletal: No myalgia or breast tenderness Neurological: No lightheadedness or headaches Significant for no pertinent and acute changes in constitutional, other skin systems upon specific queries. Examination Standby: Gio Bishop Mood is appropriate. Well developed, well-nourished in no apparent distress, alert and oriented to time, person, place and situation. Focused skin examination of the scalp, significant for the following: ?? Hypodensity of hair on the superior and crown of scalp. Normal density of the parietal and lowerparietal scalp. No dermatitis, erosion, or crust. No change from previous image. Assessment and Plan Nonscarring Alopecia with Pruritus DDx: Androgenetic alopecia over telogen effluvium. Well-controlled. No worsening three months into treatment. ?? Continue Rx clobetasol solution apply to the scalp prn for itchiness. ?? Continue Rx spironolactone 150 mg po daily. (refill needed) Taking High Risk Medication [Spironolactone] Counseled: FDA-approved anti-androgen and diuretic used off-label for the treatment of hirsutism, scalp alopecia and/or acne. Potential adverse effects include but are not limited to GI upset/diarrhea, headches/lightheadedness, menstrual irregularities, breast tenderness, muscle aches, arrhythmia. Answered all questions. Labs today: BMP . Follow-up: Alopecia follow-up in September 2019 or return to clinic prn for new suspicious lesions or if changes/symptoms in existing lesions develop. Note initiated by RIP Angeles has performed the documentation for this encounter in the presence of and acting as a scribe for Dr. Seymour. I performed the above scribed service and agree with the accuracy of the documentation in this encounter. Edwar Seymour MD FAAD Section of Dermatology [facility] * Edwar Seymour MD - 06/05/2019 9:30 AM EDT BMP normal. Continue spironolactone. * Vianey Dickey - 06/05/2019 9:30 AM EDT Left detailed voicemail regarding lab results at [phone] (M). Left call back number for patient to return my call if she has any questions. documented in this encounter Plan of Treatment Not on file documented as of this encounter Procedures Procedure Name Priority Date/Time Associated Diagnosis Comments BASIC METABOLIC PANEL Routine 06/05/2019 10:15 AM EDT High risk medication use documented in this encounter Results * Basic Metabolic Panel (non-fasting) (06/05/2019 10:15 AM EDT) Glucose 104 65 - 199 mg/dL [facility] Comment:Diabetes: >=200 mg/d L plus symptoms Blood Urea Nitrogen 10 8 - 18 mg/dL [facility] Creatinine 0.92 0.70 - 1.20 mg/dL [facility] Sodium 141 135 - 145 mmol/L [facility] Potassium 4.4 3.5 - 5.0 mmol/L [facility] Comment: Please note: ??Patients with WBC >100,000 may have falsely elevated Potassium levels. ??For accurate Potassium quantification in these patients send serum separator tube (gold top) for subsequent determinations. ??Contact the Clinical Chemistry Laboratory if there are any questions. Chloride 102 98 - 107 mmol/L [facility] Carbon Dioxide 28 22 - 31 mmol/L [facility] Anion Gap 11 5 - 15 mmol/L [facility] Calcium 10.0 8.5 - 10.5 mg/dL [facility] Est Glomerular Filtration Rate 68 >=60 mL/min/1. 73 m?? [facility] Comment: The eGFR was calculated using the CKD-EPI equation. As with all creatinine based estimates of kidney function, eGFR values calculated with the CKD-EPI equation are not accurate in patients with acute kidney failure, extremes of body mass or the acutely ill. http://Mobule/[facility] eGFR 79 >=60 mL/min/1. 73 m?? [facility] Comment: The eGFR was calculated using the CKD-EPI equation. As with all creatinine based estimates of kidney function, eGFR values calculated with the CKD-EPI equation are not accurate in patients with acute kidney failure, extremes of body mass or the acutely ill. http://Mobule/[facility] Blood specimen (specimen) 06/05/2019 10:15 AM EDT 06/05/2019 12:50 PM EDT Narrative Resulting Agency Comment Spec In Lab Edwar Seymour MD CHEMISTRY ORDERABLES [facility] [place] [address] documented in this encounter Visit Diagnoses Diagnosis Alopecia Alopecia, unspecified Scalp pruritus Unspecified pruritic disorder High risk medication use Encounter for long-term (current) use of other medications documented in this encounter Care Teams Project Manager Senior Relationship Specialty Start Date End Date Kristen Cheng, MATHEUS [address] [place] [address] PCP - General Family Medicine 01/17/19 12/13/21 documented as of this encounter
--- OUTSIDE RECORDS SUMMARY | 2024-04-12 11:18 | XMS_ITS | Encounter Summary ---
[place] [address] Care Team Providers Care Striper Machine Name Role Phone ProsperKristen MATHEUS Primary Care Provider Reason for Visit * Reason Onset Date Comments Medication Refill 07/13/2021 Encounter Details Date Type Department Care Team (Late st Contact Info) Description 07/13/2021 Refill Dermatology at [facility] [address] [place] [address] Edwar Seymour MD [address] [facility] [address] Alopecia Social History Tobacco Use Types Packs/Day [...] encounter Miscellaneous Notes * Telephone Encounter - Yasmeen Khan LPN - 07/13/2021 10:23 AM EST Medication(s) requested to refill Spironolactone Last visit: 05/19/21 Follow up recommended 6 mos. F/U Scheduled: no Assessment/Plan for this/these medications:Androgenic Alopecia Improved and more density of hair compared to 2019 images but little change on the crown scalp. . Reviewed: androgenic alopecia, related to hormones (androgens) and genetics, likely caused by a genetically determined sensitivity to the effects of dihydrotestosterone. Treatments include but are not limited to minoxidil, Finasteride/dutasteride and hair transplant. Answered all questions. Handout given. ? Continue spironolactone 150 mg daily patient will call for refills ?? Discussed starting Dutasteride 0.5mg po daily. Handout from [employer] you roll? given to the patient. Patient to call if she would like to start. Appropriate to refill: yes Special Considerations: no Order/orders pended and routed to Dr. seymour for review and approval documented in this encounter Plan of Treatment Not on file documented as of this encounter Visit Diagnoses Diagnosis Alopecia Alopecia, unspecified documented in this encounter Care Teams Striper Machine Relationship Specialty Start Date End Date Kristen Cehng APRN [address] [place] [address] PCP - General Family Medicine 01/17/19 12/13/21 documented as of this encounter
--- OUTSIDE RECORDS SUMMARY | 2024-04-12 11:18 | XMS_ITS | Encounter Summary ---
Author Organization [facility] [place] [address] Care Team Providers Care Technician'S Helper Name Role Phone Kristen Cheng APRN Primary Care Provider Reason for Visit * Reason Comments Medication Refill Encounter Details Date Type Department Care Team (Late st Contact Info) Description 07/04/2020 Refill Dermatology at [facility] [address] [place] [address] Edwar Seymour MD [address] [facility] [place] [address] Alopecia Social History Tobacco Use Types Packs/Day [...] unspecified documented in this encounter Care Teams Technician'S Helper Relationship Specialty Start Date End Date Kristen Cheng APRN [address] [place] [address] [address] [place], [place] [address] PCP - General Family Medicine 01/17/19 12/13/21 documented as of this encounter
--- OUTSIDE RECORDS SUMMARY | 2024-04-12 11:18 | XMS_ITS | Encounter Summary ---
Author Organization [facility] [place] [address] Care Team Providers Care Knotting Machine Operator Portable Name Role Phone Madhavi Smith APRN Primary Care Provider [phone] Reason for Visit * Reason Comments Medication Refill Encounter Details Date Type Department Care Team (Late st Contact Info) Description 11/19/[address] [facility] [address] [place] [address] Edwar [facility]our [facility] [address] [facility] [place] [address] Alopecia Social History Tobacco Use Types Packs/Day [...] unspecified documented in this encounter Care Teams Knotting Machine Operator Portable Relationship Specialty Start Date End Date Madhavi Smith APRN [address] [place], [place] [address] PCP - General Family Medicine 12/14/21 documented as of this encounter
--- OUTSIDE RECORDS SUMMARY | 2024-04-12 11:18 | XMS_ITS | Encounter Summary ---
[place] [address] Care Team Providers Care Director Process Engineering Name Role Phone Kristen Cheng APRN Primary Care Provider [phone] Reason for Visit * Reason Onset Date Comments Medication Refill 10/16/2020 Encounter Details Date Type Department Care Team (Late st Contact Info) Description 10/16/2020 Refill Dermatology at [facility] [address] [place] [address] Edwar Seymour MD [address] [facility] [place] [address] Alopecia Social History Tobacco Use Types Packs/Day [...] unspecified documented in this encounter Care Teams Director Process Engineering Relationship Specialty Start Date End Date Kristen Cheng APRN [address] [place] [address] [address] [place], [place] [address] PCP - General Family Medicine 01/17/19 12/13/21 documented as of this encounter
--- OUTSIDE RECORDS SUMMARY | 2024-04-12 11:18 | XMS_ITS | Encounter Summary ---
[place] [address] Care Team Providers Care Job Analysis Manager Name Role Phone Kristen Cheng APRN Primary Care Provider [phone] Encounter Details Date Type Department Care Team (Mo st Contact Info) Description 03/24/2020 Telephone Dermatology at [facility] [address] [place] [address] Edwar Seymour MD [address] [facility] [address] Social History Tobacco Use Types Packs/Day Years [...] encounter Miscellaneous Notes * Telephone Encounter - Ovidio Sigala LNA - 03/24/2020 2:23 PM EDT Left direct call back number to schedule appointment with ( also wrote to patient in [facility] ) RTC for punch biopsies of the scalp for alopecia documented in this encounter Plan of Treatment Not on file documented as of this encounter Visit Diagnoses Not on filedocumented in this encounter Care Teams Job Analysis Manager Relationship Specialty Start Date End Date Kristen Cheng APRN [facility] [address] [place] [address] PCP - General Family Medicine 01/17/19 12/13/21 documented as of this encounter
--- OUTSIDE RECORDS SUMMARY | 2024-04-12 11:18 | XMS_ITS | Encounter Summary ---
[place] [address] Care Team Providers Care Property Clerk Name Role Phone Kristen Cheng APRN Primary Care Provider [phone] Encounter Details Date Type Department Care Team (Late st Contact Info) Description 05/19/2021 3:15 PM EDT Office Visit Dermatology [facility] [address] [place] [address] Edwar Seymour MD [address] [place] [address] Androgenetic alopecia; High risk medication use Social [...] Progress Notes * Edwar Seymour MD - 05/19/2021 3:15 PM EDT Images from the original note were not included. DEPARTMENT OF DERMATOLOGY Medical Dermatology Clinic Provider: Edwar Seymour MD FAAD at Dermatology [facility] Patient's preferred name Aziza PAST MEDICAL HISTORY Melanoma Dysplastic nevi SCC BCC Other relevant history FAMILY HISTORY Melanoma NMSC Other relevant history SOCIAL HISTORY Occupation: retired History of Present Illness: Aziza Tamez is 60 y.o. and here for the following: ?? History of androgenetic alopecia currently treating [...] anorexia, but denies any history of hypothyroidism.?? Medications: Reviewed in eD-H Allergies: Reviewed in eD-H Skin Examination Standby: Margarita Parr LPN Well developed, well-nourished in no apparent distress, alert and oriented to time, person, place and situation. Focused examination of the skin of the scalp and hair significant for the following: ??? Hypodensity on the crown and superior scalp. Improvement on the frontal scalp. Assessment/Plan Androgenic Alopecia Improved and more density of [...] starting Dutasteride 0.5mg po daily. Handout from [employer] given to the patient. Patient to call if she would like to start. ?? Taking High Risk Medication [Spironolactone] Counseled: FDA-approved anti-androgen and diuretic used off-label for the treatment of hirsutism, scalp alopecia and/or acne. Potential adverse effects include but are not limited to GI upset/diarrhea, headches/lightheadedness, menstrual irregularities, breast tenderness, muscle aches, arrhythmia. Answered all questions. ? Labs: CMP Follow-up: 6 month Alopecia follow up.. Return sooner as needed for suspicious lesion, new or worsening dermatitis. [x] Recall placed [] Forwarded to farm rancher [] Patient scheduled before exiting Scribe attestation: Margarita Parr LPN has performed the documentation for this encounter in the presence of and acting as a scribe for MD ZOE Lambert. I performed the above scribed service and agree with the accuracy of the documentation in this encounter. Reviewed and signed by: Edwar Seymour MD FAAD Dermatology [facility] documented in this encounter Plan of Treatment Not on file documented as of this encounter Visit Diagnoses Diagnosis Androgenetic alopecia Other alopecia High risk medication use Encounter for long-term (current) use of other medications documented in this encounter Care Teams Property Clerk Relationship Specialty Start Date End Date Kristen Cheng APRN [address] [place] [address] PCP - General Family Medicine 01/17/19 12/13/21 documented as of this encounter
--- OUTSIDE RECORDS SUMMARY | 2024-04-12 11:18 | XMS_ITS | Encounter Summary ---
[place] [address] Care Team Providers Care Second Chef Name Role Phone Luis Madhavi MATHEUS Primary Care Provider Encounter Details Date Type Department Care Team (Late st Contact Info) Description 12/14/2021 10:30 AM EDT Office Visit Dermatology [facility] [address] [place] [address] Edwar Seymour MD [address] [facility] [place] [address] Androgenetic alopecia; High risk medication use Social [...] Progress Notes * Edwar Seymour MD - 12/14/2021 10:30 AM EDT Images from the original note were not included. DEPARTMENT OF DERMATOLOGY Medical Dermatology Clinic Provider: Edwar Seymour MD FAAD at Dermatology [facility] Patient's preferred name Aziza PAST MEDICAL HISTORY (if blank, patient denies history) Melanoma - Dysplastic nevi - SCC - BCC [place] [] cryotherapy [] efudex [] PDT [] Other Relevant Medications [] Immunosuppression [] Transplant [] Oncogenic medication [] Nicotinamide 500mg po bid Other relevant history Androgenetic alopecia - spironolactone FAMILY HISTORY (if blank, patient denies history) Melanoma NMSC Other relevant history SOCIAL HISTORY Occupation: Retired History of Present Illness: Aziza Tamez is 61 y.o. and here for the following: ?? History of??androgenetic??alopecia currently treating with spironolactone 150 mg daily with continued control with no worsening hair loss. Tolerating spironolactone well.?? Review of Systems: Significant for no pertinent and acute changes in constitutional, other skin, genitourinary, cardiovascular, musculoskeletal systems upon specific queries. Antecedent History:??hair loss?that was first identified??8 months [...] Allergies: Reviewed in eD-H Skin Examination Standby: SRAVANTHI Simon Well developed, well-nourished in no apparent distress, alert and oriented to time, person, place and situation. Focused examination of the skin of the scalp significant for the following: Exam Findings/Assessment/Plan Androgenic Alopecia Hypodensity on the crown and superior scalp with terminal hairs on the frontal scalp. Improved and more density of hair compared to 2019 images. Tolerating well. Joint decision to continue spironolactone. ? Continue spironolactone 150 mg daily (refill sent today) Taking High Risk Medication [Spironolactone] Tolerating spironolactone well. Counseled: FDA-approved anti-androgen and diuretic used off-label for the treatment of hirsutism, scalp alopecia and/or acne. Potential adverse effects include but are not limited to GI upset/diarrhea, headches/lightheadedness, menstrual irregularities, breast tenderness, muscle aches, arrhythmia. Answered all questions. ?? Labs today: CMP Follow-up: 6 months for alopecia follow-up (telehealth [place]) . Return sooner as needed for suspiciouslesion, new or worsening dermatitis. [x] Recall placed [] Forwarded to production planner scheduler [] Patient scheduled before exiting Scribe attestation: SRAVANTHI Simon has performed the documentation for this encounter in the presence of and acting as a scribe for Edwar Seymour MD FAAD. I performed the above scribed service and agree with the accuracy of the documentation in this encounter. Reviewed and signed by: Edwar Seymour MD FAAD Dermatology [facility] * Edwar Seymour MD - 12/14/2021 10:30 AM EDT Kidney and liver functions normal. documented in this encounter Plan of Treatment Not on file documented as of this encounter Procedures Procedure Name Priority Date/Time Associated Diagnosis Comments HC VENIPUNCTURE Routine 12/14/2021 11:32 AM EDT High risk medication use documented in this encounter Results * Comprehensive metabolic panel (non-fasting) (12/14/2021 11:32 AM EDT) Glucose 95 65 - 199 mg/dL [facility] Comment:Diabetes: >=200 mg/d L plus symptoms Blood Urea Nitrogen 10 8 - 18 mg/dL [facility] Creatinine 0.85 0.70 - 1.20 mg/dL [facility] Sodium 141 135 - 145 mmol/L [facility] Potassium 4.6 3.5 - 5.0 mmol/L [facility] Comment: Please note: ??Patients with WBC >100,000 may have falsely elevated Potassium levels. ??For accurate Potassium quantification in these patients send serum separator tube (gold top) for subsequent determinations. ??Contact the Clinical Chemistry Laboratory if there are any questions. Chloride 100 98 - 107 mmol/L [facility] Carbon Dioxide 26 22 - 31 mmol/L [facility] Anion Gap 15 5 - 15 mmol/L [facility] Calcium 10.1 8.5 - 10.5 mg/dL [facility] Protein, Total 7.7 6.1 - 8.0 g/dL [facility] Albumin 4.7 3.2 - 5.2 g/dL [facility] Aspartate Aminotransferase 21 0 - 30 unit/L [facility] Alanine Aminotransferase 13 0 - 30 unit/L [facility] Alkaline Phosphatase 59 35 - 105 unit/L [facility] Bilirubin, Total 0.4 0.2 - 1.3 mg/dL [facility] Est Glomerular Filtration Rate 73 >=60 mL/min/1. 73 m?? [facility] Comment: This patient? s estimated glomerular filtration rate (eGFR) is between 73 mL/min/1.73 m2 (patients with less muscle mass) and 85 mL/min/1.73 m2 (patients with more muscle mass) as determined by the CKD-EPI equation. Assessment of eGFR is not appropriate when creatinine concentrations are rapidly changing. For clinical decisions where creatinine clearance will affect therapy, a 24-hour urine creatinine clearance may be advised. Assignment of CKD stage 1 - 5 for patients with an eGFR near the transition point between stages may be based on clinical assessment of muscle mass and symptoms in addition to eGFR. Blood 12/14/2021 11:3 2 AM EDT 12/14/2021 2:17 PM EDT Narrative Resulting Agency Comment Spec In Lab Edwar Seymour MD CHEMISTRY ORDERABLES Performing Organization Address City/State/[facility] Co de Phone Number [facility] [place] [address] documented in this encounter Visit Diagnoses Diagnosis Androgenetic alopecia Other alopecia High risk medication use Encounter for long-term (current) use of other medications documented in this encounter Care Teams Second Chef Relationship Specialty Start Date End Date Madhavi Smith APRN [address] [place] [address] PCP - General Family Medicine 12/14/21 documented as of this encounter
--- OUTSIDE RECORDS SUMMARY | 2024-04-12 11:18 | XMS_ITS | Encounter Summary ---
Author Organization [facility] [place] [address] Care Team Providers Care Drum Stenciler Name Role Phone Prosper Kristen JARVIS Primary Care Provider [phone] Encounter Details Date Type Department Care Team (Late st Contact Info) Description 11/26/2021 Telephone Neurology at [facility] [address] [place] [address] Cathy Silva [facility] [place] [address] Social History Tobacco Use Types Packs/Day Years [...] encounter Miscellaneous Notes * Telephone Encounter - Flavia Mirza RN - 11/26/2021 9:22 AM EDT Call made to [facility]. I spoke with Aminata, pharmacy consultant who states naproxen 550 mg will need a prior authorization. Verbal order given for naproxen 500 mg, no PA necessary. Aminata verbalized understanding and changed the prescription to the 500 mg naproxen 1 tablet twice a day as neededfor mild to moderate headache. #90. Prescription was approved. * Telephone Encounter - Flavia Mirza RN - 11/26/2021 9:22 AM EDT ----- Message from Emilia Kaminski RN sent at 11/25/2021 4:23 PM EDT ----- Regarding: FW: prescription ----- Message ----- From: Aziza Tamez Sent: 11/25/2021 4:17 PM EDT To: [facility] Neurology Headache Nurse Subject: prescription [facility]. is requesting more information pertaining to naproxen before they can fill the prescription thank you documented in this encounter Plan of Treatment Not on file documented as of this encounter Visit Diagnoses Not on filedocumented in this encounter Care Teams Drum Stenciler Relationship Specialty Start Date End Date Kristen Cheng, MATHEUS [address] [place] [address] PCP - General Family Medicine 01/17/19 12/13/21 documented as of this encounter
--- OUTSIDE RECORDS SUMMARY | 2024-04-12 11:18 | XMS_ITS | Encounter Summary ---
Author Organization [facility] [place] [address] Care Team Providers Care Test Evaluator Name Role Phone Kristen Cheng APRN Primary Care Provider Encounter Details Date Type Department Care Team (Late st Contact Info) Description 11/13/2019 Telephone Dermatology at [facility] [address] [place] [address] Gio Bishop Social History Tobacco Use Types Packs/Day Years [...] encounter Miscellaneous Notes * Telephone Encounter - Gio Bishop - 11/13/2019 9:38 AM EDT Left a voicemail informing patient that upcoming f/u appt on 11/20/19 must either be postpone or canbe rescheduled via TeleHealth. Patient has been recommended to call clinic back to rearrange her appt. Letter was also sent today discussing that appt must be cancelled and urging patient to call clinic to reschedule appt. documented in this encounter Plan of Treatment Not on file documented as of this encounter Visit Diagnoses Not on filedocumented in this encounter Care Teams Test Evaluator Relationship Specialty Start Date End Date Kristen Cheng APRN [address] [place] [address] PCP - General Family Medicine 01/17/19 12/13/21 documented as of this encounter
--- OUTSIDE RECORDS SUMMARY | 2024-04-12 11:18 | XMS_ITS | Encounter Summary ---
Author Organization [facility] [place] [address] Care Team Providers Care Philosophy Faculty Member Name Role Phone Prosper Kristen JARVIS Primary Care Provider [phone] Encounter Details Date Type Department Care Team (Late st Contact Info) Description 2019 1:00 PM EDT TH Visit (TeleHealth) Dermatology at [facility] [address] [place] [address] Edwar Seymour MD [address] [facility] [place] [address] Alopecia; Scalp pruritus; High risk medication use [...] Progress Notes * Edwar Seymour MD - 2019 1:00 PM EDT Images from the original note were not included. Dermatology Dermatology at [facility] FOLLOW-UP TELEHEALTH Patient connecting from [place] Chief Complaint: Alopecia F/U - well-controlled History of Present Illness Aziza Tamez is a 59 y.o. female. History of alopecia, currently taking spironolactone 150 mg daily and clobetasol solution seldom with significantly decreased hair loss in the shower and much less even rare itching now. Toleratingmedication well. Antecedent History: hair loss?that was first identified??8 [...] alcohol and tobacco use) Since Last Visit 06/05/2019: No significant interval history. Skin Cancer History [...] Social History Tobacco:??Never Alcohol:??Wine Review of Systems Genitourinary: Positive for urinary frequency but she is keeping hydrated Musculoskeletal: No myalgia Neurological: No lightheadedness or headaches Significant for no pertinent and acute changes in constitutional, other skin systems upon specific queries. Examination Mood is appropriate. Well developed, well-nourished in no apparent distress, alert and oriented to time, person, place and situation. Focused skin examination of the scalp significant for the following: ?? Patient to send images of the superior and frontoparietal scalp and this will be updated as an addendum Assessment and Plan Nonscarring Alopecia with Pruritus DDx: Androgenetic alopecia over telogen effluvium. Well-controlled with decreased hair loss and much less itching. Patient is happy with results thusfar. ?? Continue Rx clobetasol solution apply to the scalp prn for itchiness. ?? Continue Rx spironolactone 150 mg po daily. (refilled 13 Nov 2019) Taking High Risk Medication [Spironolactone] Counseled: FDA-approved anti-androgen and diuretic used off-label for the treatment of hirsutism, scalp alopecia and/or acne. Potential adverse effects include but are not limited to GI upset/diarrhea, headches/lightheadedness, menstrual irregularities, breast tenderness, muscle aches, arrhythmia. Answered all questions. Labs in 6 months: BMP . Follow-up: Alopecia follow-up in Jun 2020 or return to clinic prn for new suspicious lesions orif changes/symptoms in existing lesions develop. Edwar Seymour MD FAAD Section of Dermatology [facility] documented in this encounter Plan of Treatment Not on file documented as of this encounter Visit Diagnoses Diagnosis Alopecia Alopecia, unspecified Scalp pruritus Unspecified pruritic disorder High risk medication use Encounter for long-term (current) use of other medications documented in this encounter Care Teams Philosophy Faculty Member Relationship Specialty Start Date End Date Kristen Cheng APRN [address] [place] [address] PCP - General Family Medicine 01/17/19 12/13/21 documented as of this encounter
--- OUTSIDE RECORDS SUMMARY | 2024-04-12 11:18 | XMS_ITS | Encounter Summary ---
Author Organization [facility] Address [facility] [place] [address] Care Team Providers Care Boring Machine Operator Double End Name Role Phone Madhavi Smith APRN Primary Care Provider [phone] Reason for Visit * Auth/Cert Specialty Diagnoses / Procedures Referred By Contac t Referred To Contact Diagnoses Overdose Overdose Procedures EMERGENCY IPI Referral ID Status Reason Start Date Expiration Date Visits Re quested Visits Authorized [id number] 1 1 Encounter Details Date Type Department Care Team (Latest Contact Info) Description 01/06/2022 11:12 PM EDT - 01/18/2022 5:11 PM EDT Hospital Encounter Medical [place] [id number] [facility] [place] [address] Val[address] [facility] [address] EMERGENCY [place] [address] [place] [address] [place] [address] Intentional overdose, initial encounter; Chest pain, unspecified type Discharge Disposition: Psych Hospital/Distinct Part of Hospital Social History Tobacco Use Types Packs/Day Years [...] Sign Reading Time Taken Comments Blood Pressure 123/74 01/18/2022 12:26 PM EDT Pulse 75 01/17/2022 4:00 PM EDT Temperature 36.9 ??C (98.4 ??F) 01/18/2022 12:26 PM E DT Respiratory Rate 16 01/18/2022 12:26 PM EDT Oxygen Saturation 99% 01/18/2022 12:26 PM EDT Inhaled Oxygen Concentration - - Weight 42.6 kg (93 lb 14.4 oz) 01/16/2022 1:00 A M EDT Height 167.6 cm (5' 5.98) 01/12/2022 6:00 AM ED T Body Mass Index 15.63 01/15/2022 3:46 PM EDT documented in this encounter Discharge Summaries * Tamela Polk MD - 01/18/2022 11:12 AM EDT Hospital Medicine - Discharge Summary Patient Name: Aziza Fields Patient Age: 61 y.o. Language: Wallisian Race: White Ethnicity: Not nor Admit date: 01/06/2022 Discharge date and time: 01/18/2022 Attending Physician: Claudy Estevez MD Follow-up Recommendations for Providers: Suicide attempt: - Transfer to inpatient Psychiatry - Current psych medications: mirtazapine, zyprexa. Please adjust any outpatient psychiatric medications as appropriate. Wrist lacerations: - General Surgery to remove sutures on 01/18/22 (already contacted) Other follow up: - Repeat CBC in 3-5d to recheck plt count, elevation most likely reactive/stress/noninfectious inflammatory response - outpatient Dermatology regarding spironolactone (for androgenetic alopecia, per prior Derm note) Discharge Diagnoses (Hospital Problems) and Secondary Diagnoses (Chronic Problems): Active Hospital Problems Diagnosis ??? Overdose Resolved Hospital Problems No resolved problems to display. Active Non-Hospital Problems Diagnosis ??? Migraine without aura and without status [...] episode, severe, without mention of psychotic behavior ??? MDD (major depressive disorder), recurrent episode, severe History of Presentation (per 01/06/2022 Admission H&P): Aziza Fields is a 61 y.o. female with PMH of MDD, OFELIA, migraines who presents with overdosein attempted suicide. ?? Story is obtained from chart review and son who arrived at the bedside. This appears to be the patient's 4th suicide attempt, all with increasing severity. All prior attempts have been also with medication overdose (no cutting) and they seem to be escalating in severity. Initially, she would overdose in the house but has been making it progressively more difficult to find her. Son reports that step-father left to run some errands and, upon his return, was unable to find Aziza. He called a friendand, eventually, the police in order to find her. They were unable to find her until a ncxeks-ety-ifaurm dog was brought to the home where they found her down in the shed. Son is unaware over what period of time this occurred but there are some reports that it took over 6 hours in order to find her. ?? Upon EMS arrival, she was noted to be hypothermic to 28.2C, bradycardic, hypotensive, multiple pills around her and with 2 significant lacerations to both of her wrists. She was intubated for airway protection - gas at the time remarkable for pH 7.16 and bicarb of 18. Found to be salicylate level 3.5 and ETOH 155. Received narcan, glucagon and bicarbonate with unknown effects. Required levo 10 and HR improved to the 60s. Wrists not sutured yet - Hgb noted to be 10.8. One of the pills was identified to be gabapentin 100mg. Poison control was contacted. ?? Upon chart review, pt has prescriptions for naproxen 500 mg, prednisone 20 mg, lamotrigine 200 mg, mirtazapine 30 mg, zolpidem 10 mg, buspirone 30 mg, atarax 10 mg, ativan 1 mg, spironolactone 50 mg , and vilazodone 40 mg (an SSRI). Most are noted. ?? [place] [facility] [place] was [place] on sedation and on levo gtt at 12. She was weaned down and maintained good MAPs. Unfortunately, began to thrash around and was started on propofol with subsequent increase of her pressor requirement. Hospital Course: #Suicide attempt #Serotonin syndrome 2/2 medication OD from suicide attempt: resolved #Encephalopathy 2/2 above and ICU delirium: resolved The pt was found down after a suicide attempt of medication overdose and cutting her wrists and subsequently intubated for airway protection. Leading diagnosis was most likely serotonin syndrome in the setting of overdose from multilpe medications as per the HPI. Poison control center has been assisting and agree with this diagnosis. No cyproheptadine was given in the ICU. Her CK eventually peaked after receiving IVF, without any evidence of kidney injury. Ativan prn was used for agitation and rigidity, however depression in respiratory status limited its use. Her encephalopathy eventually improved and she was A&Ox4. Her wrist lacerations were repaired with sutures by General Surgery w/plans to remove on 01/18/22 (after 10d). Psychiatry was consulted and recommended continuing home mirtazapine and initiating zyprexa. She briefly had TF through a DHT until she was eventually cleared by CANAL BOAT OPERATOR for a regular diet and the DHT was removed. She was additionally cleared by PT/OT and transferred to Psychiatry for further management. #Acute hypoxia, RML collapse: resolved CXR showed RML collapse on 01/08, possible aspiration vs mucus plugging. Aggressive pulmonary hygiene helped improve her O2 requirement. Her overall respiratory status improved with intermittent diuresis and she had stable O2 req on RA. #thrombocytosis, likely reactive/stress/inflammatory response Her plt ct was increasing without other major hematological lab abnormalities. It was thought to kirsten reactive response/noninfectious inflammation given her presentation. Would recommend repeating the CBC in 3-5d to recheck. Procedures: Intubation Important Studies and Lab Data: DISCHARGE BASIC LABS: Recent Labs 01/18/2232401/17/2214101/16/22 0127 WBC 7.2 8.2 8.3 HGB 11.8 11.7 11.5* HCT 34.7* 34.1* 33.5* PLATELET 626* 561* 440* Recent Labs 01/18/2232401/17/2214101/16/22 0127 NA 139 140 139 K 3.9 4.0 3.4* CL 105 104 103 CO2 23 23 22 BUN 17 13 12 CREATININE 0.54* 0.53* 0.50* MAGNESIUM 0.85 0.85 0.77 PHOS 4.4 4.1 3.6 No results for input(s): BILITOT, BILIDIR, AST, ALT, ALKPHOS in the last 168 hours. No results for input(s): INR, PTT in the last 168 hours. Microbiology: Microbiology Results (Last 30 days) Procedure Component Value Units Date/Time COVID-19 PCR [[id number]] Collected: 01/09/222054 Lab Status: Final result Specimen: Nasopharyngeal Swab Updated: 01/10/22 144 SARS-CoV-2 RNA Not Detected Comment: This result should be interpreted in combination with the clinical observations, patient history and epidemiological information in making a final diagnosis. For testing of asymptomatic individuals, assay performance characteristics and clinical utility have not been evaluated. Testing for SARS-CoV-2 (Severe acute respiratory syndrome coronavirus 2, formerly known as 2019 novel coronavirus or 2019-nCoV) to aid in the diagnosis of COVID-19 is performed using the [employer] SARS-CoV-2 Assay as authorized by the FDA Emergency Use Authorization (EUA). This EUA assay is intended for In-vitro Diagnostic (IVD) use with respiratory specimens such as nasopharyngeal swabs collected from individuals during the acute phase of infection. This assay is performed based on the instructions for use provided by [employer] and additional guidance provided by CDC and FDA. Testing is performed in the [facility] within the Department of Pathology and Laboratory Medicine at [facility], certified under the Clinical Laboratory Improvement Amendments of 1988 (CLIA), 42 U.S.C. 263a, to perform high complexity tests. Assay performance has been verified according to clinical laboratory regulatory requirements for use with specimens collected from individuals suspected of COVID-19. Test results are provided above. A result of Not Detected indicates that the viral RNA target is not present above the limit of detection, but does not preclude SARS-CoV-2 infection. False negative results may occur if a specimen is improperly collected, transported or handled; if amplification inhibitors are present; or if inadequate numbers of viral particles are present in the specimen. When a diagnostic test is negative, the possibility of a false negative result should be considered in the context of a patient's recent exposures and the presence of clinical signs and symptoms consistent with COVID-19. A result of Detected indicates that RNA from SARS-CoV-2 was detected and the patient is infected. As required or requested by public health authorities, positive specimens may be sent for additional testing. Positive and negative predictive values for this test are highly dependent on disease prevalence. A result of Invalid indicates that neither the viral RNA targets nor the internal control target was detected. An invalid result suggests the presence of inhibitors. Recollection and re-testing is recommended in the case of an invalid result. CDC COVID-19 criteria for testing on human specimens and clinical management guidance information are available at the CDC Coronavirus Disease 2019 (COVID-19) webpage under Information for Healthcare Professionals (https://www.cdc.gov/coronavirus/2019-ncov/hcp/index.html) Additional information about this and other EUA tests can be found in provider and patient fact sheets at the following FDA website: https://www.fda.gov/medical-devices/bqxsabwekbk-zhizbmk-5892-deirw-75-bxtmwajdj- aii-vljvayxrlpellz-uoedgaq-devices/azzmo-lvivzmcipgd-klzm SARS-Cov-2 RNA Source MUSIC LIBRARY ASSISTANT Swab Blood culture [[id number]] Collected: 01/07/22 0019 Lab Status: Final result Specimen: Blood Updated: 01/12/22 0701 Blood Culture No growth at 5 days. COVID-19 PCR [[id number]] Collected: 01/06/22 2359 Lab Status: Final result Specimen: Nasopharyngeal Swab Updated: 01/07/22 0324 SARS-CoV-2 RNA PCR Not Detected Comment: This result should be interpreted in combination with the clinical observations, patient history and epidemiological information. For testing of asymptomatic individuals, assay performance characteristics and clinical utility have not been evaluated. Testing for SARS-CoV-2 (Severe acute respiratory syndrome coronavirus 2, formerly known as 2019 novel coronavirus or 2019-nCoV) to aid in the diagnosis of COVID-19 is performed using the [employer] COVID-19 Direct Assay by [employer] as authorized by the FDA issued Emergency Use Authorization (EUA). This assay is intended for In-vitro Diagnostic (IVD) use with nasopharyngeal swabs collected from individuals meeting the CDC criteria for testing. The assay is performed based on the instructions for use and additional guidance provided by the FDA. Testing is performed in the Microbiology Laboratory within the Department of Pathology and Laboratory Medicine at [facility], certified under the Clinical Laboratory Improvement Amendments of 1988 (CLIA), 42 U.S.C. section 263a, to perform high complexity tests. Assay performance has been verified according to clinical laboratory regulatory requirements. Test results are provided above. A result of Not Detected indicates that the viral RNA target is not present but does not preclude SARS-CoV-2 infection. False negative results may occur if a specimen is improperly collected, transported or handled; if amplification inhibitors are present; or if inadequate numbers of viral particles are present in the specimen. A result of Detected suggests a current or recent infection and the patient is presumed to be infected. Positive and negative predictive values for this test are highly dependent on disease prevalence. A result of Invalid indicates the inability to conclusively determine the presence or absence of SARS-CoV-2 RNA in the sample which can be due to a variety of factors. Recollection is recommended in the case of an invalid result. CDC COVID-19 criteria for testing on human specimens and clinical management guidance information are available at the CDC Coronavirus Disease 2019 (COVID-19) webpage under Information for Healthcare Professionals (https://www.cdc.gov/coronavirus/2019-ncov/hcp/index.html). Additional information about this and other EUA tests can be found in provider and patient fact sheets at the following FDA website: https://www.fda.gov/medical-devices/kuwmpayrnyl-nbmmxkc-4021-xrmbe-86-rnbhecrhy- adx-snsyadhtvzfsmp-gqoydqy-devices/akyuj-cbobldlsvij-jycc SARS-CoV-2 Source MUSIC LIBRARY ASSISTANT Swab Pertinent radiology/diagnostic studies: Results for orders placed or performed during the hospital encounter of 01/06/22 XR Chest One View (Exam End: 01/07/2022 1:35 AM) Impression * Endotracheal tube 10 cm above the emmanuel. Please advance. * Enteric tube courses below the diaphragm and beyond the [id number]-akvk. * Minimal central pulmonary vascular congestion. Thank you for letting us participate in the care of this patient. If you are a health care provider and have any questions regarding this report, please contact the number below. For patients who have questions please contact the health plant health care technician that requested your imaging first. Electronically signed by: Bob Escalante MD, [facility] ([phone]), at 01/07/2022 2:06 AM XR Abdomen 1 view (Generic) (Exam End: 01/07/2022 1:35 AM) Impression Enteric tube terminates in the gastric antrum. Thank you for letting us participate in the care of this patient. If you are a health care provider and have any questions regarding this report, please contact the number below. For patients who have questions please contact the health plant health care technician that requested your imaging first. Electronically signed by: Bob Escalante MD, [facility] ([phone]), at 01/07/2022 2:07 AM XR Pelvis (Generic) (Exam End: 01/07/2022 7:10 AM) Impression No acute fracture or dislocation. Thank you for letting us participate in the care of this patient. If you are a health care provider and have any questions regarding this report, please contact the number below. For patients who have questions please contact the health plant health care technician that requested your imaging first. Head wo Contrast (Generic) (Exam End: 01/07/2022 5:07 AM) Impression No acute intracranial pathology. Preliminary report signed by: Andrea Machuca at 01/07/2022 5:16 AM I have personally reviewed the image(s) and the resident's interpretation and agree with the findings, Bob Escalante MD at 01/07/2022 5:23 AM Thank you for letting us participate in the care of this patient. If you are a health care provider and have any questions regarding this report, please contact the number below. For patients who have questions please contact the health plant health care technician that requested your imaging first. Electronically signed by: Bob Escalante MD, [facility] ([phone]), at 01/07/2022 5:[address] Cervical Spine wo Contrast (Exam End: 01/07/2022 5:07 AM) Impression * No acute fracture or dislocation. * Minimal C3-C4, C4-C5 and C5-C6 retrolistheses. * Multilevel degenerative changes as detailed above. Preliminary report signed by: Andrea Machuca at 01/07/2022 5:23 AM I have personally reviewed the image(s) and the resident's interpretation and agree with the findings, Bob Escalante MD at 01/07/2022 5:28 AM Thank you for letting us participate in the care of this patient. If you are a health care provider and have any questions regarding this report, please contact the number below. For patients who have questions please contact the health plant health care technician that requested your imaging first. Electronically signed by: Bob Escalante MD, [facility] ([phone]), at 01/07/2022 5:28 AM MRI Brain wo Contrast (Exam End: 01/07/2022 4:18 PM) Impression No evidence for acute process. Thank you for letting us participate in the care of this patient. If you are a health care provider and have any questions regarding this report, please contact the number below. For patients who have questions please contact the health plant health care technician that requested your imaging first. Chest One View (Exam End: 01/08/2022 6:53 AM) Impression New bibasilar patchy airspace opacities with total opacification of right middle lobe acute represent aspiration pneumonitis. Thank you for letting us participate in the care of this patient. If you are a health care provider and have any questions regarding this report, please contact the number below. For patients who have questions please contact the health plant health care technician that requested your imaging first. Electronically signed by: Bob Escalante MD, [facility] ([phone]), at 01/08/2022 6:57 AM XR Chest One View (Exam End: 01/09/2022 9:24 PM) Impression Increased confluence of multifocal predominantly lower lobe bilateral pulmonary opacities, compatible with aspiration pneumonitis, with trace right and small left pleural effusions. I have personally reviewed the image(s) and the resident's interpretation and agree with the findings, Lorin Ruelas MD at 01/09/2022 11:00 PM Thank you for letting us participate in the care of this patient. If you are a health care provider and have any questions regarding this report, please contact the number below. For patients who have questions please contact the health plant health care technician that requested your imaging first. Electronically signed by: Lorin Ruelas MD, [facility] ([phone]), at 01/09/2022 11:00 PM MRI Brain wo Contrast (Exam End: 01/11/2022 11:54 AM) Impression Stable MRI without acute findings. Thank you for letting us participate in the care of this patient. If you are a health care provider and have any questions regarding this report, please contact the number below. For patients who have questions please contact the health plant health care technician that requested your imaging first. Electronically signed by: Renetta Sims MD, [facility] ([phone]), at 01/11/2022 12:05 PM XR Abdomen 1 view (Generic) (Exam End: 01/11/2022 2:16 PM) Impression 1. Interval placement of weighted tip enteric catheter with distal tip projecting over the body the stomach. 2. Redemonstration of multifocal opacities in the bilateral lungs suggestive of aspiration pneumonitis. I have personally reviewed the image(s) and the resident's interpretation and agree with the findings, Anjali Hill MD at 01/11/2022 2:43 PM Thank you for letting us participate in the care of this patient. If you are a health care provider and have any questions regarding this report, please contact the number below. For patients who have questions please contact the health plant health care technician that requested your imaging first. Chest One View (Exam End: 01/11/2022 3:41 PM) Impression 1. Worsening bilateral mid to lower lung zones opacities which could represent any combination of aspiration or infection and bilateral layering pleural effusions. 2. There is likely a component of pulmonary edema as well. Thank you for letting us participate in the care of this patient. If you are a health care provider and have any questions regarding this report, please contact the number below. For patients who have questions please contact the health plant health care technician that requested your imaging first. Electronically signed by: Vianey Morrison MD, [facility] ([phone]), at 01/11/2022 3:46 PM XR Chest One View (Exam End: 01/12/2022 2:35 PM) Impression 1. No interval change. 2. Stable bibasilar and perihilar airspace opacities. Thank you for letting us participate in the care of this patient. If you are a health care provider and have any questions regarding this report, please contact the number below. For patients who have questions please contact the health plant health care technician that requested your imaging first. Electronically signed by: Alon Peterson DO, [facility] ([phone]), at 01/12/2022 3:00 PM XR Abdomen 1 view (Generic) (Exam End: 01/12/2022 11:54 PM) Impression 1. Dobbhoff tube terminates within the stomach. 2. No other interval change. Thank you for letting us participate in the care of this patient. If you are a health care provider and have any questions regarding this report, please contact the number below. For patients who have questions please contact the health plant health care technician that requested your imaging first. Electronically signed by: Lorin Ruelas MD, [facility] ([phone]), at 01/13/2022 12:06 AM XR Cervical Spine AP Flexion & Extension Only (Exam End: 01/15/2022 11:30 AM) Impression Slight dynamic instability at C4-C5 and C5-C6, which could be due to facet arthropathy. Thank you for letting us participate in the care of this patient. If you are a health care provider and have any questions regarding this report, please contact the number below. For patients who have questions please contact the health plant health care technician that requested your imaging first. Cervical Spine wo Contrast (Generic) (Exam End: 01/15/2022 6:51 PM) Impression No MR evidence for acute cervical spine traumatic injury. Thank you for letting us participate in the care of this patient. If you are a health care provider and have any questions regarding this report, please contact the number below. For patients who have questions please contact the health plant health care technician that requested your imaging first. Discharge Conditions/Prognosis: stable for transfer to inpatient Psychiatry Vital Signs: Last value Range last 24 hrs Temperature Temp: 36.5 ??C (97.7 ??F) Temp: [36.5 ??C (97.7 ??F)-37.1 ??C (98.8 ??F)] Heart Rate Heart Rate: 75 Heart Rate: [75] Blood Pressure BP: 106/64 BP: (106-141)/(64-82) Respiratory Rate Resp: 14 Resp: [14] SpO2 SpO2: 96 % SpO2: [96 %-100 %] Discharge to: inpatient Psychiatry Discharge Medications: Your Medications New Medications Dose Details OLANZapine zydis 5 mg Tbdl Commonly known as: ZyPREXA Take 0.5 tablets by mouth nightly. 2.5 mg Quantity: 30 tablet Refills: 0 Continued medications, unchanged Dose [...] 550 mg Tab Commonly known as: ANAPROX Viibryd 40 mg Tab Generic drug: vilazodone zolpidem 10 mg Tab Commonly known as: AMBIEN Updated Allergies/ADRs: Allergies Allergen Reactions ??? Latex Hives ??? Sulfa (Sulfonamide Antibiotics) Hives ??? Trazodone Other (See Comments) headache ??? Lactose Intolerance [Lactase] Diarrhea Instructions Given to Patient at Discharge: Patient Instructions Instructions after Hospital Medicine discharge: You will be transferred to the Psychiatry service after your Medicine discharge. They will re-adjust any medications at that time. Follow-Up Appointments Future Appointments Date Time Provider Department Center 02/15/2022 9:00 AM Cathy Silva APRN [facility] Date and Time Provider and Specialty Location Need to be scheduled Madhavi Smith APRN , PCP [address] / [facility] [address] [place] In[place](s[place] [facility] [place] Claudy Estevez MD Your Primary Care Provider: Madhavi Smith APRN [address] / [facility] [address] For questions regarding this document or issues relating to this hospitalization on the Medical Service, please contact your inpatient physician through the [facility] [place] [facility] [employer] . Issues afterhours and on weekends will be handled by the Hospitalist staff on-call. General Instructions Mental Health From BIT (Behavioral Intervention Team), Inpatient psych services: 1. We recommend that you continue psychiatric medication optimization with your current PsychiatricNurse Practitioner 2. We recommend that you continue psychotherapy with your current therapist. 3. While in the hospital, we talked about some important areas of focus moving forward: ??? Work toward acceptance of current life changes/limits ??? Attend to grief/bereavement about various losses ??? Think about how to be flexible and compassionate with yourself ??? Time-based pacing from the chronic pain literature ??? Directly address and work on safety - creating safety plan, crisis plan, etc for the future ??? Work with a sports physician and your therapist on reducing disordered eating/anorexia 24 Hour Suicide Prevention Hotlines: National Suicide Prevention Hotline: Crisis Text Line: Text CONNECT to 740697 In case of emergency, please go to your closest Emergency Department or call 911. Alternatively, ifin acute crisis or are feeling unsafe: In [place]: contact your local [facility] for your county to access their crisis services [facility] Crisis Line: [facility]) ([facility]) Help line in [place]: 477-FF-RPUHF ([phone]) Your cervical spine collar has been cleared. There is no need for a cervical collar as you do not have a neck injury. You do not require follow-up with a spine center unless you develop symptoms meriting such an appointment. Future Appointments and Orders Future Appointments and Orders Future Appointments Provider Department Dept Phone 02/15/2022 9:00 AM Cathy Silva APRN Neurology at [facility] Arrive at: Draw Bench Operator [address] [place] [phone] Provider Contact Information: Madhavi Smith APRN [address] / [facility] [address] Discharge References/Attachments: Discharge References/Attachments None documented in this encounter Discharge Instructions * Discharge Instructions* Leonel Denis MD - 01/15/2022 12:34 PM EDT Mental Health From BIT (Behavioral Intervention Team), Inpatient psych services: We recommend that you continue psychiatric medication optimization with your current Psychiatric Nurse Practitioner We recommend that you continue psychotherapy with your current therapist. While in the hospital, we talked about some important areas of focus moving forward: Work toward acceptance of current life changes/limits Attend to grief/bereavement about various losses Think about how to be flexible and compassionate with yourself Time-based pacing from the chronic pain literature Directly address and work on safety - creating safety plan, crisis plan, etc for the future Work with a sports physician and your therapist on reducing disordered eating/anorexia 24 Hour Suicide Prevention Hotlines: National Suicide Prevention Hotline: Crisis Text Line: Text CONNECT to 181462 In case of emergency, please go to your closest Emergency Department or call 911. Alternatively, ifin acute crisis or are feeling unsafe: In [place]: contact your local community [facility] center for your [facility] to access their crisis services [facility] Crisis Line: ([place]) ([facility]) Help line in [place]: 236-EG-CSLMT ([phone]) Your cervical spine collar has been cleared. There is no need for a cervical collar as you do not have a neck injury. You do not require follow-up with a spine center unless you develop symptoms meriting such an appointment. * Patient Instructions* Tamela Polk MD - 01/18/2022 11:11 AM EDT Instructions after Hospital Medicine discharge: You will be transferred to the Psychiatry service after your Medicine discharge. They will re-adjust any medications at that time. Follow-Up Appointments Future Appointments Date Time Provider Department Center 02/15/2022 9:00 AM Cathy Silva APRN [facility] Date and Time Provider and Specialty Location Need to be scheduled Madhavi Smith APRN , PCP [address] / [facility] [address] Your Inpatient Doctor(s[place] [facility] [place] Claudy Estevez MD Your Primary Care Provider: Madhavi Smith APRN [address] / [place] [address] For questions regarding this document or issues relating to this hospitalization on the Medical Service, please contact your inpatient physician through the [facility] [place] [employer] . Issues afterhours and on weekends will be handled by the Hospitalist staff on-call. documented in this encounter Medications at Time [...] mg Tablet Every 12 hours. 03/15/2018 09/06/2022 OLANZapine zydis (ZyPREXA) 5 mg Tablet, Rapid Dissolve Take 0.5 tablets by mouth nightly. 30 tablet 01/18/2022 01/22/2022 spironolactone (ALDACTONE) 50 mg TabletIndications:And rogenetic alopecia TAKE THREE TABLETS BY MOUTH EVERY DAY 180 tablet 3 12/14/2021 01/31/2022 documented as of this encounter Progress Notes * Graciela Gonzáles RN - 01/18/2022 3:59 PM EDT Pt A&ox4, no complaints of pain. Able to ambulate independently in room without a walker and using FWW when ambulating in the pierre. Cleared by PT/OT visited, sitter present entire shift. Discharged and transferred to inpatient psych. * Claudy Estevez MD - 01/18/2022 2:21 PM EDT Hospital Medicine - Attending Day of Discharge Documentation Discharge diagnosis Active Hospital Problems Diagnosis ??? Overdose Resolved Hospital Problems No resolved problems to display. Secondary Issues Active Non-Hospital Problems Diagnosis ??? Migraine without aura and without status [...] episode, severe, without mention of psychotic behavior ??? MDD (major depressive disorder), recurrent episode, severe I have personally seen and examined the patient and they are ready for discharge. I spent <30 minutes (Day of Discharge Code 82837) involved in the final examination of the patient, discussion of the hospital stay, instructions for continuing care to all relevant caregivers, and preparation of discharge records, prescriptions and referral forms. Plans ? Discharge to Inpatient Psychiatry ? Please see the Discharge Summary for complete details of any medication changes and additional plans. * Yessica West OTA - 01/18/2022 9:50 AM EDT Occupational Therapy Treatment Note Treatment Number OT: 3 Patient Dx: Patient profile: Aziza L Laclair-Petit is a 61 y.o. female with a PMH significant for major depressive disorder, generalized anxiety disorder,??and??migraines, admitted on 01/06/2022 s/p suicide attempt with drug overdose and bilateral wrist lacerations (repaired). She was intubated for ai rway protection, now extubated. Hospital course is significant for serotonin syndrome. Pt was placed in a c-collar initially, but it's been since removed. ? Social History: Patient lives with her in [place], [place]. They are both retired. She ambulates w/o a device atbaseline. She reports feeling more fatigued since having Covid in Sep 2021. She has been able to manage her ADL's, but has been needing help with IADL tasks--cleaning around the house and yard work (usually enjoys gardening and using a treadmill every morning). She reports needing help because of fatigue. ?? Precautions/Special Considerations: at risk to fall, 1:1 sitter, bilateral wrist bandages, activityas tolerated ?? Interval History: - NAEON - Off c-spine, cleared by ortho/spine. Started zyprexa yest per psych. - This AM pt's affect is bright and states that she is feeling much improved brent w/ the c-collar removed - She states that she's ready to work w/ PT/OT and is working on PO intake S: I want to get up and get going! I have a lot that I am looking forward to this summer. O: Patient seen for skilled OT treatment, and demonstrated the following: ?? Self-care & Functional Mobility: ?? Pt received in recliner awake and alert sitting present. ?? Per RN pt completing ADL tasks this AM with supervision (washed up at sink and oral care) ?? Pt able to preform figure four to reach BLE and kassidy shirt with supervision ?? Mobilized community access distance >400ft with fww and supervision, no LOB noted ?? Pt left in room with sitter present ?? Cognition: ?? Behavior / Mood: alert and cooperative, in good spirits, and motivated to work with therapy. Pt acknowledging need to go to psych. ?? Alert and oriented to: person, place, time and situation ?? Follows commands: 1 step ?? Attention: WFL ?? Safety awareness: fair insight ?? Vision:wearing glasses ?? Endurance Good activity tolerance today ?? Vitals: VSS per monitor Pain: reported calfs being tight though stated it was improved over previous day Education: Pt/family/caregiver education ongoing regarding: Role of occupational therapy/rehabilitation, Transfers, Assistive device/technique, ADL, Functional Mobility, Recommendations and Dischargeplanning. Staff Communication: Patient status, treatment, and mobility recommendations discussed with nursing/other staff. ASSESSMENT: Pt pleasant and motivated, completing ADL task with supervision and mobility with use of fww and supervision. Pt eager to transition to psych. Pt will benefit from ongoing therapeutic interventions to achieve pt's and therapy goals Equipment needs at discharge: TBD Anticipated Discharge Disposition: other (see comments) (in patient psych) Daily schedule / Staff Recommendations: ?? Transfer to recliner chair as appropriate with fww and supervision ambulate as tolerated ?? Encourage participation in ADL's by providing set up A on tray table and physical assist only asneeded. ?? Provide assist to open containers Occupational Therapy Goals: To be achieved within 1 week, by 01/22/22: 3. Patient will be modified independent with toileting. 4. Patient will be modified independent with sponge bath or shower. 5. Patient will participate in further cognitive assessment as warranted. 6. Patient will verbalize understanding of energy management strategies. Therapy Frequency (OT): 1-3 more times Total Minutes, Occupational Therapy: 20 1x theract Pager: [phone] KARI Navas 01/18/2022 Occupational Therapy Rehabilitation Department * Francis Linton MD - 01/17/2022 7:33 AM EDT Inpatient Hospital Medicine Progress Note Patient ID: Name: Aziza Fields : 1960 PCP: Madhavi Smith APRN PCP phone number: [phone] Date of Admission: 01/06/2022 ( Hospital Day 11 days ) ID: Aziza Fields??is a??61 y.o.??female with PMH of MDD, OFELIA, migraines who was admitted tot MICU for overdose in attempted suicide req intubation for airway protection, now HDS transferred to . ?? 24 H/Subjective: - NAEON - Off c-spine, cleared by ortho/spine. Started zyprexa yest per psych. - This AM pt's affect is bright and states that she is feeling much improved brent w/ the c-collar removed - She states that she's ready to work w/ PT/OT and is working on PO intake Vitals: Last value Range last 24 hrs Temperature Temp: 37 ??C (98.6 ??F) Temp: [36.9 ??C (98.4 ??F)-37.1 ??C (98.8 ??F)] Heart Rate Heart Rate: 83 Heart Rate: [81-92] Blood Pressure BP: 112/75 BP: (98-131)/(51-83) Respiratory Rate Resp: 14 Resp: [14-22] SpO2 SpO2: 97 % SpO2: [92 %-98 %] Ins/Outs: Intake/Output Summary (Last 24 hours) at 01/17/2022 0733 Last data filed at 01/17/2022 0400 Gross per 24 hour Intake 1683 ml Output 500 ml Net 1183 ml Patient Vitals for the past 168 hrs: Weight 01/16/22 0100 42.6 kg (93 lb 14.4 oz) 01/14/22 0000 45.6 kg (100 lb 8.5 oz) 01/13/22 0600 48 kg (105 lb 13.1 oz) 01/12/22 0600 48.6 kg (107 lb 2.3 oz) Admit wt: 46.8 kg Physical Exam Gen: in bed in NAD. sitting up, smiling and conversant HEENT: sclera anicteric, conjunctiva nl ?? CV: RRR, no murmurs/rubs/gallops Resp: ??CTAB, no crackles/wheezes/ronchi, normal work of breathing Abd: normal bowel sounds, soft, non-tender Ext: no pedal edema Neuro: Rigidity improving. Answering questions appropriately, speaks in full sentences Skin: b/l wrist lacerations s/p sutures/dressing c/d/i Psych: smiling with bright affect today . Labs: Recent Labs 01/17/22 0142 01/16/22 0127 01/15/22 0530 01/14/22 0340 01/13/22 0546 WBC 8.2 8.3 9.4 9.0 7.7 HGB 11.7 11.5* 11.4* 11.0* 10.4* PLATELET 561* 440* 376* 291 261 Recent Labs 01/17/22 0142 01/16/22 0127 01/15/22 0530 NA 140 139 139 K 4.0 3.4* 4.0 CL 104 103 103 CO2 23 22 24 BUN 13 12 15 CREATININE 0.53* 0.50* 0.36* GLUCOSE 96 87 100 CALCIUM 9.5 9.3 9.1 MAGNESIUM 0.85 0.77 0.79 PHOS 4.1 3.6 3.3 No results for input(s): PROT, ALBUMIN, BILITOT, BILIDIR, AST, ALT, ALKPHOS in the last 168 hours. No results for input(s): INR, PT, PTT in the last 72 hours. Recent Labs 01/12/22 1350 01/11/22 0110 CK -- 536* TROPONINT <0.01 -- Microbiology: Microbiology Results (Last 30 days) Procedure Component Value Units Date/Time COVID-19 PCR [[id number]] Collected: 01/09/222054 Lab Status: Final result Specimen: Nasopharyngeal Swab Updated: 01/10/22 1442 SARS-CoV-2 RNA Not Detected Comment: This result should be interpreted in combination with the clinical observations, patient history and epidemiological information in making a final diagnosis. For testing of asymptomatic individuals, assay performance characteristics and clinical utility have not been evaluated. Testing for SARS-CoV-2 (Severe acute respiratory syndrome coronavirus 2, formerly known as 2019 novel coronavirus or 2019-nCoV) to aid in the diagnosis of COVID-19 is performed using the [employer] m SARS-CoV-2 Assay as authorized by the FDA Emergency Use Authorization (EUA). This EUA assay is intended for In-vitro Diagnostic (IVD) use with respiratory specimens such as nasopharyngeal swabs collected from individuals during the acute phase of infection. This assay is performed based on the instructions for use provided by [employer] and additional guidance provided by CDC and FDA. Testing is performed in the [facility] Laboratory within the Department of Pathology and Laboratory Medicine at [facility], certified under the Clinical Laboratory Improvement Amendments of 1988 (CLIA), 42 U.S.C. 263a, to perform high complexity tests. Assay performance has been verified according to clinical laboratory regulatory requirements for use with specimens collected from individuals suspected of COVID-19. Test results are provided above. A result of Not Detected indicates that the viral RNA target is not present above the limit of detection, but does not preclude SARS-CoV-2 infection. False negative results may occur if a specimen is improperly collected, transported or handled; if amplification inhibitors are present; or if inadequate numbers of viral particles are present in the specimen. When a diagnostic test is negative, the possibility of a false negative result should be considered in the context of a patient's recent exposures and the presence of clinical signs and symptoms consistent with COVID-19. A result of Detected indicates that RNA from SARS-CoV-2 was detected and the patient is infected. As required or requested by public health authorities, positive specimens may be sent for additional testing. Positive and negative predictive values for this test are highly dependent on disease prevalence. A result of Invalid indicates that neither the viral RNA targets nor the internal control target was detected. An invalid result suggests the presence of inhibitors. Recollection and re-testing is recommended in the case of an invalid result. CDC COVID-19 criteria for testing on human specimens and clinical management guidance information are available at the CDC Coronavirus Disease 2019 (COVID-19) webpage under Information for Healthcare Professionals (https://www.cdc.gov/coronavirus/2019-ncov/hcp/index.html) Additional information about this and other EUA tests can be found in provider and patient fact sheets at the following FDA website: https://www.fda.gov/medical-devices/noqfgkcwzjm-nbxdhzy-8091-fjoff-64-okhhzzlft- flt-kioltvsiotfucf-towalic-devices/qgcca-gbjccocsmbs-zzrz SARS-Cov-2 RNA Source [employer]RARY ASSIST[employer] Swab Blood culture [[id number]] Collected: 01/07/22 0019 Lab Status: Final result Specimen: Blood Updated: 01/12/22 0701 Blood Culture No growth at 5 days. COVID-19 PCR [[id number]] Collected: 01/06/22 2359 Lab Status: Final result Specimen: Nasopharyngeal Swab Updated: 01/07/22 0324 SARS-CoV-2 RNA PCR Not Detected Comment: This result should be interpreted in combination with the clinical observations, patient history and epidemiological information. For testing of asymptomatic individuals, assay performance characteristics and clinical utility have not been evaluated. Testing for SARS-CoV-2 (Severe acute respiratory syndrome coronavirus 2, formerly known as 2019 novel coronavirus or 2019-nCoV) to aid in the diagnosis of COVID-19 is performed using the [employer] COVID-19 Direct Assay by [employer] as authorized by the FDA issued Emergency Use Authorization (EUA). This assay is intended for In-vitro Diagnostic (IVD) use with nasopharyngeal swabs collected from individuals meeting the CDC criteria for testing. The assay is performed based on the instructions for use and additional guidance provided by the FDA. Testing is performed in the Microbiology Laboratory within the Department of Pathology and Laboratory Medicine at [facility], certified under the Clinical Laboratory Improvement Amendments of 1988 (CLIA), 42 U.S.C. section 263a, to perform high complexity tests. Assay performance has been verified according to clinical laboratory regulatory requirements. Test results are provided above. A result of Not Detected indicates that the viral RNA target is not present but does not preclude SARS-CoV-2 infection. False negative results may occur if a specimen is improperly collected, transported or handled; if amplification inhibitors are present; or if inadequate numbers of viral particles are present in the specimen. A result of Detected suggests a current or recent infection and the patient is presumed to be infected. Positive and negative predictive values for this test are highly dependent on disease prevalence. A result of Invalid indicates the inability to conclusively determine the presence or absence of SARS-CoV-2 RNA in the sample which can be due to a variety of factors. Recollection is recommended in the case of an invalid result. CDC COVID-19 criteria for testing on human specimens and clinical management guidance information are available at the CDC Coronavirus Disease 2019 (COVID-19) webpage under Information for Healthcare Professionals (https://www.cdc.gov/coronavirus/2019-ncov/hcp/index.html). Additional information about this and other EUA tests can be found in provider and patient fact sheets at the following FDA website: https://www.fda.gov/medical-devices/jrnlhzgjmdm-stnyrgz-7787-optfa-46-lxqndmjgl- xsr-bieivxocvnqnkv-cljhkct-devices/fxpkl-epqmsjuasss-hslv SARS-CoV-2 Source [employer] LIBRARY ASSISTANT Swab Imaging: Results for orders placed or performed during the hospital encounter of 01/06/22 XR Chest One View (Exam End: 01/07/2022 1:35 AM) Impression * Endotracheal tube 10 cm above the emmanuel. Please advance. * Enteric tube courses below the diaphragm and beyond the ebehz-ek-gaws. * Minimal central pulmonary vascular congestion. Thank you for letting us participate in the care of this patient. If you are a health care provider and have any questions regarding this report, please contact the number below. For patients who have questions please contact the health plant health care technician that requested your imaging first. Electronically signed by: Bob Escalante MD, [facility] ([phone]), at 01/07/2022 2:06 AM XR Abdomen 1 view (Generic) (Exam End: 01/07/2022 1:35 AM) Impression Enteric tube terminates in the gastric antrum. Thank you for letting us participate in the care of this patient. If you are a health care provider and have any questions regarding this report, please contact the number below. For patients who have questions please contact the health plant health care technician that requested your imaging first. Electronically signed by: Bob Escalante MD, [facility] ([phone]), at 01/07/2022 2:07 AM XR Pelvis (Generic) (Exam End: 01/07/2022 7:10 AM) Impression No acute fracture or dislocation. Thank you for letting us participate in the care of this patient. If you are a health care provider and have any questions regarding this report, please contact the number below. For patients who have questions please contact the health plant health care technician that requested your imaging first. Electronically signed by: Bob Escalante MD, [facility] ([phone]), at 01/07/2022 8:[address] Head wo Contrast (Generic) (Exam End: 01/07/2022 5:07 AM) Impression No acute intracranial pathology. Preliminary report signed by: Andrea Machuca at 01/07/2022 5:16 AM I have personally reviewed the image(s) and the resident's interpretation and agree with the findings, Bob Escalante MD at 01/07/2022 5:23 AM Thank you for letting us participate in the care of this patient. If you are a health care provider and have any questions regarding this report, please contact the number below. For patients who have questions please contact the health plant health care technician that requested your imaging first. Electronically signed by: Bob Escalante MD, [facility] ([phone]), at 01/07/2022 5:[address] Cervical Spine wo Contrast (Exam End: 01/07/2022 5:07 AM) Impression * No acute fracture or dislocation. * Minimal C3-C4, C4-C5 and C5-C6 retrolistheses. * Multilevel degenerative changes as detailed above. Preliminary report signed by: Andrea Machuca at 01/07/2022 5:23 AM I have personally reviewed the image(s) and the resident's interpretation and agree with the findings, Bob Escalante MD at 01/07/2022 5:28 AM Thank you for letting us participate in the care of this patient. If you are a health care provider and have any questions regarding this report, please contact the number below. For patients who have questions please contact the health plant health care technician that requested your imaging first. Electronically signed by: Bob Escalante MD, [facility] ([phone]), at 01/07/2022 5:28 AM MRI Brain wo Contrast (Exam End: 01/07/2022 4:18 PM) Impression No evidence for acute process. Thank you for letting us participate in the care of this patient. If you are a health care provider and have any questions regarding this report, please contact the number below. For patients who have questions please contact the health plant health care technician that requested your imaging first. Chest One View (Exam End: 01/08/2022 6:53 AM) Impression New bibasilar patchy airspace opacities with total opacification of right middle lobe acute represent aspiration pneumonitis. Thank you for letting us participate in the care of this patient. If you are a health care provider and have any questions regarding this report, please contact the number below. For patients who have questions please contact the health plant health care technician that requested your imaging first. Electronically signed by: Bob Escalante MD, [facility] ([phone]), at 01/08/2022 6:57 AM XR Chest One View (Exam End: 01/09/2022 9:24 PM) Impression Increased confluence of multifocal predominantly lower lobe bilateral pulmonary opacities, compatible with aspiration pneumonitis, with trace right and small left pleural effusions. I have personally reviewed the image(s) and the resident's interpretation and agree with the findings, Lorin Ruelas MD at 01/09/2022 11:00 PM Thank you for letting us participate in the care of this patient. If you are a health care provider and have any questions regarding this report, please contact the number below. For patients who have questions please contact the health plant health care technician that requested your imaging first. Electronically signed by: Lorin Ruelas MD, [facility] ([phone]), at 01/09/2022 11:00 PM MRI Brain wo Contrast (Exam End: 01/11/2022 11:54 AM) Impression Stable MRI without acute findings. Thank you for letting us participate in the care of this patient. If you are a health care provider and have any questions regarding this report, please contact the number below. For patients who have questions please contact the health plant health care technician that requested your imaging first. Electronically signed by: Renetta Sims MD, [facility] ([phone]), at 01/11/2022 12:05 PM XR Abdomen 1 view (Generic) (Exam End: 01/11/2022 2:16 PM) Impression 1. Interval placement of weighted tip enteric catheter with distal tip projecting over the body the stomach. 2. Redemonstration of multifocal opacities in the bilateral lungs suggestive of aspiration pneumonitis. I have personally reviewed the image(s) and the resident's interpretation and agree with the findings, Anjali Hill MD at 01/11/2022 2:43 PM Thank you for letting us participate in the care of this patient. If you are a health care provider and have any questions regarding this report, please contact the number below. For patients who have questions please contact the health plant health care technician that requested your imaging first. Chest One View (Exam End: 01/11/2022 3:41 PM) Impression 1. Worsening bilateral mid to lower lung zones opacities which could represent any combination of aspiration or infection and bilateral layering pleural effusions. 2. There is likely a component of pulmonary edema as well. Thank you for letting us participate in the care of this patient. If you are a health care provider and have any questions regarding this report, please contact the number below. For patients who have questions please contact the health plant health care technician that requested your imaging first. Electronically signed by: Vianey Morrison MD, [facility] ([phone]), at 01/11/2022 3:46 PM XR Chest One View (Exam End: 01/12/2022 2:35 PM) Impression 1. No interval change. 2. Stable bibasilar and perihilar airspace opacities. Thank you for letting us participate in the care of this patient. If you are a health care provider and have any questions regarding this report, please contact the number below. For patients who have questions please contact the health plant health care technician that requested your imaging first. Electronically signed by: Alon Peterson DO, [facility] ([phone]), at 01/12/2022 3:00 PM XR Abdomen 1 view (Generic) (Exam End: 01/12/2022 11:54 PM) Impression 1. Dobbhoff tube terminates within the stomach. 2. No other interval change. Thank you for letting us participate in the care of this patient. If you are a health care provider and have any questions regarding this report, please contact the number below. For patients who have questions please contact the health plant health care technician that requested your imaging first. Electronically signed by: Lorin Ruelas MD, [facility] ([phone]), at 01/13/2022 12:06 AM XR Cervical Spine AP Flexion & Extension Only (Exam End: 01/15/2022 11:30 AM) Impression Slight dynamic instability at C4-C5 and C5-C6, which could be due to facet arthropathy. Thank you for letting us participate in the care of this patient. If you are a health care provider and have any questions regarding this report, please contact the number below. For patients who have questions please contact the health plant health care technician that requested your imaging first. Cervical Spine wo Contrast (Generic) (Exam End: 01/15/2022 6:51 PM) Impression No MR evidence for acute cervical spine traumatic injury. Thank you for letting us participate in the care of this patient. If you are a health care provider and have any questions regarding this report, please contact the number below. For patients who have questions please contact the health plant health care technician that requested your imaging first. Inpatient Medications: Scheduled Meds: ??? OLANZapine zydis 2.5 mg Oral Nightly ??? melatonin 3 mg Oral Nightly ??? mirtazapine 30 mg Oral Nightly ??? lidocaine 3 patch Transdermal Q24H And ??? lidocaine 3 patch Transdermal Q24H ??? polyethylene glycoL (MIRALAX) oral powder 17 g Per NG tube Daily ??? sodium chloride 4 mL Nebulization Q6H While awake ??? enoxaparin 30 mg Subcutaneous Nightly Continuous Infusions: ??? tube feeding diet Stopped (01/14/22 1900) PRN Meds:.LORazepam, LORazepam, ondansetron ODT, bisacodyL, acetaminophen, ipratropium-albuteroL Assessment/Plan: Aziza Spain-Petlisbeth??is a??61 y.o.??female with PMH of MDD, OFELIA, migraines who was [facility] for overdose in attempted suicide req intubation for airway protection, now HDS transferred to. ?? She has overall been making excellent progress: she is no longer encephalopathic; rigidity is improving; respiratory status has improved and SpO2 is in the mid 90s on RA; she is working on PO intake and eager to work with PT/OT. Her affect is notably bright this AM. Patient will continue to need 1:1 sitting and psychiatric management due to suicide attempt. Note that the pt's code status was recorded as DNR/DNI and upon conversation w/ her /DPOA, he notesthat this was based on an AD that the pt filled out approximately 1 mo ago. He notes that they had prior discussions re this but that it's unclear if she was in a depressive state of mind at the timeof this AD. Psychiatry engaged who recommended maintaining patient full code as it is uncertain whether or not her DNR status was affected by her suicidality. Given her markedly improved mentation, will ask Psych to reassess this. Also question regarding DPOA status as cited by social work, please see their note for detailed assessment of the situation. ?? 01/17/22: No acute changes. plan to work with PT/OT as she will need to be independent to be transferred to psychiatry. Plan: #AMS 2/2 toxic ingestion predominantly sedating medications and ?serotonin syndrome vs NMS - improved - Ativan 0.5mg q6h prn agitation/nausea - APAP 650 q6h prn for pain/fever - MRI brain 01/07 and 01/11 negative ?? #MDD, OFELIA, h/o multiple suicide attempts - 1:1 sitter -??holding??home meds:??on ativan, atarax, vilazodone, zolpidem, buspirone, lamictal - psych consult > Likely voluntary admission following MR > Psych Rx per psych: Re-started remeron, added zyprexa ?? #Right middle lobe collapse likely mucus plugging: improved #Possible aspiration pneumonia: improved #Pulmonary edema - uncertain etiology: improved - Unasyn 3g 01/08-01/12 - Position on left side when possible, elevate head of bed - intermittent lasix IV 01/11 - p > Responds to 20IV > 40PO 01/15 - TTE 01/15 overall unremarkable ?? #Bilateral wrist lacerations: s/p sutures - Surgery repaired - tetanus 01/07/22 - No active bleeding, continue to monitor ?? #C-spine precautions: cleared by Ortho/Spine - C-spine radiographs and MRI 01/15 - cleared by Ortho/Spine overnight/AM of 01/16 #macrocytic anemia - Continue to monitor - no signs of active bleeding ?? 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 I agree with the details as written. The assessment and plan were formulated in discussion with me and I agree with them as documented. Major issues addressed/ Plan: Mental status at baseline. Continue PT and OT. Transfer to Psychiatrywhen less than 2 person assist. Claudy Estevez MD IPI Certification I certify that I am a [facility] credentialed attending provider with admitting privileges and that the patient meets or has met medical necessity to require an inpatient IPI level of care meeting a minimumof two midnights or is on the [facility] inpatient only procedure list (status C) due to: the patient has met Inpatient IPI criteria and is awaiting rehabilitation or [facility] facility placement withactive referrals in process * Dora Pinzon RCP - 01/16/2022 4:19 PM EDT 01/16/22 1525 Oxygen Therapy O2 Device RA SpO2 96 % Resp 14 Pt on room air erin well Pt receives 3% saline q6 wa Pt does aerobika on her own B/S diminished Good strong cough Will continue to monitor pt * Elsa Bills OT - 01/16/2022 3:00 PM EDT Occupational Therapy Treatment Note Treatment Number OT: 2 Patient Dx: Patient profile: Aziza Fields is a 61 y.o. female with a PMH significant for major depressive disorder, generalized anxiety disorder,??and??migraines, admitted on 01/06/2022 s/p suicide attempt with drug overdose and bilateral wrist lacerations (repaired). She was intubated for ai rway protection, now extubated. Hospital course is significant for serotonin syndrome. Pt was placed in a c-collar initially, but it's been since removed. ? Past Medical History Past Medical History: Diagnosis Date ??? Anxiety ? Depression ? Dyspareunia ? Irritable bowel syndrome ? Pelvic pain ? Past Surgical History Past Surgical History: Procedure Laterality Date ??? INGUINAL HERNIA REPAIR Right 2009 ??? LAPAROSCOPY ?? 1995 ?? scar tissue/ adhesions ??? PRO ELECTROCONVULSIVE THERAPY ?? 08/17/2013 ?? ECT performed by Brandie Rios MD at [facility] OR ??? PRO ELECTROCONVULSIVE THERAPY ?? 08/20/2013 ?? ECT performed by Jeremy Condon MD at [facility] OR ??? PRO ELECTROCONVULSIVE THERAPY ?? 08/21/2013 ?? ECT performed by Mitchell Bunch MD at [facility] OR ??? PRO ELECTROCONVULSIVE THERAPY ?? 08/23/2013 ?? ECT performed by Brandie Rios MD at [facility] OR ??? PRO ELECTROCONVULSIVE THERAPY ?? 08/30/2013 ?? ECT performed by Jeremy Condon MD at [facility] OR ??? PRO ELECTROCONVULSIVE THERAPY ?? 09/06/2013 ?? ECT performed by Jeremy Condon MD at [facility] OR ??? PRO ELECTROCONVULSIVE THERAPY ?? 09/27/2013 ?? ECT performed by Jeremy Condon MD at [facility] OR ??? PRO ELECTROCONVULSIVE THERAPY ?? 10/11/2013 ?? ECT performed by Jeremy Condon MD at [facility] OR ??? PRO ELECTROCONVULSIVE THERAPY ?? 10/25/2013 ?? ECT performed by Robert Gabriel MD at [facility] OR ??? PRO ELECTROCONVULSIVE THERAPY ?? 11/29/2013 ?? ECT performed by João Pratt MD at [facility] OR ??? PRO ELECTROCONVULSIVE THERAPY ?? 12/11/2013 ?? ECT performed by Mick De Leon MD at [facility] OR ??? PRO ELECTROCONVULSIVE THERAPY ?? 12/27/2013 ?? ECT performed by Brandie Rios MD at [facility] OR ?? Social History: Patient lives with her in [place], [place]. They are both retired. She ambulates w/o a device atbaseline. She reports feeling more fatigued since having Covid in Sep 2021. She has been able to manage her ADL's, but has been needing help with IADL tasks--cleaning around the house and yard work (usually enjoys gardening and using a treadmill every morning). She reports needing help because of fatigue. ?? Precautions/Special Considerations: at risk to fall, 1:1 sitter, bilateral wrist bandages, activityas tolerated ?? Interval History: ?? DHT removed yesterday ?? C-collar removed this am S: My calves are still tight, and cramp. O: Patient seen for skilled OT treatment, and demonstrated the following: ?? Self-care: ?? Pt lying in bed upon arrival. ?? Pt supervised with progressing to L side of bed with HOB raised. Pt was able to draw legs up towards chest to adjust, and pull up socks bilaterally. ?? Pt indicating need to use the bathroom. Pt was able to ambulate from the bed to the toilet in her room using walker with min/mod A using walker. Pt's stance narrow. ?? Pt was able to transfer on/off toilet with min A and cues. ?? Pt was able to void seated toilet, and complete hygiene with set up. ?? Pt unable to stand to clean hands or wash hair and comb 2' calf tightness/discomfort. Had Pt sitin chair at sink. ?? Pt required min A to wash hair with cap seated at sink, but was set up for combing hair and washing hands seated in chair. ?? Pt asking what the leg escrow agent was for, so OT instructed her in dorsi flexion stretch. ?? Cognition: ?? Behavior / Mood: alert and cooperative, in good spirits, and motivated to work with therapy. Pt acknowledging need to go to psych. ?? Alert and oriented to: person, place and situation ?? Follows commands: 1 step ?? Attention: WFL ?? Safety awareness: fair insight, acknowledges she is weak. ?? Vision:wearing glasses ?? Endurance:Limited standing tolerance, noting calf tighness/pain. ?? Vitals: 80 to 130-140 with activity. BP 108/91 after activity. SpO2 in mid 90s on RA, except when gripping walker. ?? Strength/skin: Cachetic, frail appearing. Pain: calf tightness/discomfort, instructed in dorsi flexion stretch. Education: Pt/family/caregiver education ongoing regarding: Role of occupational therapy/rehabilitation, Transfers, Assistive device/technique, ADL, Functional Mobility, Recommendations and Dischargeplanning. Staff Communication: Patient status, treatment, and mobility recommendations discussed with nursing/other staff. ASSESSMENT: Pt doing better than yesterday, but still quite weak, and needs hands on assistance of 1 when on her feet. Pt's standing tolerance remains limited by calf tightness/discomfort.. Pt hasn'heather a lot of opportunites to mobilize within room, but is starting to today. Left walker and gait belt in room. Feel Pt would benefit from another day or 2 to get more mobile before transitioning to psych. Pt will benefit from ongoing therapeutic interventions to achieve pt's and therapy goals Equipment needs at discharge: to be determined (currently benefitting from walker) Anticipated Discharge Disposition: (inpatient psych) Daily schedule / Staff Recommendations: ?? Transfer to recliner chair as appropriate with min A x 1-2, ambulate as tolerated with same (if uses a walker, may benefit from built-up electronics computer mechanic to offload pressure on hands) ?? Encourage participation in ADL's by providing set up A on tray table and physical assist only asneeded. ?? Provide assist to open containers Occupational Therapy Goals: To be achieved within 1 week, by 01/22/22: 1. Patient will be modified independent for standing grooming tasks at the sink, adaptive tools as needed for hands. 2. Patient will be modified independent with LB dressing. 3. Patient will be modified independent with toileting. 4. Patient will be modified independent with sponge bath or shower. 5. Patient will participate in further cognitive assessment as warranted. 6. Patient will verbalize understanding of energy management strategies. Therapy Frequency (OT): 1-3 more times Total Minutes, Occupational Therapy: 24 (self-care mgmt x2 (15:00-15:24)) Pager: [phone] ELSA BILLS OT 01/16/2022 Occupational Therapy Rehabilitation Department * Tamela Polk MD - 01/16/2022 8:48 AM EDT Inpatient Hospital Medicine Progress Note Patient ID: Name: Aziza Fields : 1960 PCP: Madhavi Smith APRN PCP phone number: [phone] Date of Admission: 01/06/2022 ( Hospital Day 10 days ) ID: Aziza Fields??is a??61 y.o.??female with PMH of MDD, OFELIA, migraines who was admitted tot MICU for overdose in attempted suicide req intubation for airway protection, now HDS transferred to . ?? 24 H/Subjective: - DHT removed yesterday - ON: cleared by Ortho/Spine after MRI c-spine and c-collar was removed around 0100 - This AM pt's affect is bright and states that she is feeling much improved brent w/ the c-collar removed - She states that she's ready to work w/ PT/OT and is working on PO intake Vitals: Last value Range last 24 hrs Temperature Temp: 37.2 ??C (98.9 ??F) Temp: [36.9 ??C (98.4 ??F)-37.2 ??C (98.9 ??F)] Heart Rate Heart Rate: 81 Heart Rate: [69-91] Blood Pressure BP: 98/51 BP: (94-127)/(51-74) Respiratory Rate Resp: 22 Resp: [17-25] SpO2 SpO2: 95 % SpO2: [93 %-100 %] Ins/Outs: Intake/Output Summary (Last 24 hours) at 01/16/2022 0848 Last data filed at 01/16/2022 0800 Gross per 24 hour Intake 1163 ml Output 600 ml Net 563 ml Patient Vitals for the past 168 hrs: Weight 01/16/22 0100 42.6 kg (93 lb 14.4 oz) 01/14/22 0000 45.6 kg (100 lb 8.5 oz) 01/13/22 0600 48 kg (105 lb 13.1 oz) 01/12/22 0600 48.6 kg (107 lb 2.3 oz) 01/10/22 0000 49.5 kg (109 lb 2 oz) Admit wt: 46.8 kg Physical Exam Gen: in bed in NAD. sitting up, smiling and conversant HEENT: sclera anicteric, conjunctiva nl ?? CV: RRR, no murmurs/rubs/gallops Resp: ??CTAB, no crackles/wheezes/ronchi, normal work of breathing Abd: normal bowel sounds, soft, non-tender Ext: no pedal edema Neuro: Rigidity improving. Answering questions appropriately, speaks in full sentences Skin: b/l wrist lacerations s/p sutures/dressing c/d/i Psych: smiling with bright affect today . Labs: Recent Labs 01/16/22 0127 01/15/22 0530 01/14/22 0340 01/13/22 0546 01/12/22 0100 WBC 8.3 9.4 9.0 7.7 8.5 HGB 11.5* 11.4* 11.0* 10.4* 9.4* PLATELET 440* 376* 291 261 192 Recent Labs 01/16/22 0127 01/15/22 0530 01/14/22 0340 NA 139 139 134* K 3.4* 4.0 4.1 CL 103 103 101 CO2 24 BUN 12 15 13 CREATININE 0.50* 0.36* 0.35* GLUCOSE 87 100 151 CALCIUM 9.3 9.1 9.0 MAGNESIUM 0.77 0.79 0.76 PHOS 3.6 3.3 3.8 No results for input(s): PROT, ALBUMIN, BILITOT, BILIDIR, AST, ALT, ALKPHOS in the last 168 hours. No results for input(s): INR, PT, PTT in the last 72 hours. Recent Labs 01/12/22 1350 01/11/22 0110 01/10/22 0322 CK -- 536* 1,074* TROPONINT <0.01 -- -- Microbiology: Microbiology Results (Last 30 days) Procedure Component Value Units Date/Time COVID-19 PCR [[id number]] Collected: 01/09/222054 Lab Status: Final result Specimen: Nasopharyngeal Swab Updated: 01/10/22 1442 SARS-CoV-2 RNA Not Detected Comment: This result should be interpreted in combination with the clinical observations, patient history and epidemiological information in making a final diagnosis. For testing of asymptomatic individuals, assay performance characteristics and clinical utility have not been evaluated. Testing for SARS-CoV-2 (Severe acute respiratory syndrome coronavirus 2, formerly known as 2019 novel coronavirus or 2019-nCoV) to aid in the diagnosis of COVID-19 is performed using the [employer] m SARS-CoV-2 Assay as authorized by the FDA Emergency Use Authorization (EUA). This EUA assay is intended for In-vitro Diagnostic (IVD) use with respiratory specimens such as nasopharyngeal swabs collected from individuals during the acute phase of infection. This assay is performed based on the instructions for use provided by [employer]. and additional guidance provided by [facility] and FDA. Testing is performed in the [facility] Laboratory within the Department of Pathology and Laboratory Medicine at [facility], certified under the Clinical Laboratory Improvement Amendments of 1988 (CLIA), 42 U.S.C. 263a, to perform high complexity tests. Assay performance has been verified according to clinical laboratory regulatory requirements for use with specimens collected from individuals suspected of COVID-19. Test results are provided above. A result of Not Detected indicates that the viral RNA target is not present above the limit of detection, but does not preclude SARS-CoV-2 infection. False negative results may occur if a specimen is improperly collected, transported or handled; if amplification inhibitors are present; or if inadequate numbers of viral particles are present in the specimen. When a diagnostic test is negative, the possibility of a false negative result should be considered in the context of a patient's recent exposures and the presence of clinical signs and symptoms consistent with COVID-19. A result of Detected indicates that RNA from SARS-CoV-2 was detected and the patient is infected. As required or requested by public health authorities, positive specimens may be sent for additional testing. Positive and negative predictive values for this test are highly dependent on disease prevalence. A result of Invalid indicates that neither the viral RNA targets nor the internal control target was detected. An invalid result suggests the presence of inhibitors. Recollection and re-testing is recommended in the case of an invalid result. CDC COVID-19 criteria for testing on human specimens and clinical management guidance information are available at the CDC Coronavirus Disease 2019 (COVID-19) webpage under Information for Healthcare Professionals (https://www.cdc.gov/coronavirus/2019-ncov/hcp/index.html) Additional information about this and other EUA tests can be found in provider and patient fact sheets at the following FDA website: https://www.fda.gov/medical-devices/gjgnynospwi-qelthzt-6552-gzxwm-90-oxejtztdg- eoi-ywmlunjmabruis-gmlacqo-devices/ellfa-cjdgxjcdkjm-xqkg SARS-Cov-2 RNA Source MUSIC LIBRARY ASSISTANT Swab Blood culture [[id number]] Collected: 01/07/22 0019 Lab Status: Final result Specimen: Blood Updated: 01/12/22 0701 Blood Culture No growth at 5 days. COVID-19 PCR [[id number]] Collected: 01/06/22 2359 Lab Status: Final result Specimen: Nasopharyngeal Swab Updated: 01/07/22 0324 SARS-CoV-2 RNA PCR Not Detected Comment: This result should be interpreted in combination with the clinical observations, patient history and epidemiological information. For testing of asymptomatic individuals, assay performance characteristics and clinical utility have not been evaluated. Testing for SARS-CoV-2 (Severe acute respiratory syndrome coronavirus 2, formerly known as 2019 novel coronavirus or 2019-nCoV) to aid in the diagnosis of COVID-19 is performed using the [employer] COVID-19 Direct Assay by [employer] as authorized by the FDA issued Emergency Use Authorization (EUA). This assay is intended for In-vitro Diagnostic (IVD) use with nasopharyngeal swabs collected from individuals meeting the CDC criteria for testing. The assay is performed based on the instructions for use and additional guidance provided by the FDA. Testing is performed in the Microbiology Laboratory within the Department of Pathology and Laboratory Medicine at [facility], certified under the Clinical Laboratory Improvement Amendments of 1988 (CLIA), 42 U.S.C. section 263a, to perform high complexity tests. Assay performance has been verified according to clinical laboratory regulatory requirements. Test results are provided above. A result of Not Detected indicates that the viral RNA target is not present but does not preclude SARS-CoV-2 infection. False negative results may occur if a specimen is improperly collected, transported or handled; if amplification inhibitors are present; or if inadequate numbers of viral particles are present in the specimen. A result of Detected suggests a current or recent infection and the patient is presumed to be infected. Positive and negative predictive values for this test are highly dependent on disease prevalence. A result of Invalid indicates the inability to conclusively determine the presence or absence of SARS-CoV-2 RNA in the sample which can be due to a variety of factors. Recollection is recommended in the case of an invalid result. CDC COVID-19 criteria for testing on human specimens and clinical management guidance information are available at the CDC Coronavirus Disease 2019 (COVID-19) webpage under Information for [employer] (https://www.cdc.gov/coronavirus/2019-ncov/hcp/index.html). Additional information about this and other EUA tests can be found in provider and patient fact sheets at the following FDA website: https://www.fda.gov/medical-devices/jrtqwiykziu-bdxpyfo-2596-olfzo-13-kuooovobl- dda-tcxoxdxwmjkqnw-aktbiup-devices/voxhw-saavmanqpmf-uwkl SARS-CoV-2 Source MUSIC LIBRARY ASSISTANT Swab Imaging: Results for orders placed or performed during the hospital encounter of 01/06/22 XR Chest One View (Exam End: 01/07/2022 1:35 AM) Impression * Endotracheal tube 10 cm above the emmanuel. Please advance. * Enteric tube courses below the diaphragm and beyond the [id number]. * Minimal central pulmonary vascular congestion. Thank you for letting us participate in the care of this patient. If you are a health care provider and have any questions regarding this report, please contact the number below. For patients who have questions please contact the health plant health care technician that requested your imaging first. Electronically signed by: Bob Escalante MD, [facility] ([phone]), at 01/07/2022 2:06 AM XR Abdomen 1 view (Generic) (Exam End: 01/07/2022 1:35 AM) Impression Enteric tube terminates in the gastric antrum. Thank you for letting us participate in the care of this patient. If you are a health care provider and have any questions regarding this report, please contact the number below. For patients who have questions please contact the health plant health care technician that requested your imaging first. Electronically signed by: Bob Escalante MD, [facility] ([phone]), at 01/07/2022 2:07 AM XR Pelvis (Generic) (Exam End: 01/07/2022 7:10 AM) Impression No acute fracture or dislocation. Thank you for letting us participate in the care of this patient. If you are a health care provider and have any questions regarding this report, please contact the number below. For patients who have questions please contact the health plant health care technician that requested your imaging first. Electronically signed by: Bob Escalante MD, [facility] ([phone]), at 01/07/2022 8:[address] Head wo Contrast (Generic) (Exam End: 01/07/2022 5:07 AM) Impression No acute intracranial pathology. Preliminary report signed by: Andrea Machuca at 01/07/2022 5:16 AM I have personally reviewed the image(s) and the resident's interpretation and agree with the findings, Bob Escalante MD at 01/07/2022 5:23 AM Thank you for letting us participate in the care of this patient. If you are a health care provider and have any questions regarding this report, please contact the number below. For patients who have questions please contact the health plant health care technician that requested your imaging first. Electronically signed by: Bob Escalante MD, [facility] ([phone]), at 01/07/2022 5:[address] Cervical Spine wo Contrast (Exam End: 01/07/2022 5:07 AM) Impression * No acute fracture or dislocation. * Minimal C3-C4, C4-C5 and C5-C6 retrolistheses. * Multilevel degenerative changes as detailed above. Preliminary report signed by: Andrea Machuca at 01/07/2022 5:23 AM I have personally reviewed the image(s) and the resident's interpretation and agree with the findings, Bob Escalante MD at 01/07/2022 5:28 AM Thank you for letting us participate in the care of this patient. If you are a health care provider and have any questions regarding this report, please contact the number below. For patients who have questions please contact the health plant health care technician that requested your imaging first. Electronically signed by: Bob Escalante MD, [facility] ([phone]), at 01/07/2022 5:28 AM MRI Brain wo Contrast (Exam End: 01/07/2022 4:18 PM) Impression No evidence for acute process. Thank you for letting us participate in the care of this patient. If you are a health care provider and have any questions regarding this report, please contact the number below. For patients who have questions please contact the health plant health care technician that requested your imaging first. Chest One View (Exam End: 01/08/2022 6:53 AM) Impression New bibasilar patchy airspace opacities with total opacification of right middle lobe acute represent aspiration pneumonitis. Thank you for letting us participate in the care of this patient. If you are a health care provider and have any questions regarding this report, please contact the number below. For patients who have questions please contact the health plant health care technician that requested your imaging first. Electronically signed by: Bob Escalante MD, [facility] ([phone]), at 01/08/2022 6:57 AM XR Chest One View (Exam End: 01/09/2022 9:24 PM) Impression Increased confluence of multifocal predominantly lower lobe bilateral pulmonary opacities, compatible with aspiration pneumonitis, with trace right and small left pleural effusions. I have personally reviewed the image(s) and the resident's interpretation and agree with the findings, Lorin Ruelas MD at 01/09/2022 11:00 PM Thank you for letting us participate in the care of this patient. If you are a health care provider and have any questions regarding this report, please contact the number below. For patients who have questions please contact the health plant health care technician that requested your imaging first. Electronically signed by: Lorin Ruelas MD, [facility] ([phone]), at 01/09/2022 11:00 PM MRI Brain wo Contrast (Exam End: 01/11/2022 11:54 AM) Impression Stable MRI without acute findings. Thank you for letting us participate in the care of this patient. If you are a health care provider and have any questions regarding this report, please contact the number below. For patients who have questions please contact the health plant health care technician that requested your imaging first. Electronically signed by: Renetta Sims MD, [facility] ([phone]), at 01/11/2022 12:05 PM XR Abdomen 1 view (Generic) (Exam End: 01/11/2022 2:16 PM) Impression 1. Interval placement of weighted tip enteric catheter with distal tip projecting over the body the stomach. 2. Redemonstration of multifocal opacities in the bilateral lungs suggestive of aspiration pneumonitis. I have personally reviewed the image(s) and the resident's interpretation and agree with the findings, Anjali Hill MD at 01/11/2022 2:43 PM Thank you for letting us participate in the care of this patient. If you are a health care provider and have any questions regarding this report, please contact the number below. For patients who have questions please contact the health plant health care technician that requested your imaging first. Chest One View (Exam End: 01/11/2022 3:41 PM) Impression 1. Worsening bilateral mid to lower lung zones opacities which could represent any combination of aspiration or infection and bilateral layering pleural effusions. 2. There is likely a component of pulmonary edema as well. Thank you for letting us participate in the care of this patient. If you are a health care provider and have any questions regarding this report, please contact the number below. For patients who have questions please contact the health plant health care technician that requested your imaging first. Electronically signed by: Vianey Morrison MD, [facility] ([phone]), at 01/11/2022 3:46 PM XR Chest One View (Exam End: 01/12/2022 2:35 PM) Impression 1. No interval change. 2. Stable bibasilar and perihilar airspace opacities. Thank you for letting us participate in the care of this patient. If you are a health care provider and have any questions regarding this report, please contact the number below. For patients who have questions please contact the health plant health care technician that requested your imaging first. Electronically signed by: Alon Peterson DO, [facility] ([phone]), at 01/12/2022 3:00 PM XR Abdomen 1 view (Generic) (Exam End: 01/12/2022 11:54 PM) Impression 1. Dobbhoff tube terminates within the stomach. 2. No other interval change. Thank you for letting us participate in the care of this patient. If you are a health care provider and have any questions regarding this report, please contact the number below. For patients who have questions please contact the health plant health care technician that requested your imaging first. Electronically signed by: Lorin Ruelas MD, [facility] ([phone]), at 01/13/2022 12:06 AM XR Cervical Spine AP Flexion & Extension Only (Exam End: 01/15/2022 11:30 AM) Impression Slight dynamic instability at C4-C5 and C5-C6, which could be due to facet arthropathy. Thank you for letting us participate in the care of this patient. If you are a health care provider and have any questions regarding this report, please contact the number below. For patients who have questions please contact the health plant health care technician that requested your imaging first. Cervical Spine wo Contrast (Generic) (Exam End: 01/15/2022 6:51 PM) Impression No MR evidence for acute cervical spine traumatic injury. Thank you for letting us participate in the care of this patient. If you are a health care provider and have any questions regarding this report, please contact the number below. For patients who have questions please contact the health plant health care technician that requested your imaging first. Inpatient Medications: Scheduled Meds: ??? OLANZapine zydis 2.5 mg Oral Nightly ??? melatonin 3 mg Oral Nightly ??? mirtazapine 30 mg Oral Nightly ??? lidocaine 3 patch Transdermal Q24H And ??? lidocaine 3 patch Transdermal Q24H ??? polyethylene glycoL (MIRALAX) oral powder 17 g Per NG tube Daily ??? sodium chloride 4 mL Nebulization Q6H While awake ??? enoxaparin 30 mg Subcutaneous Nightly Continuous Infusions: ??? tube feeding diet Stopped (01/14/221899) PRN Meds:.LORazepam, LORazepam, ondansetron ODT, bisacodyL, acetaminophen, ipratropium-albuteroL Assessment/Plan: Aziza Spain-Petit??is a??61 y.o.??female with PMH of MDD, OFELIA, migraines who was admitted to theMICU for overdose in attempted suicide req intubation for airway protection, now HDS transferred to. ?? She has overall been making excellent progress: she is no longer encephalopathic; rigidity is improving; respiratory status has improved and SpO2 is in the mid 90s on RA; she is working on PO intake and eager to work with PT/OT. Her affect is notably bright this AM. Patient will continue to need 1:1 sitting and psychiatric management due to suicide attempt. Note that the pt's code status was recorded as DNR/DNI and upon conversation w/ her /DPOA, he notesthat this was based on an AD that the pt filled out approximately 1 mo ago. He notes that they had prior discussions re this but that it's unclear if she was in a depressive state of mind at the timeof this AD. Psychiatry engaged who recommended maintaining patient full code as it is uncertain whether or not her DNR status was affected by her suicidality. Given her markedly improved mentation, will ask Psych to reassess this. Also question regarding DPOA status as cited by social work, please see their note for detailed assessment of the situation. ?? 01/16/22: plan to work with PT/OT as she will need to be independent to be transferred to psychiatry. Plan: #AMS 2/2 toxic ingestion predominantly sedating medications and ?serotonin syndrome vs NMS - improved - Ativan 0.5mg q6h prn agitation/nausea - APAP 650 q6h prn for pain/fever - MRI brain 01/07 and 01/11 negative ?? #MDD, OFELIA, h/o multiple suicide attempts - 1:1 sitter -??holding??home meds:??on ativan, atarax, vilazodone, zolpidem, buspirone, lamictal - psych consult > Likely voluntary admission following MR > Psych Rx per psych: Re-started remeron, added zyprexa ?? #Right middle lobe collapse likely mucus plugging: improved #Possible aspiration pneumonia: improved #Pulmonary edema - uncertain etiology: improved - Unasyn 3g 01/08-01/12 - Position on left side when possible, elevate head of bed - intermittent lasix IV 01/11 - p > Responds to 20IV > 40PO 01/15 - TTE 01/15 overall unremarkable ?? #Bilateral wrist lacerations: s/p sutures - Surgery repaired - tetanus 01/07/22 - No active bleeding, continue to monitor ?? #C-spine precautions: cleared by Ortho/Spine - C-spine radiographs and MRI 01/15 - cleared by Ortho/Spine overnight/AM of 01/16 #macrocytic anemia - Continue to monitor - no signs of active bleeding ?? #Other - DVT ppx: lovenox - GI ppx: H2B - Diet: regular per CANAL BOAT OPERATOR - Dispo: pending PT/OT then psychiatry transfer Tamela Polk MD Green Team (Pager [phone]) 01/16/22 Associated attestation - Claudy Estevez MD - 01/16/2022 7:38 PM EDT I have seen the patient and reviewed the resident's above history and physical exam. I agree with the details as written. The assessment and plan were formulated in discussion with me and I agree with them as documented. Major issues addressed/ Plan: Aziza's mental status appear closer to her baseline. Plan to continue PT and OT. Transfer to inpatient psychiatry when more independent of ADLs Claudy Estevez MD IPI Certification I certify that I am a [facility] credentialed attending provider with admitting privileges and that the patient meets or has met medical necessity to require an inpatient IPI level of care meeting a minimumof two midnights or is on the [facility] inpatient only procedure list (status C) due to: SI c/b serotoninsyndrome requiring PT and OT prior to transfer to inpatient psychiatry * Dora Pinzon ELECTRONIC INTELLIGENCE OFFICER - 01/15/2022 5:11 PM EDT 01/15/22 1424 Oxygen Therapy O2 Device RA SpO2 96 % Resp 20 Pt on room air erin well Pt has orders for duoneb prn q4 3% saline q 6 and aerobika B/S diminished Pt able to do aerobika well Will continue to monitor pt * Stewart Malloy MD - 01/15/2022 4:41 PM EDT Brief General Surgery Progress Note Aziza Fields is a 61 y.o. female who [place] [facility] [place] after she was found down in her shed. Her injuries included bilateral wrist lacerations on tertiary exam which wererepaired by Trauma Surgery. CT cervical spine was negative for acute fracture on 01/07 but collar was unable to be cleared clinically given patient's mental status. Patient was more cooperative with exam on evaluation but continues to have persistent bony tenderness over the spinous processes of themid-cervical spine. - Recommend XR cervical spine flexion-extension films for further evaluation - General Surgery will continue to follow along with you - Above plan discussed with Dr. Lynne Malloy MD 01/14/2022 Pager: [phone] ADDENDUM 01/15: XR Cervical Spine AP Flexion & Extension Only 01/15/2022 Slight dynamic instability at C4-C5 and C5-C6, which could be due to facet arthropathy. - Maintain C-collar and C-spine precautions - Recommend MRI cervical spine - Recommend Spine Surgery consultation - Above plan discussed with Dr. Batista * Alexia Sanchez CANAL BOAT OPERATOR - 01/15/2022 3:39 PM EDT Speech Therapy Note Patient Profile: Aziza Fields??is a??61 y.o.??female with PMH of MDD, OFELIA, migraines who??was admitted to the MICU for??overdose in attempted suicide requiring intubation for airway protection. Now extubated. CANAL BOAT OPERATOR has been following for dysphagia management. Interval History: XR Cervical Spine completed revealing the following: Slight dynamic instability at C4-C5 and C5-C6, which could be due to facet arthropathy. MRI scheduled for today. Cervical collar remains in place. Subjective: Patient alert at the time of this visit. Reports changes in taste following covid with associated impact on PO intake. Objective: Pt seen for dysphagia management and demonstrated the following: Pain: Pt did not demonstrate overt s/s of discomfort. Respiratory Status: Room air Current Diet: dysphagia soft, thin liquids Feeding / Oral Care Status: Pt is independent Cognitive-Linguistic Status: alert, oriented to person, place, and time Command Following: Follows multi-step commands Positioning: HOB at 85 degrees, cervical collar remains in place Oral / Laryngeal Mechanism Clinical Assessment: ?? Lingual: Tongue protrudes midline with functional ROM on all planes. ?? Labial / Buccal: Equal protrusion/retraction bilaterally. ?? Velar: Uvula is midline, velar elevation is present. ?? Sensation: Appears grossly intact. ?? Vocal fold function and airway protection: Strong volitional cough. Voice is soft. ?? Speech Intelligibility: WFL ?? Mucosa: WFL ?? Dentition: present and adequate Bolus Presentation(s): ?? Thin liquid via straw ?? Dysphagia soft ?? Regular solid Oral Preparatory Phase: ?? Mastication: Prolonged, disorganized, impacted by cervical collar ?? Oral Transit: Appears timely ?? Bolus Cohesion: WFL ?? Labial Seal / Loss: Adequate seal, negative loss ?? Oral Stasis: Negative Pharyngeal Phase: ?? Laryngeal Elevation: Present ?? Vocal quality change: Negative ?? Cough / throat clear: Negative ?? Pt. complaint of food getting stuck: Negative ?? Fatigue across trials: No ?? Respiratory rate and respiratory swallow pattern: WFL Esophageal Phase: ?? Appears to be WFL, No overt clinical s/s of esophageal phase dysphagia noted during this evaluation. Compensatory Techniques: Pt was able to return demonstrate effective use of strategies. ?? Education: Patient educated on results and recommendations, and verbalized understanding. Patient status, treatment and swallow recommendations were discussed with nursing. Assessment: Pt was seen today for a follow-up CANAL BOAT OPERATOR visit. Patient continues with cervical collar with associated impact on mandibular range of motion. PO trials performed with thin liquids, dysphagia soft solids, and regular solids. Patient exhibited prolonged, yet functional mastication and oral manipulation of bolus material with solids, which appeared to be primarily related to cervical collar. No overt s/s of aspiration or pharyngeal dysphagia. Patient with improved awareness today, was independently taking small bites and chewing food thoroughly. Patient appears appropriate for a diet upgrade to regular solids with regular liquids with aspiration precautions/safe swallow guidelines in [facility]. CANAL BOAT OPERATOR will continue to follow and make additional recommendations as indicated. Pt will benefit from continued therapeutic interventions to achieve therapy goals. Diagnosis: mild oral dysphagia Recommendations: Diet: Regular solids, Thin liquids PO medications: whole with sip of liquid Aspiration precautions: One to one direct supervision during all PO intake to ensure feeding strategies are followed Feed only when alert Upright position during meals and for at least 30 mins following Small sips and bites while eating Slow rate; chew food thoroughly and swallow between bites Excellent oral care ?? Pt will benefit from continued CANAL BOAT OPERATOR services while hospitalized Speech Therapy Goals: Pt will tolerate least restrictive diet without evidence of dysphagia / aspiration. Pt / caregiver will be independent with aspiration precautions, diet modifications, and safe swallowing strategies. Plan: Therapy Frequency (CANAL BOAT OPERATOR Eval): 2-3 times/wk Pt./family are in agreement with treatment plan. Total Minutes (Speech Language Pathology): 24 Alexia Sanchez MS, [facility]-CANAL BOAT OPERATOR Speech-Language Pathologist Rehabilitation Medicine Pager # [phone] * Rona Balderas RN - 01/15/2022 3:04 PM EDT OUTCOME EVALUATION NOTE: OUTCOME SUMMARY: VSS on RA. Yuan removed, now voiding on bedpan/toilet. CANAL BOAT OPERATOR re-evaluated today and cleared for regular diet, DHT removed. PT/OT eval at the bedside, patient x 2 assist up to chair and toilet. MRI obtained and pending read. PLAN MOVING FORWARD: - Optimize nutrition - Mobilize OOB as able * Darleen Quinones PT - 01/15/2022 1:40 PM EDT Physical Therapy Evaluation Patient profile: Aziza Fields is a 61 y.o. female with a PMH significant for major depressive disorder, generalized anxiety disorder, and migraines who was admitted to the ICU for suicide attempt and serotonin syndrome. 24 Hour Events/subjective: -Trauma called to remove C-spine precautions, ordered xray for bony tenderness. -Cleared by speech for thin liquids yesterday. -Psych assessment recommended benefit from psych admission and ECT with medically d/c. -20mg IV Lasix given yesterday Patient with the following active problems: Past Medical History: Diagnosis Date Anxiety Depression Dyspareunia Irritable bowel syndrome Pelvic pain Past Surgical History: Procedure Laterality Date INGUINAL HERNIA REPAIR Right 2010 LAPAROSCOPY 1995 scar tissue/ adhesions PRO ELECTROCONVULSIVE THERAPY 08/17/2013 ECT performed by Brandie Rios MD at [facility] OR PRO ELECTROCONVULSIVE THERAPY 08/20/2013 ECT performed by Jeremy Condon MD at [facility] OR PRO ELECTROCONVULSIVE THERAPY 08/21/2013 ECT performed by Mitchell Bunch MD at [facility] OR PRO ELECTROCONVULSIVE THERAPY 08/23/2013 ECT performed by Brandie Rios MD at [facility] OR PRO ELECTROCONVULSIVE THERAPY 08/30/2013 ECT performed by Jeremy Condon MD at [facility] OR PRO ELECTROCONVULSIVE THERAPY 09/06/2013 ECT performed by Jeremy Condon MD at [facility] OR PRO ELECTROCONVULSIVE THERAPY 09/27/2013 ECT performed by Jeremy Condon MD at [facility] OR PRO ELECTROCONVULSIVE THERAPY 10/11/2013 ECT performed by Jeremy Condon MD at [facility] OR PRO ELECTROCONVULSIVE THERAPY 10/25/2013 ECT performed by Robert Gabriel MD at [facility] OR PRO ELECTROCONVULSIVE THERAPY 11/29/2013 ECT performed by João Pratt MD at [facility] OR PRO ELECTROCONVULSIVE THERAPY 12/11/2013 ECT performed by Mick De Leon MD at [facility] OR PRO ELECTROCONVULSIVE THERAPY 12/27/2013 ECT performed by Brandie Rios MD at [facility] OR Social History: Pt lives with her in [place], [place]. 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 She reports more fatigue and inability to do outdoor chores like gardening since she had COVID. I wasn'teating well. She does not use a device at baseline. She ws indep with her ADL's. is retired and can assist as needed upon d/c. Precautions/Special Considerations: DHT; c-collar ( waiting film results to d/c collar per RN; spine cleared to mobilize with c-collar); at risk to fall; B writ bandages; 1:1 Sitter Mobility and Positioning Recommendations: OOb to chair and toilet with 2 hand held assist or rolling walker Ambulate with 1-2 assist and rolling walker Please encourage up to chair for meal times as able. Subjective: ??? It feels good to move. My calves are tight.?? Objective: Pt seen for evaluation today in the ICU. Pt in bed at start of session; in chair at end of session. and Sitter present Pain: reports pain in B calves in standing Vital Signs: HR: 90-100 at ret; 130 with activity; BP: 129/64 Mental Status: Alert. Talkative. Good insight into deficits. Motivated to participate. A & O x 4. Vision: Wears glasses Skin: B wrists bandaged; did not observe incisions Musculoskeletal: ROM: WFL: DF painful calf stretch Strength: B knee ext 4/5; hip flex 4/5; ankle DF/PF; 4/5 Sensation: intact Bed Mobility: Supine to Sit: supervision with HOB elevated Sit to Supine: not assessed Transfers: Sit to Stand: min assist x 2; B hand held assist; blocking feet. Stood from EOB and from toilet. Stand to Sit: cg-min assist x 2 Sit to stand x 4 times during session. Gait: 10 steps from bed to toilet with B hand held assist; pt leaning posteriorly but able to step to toilet; min assist x 2; cues to shift weight forward. 10 feet from toilet to chair with min assist x 2, B hand held assist. Stairs: not assessed Balance: Sitting Static: fair; leans posteriorly but without LOB Sitting Dynamic: fair; able to perform hygiene on toilet Standing Static: poor; leans posteriorly Standing Dynamic / Gait: poor; leans posteriorly Education: Educated on safety, importance of mobility and role of PT. Issued leg escrow agent for B DF stretch. Assessment: Aziza Fields was seen today for physical therapy evaluation. Pt presents today in ICU with impaired strength, impaired transfers, impaired gait, impaired balance and impaired activity tolerance from her baseline. Aziza is very motivated to mobilize and was very appreciative to beOOB to toilet and chair. C-collar in place but films have been performed and waiting read for possible d/c of collar. Aziza leans posteriorly in standing and with transfers. May benefit from a walker.She will benefit from frequent opportunities to be OOB with nursing over the weekend. She will d/c to an inpatient psych program upon d/c. Discharge Recommendations: Based on the current findings, Anticipated Discharge Disposition (PT): (inpatient pysch admission) when medically ready for hospital discharge. Consult Recommendations: OT in place Equipment needs: TBD Goals: To be achieved by 01/23/22: Pt. to perform bed mobility independently. Pt. to perform sit to stand and bed to chair transfers modified independent using LRD . Pt. to ambulate 150 feet modified independently using a LRD . Pt. to ambulate up/down 6 step/stairs using one rail with supervision ( will not need to perform tod/c to inpatient psych) Plan: Therapy Frequency (PT): 1-3 more times for therapy including balance training, bed mobility training, gait training, patient/family education, stair training, strengthening, and transfer training. Patient/family understand and agree with plan as stated above. 2017 PT Evaluation Code Rationale: Diagnosis & Pertinent Co-Morbidities, personal factors, and present illness affecting Plan of Care: (see above); Additional personal factors or co- morbidities that impact plan: Total # of Factors: 0 1-2 3+ x Examination of body system impairments, functional limitations and behaviors, and/or participation restrictions. Addressing 1-2 elements Addressing 3 + elements x Addressing 4 + elements Clinical presentation: See assessment above. Stable/Uncomplicated Evolving/Fluctuating Symptoms Unstable/Unpredictable x Clinical decision making of moderate complexity based on pt's functional performance as outlined inthis evaluation. Time IN/OUT: 1230-100 Total time: 30 mins (eval) DARLEEN QUINONES, PT Pager: [phone] Physical Therapy Inpatient Rehabilitation Department * Amaris Jain, OT - 01/15/2022 12:30 PM EDT Occupational Therapy Evaluation Patient profile: Aziza Fields is a 61 y.o. female with a PMH significant for major depressive disorder, generalized anxiety disorder,??and??migraines, admitted on 01/06/2022 s/p suicide attempt with drug overdose and bilateral wrist lacerations (repaired). She was intubated for airway protection, now extubated. Hospital course is significant for serotonin syndrome. Pt was placed in a c-collar w/ Xray pending. ?? 24 Hour Events/subjective: -Trauma called to remove C-spine precautions, ordered xray for bony tenderness.?? -Cleared by speech for thin liquids??yesterday.?? -Psych assessment recommended benefit from psych admission and ECT with medically d/c. -20mg IV Lasix given yesterday Past Medical History: Diagnosis Date ??? Anxiety ??? Depression ??? Dyspareunia ??? Irritable bowel syndrome ??? Pelvic pain Past Surgical History: Procedure Laterality Date ??? INGUINAL HERNIA REPAIR Right 2009 ??? LAPAROSCOPY 1996 scar tissue/ adhesions ??? PRO ELECTROCONVULSIVE THERAPY 08/17/2013 ECT performed by Brandie Rios MD at [facility] OR ??? PRO ELECTROCONVULSIVE THERAPY 08/20/2013 ECT performed by Jeremy Condon MD at [facility] OR ??? PRO ELECTROCONVULSIVE THERAPY 08/21/2013 ECT performed by Mitchell Bunch MD at [facility] OR ??? PRO ELECTROCONVULSIVE THERAPY 08/23/2013 ECT performed by Brandie Rios MD at [facility] OR ??? PRO ELECTROCONVULSIVE THERAPY 08/30/2013 ECT performed by Jeremy Condon MD at [facility] OR ??? PRO ELECTROCONVULSIVE THERAPY 09/06/2013 ECT performed by Jeremy Condon MD at [facility] OR ??? PRO ELECTROCONVULSIVE THERAPY 09/27/2013 ECT performed by Jeremy Condon MD at [facility] OR ??? PRO ELECTROCONVULSIVE THERAPY 10/11/2013 ECT performed by Jeremy Condon MD at [facility] OR ??? PRO ELECTROCONVULSIVE THERAPY 10/25/2013 ECT performed by Robert Gabriel MD at [facility] OR ??? PRO ELECTROCONVULSIVE THERAPY 11/29/2013 ECT performed by João Pratt MD at [facility] OR ??? PRO ELECTROCONVULSIVE THERAPY 12/11/2013 ECT performed by Mick De Leon MD at [facility] OR ??? PRO ELECTROCONVULSIVE THERAPY 12/27/2013 ECT performed by Brandie Rios MD at [facility] OR Social History: Patient lives with her in [place], [place]. They are both retired. She ambulates w/o a device atbaseline. She reports feeling more fatigued since having Covid in Sep 2021. She has been able to manage her ADL's, but has been needing help with IADL tasks--cleaning around the house and yard work (usually enjoys gardening and using a treadmill every morning). She reports needing help because of fatigue. Precautions/Special Considerations: at risk to fall, 1:1 sitter, c-collar at all times (can maintain own c-spine precautions: does not need to be supine for collar care and occiput assessments), bilateral wrist bandages, activity as tolerated, DHT Subjective: I have arthritis, so Tunde helps with opening things. Objective: Seen today for OT evaluation in collaboration with PT. Pt's , Tunde was present. 1:1 present. Cognitive Status/Behavior: ?? Behavior / Mood: alert and cooperative ?? Alert and oriented to: person, place, time and situation ?? Follows commands: 1 step and 100% of the time ?? Attention: grossly WFL ?? Safety awareness: requiring 1:1 sitter (psychiatry) ?? Appears to be clearing, may warrant further assessment Vision & Perception: ?? corrective lenses multimedia services coordinator-reports she only has an old prescription Communication: WFL, slightly hypophonic Range of motion, strength, coordination: Hand dominance: right UE status: shoulder flex to ~130 deg, grossly 4/5, deconditioned, wrists bandaged, moving fingers; marketing associate: 4/5 on L, 3+/5 on R, finger ext: 3+/5 bilaterally, finger adduction/abduction: 4/5 on R, 3+/5 on L; + arthritis in fingers with impaired coordination at baseline LE limitations: stiffness in ankles/calves with difficulty standing w/ flat feet (tending to lean posteriorly) Sensation: denied numbness/tingling during this session/intact to light touch, reports previously had intermittent tingling in L ulnar digits (3-5) Activities of Daily Living: Self-feeding: at end of session, left in the chair w/ table and lunch in front of her-able to demonstrate ability to self-feed; assist to open containers ( reports this is not new) Grooming: seated w/ setup Dressing: unable to draw Le's up to reach her feet, may need assist for fine motor coordination Bathing: anticipate mod A 2/2 standing portions Toileting: Transfer: transferred to the toilet in ICU room (under counter) w/ min A x 2 and FWW tending to lean posteriorly because of calf stiffness Hygiene: completed seated w/ setup, would be min-mod A for standing needs Functional Mobility: Supine to sit: to R EOB, min A Sit to stand: min A x 2 with handhold assist; leaning posteriorly because of tight gastroc/dorsiflexion Ambulation: pt took 4-5 steps to/from toilet w/ min A x 2 leaning posteriorly Stand to sit: min A, cues for positioning and safety Pt was left sitting up in the chair for lunch- and 1:1 sitter present, call button in lap Balance: Sitting balance: good Standing balance: min A x 2 (leaning posteriorly) Vitals: HR: 81-112, then up to 130's on the toilet-RN aware, Sp02: 95% on RA, BP: 127/72 Pain: reported headache and mild pain when squeezing hands, did not rate Skin: bilateral wrist bandages in place, not formally assessed Education: Patient and her were educated on Role of occupational therapy/rehabilitation, Transfers, ADL, Positioning, Safety, Precautions/Protocol, Functional Mobility, Balance, Recommendations, Family training and Discharge planning and they will benefit from reinforcement. Patient status, treatment, and mobility recommendations discussed with nursing. Assessment: Pt was seen for an occupational therapy evaluation. Aziza Paul presents with the following performance skill deficits and client factors: increased pain, decreased activity tolerance, decreased flexibility/ROM, cachexia, decreased strength, decreased standing balance, cognitive deficits, decreased motor control, decreased postural control, deconditioning, precautions/bracing(c-collar), compromised mobility status, and impaired coping. Pt was able to take steps to a toilet, but presents with very tight ankles (plantarflexion) with tendency to lean posteriorly or standingon her tiptoes. She may present with mild weakness in her L hand intrinsics and flexors (3+/5) (unclear if r/t injury/edema or prior arthritis). Her was present and supportive during session.Anticipate she will continue to progress functionally with ongoing opportunities to mobilize and participate in her care. She may benefit from assistance to open containers given pain at wrists. Planis for pt to transfer to inpatient psych when medically appropriate. Pt will benefit from further inpatient OT interventions to address performance deficits and maximize participation and independence with occupations of daily living. Equipment Recommendations: Equipment Needs Upon Discharge (OT): to be determined Anticipated Discharge Disposition (OT): (inpatient psych) Other Recommendations: ?? Transfer to recliner chair as appropriate with min A x 2, ambulate as tolerated with same (if uses a walker, may benefit from built-up electronics computer mechanic to offload pressure on hands) ?? Encourage participation in ADL's by providing set up A on tray table and physical assist only asneeded. ?? Provide assist to open containers Other Recommendations: No other consults recommended at this time Goals: To be achieved within 1 week, by 01/22/22: 1. Patient will be modified independent for standing grooming tasks at the sink, adaptive tools as needed for hands. 2. Patient will be modified independent with LB dressing. 3. Patient will be modified independent with toileting. 4. Patient will be modified independent with sponge bath or shower. 5. Patient will participate in further cognitive assessment as warranted. 6. Patient will verbalize understanding of energy management strategies. Plan: OT: Therapy Frequency (OT): 1-3 more times Planned OT interventions: Role of occupational therapy/rehabilitation, Transfers, Assistive device/technique, Adaptive equipment training, ADL, Exercise, Breathing exercises, Positioning, Safety, Precautions/Protocol, Functional Mobility, Activity pacing/Energy conservation, Home Management, Balance, Recommendations, Family training and Discharge planning. Total Minutes, Occupational Therapy: 30 (initial evaluation, 12:30-1:00) OT Evaluation Code Rationale: ?? Diagnosis & Pertinent Co-Morbidities affecting Plan of Care: see PMHx ?? Occupational Profile & Client History: Brief Expanded Extensive x ?? Assessment of Occupational Performance: 1-3 performance deficits 3-5 performance deficits x 5 + performance deficits ?? Clinical Decision Making: Low Moderate High x Clinical decision making of moderate complexity using standardized patient assessment instrument and measurable assessment of functional outcome. Pager: [phone] AMARIS JAIN OT 01/15/2022 Occupational Therapy Rehabilitation Department * Shannon Henson, RD - 01/15/2022 10:19 AM EDT Nutrition Progress Note Aziza Fields is a 61 y.o. female with PMH of MDD, OFELIA, migraines who presents with overdosein attempted suicide. Reason for intervention: Follow up and ICU Tube-feeding Nutrition Recommendations: Dysphagia soft, thin liquids per CANAL BOAT OPERATOR recs Encourage good po intake Monitor judy Recommend daily multivitamin with minerals. Please weigh daily. Active Orders Diet Dysphagia Soft Diet Frequency: Effective Now Number of Occurrences: Until Specified Enteral access: DHT 01/12/22 Oxygen Therapy/airway: O2 Device: None (Room air) Lab Results Component Value Date NA 139 01/15/2022 K 4.0 01/15/2022 CL 103 01/15/2022 CO2 24 01/15/2022 BUN 15 01/15/2022 CREATININE 0.36 (L) 01/15/2022 ESTGFR 116 01/15/2022 MAGNESIUM 0.79 01/15/2022 CALCIUM 9.1 01/15/2022 PHOS 3.3 01/15/2022 AST Not Perf 01/07/2022 ALT 70 (H) 01/07/2022 ALKPHOS 39 01/07/2022 BILITOT 0.2 01/07/2022 No results found for: POCGLU Skin Status: Shift Pressure Injury Prevention Occiput: No Injury Thoracic Spine: No Injury Sacral: Existing Injury Ischial - left: No Injury Ischial - right: No Injury Heel - left: No Injury Heel - right: No Injury Elbow - left: No Injury Elbow - right: No Injury Device Sites: NGT, O2 sat monitor, IV sites, yuan, ECG Leads, BP Cuff Other Sites: ID band Relevant medications: remeron, miralax Last Bowel Movement: 01/14/22 Admit Weight: 46.8 kg Estimated body mass index is 16.23 kg/m?? as calculated from the following: Height as of this encounter: 167.6 cm (5' 5.98). Weight as of this encounter: 45.6 kg (100 lb 8.5 oz). [place] Body Weight: 59kg Usual Body Weight: 115lbs per spouse Tunde on 01/08 Weight loss of ~8% body weight x 3 months based Tunde's recall and current admission weight. Wt Readings from Last 10 Encounters: 01/14/22 45.6 kg (100 lb 8.5 oz) 01/07/22 46.8 kg (103 lb 2.8 oz) 11/20/21 44.5 kg (98 lb) 03/15/18 56.7 kg (125 lb) 10/16/15 54.9 kg (121 lb) 09/30/15 53.5 kg (118 lb) 07/12/12 55.3 kg (122 lb) 07/11/12 55.3 kg (122 lb) 07/07/12 55.3 kg (122 lb) 07/06/12 55.3 kg (122 lb) Assessment: Estimated needs: Calories: 9151-9980 (30-35 kcal/kg)- for weight gain, start slow given risk for refeeding Protein: 74-99 grams (1.5-2g/kg)- pt with stage 2 pressure wound Nutrition Focused Physical Exam (NFPE): Not performed Pt not appropriate for exam at this time w/ visual temporal wasting and overall cachectic appearance. Nutrition intake and intake history/Interview: Diet advanced yesterday to dysphagia soft per CANAL BOAT OPERATOR recs, no lunch ordered but dinner ordered for pt yesterday. TF held since 01/14 and DHT removed today. Per nursing documentation, pt had a couple bites of scrambled eggs and <50% of a popsicle for breakfast today. Continue to encourage good po intake now that DHT is removed, will follow up with pt. 01/13: Pt not appropriate for interview at this time. She is currently tolertaing feeds w/o issue. Continue to monitor lytes d/t risk of refeeding. 01/11: Pt not appropriate for interview at this time.TF recs pended per consult. 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 01/08:Airplane Inspector spoke to Aziza's spouse (Tunde) on the phone today. He reports aziza has a terrible homediet, eating only bran flakes for breakfast, skipping lunch and eating fried eggs for supper (estimate this provides a maximum of 550 calories daily- ~38% EER). He reports Aziza has always maintained a low body weight and never wanted to weigh more than 120lbs, she never ate a lot but previously ate enough to sustain. Since she had COVID in September, she has difficulty tasting foods and only eats bran flakes, eggs, peas, asparagus, salsa and veggie burgers. Since September her intake has significantly declined and Tunde reports she now weights less than 100lbs, suggesting about 15lb weight loss in the past 3 months. Tunde tells typewriter operator automatic Aziza has had ONS in the past but did not tolerate them. Ifunable to advance to PO diet, tube feed recs outlined above. Protein-calorie Malnutrition: Not enough data to assess though at risk given low BMI, subjective report of weight loss and poor PO intake. (Issa bartlett al, JPEN J Parenteral Enteral Nutr. 2011; 36(3): 273-83) Nutrition to continue to follow up while inpatient Thank you, Shannon Henson RD Pager #: [phone] * Francis Linton MD - 01/15/2022 7:24 AM EDT Images from the original note were not included. Inpatient Hospital Medicine Progress Note Patient ID: Name: Aziza Fields : 1960 PCP: Madhavi Smith APRN PCP phone number: [phone] Date of Admission: 01/06/2022 ( Hospital Day 9 days ) Service: Medicine, Blue Team Responsible Attending:Francisco Lynne, DO ID: Aziza Fields??is a??61 y.o.??female with PMH of MDD, OFELIA, migraines who was admitted tot MICU for overdose in attempted suicide req intubation for airway protection, now HDS transferred to . ?? 24 H/Subjective: - NAEON > Patient c/o of nausea (no vomiting), abdominal pain, with diarrhea (1X). Patient endorsed thatnausea was better and only having suprapubic fullness with mild TTP of suprapubic area - Assessed by psych yesterday, now carrying out full conversations - CANAL BOAT OPERATOR advanced diet - Reports urethral discomfort 2/2 yuan - This AM patient's mental status is noted to be continuously improved, able to speak in full sentences, denies LUX, CP, Abdominal pain, reports mild nausea Vitals: Last value Range last 24 hrs Temperature Temp: 37.7 ??C (99.86 ??F) Temp: [37.1 ??C (98.78 ??F)-37.7 ??C (99.86 ??F)] Heart Rate Heart Rate: 81 Heart Rate: [72-83] Blood Pressure BP: 111/78 BP: (107-126)/(64-80) Respiratory Rate Resp: 17 Resp: [17-31] SpO2 SpO2: 95 % SpO2: [91 %-96 %] Ins/Outs: Intake/Output Summary (Last 24 hours) at 01/15/2022 1028 Last data filed at 01/15/2022 0800 Gross per 24 hour Intake 559 ml Output 1880 ml Net -1321 ml Patient Vitals for the past 168 hrs: Weight 01/14/22 0000 45.6 kg (100 lb 8.5 oz) 01/13/22 0600 48 kg (105 lb 13.1 oz) 01/12/22 0600 48.6 kg (107 lb 2.3 oz) 01/10/22 0000 49.5 kg (109 lb 2 oz) Admit wt: 46.8 kg Physical Exam Gen: in bed in NAD. C-collar in place HEENT: sclera anicteric, conjunctiva nl ?? CV: RRR, no murmurs/rubs/gallops Resp: ??CTAB, no crackles/wheezes/ronchi, normal work of breathing Abd: normal bowel sounds, soft, non-tender to palpation, no guarding Ext: 2+ distal pulses, no pedal edema Neuro: Rigidity improving. Clonus observed in BL patellar reflex (though improved from prior). Answering questions appropriately, speaks in full sentences now Skin: b/l wrist lacerations s/p sutures. . Labs: Recent Labs 01/15/22 0530 01/14/22 0340 01/13/22 0546 01/12/22 0100 01/11/22 0110 WBC 9.4 9.0 7.7 8.5 11.1* HGB 11.4* 11.0* 10.4* 9.4* 10.3* PLATELET 376* 291 261 192 174 Recent Labs 01/15/22 0530 01/14/22 0340 01/13/22 0546 NA 139 134* 136 K 4.0 4.1 4.1 CL 103 101 104 CO2 24 24 24 BUN 15 13 15 CREATININE 0.36* 0.35* 0.39* GLUCOSE 100 151 140 CALCIUM 9.1 9.0 8.9 MAGNESIUM 0.79 0.76 0.76 PHOS 3.3 3.8 2.3* No results for input(s): PROT, ALBUMIN, BILITOT, BILIDIR, AST, ALT, ALKPHOS in the last 168 hours. No results for input(s): INR, PT, PTT in the last 72 hours. Recent Labs 01/12/22 1350 01/11/22 0110 01/10/22 0322 01/09/22 0158 CK -- 536* 1,074* 1,682* TROPONINT <0.01 -- -- -- Microbiology: Microbiology Results (Last 30 days) Procedure Component Value Units Date/Time COVID-19 PCR [[id number]] Collected: 01/09/222054 Lab Status: Final result Specimen: Nasopharyngeal Swab Updated: 01/10/22 1442 SARS-CoV-2 RNA Not Detected Comment: This result should be interpreted in combination with the clinical observations, patient history and epidemiological information in making a final diagnosis. For testing of asymptomatic individuals, assay performance characteristics and clinical utility have not been evaluated. Testing for SARS-CoV-2 (Severe acute respiratory syndrome coronavirus 2, formerly known as 2019 novel coronavirus or 2019-nCoV) to aid in the diagnosis of COVID-19 is performed using the [employer] m SARS-CoV-2 Assay as authorized by the FDA Emergency Use Authorization (EUA). This EUA assay is intended for In-vitro Diagnostic (IVD) use with respiratory specimens such as nasopharyngeal swabs collected from individuals during the acute phase of infection. This assay is performed based on the instructions for use provided by [employer] and additional guidance provided by CDC and FDA. Testing is performed in the [facility] [employer] [facility] [employer] [facility] within the Department of Pathology and Laboratory Medicine at [facility], certified under the Clinical Laboratory Improvement Amendments of 1988 (CLIA), 42 U.S.C. 263a, to perform high complexity tests. Assay performance has been verified according to clinical laboratory regulatory requirements for use with specimens collected from individuals suspected of COVID-19. Test results are provided above. A result of Not Detected indicates that the viral RNA target is not present above the limit of detection, but does not preclude SARS-CoV-2 infection. False negative results may occur if a specimen is improperly collected, transported or handled; if amplification inhibitors are present; or if inadequate numbers of viral particles are present in the specimen. When a diagnostic test is negative, the possibility of a false negative result should be considered in the context of a patient's recent exposures and the presence of clinical signs and symptoms consistent with COVID-19. A result of Detected indicates that RNA from SARS-CoV-2 was detected and the patient is infected. As required or requested by public health authorities, positive specimens may be sent for additional testing. Positive and negative predictive values for this test are highly dependent on disease prevalence. A result of Invalid indicates that neither the viral RNA targets nor the internal control target was detected. An invalid result suggests the presence of inhibitors. Recollection and re-testing is recommended in the case of an invalid result. CDC COVID-19 criteria for testing on human specimens and clinical management guidance information are available at the CDC Coronavirus Disease 2019 (COVID-19) webpage under Information for Healthcare Professionals (https://www.cdc.gov/coronavirus/2019-ncov/hcp/index.html) Additional information about this and other EUA tests can be found in provider and patient fact sheets at the following FDA website: https://www.fda.gov/medical-devices/bmndmzzuyhp-soseein-1760-cdzpl-99-nupkvvygf- nnw-ilpvhtidzqjnaw-kqhgzel-devices/ylfmp-qxwrmlweuwh-cfdk SARS-Cov-2 RNA Source MUSIC LIBRARY ASSISTANT Swab Blood culture [[id number]] Collected: 01/07/22 0019 Lab Status: Final result Specimen: Blood Updated: 01/12/22 0701 Blood Culture No growth at 5 days. COVID-19 PCR [[id number]] Collected: 01/06/22 5688 Lab Status: Final result Specimen: Nasopharyngeal Swab Updated: 01/07/22 0324 SARS-CoV-2 RNA PCR Not Detected Comment: This result should be interpreted in combination with the clinical observations, patient history and epidemiological information. For testing of asymptomatic individuals, assay performance characteristics and clinical utility have not been evaluated. Testing for SARS-CoV-2 (Severe acute respiratory syndrome coronavirus 2, formerly known as 2019 novel coronavirus or 2019-nCoV) to aid in the diagnosis of COVID-19 is performed using the [employer] COVID-19 Direct Assay by [employer] as authorized by the FDA issued Emergency Use Authorization (EUA). This assay is intended for In-vitro Diagnostic (IVD) use with nasopharyngeal swabs collected from individuals meeting the CDC criteria for testing. The assay is performed based on the instructions for use and additional guidance provided by the FDA. Testing is performed in the Microbiology Laboratory within the Department of Pathology and Laboratory Medicine at [facility], certified under the Clinical Laboratory Improvement Amendments of 1988 (CLIA), 42 U.S.C. section 263a, to perform high complexity tests. Assay performance has been verified according to clinical laboratory regulatory requirements. Test results are provided above. A result of Not Detected indicates that the viral RNA target is not present but does not preclude SARS-CoV-2 infection. False negative results may occur if a specimen is improperly collected, transported or handled; if amplification inhibitors are present; or if inadequate numbers of viral particles are present in the specimen. A result of Detected suggests a current or recent infection and the patient is presumed to be infected. Positive and negative predictive values for this test are highly dependent on disease prevalence. A result of Invalid indicates the inability to conclusively determine the presence or absence of SARS-CoV-2 RNA in the sample which can be due to a variety of factors. Recollection is recommended in the case of an invalid result. CDC COVID-19 criteria for testing on human specimens and clinical management guidance information are available at the CDC Coronavirus Disease 2019 (COVID-19) webpage under Information for Healthcare Professionals (https://www.cdc.gov/coronavirus/2019-ncov/hcp/index.html). Additional information about this and other EUA tests can be found in provider and patient fact sheets at the following FDA website: https://www.fda.gov/medical-devices/abndmiyxkgy-eswlybc-1108-gogsd-66-shkivdvrw- mmi-qfdokpebplthsk-npxjzxh-devices/kohdn-iejnqhqudmh-qgjs SARS-CoV-2 Source MUSIC LIBRARY ASSISTANT Swab Imaging: Results for orders placed or performed during the hospital encounter of 01/06/22 XR Chest One View (Exam End: 01/07/2022 1:35 AM) Impression * Endotracheal tube 10 cm above the emmanuel. Please advance. * Enteric tube courses below the diaphragm and beyond the [id number]. * Minimal central pulmonary vascular congestion. Thank you for letting us participate in the care of this patient. If you are a health care provider and have any questions regarding this report, please contact the number below. For patients who have questions please contact the health plant health care technician that requested your imaging first. Electronically signed by: Bob Escalante MD, [facility] ([phone]), at 01/07/2022 2:06 AM XR Abdomen 1 view (Generic) (Exam End: 01/07/2022 1:35 AM) Impression Enteric tube terminates in the gastric antrum. Thank you for letting us participate in the care of this patient. If you are a health care provider and have any questions regarding this report, please contact the number below. For patients who have questions please contact the health plant health care technician that requested your imaging first. Electronically signed by: Bob Escalante MD, [facility] ([phone]), at 01/07/2022 2:07 AM XR Pelvis (Generic) (Exam End: 01/07/2022 7:10 AM) Impression No acute fracture or dislocation. Thank you for letting us participate in the care of this patient. If you are a health care provider and have any questions regarding this report, please contact the number below. For patients who have questions please contact the health plant health care technician that requested your imaging first. Electronically signed by: Bob Escalante MD, [facility] ([phone]), at 01/07/2022 8:[address] Head wo Contrast (Generic) (Exam End: 01/07/2022 5:07 AM) Impression No acute intracranial pathology. Preliminary report signed by: Andrea Machuca at 01/07/2022 5:16 AM I have personally reviewed the image(s) and the resident's interpretation and agree with the findings, Bob Escalante MD at 01/07/2022 5:23 AM Thank you for letting us participate in the care of this patient. If you are a health care provider and have any questions regarding this report, please contact the number below. For patients who have questions please contact the health plant health care technician that requested your imaging first. Electronically signed by: Bob Escalante MD, [facility] ([phone]), at 01/07/2022 5:[address] Cervical Spine wo Contrast (Exam End: 01/07/2022 5:07 AM) Impression * No acute fracture or dislocation. * Minimal C3-C4, C4-C5 and C5-C6 retrolistheses. * Multilevel degenerative changes as detailed above. Preliminary report signed by: Andrea Machuca at 01/07/2022 5:23 AM I have personally reviewed the image(s) and the resident's interpretation and agree with the findings, Bob Escalante MD at 01/07/2022 5:28 AM Thank you for letting us participate in the care of this patient. If you are a health care provider and have any questions regarding this report, please contact the number below. For patients who have questions please contact the health plant health care technician that requested your imaging first. Electronically signed by: Bob Escalante MD, [facility] ([phone]), at 01/07/2022 5:28 AM MRI Brain wo Contrast (Exam End: 01/07/2022 4:18 PM) Impression No evidence for acute process. Thank you for letting us participate in the care of this patient. If you are a health care provider and have any questions regarding this report, please contact the number below. For patients who have questions please contact the health plant health care technician that requested your imaging first. Chest One View (Exam End: 01/08/2022 6:53 AM) Impression New bibasilar patchy airspace opacities with total opacification of right middle lobe acute represent aspiration pneumonitis. Thank you for letting us participate in the care of this patient. If you are a health care provider and have any questions regarding this report, please contact the number below. For patients who have questions please contact the health plant health care technician that requested your imaging first. Electronically signed by: Bob Escalante MD, [facility] ([phone]), at 01/08/2022 6:57 AM XR Chest One View (Exam End: 01/09/2022 9:24 PM) Impression Increased confluence of multifocal predominantly lower lobe bilateral pulmonary opacities, compatible with aspiration pneumonitis, with trace right and small left pleural effusions. I have personally reviewed the image(s) and the resident's interpretation and agree with the findings, Lorin Ruelas MD at 01/09/2022 11:00 PM Thank you for letting us participate in the care of this patient. If you are a health care provider and have any questions regarding this report, please contact the number below. For patients who have questions please contact the health plant health care technician that requested your imaging first. Electronically signed by: Lorin Ruelas MD, [facility] ([phone]), at 01/09/2022 11:00 PM MRI Brain wo Contrast (Exam End: 01/11/2022 11:54 AM) Impression Stable MRI without acute findings. Thank you for letting us participate in the care of this patient. If you are a health care provider and have any questions regarding this report, please contact the number below. For patients who have questions please contact the health plant health care technician that requested your imaging first. Electronically signed by: Renetta Sims MD, [facility] ([phone]), at 01/11/2022 12:05 PM XR Abdomen 1 view (Generic) (Exam End: 01/11/2022 2:16 PM) Impression 1. Interval placement of weighted tip enteric catheter with distal tip projecting over the body the stomach. 2. Redemonstration of multifocal opacities in the bilateral lungs suggestive of aspiration pneumonitis. I have personally reviewed the image(s) and the resident's interpretation and agree with the findings, Anjali Hill MD at 01/11/2022 2:43 PM Thank you for letting us participate in the care of this patient. If you are a health care provider and have any questions regarding this report, please contact the number below. For patients who have questions please contact the health plant health care technician that requested your imaging first. Chest One View (Exam End: 01/11/2022 3:41 PM) Impression 1. Worsening bilateral mid to lower lung zones opacities which could represent any combination of aspiration or infection and bilateral layering pleural effusions. 2. There is likely a component of pulmonary edema as well. Thank you for letting us participate in the care of this patient. If you are a health care provider and have any questions regarding this report, please contact the number below. For patients who have questions please contact the health plant health care technician that requested your imaging first. Electronically signed by: Vianey Morrison MD, [facility] ([phone]), at 01/11/2022 3:46 PM XR Chest One View (Exam End: 01/12/2022 2:35 PM) Impression 1. No interval change. 2. Stable bibasilar and perihilar airspace opacities. Thank you for letting us participate in the care of this patient. If you are a health care provider and have any questions regarding this report, please contact the number below. For patients who have questions please contact the health plant health care technician that requested your imaging first. Electronically signed by: Alon Peterson DO, [facility] ([phone]), at 01/12/2022 3:00 PM XR Abdomen 1 view (Generic) (Exam End: 01/12/2022 11:54 PM) Impression 1. Dobbhoff tube terminates within the stomach. 2. No other interval change. Thank you for letting us participate in the care of this patient. If you are a health care provider and have any questions regarding this report, please contact the number below. For patients who have questions please contact the health plant health care technician that requested your imaging first. Electronically signed by: Lorin Ruelas MD, [facility] ([phone]), at 01/13/2022 12:06 AM Inpatient Medications: Scheduled Meds: ??? melatonin 3 mg Oral Nightly ??? mirtazapine 30 mg Oral Nightly ??? lidocaine 3 patch Transdermal Q24H And ??? lidocaine 3 patch Transdermal Q24H ??? polyethylene glycoL (MIRALAX) oral powder 17 g Per NG tube Daily ??? sodium chloride 4 mL Nebulization Q6H While awake ??? enoxaparin 30 mg Subcutaneous Nightly Continuous Infusions: ??? tube feeding diet Stopped (01/14/22 1900) PRN Meds:.LORazepam, ondansetron ODT, acetylcysteine, bisacodyL, acetaminophen, potassium chloride in water OR potassium chloride in water OR potassium chloride in water, ipratropium-albuteroL Assessment/Plan: Aziza Fields??is a??61 y.o.??female with PMH of MDD, OFELIA, migraines who was [facility] to [facility] for overdose in attempted suicide req intubation for airway protection, now HDS transferred to. ?? Patient remains encephalopathic and does not answer questions or follow commands. She has reportedly had agitation responsive to benzodiazepenes. Given clonus and tetany as well as hallucinations andagitation with overdose on seretonergic drugs, the leading theory is seretonin syndrome despite lack of tachycardia, HTN, hyperthermia, diaphoresis.??She has been given prn benzos so far. However, also note that w/ an uptrending CK, NMS should be on the ddx as well brent given her rigidity. Tx would be the same as supportive and w/ benzos. Initial Normal MRI and EEG without any epileptiform activity but did note moderate global cerebral dysfunction ?? Respiratory status is markedly improved - RML collapse previously likely due to mucus plugging / aspiration due to poor mental status. Responding to aggressive pulmonary hygiene and is now on NC. Brief episode requiring 100% high flow nasal cannula which resolved with aggressive pulmonary hygiene consistent with mucous plugging. We will continue to closely monitor her respiratory status with low t hreshold to escalate to the ICU. Finished unasyn for 5d total course for asp PNA. Patient was intermittently diuresed with IV Lasix (patient response to 20 mg doses) with marked improvement noted, now on room air. Will as such transition to 40mg PO and obtain TTE to ensure she will not need maintenance diuresis. ?? Patient will continue to need 1:1 sitting and psychiatric management due to suicide attempt. Note that the pt's code status was recorded as DNR/DNI and upon conversation w/ her /DPOA, he notesthat this was based on an AD that the pt filled out approximately 1 mo ago. He notes that they had prior discussions re this but that it's unclear if she was in a depressive state of mind at the timeof this AD. Psychiatry engaged who recommended maintaining patient full code as it is uncertain whether or not her DNR status was affected by her suicidality. Psych to reassess once her mentation improves to further clarify this. Question regarding DPOA status as cited by social work, please see their note for detailed assessment of the situation. Repeat brain MRI unremarkable. Mentation is markedly improved compared to admission the hospitalistservice, patient now speaking in full sentences. Fever now much improved following initiation of Tylenol as needed. DHT placed 01/11 for improved nutrition. Given her improved physical/functional status, involving CANAL BOAT OPERATOR for swallow assessment. Trauma surgery to be contacted for removal of c- collar 01/14, will likely remove 01/15 pending repeat radiographs. Removing Yuan 01/15 for voiding trial. ?? Plan: #AMS 2/2 toxic ingestion predominantly sedating medications and ?serotonin syndrome vs NMS - improving - Ativan 0.5mg q6h prn agitation/nausea - APAP 650 q6h prn for pain/fever - MRI brain 01/07 negative - MRI cesar 01/11 unremarkable ?? #MDD, OFELIA, h/o multiple suicide attempts - 1:1 sitter -??holding??home meds:??on ativan, atarax, vilazodone, zolpidem, buspirone, lamictal - psych consult > Likely voluntary admission following MR > Psych Rx per psych: Re-started remeron ?? #Right middle lobe collapse likely mucus plugging #Possible aspiration pneumonia #Pulmonary edema - uncertain etiology - Unasyn 3g 01/08-01/12 - Position on left side when possible, elevate head of bed - intermittent lasix IV 01/11 - p > Responds to 20IV > 40PO 01/15 - TTE 01/15 pending ?? #Bilateral wrist lacerations: s/p sutures - Surgery repaired - on unasyn as above - tetanus 01/07/22 - No active bleeding, continue to monitor ?? #Cspine precautions - Precautions per trauma surgery - C-spine radiographs 01/15 ?? #macrocytic anemia - Continue to monitor - no signs of active bleeding ?? #Other - DVT ppx: lovenox - GI ppx: H2B - Diet: Advancing with CANAL BOAT OPERATOR, DHT w/ tube feeds - Dispo: pending clinical course Francis Linton MD PGY-1, Internal Medicine Green Team (Pager [phone]) 01/15/22 Associated attestation - Francisco Lynne DO - 01/15/2022 1:37 PM EDT Attending Attestation Please see Dr. Linton's note for details of the patient history of presentation and data. I have discussed, reviewed and agree with the documented History, Physical findings, Assessment and Plan of care. I have examined the patient myself and personally reviewed all studies. In addition, I certify thatI am a [facility] credentialed attending provider with admitting privileges and that the patient meets or has met medical necessity to require an inpatient IPI level of care meeting a minimum of two midnights or is on the [facility] inpatient only procedure list (status C) due to: monitoring of fluid status given an inability to regulate fluid balance and the need for administration or restriction of fluids, acute respiratory compromise and/or hypoxia requiring assessment every 4 hours and the ability to respond immediately to the patient's need and severe encephalopathy 59 yo F w/ PMH of severe MDD (multiple prior suicide attempts, prior ECT) presented to ED on 01/06 after polysubstance OD w/ self-inflicted b/l wrist lacerations initially admitted to ICU given need for intubation for airway protection but now medically stable for transfer to on HD2. Poison control was called given presentation and in setting of hyperreflexia, hyperpyrexia, rigidity, prolonged encephalopathy with episodes of agitation symptomatic control with Ativan for suspected serotonin syndrome was recommended. S/p unremarkable Brain MRI, spot EEG. Surgical closure of b/l wrist lacerations w/o complication, 5 day course of antibiotics completed as ppx 01/12. Now with continued intervalimprovement. Exam today w/o rigidity, normal reflexes and continued improvement in encephalopathy (actively engaged in verbal conversation). Responding to aggressive pulmonary toilet and now on RA. Ongoing clearance of CSpine precautions given mid c spine point tenderness requiring F/E XRay r/o. CANAL BOAT OPERATOR for diet advancement also appreciated and can d/c feeding tube. Will trial po lasix but may be euvolemic given no h/o HF. Possible stress CM requiring all this diuresis up until now so will f/u TTE as that wouldguide Rx optimization. Appreciate psychiatry engagement about safe Rx reintroduction. Francisco Lynne DO Hospital Medicine 01/15/2022 1:35 PM * Cora Kim - 01/15/2022 6:41 AM EDT Images from the original note were not included. Inpatient Medicine Progress Note Patient info: Name: Aziza Fields : 1960 PCP: Madhavi Smith APRN PCP phone number: [phone] Date of Admission: 01/06/2022 ( Hospital Day 9 days ) Responsible Attending:Francisco Lynne DO ID: Aziza Fields is a 61 y.o. female with a PMH significant for major depressive disorder, generalized anxiety disorder, and migraines who was admitted to the ICU for suicide attempt and serotonin syndrome. 24 Hour Events/subjective: -Trauma called to remove C-spine precautions, ordered xray for bony tenderness. -Cleared by speech for thin liquids yesterday. -Psych assessment recommended benefit from psych admission and ECT with medically d/c. -20mg IV Lasix given yesterday This morning: Speaking in phrases, carried out a full conversation. Says she's not in any pain. She's not currently nauseous but was yesterday and vomited twice. She asked about the yuan and the collar as they are bothering her. She is drinking clear liquids this morning. She is feeling diffusely weak but no dizziness, no headache, no SOB, no abdominal pain. This morning, she had a yellow clear stool. Yesterday had formed normal BM per nursing report. Physical Exam: Last value Range last 24 hrs Temperature Temp: 37.7 ??C (99.86 ??F) Temp: [37.1 ??C (98.78 ??F)-37.7 ??C (99.86 ??F)] Heart Rate Heart Rate: 75 Heart Rate: [72-83] Blood Pressure BP: 114/65 BP: (104-137)/(64-82) Respiratory Rate Resp: 22 Resp: [18-31] SpO2 RA SpO2: 95 % SpO2: [91 %-97 %] Intake/Output Summary (Last 24 hours) at 01/15/2022 0641 Last data filed at 01/15/2022 0400 Gross per 24 hour Intake 665 ml Output 1995 ml Net -1330 ml Patient Vitals for the past 168 hrs: Weight 01/14/22 0000 45.6 kg (100 lb 8.5 oz) 01/13/22 0600 48 kg (105 lb 13.1 oz) 01/12/22 0600 48.6 kg (107 lb 2.3 oz) 01/10/22 0000 49.5 kg (109 lb 2 oz) Admit wt: 46.8 kg -Last BM: Last Bowel Movement: 01/14/22 General: No acute distress, collar in place. Neck: Supple and with no JVD appreciated. HEENT: Pupils equal and reactive to light, extraocular movements intact, no icterus, mucus membranes moist, no legions or sores in the mouth. Cardiovascular: Regular rate and rhythm, normal S1, S2. No murmurs, rubs, or gallops. Pulmonary: Diminished breath sounds (anteriorly), equal bilaterally. Abdomen: Soft, mild tender in the central epigastric area, non distended. No splenomegaly, no hepatomegaly. Extremities: no edema, pedal pulses palpated bilaterally. Skin: Warm, dry, no rashes or lesions. No jaundice, no ecchymosis, no petechiae. Lymphatics: no lymphadenopathy. Neuro: AOx3. Scheduled Medications: ??? melatonin 3 mg Oral Nightly ??? mirtazapine 30 mg Oral Nightly ??? lidocaine 3 patch Transdermal Q24H And ??? lidocaine 3 patch Transdermal Q24H ??? polyethylene glycoL (MIRALAX) oral powder 17 g Per NG tube Daily ??? sodium chloride 4 mL Nebulization Q6H While awake ??? enoxaparin 30 mg Subcutaneous Nightly PRN Medications: LORazepam, ondansetron ODT, acetylcysteine, bisacodyL, acetaminophen, potassium chloride in water OR potassium chloride in water OR potassium chloride in water, ipratropium-albuteroL Laboratory: Recent Labs 01/15/22 0530 01/14/22 0340 01/13/22 0546 WBC 9.4 9.0 7.7 HGB 11.4* 11.0* 10.4* PLATELET 376* 291 261 Recent Labs 01/15/22 0530 01/14/22 0340 01/13/22 0546 NA 139 134* 136 K 4.0 4.1 4.1 CL 103 101 104 CO2 24 24 24 BUN 15 13 15 CREATININE 0.36* 0.35* 0.39* GLUCOSE 100 151 140 Recent Labs 01/15/22 0530 01/14/22 0340 01/13/22 0546 CALCIUM 9.1 9.0 8.9 MAGNESIUM 0.79 0.76 0.76 PHOS 3.3 3.8 2.3* Imaging/Studies: Chest Xray 01-11: 1. Worsening bilateral mid to lower lung zones opacities which could represent any combination of aspiration or infection and bilateral layering pleural effusions. 2. There is likely a component of pulmonary edema as well. Brain MRI 01/11: 1. Stable MRI without acute findings. Chest Xray: Increased confluence of multifocal predominantly lower lobe bilateral pulmonary opacities, compatible with aspiration pneumonitis, with trace right and small left pleural effusions -Normal MRI -EEG without epileptiform activity. Assessment and Plan: Aziza Fields is a 61 y.o. female with a PMH significant for major depressive disorder, generalized anxiety disorder, and migraines who was admitted to the ICU for suicideattempt and serotonin syndrome. AMS appears to be improving with patient fully conversing with MRI 01/11 was unremarkable. Tube feeds started 01/11, with dobhoff repositioned 01/13. RR remains elevated and Xray 01/11 showed worsening of opacities. Lasix was given with good effect (O2 requirement went down to RA today).Cleared by speech for thin liquids 01/14. Trauma following for removal of C-spine precautions with pending the imaging. Psych assessment recommended benefit from psych admission and ECT with medically d/c, they are following and BIT is offering support. #Aspiration Pneumonia: Patient required 60% high flow 01/09. 01/11 now down to 40% high flow, 50L/minand O2 sat at 96%. Also right lobe collapse due to mucous plugging. Patient improved when turned toleft side. WBC count is down which is reassuring for infection response. Xray showing worsening of bilateral lower lung opacities however imaging takes longer to resolve and clinically she appears sendy doing better with her O2 requirement. O2 requirement continues to go down after treatment with lasix, this morning at 95 sat on RA. BUN and Cr continue to be normal. Plan to transition to PO lasix01/15 and use echo to evaluate cardiac function to help determine etiology of pulmonary edema and ass ess need for further lasix treatment. -Continue 40mg PO lasix -Cardiac Echo today -Monitor BUN and Cr closely. #Deconditioning: Patient remains diffusely weak given her lack of ambulation and long hospital course. If planning to d/c to psych, patient needs to ambulate independently so plan to involve PT/OT tostart working with her. -Consult PT/OT for eval. -Voiding trial and remove yuan today. #Major depressive disorder: patient has a history of MDD and OFELIA with mutiple suicide attempts. Code status is unclear as AD was signed last month in the potential context of depression, so psych consulted and she is now full code. -1:1 sitter -Per psych note: consider started in mirtazapine -Holding home meds: atarax, vilazodone, zolpidem, buspirone, lamictal -Psych following for shared counseling regarding ECT. -BIT team following. #C-Spine Precautions: Seen by trauma and put in collar for inial evaluation. 01/13 assessment to remove collar found that patient had bony point tenderness. Trauma following and ordered cervical xray in order to evaluate removal of c- spine precautions. -Xray ordered for assessment of bony point tenderness -Plan to f/u with removal or MRI as needed. #Diarrhea: 01/15: Patient had new onset of one clear yellow liquid stool this morning. Has had some intermittent nausea and vomiting which has been well managed with ativan and Zofran. The BM are not large in volume and at this time there is no concern for infectious etiology. -Continue to monitor. #Altered mental status: Resolved. Was most likely secondary to toxic ingestion of sedating medications. Elevated CK on 01/09 concerning for serotonin syndrome or NMS. 01/11- CK 536 from 1,074 01/11- stop trending. MRI was unremarkable. According to poison control lamotrigine is long acting and she hadthe rx for many sedating drugs. Benzos remain the best option. Markedly improved 01/14. AOx3, carrying an full conversation appropriately. #Bilateral wrist lacerations: s/p sutures - Surgery repaired - on unasyn as above - tetanus 01/07/22 - No active bleeding, continue to monitor. #Other - DVT ppx: lovenox - GI ppx: H2B - Diet: NPO (pending improvement in mentation) - Dispo: pending clinical course - DPOA: Tunde IrvinLeslye Kim M3 Medical Student * Alexia Sanchez, PHILLIP - 01/14/2022 3:32 PM EDT Speech Therapy Bedside Swallow Evaluation Patient Profile: Aziza Fields is a 61 y.o. female admitted on 01/06/2022 with PMH of MDD, OFELIA, migraines who??was admitted to the MICU for??overdose in attempted suicide requiring intubation for airway protection. Now extubated with improved mental status. CANAL BOAT OPERATOR consulted for a bedside swallowevaluation. Prior Level of Swallow Function: Patient denies a history of dysphagia. Typically consumes a regular diet with regular liquids. Subjective: Patient contacted, alert. Objective: Pt seen for evaluation today. Pain: Pt did not demonstrate overt s/s of discomfort. Respiratory Status: Nasal canula 1 L/min Vision: WFL per pt Hearing: WFL Current Diet: Dysphagia Soft Diet Feeding Status: Pt requires cues and / or assistance due to weakness and difficulty navigating c-collar Dependent for Oral Care? No Cognitive-Linguistic Status: alert, oriented to time, person, place and situation Follows Commands: Follows multi-step commands Positioning: HOB at 80 degrees Oral / Laryngeal Mechanism Clinical Assessment: ?? Lingual: Tongue protrudes midline with functional ROM on all planes. ?? Labial / Buccal: Equal protrusion/retraction bilaterally. ?? Velar: Uvula is midline, velar elevation is present. ?? Sensation: Appears grossly intact. ?? Vocal fold function and airway protection: Strong volitional cough. Voice is soft. ?? Speech Intelligibility: WFL ?? Mucosa: WFL ?? Dentition: present and adequate Bolus Presentation(s) ?? Thin liquid via straw ?? Puree ?? Dysphagia soft Oral Preparatory Phase ?? Mastication: Prolonged, disorganized, impacted by cervical collar ?? Oral Transit: Appears delayed ?? Bolus Cohesion: Appears mildly decreased ?? Labial Seal / Loss: Adequate seal, negative loss ?? Oral Stasis: Negative Pharyngeal Phase ?? Laryngeal Elevation: Present ?? Vocal quality change: Negative ?? Cough / throat clear: Negative cough, intermittent throat clearing (pt reports baseline d/t postnasal drip) ?? Pt. complaint of food getting stuck: Negative ?? Fatigue across trials: No ?? Respiratory rate and respiratory swallow pattern: WFL Esophageal Phase ?? Appears to be WFL, No overt clinical s/s of esophageal phase dysphagia noted during this evaluation. Compensatory Techniques: Pt was able to return demonstrate effective use of strategies. Education: Patient educated on results and recommendations, and verbalized understanding. Patient status, treatment and swallow recommendations were discussed with nursing. Assessment: Patient presents today for a bedside swallow evaluation. Cervical collar was in place at the time of this visit. PO trials performed with thin liquids, puree, and dysphagia soft solids. Patient exhibited overt s/s of mild oral dysphagia characterized by prolonged, disorganized mastication of material with solids, which appeared to be related to cervical collar, and mildly decreased bolus cohesion/control. No overt s/s of aspiration or pharyngeal dysphagia. Patient appears appropriate for a dysphagia soft diet with thin liquids as a least restrictive diet with aspiration precautions/safe swallow guidelines in place. CANAL BOAT OPERATOR will continue to follow and make additional recommendations as indicated. Diagnosis: mild oral dysphagia Recommendations: Diet: Dysphagia soft, Thin liquids PO medications: whole with sip of liquid Aspiration precautions: One to one direct supervision during all PO intake to ensure feeding strategies are followed Feed only when alert Upright position during meals and for at least 30 mins following Small sips and bites while eating Slow rate; swallow between bites Excellent oral care Pt will benefit from continued CANAL BOAT OPERATOR services while hospitalized Speech Therapy Goals: (To be met by discharge) Pt will tolerate least restrictive diet without evidence of dysphagia / aspiration. Pt / caregiver will be independent with aspiration precautions, diet modifications, and safe swallowing strategies. Plan: Therapy Frequency (CANAL BOAT OPERATOR Eval): 2-3 times/wk Pt./family are in agreement with treatment plan. Total Minutes (Speech Language Pathology): 25 Thank you for this consult with this patient. Please feel free to page me with any questions or concerns. Alexia Sanchez, MS, CCC-CANAL BOAT OPERATOR Speech-Language Pathologist Rehabilitation Medicine Pager # [phone] * Francis Linton MD - 01/14/2022 7:27 AM EDT Images from the original note were not included. Inpatient Hospital Medicine Progress Note Patient ID: Name: Aziza Fields : 1960 PCP: Madhavi Smith APRN PCP phone number: [phone] Date of Admission: 01/06/2022 ( Hospital Day 8 days ) Service: Medicine, Blue Team Responsible Attending:Francisco Lynne, DO ID: Aziza Fields??is a??61 y.o.??female with PMH of MDD, OFELIA, migraines who was admitted tot MICU for overdose in attempted suicide req intubation for airway protection, now HDS transferred to . ?? 24 H/Subjective: - NAEON - This AM patient's mental status is noted to be continuously improved, able to speak in full sentences, denies LUX, CP, Abdominal pain, reports mild SOB and mild nausea Vitals: Last value Range last 24 hrs Temperature Temp: 37.2 ??C (98.96 ??F) Temp: [36.6 ??C (97.9 ??F)-37.7 ??C (99.86 ??F)] Heart Rate Heart Rate: 73 Heart Rate: [71-83] Blood Pressure BP: 124/61 BP: (113-130)/(61-86) Respiratory Rate Resp: 22 Resp: [18-32] SpO2 SpO2: 97 % SpO2: [94 %-98 %] Ins/Outs: Intake/Output Summary (Last 24 hours) at 01/14/2022 0727 Last data filed at 01/14/2022 0600 Gross per 24 hour Intake 1320 ml Output 2810 ml Net -1490 ml Patient Vitals for the past 168 hrs: Weight 01/14/22 0000 45.6 kg (100 lb 8.5 oz) 01/13/22 0600 48 kg (105 lb 13.1 oz) 01/12/22 0600 48.6 kg (107 lb 2.3 oz) 01/10/22 0000 49.5 kg (109 lb 2 oz) 01/08/22 0600 49 kg (108 lb 0.4 oz) Admit wt: 46.8 kg Physical Exam Gen: in bed in NAD. C-collar in place HEENT: sclera anicteric, conjunctiva nl ?? CV: RRR, no murmurs/rubs/gallops Resp: ??CTAB, no crackles/wheezes/ronchi, normal work of breathing Abd: normal bowel sounds, soft, non-tender to palpation, no guarding Ext: 2+ distal pulses, no pedal edema Neuro: Rigidity improving. Clonus observed in BL patellar reflex (though improved from prior). Answering questions appropriately, speaks in small sentences now Skin: b/l wrist lacerations s/p sutures. . Labs: Recent Labs 01/14/22 0340 01/13/22 0546 01/12/22 0100 01/11/22 0110 01/10/22 0322 WBC 9.0 7.7 8.5 11.1* 8.7 HGB 11.0* 10.4* 9.4* 10.3* 10.0* PLATELET 291 261 192 174 116* Recent Labs 01/14/22 0340 01/13/22 0546 01/12/22 1755 01/12/22 1104 01/12/22 0100 01/08/22 0142 01/07/22 1410 NA 134* 136 -- -- 140 < > 138 K 4.1 4.1 3.6 < > 2.9* < > 4.3 CL 101 104 -- -- 106 < > 105 CO2 24 24 -- -- 21* < > 20* BUN 13 15 -- -- 17 < > 13 CREATININE 0.35* 0.39* -- -- 0.48* < > 0.74 GLUCOSE 151 140 -- -- 87 < > 125 CALCIUM 9.0 8.9 -- -- 8.6 < > 8.6 MAGNESIUM 0.76 0.76 -- -- 0.79 < > 0.91 PHOS -- 2.3* -- -- -- -- 3.7 < > = values in this interval not displayed. No results for input(s): PROT, ALBUMIN, BILITOT, BILIDIR, AST, ALT, ALKPHOS in the last 168 hours. No results for input(s): INR, PT, PTT in the last 72 hours. Recent Labs 01/12/22 1350 01/11/22 0110 01/10/22 0322 01/09/22 0158 CK -- 536* 1,074* 1,682* TROPONINT <0.01 -- -- -- Microbiology: Microbiology Results (Last 30 days) Procedure Component Value Units Date/Time COVID-19 PCR [[id number]] Collected: 01/09/222054 Lab Status: Final result Specimen: Nasopharyngeal Swab Updated: 01/10/22 1442 SARS-CoV-2 RNA Not Detected Comment: This result should be interpreted in combination with the clinical observations, patient history and epidemiological information in making a final diagnosis. For testing of asymptomatic individuals, assay performance characteristics and clinical utility have not been evaluated. Testing for SARS-CoV-2 (Severe acute respiratory syndrome coronavirus 2, formerly known as 2019 novel coronavirus or 2019-nCoV) to aid in the diagnosis of COVID-19 is performed using the [employer] m SARS-CoV-2 Assay as authorized by the FDA Emergency Use Authorization (EUA). This EUA assay is intended for In-vitro Diagnostic (IVD) use with respiratory specimens such as nasopharyngeal swabs collected from individuals during the acute phase of infection. This assay is performed based on the instructions for use provided by [employer] and additional guidance provided by CDC and FDA. Testing is performed in the [facility] within the Department of Pathology and Laboratory Medicine at [facility], certified under the Clinical Laboratory Improvement Amendments of 1988 (CLIA), 42 U.S.C. 263a, to perform high complexity tests. Assay performance has been verified according to clinical laboratory regulatory requirements for use with specimens collected from individuals suspected of COVID-19. Test results are provided above. A result of Not Detected indicates that the viral RNA target is not present above the limit of detection, but does not preclude SARS-CoV-2 infection. False negative results may occur if a specimen is improperly collected, transported or handled; if amplification inhibitors are present; or if inadequate numbers of viral particles are present in the specimen. When a diagnostic test is negative, the possibility of a false negative result should be considered in the context of a patient's recent exposures and the presence of clinical signs and symptoms consistent with COVID-19. A result of Detected indicates that RNA from SARS-CoV-2 was detected and the patient is infected. As required or requested by public health authorities, positive specimens may be sent for additional testing. Positive and negative predictive values for this test are highly dependent on disease prevalence. A result of Invalid indicates that neither the viral RNA targets nor the internal control target was detected. An invalid result suggests the presence of inhibitors. Recollection and re-testing is recommended in the case of an invalid result. CDC COVID-19 criteria for testing on human specimens and clinical management guidance information are available at the CDC Coronavirus Disease 2019 (COVID-19) webpage under Information for Healthcare Professionals (https://www.cdc.gov/coronavirus/2019-ncov/hcp/index.html) Additional information about this and other EUA tests can be found in provider and patient fact sheets at the following FDA website: https://www.fda.gov/medical-devices/ruxbmampikd-xcxrnwa-4140-mirxn-15-laugoqgor- mof-pufzatjejruklo-ieufjpa-devices/korfe-btpnxwfgyhm-cyhy SARS-Cov-2 RNA Source MUSIC LIBRARY ASSISTANT Swab Blood culture [[id number]] Collected: 01/07/22 0019 Lab Status: Final result Specimen: Blood Updated: 01/12/22 0701 Blood Culture No growth at 5 days. COVID-19 PCR [[id number]] Collected: 01/06/22 5324 Lab Status: Final result Specimen: Nasopharyngeal Swab Updated: 01/07/22 0324 SARS-CoV-2 RNA PCR Not Detected Comment: This result should be interpreted in combination with the clinical observations, patient history and epidemiological information. For testing of asymptomatic individuals, assay performance characteristics and clinical utility have not been evaluated. Testing for SARS-CoV-2 (Severe acute respiratory syndrome coronavirus 2, formerly known as 2019 novel coronavirus or 2019-nCoV) to aid in the diagnosis of COVID-19 is performed using the [employer] COVID-19 Direct Assay by [employer] as authorized by the FDA issued Emergency Use Authorization (EUA). This assay is intended for In-vitro Diagnostic (IVD) use with nasopharyngeal swabs collected from individuals meeting the CDC criteria for testing. The assay is performed based on the instructions for use and additional guidance provided by the FDA. Testing is performed in the Microbiology Laboratory within the Department of Pathology and Laboratory Medicine at [facility], certified under the Clinical Laboratory Improvement Amendments of 1988 (CLIA), 42 U.S.C. section 263a, to perform high complexity tests. Assay performance has been verified according to clinical laboratory regulatory requirements. Test results are provided above. A result of Not Detected indicates that the viral RNA target is not present but does not preclude SARS-CoV-2 infection. False negative results may occur if a specimen is improperly collected, transported or handled; if amplification inhibitors are present; or if inadequate numbers of viral particles are present in the specimen. A result of Detected suggests a current or recent infection and the patient is presumed to be infected. Positive and negative predictive values for this test are highly dependent on disease prevalence. A result of Invalid indicates the inability to conclusively determine the presence or absence of SARS-CoV-2 RNA in the sample which can be due to a variety of factors. Recollection is recommended in the case of an invalid result. CDC COVID-19 criteria for testing on human specimens and clinical management guidance information are available at the CDC Coronavirus Disease 2019 (COVID-19) webpage under Information for Healthcare Professionals (https://www.cdc.gov/coronavirus/2019-ncov/hcp/index.html). Additional information about this and other EUA tests can be found in provider and patient fact sheets at the following FDA website: https://www.fda.gov/medical-devices/mrkyrhcublt-fbjnhne-9809-krypv-15-iolxgxlmu- pny-nfxvxanozqioky-ojuqlvh-devices/icaej-dcqitniblyn-eucq SARS-CoV-2 Source MUSIC LIBRARY ASSISTANT Swab Imaging: Results for orders placed or performed during the hospital encounter of 01/06/22 XR Chest One View (Exam End: 01/07/2022 1:35 AM) Impression * Endotracheal tube 10 cm above the emmanuel. Please advance. * Enteric tube courses below the diaphragm and beyond the yafsv-uj-zezh. * Minimal central pulmonary vascular congestion. Thank you for letting us participate in the care of this patient. If you are a health care provider and have any questions regarding this report, please contact the number below. For patients who have questions please contact the health plant health care technician that requested your imaging first. Electronically signed by: Bob Escalante MD, [facility] ([phone]), at 01/07/2022 2:06 AM XR Abdomen 1 view (Generic) (Exam End: 01/07/2022 1:35 AM) Impression Enteric tube terminates in the gastric antrum. Thank you for letting us participate in the care of this patient. If you are a health care provider and have any questions regarding this report, please contact the number below. For patients who have questions please contact the health plant health care technician that requested your imaging first. Pelvis (Generic) (Exam End: 01/07/2022 7:10 AM) Impression No acute fracture or dislocation. Thank you for letting us participate in the care of this patient. If you are a health care provider and have any questions regarding this report, please contact the number below. For patients who have questions please contact the health plant health care technician that requested your imaging first. Electronically signed by: Bob Escalante MD, [facility] ([phone]), at 01/07/2022 8:[address] Head wo Contrast (Generic) (Exam End: 01/07/2022 5:07 AM) Impression No acute intracranial pathology. Preliminary report signed by: Andrea Machuca at 01/07/2022 5:16 AM I have personally reviewed the image(s) and the resident's interpretation and agree with the findings, Bob Esaclante MD at 01/07/2022 5:23 AM Thank you for letting us participate in the care of this patient. If you are a health care provider and have any questions regarding this report, please contact the number below. For patients who have questions please contact the health plant health care technician that requested your imaging first. Electronically signed by: Bob Escalante MD, [facility] ([phone]), at 01/07/2022 5:[address] Cervical Spine wo Contrast (Exam End: 01/07/2022 5:07 AM) Impression * No acute fracture or dislocation. * Minimal C3-C4, C4-C5 and C5-C6 retrolistheses. * Multilevel degenerative changes as detailed above. Preliminary report signed by: Andrea Machuca at 01/07/2022 5:23 AM I have personally reviewed the image(s) and the resident's interpretation and agree with the findings, Bob Escalante MD at 01/07/2022 5:28 AM Thank you for letting us participate in the care of this patient. If you are a health care provider and have any questions regarding this report, please contact the number below. For patients who have questions please contact the health plant health care technician that requested your imaging first. Electronically signed by: Bob Escalante MD, [facility] ([phone]), at 01/07/2022 5:28 AM MRI Brain wo Contrast (Exam End: 01/07/2022 4:18 PM) Impression No evidence for acute process. Thank you for letting us participate in the care of this patient. If you are a health care provider and have any questions regarding this report, please contact the number below. For patients who have questions please contact the health plant health care technician that requested your imaging first. Chest One View (Exam End: 01/08/2022 6:53 AM) Impression New bibasilar patchy airspace opacities with total opacification of right middle lobe acute represent aspiration pneumonitis. Thank you for letting us participate in the care of this patient. If you are a health care provider and have any questions regarding this report, please contact the number below. For patients who have questions please contact the health plant health care technician that requested your imaging first. Electronically signed by: Bob Escalante MD, [facility] ([phone]), at 01/08/2022 6:57 AM XR Chest One View (Exam End: 01/09/2022 9:24 PM) Impression Increased confluence of multifocal predominantly lower lobe bilateral pulmonary opacities, compatible with aspiration pneumonitis, with trace right and small left pleural effusions. I have personally reviewed the image(s) and the resident's interpretation and agree with the findings, Lorin Ruelas MD at 01/09/2022 11:00 PM Thank you for letting us participate in the care of this patient. If you are a health care provider and have any questions regarding this report, please contact the number below. For patients who have questions please contact the health plant health care technician that requested your imaging first. Electronically signed by: Lorin Ruelas MD, [facility] ([phone]), at 01/09/2022 11:00 PM MRI Brain wo Contrast (Exam End: 01/11/2022 11:54 AM) Impression Stable MRI without acute findings. Thank you for letting us participate in the care of this patient. If you are a health care provider and have any questions regarding this report, please contact the number below. For patients who have questions please contact the health plant health care technician that requested your imaging first. Electronically signed by: Renetta Sims MD, [facility] ([phone]), at 01/11/2022 12:05 PM XR Abdomen 1 view (Generic) (Exam End: 01/11/2022 2:16 PM) Impression 1. Interval placement of weighted tip enteric catheter with distal tip projecting over the body the stomach. 2. Redemonstration of multifocal opacities in the bilateral lungs suggestive of aspiration pneumonitis. I have personally reviewed the image(s) and the resident's interpretation and agree with the findings, Anjali Hill MD at 01/11/2022 2:43 PM Thank you for letting us participate in the care of this patient. If you are a health care provider and have any questions regarding this report, please contact the number below. For patients who have questions please contact the health plant health care technician that requested your imaging first. Chest One View (Exam End: 01/11/2022 3:41 PM) Impression 1. Worsening bilateral mid to lower lung zones opacities which could represent any combination of aspiration or infection and bilateral layering pleural effusions. 2. There is likely a component of pulmonary edema as well. Thank you for letting us participate in the care of this patient. If you are a health care provider and have any questions regarding this report, please contact the number below. For patients who have questions please contact the health plant health care technician that requested your imaging first. Electronically signed by: Vianey Morrison MD, [facility] ([phone]), at 01/11/2022 3:46 PM XR Chest One View (Exam End: 01/12/2022 2:35 PM) Impression 1. No interval change. 2. Stable bibasilar and perihilar airspace opacities. Thank you for letting us participate in the care of this patient. If you are a health care provider and have any questions regarding this report, please contact the number below. For patients who have questions please contact the health plant health care technician that requested your imaging first. Electronically signed by: Alon Peterson DO, [facility] ([phone]), at 01/12/2022 3:00 PM XR Abdomen 1 view (Generic) (Exam End: 01/12/2022 11:54 PM) Impression 1. Dobbhoff tube terminates within the stomach. 2. No other interval change. Thank you for letting us participate in the care of this patient. If you are a health care provider and have any questions regarding this report, please contact the number below. For patients who have questions please contact the health plant health care technician that requested your imaging first. Electronically signed by: Lorin Ruelas MD, [facility] ([phone]), at 01/13/2022 12:06 AM Inpatient Medications: Scheduled Meds: ??? potassium, sodium phosphates 1.5 g Oral 4 Times Daily ??? lidocaine 3 patch Transdermal Q24H And ??? lidocaine 3 patch Transdermal Q24H ??? polyethylene glycoL (MIRALAX) oral powder 17 g Per NG tube Daily ??? sodium chloride 4 mL Nebulization Q6H While awake ??? enoxaparin 30 mg Subcutaneous Nightly Continuous Infusions: ??? tube feeding diet 48 mL/hr at 01/14/22 0000 PRN Meds:.acetylcysteine, bisacodyL, acetaminophen, potassium chloride in water OR potassium chloride in water OR potassium chloride in water, LORazepam, ipratropium-albuteroL Assessment/Plan: Aziza Grimm J Carlosmj-Azullisbeth??is a??61 y.o.??female with PMH of MDD, OFELIA, migraines who was admitted to theMICU for overdose in attempted suicide req intubation for airway protection, now HDS transferred to. ?? Patient remains encephalopathic and does not answer questions or follow commands. She has reportedly had agitation responsive to benzodiazepenes. Given clonus and tetany as well as hallucinations andagitation with overdose on seretonergic drugs, the leading theory is seretonin syndrome despite lack of tachycardia, HTN, hyperthermia, diaphoresis.??She has been given prn benzos so far. However, also note that w/ an uptrending CK, NMS should be on the ddx as well brent given her rigidity. Tx would be the same as supportive and w/ benzos. Initial Normal MRI and EEG without any epileptiform activity but did note moderate global cerebral dysfunction ?? Respiratory status is markedly improved - RML collapse previously likely due to mucus plugging / aspiration due to poor mental status. Responding to aggressive pulmonary hygiene and is now on NC. Brief episode requiring 100% high flow nasal cannula which resolved with aggressive pulmonary hygiene consistent with mucous plugging. We will continue to closely monitor her respiratory status with low t hreshold to escalate to the ICU. C/w unasyn for 5d total course for asp PNA. Continuing to intermittently diurese with IV Lasix (patient response to 20 mg doses) with marked improvement noted, now on1 L nasal cannula ?? Patient will continue to need 1:1 sitting and psychiatric management due to suicide attempt. Note that the pt's code status was recorded as DNR/DNI and upon conversation w/ her /DPOA, he notesthat this was based on an AD that the pt filled out approximately 1 mo ago. He notes that they had prior discussions re this but that it's unclear if she was in a depressive state of mind at the timeof this AD. Psychiatry engaged who recommended maintaining patient full code as it is uncertain whether or not her DNR status was affected by her suicidality. Psych to reassess once her mentation improves to further clarify this. Question regarding DPOA status as cited by social work, please see their note for detailed assessment of the situation. Repeat brain MRI unremarkable. Mentation is markedly improved compared to admission the hospitalistservice, patient now speaking in full sentences. Fever now much improved following initiation of Tylenol as needed. DHT placed 01/11 for improved nutrition. Given her improved physical/functional status, involving CANAL BOAT OPERATOR for swallow assessment. Trauma surgery to be contacted for removal of c- collar 01/14. ?? Plan: #AMS 2/2 toxic ingestion predominantly sedating medications and ?serotonin syndrome vs NMS - improving - Ativan 0.5mg q6h prn agitation/nausea - APAP 650 q6h prn for pain/fever - MRI brain 01/07 negative - MRI cesar 01/11 unremarkable ?? #MDD, OFELIA, h/o multiple suicide attempts - 1:1 sitter -??holding??home meds:??on ativan, atarax, vilazodone, zolpidem, buspirone, lamictal - psych consult brent re code status (see assessment for details) ?? #Right middle lobe collapse likely mucus plugging #Possible aspiration pneumonia #Pulmonary edema - uncertain etiology - Unasyn 3g 01/08-01/12 - Position on left side when possible, elevate head of bed - intermittent lasix IV 01/11 - p > responds to 20mg IV doses ?? #Bilateral wrist lacerations: s/p sutures - Surgery repaired - on unasyn as above - tetanus 01/07/22 - No active bleeding, continue to monitor ?? #Cspine precautions - Precautions per trauma surgery ?? #macrocytic anemia - Continue to monitor - no signs of active bleeding ?? #Other - DVT ppx: lovenox - GI ppx: H2B - Diet: NPO (pending improvement in mentation), DHT w/ tube feeds - Dispo: pending clinical course Francis Linton MD PGY-1, Internal Medicine Green Team (Pager [phone]) 01/14/22 Associated attestation - Francisco Lynne DO - 01/14/2022 1:08 PM EDT Attending Attestation Please see Dr. Linton's note for details of the patient history of presentation and data. I have discussed, reviewed and agree with the documented History, Physical findings, Assessment and Plan of care. I have examined the patient myself and personally reviewed all studies. In addition, I certify thatI am a [facility]-H credentialed attending provider with admitting privileges and that the patient meets or has met medical necessity to require an inpatient IPI level of care meeting a minimum of two midnights or is on the [facility] inpatient only procedure list (status C) due to: monitoring of fluid status given an inability to regulate fluid balance and the need for administration or restriction of fluids, acute respiratory compromise and/or hypoxia requiring assessment every 4 hours and the ability to respond immediately to the patient's need and severe encephalopathy 59 yo F w/ PMH of severe MDD (multiple prior suicide attempts, prior ECT) presented to ED on 01/06 after polysubstance OD w/ self-inflicted b/l wrist lacerations initially admitted to ICU given need for intubation for airway protection but now medically stable for transfer to on HD2. Poison control was called given presentation and in setting of hyperreflexia, hyperpyrexia, rigidity, prolonged encephalopathy with episodes of agitation symptomatic control with Ativan for suspected serotonin syndrome was recommended. S/p unremarkable Brain MRI, spot EEG. Now with continued interval improvement. Exam today w/o rigidity, normal reflexes and continued improvement in encephalopathy (actively engaged in verbal conversation). Responding to aggressive pulmonary toilet and intermittent hypoxia withdown trending O2 requirement and likely can be RA in coming days. S/p 5 day course of Unasyn ended 01/12. Appreciate surgery clearance of CSpine precautions if able as now more responsive. CANAL BOAT OPERATOR for diet advancement also appreciated once CSpine cleared. Francisco Lynne DO Hospital Medicine 01/14/2022 1:04 PM * Cora Kim S - 01/14/2022 6:43 AM EDT Images from the original note were not included. Inpatient Medicine Progress Note Patient info: Name: Aziza Fields : 1960 PCP: Madhavi Smith APRN PCP phone number: [phone] Date of Admission: 01/06/2022 ( Hospital Day 8 days ) Responsible Attending:Francisco Lynne DO ID: Aziza Fields is a 61 y.o. female with a PMH significant for major depressive disorder, generalized anxiety disorder, and migraines who was admitted to the ICU for suicide attempt and serotonin syndrome. 24 Hour Events/subjective: -Trauma called to remove C-spine precautions, but not removed yet. -Phos repleated -20mg IV Lasix given yesterday -Per nursing, loose bowel movements, clear with no blood. This morning: Speaking in phrases, carried out a full conversation. Says she's not in any pain or nausea. Says she has no complaints other than the C-spine precaution collar. She knows that if she starts to feel nauseous or in pain she can ask her nurse for medications. She is feeling diffusely weak but no dizziness, no headache, no SOB, no abdominal pain. Physical Exam: Last value Range last 24 hrs Temperature Temp: 37.3 ??C (99.14 ??F) Temp: [36.6 ??C (97.9 ??F)-37.7 ??C (99.86 ??F)] Heart Rate Heart Rate: 76 Heart Rate: [73-83] Blood Pressure BP: 137/74 BP: (104-137)/(61-86) Respiratory Rate Resp: 27 Resp: [18-32] SpO2 1L NC SpO2: 97 % SpO2: [94 %-97 %] Intake/Output Summary (Last 24 hours) at 01/14/2022 1047 Last data filed at 01/14/2022 0800 Gross per 24 hour Intake 1352 ml Output 2985 ml Net -1633 ml Patient Vitals for the past 168 hrs: Weight 01/14/22 0000 45.6 kg (100 lb 8.5 oz) 01/13/22 0600 48 kg (105 lb 13.1 oz) 01/12/22 0600 48.6 kg (107 lb 2.3 oz) 01/10/22 0000 49.5 kg (109 lb 2 oz) 01/08/22 0600 49 kg (108 lb 0.4 oz) Admit wt: 46.8 kg -Last BM: Last Bowel Movement: 01/14/22 General: No acute distress, collar in place. Neck: Supple and with no JVD appreciated. HEENT: Pupils equal and reactive to light, extraocular movements intact, no icterus, mucus membranes moist, no legions or sores in the mouth. Cardiovascular: Regular rate and rhythm, normal S1, S2. No murmurs, rubs, or gallops. Pulmonary: Diminished breath sounds (anteriorly), equal bilaterally. Abdomen: Soft, non-tender, non distended. No splenomegaly, no hepatomegaly. Extremities: no edema, pedal pulses palpated bilaterally. Skin: Warm, dry, no rashes or lesions. No jaundice, no ecchymosis, no petechiae. Lymphatics: no lymphadenopathy. Neuro: AOx1. More responsive. Opens eyes and occasionally nods head in response to questions. Triesto answer with short phrases. Scheduled Medications: ??? lidocaine 3 patch Transdermal Q24H And ??? lidocaine 3 patch Transdermal Q24H ??? polyethylene glycoL (MIRALAX) oral powder 17 g Per NG tube Daily ??? sodium chloride 4 mL Nebulization Q6H While awake ??? enoxaparin 30 mg Subcutaneous Nightly PRN Medications: acetylcysteine, bisacodyL, acetaminophen, potassium chloride in water OR potassium chloride in water OR potassium chloride in water, LORazepam, ipratropium-albuteroL Laboratory: *CBC: Hbg going up. Recent Labs 01/14/22 0340 01/13/22 0546 01/12/22 0100 WBC 9.0 7.7 8.5 HGB 11.0* 10.4* 9.4* PLATELET 291 261 192 Recent Labs 01/14/22 0340 01/13/22 0546 01/12/22 1755 01/12/22 1104 01/12/22 0100 NA 134* 136 -- -- 140 K 4.1 4.1 3.6 < > 2.9* CL 101 104 -- -- 106 CO2 24 24 -- -- 21* BUN 13 15 -- -- 17 CREATININE 0.35* 0.39* -- -- 0.48* GLUCOSE 151 140 -- -- 87 < > = values in this interval not displayed. Repleat Phos: Recent Labs 01/14/22 0340 01/13/22 0546 01/12/22 0100 01/08/22 0142 01/07/22 1410 CALCIUM 9.0 8.9 8.6 < > 8.6 MAGNESIUM 0.76 0.76 0.79 < > 0.91 PHOS 3.8 2.3* -- -- 3.7 < > = values in this interval not displayed. CK (01/10): 536 from 1,074 yesterday Microbiology: Imaging/Studies: Chest Xray 01-11: 1. Worsening bilateral mid to lower lung zones opacities which could represent any combination of aspiration or infection and bilateral layering pleural effusions. 2. There is likely a component of pulmonary edema as well. Brain MRI 01/11: 1. Stable MRI without acute findings. Chest Xray: Increased confluence of multifocal predominantly lower lobe bilateral pulmonary opacities, compatible with aspiration pneumonitis, with trace right and small left pleural effusions -Normal MRI -EEG without epileptiform activity. Assessment and Plan: Aziza Fields is a 61 y.o. female with a PMH significant for major depressive disorder, generalized anxiety disorder, and migraines who was admitted to the ICU for suicideattempt and serotonin syndrome. AMS appears to be improving with patient verbally answering to questions with MRI 01/11 was unremarkable. Tube feeds started 01/11, with dobhoff repositioned 01/13. RR remains elevated and Xray 01/11 showed worsening of opacities. Lasix was given with good effect (O2 requirement went down to 1L NC today). Plan to continue Lasix and monitor O2 requirement. In addition, consult speech and PT/OT for evaluation and reach out to trauma regarding c-spine precautions. #Aspiration Pneumonia: Patient required 60% high flow 01/09. 01/11 now down to 40% high flow, 50L/minand O2 sat at 96%. Also right lobe collapse due to mucous plugging. Patient improved when turned toleft side. WBC count is down which is reassuring for infection response. Xray showing worsening of bilateral lower lung opacities however imaging takes longer to resolve and clinically she appears sendy doing better with her O2 requirement. RR is elevated at 30. O2 requirement continues to go down after treatment with lasix, this morning at 95 sat on 1L NC. BUN and Cr continue to be normal. -Continue 20mg IV lasix given marked improvement in O2 requirement. -Monitor BUN and Cr closely. -F/u with trauma for C-spine precaution removal. #Diffuse weakness: Patient remains diffusely weak given her lack of ambulation and long hospital course. -Consult speech for a swallow test and eval. -Consult PT/OT for eval. #Major depressive disorder: patient has a history of MDD and OFELIA with mutiple suicide attempts. Code status is unclear as AD was signed last month in the potential context of depression, so psych consulted and she is now full code. - 1:1 sitter - holding home meds: atarax, vilazodone, zolpidem, buspirone, lamictal -Psych following with plans to interview when patient able. #Altered mental status: Most likely secondary to toxic ingestion of sedating medications. Elevated CK on 01/09 concerning for serotonin syndrome or NMS. 01/11- CK 536 from 1,074 01/11- stop trending. MRI was unremarkable. According to poison control lamotrigine is long acting and she had the rx for many sedating drugs. Benzos remain the best option. Markedly improved 01/14. AOx3, carrying an full conversation appropriately. #Anemia: Low Hbg partially due to bleed from bilateral wrist lacerations. Hgb uptrending. - Continue to monitor - no signs of active bleeding -Maintain transfusion threshold of 7. #Bilateral wrist lacerations: s/p sutures - Surgery repaired - on unasyn as above - tetanus 01/07/22 - No active bleeding, continue to monitor. #Other - DVT ppx: lovenox - GI ppx: H2B - Diet: NPO (pending improvement in mentation) - Dispo: pending clinical course - DPOA: Tunde Kim M3 Medical Student * Patricia Anna, ELECTRONIC INTELLIGENCE OFFICER - 01/13/2022 2:55 PM EDT Respiratory Care High Flow Therapy Settings: O2 Device: Nasal cannula O2 Flow Rate (L/min): 3 L/min FiO2 (%): 21 % Vitals: Resp: 26 SpO2: 95 % Admitted on: 01/06/2022 LOS: 7 days IBW: weight: 59.3 CODE STATUS: Full HPI: Diagnoses of Intentional overdose, initial encounter and Chest pain, unspecified type were pertinent to this visit. PMHx: has a past medical history of Anxiety, Depression, Dyspareunia, Irritable bowel syndrome, andPelvic pain. Skin Integrity: WDL Lung Sounds: Clear and Diminished Assessment: Pt received on HFM on 55 L/min and 21% FIO2 with SPO2 98% RR 26 Pt was transitioned to low flow NC at 3L ,SPO2 95% RR 26 Pt has not required any Airway clearance therapy today She cont to have minimal thin, white secretions with a good spont cough Plan: Consider d/c mucolytic and 3% hypertonic saline , pt cont to have thin secretions , will contto wean oxygen as tolerated * Jolie Oakes - 01/13/2022 10:38 AM EDT Nutrition Progress Note Aziza Fields is a 61 y.o. female with PMH of MDD, OFELIA, migraines who presents with overdosein attempted suicide. Pt now agitated w/ AMS. Reason for intervention: Follow up and ICU Tube-feeding Nutrition Recommendations: Advance diet as medically appropriate. Continue Promote with a goal rate of 48 ml per hour daily. This rate is calculated to compensate for unplanned time off feedings due to potential procedures, etc. At goal, this will provide 960 ml formula, 960 calories, 60 grams protein, 805 ml water from formula and 96% of RDI's for vitamins and minerals. Monitor BMP, mag and phos daily. Replete per protocol. Please check Mag and Phos. Pt at risk for refeeding. Recommend daily multivitamin with minerals. Please weigh daily. I was able to discuss plan with provider Shaila. Active Orders Diet NPO diet (Give Meds) Frequency: Effective Now Number of Occurrences: Until Specified Lab Results Component Value Date NA 136 01/13/2022 K 4.1 01/13/2022 CL 104 01/13/2022 CO2 24 01/13/2022 BUN 15 01/13/2022 CREATININE 0.39 (L) 01/13/2022 ESTGFR 113 01/13/2022 MAGNESIUM 0.76 01/13/2022 CALCIUM 8.9 01/13/2022 PHOS 2.3 (L) 01/13/2022 AST Not Perf 01/07/2022 ALT 70 (H) 01/07/2022 ALKPHOS 39 01/07/2022 BILITOT 0.2 01/07/2022 No results found for: POCGLU Skin Status: Shift Pressure Injury Prevention Occiput: No Injury Thoracic Spine: No Injury Sacral: Existing Injury Ischial - left: No Injury Ischial - right: No Injury Heel - left: No Injury Heel - right: No Injury Elbow - left: No Injury Elbow - right: No Injury Device Sites: NGT, O2 sat monitor, oxygen tubing, IV sites, yuan, ECG Leads, BP Cuff Other Sites: ID Band Relevant medications: PRN potassium chloride 10 mEq Last Bowel Movement: 01/12/22 Admit Weight: 46.8 kg Estimated body mass index is 17.09 kg/m?? as calculated from the following: Height as of this encounter: 167.6 cm (5' 5.98). Weight as of this encounter: 48 kg (105 lb 13.1 oz). [place] Body Weight: 59kg Usual Body Weight: 115lbs per spouse Tunde on 01/08 Weight loss of ~8% body weight x 3 months based Tunde's recall and current admission weight. Wt Readings from Last 10 Encounters: 01/13/22 48 kg (105 lb 13.1 oz) 01/07/22 46.8 kg (103 lb 2.8 oz) 11/20/21 44.5 kg (98 lb) 03/15/18 56.7 kg (125 lb) 10/16/15 54.9 kg (121 lb) 09/30/15 53.5 kg (118 lb) 07/12/12 55.3 kg (122 lb) 07/11/12 55.3 kg (122 lb) 07/07/12 55.3 kg (122 lb) 07/06/12 55.3 kg (122 lb) Assessment: Estimated needs: Calories: 8416-6399 (30-35 kcal/kg)- for weight gain, start slow given risk for refeeding Protein: 74-99 grams (1.5-2g/kg)- pt with stage 2 pressure wound Nutrition Focused Physical Exam (NFPE): Not performed Pt not appropriate for exam at this time w/ visual temporal wasting and overall cachectic appearance. Nutrition intake and intake history/Interview: 01/13: Pt not appropriate for interview at this time. She is currently tolertaing feeds w/o issue. Continue to monitor lytes d/t risk of refeeding. 01/11: Pt not appropriate for interview at this time.TF recs pended per consult. 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 01/08:Airplane Inspector spoke to Aziza's spouse (Tunde) on the phone today. He reports aziza has a terrible homediet, eating only bran flakes for breakfast, skipping lunch and eating fried eggs for supper (estimate this provides a maximum of 550 calories daily- ~38% EER). He reports Aziza has always maintained a low body weight and never wanted to weigh more than 120lbs, she never ate a lot but previously ate enough to sustain. Since she had COVID in September, she has difficulty tasting foods and only eats bran flakes, eggs, peas, asparagus, salsa and veggie burgers. Since September her intake has significantly declined and Tunde reports she now weights less than 100lbs, suggesting about 15lb weight loss in the past 3 months. Tunde tells typewriter operator automatic Aziza has had ONS in the past but did not tolerate them. Ifunable to advance to PO diet, tube feed recs outlined above. Average tube feeding provision over past 2 days; 450mL vs daily goal volume of 960 formula (47% of goal) Tolerance or barriers to meeting needs: feeds reached goal this AM Protein-calorie Malnutrition: Not enough data to assess though at risk given low BMI, subjective report of weight loss and poor PO intake. (Jazmin, IRWIN J Parenteral Enteral Nutr. 2011; 36(3): 273-83) Nutrition to continue to follow up while inpatient Jolie Oakes, Porcelain Enameling Supervisor * Francis Linton MD - 01/13/2022 7:17 AM EDT Images from the original note were not included. Inpatient Hospital Medicine Progress Note Patient ID: Name: Aziza Fields : 1960 PCP: Madhavi Smith APRN PCP phone number: [phone] Date of Admission: 01/06/2022 ( Hospital Day 7 days ) Service: Medicine, Blue Team Responsible Attending:Francisco Lynne, DO ID: Aziza Fields??is a??61 y.o.??female with PMH of MDD, OFELIA, migraines who was admitted tot MICU for overdose in attempted suicide req intubation for airway protection, now HDS transferred to . ?? 24 H/Subjective: - NAEON > 1900: K was 3.6 given 40meq > 2009: NGT clogged, replaced > 2330: c/o chest pain similar to earlier in day, HDS, repeat ekg normal - Chest pain yesterday, negative trop, unremarkable EKG, CXR unchanged - This AM patient's mental status appears stable, able to speak in small phrases, denies pain or nausea Vitals: Last value Range last 24 hrs Temperature Temp: 37.3 ??C (99.14 ??F) Temp: [36.5 ??C (97.7 ??F)-37.7 ??C (99.86 ??F)] Heart Rate Heart Rate: 78 Heart Rate: [67-89] Blood Pressure BP: 120/68 BP: (114-145)/(68-92) Respiratory Rate Resp: 26 Resp: [18-34] SpO2 SpO2: 92 % SpO2: [92 %-97 %] Ins/Outs: Intake/Output Summary (Last 24 hours) at 01/13/2022 0718 Last data filed at 01/13/2022 0600 Gross per 24 hour Intake 1796 ml Output 2460 ml Net -664 ml Patient Vitals for the past 168 hrs: Weight 01/13/22 0600 48 kg (105 lb 13.1 oz) 01/12/22 0600 48.6 kg (107 lb 2.3 oz) 01/10/22 0000 49.5 kg (109 lb 2 oz) 01/08/22 0600 49 kg (108 lb 0.4 oz) 01/06/22 2300 46.8 kg (103 lb 2.8 oz) Admit wt: 46.8 kg Physical Exam Gen: in bed in NAD. C-collar in place HEENT: sclera anicteric, conjunctiva nl ?? CV: RRR, no murmurs/rubs/gallops Resp: ??CTAB, no crackles/wheezes/ronchi, normal work of breathing Abd: normal bowel sounds, soft, non-tender to palpation, no guarding Ext: 2+ distal pulses, no pedal edema Neuro: Rigid though improving.??2-3 myoclonic??jerks in lower extremities. Clonus observed in BL patellar reflex (though marginally improved from prior). Opens eyes spontaneously and to voice, answers most questions appropriately in 1-2 words Skin: b/l wrist lacerations s/p sutures. Labs: Recent Labs 01/13/22 0546 01/12/22 0100 01/11/22 0110 01/10/22 0322 01/09/22 0158 WBC 7.7 8.5 11.1* 8.7 8.4 HGB 10.4* 9.4* 10.3* 10.0* 9.7* PLATELET 261 192 174 116* 141* Recent Labs 01/13/22 0546 01/12/22 1755 01/12/22 1104 01/12/22 0100 01/11/22 0110 01/09/22 1340 01/09/22 0158 01/08/22 0142 01/07/22 1410 01/07/22 0019 NA 136 -- -- 140 137 < > 139 < > 138 140 K 4.1 3.6 5.1* 2.9* 3.8 < > 3.2* < > 4.3 4.3 CL 104 -- -- 106 106 < > 104 < > 105 107 CO2 24 -- -- 21* 20* < > 24 < > 20* 16* BUN 15 -- -- 17 15 < > 13 < > 13 12 CREATININE 0.39* -- -- 0.48* 0.46* < > 0.51* < > 0.74 0.78 GLUCOSE 140 -- -- 87 93 < > 116 < > 125 90 CALCIUM 8.9 -- -- 8.6 8.9 < > 8.4* < > 8.6 8.2* MAGNESIUM 0.76 -- -- 0.79 -- -- 0.79 -- 0.91 0.64* PHOS -- -- -- -- -- -- -- -- 3.7 3.0 < > = values in this interval not displayed. Recent Labs 01/07/22 0019 PROT 5.3* ALBUMIN 3.4 BILITOT 0.2 AST Not Perf ALT 70* ALKPHOS 39 No results for input(s): INR, PT, PTT in the last 72 hours. Recent Labs 01/12/22 1350 01/11/22 0110 01/10/22 0322 01/09/22 0158 CK -- 536* 1,074* 1,682* TROPONINT <0.01 -- -- -- Microbiology: Microbiology Results (Last 30 days) Procedure Component Value Units Date/Time COVID-19 PCR [[id number]] Collected: 01/09/222054 Lab Status: Final result Specimen: Nasopharyngeal Swab Updated: 01/10/22 1442 SARS-CoV-2 RNA Not Detected Comment: This result should be interpreted in combination with the clinical observations, patient history and epidemiological information in making a final diagnosis. For testing of asymptomatic individuals, assay performance characteristics and clinical utility have not been evaluated. Testing for SARS-CoV-2 (Severe acute respiratory syndrome coronavirus 2, formerly known as 2019 novel coronavirus or 2019-nCoV) to aid in the diagnosis of COVID-19 is performed using the [employer] m SARS-CoV-2 Assay as authorized by the FDA Emergency Use Authorization (EUA). This EUA assay is intended for In-vitro Diagnostic (IVD) use with respiratory specimens such as nasopharyngeal swabs collected from individuals during the acute phase of infection. This assay is performed based on the instructions for use provided by [employer] and additional guidance provided by CDC and FDA. Testing is performed in the [facility] within the Department of Pathology and Laboratory Medicine at [facility], certified under the Clinical Laboratory Improvement Amendments of 1988 (CLIA), 42 U.S.C. 263a, to perform high complexity tests. Assay performance has been verified according to clinical laboratory regulatory requirements for use with specimens collected from individuals suspected of COVID-19. Test results are provided above. A result of Not Detected indicates that the viral RNA target is not present above the limit of detection, but does not preclude SARS-CoV-2 infection. False negative results may occur if a specimen is improperly collected, transported or handled; if amplification inhibitors are present; or if inadequate numbers of viral particles are present in the specimen. When a diagnostic test is negative, the possibility of a false negative result should be considered in the context of a patient's recent exposures and the presence of clinical signs and symptoms consistent with COVID-19. A result of Detected indicates that RNA from SARS-CoV-2 was detected and the patient is infected. As required or requested by public health authorities, positive specimens may be sent for additional testing. Positive and negative predictive values for this test are highly dependent on disease prevalence. A result of Invalid indicates that neither the viral RNA targets nor the internal control target was detected. An invalid result suggests the presence of inhibitors. Recollection and re-testing is recommended in the case of an invalid result. CDC COVID-19 criteria for testing on human specimens and clinical management guidance information are available at the CDC Coronavirus Disease 2019 (COVID-19) webpage under Information for Healthcare Professionals (https://www.cdc.gov/coronavirus/2019-ncov/hcp/index.html) Additional information about this and other EUA tests can be found in provider and patient fact sheets at the following FDA website: https://www.fda.gov/medical-devices/cyadytkwwgr-oczsdyf-6852-aviol-40-rhgfzhupf- goj-xmrcfdsnewhxle-tqlkksr-devices/nwplk-kwzrumdqedw-xuml SARS-Cov-2 RNA Source MUSIC LIBRARY ASSISTANT Swab Blood culture [[id number]] Collected: 01/07/22 0019 Lab Status: Final result Specimen: Blood Updated: 01/12/22 0701 Blood Culture No growth at 5 days. COVID-19 PCR [[id number]] Collected: 01/06/22 4675 Lab Status: Final result Specimen: Nasopharyngeal Swab Updated: 01/07/22 0324 SARS-CoV-2 RNA PCR Not Detected Comment: This result should be interpreted in combination with the clinical observations, patient history and epidemiological information. For testing of asymptomatic individuals, assay performance characteristics and clinical utility have not been evaluated. Testing for SARS-CoV-2 (Severe acute respiratory syndrome coronavirus 2, formerly known as 2019 novel coronavirus or 2019-nCoV) to aid in the diagnosis of COVID-19 is performed using the Simplexa COVID-19 Direct Assay by [employer] as authorized by the FDA issued Emergency Use Authorization (EUA). This assay is intended for In-vitro Diagnostic (IVD) use with nasopharyngeal swabs collected from individuals meeting the CDC criteria for testing. The assay is performed based on the instructions for use and additional guidance provided by the FDA. Testing is performed in the Microbiology Laboratory within the Department of Pathology and Laboratory Medicine at [facility], certified under the Clinical Laboratory Improvement Amendments of 1988 (CLIA), 42 U.S.C. section 263a, to perform high complexity tests. Assay performance has been verified according to clinical laboratory regulatory requirements. Test results are provided above. A result of Not Detected indicates that the viral RNA target is not present but does not preclude SARS-CoV-2 infection. False negative results may occur if a specimen is improperly collected, transported or handled; if amplification inhibitors are present; or if inadequate numbers of viral particles are present in the specimen. A result of Detected suggests a current or recent infection and the patient is presumed to be infected. Positive and negative predictive values for this test are highly dependent on disease prevalence. A result of Invalid indicates the inability to conclusively determine the presence or absence of SARS-CoV-2 RNA in the sample which can be due to a variety of factors. Recollection is recommended in the case of an invalid result. CDC COVID-19 criteria for testing on human specimens and clinical management guidance information are available at the CDC Coronavirus Disease 2019 (COVID-19) webpage under Information for Healthcare Professionals (https://www.cdc.gov/coronavirus/2019-ncov/hcp/index.html). Additional information about this and other EUA tests can be found in provider and patient fact sheets at the following FDA website: https://www.fda.gov/medical-devices/fdcqvxndtwo-kouzgwh-1496-qlnxw-13-bnjvlxezd- xpv-cglmtlrsvqtsjf-fikgouv-devices/xbiyk-ybyntcicbpc-evjc SARS-CoV-2 Source [employer] LIBRARY ASSISTANT Swab Imaging: Results for orders placed or performed during the hospital encounter of 01/06/22 XR Chest One View (Exam End: 01/07/2022 1:35 AM) Impression * Endotracheal tube 10 cm above the emmanuel. Please advance. * Enteric tube courses below the diaphragm and beyond the ofygi-vc-rkvz. * Minimal central pulmonary vascular congestion. Thank you for letting us participate in the care of this patient. If you are a health care provider and have any questions regarding this report, please contact the number below. For patients who have questions please contact the health plant health care technician that requested your imaging first. Electronically signed by: Bob Escalante MD, [facility] ([phone]), at 01/07/2022 2:06 AM XR Abdomen 1 view (Generic) (Exam End: 01/07/2022 1:35 AM) Impression Enteric tube terminates in the gastric antrum. Thank you for letting us participate in the care of this patient. If you are a health care provider and have any questions regarding this report, please contact the number below. For patients who have questions please contact the health plant health care technician that requested your imaging first. Electronically signed by: Bob Escalante MD, [facility] ([phone]), at 01/07/2022 2:07 AM XR Pelvis (Generic) (Exam End: 01/07/2022 7:10 AM) Impression No acute fracture or dislocation. Thank you for letting us participate in the care of this patient. If you are a health care provider and have any questions regarding this report, please contact the number below. For patients who have questions please contact the health plant health care technician that requested your imaging first. Electronically signed by: Bob Escalante MD, [facility] ([phone]), at 01/07/2022 8:[address] Head wo Contrast (Generic) (Exam End: 01/07/2022 5:07 AM) Impression No acute intracranial pathology. Preliminary report signed by: Andrea Machuca at 01/07/2022 5:16 AM I have personally reviewed the image(s) and the resident's interpretation and agree with the findings, Bob Escalante MD at 01/07/2022 5:23 AM Thank you for letting us participate in the care of this patient. If you are a health care provider and have any questions regarding this report, please contact the number below. For patients who have questions please contact the health plant health care technician that requested your imaging first. Electronically signed by: Bob Escalante MD, [facility] ([phone]), at 01/07/2022 5:[address] Cervical Spine wo Contrast (Exam End: 01/07/2022 5:07 AM) Impression * No acute fracture or dislocation. * Minimal C3-C4, C4-C5 and C5-C6 retrolistheses. * Multilevel degenerative changes as detailed above. Preliminary report signed by: Andrea Machuca at 01/07/2022 5:23 AM I have personally reviewed the image(s) and the resident's interpretation and agree with the findings, Bob Escalante MD at 01/07/2022 5:28 AM Thank you for letting us participate in the care of this patient. If you are a health care provider and have any questions regarding this report, please contact the number below. For patients who have questions please contact the health plant health care technician that requested your imaging first. Electronically signed by: Bob Escalante MD, [facility] ([phone]), at 01/07/2022 5:28 AM MRI Brain wo Contrast (Exam End: 01/07/2022 4:18 PM) Impression No evidence for acute process. Thank you for letting us participate in the care of this patient. If you are a health care provider and have any questions regarding this report, please contact the number below. For patients who have questions please contact the health plant health care technician that requested your imaging first. Chest One View (Exam End: 01/08/2022 6:53 AM) Impression New bibasilar patchy airspace opacities with total opacification of right middle lobe acute represent aspiration pneumonitis. Thank you for letting us participate in the care of this patient. If you are a health care provider and have any questions regarding this report, please contact the number below. For patients who have questions please contact the health plant health care technician that requested your imaging first. Electronically signed by: Bob Escalante MD, [facility] ([phone]), at 01/08/2022 6:57 AM XR Chest One View (Exam End: 01/09/2022 9:24 PM) Impression Increased confluence of multifocal predominantly lower lobe bilateral pulmonary opacities, compatible with aspiration pneumonitis, with trace right and small left pleural effusions. I have personally reviewed the image(s) and the resident's interpretation and agree with the findings, Lorin Ruelas MD at 01/09/2022 11:00 PM Thank you for letting us participate in the care of this patient. If you are a health care provider and have any questions regarding this report, please contact the number below. For patients who have questions please contact the health plant health care technician that requested your imaging first. Electronically signed by: Lorin Ruelas MD, [facility] ([phone]), at 01/09/2022 11:00 PM MRI Brain wo Contrast (Exam End: 01/11/2022 11:54 AM) Impression Stable MRI without acute findings. Thank you for letting us participate in the care of this patient. If you are a health care provider and have any questions regarding this report, please contact the number below. For patients who have questions please contact the health plant health care technician that requested your imaging first. Electronically signed by: Renetta Sims MD, [facility] ([phone]), at 01/11/2022 12:05 PM XR Abdomen 1 view (Generic) (Exam End: 01/11/2022 2:16 PM) Impression 1. Interval placement of weighted tip enteric catheter with distal tip projecting over the body the stomach. 2. Redemonstration of multifocal opacities in the bilateral lungs suggestive of aspiration pneumonitis. I have personally reviewed the image(s) and the resident's interpretation and agree with the findings, Anjali Hill MD at 01/11/2022 2:43 PM Thank you for letting us participate in the care of this patient. If you are a health care provider and have any questions regarding this report, please contact the number below. For patients who have questions please contact the health plant health care technician that requested your imaging first. Chest One View (Exam End: 01/11/2022 3:41 PM) Impression 1. Worsening bilateral mid to lower lung zones opacities which could represent any combination of aspiration or infection and bilateral layering pleural effusions. 2. There is likely a component of pulmonary edema as well. Thank you for letting us participate in the care of this patient. If you are a health care provider and have any questions regarding this report, please contact the number below. For patients who have questions please contact the health plant health care technician that requested your imaging first. Electronically signed by: Vianey Morrison MD, [facility] ([phone]), at 01/11/2022 3:46 PM XR Chest One View (Exam End: 01/12/2022 2:35 PM) Impression 1. No interval change. 2. Stable bibasilar and perihilar airspace opacities. Thank you for letting us participate in the care of this patient. If you are a health care provider and have any questions regarding this report, please contact the number below. For patients who have questions please contact the health plant health care technician that requested your imaging first. Electronically signed by: Alon Peterson DO, [facility] ([phone]), at 01/12/2022 3:00 PM XR Abdomen 1 view (Generic) (Exam End: 01/12/2022 11:54 PM) Impression 1. Dobbhoff tube terminates within the stomach. 2. No other interval change. Thank you for letting us participate in the care of this patient. If you are a health care provider and have any questions regarding this report, please contact the number below. For patients who have questions please contact the health plant health care technician that requested your imaging first. Electronically signed by: Lorin Ruelas MD, [facility] ([phone]), at 01/13/2022 12:06 AM Inpatient Medications: Scheduled Meds: ??? lidocaine 3 patch Transdermal Q24H And ??? lidocaine 3 patch Transdermal Q24H ??? polyethylene glycoL (MIRALAX) oral powder 17 g Per NG tube Daily ??? acetylcysteine 600 mg Inhalation Q4H ??? sodium chloride 4 mL Nebulization Q6H While awake ??? enoxaparin 30 mg Subcutaneous Nightly Continuous Infusions: ??? tube feeding diet 48 mL/hr at 01/13/22 0600 PRN Meds:.bisacodyL, acetaminophen, potassium chloride in water OR potassium chloride in water OR potassium chloride in water, LORazepam, ipratropium-albuteroL Assessment/Plan: Aziza Spain-Humberto??is a??61 y.o.??female with PMH of MDD, OFELIA, migraines who was admitted to the[facility] for overdose in attempted suicide req intubation for airway protection, now HDS transferred to. ?? Patient remains encephalopathic and does not answer questions or follow commands. She has reportedly had agitation responsive to benzodiazepenes. Given clonus and tetany as well as hallucinations andagitation with overdose on seretonergic drugs, the leading theory is seretonin syndrome despite lack of tachycardia, HTN, hyperthermia, diaphoresis.??She has been given prn benzos so far. However, also note that w/ an uptrending CK, NMS should be on the ddx as well brent given her rigidity. Tx would be the same as supportive and w/ benzos. Initial Normal MRI and EEG without any epileptiform activity but did note moderate global cerebral dysfunction ?? Respiratory status is markedly improved - RML collapse previously likely due to mucus plugging / aspiration due to poor mental status. Responding to aggressive pulmonary hygiene and is now on NC. Brief episode requiring 100% high flow nasal cannula which resolved with aggressive pulmonary hygiene consistent with mucous plugging. We will continue to closely monitor her respiratory status with low t hreshold to escalate to the ICU. C/w unasyn for 5d total course for asp PNA. Repeat imaging 01/12 stable to improve. Electing to intermittently diurese with IV Lasix given concern for pulmonary edema,with remarkable clinical improvement. ?? Patient will need 1:1 sitting and psychiatric management due to suicide attempt. Note that the pt'scode status was recorded as DNR/DNI and upon conversation w/ her /DPOA, he notes that this was based on an AD that the pt filled out approximately 1 mo ago. He notes that they had prior discussions re this but that it's unclear if she was in a depressive state of mind at the time of this AD.Psychiatry engaged who recommended maintaining patient full code as it is uncertain whether or not her DNR status was affected by her suicidality. Psych to reassess once her mentation improves to further clarify this. Question regarding DPOA status as cited by social work, please see their note fordetailed assessment of the situation. Repeat brain MRI unremarkable. Mentation continues to slowly improve, patient is now verbal and answers some questions appropriately and 1-2 word phrases. Fever now much improved following initiationof Tylenol as needed. DHT placed 01/11 for improved nutrition. ?? Plan: #AMS 2/2 toxic ingestion predominantly sedating medications and ?serotonin syndrome vs NMS - Ativan 0.5mg q6h prn agitation/nausea - APAP 650 q6h prn for pain/fever - MRI brain 01/07 negative - MRI cesar 01/11 unremarkable ?? #MDD, OFELIA, h/o multiple suicide attempts - 1:1 sitter -??holding??home meds:??on ativan, atarax, vilazodone, zolpidem, buspirone, lamictal - psych consult brent re code status (see assessment for details) ?? #Right middle lobe collapse likely mucus plugging #Possible aspiration pneumonia #Pulmonary edema - uncertain etiology - Unasyn 3g 01/08-01/12 - Position on left side when possible, elevate head of bed - intermittent lasix IV 01/11 - p ?? #Bilateral wrist lacerations: s/p sutures - Surgery repaired - on unasyn as above - tetanus 01/07/22 - No active bleeding, continue to monitor ?? #Cspine precautions - Precautions per trauma surgery: assessment limited by encephalopathy ?? #macrocytic anemia - Continue to monitor - no signs of active bleeding ?? #Other - DVT ppx: lovenox - GI ppx: H2B - Diet: NPO (pending improvement in mentation), DHT w/ tube feeds - Dispo: pending clinical course Francis Linton MD PGY-1, Internal Medicine Green Team (Pager [phone]) 01/13/22 Associated attestation - Francisco Lynne DO - 01/13/2022 4:17 PM EDT Attending Attestation Please see Dr. Linton's note for details of the patient history of presentation and data. I have discussed, reviewed and agree with the documented History, Physical findings, Assessment and Plan of care. I have examined the patient myself and personally reviewed all studies. In addition, I certify thatI am a [facility] credentialed attending provider with admitting privileges and that the patient meets or has met medical necessity to require an inpatient IPI level of care meeting a minimum of two midnights or is on the [facility] inpatient only procedure list (status C) due to: monitoring of fluid status given an inability to regulate fluid balance and the need for administration or restriction of fluids, acute respiratory compromise and/or hypoxia requiring assessment every 4 hours and the ability to respond immediately to the patient's need and severe encephalopathy 59 yo F w/ PMH of severe MDD (multiple prior suicide attempts, prior ECT) presented to ED on 01/06 after polysubstance OD w/ self-inflicted b/l wrist lacerations initially admitted to ICU given need for intubation for airway protection but now medically stable for transfer to on HD2. Poison control was called given presentation and in setting of hyperreflexia, hyperpyrexia, rigidity, prolonged encephalopathy with episodes of agitation symptomatic control with Ativan for suspected serotonin syndrome was recommended. CK peaked at 1,682 making NMS less likely. She is s/p unremarkable Brain MRI, spot EEG. Exam today improved rigidity, with decreased hyperreflexia and continued improvement in encephalopathy (nods to her name and answers yes/no to simple questions; is verbal for the first time). Responding to aggressive pulmonary toilet and intermittent hypoxia with decreased hypoxia. S/p 5 day courseof Unasyn ended 01/12. Appreciate surgery clearance of CSpine precautions if able as now more responsive. Francisco Lynne DO Hospital Medicine 01/13/2022 4:16 PM * Cora Kim S - 01/13/2022 6:23 AM EDT Images from the original note were not included. Inpatient Medicine Progress Note Patient info: Name: Aziza Fields : 1960 PCP: Madhavi Smith APRN PCP phone number: [phone] Date of Admission: 01/06/2022 ( Hospital Day 7 days ) Responsible Attending:Francisco Lynne DO ID: Aziza Fields is a 61 y.o. female with a PMH significant for major depressive disorder, generalized anxiety disorder, and migraines who was admitted to the ICU for suicide attempt and serotonin syndrome. 24 Hour Events/subjective: -Replaced Dobb Mitchell tube due to clogging. -Gave 20mg IV lasix. -80 mEq K+ given. -Finished Unasyn 01/12. This morning: Responsive to name, shakes head no for pain and again for nausea. Nods to questions appropriately and tries to speak in short phrases. Physical Exam: Last value Range last 24 hrs Temperature Temp: 37.3 ??C (99.14 ??F) Temp: [36.5 ??C (97.7 ??F)-37.7 ??C (99.86 ??F)] Heart Rate Heart Rate: 78 Heart Rate: [67-85] Blood Pressure BP: 120/68 BP: (114-143)/(68-92) Respiratory Rate Resp: 26 Resp: [18-34] SpO2 2L NS SpO2: 95 % SpO2: [92 %-97 %] Intake/Output Summary (Last 24 hours) at 01/13/2022 0813 Last data filed at 01/13/2022 0600 Gross per 24 hour Intake 1472 ml Output 2360 ml Net -888 ml Patient Vitals for the past 168 hrs: Weight 01/13/22 0600 48 kg (105 lb 13.1 oz) 01/12/22 0600 48.6 kg (107 lb 2.3 oz) 01/10/22 0000 49.5 kg (109 lb 2 oz) 01/08/22 0600 49 kg (108 lb 0.4 oz) 01/06/22 2300 46.8 kg (103 lb 2.8 oz) Admit wt: 46.8 kg -Last BM: Last Bowel Movement: 01/12/22 General: No acute distress, collar in place. Neck: Supple and with no JVD appreciated. HEENT: Pupils equal and reactive to light, extraocular movements intact, no icterus, mucus membranes moist, no legions or sores in the mouth. Cardiovascular: Regular rate and rhythm, normal S1, S2. No murmurs, rubs, or gallops. Pulmonary: Diminished breath sounds with crackles on the right (anteriorly). Abdomen: Soft, non-tender, non distended. No splenomegaly, no hepatomegaly. Extremities: no edema, pedal pulses palpated bilaterally. Rigidity and clonus with petallar reflexes. Skin: Warm, dry, no rashes or lesions. No jaundice, no ecchymosis, no petechiae. Lymphatics: no lymphadenopathy. Neuro: AOx1. More responsive. Opens eyes and occasionally nods head in response to questions. Triesto answer with short phrases. *New Medications/Changes in Medications: Scheduled Medications: ??? lidocaine 3 patch Transdermal Q24H And ??? lidocaine 3 patch Transdermal Q24H ??? polyethylene glycoL (MIRALAX) oral powder 17 g Per NG tube Daily ??? acetylcysteine 600 mg Inhalation Q4H ??? sodium chloride 4 mL Nebulization Q6H While awake ??? enoxaparin 30 mg Subcutaneous Nightly PRN Medications: bisacodyL, acetaminophen, potassium chloride in water OR potassium chloride in water OR potassium chloride in water, LORazepam, ipratropium-albuteroL Laboratory: *CBC: Recent Labs 01/13/22 0546 01/12/22 0100 01/11/22 0110 WBC 7.7 8.5 11.1* HGB 10.4* 9.4* 10.3* PLATELET 261 192 174 *Electrolytes: Recent Labs 01/13/22 0546 01/12/22 1755 01/12/22 1104 01/12/22 0100 01/11/22 0110 NA 136 -- -- 140 137 K 4.1 3.6 5.1* 2.9* 3.8 CL 104 -- -- 106 106 CO2 24 -- -- 21* 20* BUN 15 -- -- 17 15 CREATININE 0.39* -- -- 0.48* 0.46* GLUCOSE 140 -- -- 87 93 Recent Labs 01/13/22 0546 01/12/22 0100 01/11/22 0110 01/10/22 0322 01/09/22 0158 01/08/22 0142 01/07/22 1410 01/07/22 0019 CALCIUM 8.9 8.6 8.9 < > 8.4* < > 8.6 8.2* MAGNESIUM 0.76 0.79 -- -- 0.79 -- 0.91 0.64* PHOS -- -- -- -- -- -- 3.7 3.0 < > = values in this interval not displayed. CK (01/10): 536 from 1,074 yesterday Microbiology: Imaging/Studies: Chest Xray 01-11: 1. Worsening bilateral mid to lower lung zones opacities which could represent any combination of aspiration or infection and bilateral layering pleural effusions. 2. There is likely a component of pulmonary edema as well. Brain MRI 01/11: 1. Stable MRI without acute findings. Chest Xray: Increased confluence of multifocal predominantly lower lobe bilateral pulmonary opacities, compatible with aspiration pneumonitis, with trace right and small left pleural effusions -Normal MRI -EEG without epileptiform activity. Assessment and Plan: Aziza Fields is a 61 y.o. female with a PMH significant for major depressive disorder, generalized anxiety disorder, and migraines who was admitted to the ICU for suicideattempt and serotonin syndrome. AMS appears to be improving with patient verbally answering to questions with MRI 01/11 was unremarkable. Tube feeds started 01/11, with dobhoff repositioned 01/13. RR remains elevated and Xray 01/11 showed worsening of opacities. Lasix was given with good effect (O2 requirement went down to 21% FiO2). Plan to continue Lasix and monitor O2 requirement. #Aspiration Pneumonia: Patient required 60% high flow 01/09. 01/11 now down to 40% high flow, 50L/minand O2 sat at 96%. Also right lobe collapse due to mucous plugging. Patient improved when turned toleft side. WBC count is down which is reassuring for infection response. Xray showing worsening of bilateral lower lung opacities however imaging takes longer to resolve and clinically she appears sendy doing better with her O2 requirement. RR is elevated at 30. O2 requirement continues to go down after treatment with lasix, this morning at 95 sat on 2L NC. BUN and Cr continue to be normal. -Continue to lasix for 1 day given marked improvement in O2 requirement. -Monitor BUN and Cr closely. -Position on left side when possible, elevate head of bed #Altered mental status: Most likely secondary to toxic ingestion of sedating medications. Elevated CK on 01/09 concerning for serotonin syndrome or NMS. 01/11- CK 536 from 1,074 01/11- stop trending. MRI was unremarkable. According to poison control lamotrigine is long acting and she had the rx for many sedating drugs. Benzos remain the best option. Appearing to improve. -Continue Ativan 1mg q6h PRN #Major depressive disorder: patient has a history of MDD and OFELIA with mutiple suicide attempts. Code status is unclear as AD was signed last month in the potential context of depression, so psych consulted and she is now full code. - 1:1 sitter - holding home meds: atarax, vilazodone, zolpidem, buspirone, lamictal #Anemia: Low Hbg partially due to bleed from bilateral wrist lacerations. Hgb stable and slowly uptrending. - Continue to monitor - no signs of active bleeding -Maintain transfusion threshold of 7. #Bilateral wrist lacerations: s/p sutures - Surgery repaired - on unasyn as above - tetanus 01/07/22 - No active bleeding, continue to monitor. #Cspine precautions - Precautions per trauma surgery: assessment limited by encephalopathy -Consult Trauma to remove C spine precautions. #Other - DVT ppx: lovenox - GI ppx: H2B - Diet: NPO (pending improvement in mentation) - Dispo: pending clinical course - DPOA: Tunde Matta Judy M3 Medical Student * Daniel Snider RN - 01/12/2022 11:42 PM EDT rm34 [place], Aziza 10fr Dobb Mitchell tube replaced due to clogging. Existing Dobb mitchell tube removed from right nares and replaced with new tubing, into right nares at 65cm. Abd xray confirmed placement into the stomach. No nasal breakdown apparent. Oxygen saturation remains at 94% on room air before, during, and afterprocedure. Wire removed and flushed with 30ml of sterile water with ease. Dobb mitchell secured via bridling. Leigh to use order. Daniel Snider CC SRT RN SBIT 01/12/22 2345p * Jm Centeno, RT - 01/12/2022 8:31 PM EDT Respiratory Therapy Heated Humidified High Flow INDICATIONS: Heat/Humidification HIGH FLOW SETTINGS: Interface: High flow mask Flow: 40 L/min FiO2: 21 % VITAL SIGNS: HR: 78 RR: 26 SpO2: 92 % SKIN ASSESSMENT: Nares Assessment WDL: WDL CURRENT MEDICATIONS: 3% Hypertonic Saline Q6 While Awake Nebulized Medications: n Acetylcystine Q4 BREATH SOUNDS: Diminished Last Chest X-ray: Results for orders placed during the hospital encounter of 01/06/22 XR Chest One View Narrative EXAMINATION: XR CHEST ONE VIEW CLINICAL HISTORY: 61-year-old female with acute chest pain the setting of known aspiration pneumonia. TECHNIQUE: A single AP portable semierect upright radiograph of the chest was obtained. COMPARISON: Comparison is made to multiple prior chest radiograph examinations, the most recent which is dated January 11, 2022.. FINDINGS: There is an enteric catheter present with tip outside the field of view, but below the left hemidiaphragm. Multiple monitoring devices overlie the patient. There are persistent and relatively unchanged confluent airspace opacities with a perihilar and basilar predominance. There is obscuration of the left hemidiaphragm and left cardiac and mediastinal borders. There is partial obscuration of the right hemidiaphragm and cardiac mediastinal borders. There are probable small bilateral pleural effusions. There is no pneumothorax. The trachea is midline. Hilar structures are obscured. The cardia mediastinal contours are obscured. Visualized structures within the inferior neck and superior abdomen are otherwise unremarkable. Osseous structures are unchanged. Impression 1. No interval change. 2. Stable bibasilar and perihilar airspace opacities. Thank you for letting us participate in the care of this patient. If you are a health care provider and have any questions regarding this report, please contact the number below. For patients who have questions please contact the health plant health care technician that requested your imaging first. Electronically signed by: Alon Peterson DO, [facility] ([phone]), at 01/12/2022 3:00 PM ASSESSMENT: Received patient on High Flow Mask 40L 30%, alert and following commands. 0058: FiO2 weaned to 21%, per SpO2. Scheduled treatments admin w/o complications. PLAN: Continue scheduled inhaled medications and support patient on HFM, perform ACT as needed, wean as tolerated. RT Tete * Chun Wang RCP - 01/12/2022 4:57 PM EDT Respiratory Care High Flow Therapy Indication: Heated Humidification Settings: O2 Device: High flow mask O2 Flow Rate (L/min): 55 L/min FiO2 (%): 30 % Vitals: Resp: 29 SpO2: 97 % Skin Integrity: WDL Lung Sounds: Diminished Assessment: Pt maintained well t/o the shift on the HTD HF Plan: Maintain HTD HF * Francis Linton MD - 01/12/2022 7:15 AM EDT Images from the original note were not included. Inpatient Hospital Medicine Progress Note Patient ID: Name: Aziza Fields : 1960 PCP: Madhavi Smith APRN PCP phone number: [phone] Date of Admission: 01/06/2022 ( Hospital Day 6 days ) Service: Medicine, Blue Team Responsible Attending:Francisco Lynne, DO ID: Aziza Fields??is a??61 y.o.??female with PMH of MDD, OFELIA, migraines who was admitted tot MICU for overdose in attempted suicide req intubation for airway protection, now HDS transferred to . ?? 24 H/Subjective: - NAEON - CXR yesterday with pulmonary edema, s/p 20mg IV lasix x1 with good response, continued on unasyn.O2 requirements stable to improving - This AM patient's mental status appears improved, now able to speak, denies pain or nausea Vitals: Last value Range last 24 hrs Temperature Temp: 37.6 ??C (99.68 ??F) Temp: [36.7 ??C (98.1 ??F)-37.9 ??C (100.22 ??F)] Heart Rate Heart Rate: 89 Heart Rate: [74-90] Blood Pressure BP: 145/79 BP: (118-148)/(60-89) Respiratory Rate Resp: 23 Resp: [19-32] SpO2 SpO2: 93 % SpO2: [93 %-98 %] Ins/Outs: Intake/Output Summary (Last 24 hours) at 01/12/2022 1148 Last data filed at 01/12/2022 0800 Gross per 24 hour Intake 1325 ml Output 1865 ml Net -540 ml Patient Vitals for the past 168 hrs: Weight 01/12/22 0600 48.6 kg (107 lb 2.3 oz) 01/10/22 0000 49.5 kg (109 lb 2 oz) 01/08/22 0600 49 kg (108 lb 0.4 oz) 01/06/22 2300 46.8 kg (103 lb 2.8 oz) Admit wt: 46.8 kg Physical Exam Gen: in bed in NAD. C-collar in place HEENT: sclera anicteric, conjunctiva nl ?? CV: RRR, no murmurs/rubs/gallops Resp: ??CTAB, no crackles/wheezes/ronchi, normal work of breathing Abd: normal bowel sounds, soft, non-tender to palpation, no guarding Ext: 2+ distal pulses, no pedal edema Neuro: Rigid.??2-3 myoclonic??jerks in lower extremities. Clonus observed in BL patellar reflex (though marginally improved from prior). Opens eyes spontaneously and to voice, answers most questions appropriately in 1-2 words Skin: b/l wrist lacerations s/p sutures. Labs: Recent Labs 01/12/22 0100 01/11/22 0110 01/10/22 0322 01/09/22 0158 01/08/22 014 WBC 8.5 11.1* 8.7 8.4 6.9 HGB 9.4* 10.3* 10.0* 9.7* 9.9* PLATELET 192 174 116* 141* 145 Recent Labs 01/12/22 0100 01/11/22 0110 01/10/22 1405 01/10/22 0322 01/09/22 1340 01/09/22 0158 01/08/22 0142 01/07/22 1410 01/07/22 0019 NA 140 137 -- 139 -- 139 < > 138 140 K 2.9* 3.8 4.3 3.7 < > 3.2* < > 4.3 4.3 CL 106 106 -- 106 -- 104 < > 105 107 CO2 21* 20* -- 22 -- 24 < > 20* 16* BUN 17 15 -- 13 -- 13 < > 13 12 CREATININE 0.48* 0.46* -- 0.50* -- 0.51* < > 0.74 0.78 GLUCOSE 87 93 -- 141 -- 116 < > 125 90 CALCIUM 8.6 8.9 -- 8.3* -- 8.4* < > 8.6 8.2* MAGNESIUM 0.79 -- -- -- -- 0.79 -- 0.91 0.64* PHOS -- -- -- -- -- -- -- 3.7 3.0 < > = values in this interval not displayed. Recent Labs 01/07/22 001 PROT 5.3* ALBUMIN 3.4 BILITOT 0.2 AST Not Perf ALT 70* ALKPHOS 39 No results for input(s): INR, PT, PTT in the last 72 hours. Recent Labs 01/11/22 0110 01/10/22 0322 01/09/22157 CK 536* 1,074* 1,682* Microbiology: Microbiology Results (Last 30 days) Procedure Component Value Units Date/Time COVID-19 PCR [[id number]] Collected: 01/09/222054 Lab Status: Final result Specimen: Nasopharyngeal Swab Updated: 01/10/221441 SARS-CoV-2 RNA Not Detected Comment: This result should be interpreted in combination with the clinical observations, patient history and epidemiological information in making a final diagnosis. For testing of asymptomatic individuals, assay performance characteristics and clinical utility have not been evaluated. Testing for SARS-CoV-2 (Severe acute respiratory syndrome coronavirus 2, formerly known as 2019 novel coronavirus or 2019-nCoV) to aid in the diagnosis of COVID-19 is performed using the [employer] m SARS-CoV-2 Assay as authorized by the FDA Emergency Use Authorization (EUA). This EUA assay is intended for In-vitro Diagnostic (IVD) use with respiratory specimens such as nasopharyngeal swabs collected from individuals during the acute phase of infection. This assay is performed based on the instructions for use provided by [employer] and additional guidance provided by CDC and FDA. Testing is performed in the [facility] within the Department of Pathology and Laboratory Medicine at [facility], certified under the Clinical Laboratory Improvement Amendments of 1988 (CLIA), 42 U.S.C. 263a, to perform high complexity tests. Assay performance has been verified according to clinical laboratory regulatory requirements for use with specimens collected from individuals suspected of COVID-19. Test results are provided above. A result of Not Detected indicates that the viral RNA target is not present above the limit of detection, but does not preclude SARS-CoV-2 infection. False negative results may occur if a specimen is improperly collected, transported or handled; if amplification inhibitors are present; or if inadequate numbers of viral particles are present in the specimen. When a diagnostic test is negative, the possibility of a false negative result should be considered in the context of a patient's recent exposures and the presence of clinical signs and symptoms consistent with COVID-19. A result of Detected indicates that RNA from SARS-CoV-2 was detected and the patient is infected. As required or requested by public health authorities, positive specimens may be sent for additional testing. Positive and negative predictive values for this test are highly dependent on disease prevalence. A result of Invalid indicates that neither the viral RNA targets nor the internal control target was detected. An invalid result suggests the presence of inhibitors. Recollection and re-testing is recommended in the case of an invalid result. CDC COVID-19 criteria for testing on human specimens and clinical management guidance information are available at the CDC Coronavirus Disease 2019 (COVID-19) webpage under Information for Healthcare Professionals (https://www.cdc.gov/coronavirus/2019-ncov/hcp/index.html) Additional information about this and other EUA tests can be found in provider and patient fact sheets at the following FDA website: https://www.fda.gov/medical-devices/robinvujlbs-czntwre-0031-pdmta-83-doprefezn- dhq-rrtyaieltomnuo-azioyef-devices/qpllo-xaaisoubvwi-ooln SARS-Cov-2 RNA Source [employer]ARY ASSIST[employer] Swab Blood culture [[id number]] Collected: 01/07/22 0019 Lab Status: Final result Specimen: Blood Updated: 01/12/22 0701 Blood Culture No growth at 5 days. COVID-19 PCR [[id number]] Collected: 01/06/22 2359 Lab Status: Final result Specimen: Nasopharyngeal Swab Updated: 01/07/22 0324 SARS-CoV-2 RNA PCR Not Detected Comment: This result should be interpreted in combination with the clinical observations, patient history and epidemiological information. For testing of asymptomatic individuals, assay performance characteristics and clinical utility have not been evaluated. Testing for SARS-CoV-2 (Severe acute respiratory syndrome coronavirus 2, formerly known as 2019 novel coronavirus or 2019-nCoV) to aid in the diagnosis of COVID-19 is performed using the [employer] COVID-19 Direct Assay by [employer] as authorized by the FDA issued Emergency Use Authorization (EUA). This assay is intended for In-vitro Diagnostic (IVD) use with nasopharyngeal swabs collected from individuals meeting the CDC criteria for testing. The assay is performed based on the instructions for use and additional guidance provided by the FDA. Testing is performed in the Microbiology Laboratory within the Department of Pathology and Laboratory Medicine at [facility], certified under the Clinical Laboratory Improvement Amendments of 1988 (CLIA), 42 U.S.C. section 263a, to perform high complexity tests. Assay performance has been verified according to clinical laboratory regulatory requirements. Test results are provided above. A result of Not Detected indicates that the viral RNA target is not present but does not preclude SARS-CoV-2 infection. False negative results may occur if a specimen is improperly collected, transported or handled; if amplification inhibitors are present; or if inadequate numbers of viral particles are present in the specimen. A result of Detected suggests a current or recent infection and the patient is presumed to be infected. Positive and negative predictive values for this test are highly dependent on disease prevalence. A result of Invalid indicates the inability to conclusively determine the presence or absence of SARS-CoV-2 RNA in the sample which can be due to a variety of factors. Recollection is recommended in the case of an invalid result. CDC COVID-19 criteria for testing on human specimens and clinical management guidance information are available at the CDC Coronavirus Disease 2019 (COVID-19) webpage under Information for Healthcare Professionals (https://www.cdc.gov/coronavirus/2019-ncov/hcp/index.html). Additional information about this and other EUA tests can be found in provider and patient fact sheets at the following FDA website: https://www.fda.gov/medical-devices/hvyxziymsvr-bdkcsqz-7854-jhzzi-50-jyoktndty- ppz-yfeuyypeikeauc-yhhynto-devices/hvivj-yayfnujphwr-ckwr SARS-CoV-2 Source [employer] LIBRARY ASSISTANT Swab Imaging: Results for orders placed or performed during the hospital encounter of 01/06/22 XR Chest One View (Exam End: 01/07/2022 1:35 AM) Impression * Endotracheal tube 10 cm above the emmanuel. Please advance. * Enteric tube courses below the diaphragm and beyond the [id number]. * Minimal central pulmonary vascular congestion. Thank you for letting us participate in the care of this patient. If you are a health care provider and have any questions regarding this report, please contact the number below. For patients who have questions please contact the health plant health care technician that requested your imaging first. Electronically signed by: Bob Escalante MD, [facility] ([phone]), at 01/07/2022 2:06 AM XR Abdomen 1 view (Generic) (Exam End: 01/07/2022 1:35 AM) Impression Enteric tube terminates in the gastric antrum. Thank you for letting us participate in the care of this patient. If you are a health care provider and have any questions regarding this report, please contact the number below. For patients who have questions please contact the health plant health care technician that requested your imaging first. Electronically signed by: Bob Escalante MD, [facility] ([phone]), at 01/07/2022 2:07 AM XR Pelvis (Generic) (Exam End: 01/07/2022 7:10 AM) Impression No acute fracture or dislocation. Thank you for letting us participate in the care of this patient. If you are a health care provider and have any questions regarding this report, please contact the number below. For patients who have questions please contact the health plant health care technician that requested your imaging first. Electronically signed by: Bob Escalante MD, [facility] ([phone]), at 01/07/2022 8:[address] Head wo Contrast (Generic) (Exam End: 01/07/2022 5:07 AM) Impression No acute intracranial pathology. Preliminary report signed by: Andrea Machuca at 01/07/2022 5:16 AM I have personally reviewed the image(s) and the resident's interpretation and agree with the findings, Bob Escalante MD at 01/07/2022 5:23 AM Thank you for letting us participate in the care of this patient. If you are a health care provider and have any questions regarding this report, please contact the number below. For patients who have questions please contact the health plant health care technician that requested your imaging first. Electronically signed by: Bob Escalante MD, [facility] ([phone]), at 01/07/2022 5:[address] Cervical Spine wo Contrast (Exam End: 01/07/2022 5:07 AM) Impression * No acute fracture or dislocation. * Minimal C3-C4, C4-C5 and C5-C6 retrolistheses. * Multilevel degenerative changes as detailed above. Preliminary report signed by: Andrea Machuca at 01/07/2022 5:23 AM I have personally reviewed the image(s) and the resident's interpretation and agree with the findings, oBb Escalante MD at 01/07/2022 5:28 AM Thank you for letting us participate in the care of this patient. If you are a health care provider and have any questions regarding this report, please contact the number below. For patients who have questions please contact the health plant health care technician that requested your imaging first. Electronically signed by: Bob Escalante MD, [facility] ([phone]), at 01/07/2022 5:28 AM MRI Brain wo Contrast (Exam End: 01/07/2022 4:18 PM) Impression No evidence for acute process. Thank you for letting us participate in the care of this patient. If you are a health care provider and have any questions regarding this report, please contact the number below. For patients who have questions please contact the health plant health care technician that requested your imaging first. Chest One View (Exam End: 01/08/2022 6:53 AM) Impression New bibasilar patchy airspace opacities with total opacification of right middle lobe acute represent aspiration pneumonitis. Thank you for letting us participate in the care of this patient. If you are a health care provider and have any questions regarding this report, please contact the number below. For patients who have questions please contact the health plant health care technician that requested your imaging first. Electronically signed by: Bob Escalante MD, [facility] ([phone]), at 01/08/2022 6:57 AM XR Chest One View (Exam End: 01/09/2022 9:24 PM) Impression Increased confluence of multifocal predominantly lower lobe bilateral pulmonary opacities, compatible with aspiration pneumonitis, with trace right and small left pleural effusions. I have personally reviewed the image(s) and the resident's interpretation and agree with the findings, Lorin Ruelas MD at 01/09/2022 11:00 PM Thank you for letting us participate in the care of this patient. If you are a health care provider and have any questions regarding this report, please contact the number below. For patients who have questions please contact the health plant health care technician that requested your imaging first. Electronically signed by: Lorin Ruelas MD, [facility] ([phone]), at 01/09/2022 11:00 PM MRI Brain wo Contrast (Exam End: 01/11/2022 11:54 AM) Impression Stable MRI without acute findings. Thank you for letting us participate in the care of this patient. If you are a health care provider and have any questions regarding this report, please contact the number below. For patients who have questions please contact the health plant health care technician that requested your imaging first. Electronically signed by: Renetta Sims MD, [facility] ([phone]), at 01/11/2022 12:05 PM XR Abdomen 1 view (Generic) (Exam End: 01/11/2022 2:16 PM) Impression 1. Interval placement of weighted tip enteric catheter with distal tip projecting over the body the stomach. 2. Redemonstration of multifocal opacities in the bilateral lungs suggestive of aspiration pneumonitis. I have personally reviewed the image(s) and the resident's interpretation and agree with the findings, Anjali Hill MD at 01/11/2022 2:43 PM Thank you for letting us participate in the care of this patient. If you are a health care provider and have any questions regarding this report, please contact the number below. For patients who have questions please contact the health plant health care technician that requested your imaging first. Chest One View (Exam End: 01/11/2022 3:41 PM) Impression 1. Worsening bilateral mid to lower lung zones opacities which could represent any combination of aspiration or infection and bilateral layering pleural effusions. 2. There is likely a component of pulmonary edema as well. Thank you for letting us participate in the care of this patient. If you are a health care provider and have any questions regarding this report, please contact the number below. For patients who have questions please contact the health plant health care technician that requested your imaging first. Electronically signed by: Vianey Morrison MD, [facility] ([phone]), at 01/11/2022 3:46 PM Inpatient Medications: Scheduled Meds: ??? polyethylene glycoL (MIRALAX) oral powder 17 g Per NG tube Daily ??? acetylcysteine 600 mg Inhalation Q4H ??? ampicillin-sulbactam 3 g Intravenous Q6H ??? sodium chloride 4 mL Nebulization Q6H While awake ??? enoxaparin 30 mg Subcutaneous Nightly Continuous Infusions: ??? tube feeding diet 30 mL/hr at 01/12/22 0815 PRN Meds:.bisacodyL, acetaminophen, acetaminophen, potassium chloride in water OR potassium chloride in water OR potassium chloride in water, LORazepam, ipratropium-albuteroL Assessment/Plan: Aziza Spain-Azullisbeth??is a??61 y.o.??female with PMH of MDD, OFELIA, migraines who was admitted to theMICU for overdose in attempted suicide req intubation for airway protection, now HDS transferred to. ?? Patient remains encephalopathic and does not answer questions or follow commands. She has reportedly had agitation responsive to benzodiazepenes. Given clonus and tetany as well as hallucinations andagitation with overdose on seretonergic drugs, the leading theory is seretonin syndrome despite lack of tachycardia, HTN, hyperthermia, diaphoresis.??She has been given prn benzos so far. However, also note that w/ an uptrending CK, NMS should be on the ddx as well brent given her rigidity. Tx would be the same as supportive and w/ benzos. Initial Normal MRI and EEG without any epileptiform activity but did note moderate global cerebral dysfunction ?? Respiratory status is stable - RML collapse previously likely due to mucus plugging / aspiration due to poor mental status. Responding to aggressive pulmonary hygiene and is now fluctuating ~30% HFNC. Brief episode requiring 100% high flow nasal cannula which resolved with aggressive pulmonary hygiene consistent with mucous plugging. We will continue to closely monitor her respiratory status withlow threshold to escalate to the ICU. C/w unasyn for 5d total course for asp PNA. Repeat imaging 01/11 with interval worsening, however this is in the setting of clinical improvement, it is possible the radiologic changes are lagging behind her clinical status. Electing to intermittently diurese with IV Lasix given concern for pulmonary edema. ?? Patient will need 1:1 sitting and psychiatric management due to suicide attempt. Note that the pt'scode status was recorded as DNR/DNI and upon conversation w/ her /DPOA, he notes that this was based on an AD that the pt filled out approximately 1 mo ago. He notes that they had prior discussions re this but that it's unclear if she was in a depressive state of mind at the time of this AD.Psychiatry engaged who recommended maintaining patient full code as it is uncertain whether or not her DNR status was affected by her suicidality. Psych to reassess once her mentation improves to further clarify this. Question regarding DPOA status as cited by social work, please see their note fordetailed assessment of the situation. Repeat brain MRI unremarkable. Mentation continues to slowly improve, patient is now verbal and answers some questions appropriately and 1-2 word phrases. Fever now much improved following initiationof Tylenol as needed. DHT placed 01/11 for improved nutrition. ?? Plan: #AMS 2/2 toxic ingestion predominantly sedating medications and ?serotonin syndrome vs NMS - Ativan 0.5mg q6h prn agitation/nausea - APAP 650 q6h prn for pain/fever - MRI brain 01/07 negative - MRI cesar 01/11 unremarkable ?? #MDD, OFELIA, h/o multiple suicide attempts - 1:1 sitter -??holding??home meds:??on ativan, atarax, vilazodone, zolpidem, buspirone, lamictal - psych consult brent re code status (see assessment for details) ?? #Right middle lobe collapse likely mucus plugging #Possible aspiration pneumonia - Unasyn 3g 01/08-01/12 - Position on left side when possible, elevate head of bed - intermittent lasix IV 01/11 - p ?? #Bilateral wrist lacerations: s/p sutures - Surgery repaired - on unasyn as above - tetanus 01/07/22 - No active bleeding, continue to monitor ?? #Cspine precautions - Precautions per trauma surgery: assessment limited by encephalopathy ?? #macrocytic anemia - Continue to monitor - no signs of active bleeding ?? #Other - DVT ppx: lovenox - GI ppx: H2B - Diet: NPO (pending improvement in mentation), DHT w/ tube feeds - Dispo: pending clinical course Francis Linton MD PGY-1, Internal Medicine Green Team (Pager [phone]) 01/12/22 Associated attestation - Francisco Lynne DO - 01/12/2022 5:22 PM EDT Attending Attestation Please see Dr. Linton's note for details of the patient history of presentation and data. I have discussed, reviewed and agree with the documented History, Physical findings, Assessment and Plan of care. I have examined the patient myself and personally reviewed all studies. In addition, I certify thatI am a D-H credentialed attending provider with admitting privileges and that the patient meets or has met medical necessity to require an inpatient IPI level of care meeting a minimum of two midnights or is on the [facility] inpatient only procedure list (status C) due to: monitoring of fluid status given an inability to regulate fluid balance and the need for administration or restriction of fluids, acute respiratory compromise and/or hypoxia requiring assessment every 4 hours and the ability to respond immediately to the patient's need and severe encephalopathy 59 yo F w/ PMH of severe MDD (multiple prior suicide attempts, prior ECT) presented to ED on 01/06 after polysubstance OD w/ self-inflicted b/l wrist lacerations initially admitted to ICU given need for intubation for airway protection but now medically stable for transfer to on HD2. Poison control was called given presentation and in setting of hyperreflexia, hyperpyrexia, rigidity, prolonged encephalopathy with episodes of agitation symptomatic control with Ativan for suspected serotonin syndrome was recommended. CK peaked at 1,682 making NMS less likely. She is s/p unremarkable Brain MRI, spot EEG. Still intermittently rigid, with hyperreflexia and slow improvement in encephalopathy (nods to her name and answers yes/no to simple questions). We will be aggressive with pulmonary hygiene (RT assistance appreciated) and continue Unasyn for now. Will give full medical support now, despite prior DNR/DNI, as this was made in context of presumed severe depression last month. May need cesar MRI in coming days to further prognosticate return of any functional status. Francisco Lynne DO [facility] Medicine 01/12/2022 5:22 PM * Judy Cora S - 01/12/2022 6:51 AM EDT Images from the original note were not included. Inpatient Medicine Progress Note Patient info: Name: Aziza Fields : 1960 PCP: Madhavi Smith APRN PCP phone number: [phone] Date of Admission: 01/06/2022 ( Hospital Day 6 days ) Responsible Attending:Francisco Lynne DO ID: Aziza Fields is a 61 y.o. female with a PMH significant for major depressive disorder, generalized anxiety disorder, and migraines who was admitted to the ICU for suicide attempt and serotonin syndrome. 24 Hour Events/subjective: -Started tube feeds -Lasix yesterday This morning: Responsive to name, shakes head no for pain and again for nausea. Nods to questions approprately. Physical Exam: Last value Range last 24 hrs Temperature Temp: 37.4 ??C (99.32 ??F) Temp: [36.7 ??C (98.1 ??F)-37.9 ??C (100.22 ??F)] Heart Rate Heart Rate: 90 Heart Rate: [74-90] Blood Pressure BP: 140/89 BP: (118-160)/(60-89) Respiratory Rate Elevated (30 going up to 35) Resp: 21 Resp: [19-32] SpO2 30% FiO2 (55L) SpO2: 95 % SpO2: [94 %-99 %] Intake/Output Summary (Last 24 hours) at 01/12/2022 0758 Last data filed at 01/12/2022 0600 Gross per 24 hour Intake 1269 ml Output 1945 ml Net -676 ml Patient Vitals for the past 168 hrs: Weight 01/12/22 0600 48.6 kg (107 lb 2.3 oz) 01/10/22 0000 49.5 kg (109 lb 2 oz) 01/08/22 0600 49 kg (108 lb 0.4 oz) 01/06/22 2300 46.8 kg (103 lb 2.8 oz) Admit wt: 46.8 kg -Last BM: 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 Neck: Supple and with no JVD appreciated. HEENT: Pupils equal and reactive to light, extraocular movements intact, no icterus, mucus membranes moist, no legions or sores in the mouth. Cardiovascular: Regular rate and rhythm, normal S1, S2. No murmurs, rubs, or gallops. Pulmonary: Diminished breath sounds with crackles on the right (anteriorly). Abdomen: Soft, non-tender, non distended. No splenomegaly, no hepatomegaly. Extremities: no edema, pedal pulses palpated bilaterally. Rigidity and clonus with petallar reflexes. Skin: Warm, dry, no rashes or lesions. No jaundice, no ecchymosis, no petechiae. Lymphatics: no lymphadenopathy. Neuro: Not responsive. Opens eyes and occasionally nods head in response to questions. *New Medications/Changes in Medications: Scheduled Medications: ??? potassium chloride ER 40 mEq Oral Once ??? bisacodyL 10 mg Rectal Daily ??? polyethylene glycoL (MIRALAX) oral powder 17 g Per NG tube Daily ??? acetylcysteine 600 mg Inhalation Q4H ??? ampicillin-sulbactam 3 g Intravenous Q6H ??? sodium chloride 4 mL Nebulization Q6H While awake ??? enoxaparin 30 mg Subcutaneous Nightly PRN Medications: acetaminophen, acetaminophen, potassium chloride in water OR potassium chloride in water ORpotassium chloride in water, LORazepam, ipratropium-albuteroL Laboratory: *CBC: Recent Labs 01/12/22 0100 01/11/22 0110 01/10/22 0322 WBC 8.5 11.1* 8.7 HGB 9.4* 10.3* 10.0* PLATELET 192 174 116* *Electrolytes: Recent Labs 01/12/22 0100 01/11/22 0110 01/10/22 1405 01/10/22 0322 NA 140 137 -- 139 K 2.9* 3.8 4.3 3.7 CL 106 106 -- 106 CO2 21* 20* -- 22 BUN 17 15 -- 13 CREATININE 0.48* 0.46* -- 0.50* GLUCOSE 87 93 -- 141 Recent Labs 01/12/22 0100 01/11/22 0110 01/10/22 0322 01/09/22 0158 01/08/22 0142 01/07/22 1410 01/07/22 0019 CALCIUM 8.6 8.9 8.3* 8.4* < > 8.6 8.2* MAGNESIUM 0.79 -- -- 0.79 -- 0.91 0.64* PHOS -- -- -- -- -- 3.7 3.0 < > = values in this interval not displayed. CK (01/10): 536 from 1,074 yesterday Microbiology: Imaging/Studies: Chest Xray 01-11: 1. Worsening bilateral mid to lower lung zones opacities which could represent any combination of aspiration or infection and bilateral layering pleural effusions. ??2. There is likely a component of pulmonary edema as well. Brain MRI 01/11: 1. Stable MRI without acute findings. Chest Xray: Increased confluence of multifocal predominantly lower lobe bilateral pulmonary opacities, compatible with aspiration pneumonitis, with trace right and small left pleural effusions -Normal MRI -EEG without epileptiform activity. Assessment and Plan: Aziza Fields is a 61 y.o. female with a PMH significant for major depressive disorder, generalized anxiety disorder, and migraines who was admitted to the ICU for suicideattempt and serotonin syndrome. AMS appears to be improving with patient verbally answering to questions with MRI 01/11 was unremarkable. Tube feeds started 01/11. RR remains elevated and Xray 01/11 showed worsening of opacities. Lasix was given 01/11 with good effect (O2 requirement went down to 30% FiO2). Plan to continue Lasix and monitor O2 requirement. #Aspiration Pneumonia: Patient required 60% high flow 01/09. 01/11 now down to 40% high flow, 50L/minand O2 sat at 96%. Also right lobe collapse due to mucous plugging. Patient improved when turned toleft side. WBC count is down which is reassuring for infection response. Xray showing worsening of bilateral lower lung opacities. RR is elevated at 31. -Last day of Unasyn 3g 01/08-01/12 (5 day course for aspiration pnemonia) -Position on left side when possible, elevate head of bed -Lasix 20 IV #Altered mental status: Most likely secondary to toxic ingestion of sedating medications. Elevated CK on 01/09 concerning for serotonin syndrome or NMS. 01/11- CK 536 from 1,074 01/11- stop trending. MRI was negative but low threshold for re-imaging to r/u hypoxic brain injury. Fever is improving. According to poison control lamotrigine is long acting and she had the rx for many sedating drugs. Benzos remain the best option. Appearing to improve. -Continue Ativan 1mg q6h PRN #Electrolytes: K+ down. -Give K+ IV PRN -Measure K+ this afternoon to trend. #Major depressive disorder: patient has a history of MDD and OFELIA with mutiple suicide attempts. Code status is unclear as AD was signed last month in the potential context of depression, so psych consulted and she is now full code. - 1:1 sitter -??holding??home meds: atarax, vilazodone, zolpidem, buspirone, lamictal #Anemia: MCV suggest macrocytic. Low Hbg partially due to bleed from bilateral wrist lacerations. Hgb stable and slowly uptrending. - Continue to monitor - no signs of active bleeding -Maintain transfusion threshold of 7. ?? #Bilateral wrist lacerations: s/p sutures - Surgery repaired - on unasyn as above - tetanus 01/07/22 - No active bleeding, continue to monitor. ?? #Cspine precautions - Precautions per trauma surgery: assessment limited by encephalopathy ?? #Other - DVT ppx: lovenox - GI ppx: H2B - Diet: NPO (pending improvement in mentation) - Dispo: pending clinical course - DPOA: Tunde IrvinLeslye Kim M3 Medical Student * Kirsten Tillman RT - 01/11/2022 8:00 PM EDT Respiratory Therapy Heated Humidified High Flow INDICATIONS: High O2 requirement HIGH FLOW SETTINGS: Interface: High flow mask Flow: 55 L/min FiO2: 40 % VITAL SIGNS: HR: 78 RR: 27 SpO2: 96 % SKIN ASSESSMENT: Nares Assessment WDL: WDL CURRENT MEDICATIONS: , Nebulized Medications: n Acetylcystine BREATH SOUNDS: diminished coarse Last Chest X-ray: Results for orders placed during the hospital encounter of 01/06/22 XR Chest One View Narrative EXAMINATION: XR CHEST ONE VIEW CLINICAL HISTORY: serial follow-up of known aspiration pneumonitis in the setting of new tachypnea serial follow-up of known aspiration pneumonitis in the setting of new tahchypnea (as entered by ordering provider in the order requisition) TECHNIQUE: Portable AP view the chest COMPARISON: Chest radiograph 01/09/2022 FINDINGS: Worsening opacities of the bilateral mid to lower lung zones with perihilar fullness and indistinctness of vasculature. The new opacities largely obscure the cardiomediastinal silhouette. There is an enteric tube which courses below the inferior margin of the study. Impression 1. Worsening bilateral mid to lower lung zones opacities which could represent any combination of aspiration or infection and bilateral layering pleural effusions. 2. There is likely a component of pulmonary edema as well. Thank you for letting us participate in the care of this patient. If you are a health care provider and have any questions regarding this report, please contact the number below. For patients who have questions please contact the health plant health care technician that requested your imaging first. Electronically signed by: Vianey Morrison MD, [facility] ([phone]), at 01/11/2022 3:46 PM ASSESSMENT: pt comfortable on the above settings. PLAN: wean as tolerated if able. Weaned to 30% this shift. Will continue to monitor and support. RT Susan * Jolie Oakes - 01/11/2022 11:39 AM EDT Nutrition Consult Note Aizza Fields is a 61 y.o. female with PMH of MDD, OFELIA, migraines who presents with overdosein attempted suicide. Pt now agitated w/ AMS. Reason for intervention: ICU Tube-feeding Nutrition Recommendations: Advance diet as medically appropriate. Promote with a goal rate of 48 ml per hour daily. This rate is calculated to compensate for unplanned time off feedings due to potential procedures, etc. At goal, this will provide 960 ml formula, 960 calories, 60 grams protein, 805 ml water from formula and 96% of RDI's for vitamins and minerals. Monitor BMP, mag and phos daily. Replete per protocol. Please check Mag and Phos. Pt at risk for refeeding. Recommend daily multivitamin with minerals. Please weigh daily. 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 Active Orders Diet NPO diet (Give Meds) Frequency: Effective Now Number of Occurrences: Until Specified Lab Results Component Value Date NA 137 01/11/2022 K 3.8 01/11/2022 CL 106 01/11/2022 CO2 20 (L) 01/11/2022 BUN 15 01/11/2022 CREATININE 0.46 (L) 01/11/2022 ESTGFR 107 01/11/2022 MAGNESIUM 0.79 01/09/2022 CALCIUM 8.9 01/11/2022 PHOS 3.7 01/07/2022 AST Not Perf 01/07/2022 ALT 70 (H) 01/07/2022 ALKPHOS 39 01/07/2022 BILITOT 0.2 01/07/2022 No results found for: POCGLU Skin Status: Shift Pressure Injury Prevention Occiput: No Injury Thoracic Spine: No Injury Sacral: Existing Injury prior to this admission Ischial - left: No Injury Ischial - right: No Injury Heel - left: No Injury Heel - right: No Injury Elbow - left: No Injury Elbow - right: No Injury Device Sites: O2 sat monitor, high flow nasal cannula strap, ECG Leads, BP Cuff, yuan, IV sites Other Sites: ID band Relevant medications: PRN potassium chloride 10 mEq Last 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 as calculated from the following: Height as of 01/07/22: 167.6 cm (5' 6). Weight as of this encounter: 49.5 kg (109 lb 2 oz). [place] Body Weight: 59kg Usual Body Weight: 115lbs per spouse Tunde on 01/08 Weight loss of ~8% body weight x 3 months based Tunde's recall and current admission weight. Wt Readings from Last 10 Encounters: 01/10/22 49.5 kg (109 lb 2 oz) 01/07/22 46.8 kg (103 lb 2.8 oz) 11/20/21 44.5 kg (98 lb) 03/15/18 56.7 kg (125 lb) 10/16/15 54.9 kg (121 lb) 09/30/15 53.5 kg (118 lb) 07/12/12 55.3 kg (122 lb) 07/11/12 55.3 kg (122 lb) 07/07/12 55.3 kg (122 lb) 07/06/12 55.3 kg (122 lb) Assessment: Estimated needs: Calories: 2598-9172 (30-35 kcal/kg)- for weight gain, start slow given risk for refeeding Protein: 74-99 grams (1.5-2g/kg)- pt with stage 2 pressure wound Nutrition Focused Physical Exam (NFPE): Not performed Pt not appropriate for exam at this time w/ visual temporal wasting and overall cachectic appearance. Nutrition intake and intake history/Interview: 01/11: Pt not appropriate for interview at this time.TF recs pended per consult. 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 01/08:Airplane Inspector spoke to Aziza's spouse (Tunde) on the phone today. He reports aziza has a terrible homediet, eating only bran flakes for breakfast, skipping lunch and eating fried eggs for supper (estimate this provides a maximum of 550 calories daily- ~38% EER). He reports Aziza has always maintained a low body weight and never wanted to weigh more than 120lbs, she never ate a lot but previously ate enough to sustain. Since she had COVID in September, she has difficulty tasting foods and only eats bran flakes, eggs, peas, asparagus, salsa and veggie burgers. Since September her intake has significantly declined and Tunde reports she now weights less than 100lbs, suggesting about 15lb weight loss in the past 3 months. Tunde tells typewriter operator automatic Aziza has had ONS in the past but did not tolerate them. Ifunable to advance to PO diet, tube feed recs outlined above. Protein-calorie Malnutrition: Not enough data to assess though at risk given low BMI, subjective report of weight loss and poor PO intake. (Jazmin, JPEN J Parenteral Enteral Nutr. 2012 December; 36(3): 273-83) Nutrition to continue to follow up while inpatient Jolie Oakes, [employer] Supervisor * Croa Kim S - 01/11/2022 7:52 AM EDT Images from the original note were not included. Inpatient Medicine Progress Note Patient info: Name: Aziza Fields : 1960 PCP: Madhavi Smith APRN PCP phone number: [phone] Date of Admission: 01/06/2022 ( Hospital Day 5 days ) Responsible Attending:Francisco Lynne DO ID: Aziza Fields is a 61 y.o. female with a PMH significant for major depressive disorder, generalized anxiety disorder, and migraines who was admitted to the ICU for suicide attempt and serotonin syndrome. 24 Hour Events/subjective: -Called poison control 01/10-They recommended titrating ativan to effect for rigidity, fever and hyperrflexia. -1 dose ativan 1mg last night This morning: Does not respond to questions, but opens eyes and moans in response. Nods to some questions, but not all. Physical Exam: Last value Range last 24 hrs Temperature Temp: 37.6 ??C (99.68 ??F) Temp: [37 ??C (98.6 ??F)-38.3 ??C (100.94 ??F)] Heart Rate Heart Rate: 80 Heart Rate: [70-96] Blood Pressure BP: 160/71 BP: (114-160)/(63-93) Respiratory Rate Resp: 25 Resp: [15-33] SpO2 SpO2: 95 % SpO2: [89 %-100 %] Intake/Output Summary (Last 24 hours) at 01/11/2022 0928 Last data filed at 01/11/2022 0800 Gross per 24 hour Intake 1257 ml Output 1190 ml Net 67 ml Patient Vitals for the past 168 hrs: Weight 01/10/22 0000 49.5 kg (109 lb 2 oz) 01/08/22 0600 49 kg (108 lb 0.4 oz) 01/06/22 2300 46.8 kg (103 lb 2.8 oz) Admit wt: 46.8 kg -Last BM: 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 Neck: Supple and with no JVD appreciated. HEENT: Pupils equal and reactive to light, extraocular movements intact, no icterus, mucus membranes moist, no legions or sores in the mouth. Cardiovascular: Regular rate and rhythm, normal S1, S2. No murmurs, rubs, or gallops. Pulmonary: Diminished breath sounds with crackles on the right. Abdomen: Soft, non-tender, non distended. No splenomegaly, no hepatomegaly. Extremities: no edema, pedal pulses palpated bilaterally. Rigidity and clonus with petallar reflexes. Skin: Warm, dry, no rashes or lesions. No jaundice, no ecchymosis, no petechiae. Lymphatics: no lymphadenopathy. Neuro: Not responsive. Opens eyes and occasionally nods head in response to questions. *New Medications/Changes in Medications: Scheduled Medications: ??? acetylcysteine 600 mg Inhalation Q4H ??? ampicillin-sulbactam 3 g Intravenous Q6H ??? sodium chloride 4 mL Nebulization Q6H While awake ??? enoxaparin 30 mg Subcutaneous Nightly PRN Medications: acetaminophen, potassium chloride in water OR potassium chloride in water OR potassium chloride in water, LORazepam, ipratropium-albuteroL Laboratory: *CBC: WBC count up. Hbg going up 10 from 9.7 Recent Labs 01/11/22 0110 01/10/22 0322 01/09/22 0158 WBC 11.1* 8.7 8.4 HGB 10.3* 10.0* 9.7* PLATELET 174 116* 141* *Electrolytes: Recent Labs 01/11/22 0110 01/10/22 1405 01/10/22 0322 01/09/22 1340 01/09/22 0158 NA 137 -- 139 -- 139 K 3.8 4.3 3.7 < > 3.2* CL 106 -- 106 -- 104 CO2 20* -- 22 -- 24 BUN 15 -- 13 -- 13 CREATININE 0.46* -- 0.50* -- 0.51* GLUCOSE 93 -- 141 -- 116 < > = values in this interval not displayed. Recent Labs 01/11/22 0110 01/10/22 0322 01/09/22 0158 01/08/22 0142 01/07/22 1410 01/07/22 0019 CALCIUM 8.9 8.3* 8.4* < > 8.6 8.2* MAGNESIUM -- -- 0.79 -- 0.91 0.64* PHOS -- -- -- -- 3.7 3.0 < > = values in this interval not displayed. CK (01/10): 536 from 1,074 yesterday Microbiology: *New Micro: Imaging/Studies: Chest Xray: Increased confluence of multifocal predominantly lower lobe bilateral pulmonary opacities, compatible with aspiration pneumonitis, with trace right and small left pleural effusions -Normal MRI -EEG without epileptiform activity. Assessment and Plan: Aziza Fields is a 61 y.o. female with a PMH significant for major depressive disorder, generalized anxiety disorder, and migraines who was admitted to the ICU for suicideattempt and serotonin syndrome. AMS appears to be somewhat improving but we plan to get an MRI to evaluated for hypoxic injury. Also plan to start tube feeds today. Plan: #Altered mental status: Most likely secondary to toxic ingestion of sedating medications. Elevated CK on 01/09 concerning for serotonin syndrome or NMS. 01/11- CK 536 from 1,074 yesterday. MRI was negative but low threshold for re-imaging to r/u hypoxic brain injury. Fever is improving. According to poison control lamotrigine is long acting and she had the rx for many sedating drugs. Benzos remain the best option. -Continue Ativan 1mg q6h PRN -MRI for prognostication and etiology of AMS #NPO: Currently NPO not able to take in food. -Consult nutrition -Dobbhoff tube ?? #Aspiration Pneumonia: Patient required 60% high flow 01/09. 01/11 now down to 40% high flow, 50L/minand O2 sat at 96%. Also right lobe collapse due to mucous plugging. Patient improved when turned toleft side. WBC count is up 11.1 from 8.7. Could be due to stress or infection. -Continue Unasyn 3g 5/20-01/12 (5 day course for aspiration pnemonia) -Position on left side when possible, elevate head of bed #Major depressive disorder: patient has a history of MDD and OFELIA with mutiple suicide attempts. Code status is unclear as AD was signed last month in the potential context of depression, so psych consulted and she is now full code. - 1:1 sitter -??holding??home meds: atarax, vilazodone, zolpidem, buspirone, lamictal #Anemia: MCV suggest macrocytic. Low Hbg partially due to bleed from bilateral wrist lacerations. Hgb stable and slowly uptrending. - Continue to monitor - no signs of active bleeding -Maintain transfusion threshold of 7. ?? #Bilateral wrist lacerations: s/p sutures - Surgery repaired - on unasyn as above - tetanus 01/07/22 - No active bleeding, continue to monitor. ?? #Cspine precautions - Precautions per trauma surgery: assessment limited by encephalopathy ?? #Other - DVT ppx: lovenox - GI ppx: H2B - Diet: NPO (pending improvement in mentation) - Dispo: pending clinical course - DPOA: Tunde IrvinLeslye Kim M3 Medical Student * Francis Linton MD - 01/11/2022 7:09 AM EDT Images from the original note were not included. Inpatient Hospital Medicine Progress Note Patient ID: Name: Aziza Fields : 1960 PCP: Madhavi Smith APRN PCP phone number: [phone] Date of Admission: 01/06/2022 ( Hospital Day 5 days ) Service: Medicine, Blue Team Responsible Attending:Francisco Lynne DO ID: Aziza Fields??is a??61 y.o.??female with PMH of MDD, OFELIA, migraines who was admitted tot MICU for overdose in attempted suicide req intubation for airway protection, now HDS transferred to . ?? 24 H/Subjective: - NAEON - CK downtrending - This AM patient's mental status appears improved, able to shake head purposefully (denies pain, reports nausea) Vitals: Last value Range last 24 hrs Temperature Temp: 37.6 ??C (99.68 ??F) Temp: [37 ??C (98.6 ??F)-38.3 ??C (100.94 ??F)] Heart Rate Heart Rate: 84 Heart Rate: [70-96] Blood Pressure BP: 146/80 BP: (114-157)/(63-93) Respiratory Rate Resp: 29 Resp: [15-33] SpO2 SpO2: 95 % SpO2: [89 %-100 %] Ins/Outs: Intake/Output Summary (Last 24 hours) at 01/11/2022 0709 Last data filed at 01/11/2022 0556 Gross per 24 hour Intake 1626 ml Output 1235 ml Net 391 ml Patient Vitals for the past 168 hrs: Weight 01/10/22 0000 49.5 kg (109 lb 2 oz) 01/08/22 0600 49 kg (108 lb 0.4 oz) 01/06/22 2300 46.8 kg (103 lb 2.8 oz) Admit wt: 46.8 kg Physical Exam Gen: in bed in NAD. C-collar in place HEENT: sclera anicteric, conjunctiva nl ?? CV: RRR, no murmurs/rubs/gallops Resp: ??CTAB, no crackles/wheezes/ronchi, normal work of breathing Abd: normal bowel sounds, soft, non-tender to palpation, no guarding Ext: 2+ distal pulses, no pedal edema Neuro: Rigid.??2-3 myoclonic??jerks in lower extremities. Clonus observed in BL patellar reflex. Opens eyes spontaneously and to voice, nods/shakes head appropriately for most questions Skin: b/l wrist lacerations s/p sutures. Labs: Recent Labs 01/11/22 0110 01/10/22 0322 01/09/22 0158 01/08/22 0142 01/07/22 0019 WBC 11.1* 8.7 8.4 6.9 6.9 HGB 10.3* 10.0* 9.7* 9.9* 10.7* PLATELET 174 116* 141* 145 195 Recent Labs 01/11/22 0110 01/10/22 1405 01/10/22 0322 01/09/22 1340 01/09/22 0158 01/08/22 0142 01/07/22 1410 01/07/22 0019 NA 137 -- 139 -- 139 < > 138 140 K 3.8 4.3 3.7 < > 3.2* < > 4.3 4.3 CL 106 -- 106 -- 104 < > 105 107 CO2 20* -- 22 -- 24 < > 20* 16* BUN 15 -- 13 -- 13 < > 13 12 CREATININE 0.46* -- 0.50* -- 0.51* < > 0.74 0.78 GLUCOSE 93 -- 141 -- 116 < > 125 90 CALCIUM 8.9 -- 8.3* -- 8.4* < > 8.6 8.2* MAGNESIUM -- -- -- -- 0.79 -- 0.91 0.64* PHOS -- -- -- -- -- -- 3.7 3.0 < > = values in this interval not displayed. Recent Labs 01/07/22 0019 PROT 5.3* ALBUMIN 3.4 BILITOT 0.2 AST Not Perf ALT 70* ALKPHOS 39 No results for input(s): INR, PT, PTT in the last 72 hours. Recent Labs 01/11/22 0110 01/10/22 0322 01/09/22 0158 CK 536* 1,074* 1,682* Microbiology: Microbiology Results (Last 30 days) Procedure Component Value Units Date/Time COVID-19 PCR [[id number]] Collected: 01/09/222054 Lab Status: Final result Specimen: Nasopharyngeal Swab Updated: 01/10/221441 SARS-CoV-2 RNA Not Detected Comment: This result should be interpreted in combination with the clinical observations, patient history and epidemiological information in making a final diagnosis. For testing of asymptomatic individuals, assay performance characteristics and clinical utility have not been evaluated. Testing for SARS-CoV-2 (Severe acute respiratory syndrome coronavirus 2, formerly known as 2019 novel coronavirus or 2019-nCoV) to aid in the diagnosis of COVID-19 is performed using the [employer] m SARS-CoV-2 Assay as authorized by the FDA Emergency Use Authorization (EUA). This EUA assay is intended for In-vitro Diagnostic (IVD) use with respiratory specimens such as nasopharyngeal swabs collected from individuals during the acute phase of infection. This assay is performed based on the instructions for use provided by [employer] and additional guidance provided by [facility] and FDA. Testing is performed in the [facility] Laboratory within the Department of Pathology and Laboratory Medicine at [facility], certified under the Clinical Laboratory Improvement Amendments of 1988 (CLIA), 42 U.S.C. 263a, to perform high complexity tests. Assay performance has been verified according to clinical laboratory regulatory requirements for use with specimens collected from individuals suspected of COVID-19. Test results are provided above. A result of Not Detected indicates that the viral RNA target is not present above the limit of detection, but does not preclude SARS-CoV-2 infection. False negative results may occur if a specimen is improperly collected, transported or handled; if amplification inhibitors are present; or if inadequate numbers of viral particles are present in the specimen. When a diagnostic test is negative, the possibility of a false negative result should be considered in the context of a patient's recent exposures and the presence of clinical signs and symptoms consistent with COVID-19. A result of Detected indicates that RNA from SARS-CoV-2 was detected and the patient is infected. As required or requested by public health authorities, positive specimens may be sent for additional testing. Positive and negative predictive values for this test are highly dependent on disease prevalence. A result of Invalid indicates that neither the viral RNA targets nor the internal control target was detected. An invalid result suggests the presence of inhibitors. Recollection and re-testing is recommended in the case of an invalid result. CDC COVID-19 criteria for testing on human specimens and clinical management guidance information are available at the CDC Coronavirus Disease 2019 (COVID-19) webpage under Information for Healthcare Professionals (https://www.cdc.gov/coronavirus/2019-ncov/hcp/index.html) Additional information about this and other EUA tests can be found in provider and patient fact sheets at the following FDA website: https://www.fda.gov/medical-devices/wllwskqikqh-xpahkky-1767-htutg-82-njpvetofp- amf-odzydjjixhzmst-zflvlul-devices/oweyj-rhlxhraaypf-jedu SARS-Cov-2 RNA Source [employer]ARY ASSIST[employer] Swab Blood culture [[id number]] Collected: 01/07/22 0019 Lab Status: Preliminary result Specimen: Blood Updated: 01/11/22 0701 Blood Culture No growth at 4 days. COVID-19 PCR [[id number]] Collected: 01/06/22 2359 Lab Status: Final result Specimen: Nasopharyngeal Swab Updated: 01/07/22 0324 SARS-CoV-2 RNA PCR Not Detected Comment: This result should be interpreted in combination with the clinical observations, patient history and epidemiological information. For testing of asymptomatic individuals, assay performance characteristics and clinical utility have not been evaluated. Testing for SARS-CoV-2 (Severe acute respiratory syndrome coronavirus 2, formerly known as 2019 novel coronavirus or 2019-nCoV) to aid in the diagnosis of COVID-19 is performed using the [employer] COVID-19 Direct Assay by [employer] as authorized by the FDA issued Emergency Use Authorization (EUA). This assay is intended for In-vitro Diagnostic (IVD) use with nasopharyngeal swabs collected from individuals meeting the CDC criteria for testing. The assay is performed based on the instructions for use and additional guidance provided by the FDA. Testing is performed in the Microbiology Laboratory within the Department of Pathology and Laboratory Medicine at [facility], certified under the Clinical Laboratory Improvement Amendments of 1988 (CLIA), 42 U.S.C. section 263a, to perform high complexity tests. Assay performance has been verified according to clinical laboratory regulatory requirements. Test results are provided above. A result of Not Detected indicates that the viral RNA target is not present but does not preclude SARS-CoV-2 infection. False negative results may occur if a specimen is improperly collected, transported or handled; if amplification inhibitors are present; or if inadequate numbers of viral particles are present in the specimen. A result of Detected suggests a current or recent infection and the patient is presumed to be infected. Positive and negative predictive values for this test are highly dependent on disease prevalence. A result of Invalid indicates the inability to conclusively determine the presence or absence of SARS-CoV-2 RNA in the sample which can be due to a variety of factors. Recollection is recommended in the case of an invalid result. CDC COVID-19 criteria for testing on human specimens and clinical management guidance information are available at the CDC Coronavirus Disease 2019 (COVID-19) webpage under Information for Healthcare Professionals (https://www.cdc.gov/coronavirus/2019-ncov/hcp/index.html). Additional information about this and other EUA tests can be found in provider and patient fact sheets at the following FDA website: https://www.fda.gov/medical-devices/sprlarfqebg-ozqfnga-1916-zhqzg-22-tisodphhu- ukd-cwebxjvtmeaywr-ictbzih-devices/ydjuh-bhclivaormd-ujsk SARS-CoV-2 Source MUSIC LIBRARY ASSISTANT Swab Imaging: Results for orders placed or performed during the hospital encounter of 01/06/22 XR Chest One View (Exam End: 01/07/2022 1:35 AM) Impression * Endotracheal tube 10 cm above the emmanuel. Please advance. * Enteric tube courses below the diaphragm and beyond the ykcjf-nf-hzhn. * Minimal central pulmonary vascular congestion. Thank you for letting us participate in the care of this patient. If you are a health care provider and have any questions regarding this report, please contact the number below. For patients who have questions please contact the health plant health care technician that requested your imaging first. Electronically signed by: Bob Escalante MD, [facility] ([phone]), at 01/07/2022 2:06 AM XR Abdomen 1 view (Generic) (Exam End: 01/07/2022 1:35 AM) Impression Enteric tube terminates in the gastric antrum. Thank you for letting us participate in the care of this patient. If you are a health care provider and have any questions regarding this report, please contact the number below. For patients who have questions please contact the health plant health care technician that requested your imaging first. Electronically signed by: Bob Escalante MD, [facility] ([phone]), at 01/07/2022 2:07 AM XR Pelvis (Generic) (Exam End: 01/07/2022 7:10 AM) Impression No acute fracture or dislocation. Thank you for letting us participate in the care of this patient. If you are a health care provider and have any questions regarding this report, please contact the number below. For patients who have questions please contact the health plant health care technician that requested your imaging first. Electronically signed by: Bob Escalante MD, [facility] ([phone]), at 01/07/2022 8:[address] Head wo Contrast (Generic) (Exam End: 01/07/2022 5:07 AM) Impression No acute intracranial pathology. Preliminary report signed by: Andrea Machuca at 01/07/2022 5:16 AM I have personally reviewed the image(s) and the resident's interpretation and agree with the findings, Bob Escalante MD at 01/07/2022 5:23 AM Thank you for letting us participate in the care of this patient. If you are a health care provider and have any questions regarding this report, please contact the number below. For patients who have questions please contact the health plant health care technician that requested your imaging first. Electronically signed by: Bob Escalante MD, [facility] ([phone]), at 01/07/2022 5:[address] Cervical Spine wo Contrast (Exam End: 01/07/2022 5:07 AM) Impression * No acute fracture or dislocation. * Minimal C3-C4, C4-C5 and C5-C6 retrolistheses. * Multilevel degenerative changes as detailed above. Preliminary report signed by: Andrea Machuca at 01/07/2022 5:23 AM I have personally reviewed the image(s) and the resident's interpretation and agree with the findings, Bob Escalante MD at 01/07/2022 5:28 AM Thank you for letting us participate in the care of this patient. If you are a health care provider and have any questions regarding this report, please contact the number below. For patients who have questions please contact the health plant health care technician that requested your imaging first. Electronically signed by: Bob Escalante MD, [facility] ([phone]), at 01/07/2022 5:28 AM MRI Brain wo Contrast (Exam End: 01/07/2022 4:18 PM) Impression No evidence for acute process. Thank you for letting us participate in the care of this patient. If you are a health care provider and have any questions regarding this report, please contact the number below. For patients who have questions please contact the health plant health care technician that requested your imaging first. Chest One View (Exam End: 01/08/2022 6:53 AM) Impression New bibasilar patchy airspace opacities with total opacification of right middle lobe acute represent aspiration pneumonitis. Thank you for letting us participate in the care of this patient. If you are a health care provider and have any questions regarding this report, please contact the number below. For patients who have questions please contact the health plant health care technician that requested your imaging first. Electronically signed by: Bob Escalante MD, [facility] ([phone]), at 01/08/2022 6:57 AM XR Chest One View (Exam End: 01/09/2022 9:24 PM) Impression Increased confluence of multifocal predominantly lower lobe bilateral pulmonary opacities, compatible with aspiration pneumonitis, with trace right and small left pleural effusions. I have personally reviewed the image(s) and the resident's interpretation and agree with the findings, Lorin Ruelas MD at 01/09/2022 11:00 PM Thank you for letting us participate in the care of this patient. If you are a health care provider and have any questions regarding this report, please contact the number below. For patients who have questions please contact the health plant health care technician that requested your imaging first. Electronically signed by: Lorin Ruelas MD, [facility] ([phone]), at 01/09/2022 11:00 PM Inpatient Medications: Scheduled Meds: ??? acetylcysteine 600 mg Inhalation Q4H ??? ampicillin-sulbactam 3 g Intravenous Q6H ??? sodium chloride 4 mL Nebulization Q6H While awake ??? enoxaparin 30 mg Subcutaneous Nightly Continuous Infusions: PRN Meds:.acetaminophen, potassium chloride in water OR potassium chloride in water OR potassium chloride in water, LORazepam, ipratropium-albuteroL Assessment/Plan: Aziza Fields??is a??61 y.o.??female with PMH of MDD, OFELIA, migraines who was admitted to theMICU for overdose in attempted suicide req intubation for airway protection, now HDS transferred to. ?? Patient remains encephalopathic and does not answer questions or follow commands. She has reportedly had agitation responsive to benzodiazepenes. Given clonus and tetany as well as hallucinations andagitation with overdose on seretonergic drugs, the leading theory is seretonin syndrome despite lack of tachycardia, HTN, hyperthermia, diaphoresis.??She has been given prn benzos so far. However, also note that w/ an uptrending CK, NMS should be on the ddx as well brent given her rigidity. Tx would be the same as supportive and w/ benzos. Initial Normal MRI and EEG without any epileptiform activity but did note moderate global cerebral dysfunction ?? Respiratory status is stable - RML collapse previously likely due to mucus plugging / aspiration due to poor mental status. Responding to aggressive pulmonary hygiene and is now fluctuating ~40% HFNC. Brief episode requiring 100% high flow nasal cannula which resolved with aggressive pulmonary hygiene consistent with mucous plugging. We will continue to closely monitor her respiratory status withlow threshold to escalate to the ICU. C/w unasyn for 5d total course for asp PNA. ?? Patient will need 1:1 sitting and psychiatric management due to suicide attempt. Note that the pt'scode status was recorded as DNR/DNI and upon conversation w/ her /DPOA, he notes that this was based on an AD that the pt filled out approximately 1 mo ago. He notes that they had prior discussions re this but that it's unclear if she was in a depressive state of mind at the time of this AD.Psychiatry engaged who recommended maintaining patient full code as it is uncertain whether or not her DNR status was affected by her suicidality. Psych to reassess once her mentation improves to further clarify this. Question regarding DPOA status as cited by social work, please see their note fordetailed assessment of the situation. Though her mental status appears to be marginally improved, she still remains markedly altered. As such obtaining brain MRI to further evaluate for possible hypoxic brain injury that may have been missed initial evaluation (possibly due to temporality of scan versus insult). Patient obtaining no nutrition given her altered status, as such inserting DHT for tube feeds today. Fever now much improved following initiation of Tylenol as needed. ?? Plan: #AMS 2/2 toxic ingestion predominantly sedating medications and ?serotonin syndrome vs NMS - Ativan 0.5mg q6h prn agitation/nausea - APAP 650 q6h prn for pain/fever - MRI brain 01/07 negative - MRI cesar 01/11 pending ?? #MDD, OFELIA, h/o multiple suicide attempts - 1:1 sitter -??holding??home meds:??on ativan, atarax, vilazodone, zolpidem, buspirone, lamictal - psych consult brent re code status (see assessment for details) ?? #Right middle lobe collapse likely mucus plugging #Possible aspiration pneumonia - Unasyn 3g 01/08-01/12 - Position on left side when possible, elevate head of bed - reevaluate for lasix ?? #Bilateral wrist lacerations: s/p sutures - Surgery repaired - on unasyn as above - tetanus 01/07/22 - No active bleeding, continue to monitor ?? #Cspine precautions - Precautions per trauma surgery: assessment limited by encephalopathy ?? #macrocytic anemia - Continue to monitor - no signs of active bleeding ?? #Other - DVT ppx: lovenox - GI ppx: H2B - Diet: NPO (pending improvement in mentation) - Dispo: pending clinical course Francis Linton MD PGY-1, Internal Medicine Green Team (Pager [phone]) 01/11/22 Associated attestation - Francisco Lynne DO - 01/11/2022 9:34 PM EDT Attending Attestation Please see Dr. Linton's note for details of the patient history of presentation and data. I have discussed, reviewed and agree with the documented History, Physical findings, Assessment and Plan of care. I have examined the patient myself and personally reviewed all studies. In addition, I certify thatI am a [facility] credentialed attending provider with admitting privileges and that the patient meets or has met medical necessity to require an inpatient IPI level of care meeting a minimum of two midnights or is on the [facility] inpatient only procedure list (status C) due to: monitoring of fluid status given an inability to regulate fluid balance and the need for administration or restriction of fluids, acute respiratory compromise and/or hypoxia requiring assessment every 4 hours and the ability to respond immediately to the patient's need and severe encephalopathy 59 yo F w/ PMH of severe MDD (multiple prior suicide attempts, prior ECT) presented to ED on 01/06 after polysubstance OD w/ self-inflicted b/l wrist lacerations initially admitted to ICU given need for intubation for airway protection but now medically stable for transfer to on HD2. Poison control was called given presentation and in setting of hyperreflexia, hyperpyrexia, rigidity, prolonged encephalopathy with episodes of agitation smptomatic control with Ativan for suspected serotonin syndrome was recommended. CK peaked at 1,682 making NMS less likely. She is s/p unremarkable Brain MRI,spot EEG. Still markedly rigid, with hyperreflexia and minimal improvement in encephalopathy (nods to her name, withdrawals to pain,still unable to follow simple commands). We will be aggressive with pulmonaryhygiene (RT assistance appreciated) and continue Unasyn for now. Will give full medical support now, despite prior DNR/DNI, as this was made in context of presumed severe depression last month. Francisco Lynne, [facility] 01/11/2022 9:29 PM * Radha Bose RCP - 01/11/2022 4:37 AM EDT Respiratory Therapy Heated Humidified High Flow INDICATIONS: High O2 requirement HIGH FLOW SETTINGS: Interface: High flow mask Flow: 50 L/min FiO2: 40 % VITAL SIGNS: HR: 84 RR: 27 SpO2: 91 % SKIN ASSESSMENT: Nares Assessment WDL: WDL CURRENT MEDICATIONS: , Nebulized Medications: n Acetylcystine BREATH SOUNDS: Coarse ASSESSMENT: Received patient on HFM 50L/45%. Fio2 weaned to 40%. Scheduled mucuomyst given overnight. Spo2 90-96% overnight. Will continue to wean as tolerated. Radha Bose RCP * Francis Linton MD - 01/10/2022 7:51 AM EDT Images from the original note were not included. Inpatient Hospital Medicine Progress Note Patient ID: Name: Aziza Fields : 1960 PCP: Madhavi Smith APRN PCP phone number: [phone] Date of Admission: 01/06/2022 ( Hospital Day 4 days ) Service: Medicine, Blue Team Responsible Attending:Francisco Lynne, DO ID: Aziza Fields??is a??61 y.o.??female with PMH of MDD, OFELIA, migraines who was admitted tot MICU for overdose in attempted suicide req intubation for airway protection, now HDS transferred to . ?? 24 H/Subjective: - Transferred to yesterday - Overnight > 1999: patient had increasing O2 requirement up to 100% FiO2, placed on left side, RT-mucomist,got chest xray which showed increasing consolidation. Sats improved. - This AM patient appears consistent with previously stated baseline, does not follow commands, opens eyes to voice Vitals: Last value Range last 24 hrs Temperature Temp: (!) 38.2 ??C (100.76 ??F) Temp: [37.4 ??C (99.32 ??F)-38.3 ??C (100.94 ??F)] Heart Rate Heart Rate: 82 Heart Rate: [74-102] Blood Pressure BP: 143/71 BP: (98-150)/(39-95) Respiratory Rate Resp: (!) 31 Resp: [18-32] SpO2 SpO2: 95 % SpO2: [85 %-97 %] Ins/Outs: Intake/Output Summary (Last 24 hours) at 01/10/2022 0752 Last data filed at 01/10/2022 0600 Gross per 24 hour Intake 3712 ml Output 1170 ml Net 2542 ml Patient Vitals for the past 168 hrs: Weight 01/10/22 0000 49.5 kg (109 lb 2 oz) 01/08/22 0600 49 kg (108 lb 0.4 oz) 01/06/22 2300 46.8 kg (103 lb 2.8 oz) Admit wt: 46.8 kg Physical Exam Gen: in bed in NAD. C-collar in place HEENT: sclera anicteric, conjunctiva nl ?? CV: RRR, no murmurs/rubs/gallops Resp: ??CTAB, no crackles/wheezes/ronchi, normal work of breathing Abd: normal bowel sounds, soft, non-tender to palpation, no guarding Ext: 2+ distal pulses, no pedal edema Neuro: Rigid.??2-3 myoclonic??jerks in lower extremities. Clonus observed in BL patellar reflex. Opens eyes spontaneously and to voice but does not follow commands or answer questions Skin: b/l wrist lacerations s/p sutures. Labs: Recent Labs 01/10/2232101/09/22 01501/08/22 01401/07/22 001 WBC 8.7 8.4 6.9 6.9 HGB 10.0* 9.7* 9.9* 10.7* PLATELET 116* 141* 145 195 Recent Labs 01/10/2232101/09/22 1340 01/09/22 0158 01/08/22 01401/07/22 1410 01/07/22 0019 NA 139 -- 139 140 138 140 K 3.7 3.9 3.2* 4.5 4.3 4.3 CL 106 -- 104 106 105 107 CO2 22 -- 24 22 20* 16* BUN 13 -- 13 12 13 12 CREATININE 0.50* -- 0.51* 0.57* 0.74 0.78 GLUCOSE 141 -- 116 102 125 90 CALCIUM 8.3* -- 8.4* 8.5 8.6 8.2* MAGNESIUM -- -- 0.79 -- 0.91 0.64* PHOS -- -- -- -- 3.7 3.0 Recent Labs 01/07/22 001 PROT 5.3* ALBUMIN 3.4 BILITOT 0.2 AST Not Perf ALT 70* ALKPHOS 39 No results for input(s): INR, PT, PTT in the last 72 hours. Recent Labs 01/10/2232101/09/2215701/08/22 1105 CK 1,074* 1,682* 1,275* Microbiology: Microbiology Results (Last 30 days) Procedure Component Value Units Date/Time Blood culture [[id number]] Collected: 01/07/2218 Lab Status: Preliminary result Specimen: Blood Updated: 01/10/22 0702 Blood Culture No growth at 3 days. COVID-19 PCR [[id number]] Collected: 01/06/22 2359 Lab Status: Final result Specimen: Nasopharyngeal Swab Updated: 01/07/22 0324 SARS-CoV-2 RNA PCR Not Detected Comment: This result should be interpreted in combination with the clinical observations, patient history and epidemiological information. For testing of asymptomatic individuals, assay performance characteristics and clinical utility have not been evaluated. Testing for SARS-CoV-2 (Severe acute respiratory syndrome coronavirus 2, formerly known as 2019 novel coronavirus or 2019-nCoV) to aid in the diagnosis of COVID-19 is performed using the [employer] COVID-19 Direct Assay by [employer] as authorized by the FDA issued Emergency Use Authorization (EUA). This assay is intended for In-vitro Diagnostic (IVD) use with nasopharyngeal swabs collected from individuals meeting the CDC criteria for testing. The assay is performed based on the instructions for use and additional guidance provided by the FDA. Testing is performed in the Microbiology Laboratory within the Department of Pathology and Laboratory Medicine at [facility], certified under the Clinical Laboratory Improvement Amendments of 1988 (CLIA), 42 U.S.C. section 263a, to perform high complexity tests. Assay performance has been verified according to clinical laboratory regulatory requirements. Test results are provided above. A result of Not Detected indicates that the viral RNA target is not present but does not preclude SARS-CoV-2 infection. False negative results may occur if a specimen is improperly collected, transported or handled; if amplification inhibitors are present; or if inadequate numbers of viral particles are present in the specimen. A result of Detected suggests a current or recent infection and the patient is presumed to be infected. Positive and negative predictive values for this test are highly dependent on disease prevalence. A result of Invalid indicates the inability to conclusively determine the presence or absence of SARS-CoV-2 RNA in the sample which can be due to a variety of factors. Recollection is recommended in the case of an invalid result. CDC COVID-19 criteria for testing on human specimens and clinical management guidance information are available at the CDC Coronavirus Disease 2019 (COVID-19) webpage under Information for Healthcare Professionals (https://www.cdc.gov/coronavirus/2019-ncov/hcp/index.html). Additional information about this and other EUA tests can be found in provider and patient fact sheets at the following FDA website: https://www.fda.gov/medical-devices/ntkgmbmofgv-hyblxml-6158-qwtue-68-yroahkybu- vzi-kfihjzvgwvsvyk-zzgrxyr-devices/nyvfn-wczjghcsrel-ptrw SARS-CoV-2 Source [employer] LIBRARY ASSIST[employer] Swab Imaging: Results for orders placed or performed during the hospital encounter of 01/06/22 XR Chest One View (Exam End: 01/07/2022 1:35 AM) Impression * Endotracheal tube 10 cm above the emmanuel. Please advance. * Enteric tube courses below the diaphragm and beyond the [id number]. * Minimal central pulmonary vascular congestion. Thank you for letting us participate in the care of this patient. If you are a health care provider and have any questions regarding this report, please contact the number below. For patients who have questions please contact the health plant health care technician that requested your imaging first. Electronically signed by: Bob Escalante MD, [facility] ([phone]), at 01/07/2022 2:06 AM XR Abdomen 1 view (Generic) (Exam End: 01/07/2022 1:35 AM) Impression Enteric tube terminates in the gastric antrum. Thank you for letting us participate in the care of this patient. If you are a health care provider and have any questions regarding this report, please contact the number below. For patients who have questions please contact the health plant health care technician that requested your imaging first. Electronically signed by: Bob Escalante MD, [facility] ([phone]), at 01/07/2022 2:07 AM XR Pelvis (Generic) (Exam End: 01/07/2022 7:10 AM) Impression No acute fracture or dislocation. Thank you for letting us participate in the care of this patient. If you are a health care provider and have any questions regarding this report, please contact the number below. For patients who have questions please contact the health plant health care technician that requested your imaging first. Electronically signed by: Bob Escalante MD, [facility] ([phone]), at 01/07/2022 8:[address] Head wo Contrast (Generic) (Exam End: 01/07/2022 5:07 AM) Impression No acute intracranial pathology. Preliminary report signed by: Andrea Machuca at 01/07/2022 5:16 AM I have personally reviewed the image(s) and the resident's interpretation and agree with the findings, Bob Escalante MD at 01/07/2022 5:23 AM Thank you for letting us participate in the care of this patient. If you are a health care provider and have any questions regarding this report, please contact the number below. For patients who have questions please contact the health plant health care technician that requested your imaging first. Electronically signed by: Bob Escalante MD, [facility] ([phone]), at 01/07/2022 5:[address] Cervical Spine wo Contrast (Exam End: 01/07/2022 5:07 AM) Impression * No acute fracture or dislocation. * Minimal C3-C4, C4-C5 and C5-C6 retrolistheses. * Multilevel degenerative changes as detailed above. Preliminary report signed by: Andrea Machuca at 01/07/2022 5:23 AM I have personally reviewed the image(s) and the resident's interpretation and agree with the findings, Bob Escalante MD at 01/07/2022 5:28 AM Thank you for letting us participate in the care of this patient. If you are a health care provider and have any questions regarding this report, please contact the number below. For patients who have questions please contact the health plant health care technician that requested your imaging first. Electronically signed by: Bob Escalante MD, [facility] ([phone]), at 01/07/2022 5:28 AM MRI Brain wo Contrast (Exam End: 01/07/2022 4:18 PM) Impression No evidence for acute process. Thank you for letting us participate in the care of this patient. If you are a health care provider and have any questions regarding this report, please contact the number below. For patients who have questions please contact the health plant health care technician that requested your imaging first. Chest One View (Exam End: 01/08/2022 6:53 AM) Impression New bibasilar patchy airspace opacities with total opacification of right middle lobe acute represent aspiration pneumonitis. Thank you for letting us participate in the care of this patient. If you are a health care provider and have any questions regarding this report, please contact the number below. For patients who have questions please contact the health plant health care technician that requested your imaging first. Electronically signed by: Bob Escalante MD, [facility] ([phone]), at 01/08/2022 6:57 AM XR Chest One View (Exam End: 01/09/2022 9:24 PM) Impression Increased confluence of multifocal predominantly lower lobe bilateral pulmonary opacities, compatible with aspiration pneumonitis, with trace right and small left pleural effusions. I have personally reviewed the image(s) and the resident's interpretation and agree with the findings, Lorin Ruelas MD at 01/09/2022 11:00 PM Thank you for letting us participate in the care of this patient. If you are a health care provider and have any questions regarding this report, please contact the number below. For patients who have questions please contact the health plant health care technician that requested your imaging first. Electronically signed by: Lorin Ruelas MD, [facility] ([phone]), at 01/09/2022 11:00 PM Inpatient Medications: Scheduled Meds: ??? acetylcysteine 600 mg Inhalation Q4H ??? ampicillin-sulbactam 3 g Intravenous Q6H ??? sodium chloride 4 mL Nebulization Q6H While awake ??? enoxaparin 30 mg Subcutaneous Nightly Continuous Infusions: ??? dextrose 5% lactated ringers 125 mL/hr (01/10/22 0258) PRN Meds:.potassium chloride in water OR potassium chloride in water OR potassium chloride in water, LORazepam, ipratropium-albuteroL Assessment/Plan: Aziza Spain-Humberto??is a??61 y.o.??female with PMH of MDD, OFELIA, migraines who was admitted to theMICU for overdose in attempted suicide req intubation for airway protection, now HDS transferred to. ?? Patient remains encephalopathic and does not answer questions or follow commands. She has reportedly had agitation responsive to benzodiazepenes. Given clonus and tetany as well as hallucinations andagitation with overdose on seretonergic drugs, the leading theory is seretonin syndrome despite lack of tachycardia, HTN, hyperthermia, diaphoresis.??She has been given prn benzos so far. However, also note that w/ an uptrending CK, NMS should be on the ddx as well brent given her rigidity. Tx would be the same as supportive and w/ benzos. Unlikely stroke/seizure given normal MRI and EEG without any epileptiform activity but did note moderate global cerebral dysfunction. If her mentation does notimprove, will need to further eval w/ 24h EEG and engage neurology. ?? Respiratory status is stable - RML collapse previously likely due to mucus plugging / aspiration due to poor mental status. Responding to aggressive pulmonary hygiene and is now fluctuating between 50-60% HFNC. Brief episode requiring 100% high flow nasal cannula which resolved with aggressive pulmonary hygiene consistent with mucous plugging. We will continue to closely monitor her respiratory status with low threshold to escalate to the ICU. C/w unasyn for 5d total course for asp PNA. ?? Patient will need 1:1 sitting and psychiatric management due to suicide attempt. Note that the pt'scode status is recorded as DNR/DNI and upon conversation w/ her /DPOA, he notes that this was based on an AD that the pt filled out approximately 1 mo ago. He notes that they had prior discussions re this but that it's unclear if she was in a depressive state of mind at the time of this AD. Psychiatry engaged who recommended maintaining patient full code as it is uncertain whether or not her DNR status was affected by her suicidality. Psych to reassess once her mentation improves to further clarify this. Question regarding DPOA status as cited by social work, please see their note for d etailed assessment of the situation. ?? Plan: #AMS 2/2 toxic ingestion predominantly sedating medications and ?serotonin syndrome vs NMS - Ativan 0.5mg q6h prn agitation - MRI brain 01/07 negative - low threshold to re-image (?hypoxic brain injury) and engage Neuro and poison control if not improving ?? #MDD, OFELIA, h/o multiple suicide attempts - 1:1 sitter -??holding??home meds:??on ativan, atarax, vilazodone, zolpidem, buspirone, lamictal - psych consult brent re code status (see assessment for details) ?? #Right middle lobe collapse likely mucus plugging #Possible aspiration pneumonia - Unasyn 3g 01/08-01/12 - Position on left side when possible, elevate head of bed - reevaluate for lasix ?? #Bilateral wrist lacerations: s/p sutures - Surgery repaired - on unasyn as above - tetanus 01/07/22 - No active bleeding, continue to monitor ?? #Cspine precautions - Precautions per trauma surgery: assessment limited by encephalopathy ?? #macrocytic anemia - Continue to monitor - no signs of active bleeding ?? #Other - DVT ppx: lovenox - GI ppx: H2B - Diet: NPO (pending improvement in mentation) - Dispo: pending clinical course Francis Linton MD PGY-1, Internal Medicine Green Team (Pager [phone]) 01/10/22 Associated attestation - Francisco Lynne DO - 01/10/2022 2:30 PM EDT Attending Attestation Please see Dr. Linton's note for details of the patient history of presentation and data. I have discussed, reviewed and agree with the documented History, Physical findings, Assessment and Plan of care. I have examined the patient myself and personally reviewed all studies. In addition, I certify thatI am a [facility] credentialed attending provider with admitting privileges and that the patient meets or has met medical necessity to require an inpatient IPI level of care meeting a minimum of two midnights or is on the CMS inpatient only procedure list (status C) due to: monitoring of fluid status given an inability to regulate fluid balance and the need for administration or restriction of fluids, acute respiratory compromise and/or hypoxia requiring assessment every 4 hours and the ability to respond immediately to the patient's need and severe encephalopathy 59 yo F w/ PMH of MDD (multiple prior suicide attempts) presented to ED on 01/06 after polysubstanceOD w/ self-inflicted b/l wrist lacerations initially admitted to ICU given need for intubation for airway protection but now medically stable for transfer to on HD2. Poison control was called given presentation and in setting of hyperreflexia, hyperpyrexia, rigidity, prolonged encephalopathy with episodes of agitation smptomatic control with Ativan for suspected serotonin syndrome was recommended. CK peaked at 1,682 making NMS less likely. She is s/p unremarkable Brain MRI, spot EEG. Ongoingrigidity, hyperreflexia and hyperpyrexia w/o dramatic change in encephalopathy (withdrawals to pain, tracks verbally but unable to follow simple commands) with consideration for severe serotonin syndrome requiring further treatment. Will reach out to poison control to assist in plan to escalate. Concern for mucous plugging on imaging with hypoxic respiratory failure overnight requiring HFNC. We will be aggressive with pulmonary hygiene (RT assistance appreciated) and continue Unasyn for now. Will give full medical support now, despite prior DNR/DNI, as this was made in context of presumed severe depression last month. Patient is encouraged to follow along. Francisco Lynne, [facility] 01/10/2022 2:18 PM * Ever Schwarz RCP - 01/09/2022 11:47 PM EDT Respiratory Therapy Heated Humidified High Flow INDICATIONS: High O2 requirement HIGH FLOW SETTINGS: Interface: High flow mask Flow: 50 L/min FiO2: 55 % VITAL SIGNS: HR: 85 RR: 28 SpO2: 92 % SKIN ASSESSMENT: Nares Assessment WDL: WDL CURRENT MEDICATIONS: , Nebulized Medications: n Acetylcystine BREATH SOUNDS: diminished ASSESSMENT: Received Aziza Fields on HFNC 45L on 55% FiO2 ~21:30 administered inhaled medications and performed percussion for ACT -pt unable to follow commands to cough but demonstrates ability to cough spontaneously, unable to assess secretions ~00:00 pt having increased FiO2 requirement into 70s -transitioned pt to HFNC and increased flow HHF 50L on 60% FiO2 PLAN: Continue to support pt with HFNC for FiO2 requirement, continue ACT Ever Schwarz RCP * Josiane Gamino RCP - 01/09/2022 5:34 PM EDT Respiratory Care High Flow Therapy Indication: High FiO2 Requirement Settings: O2 Device: High flow nasal cannula O2 Flow Rate (L/min): 35 L/min FiO2 (%): 35 % Vitals: Resp: 26 SpO2: 93 % Lung Sounds: Diminished Assessment: Transitioned patient to NC 5L. Patient had a sustained desat in the afternoon. Went back on HFNC. Plan: Wean settings as tolerated. Josiane Gamino RCP * Ronni Gna MD - 01/09/2022 8:13 AM EDT ICU Progress Note Patient info: Name: Aziza Fields : 1960 PCP: Madhavi Smith APRN PCP phone number: [phone] Date of Admission: 01/06/2022 ( Hospital Day 3 days ) Attending:David Valdivia MD ID:Aziza Fields is a 61 y.o. female with PMH of MDD, OFELIA, migraines who presents with overdose in attempted suicide. ?? 24 Hour Events/Subjective: -Continues to have waxing / waning mental status. Arousable to voice consistently but only occasionally following commands -PRN ativan given this morning for agitation -Incomprehensible mumbling this morning, arousable to voice -FiO2 down to 35% Objective: Vitals Last value Range last 24 hrs Temperature Temp: 37.6 ??C (99.68 ??F) Temp: [37.3 ??C (99.14 ??F)-37.7 ??C (99.86 ??F)] Heart Rate Heart Rate: 74 Heart Rate: [67-90] Blood Pressure BP: 124/67 BP: (100-142)/(53-105) Art Line BP BP (Arterial Line): -- MAP (NBP): [61 mmHg-114 mmHg] Respiratory Rate Resp: 21 Resp: [15-33] SpO2 SpO2: 96 % SpO2: [91 %-99 %] Oxygen Delivery Oxygen Therapy O2 Device: High flow nasal cannula O2 Flow Rate (L/min): 40 L/min FiO2 (%): 40 % Intake/Output Summary (Last 24 hours) at 01/09/2022 0813 Last data filed at 01/09/2022 0600 Gross per 24 hour Intake 343 ml Output 1680 ml Net -1337 ml Patient Vitals for the past 168 hrs: Weight 01/08/22 0600 49 kg (108 lb 0.4 oz) 01/06/22 2300 46.8 kg (103 lb 2.8 oz) Admit wt: 46.8 kg Physical Exam: Gen: in bed in NAD. On hiflow with c collar in place HEENT: anicteric, EOMI intact CV: RRR, no murmurs/rubs/gallops Resp: CTAB, no crackles/wheezes/ronchi, normal work of breathing Abd: normal bowel sounds, soft, non-tender to palpation, no rebound or guarding Ext: 2+ distal pulses, no pedal edema Neuro: Legs flexed at knee toes pointed plantarflexed. Rigidity R>L (improved compared to yesterday). 2-3 myoclonic jerks in lower extremities. Opens eyes to voice does not follow commands, intermittently responds to questions. Skin: b/l skin lacerations now repaired. Left wound from IO line at OSH. Labs: Recent Labs 01/09/22 0158 01/08/22 0142 01/07/22 0019 WBC 8.4 6.9 6.9 HGB 9.7* 9.9* 10.7* HCT 28.0* 29.6* 32.2* PLATELET 141* 145 195 MCV 97.2* 98.7* 100.0* Recent Labs 01/09/22 0158 01/08/22 0142 01/07/22 1410 01/07/22 0019 NA 139 140 138 140 CL 104 106 105 107 CO2 20* 16* K 3.2* 4.5 4.3 4.3 MAGNESIUM 0.79 -- 0.91 0.64* PHOS -- -- 3.7 3.0 CALCIUM 8.4* 8.5 8.6 8.2* BUN 13 12 13 12 CREATININE 0.51* 0.57* 0.74 0.78 LFTs Recent Labs 01/07/22 0019 PROT 5.3* ALBUMIN 3.4 AST Not Perf ALT 70* ALKPHOS 39 BILITOT 0.2 Coags Recent Labs 01/07/22 0019 INR 1.1 PT 12.4 PTT 25 Recent Labs 01/07/22 1707 01/07/22 1410 01/07/22 0131 01/06/22 2344 PHART 7.29* -- 7.42 -- [id number] 44 -- 27* -- PO2ART 39* -- 119* -- [id number] 20.6 -- 17.0* -- LACTATEVEN 2.3* 2.0 3.0* 3.7* [id number] -- -- 25 -- PFRATIOART2 -- -- 476 -- VBG (Venous Blood Gas) Recent Labs 01/07/22 1707 01/07/22 1410 01/07/22 0131 01/06/22 2344 PHVEN -- -- -- 7.28* AIH0MPA -- -- -- 40* PO2VEN -- -- -- 40 RPN1AST -- -- -- 18.5 LACTATEVEN 2.3* 2.0 3.0* 3.7* Imaging: -CT head/cervical spine no acute findings -Cxray KUB no acute findings Medications Scheduled Meds: ??? acetylcysteine 600 mg Inhalation Q4H ??? ampicillin-sulbactam 3 g Intravenous Q6H ??? sodium chloride 4 mL Nebulization Q6H While awake ??? enoxaparin 30 mg Subcutaneous Nightly Continuous Infusions: PRN Meds:.potassium chloride in water OR potassium chloride in water OR potassium chloride in water, ipratropium-albuteroL, LORazepam ?? Assessment/Plan: Aziza SpainLucaAzullisbeth is a 61 y.o. female with PMH of MDD, OFELIA, migraines who presents with overdosein attempted suicide. ?? Patient remains intermittently encephalopathic and agitated responsive to benzodiazepenes. 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 Continue with supportivecare for now. Unlikely stroke/seizure given normal MRI. Awaiting epileptologist read of EEG. Respiratory status is improving - RML collapse previously likely due to mucus plugging / aspirationdue to poor mental status. Responding to aggressive pulmonary hygiene. Will wean to LFNC. Lacerations now repaired with unasyn/tetanus vaccine to prevent possible infection. Patient will need 1:1 sitting and psychiatric management due to suicide attempt. Medically ready for downgrade to Hospital Medicine. Neuro/Psych: #AMS 2/2 toxic ingestion predominantly sedating medications & likely serotonin syndrome -Ativan .5mg q2hr prn agitation #MDD, OFELIA, h/o multiple suicide attempts - 1:1 sitter - holding home meds: on ativan, atarax, vilazodone, zolpidem, buspirone, lamictal CV: #bradycardia - respolved #hypotension - Resolved - HR in the 60s here Pulm: #Right middle lobe collapse likely mucus plugging #Possible aspiration pneumonia -Unasyn 3g 01/08-01/12 ??-Position on left side when possible, elevate head of bed -hiflow prn O2 sat >88-92% -Lasix 20mg IV Renal/: #Mixed AGMA + NAGMA -resolved MSK: #Bilateral wrist lacerations - Surgery repaired, --unasyn per ID --Tetanus booster given 01/07 - No active bleeding, continue to monitor #Cspine precautions -Precautions per trauma surgery --Assessment limited by encephalopathy ?? ID: - blood culture obtained x1 but low suspicion for infection - Tdap ordered - 3g 01/08-01/12 ?? Heme: #Anemia -Continue to monitor ?? FEN/GI: #Nutrition - NPO, give meds - Continue NPO while plan to extubate Endo: - RAGHU ?? PPx: F: NGT, NPO A: n/a S: d/c propofol gtt T: lovenox HOB >30 U: famotidine 20mg G: glucose <180 S: Hiflow L: NGT, 2 PIV Associated attestation - David Valdivia MD - 01/09/2022 2:30 PM EDT MICU ATTENDING ATTESTATION NOTE The patient was seen in conjunction with Dr. Gan, the resident physician and the MICU Blue team. Emerson independently performed the [place] portions of the history and physical exam. I have reviewed thenursing notes, vital signs, and all diagnostic studies personally including labs, imaging studies and EKGs. I have discussed the details of the case with the resident and agree with the assessment and plan as described in the resident note above unless noted otherwise below. Encephalopathy stable to mildly improved in comparison to yesterday. Respiratory requirements and needs also improved. FiO2 down to 35% and saturating 95% and can be transitioned to low-flow nasal cannula. Owing to the respiratory requirements I do not think the patient should get scheduled Ativan,Benadryl therapy for her serotonin syndrome. If this is needed to facilitate compliance with oxygendevices then it can be used as a as needed basis. Given the persistent encephalopathy it is prudentto order an MRI of the C-spine to clear cervical collar. Sitter continuously. Okay to transfer to the ICU. IS PATIENT CRITICALLY ILL ? Is there a high potential of sudden, clinically significant, or life threatening deterioration? Yes Is there a need for direct personal assessment and management to treat/prevent multiple vital organfailure/deterioration? Yes If this patient is not critically ill, I certify the patient requires continued in-patient hospitalization for [] PATIENT IS CRITICALLY ILL WITH THESE DIAGNOSES BEING MANAGED BY [facility] TEAM: Encephalopathy Acute Other upper extremity lacerations Pneumonia Aspiration Respiratory Failure Acute with hypoxia I personally performed 30 minutes of aggregate critical care time exclusive of procedures and teaching. This includes time spent during direct patient evaluation and reassessment, interpreting diagnostic tests, directing life and/or organ supporting interventions and documentation on the unit. David Valdivia MD * Josiane Gamino, [facility] - 01/08/2022 5:02 PM EDT Respiratory Care High Flow Therapy Indication: High FiO2 Requirement and Increased WOB Settings: O2 Device: High flow nasal cannula O2 Flow Rate (L/min): 30 L/min FiO2 (%): 50 % Vitals: Resp: 22 SpO2: 95 % Skin Integrity: WDL Lung Sounds: Diminished Assessment: Received patient on HFNC. Through out the day the patient's FiO2 requirement has raged from 50-100% Plan: Continue to wean settings as tolerated. Josiane Gamino RCP * Jeimy Dougherty MSW - 01/08/2022 4:46 PM EDT GEM CARVER attempted to get a hold of family to complete assessment. did not answer phone and voicemail not set up, called room and no answer, and sons number not listed. Plan: GEM CARVER will try again tomorrow Office of Care Management Float/Weekend Sales Secretary DASIA Murillo Pager [phone] * Kalia Wynne RD - 01/08/2022 12:43 PM EDT Nutrition Initial Note Aziza Fields is a 61 y.o. female with PMH of MDD, OFELIA, migraines who presents with overdosein attempted suicide. Pt now agitated w/ AMS. Reason for intervention: Low BMI Nutrition Recommendations: Advance diet as medically appropriate. If unable to advance diet and nutrition support within pt GOC, recommend: --Nutren 1.5 at 10mL/hr, advance 10mL/hr q6 hours to goal 43mL/hr. -- This rate is calculated to compensate for unplanned time off feedings due to potential procedures, etc. -- At goal, this will provide 860ml formula, 1290 calories, 59 grams protein, 657 ml water from formula and 86% of RDI's for vitamins and minerals. --Monitor hydration status on above TFs as they are concentrated. Pt may need additional fluids depending on IVFs, med flushes, p.o. Intake, etc. Monitor BMP, mag and phos daily. Replete per protocol. Please check Mag and Phos. Pt at risk for refeeding. Recommend daily multivitamin with minerals. Please weigh daily. I was able to discuss plan with provider Ronni Gan. Active Orders Diet NPO diet (Give Meds) Frequency: Effective Now Number of Occurrences: Until Specified Lab Results Component Value Date NA 140 01/08/2022 K 4.5 01/08/2022 CL 106 01/08/2022 CO2 22 01/08/2022 BUN 12 01/08/2022 CREATININE 0.57 (L) 01/08/2022 ESTGFR 99 01/08/2022 MAGNESIUM 0.91 01/07/2022 CALCIUM 8.5 01/08/2022 PHOS 3.7 01/07/2022 AST Not Perf 01/07/2022 ALT 70 (H) 01/07/2022 ALKPHOS 39 01/07/2022 BILITOT 0.2 01/07/2022 No results found for: POCGLU Skin Status: Shift Pressure Injury Prevention Occiput: No Injury Thoracic Spine: No Injury Sacral: Redness, Blanchable Ischial - left: Redness, Blanchable Ischial - right: Redness, Blanchable Heel - left: No Injury Heel - right: No Injury Elbow - left: No Injury Elbow - right: No Injury Device Sites: O2 sat monitor, oxygen tubing, high flow nasal cannula strap, IV sites, yuan, ECG Leads, BP Cuff Other Sites: (ID band) Relevant medications: noted Last Bowel Movement: 01/06/22 (fire prevention bureau captain) Admit Weight: 46.8 kg Estimated body mass index is 17.44 kg/m?? as calculated from the following: Height as of 01/07/22: 167.6 cm (5' 6). Weight as of this encounter: 49 kg (108 lb 0.4 oz). [place] Body Weight: 59kg Usual Body Weight: 115lbs per spouse Tunde on 01/08 Weight loss of ~8% body weight x 3 months based Tunde's recall and current admission weight. Wt Readings from Last 10 Encounters: 01/08/22 49 kg (108 lb 0.4 oz) 01/07/22 46.8 kg (103 lb 2.8 oz) 11/20/21 44.5 kg (98 lb) 03/15/18 56.7 kg (125 lb) 10/16/15 54.9 kg (121 lb) 09/30/15 53.5 kg (118 lb) 07/12/12 55.3 kg (122 lb) 07/11/12 55.3 kg (122 lb) 07/07/12 55.3 kg (122 lb) 07/06/12 55.3 kg (122 lb) Assessment: Estimated needs: Calories: 4773-0199 (30-35 kcal/kg)- for weight gain, start slow given risk for refeeding Protein: 59 grams (1.2 g/kg)- pt with stage 2 pressure wound Nutrition Focused Physical Exam (NFPE): Not performed Pt not appropriate for exam at this time w/ visual temporal wasting and overall cachectic appearance. Nutrition intake and intake history/Interview: Airplane Inspector spoke to Aziza's spouse (Tunde) on the phone today. He reports aziza has a terrible home diet, eating only bran flakes for breakfast, skipping lunch and eating fried eggs for supper (estimate this provides a maximum of 550 calories daily- ~38% EER). He reports Aziza has always maintained a low body weight and never wanted to weigh more than 120lbs, she never ate a lot but previously ate enough to sustain. Since she had COVID in September, shehas difficulty tasting foods and only eats bran flakes, eggs, peas, asparagus, salsa and veggie burgers. Since September her intake has significantly declined and Tunde reports she now weights less than 100lbs, suggesting about 15lb weight loss in the past 3 months. Tunde tells typewriter operator automatic Aziza has had ONSin the past but did not tolerate them. If unable to advance to PO diet, tube feed recs outlined above. Protein-calorie Malnutrition: Not enough data to assess though at risk given low BMI, subjective report of weight loss and poor PO intake. (Jazmin, JPEN J Parenteral Enteral Nutr. 2012 December; 36(3): 273-83) Nutrition to continue to follow up while inpatient Kalia Wynne RD Pager #:[phone] * Amador Toledo MD - 01/08/2022 7:10 AM EDT ICU Progress Note Patient info: Name: Aziza SpainLucaHumberto : 1960 PCP: Madhavi Smith APRN PCP phone number: [phone] Date of Admission: 01/06/2022 ( Hospital Day 2 days ) Attending:David Valdivia MD ID:Aziza Fields is a 61 y.o. female with PMH of MDD, OFELIA, migraines who presents with overdose in attempted suicide. ?? 24 Hour Events/Subjective: Yesterday: --Extubated. Maintained on Cspine. Got tetatnus booster and started on unasyn. Overnight: --Poison control advised just supportive care. Became agitated and thrashing requiring propofol. Subsequenty required levo. Surgery repaired b/l lacerations and advised c collar percautions with CThead and neck. This AM: --Patient initially unresponsive to pain RAAS -5, after stopping propofol following commands and opens eyes to voice. Intubated. Objective: Vitals Last value Range last 24 hrs Temperature Temp: 37.6 ??C (99.68 ??F) Temp: [36.6 ??C (97.88 ??F)-37.6 ??C (99.68 ??F)] Heart Rate Heart Rate: 69 Heart Rate: [53-94] Blood Pressure BP: 107/57 BP: (94-137)/(42-72) Art Line BP BP (Arterial Line): -- MAP (NBP): [59 mmHg-93 mmHg] Respiratory Rate Resp: 15 Resp: [10-30] SpO2 SpO2: 97 % SpO2: [85 %-100 %] Oxygen Delivery Oxygen Therapy O2 Device: High flow mask O2 Flow Rate (L/min): 40 L/min FiO2 (%): 70 % Intake/Output Summary (Last 24 hours) at 01/08/2022 1031 Last data filed at 01/08/2022 1000 Gross per 24 hour Intake 2783 ml Output 1060 ml Net 1723 ml Patient Vitals for the past 168 hrs: Weight 01/08/22 0600 49 kg (108 lb 0.4 oz) 01/06/22 2300 46.8 kg (103 lb 2.8 oz) Admit wt: 46.8 kg Physical Exam: Gen: in bed in NAD. On hiflow with c collar in place HEENT: anicteric, EOMI intact CV: RRR, no murmurs/rubs/gallops Resp: CTAB, no crackles/wheezes/ronchi, normal work of breathing Abd: normal bowel sounds, soft, non-tender to palpation, no rebound or guarding Ext: 2+ distal pulses, no pedal edema Neuro: Legs flexed at knee toes pointed plantarflexed. Increased tone diffusely worse in lower extremities with clonus 2-3 jerks in lower extremities. Opens eyes to voice does not follow commands, intermittently responds to questions. Skin: b/l skin lacerations now repaired. Left wound from IO line at OSH. Labs: Recent Labs 01/08/2214101/07/22 0019 WBC 6.9 6.9 HGB 9.9* 10.7* HCT 29.6* 32.2* PLATELET 145 195 MCV 98.7* 100.0* Recent Labs 01/08/22 01401/07/22 1410 01/07/22 0019 NA 140 138 140 CL 106 105 107 CO2 22 20* 16* K 4.5 4.3 4.3 MAGNESIUM -- 0.91 0.64* PHOS -- 3.7 3.0 CALCIUM 8.5 8.6 8.2* BUN 12 13 12 CREATININE 0.57* 0.74 0.78 LFTs Recent Labs 01/07/22 0019 PROT 5.3* ALBUMIN 3.4 AST Not Perf ALT 70* ALKPHOS 39 BILITOT 0.2 Coags Recent Labs 01/07/22 0019 INR 1.1 PT 12.4 PTT 25 Recent Labs 01/07/22 1707 01/07/22 1410 01/07/22 0131 01/06/22 2344 PHART 7.29* -- 7.42 -- [id number] 44 -- 27* -- PO2ART 39* -- 119* -- [id number] 20.6 -- 17.0* -- LACTATEVEN 2.3* 2.0 3.0* 3.7* [id number] -- -- 25 -- PFRATIOART2 -- -- 476 -- VBG (Venous Blood Gas) Recent Labs 01/07/22 17001/07/22 1410 01/07/22 0131 01/06/22 2344 PHVEN -- -- -- 7.28* [id number] -- -- -- 40* PO2VEN -- -- -- 40 [id number] -- -- -- 18.5 LACTATEVEN 2.3* 2.0 3.0* 3.7* Imaging: -CT head/cervical spine no acute findings -Cxray KUB no acute findings Medications Scheduled Meds: ??? acetylcysteine 600 mg Inhalation Q4H ??? ampicillin-sulbactam 1.5 g Intravenous Q6H ??? enoxaparin 30 mg Subcutaneous Nightly Continuous Infusions: ??? NORepinephrine Stopped (01/08/22 024) PRN Meds:.sodium chloride, ipratropium-albuteroL ?? Assessment/Plan: Aziza Fields is a 61 y.o. female with PMH of MDD, OFELIA, migraines who presents with overdosein attempted suicide. ?? Patient remains intermittently encephalopathic and agitated responsive to benzodiazepenes. 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 Continue with supportivecare for now. Unlikely stroke/seizure given normal MRI. Awaiting epileptologist read of EEG. Worsening oxygen requirement overnight with xray fidings of right middle lobe collapse considering for plugging likely related to aspiration from impaired airwayguarding/encephalopathy and supine position for c-spine precautions. Will c/w with unasyn for possible aspiration pneumonia. Lacerations now repaired with unasyn/tetanus vaccine to prevent possible infection. Patient will need 1:1 sitting and psychiatric management due to suicide attempt. 01/08 -Benzo prn -Unasyn 3g q -20mg IV lasix -Hiflow o2 Neuro/Psych: #AMS 2/2 toxic ingestion predominantly sedating medications & likely serotonin syndrome -Ativan .5mg q2hr prn agitation #MDD, OFELIA, h/o multiple suicide attempts - 1:1 sitter - holding home meds: on ativan, atarax, vilazodone, zolpidem, buspirone, lamictal CV: #bradycardia - respolved #hypotension - Resolved - HR in the 60s here Pulm: #Right middle lobe collapse likely mucus plugging #Possible aspiration pneumonia -Unasyn 3g 5/20-01/12 ??-Position on left side when possible, elevate head of bed -hiflow prn O2 sat >88-92% -Lasix 20mg IV Renal/: #Mixed AGMA + NAGMA -resolved MSK: #Bilateral wrist lacerations - Surgery repaired, --unasyn per ID --Tetanus booster given 01/07 - No active bleeding, continue to monitor #Cspine precautions -Precautions per trauma surgery --Assessment limited by encephalopathy ?? ID: - blood culture obtained x1 but low suspicion for infection - Tdap ordered - 3g 01/08-01/12 ?? Heme: #Anemia -Continue to monitor ?? FEN/GI: #Nutrition - NPO, give meds - Continue NPO while plan to extubate Endo: - RAGHU ?? PPx: F: NGT, NPO A: n/a S: d/c propofol gtt T: lovenox HOB >30 U: famotidine 20mg G: glucose <180 S: Hiflow L: NGT, 2 PIV Associated attestation - David Valdivia MD - 01/08/2022 12:36 PM EDT MICU ATTENDING ATTESTATION NOTE The patient was seen in conjunction with Dr. Toledo, the resident physician and the MICU Blue team.I have independently performed the gresham portions of the history and physical exam. I have reviewed the nursing notes, vital signs, and all diagnostic studies personally including labs, imaging studiesand EKGs. I have discussed the details of the case with the resident and agree with the assessment and plan as described in the resident note above unless noted otherwise below. IS PATIENT CRITICALLY ILL ? Is there a high potential of sudden, clinically significant, or life threatening deterioration? Yes Is there a need for direct personal assessment and management to treat/prevent multiple vital organfailure/deterioration? Yes If this patient is not critically ill, I certify the patient requires continued in-patient hospitalization for [] PATIENT IS CRITICALLY ILL WITH THESE DIAGNOSES BEING MANAGED BY CCS TEAM: Encephalopathy Acute Respiratory Failure Acute with hypoxia I personally performed 30 minutes of aggregate critical care time exclusive of procedures and teaching. This includes time spent during direct patient evaluation and reassessment, interpreting diagnostic tests, directing life and/or organ supporting interventions and documentation on the unit. David Valdivia MD * Julio César Baldwin - 01/08/2022 6:59 AM EDT Medical Student Critical Care Progress Note Patient Name: Aziza Fields Age: 61 y.o. : 1960 Admit Date: 01/06/2022 Subjective Patient Description: Aziza Fields is a 61 y.o. F with a past medical history of MDD, OFELIA, migraines presented with overdose in attempted suicide and wrist injuries. Current Active Issues -Hypoxic Respiratory Failure 2/2 RML collapsed lung -Serotonin Syndrome 24 Hour Events -Trauma Surgery tried clearing collar, but was too agitated and not mentating well -CK uptrending (1200's at midnight), continued fluids -became agitated and hallucinated overnight, Haldol given -MRI r/o intracranial process, Neuro preliminarily r/o seizures on EEG, but has not been read by the epileptologist AM -desaturation to 75%, placed from NC to non-rebreather to HFNC flow rate 50, FiO2 90% -CXR, RML opacity -Mental status improved from last night, opening eyes, responding to stimulus, family believes she might be recognizing them -T 37.6 F and rising Objective Vitals Last value Range last 24 hrs Temperature Temp: 37 ??C (98.6 ??F) Temp: [36.6 ??C (97.88 ??F)-37.4 ??C (99.32 ??F)] Heart Rate Heart Rate: 79 Heart Rate: [50-94] Blood Pressure BP: 137/72 BP: (94-137)/(42-72) Respiratory Rate Resp: 18 Resp: [10-30] SpO2 SpO2: 99 % SpO2: [56 %-100 %] Body mass index is 17.44 kg/m??. Physical Exam Gen: Patient in bed, disoriented HENT: NCAT, on C-collar precautions CV: RRR, no m/r/g Pulm: Difficult to auscultate GI: not examined Extrem: no edema Neuro: Patient responsive to stimulus, but not tracking; automatisms present; patient displays myoclonus and rigidity Respiratory Support: HFNC 40L, FiO2 60% Lines: PIVx2, Yuan Fluid Balance Intake/Output Summary (Last 24 hours) at 01/08/2022 0659 Last data filed at 01/08/2022 0600 Gross per 24 hour Intake 2947 ml Output 1095 ml Net 1852 ml Since Admit: +1.8 L UOP: 0.9 ml/kg/hr Infusions ??? NORepinephrine Stopped (01/08/22 0247) Micro: BC no growth 1d Studies CBC: Hgb 9.9 (L), WBC 6.9, Plt 145 BMP: Na 140, K 4.5, Cl 106, HCO3 22, AG 12, BUN 12, Cr 0.57, Ca 8.5 CK 1209 (01/07 2255) Imaging CXR New bibasilar patchy airspace opacities with total opacification of RML - aspiration pneumonitis possible MRI (01/07/22 1618) No new acute process Assessment and Plan Aziza Fields is a 61 y.o. F with a past medical history of MDD, OFELIA, migraines presented with overdose in attempted suicide and wrist injuries. The patient's mental status is steadily improving, rigidity is worsening. 01/08/22 -Give Benzodiazepine to help with muscle rigidity prn -Acetylcysteine (Mucomyst) 600 mg q4h -Monitor mental status -Increase Unasyn dose to cover pneumonia Neuro/Psych:?? #AMS 2/2 toxic ingestion predominantly sedating medications, likely serotonin syndrome - Ativan 0.5mg q2h prn agitation #MDD, OFELIA, h/o multiple suicide attempts - D/c sedation - 1:1 sitter, Psychiatry consult?? -??holding??home meds:??on ativan, atarax, vilazodone, zolpidem, buspirone, lamictal per chart review Pulm:??Increasing oxygen requirements overnight/this morning (NC to HFNC) #RML Opacity - Mucous plugging, Aspiration pneumonitits vs Pneumonia - Pulmonary Hygiene: R side up, sitting up - Mucomyst prn - Unasyn 3g 01/08-01/12 CV: RAGHU -MAP goal > 65 Renal/:?RAGHU #Mixed AGMA + NAGMA - resolved ?? MSK: Bilateral wrist lacerations - Surgery repaired, --unasyn 1.5g q6 x3 days - increased, look at Pulm --Tetanus booster - No active bleeding, continue to monitor ?? ID: -??blood culture obtained x1 but low suspicion for infection - Tdap ordered ?? Heme: Anemia, Hgb 9.9 01/08, 10.8 here on admission -Continue to monitor ?? FEN/GI: -NPO ?? Endo: RAGHU ICU Checklist -Feeding: NPO -Activity goal for today: bedrest -Sedation/Analgesia: N/A -Thromboprophylaxis: Lovenox -HOB elevation 30 deg -Ulcer ppx: Famotidine -Glycemic control: glc <180 -Indwelling devices: Yuan, PIVx2 -De-escalation abx: not at this moment -Family Communication/Contact: Tunde Paul (Spouse), Chris (Son) Goals: Patient/Family's overall goal of care is currently restorative. Will further discuss with patient and family to understand values and preferences. CODE STATUS: DNR Julio César Baldwin, MS4 [facility] [employer] 01/08/22 * Jeffry Peters, [facility] - 01/08/2022 6:56 AM EDT Respiratory Therapy Heated Humidified High Flow INDICATIONS: High O2 requirement, Work of breathing and Heat/Humidification HIGH FLOW SETTINGS: Interface: High flow nasal cannula Flow: 50 L/min FiO2: 90 % VITAL SIGNS: HR: 79 RR: 18 SpO2: 99 % SKIN ASSESSMENT: Clean and intact BREATH SOUNDS: diminished with some rhonchi Last Chest X-ray: Results for orders placed during the hospital encounter of 01/06/22 XR Chest One View Narrative EXAMINATION: XR CHEST ONE VIEW CLINICAL HISTORY: assess tube placement after transport TECHNIQUE: 1 view of the chest COMPARISON: Chest x-ray dated 08/16/2013 FINDINGS: Endotracheal tube 10 cm above the emmanuel. Enteric tube courses below the diaphragm and beyond the [id number]. And trachea, mainstem bronchi, cardiomediastinal silhouette, and beth are within normal limits. Minimal central pulmonary vascular congestion. Biapical capping. No consolidation, pleural effusion or pneumothorax. Levocurvature of the lower thoracic spine. No displaced fracture. No dislocation. Unremarkable upper abdomen. Impression * Endotracheal tube 10 cm above the emmanuel. Please advance. * Enteric tube courses below the diaphragm and beyond the [id number]. * Minimal central pulmonary vascular congestion. Thank you for letting us participate in the care of this patient. If you are a health care provider and have any questions regarding this report, please contact the number below. For patients who have questions please contact the health plant health care technician that requested your imaging first. Electronically signed by: Bob Escalante MD, [facility] ([phone]), at 01/07/2022 2:06 AM ASSESSMENT: Pt initially received on NC at 5L. Pt over the night had short periods of desaturation but recovered quick. This am ~515 the pt required O2 at 100% NRB and was having trouble with maintaining adequate sats. Th ept was sx'd to induce cough and the pt was placed on HFNC. PLAN: Will continue with HFNC and adjust as able. CXR obtained and the team is evaluating Aziza and making a plan. VBG mild hypoventilation. Jeffry Peters RCP * Bertram Martinez MD - 01/08/2022 5:55 AM EDT TRAUMA & ACUTE SURGICAL CARE SERVICE TERTIARY SURVEY ID/MECHANISM OF INJURY: Aziza Fields is a 61 y.o. Female admitted on 01/06/2022 following bilateral wrist lacerations for the management of Neurologic and Soft Tissue injuries (Please see below box for a complete summary of injuries) HISTORY OF PRESENT ILLNESS: Aziza Fields is a 61 y.o. female [place] [facility] [place] lacer[place]. Description of events leading up to injury includes: ?? Per chart review the patient has a history of suicide attempts involving overdoses and increasing severity. Per report her left to run some errands and upon his return he was unable to find her. Eventually the police were called and she was found down in her shed. This took about 6 hours per report. When EMS arrived she was hypothermic to 28.2 ??C, bradycardic, hypotensive with multiple pillows around her and lacerations to bilateral wrists. She was intubated for airway protection, received Narcan, glucagon, and bicarbonate with unknown effects. She required 10 of Levophed and her heart rate improved. Her hemoglobin was noted to be 10.8 at the outside hospital one of her pills was identified to be gabapentin 100 mg, Poison control was contacted. ?? Upon [place] [facility] [place] was not on sedation but propofol was started due to thrashing. Primary survey revealed: intact airway with ETT in place, equal breath sounds/respirations, present2+ peripheral pulses with stable vital signs and no signs of bleeding GCS: GCS 10 (6 - Follows simple motor commands, 1 - Makes no noise, 3 - Opens eyes to loud noise orcommand), and complete exposure. Secondary survey revealed: 1. Bilateral wrist lacerations PMHx: Past Medical History: Diagnosis Date ??? Anxiety ??? Depression ??? Dyspareunia ??? Irritable bowel syndrome ??? Pelvic pain PSHx: Past Surgical History: Procedure Laterality Date ??? INGUINAL HERNIA REPAIR Right 2009 ??? LAPAROSCOPY 1996 scar tissue/ adhesions ??? PRO ELECTROCONVULSIVE THERAPY 08/17/2013 ECT performed by Brandie Rios MD at [facility] OR ??? PRO ELECTROCONVULSIVE THERAPY 08/20/2013 ECT performed by Jeremy Condon MD at [facility] OR ??? PRO ELECTROCONVULSIVE THERAPY 08/21/2013 ECT performed by Mitchell Bunch MD at [facility] OR ??? PRO ELECTROCONVULSIVE THERAPY 08/23/2013 ECT performed by Brandie Rios MD at [facility] OR ??? PRO ELECTROCONVULSIVE THERAPY 08/30/2013 ECT performed by Jeremy Condon MD at [facility] OR ??? PRO ELECTROCONVULSIVE THERAPY 09/06/2013 ECT performed by Jeremy Condon MD at [facility] OR ??? PRO ELECTROCONVULSIVE THERAPY 09/27/2013 ECT performed by Jeremy Condon MD at [facility] OR ??? PRO ELECTROCONVULSIVE THERAPY 10/11/2013 ECT performed by Jeremy Condon MD at [facility] OR ??? PRO ELECTROCONVULSIVE THERAPY 10/25/2013 ECT performed by Robert Gabriel MD at [facility] OR ??? PRO ELECTROCONVULSIVE THERAPY 11/29/2013 ECT performed by João Pratt MD at [facility] OR ??? PRO ELECTROCONVULSIVE THERAPY 12/11/2013 ECT performed by Mick De Leon MD at [facility] OR ??? PRO ELECTROCONVULSIVE THERAPY 12/27/2013 ECT performed by Brandie Rios MD at [facility] OR HOME MEDICATIONS: Medications Prior to Admission Medication Sig Dispense Refill Last Dose ??? spironolactone (ALDACTONE) 50 mg Tablet TAKE THREE TABLETS BY MOUTH EVERY DAY 180 tablet 3 ??? LORazepam (Ativan) 1 mg Tablet ??? cholecalciferol, Vitamin D3, 125 mcg (5,000 [...] Sleep. ??? busPIRone (BUSPAR) 30 mg Tablet ??? lamoTRIgine (LAMICTAL) 100 mg Tablet Take 200 mg by mouth daily. ??? mirtazapine (REMERON) 30 mg tablet Take 1 tablet by mouth nightly. Indications: Major Depressive Disorder 30 tablet 0 CURRENT MEDICATIONS: ??? lactated ringers infusion ??? NORepinephrine (Levophed) (16 mcg/mL) in dextrose 5% 250 mL infusion ??? ampicillin-sulbactam (Unasyn) 1.5 g vial attach to sodium chloride 0.9% 50 mL Mini-Bag Plus ??? enoxaparin (Lovenox) (30 mg/0.3 mL) subcutaneous injection 30 mg ??? ondansetron (pf) (Zofran) (2 mg/mL) injection 4 mg ??? lactated ringers infusion ondansetron ALLERGIES: Allergies Allergen Reactions ??? Latex Hives ??? Sulfa (Sulfonamide Antibiotics) Hives ??? Trazodone Other (See Comments) headache ??? Lactose Intolerance [Lactase] Diarrhea FAMILY HISTORY: is non-contributory SOCIAL HISTORY: Social History Socioeconomic History ??? Marital status: Spouse name: Not on file ??? Number of children: Not on file ??? Years of education: Not on file ??? Highest education level: Not on file Occupational History ??? Not on file Tobacco Use ??? Smoking status: Never Smoker ??? Smokeless tobacco: Never Used Vaping Use ??? Vaping Use: Never used Substance and Sexual Activity ??? Alcohol use: Yes Alcohol/week: 1.0 standard drink Types: 1 Glasses of wine per week Comment: interminttent ??? Drug use: No ??? Sexual activity: Yes Partners: Male control/protection: Post-menopausal, Surgical Other Topics Concern ??? Not on file Social History Narrative ??? Not on file Social Determinants of Health Financial Resource Strain: Not on file Food Insecurity: Not on file Transportation Needs: Not on file Physical Activity: Not on file Housing Stability: Not on file REVIEW OF SYSTEMS: complete 10 system ROS performed with pertinent findings below. Pertinent items are noted in HPI. PHYSICAL EXAM: VITALS: Last value Range last 24 hrs Temperature Temp: 37.1 ??C (98.78 ??F) Temp: [36.6 ??C (97.88 ??F)-37.4 ??C (99.32 ??F)] Heart Rate Heart Rate: 72 Heart Rate: [50-94] Blood Pressure BP: 119/56 BP: (94-123)/(56-66) Respiratory Rate Resp: 13 Resp: [10-30] SpO2 SpO2: 94 % SpO2: [56 %-100 %] I/O last 3 completed shifts: In: 800.8 [I.V.:800.8] Out: 965 [Urine:965] Body mass index is 16.78 kg/m??. underweight GENERAL: Now on HFNC, ongoing encephalopathy and thrashing in bed HEAD: Normocephalic, without obvious abnormality, atraumatic FACE: Pupils: equal, round, reactive to light, no periorbital ecchymoses; upward gauze Tympanic Membranes: not visualized Midface: no tenderness, no swelling, no contusions, no lacerations and no abrasions over entire face Oropharynx: nonbloody, moist mucous membranes, no lacerations, no malocclusion and no chipped or missing teeth NECK: unable to assess tenderness to palpation, trachea midline, no masses, no swelling, no contusions and no abrasions LUNG: equal, clear breath sounds bilaterally and no crepitus CARDIAC: Regular rate and rhythm or without murmur or extra heart sounds ABDOMEN/GI: soft, non-tender, non-distended, no abrasions and no contusions PELVIS: stable to AP and/or lateral compression RECTAL: Deffered EXTREMITIES: normal and symmetric passive movement, normal passive range of motion, no joint swelling, bilateral wrists with lacerations suture repaired - kerlix wrapping removed revealing well approximated incisions with prolene sutures, no active bleeding SPINE: no deformity, no stepoffs, unable to assess tenderness to palpation and no abrasions over cervical spine, thoracic spine and/or lumbar spine SKIN: no lacerations, abrasions or contusions on complete skin exam other then noted above NEURO: Mental Status: opens eyes to voice but does not follow commands, clonus in bilateral lower extremities Cranial Nerves: Unable to assess Motor: Unable to assess Sensory: Unable to assess LABORATORY: Recent Labs 01/08/22 0142 01/07/22 0019 WBC 6.9 6.9 HGB 9.9* 10.7* HCT 29.6* 32.2* PLATELET 145 195 PT -- 12.4 INR -- 1.1 PTT -- 25 Recent Labs 01/08/22 0142 01/07/22 1410 01/07/22 0019 NA 140 138 140 K 4.5 4.3 4.3 CL 106 105 107 CO2 22 20* 16* BUN 12 13 12 CREATININE 0.57* 0.74 0.78 GLUCOSE 102 125 90 CALCIUM 8.5 8.6 8.2* MAGNESIUM -- 0.91 0.64* PHOS -- 3.7 3.0 RADIOLOGY: CT Head wo Contrast (Generic) Result Date: 01/07/2022 EXAMINATION: CT HEAD WO CONTRAST (GENERIC) CLINICAL HISTORY: Mental status change, unknown cause; Found unresponsive after suicide attempt TECHNIQUE: CT head performed without intravenous contrast administration. COMPARISON: MRI brain 08/04/2018 FINDINGS: Streak artifact limits evaluation. No intracranial hemorrhage, mass, mass effect, or midline shift. No calvarial fracture or extra- axial collection. Brooks-white matter differentiation is preserved. Normal ventricular system caliber. Basal cisterns are patent. Paranasal sinuses and mastoid air cells are well-aerated. 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 No acute intracranial pathology. Preliminary report signed by: Andrea Machuca at 01/07/2022 5:16 AM Ihave personally reviewed the image(s) and the resident's interpretation and agree with the findings, Bob Escalante MD at 01/07/2022 5:23 AM Thank you for letting us participate in the care of this patient. If you are a health care provider and have any questions regarding this report, please contact the number below. For patients who have questions please contact the health plant health care technician that requested your imaging first. Electronically signed by: Bob Escalante MD, [facility] ([phone]), at 01/07/2022 5:[address] Cervical Spine wo Contrast Result Date: 01/07/2022 EXAMINATION: CT CERVICAL SPINE WO CONTRAST CLINICAL HISTORY: Neck trauma, abnormal mental status orneuro exam (Ped 3-15y); Found down after suicide attempt, unresponsive eval for S spine injury TECHNIQUE: CT cervical spine performed without intravenous contrast administration. COMPARISON: None FIND INGS: Exaggerated cervical lordosis. No acute fracture or dislocation. Minimal C3-C4, C4-C5 and C5-C6 retrolistheses. Multilevel degenerative changes in the spine. Posterior disc bulge effaces the thecal sac at C5-C6. Mild bilateral neuroforaminal narrowing at C6-C7. Prevertebral and paravertebral soft tissues are within normal limits. Partially visualized endotracheal and enteric tubes. Biapicalpleural-parenchymal scarring. . * No acute fracture or dislocation. * Minimal C3-C4, C4-C5 and C5-C6 retrolistheses. * Multilevel degenerative changes as detailed above. Preliminary report signed by: Andrea Machuca at 01/07/2022 5:23AM I have personally reviewed the image(s) and the resident's interpretation and agree with the findings, Bob Escalante MD at 01/07/2022 5:28 AM Thank you for letting us participate in the care of thispatient. If you are a health care provider and have any questions regarding this report, please contact the number below. For patients who have questions please contact the health plant health care technician that requested your imaging first. Electronically signed by: Bob Escalante MD, [facility] ([phone]), at 01/07/2022 5:28 AM MRI Brain wo Contrast Result Date: 01/07/2022 EXAMINATION: MRI BRAIN WO CONTRAST CLINICAL HISTORY: Seizure, new-onset, no history of trauma TECHNIQUE: Routine MRI of the brain was performed without contrast COMPARISON: MRI brain 08/04/2018 FINDINGS: No diffusion-weighted abnormality, mass effect or extra-axial collection. No evidence for hemorrhage. A few scattered nonspecific small foci of white matter T2 prolongation which may reflect chronic microangiopathy. No acute hemorrhage. The ventricles are normal in caliber. Regional marrow signal is normal. Small submucosal retention cyst in the left maxillary sinus. Mild ethmoid air cell mucosal thickening. Mild prominence of CSF in the optic nerve sheaths. The orbits otherwise appear anjana l. Subgaleal or scalp edema in the suboccipital region as well as right parietal region. Partial fluid opacification of right mastoid air cells. No evidence for acute process. Thank you for letting us participate in the care of this patient. Ifyou are a health care provider and have any questions regarding this report, please contact the number below. For patients who have questions please contact the health plant health care technician that requested your imaging first. Abdomen 1 view (Generic) Result Date: 01/07/2022 EXAMINATION: XR ABDOMEN 1 VIEW (GENERIC) CLINICAL HISTORY: assess NGT after transport TECHNIQUE: Single frontal view of the abdomen COMPARISON: None FINDINGS: Enteric tube terminates in the gastric antrum. Nonobstructive bowel gas pattern. No portal venous gas. Degenerative changes in the spine. Enteric tube terminates in the gastric antrum. Thank you for letting us participate in the care of this patient. If you are a health care provider and have any questions regarding this report, pleasecontact the number below. For patients who have questions please contact the health plant health care technician that requested your imaging first. Electronically signed by: Bob Escalante MD, [facility] ([phone]), at 01/07/2022 2:07 AM XR Pelvis (Generic) Result Date: 01/07/2022 EXAMINATION: XR PELVIS (GENERIC) CLINICAL HISTORY: s/p found down SI attempt unresponsive eval for fx TECHNIQUE: 1 views of the pelvis COMPARISON: Abdominal radiographs 01/07/2022. FINDINGS: Urinary catheter in place. Degenerative changes in lower lumbar spine. Symmetric SI joints. No pubic symphysis diastasis or craniocaudal translation. No acute fracture or dislocation. Pelvic phleboliths. Nonobstructive bowel gas pattern. No acute fracture or dislocation. Thank you for letting us participate in the care of this patient.If you are a health care provider and have any questions regarding this report, please contact the number below. For patients who have questions please contact the health plant health care technician that requested your imaging first. Electronically signed by: Bob Escalante MD, [facility] ([phone]), at 01/07/2022 8:03 AM XR Chest One View Result Date: 01/07/2022 EXAMINATION: XR CHEST ONE VIEW CLINICAL HISTORY: assess tube placement after transport TECHNIQUE: 1view of the chest COMPARISON: Chest x-ray dated 08/16/2013 FINDINGS: Endotracheal tube 10 cm above the emmanuel. Enteric tube courses below the diaphragm and beyond the [id number]. And trachea, mainstem bronchi, cardiomediastinal silhouette, and beth are within normal limits. Minimal central pulmonary vascular congestion. Biapical capping. No consolidation, pleural effusion or pneumothorax. Levocurvature of the lower thoracic spine. No displaced fracture. No dislocation. Unremarkable upper abdomen. * Endotracheal tube 10 cm above the emmanuel. Please advance. * Enteric tube courses below the diaphragm and beyond the [id number]. * Minimal central pulmonary vascular congestion. Thank you for letting us participate in the care of this patient. If you are a health care provider and have any questions regarding this report, please contact the number below. For patients who have questions pleasecontact the health plant health care technician that requested your imaging first. SSMENT/SUMMARY OF INJURIES: 61 y.o. female with PMH of anxiety, depression, IBS, pelvic pain, here s/p self- inflicted bilateralwrist lacerations and suicide attempt. Traumatic injuries included in chart below. Injuries identified on Tertiary Survey: 1. None Hospital Issues: - Acute Pain - Bilateral wrist lacerations (repaired) - Encephalopathy Traumatic Injuries: Injury Intervention Follow-up SKIN (lacerations, abrastions): Bilateral wrist lacerations TRAUMA - s/p bedside repair on 01/07 - dressing removed on procedure day 2, can leave open to air - complete 3 days of unasyn - tetanus booster administered on 01/07 TRAUMA Will remove sutures in 10 days if still inpatient, otherwise can follow-up with PCP for removal Acute in hospital issues: Tetanus status: Booster given on 01/07/22 Admission UA: Latest Reference Range & Units 01/07/22 04:11 Color UA Yellow Yellow Appearance UA Clear Clear Spec Dutton UA 1.005 - 1.030 1.019 PH UA 5.0 - 8.0 5.0 Protein UA Negative mg/dL Negative Glucose UA Negative mg/dL 100 ! Ketones UA Negative mg/dL 40 ! Bilirubin UA Negative mg/dL Negative [1] Urobilinogen UA Normal mg/dL Normal Blood UA Negative mg/dL Negative Leukocytes UA Negative mcL Negative Nitrite UA Negative Negative Tox Screen: Latest Reference Range & Units 01/07/22 00:19 Acetamin Lvl 10 - 30 mg/L <5 (L) [1] Salicylate Lvl mg/L 4 [2] Ethanol Lvl <=99 mg/L 392 (H) [3] Latest Reference Range & Units 01/06/22 23:59 NERISSA Conf Requested No U Barbiturates Screen None Detected None Detected [1] U Benzodiazepines Screen None Detected None Detected [2] U Cocaine Screen None Detected None Detected [3] U Methadone Metabolites Screen None Detected None Detected [4] U Opiate Screen None Detected None Detected [5] U Cannabinoid Screen None Detected None Detected [6] U Oxycodone Screen None Detected None Detected [7] U Buprenorphine Screen None Detected None Detected [8] U Fentanyl Screen None Detected None Detected [9] U Tricyclics Screen None Detected Presumptive Pos ! [10] U Ethanol Screen None Detected Positive ! [11] U Amphetamines Screen None Detected Presumptive Pos ! [12] U Adulterants Screen None Detected None Detected [13] Resolved in hospital issues: Hypoxic respiratory failure Chronic health conditions: Per primary team Incidental Findings: none [] Incidental Findings Form Completed Patient remains encephalopathic and unable to follow commands reliably, precluding ability to clearc-spine collar. Primary team planning on obtaining MRI c-spine. Will follow-up results and if no injuries identified will be available for c-spine clearance. If injuries identified will need to consult spine. Please page [phone] with any questions or concerns. Bertram Martinez MD 01/08/2022 Trauma pager [phone] * Dipti Oreilly MD - 01/07/2022 10:41 PM EDT Unable to completely clear C collar because patient somewhat disoriented (waxing and waning per report) but able to answer yes and no questions. She denies having any back pain and none with palpation of T/L spine. Likely low energy mechanism as well. Changed spine order to reflect likely no T/L injuries. Please page [phone] if she develops or complains of back pain. Will attempt C spine clearance again in am. Dipti Oreilly MD PGY-4 Pager [phone] * Butch Jorgensen RN - 01/07/2022 5:41 PM EDT OUTCOME EVALUATION NOTE: OUTCOME SUMMARY: Pt received intubated and sedated to a RASS of -4. Propofol titrated off in the AM. Pt extubated inearly afternoon. Immediately post extubation pt had an episode of shaking movements and posturing. Team called to bedside. 1mg ativan given and episode resolved. VS remained stable throughout episode. Pt taken to stat MRI, see results. Placed on EEG monitoring post MRI. 1 to 1 observation initiatedfor SI precautions. PLAN MOVING FORWARD: Continue to monitor mental status INDIVIDUALIZED FALL PREVENTION INTERVENTIONS: Patient-specific fall risk factors per assessment: [current deficits]: Generalized weakness, AMS, Assistance [level of assistance required for transfers and ambulation]: 2A Supervision [direct monitoring required during toileting and ADLs]: 2A Surveillance [continuous indirect monitoring]: ICU monitoring Patient-specific fall prevention interventions for sensory deficits provided, if applicable: [X] N/A * Mi Quintana - 01/07/2022 2:41 PM EDT Patient unavailable for EEG. Nurse to page when ready. * Deja Kelley RCP - 01/07/2022 1:56 PM EDT Respiratory Care Mechanical Ventilation Note Protocol: AMV SBT: Yes SPO2 Goal: Saturation Goal: > 92% Vent Mode: Volume Control Circuit: HME Settings: Tidal Volume Set: 470 Resp. Rate Set: 10 Set PEEP (cm H2O): 5 Set FiO2: 30 % VT/K Inspiratory Time: 0.75 Sec(s) Measurements: Tidal Volume Measured Exp.: 699 Resp: 19 Peak Inspiratory Pressure: 9 Mean Airway Pressure (cm H2O): 6 Minute Ventilation Total Exhaled (L/min): 12.4 Plateau Pressure (cm H2O): 18 SpO2: 100 % ETCO2 (mmHg): 41 mmHg Airway: Size: 7.5 ETT Depth: 21 cm @ teeth/gums. Medications: None Lung sounds: Clear and Diminished Assessment/Plan: Pt received intubated and on VCV. 1107: Placed in PSV, but had to return to VCV d/t low RR. 1320: Per order, pt extubated to NC. Deja Kelley RCP * Joelle Dickey RN - 01/07/2022 6:57 AM EDT Pt much improved from initial assessment, see flowsheets. Some purposeful movements noted. Sutures placed to bilat wrist lacerations/dsg applied. Pt son at bedside, questions answered. Pt in c spine prec per order. Will continue to monitor for changes in pt status. * Amador Toledo MD - 01/07/2022 6:55 AM EDT ICU Progress Note Patient info: Name: Aziza Fields : 1960 PCP: Madhavi Smith APRN PCP phone number: [phone] Date of Admission: 01/06/2022 ( Hospital Day 1 day ) Attending:David Valdivia MD ID:Aziza Fields is a 61 y.o. female with PMH of MDD, OFELIA, migraines who presents with overdose in attempted suicide. ?? 24 Hour Events/Subjective: Yesterday: --Transferred and continued on sedation. Overnight: --Poison control advised just supportive care. Became agitated and thrashing requiring propofol. Subsequenty required levo. Surgery repaired b/l lacerations and advised c collar percautions with CThead and neck. This AM: --Patient initially unresponsive to pain RAAS -5, after stopping propofol following commands and opens eyes to voice. Intubated. Vasoactive & Sedating Medications: Infusions: Continuous Infusions: ??? NORepinephrine Stopped (01/07/22 1050) ??? propofoL Stopped (01/07/22 09) Ventilator Settings: Mode: Servo U Ventilator Mode: (S) PS/CPAP, SET RR: TV: PEEP: FiO2: VARIABLES Tidal Volume Set: 470 Set PEEP (cm H2O): 5 Set FiO2: 21 % PATIENT RR: PIP: Pplateau: SpO2: OUTPUT Resp: 11 Peak Inspiratory Pressure: 15 Plateau Pressure (cm H2O): 18 SpO2: 98 % ABG (Arterial Blood Gas) Recent Labs 01/07/22 0131 01/06/22 2344 PHART 7.42 -- [id number] 27* -- PO2ART 119* -- CQK1EBQ 17.0* -- LACTATEVEN 3.0* 3.7* PDR2YNT 25 -- PFRATIOART2 476 -- Objective: Vitals Last value Range last 24 hrs Temperature Temp: 36.8 ??C (98.24 ??F) Temp: [36.8 ??C (98.24 ??F)-37.4 ??C (99.32 ??F)] Heart Rate Heart Rate: 59 Heart Rate: [50-80] Blood Pressure BP: 108/61 BP: (103-136)/(53-75) Art Line BP BP (Arterial Line): -- MAP (NBP): [71 mmHg-93 mmHg] Respiratory Rate Resp: 11 Resp: [11-19] SpO2 SpO2: 98 % SpO2: [56 %-100 %] Oxygen Delivery Oxygen Therapy O2 Device: Ventilator FiO2 (%): 21 % Intake/Output Summary (Last 24 hours) at 01/07/2022 1121 Last data filed at 01/07/2022 1000 Gross per 24 hour Intake 624.81 ml Output 625 ml Net -0.19 ml Patient Vitals for the past 168 hrs: Weight 01/06/22 2300 46.8 kg (103 lb 2.8 oz) Admit wt: 46.8 kg Physical Exam: Gen: in bed in NAD. RASS 1 HEENT: anicteric, EOMI intact CV: RRR, no murmurs/rubs/gallops Resp: CTAB, no crackles/wheezes/ronchi, normal work of breathing Abd: normal bowel sounds, soft, non-tender to palpation, no rebound or guarding Ext: 2+ distal pulses, no pedal edema Neuro: no focal deficits noted, CN II-XII grossly intact, moves all extremities spontaneously, follows commands Psych: cooperative. Skin: b/l skin lacerations now repaired. Left wound from IO line at OSH. Labs: Recent Labs 01/07/22 0019 WBC 6.9 HGB 10.7* HCT 32.2* PLATELET 195 MCV 100.0* Recent Labs 01/07/22 001 NA 140 CL 107 CO2 16* K 4.3 MAGNESIUM 0.64* PHOS 3.0 CALCIUM 8.2* BUN 12 CREATININE 0.78 LFTs Recent Labs 01/07/22 001 PROT 5.3* ALBUMIN 3.4 AST Not Perf ALT 70* ALKPHOS 39 BILITOT 0.2 Coags Recent Labs 01/07/22 001 INR 1.1 PT 12.4 PTT 25 Recent Labs 01/07/22 0131 01/06/22 2344 PHART 7.42 -- [id number] 27* -- PO2ART 119* -- FFI7DEA 17.0* -- LACTATEVEN 3.0* 3.7* [id number] 25 -- PFRATIOART2 476 -- VBG (Venous Blood Gas) Recent Labs 01/07/221 01/06/22 2344 PHVEN -- 7.28* DFQ2TLU -- 40* PO2VEN -- 40 XEP3FNA -- 18.5 LACTATEVEN 3.0* 3.7* Imaging: -CT head/cervical spine no acute findings -Cxray KUB no acute findings Medications Scheduled Meds: ??? chlorhexidine 15 mL Oral BID ??? ampicillin-sulbactam 1.5 g Intravenous Q6H ??? enoxaparin 30 mg Subcutaneous Nightly ??? famotidine 20 mg Per NG tube BID Continuous Infusions: ??? NORepinephrine Stopped (01/07/22 1050) ??? propofoL Stopped (01/07/22 0929) PRN Meds:.propofoL AND propofoL, fentaNYL (PF), diphth, pertus(acell), tetanus ?? Assessment/Plan: Aziza L Laclair-Petit is a 61 y.o. female with PMH of MDD, OFELIA, migraines who presents with overdosein attempted suicide. ?? This morning patient following commands and making appropriate eye contact after weaning propofol. pH Improved and mental status while waxing and waning seems to be improving with reduction of sedation. Continue supportive therapy for mental status and acid base derangements with plan to withdraw sedation and mechanical ventilation if tolerated. Failed SBT this morning likely due to waxing waning mental status. Lacerations now repaired with unasyn/tetanus vaccine to prevent possible infection. Patient will need 1:1 sitting and psychiatric management due to suicide attempt. 01/07 -3 days unasyn 1.5 q6 -Tetanus booster -Discontinue sedation -SBT failed, continue supportive care and PS as tolerated -Trauma surgery will determine when cervical collar may be remoed -1:1 sitter -Psychiatry consult Neuro/Psych: #AMS 2/2 toxic ingestion predominantly sedating medications -improving #MDD, OFELIA, h/o multiple suicide attempts - D/c sedation - 1:1 sitter, Psychiatry consult?? - holding home meds: on ativan, atarax, vilazodone, zolpidem, buspirone, lamictal per chart review Renal/: #Mixed AGMA + NAGMA #Acute toxic ingestion of unknown substances - d/c eduardo, monitor UOP - family brought in pill bottles -none other than home med list - AG likely 2/2 EtOH and lactate, will continue to monitor - no osmolal gap, low suspicion for toxic alcohol ingestion ?? CV: #bradycardia #hypotension, likely related to sedation - Off levo - HR in the 60s here - ECG reassuring with intervals in high normal range - discussed the case with poison control, no drugs that contribute to bradycardia - Meds brought in the same as those on home med list Pulm: - Intubated for airway protection, on minimal vent settings -Sedation weaned in preparation for SBT/Extubation, this AM failed SBT ?? MSK: #Bilateral wrist lacerations - Surgery repaired, --unasyn 1.5g q6 x3 days --Tetanus booster - No active bleeding, continue to monitor ?? ID: - blood culture obtained x1 but low suspicion for infection - Tdap ordered ?? Heme: #Anemia - Hgb 10.7 at OSH, 10.8 here, continue to monitor ?? FEN/GI: #Nutrition - NPO, give meds - Continue NPO while plan to extubate Endo: - RAGHU ?? PPx: F: NGT, NPO A: n/a S: d/c propofol gtt T: lovenox HOB >30 U: famotidine 20mg G: glucose <180 L: NGT, ETT, 2 PIV Associated attestation - David Valdivia MD - 01/07/2022 4:15 PM EDT MICU ATTENDING ATTESTATION NOTE The patient was seen in conjunction with Dr. Toledo, the resident physician and the MICU Blue team.I have independently performed the gresham portions of the history and physical exam. I have reviewed the nursing notes, vital signs, and all diagnostic studies personally including labs, imaging studiesand EKGs. I have discussed the details of the case with the resident and agree with the assessment and plan as described in the resident note above unless noted otherwise below. IS PATIENT CRITICALLY ILL ? Is there a high potential of sudden, clinically significant, or life threatening deterioration? Yes Is there a need for direct personal assessment and management to treat/prevent multiple vital organfailure/deterioration? Yes If this patient is not critically ill, I certify the patient requires continued in-patient hospitalization for [] PATIENT IS CRITICALLY ILL WITH THESE DIAGNOSES BEING MANAGED BY [facility] TEAM: Acidosis Metabolic Encephalopathy Acute Intubated for airway protection secondary to AMS Other suicidal ingestion Respiratory Failure Acute with hypoxia I personally performed 30 minutes of aggregate critical care time exclusive of procedures and teaching. This includes time spent during direct patient evaluation and reassessment, interpreting diagnostic tests, directing life and/or organ supporting interventions and documentation on the unit. David Valdivia MD * Jeffry Peters, [facility] - 01/07/2022 12:03 AM EDT 61F with long history of depression. Made her coffee this morning, then about 6 hours before they found her. Pt initially had profound acidosis and hypothermia. No protocol ordered at this time, using AMV protocol as guide. Vent Settings: Ventilator Mode: VC Tidal Volume Set: 470 Resp Rate Set: (S) 16 (End tidal at 22, rate decreased) PEEP Set: 5 FiO2: 21 % Ventilator Measurements: Resp: 16 Vt Exhaled: 471 PIP: 19 MAP: 8.3 Plateau Press: 18 Ve: 8.4 PEEP: SpO2: 100 % EtCO2: 25 mmHg Airway: 7.0 @ 21 cm at the Teeth. Skin Integrity: WDL small scabbing appreciated on top lip Breath Sounds: BBS present and diminished no adventitious BS appreciated. Secretions: minimal Assessment / Events / Plan of the Day: Pt arrived on MV and [place] [facility] [place] without issue.ETT secured again with ETT/Biteblock 2/2 agitation and biting the tube. Pt was measured and found to be on 7ml/kg, post VBG she was changed to 8ml/kg 470 and her rate increased to compensate for her acidemia. Last AB 7.42/27/119/17/-7.5/97% on 25%. Pts rate has since been weaned to a rate of 16. Trending EtCo2 Jeffry Peters RCP * BackerJose Juan MD - 01/06/2022 7:12 PM EDT [facility] [place]ION NOTE SECTION OF PULMONARY & CRITICAL CARE MEDICINE History of Present Illness: Patient seen and examined on admission to the ICU. Aziza Fields is a 61 y.o. year old womanadmitted to our MICU in transfer from [facility] with attempted suicide. Ms. Fields has a history of depression and eating disorder, IBS and migraines. Within the last day or so she was instructed to presented to the ED by a member of her outpatient psychiatry teamdue to suicidal ideations. She did not unfortunately. Today her left the home (having left Aziza in her usual state of health) and returned at an undisclosed time later. He could not find her for upwards of 6 hours prior to finding her in a shed on their property with lacerations to the bilateral wrists and a variety of pills found around her. The identity of these pills are unknown exceptfor Gabapentin 800 mg which was confirmed. Unknown amount of medications ingested. She was noted sendy hypothermic at 28.2C with a metabolic acidosis and encephalopathy with in-tact pulses. She was subsequently intubated with a ABG pre-induction of 7.16/51/386/18.6, lactate 2.9. Other known labs were an anion gap of 7, ASA of 3.5, negative tylenol level and EtOH of 155. Hb 10, WBC 4, plt 179. Shewas also noted to be hypotensive and bradycardic and ultimately started on Norepinephrine at 10 mcgat 3L NS boluses. She was provided bicarbonate, narcan and glucagon. It's unclear what response shehad to these agents but was not felt to have a notable response to narcan at least. There was improvement of her HR to the 60's at the time of transfer request. Her ventilator support was noted to beminimal and poison control was contacted. Upon arrival [place] [facility], intubated, off sedation, agitated with nonpurposeful movements/not following commands, quickly weaned off norepinephrine, on minimal vent support. Review of Systems: A 12 point ROS was negative aside from as listed in the HPI. Past Medical/Surgical History: Patient Active Problem List Diagnosis Code ??? MDD (major depressive disorder), recurrent episode, severe F33.2 ??? Major depressive disorder, recurrent episode, severe, without mention of psychotic behavior F33.2 ??? Generalized anxiety disorder F41.1 ??? Pelvic pressure syndrome N94.89 ??? Dyspareunia [id number] ??? History of menorrhagia Z87.42 ??? Alopecia [...] and without status migrainosus, not intractable G43.009 ?? Allergies: Allergies Allergen Reactions ??? Latex Hives ??? Sulfa (Sulfonamide Antibiotics) Hives ??? Trazodone Other (See Comments) headache ??? Lactose Intolerance [Lactase] Diarrhea Objective: Patient Vitals for the past 24 hrs: Temp Heart Rate From SP02 Pulse Resp BP SpO2 FiO2 (%) O2 Device 01/06/22 2300 37.3 ??C (99.1 ??F) 80 bpm 80 16 136/75 99 % 30 % Ventilator General: Intubated, non-purposeful activity Pulmonary/Chest: Bilateral breath sounds Cardiovascular: Normal S1/S2, regular rate and rhythm Abdomen: Soft, nontender Extremities: Thin, no edema, deep/irregular bilateral lacerations to the R>L anterior forearms which are nonbleeding Psychiatric: N/a Neurologic: pupils dilated/sluggish, eyes periodically open, does not blink to threat, does not track the nonpurposeful thrashing of upper and lower extremities and pelvis (not grossly suggestive of seizure), breathing spontaneously, bilateral Briggs's and nonsustained clonus at the wrist, toes are mute without clonus Diagnostics: None Ventilator: Volume control Assessment: Aziza Fields is a 61 y.o. woman admitted to the MICU from [facility] with an intentional suicide attempt. She was found down by family with in- tact pulses, hypothermic, hypotensive, bradycardic and encephalopathic. Last seen normal at least 6 hours prior to being found by her .Lacerations to the bilateral wrists and various pill types found around her (the only identified pill of these was Gabapentin; unknown pill count/# missing). Intubated for airway protection with a metabolic acidosis and respiratory alkalosis, AG of 10 and ASA level of 3.5. Neg tylenol and elevated EtOH. Upon arrival to [facility] she is euthermic, HR 50-60's, and weaning off norepinephrine on minimal ventilatory support. Her neurologic exam is as noted above with nonpurposeful activity. We do not yet have a full understanding of the extent of her ingestions. She was started on low-dose propofol for agitation and nonpurposeful thrashing in the bed requiring restraints. Admission labs are being repeated/obtained. Continue supportive care. Plan: ??? Surgical consult for anterior forearm lacerations ??? Vasopressor support to maintain MAP over 65 ??? CXR/AXR to confirm tube placements ??? Full admission labs pending -attention to repeat AG, osm gap and drug screens ??? Will touch base with poison control (previously contacted) ??? Will call family to bring in all pill vials so we may do pill count ??? Repeat ECG - monitor intervals IS PATIENT CRITICALLY ILL? Is there a high potential of sudden, clinically significant, or life threatening deterioration? Yes Is there a need for direct personal assessment and management to treat/prevent multiple vital organfailure/deterioration? Yes PATIENT IS CRITICALLY ILL WITH THESE DIAGNOSES BEING MANAGED BY [facility]CS TEAM: ??? Suicide attempt ??? Poly-medication overdose ??? Wrist lacerations ??? Acute toxic/metabolic encephalopathy ??? Hypothermia ??? Shock, unclear etiology ??? Bradycardia I personally performed 45 minutes of aggregate critical care time exclusive of procedures and teaching. This includes time spent during direct patient evaluation and reassessment, interpreting diagnostic tests, directing life and/or organ supporting interventions and documentation on the unit. Jose Juan Aparicio MD, 01/06/2022, 7:12 PM MICU Attending Pulmonary & Critical Care Pager: [phone] documented in this encounter H&P Notes * Tamela Polk MD - 01/09/2022 12:36 PM EDT Hospital Medicine Admission History and Physical Patient Name: Aziza Fields Service: Hospital Medicine Chief Complaint: Transfer from ICU, suicide attempt History of Present Illness Aziza Fields is a 61 y.o. female with a PMH significant MDD, OFELIA, and migraines who was admitted to the ICU for suicide attempt and serotonin syndrome, now HDS transferring to Hospital Medicine. ?? History obtained per chart review and discussion with her at bedside. The pt has a hx of suicide attempts and the events leading up to her current admission was her third known attempt. He notes that her most recent prior attempt was in 2014 and she has followed with psychiatry for years. He notes that during a recent psych appt, the pt had mentioned about wanting tocommit suicide but was not able to verbalized a plan. Prior attempts likewise have been medication OD but have been increasing in severity and this attempt was the only attempt where the pt also cut her wrists. When the pt's went to run errands, he was unable to find the pt upon returning and eventually called the police. She was then found in a shed. Upon EMS arrival, she??was noted to be hypothermic to 28.2C, bradycardic, hypotensive, and multiplepills were found around her with 2 significant lacerations to her bl wrists. She was intubated: VBGshowed pH 7.16, salicylate 3.5, ETOH 155. She was given narcan, glucagon, bicarbonate. Was started on levophed. Per [facility] H&P, the pt has rx for naproxen 500 mg, prednisone 20 mg, lamotrigine 200 mg, mirtazapine 30 mg, zolpidem 10 mg, buspirone 30 mg, atarax 10 mg, ativan 1 mg, spironolactone 50 mg and vilazodone 40 mg. One pill found at the scene was gabapentin. ?? Based on her presentation and rigidity, she was thought to have serotonin syndrome. Ativan prn was started. MRI brain and EEG negative CK uptrending without ZECHARIAH, received IVF. She was successfully extubated and is on 5LNC. Remains encephalopathic and does not follow any commands. She was started on unasyn for c/f aspiration PNA. Review of Systems: As per HPI Limited due to pt's mental status Past Medical History/Problem List Patient Active Problem List Diagnosis Code ??? MDD (major depressive disorder), recurrent episode, severe F33.2 ??? Major depressive disorder, recurrent episode, severe, without mention of psychotic behavior F33.2 ??? Generalized anxiety disorder F41.1 ??? Pelvic pressure syndrome N94.89 ??? Dyspareunia [id number] ??? History of menorrhagia Z87.42 ??? Alopecia [...] not intractable G43.009 ??? Overdose T50.901A Past Medical History: Diagnosis Date ??? Anxiety ??? Depression ??? Dyspareunia ??? Irritable bowel syndrome ??? Pelvic pain Past Surgical History: Procedure Laterality Date ??? INGUINAL HERNIA REPAIR Right 2009 ??? LAPAROSCOPY 1996 scar tissue/ adhesions ??? PRO ELECTROCONVULSIVE THERAPY 08/17/2013 ECT performed by Brandie Rios MD at [facility] OR ??? PRO ELECTROCONVULSIVE THERAPY 08/20/2013 ECT performed by Jeremy Condon MD at [facility] OR ??? PRO ELECTROCONVULSIVE THERAPY 08/21/2013 ECT performed by Mitchell Bunch MD at [facility] OR ??? PRO ELECTROCONVULSIVE THERAPY 08/23/2013 ECT performed by Brandie Rios MD at [facility] OR ??? PRO ELECTROCONVULSIVE THERAPY 08/30/2013 ECT performed by Jeremy Condon MD at [facility] OR ??? PRO ELECTROCONVULSIVE THERAPY 09/06/2013 ECT performed by Jeremy Condon MD at [facility] OR ??? PRO ELECTROCONVULSIVE THERAPY 09/27/2013 ECT performed by Jeremy Condon MD at [facility] OR ??? PRO ELECTROCONVULSIVE THERAPY 10/11/2013 ECT performed by Jeremy Condon MD at [facility] OR ??? PRO ELECTROCONVULSIVE THERAPY 10/25/2013 ECT performed by Robert Gabriel MD at [facility] OR ??? PRO ELECTROCONVULSIVE THERAPY 11/29/2013 ECT performed by João Pratt MD at [facility] OR ??? PRO ELECTROCONVULSIVE THERAPY 12/11/2013 ECT performed by Mick De Leon MD at [facility] OR ??? PRO ELECTROCONVULSIVE THERAPY 12/27/2013 ECT performed by Brandie Rios MD at [facility] OR Meds: Current Facility-Administered Medications on File Prior to Encounter Medication Dose Route Frequency Provider Last Rate Last Admin ??? lactated ringers infusion Continuous PRN Kasey Ames MD New Bag at 12/11/13 0805 Current Outpatient Medications on File Prior to Encounter Medication Sig Dispense Refill ??? spironolactone (ALDACTONE) 50 mg Tablet TAKE THREE TABLETS BY MOUTH EVERY DAY 180 tablet 3 ??? LORazepam (Ativan) 1 mg Tablet ??? cholecalciferol, Vitamin D3, 125 mcg (5,000 [...] Sleep. ??? busPIRone (BUSPAR) 30 mg Tablet ??? lamoTRIgine (LAMICTAL) 100 mg Tablet Take 200 mg by mouth daily. ??? mirtazapine (REMERON) 30 mg tablet Take 1 tablet by mouth nightly. Indications: Major Depressive Disorder 30 tablet 0 Allergies: Allergies Allergen Reactions ??? Latex Hives ??? Sulfa (Sulfonamide Antibiotics) Hives ??? Trazodone Other (See Comments) headache ??? Lactose Intolerance [Lactase] Diarrhea Family History: No family history on file. Social History: Social History Socioeconomic History ??? Marital status: Spouse name: Not on file ??? Number of children: Not on file ??? Years of education: Not on file ??? Highest education level: Not on file Occupational History ??? Not on file Tobacco Use ??? Smoking status: Never Smoker ??? Smokeless tobacco: Never Used Vaping Use ??? Vaping Use: Never used Substance and Sexual Activity ??? Alcohol use: Yes Alcohol/week: 1.0 standard drink Types: 1 Glasses of wine per week Comment: interminttent ??? Drug use: No ??? Sexual activity: Yes Partners: Male control/protection: Post-menopausal, Surgical Other Topics Concern ??? Not on file Social History Narrative ??? Not on file Social Determinants of Health Financial Resource Strain: Not on file Food Insecurity: Not on file Transportation Needs: Not on file Physical Activity: Not on file Housing Stability: Not on file Vitals: Last value Range last 24 hrs Temperature Temp: 37.6 ??C (99.68 ??F) Temp: [37.3 ??C (99.14 ??F)-37.7 ??C (99.86 ??F)] Heart Rate Heart Rate: 81 Heart Rate: [69-86] Blood Pressure BP: 145/74 BP: (100-149)/(53-74) Respiratory Rate Resp: 22 Resp: [18-28] SpO2 SpO2: 90 % SpO2: [85 %-99 %] I/O last 3 completed shifts: In: 2950 [I.V.:2896; IV Piggyback:54] Out: 2340 [Urine:2340] Examination: Gen: in bed in NAD. C-collar in place HEENT: sclera anicteric, conjunctiva nl CV: RRR, no murmurs/rubs/gallops Resp: CTAB, no crackles/wheezes/ronchi, normal work of breathing Abd: normal bowel sounds, soft, non-tender to palpation, no guarding Ext: 2+ distal pulses, no pedal edema Neuro: Legs flexed at knees, feet in plantarflexion. Rigidity R>L (per ICU, improved compared ). 2-3 myoclonic jerks in lower extremities. Opens eyes spontaneously and to voice but does not follow commands or answer questions Skin: b/l wrist lacerations s/p sutures. Some mild oozing of blood from R wrist, wrapped in dressing. Left wound from IO line at OSH with dressing c/d/i Laboratory: Recent Labs 01/09/22 0158 01/08/22 0142 01/07/22 0019 WBC 8.4 6.9 6.9 HGB 9.7* 9.9* 10.7* HCT 28.0* 29.6* 32.2* PLATELET 141* 145 195 Recent Labs 01/09/22 1340 01/09/22 0158 01/08/22 0142 01/07/22 1410 NA -- 139 140 138 K 3.9 3.2* 4.5 4.3 CL -- 104 106 105 CO2 -- 24 22 20* BUN -- 13 12 13 CREATININE -- 0.51* 0.57* 0.74 Recent Labs 01/07/22 0019 AST Not Perf ALT 70* ALKPHOS 39 BILITOT 0.2 Recent Labs 01/09/22 0158 01/08/22 0142 01/07/22 1410 01/07/22 0019 CALCIUM 8.4* 8.5 8.6 8.2* PHOS -- -- 3.7 3.0 Imaging: Results for orders placed or performed during the hospital encounter of 01/06/22 XR Chest One View (Exam End: 01/07/2022 1:35 AM) Impression * Endotracheal tube 10 cm above the emmanuel. Please advance. * Enteric tube courses below the diaphragm and beyond the [id number]. * Minimal central pulmonary vascular congestion. Thank you for letting us participate in the care of this patient. If you are a health care provider and have any questions regarding this report, please contact the number below. For patients who have questions please contact the health plant health care technician that requested your imaging first. Electronically signed by: Bob Escalante MD, [facility] ([phone]), at 01/07/2022 2:06 AM XR Abdomen 1 view (Generic) (Exam End: 01/07/2022 1:35 AM) Impression Enteric tube terminates in the gastric antrum. Thank you for letting us participate in the care of this patient. If you are a health care provider and have any questions regarding this report, please contact the number below. For patients who have questions please contact the health plant health care technician that requested your imaging first. Electronically signed by: Bob Escalante MD, [facility] ([phone]), at 01/07/2022 2:07 AM XR Pelvis (Generic) (Exam End: 01/07/2022 7:10 AM) Impression No acute fracture or dislocation. Thank you for letting us participate in the care of this patient. If you are a health care provider and have any questions regarding this report, please contact the number below. For patients who have questions please contact the health plant health care technician that requested your imaging first. Electronically signed by: Bob Escalante MD, [facility] ([phone]), at 01/07/2022 8:[address] Head wo Contrast (Generic) (Exam End: 01/07/2022 5:07 AM) Impression No acute intracranial pathology. Preliminary report signed by: Andrea Machuca at 01/07/2022 5:16 AM I have personally reviewed the image(s) and the resident's interpretation and agree with the findings, Bob Escalante MD at 01/07/2022 5:23 AM Thank you for letting us participate in the care of this patient. If you are a health care provider and have any questions regarding this report, please contact the number below. For patients who have questions please contact the health plant health care technician that requested your imaging first. Electronically signed by: Bob Escalante MD, [facility] ([phone]), at 01/07/2022 5:[address] Cervical Spine wo Contrast (Exam End: 01/07/2022 5:07 AM) Impression * No acute fracture or dislocation. * Minimal C3-C4, C4-C5 and C5-C6 retrolistheses. * Multilevel degenerative changes as detailed above. Preliminary report signed by: Andrea Machuca at 01/07/2022 5:23 AM I have personally reviewed the image(s) and the resident's interpretation and agree with the findings, Bob Escalante MD at 01/07/2022 5:28 AM Thank you for letting us participate in the care of this patient. If you are a health care provider and have any questions regarding this report, please contact the number below. For patients who have questions please contact the health plant health care technician that requested your imaging first. Electronically signed by: Bob Escalante MD, [facility] ([phone]), at 01/07/2022 5:28 AM MRI Brain wo Contrast (Exam End: 01/07/2022 4:18 PM) Impression No evidence for acute process. Thank you for letting us participate in the care of this patient. If you are a health care provider and have any questions regarding this report, please contact the number below. For patients who have questions please contact the health plant health care technician that requested your imaging first. Chest One View (Exam End: 01/08/2022 6:53 AM) Impression New bibasilar patchy airspace opacities with total opacification of right middle lobe acute represent aspiration pneumonitis. Thank you for letting us participate in the care of this patient. If you are a health care provider and have any questions regarding this report, please contact the number below. For patients who have questions please contact the health plant health care technician that requested your imaging first. Electronically signed by: Bob Escalante MD, [facility] ([phone]), at 01/08/2022 6:57 AM Microbiology: Microbiology Results (Last 30 days) Procedure Component Value Units Date/Time Blood culture [[id number]] Collected: 01/07/22 0019 Lab Status: Preliminary result Specimen: Blood Updated: 01/09/22 0701 Blood Culture No growth at 2 days. COVID-19 PCR [[id number]] Collected: 01/06/22 2359 Lab Status: Final result Specimen: Nasopharyngeal Swab Updated: 01/07/22 0324 SARS-CoV-2 RNA PCR Not Detected Comment: This result should be interpreted in combination with the clinical observations, patient history and epidemiological information. For testing of asymptomatic individuals, assay performance characteristics and clinical utility have not been evaluated. Testing for SARS-CoV-2 (Severe acute respiratory syndrome coronavirus 2, formerly known as 2019 novel coronavirus or 2019-nCoV) to aid in the diagnosis of COVID-19 is performed using the Simplexa COVID-19 Direct Assay by [employer] as authorized by the FDA issued Emergency Use Authorization (EUA). This assay is intended for In-vitro Diagnostic (IVD) use with nasopharyngeal swabs collected from individuals meeting the CDC criteria for testing. The assay is performed based on the instructions for use and additional guidance provided by the FDA. Testing is performed in the Microbiology Laboratory within the Department of Pathology and Laboratory Medicine at [facility], certified under the Clinical Laboratory Improvement Amendments of 1988 (CLIA), 42 U.S.C. section 263a, to perform high complexity tests. Assay performance has been verified according to clinical laboratory regulatory requirements. Test results are provided above. A result of Not Detected indicates that the viral RNA target is not present but does not preclude SARS-CoV-2 infection. False negative results may occur if a specimen is improperly collected, transported or handled; if amplification inhibitors are present; or if inadequate numbers of viral particles are present in the specimen. A result of Detected suggests a current or recent infection and the patient is presumed to be infected. Positive and negative predictive values for this test are highly dependent on disease prevalence. A result of Invalid indicates the inability to conclusively determine the presence or absence of SARS-CoV-2 RNA in the sample which can be due to a variety of factors. Recollection is recommended in the case of an invalid result. CDC COVID-19 criteria for testing on human specimens and clinical management guidance information are available at the CDC Coronavirus Disease 2019 (COVID-19) webpage under Information for Healthcare Professionals (https://www.cdc.gov/coronavirus/2019-ncov/hcp/index.html). Additional information about this and other EUA tests can be found in provider and patient fact sheets at the following FDA website: https://www.fda.gov/medical-devices/kclcslrkjyd-fguqqgn-2775-exkkd-92-daseimrjm- zlr-sqchhhbrajqhpa-wkhixdj-devices/gtmja-yjvdzvirmbx-hiud SARS-CoV-2 Source [employer] LIBRARY ASSISTANT Swab ASSESSMENT: Aziza Fields??is a??61 y.o.??female with PMH of MDD, OFELIA, migraines who was admitted to theMICU for overdose in attempted suicide req intubation for airway protection, now HDS transferred to. ?? Patient remains encephalopathic and does not answer questions or follow commands. She has reportedly had agitation responsive to benzodiazepenes. Given clonus and tetany as well as hallucinations andagitation with overdose on seretonergic drugs, the leading theory is seretonin syndrome despite lack of tachycardia, HTN, hyperthermia, diaphoresis. She has been given prn benzos so far. However, also note that w/ an uptrending CK, NMS should be on the ddx as well brent given her rigidity. Tx would be the same as supportive and w/ benzos. Unlikely stroke/seizure given normal MRI and EEG without anyepileptiform activity but did note moderate global cerebral dysfunction. If her mentation does not improve, will need to further eval w/ 24h EEG and engage neurology. Respiratory status is improving - RML collapse previously likely due to mucus plugging / aspirationdue to poor mental status. Responding to aggressive pulmonary hygiene and is now on 5LNC post extubation. C/w unasyn for 5d total course for asp PNA. ?? Patient will need 1:1 sitting and psychiatric management due to suicide attempt. Note that the pt'scode status is recorded as DNR/DNI and upon conversation w/ her /DPOA, he notes that this was based on an AD that the pt filled out approximately 1 mo ago. He notes that they had prior discussions re this but that it's unclear if she was in a depressive state of mind at the time of this AD. Will engage psychiatry for recommendations given her above. ?? Plan: #AMS 2/2 toxic ingestion predominantly sedating medications and ?serotonin syndrome vs NMS - Ativan 0.5mg q6h prn agitation - MRI brain negative - low threshold to re-image (?hypoxic brain injury) and engage Neuro and poison control if not improving ?? #MDD, OFELIA, h/o multiple suicide attempts - 1:1 sitter -??holding??home meds:??on ativan, atarax, vilazodone, zolpidem, buspirone, lamictal - psych consult brent re code status (see assessment for details) #Right middle lobe collapse likely mucus plugging #Possible aspiration pneumonia - Unasyn 3g 01/08-01/12 ?? -Position on left side when possible, elevate head of bed -reevaluate for lasix #Bilateral wrist lacerations: s/p sutures - Surgery repaired - on unasyn as above - tetanus 01/07/22 - No active bleeding, continue to monitor ?? #Cspine precautions - Precautions per trauma surgery: assessment limited by encephalopathy #macrocytic anemia - Continue to monitor - no signs of active bleeding #Other - DVT ppx: lovenox - GI ppx: H2B - Diet: NPO (pending improvement in mentation) - Dispo: pending clinical course - DPOA: Tunde Polk MD #[id number] Associated attestation - Francisco Lynne DO - 01/09/2022 5:39 PM EDT Attending Attestation Please see Dr. Polk's note for details of the patient history of presentation and data. I have discussed, reviewed and agree with the documented History, Physical findings, Assessment and Plan of care. I have examined the patient myself and personally reviewed all studies. In addition, I certify thatI am a [facility] credentialed attending provider with admitting privileges and that the patient meets or has met medical necessity to require an inpatient IPI level of care meeting a minimum of two midnights or is on the [facility] inpatient only procedure list (status C) due to: monitoring of fluid status given an inability to regulate fluid balance and the need for administration or restriction of fluids and acute respiratory compromise and/or hypoxia requiring assessment every 4 hours and the ability to respond immediately to the patient's need Francisco Lynne DO Hospital Medicine 01/09/2022 5:39 PM * Telma Cameron MD - 01/06/2022 7:22 PM EDT Images from the original note were not included. Critical Care - Admission Note History of Present Illness: Aziza Fields is a 61 y.o. female with PMH of MDD, OFELIA, migraines who presents with overdosein attempted suicide. Story is obtained from chart review and son who arrived at the bedside. This appears to be the patient's 4th suicide attempt, all with increasing severity. All prior attempts have been also with medication overdose (no cutting) and they seem to be escalating in severity. Initially, she would overdose in the house but has been making it progressively more difficult to find her. Son reports that step-father left to run some errands and, upon his return, was unable to find Aziza. He called a friendand, eventually, the police in order to find her. They were unable to find her until a hgxgjs-svb-snycja dog was brought to the home where they found her down in the shed. Son is unaware over what period of time this occurred but there are some reports that it took over 6 hours in order to find her. Upon EMS arrival, she was noted to be hypothermic to 28.2C, bradycardic, hypotensive, multiple pills around her and with 2 significant lacerations to both of her wrists. She was intubated for airway protection - gas at the time remarkable for pH 7.16 and bicarb of 18. Found to be salicylate level 3.5 and ETOH 155. Received narcan, glucagon and bicarbonate with unknown effects. Required levo 10 and HR improved to the 60s. Wrists not sutured yet - Hgb noted to be 10.8. One of the pills was identified to be gabapentin 100mg. Poison control was contacted. Upon chart review, pt has prescriptions for naproxen 500 mg, prednisone 20 mg, lamotrigine 200 mg, mirtazapine 30 mg, zolpidem 10 mg, buspirone 30 mg, atarax 10 mg, ativan 1 mg, spironolactone 50 mg , and vilazodone 40 mg (an SSRI). Most are noted. [place] [facility] [place] was not on sedation and on levo gtt at 12. She was weaned down and maintained good MAPs. Unfortunately, began to thrash around and was started on propofol with subsequent increase of her pressor requirement. Review of Systems: Unable to perform due to pt status Past Medical Surgery: Past Medical History: Diagnosis Date ??? Anxiety ??? Depression ??? Dyspareunia ??? Irritable bowel syndrome ??? Pelvic pain Past and Surgical History: Past Surgical History: Procedure Laterality Date ??? INGUINAL HERNIA REPAIR Right 2009 ??? LAPAROSCOPY 1996 scar tissue/ adhesions ??? PRO ELECTROCONVULSIVE THERAPY 08/17/2013 ECT performed by Brandie Rios MD at [facility] OR ??? PRO ELECTROCONVULSIVE THERAPY 08/20/2013 ECT performed by Jeremy Condon MD at [facility] OR ??? PRO ELECTROCONVULSIVE THERAPY 08/21/2013 ECT performed by Mitchell Bunch MD at [facility] OR ??? PRO ELECTROCONVULSIVE THERAPY 08/23/2013 ECT performed by Brandie Rios MD at [facility] OR ??? PRO ELECTROCONVULSIVE THERAPY 08/30/2013 ECT performed by Jeremy Condon MD at [facility] OR ??? PRO ELECTROCONVULSIVE THERAPY 09/06/2013 ECT performed by Jeremy Condon MD at [facility] OR ??? PRO ELECTROCONVULSIVE THERAPY 09/27/2013 ECT performed by Jeremy Condon MD at [facility] OR ??? PRO ELECTROCONVULSIVE THERAPY 10/11/2013 ECT performed by Jeremy Condon MD at [facility] OR ??? PRO ELECTROCONVULSIVE THERAPY 10/25/2013 ECT performed by Robert Gabriel MD at [facility] OR ??? PRO ELECTROCONVULSIVE THERAPY 11/29/2013 ECT performed by João Pratt MD at [facility] OR ??? PRO ELECTROCONVULSIVE THERAPY 12/11/2013 ECT performed by Mick De Leon MD at [facility] OR ??? PRO ELECTROCONVULSIVE THERAPY 12/27/2013 ECT performed by Brandie Rios MD at [facility] OR Prior To Admission Medications: Medications Prior to Admission Medication Sig Dispense Refill Last Dose ??? spironolactone (ALDACTONE) 50 mg Tablet TAKE THREE TABLETS BY MOUTH EVERY DAY 180 tablet 3 ??? LORazepam (Ativan) 1 mg Tablet ??? cholecalciferol, Vitamin D3, 125 mcg (5,000 [...] Sleep. ??? busPIRone (BUSPAR) 30 mg Tablet ??? lamoTRIgine (LAMICTAL) 100 mg Tablet Take 200 mg by mouth daily. ??? mirtazapine (REMERON) 30 mg tablet Take 1 tablet by mouth nightly. Indications: Major Depressive Disorder 30 tablet 0 Current Medications: ??? NORepinephrine (Levophed) (16 mcg/mL) in dextrose 5% 250 mL infusion ??? propofoL (Diprivan) (10 mg/mL) infusion AND propofoL (Diprivan) (10 mg/mL) bolus from infusion 10 mg ??? chlorhexidine (Peridex) 0.12 % oral solution 15 mL ??? enoxaparin (Lovenox) (40 mg/0.4 mL) subcutaneous injection 40 mg ??? magnesium sulfate 2 g in sterile water 50 mL infusion ??? diphth, pertus(acell), tetanus (Boostrix) injection 0.5 mL ??? famotidine (Pepcid) tablet 20 mg ??? lactated ringers infusion Allergies: Allergies Allergen Reactions ??? Latex Hives ??? Sulfa (Sulfonamide Antibiotics) Hives ??? Trazodone Other (See Comments) headache ??? Lactose Intolerance [Lactase] Diarrhea Family History: No family history on file. Social History and Habits: Social History Socioeconomic History ??? Marital status: Spouse name: Not on file ??? Number of children: Not on file ??? Years of education: Not on file ??? Highest education level: Not on file Occupational History ??? Not on file Tobacco Use ??? Smoking status: Never Smoker ??? Smokeless tobacco: Never Used Vaping Use ??? Vaping Use: Never used Substance and Sexual Activity ??? Alcohol use: Yes Alcohol/week: 1.0 standard drink Types: 1 Glasses of wine per week Comment: interminttent ??? Drug use: No ??? Sexual activity: Yes Partners: Male control/protection: Post-menopausal, Surgical Other Topics Concern ??? Not on file Social History Narrative ??? Not on file Social Determinants of Health Financial Resource Strain: Not on file Food Insecurity: Not on file Transportation Needs: Not on file Physical Activity: Not on file Housing Stability: Not on file Physical Exam: Ventilator Mode: Tidal Volume Set: (S) 470 Resp Rate Set: (S) 19 PEEP Set: FiO2: Ventilator Measurements: Resp: 18 Vt Exhaled: PIP: MAP: Plateau Press: 18 Ve: PEEP: SpO2: 100 % EtCO2: 27 mmHg Last Set of Vitals and range of vitals over past 24 hours: Last value Range last 24 hrs Temperature Temp: 36.8 ??C (98.24 ??F) Temp: [36.8 ??C (98.24 ??F)-37.3 ??C (99.1 ??F)] Heart Rate Heart Rate: 59 Heart Rate: [54-80] Blood Pressure BP: 128/67 BP: (123-136)/(67-75) Respiratory Rate Resp: 18 Resp: [16-19] SpO2 SpO2: 100 % SpO2: [99 %-100 %] No intake or output data in the 24 hours ending 01/07/22 0256 Gen: Intubated and sedated, intermittent non-purposeful movement of all extremities HEENT: Sclera non-icteric, PERRL, ETT secured in place, sluggish pupils bilaterally reactive CV: RRR, no m/r/g RESP: CTAB, no wheezing, ventilator BS bilaterally ABD: Soft, normoactive bowel sounds Neuro: +corneal reflexes, negative cough reflex. Pupils 4mm sluggish bilaterally. Intermittently moves all 4 extremities, intermittently thrusting her hips. Occasionally opens eyes but not to voice. Does not track. EXT: WWP, lacerations noted to wrists bilaterally, R worse than L Right: Left: Laboratory (Last 24 Hours): Recent Results (from the past 24 hour(s)) BLOOD GAS 2 VENOUS Result Value Ref Range pH Everardo 7.28 (CRIT) 7.32 - 7.42 pCO2 Everardo 40 (L) 41 - 51 mmHg pO2 Everardo 40 25 - 40 mmHg HCO3 Everardo 18.5 mmol/L BE Everardo -8.1 mmol/L Hgb Blood Gas 11.8 11.7 - 15.5 g/dL O2HB Everardo 71.4 % COHB Everardo 0.3 % METHB Everardo 0.8 <=1.5 % Na Whole Blood 138 135 - 145 mmol/L K Whole Blood 4.0 3.5 - 5.0 mmol/L ICa Whole Blood 1.09 (L) 1.15 - 1.33 mmol/L CL Whole Blood 108 (H) 98 - 107 mmol/L Gluc Whole Bld 89 65 - 199 mg/dL Lactate WB 3.7 (H) 0.5 - 2.2 mmol/L FIO2 Everardo 30 % BGas Source Venous Rapid Drug Screen, Urine (NERISSA Request) Result Value Ref Range NERISSA Conf Requested No NERISSA Requested See Comment Rapid Drug Screen w/o Confirmation, Urine Result Value Ref Range U Barbiturates Screen None Detected None Detected U Benzodiazepines Screen None Detected None Detected U Cocaine Screen None Detected None Detected U Methadone Metabolites Screen None Detected None Detected U Opiate Screen None Detected None Detected U Cannabinoid Screen None Detected None Detected U Oxycodone Screen None Detected None Detected U Buprenorphine Screen None Detected None Detected U Fentanyl Screen None Detected None Detected U Tricyclics Screen Presumptive Pos (A) None Detected U Ethanol Screen Positive (A) None Detected U Amphetamines Screen Presumptive Pos (A) None Detected U Adulterants Screen None Detected None Detected Comprehensive metabolic panel (non-fasting) Result Value Ref Range Glucose Lvl 90 65 - 199 mg/dL BUN 12 8 - 18 mg/dL Creatinine 0.78 0.70 - 1.20 mg/dL Sodium 140 135 - 145 mmol/L Potassium 4.3 3.5 - 5.0 mmol/L Chloride 107 98 - 107 mmol/L CO2 16 (L) 22 - 31 mmol/L Anion Gap 17 (H) 5 - 15 mmol/L Calcium 8.2 (L) 8.5 - 10.5 mg/dL Total Protein 5.3 (L) 6.1 - 8.0 g/dL Albumin 3.4 3.2 - 5.2 g/dL AST Not Perf 0 - 30 ALT 70 (H) 0 - 30 unit/L Alk Phos 39 35 - 105 unit/L Total Bilirubin 0.2 0.2 - 1.3 mg/dL Estimated GFR 81 >=60 mL/min/1.73 m?? Osmolality Result Value Ref Range Osmolality 302 (H) 275 - 295 mOsm/kg Salicylate Result Value Ref Range Salicylate Lvl 4 mg/L Acetaminophen level Result Value Ref Range Acetamin Lvl <5 (L) 10 - 30 mg/L Ethanol Level Result Value Ref Range Ethanol Lvl 392 (H) <=99 mg/L Prothrombin Time Result Value Ref Range PT 12.4 9.4 - 12.5 sec INR 1.1 APTT Result Value Ref Range PTT 25 25 - 37 sec Magnesium Result Value Ref Range Magnesium 0.64 (L) 0.69 - 1.07 mmol/L Phosphorus Result Value Ref Range Phosphorus 3.0 2.5 - 4.5 mg/dL Hemogram Result Value Ref Range WBC 6.9 4.0 - 9.5 x10(3)/mcL RBC 3.22 (L) 4.00 - 5.21 x10(6)/mcL Hemoglobin 10.7 (L) 11.7 - 15.5 g/dL Hematocrit 32.2 (L) 35.7 - 45.8 % MCV 100.0 (H) 82.6 - 94.4 fL MCH 33.2 (H) 27.1 - 32.0 pg MCHC 33.2 31.7 - 35.0 g/dL Platelets 195 145 - 357 x10(3)/mcL RDWSD 43.4 37.0 - 46.0 fL RDWCV 11.9 11.5 - 14.1 % MPV 10.9 7.6 - 12.9 fL nRBC % Auto 0.0 % nRBC Abs Auto 0.000 0.000 - 0.000 x10(3)/mcL Differential, Automated Result Value Ref Range Neutrophils % 89.3 % Neutr Abs (ANC) 6.13 (H) 1.70 - 6.10 x10(3)/mcL Lymphocytes % 6.4 % Lymphocytes Abs 0.4 (L) 0.9 - 3.2 x10(3)/mcL Monocytes % 3.9 % Monocyte Abs 0.3 0.3 - 0.9 x10(3)/mcL Eosinophils % 0.0 % Eosinophils Abs 0.0 0.0 - 0.4 x10(3)/mcL Basophils % 0.0 % Basophils Abs 0.0 0.0 - 0.1 x10(3)/mcL Immature Gran % 0.40 % Diana Gran Abs 0.03 0.00 - 0.04 x10(3)/mcL ABO/Rh Typing Result Value Ref Range ABORh Type O Pos Antibody screen Result Value Ref Range Ab Screen Interp Negative Expires at 2359 on: 01/10/2022 ABORH Recheck Status Result Value Ref Range ABORH Type Recheck Completed Type and Screen Validity Result Value Ref Range T&S only valid at [facility] [place] BLOOD GAS 2 ARTERIAL Result Value Ref Range pH Art 7.42 7.35 - 7.45 pCO2 Art 27 (L) 35 - 45 mmHg pO2 Art 119 (H) 85 - 104 mmHg HCO3 Art 17.0 (L) 20.0 - 26.0 mmol/L BE Art -7.5 (L) -3.0 - 3.0 mmol/L Hgb Blood Gas 12.6 11.7 - 15.5 g/dL O2HB Art 97.2 (H) 94.0 - 97.0 % COHB Art 0.3 % METHB Art 0.6 <=1.5 % Na Whole Blood 138 135 - 145 mmol/L K Whole Blood 4.2 3.5 - 5.0 mmol/L ICa Whole Blood 1.12 (L) 1.15 - 1.33 mmol/L CL Whole Blood 108 (H) 98 - 107 mmol/L Gluc Whole Bld 111 65 - 199 mg/dL Lactate WB 3.0 (H) 0.5 - 2.2 mmol/L FIO2 Art 25 % PF Ratio Art 476 Microbiology: Blood Cultures: pending Radiology: Pending CXR/KUB Assessment/Plan: Aziza Fields is a 61 y.o. female with PMH of MDD, OFELIA, migraines who presents with overdosein attempted suicide. Her neurological exam is non-purposeful but she does have evidence of brain stem activity. Given her unknown down time, toxic ingestions, hypothermia, and hypotension, the etiology of her AMS is likely multifactorial and includes toxic ingestion causing metabolic abnormality, hypoxic brain injury; low suspicion for infection at this time. Upon review of the labs, AG noted to be 17 with a delta gap of -2. Delta ratio is 5/8 or 0.625 which is suggestive of AGMA + NAGMA. Calculated osmolality is 300 with measured osmolality of 302 - all WNL and appropriate. Low suspicion for toxic alcohol at this time. AG is likely 2/2 lactic acid and EtOH but will revaluate as things begin to clear. QTc 450, OR interval 174 and a normal QRS - overall reassuring ECG with no concerning TOBY/STD, no prominent R waves and intervals are normal to high normal. I discussed the case with poison control who felt the best plan of care was supportive care until she begins to clear as we have no idea what she took. Additionally, I talked with the son at length about Aziza's case and asked him to talk to family/father in order to bring in the pill bottles to see if we can sleuth how much and what was possibly taken. Neuro: #AMS 2/2 toxic ingestion #MDD, OFELIA, h/o multiple suicide attempts - sedation: propofol gtt - holding home meds: on ativan, atarax, vilazodone, zolpidem, buspirone, lamictal per chart review - most of the prescribed meds she is taking are very sedating, likely contributing to her AMS Renal/: #Mixed AGMA + NAGMA #Acute toxic ingestion of unknown substances - yuan, monitor UOP - family will bring pill bottles - AG likely 2/2 EtOH and lactate, will continue to monitor - no osmolal gap, low suspicion for toxic alcohol ingestion CV: #bradycardia #hypotension, likely related to sedation - levophed gtt for MAP >65, wean as tolerated - HR in the 60s here - ECG reassuring with intervals in high normal range - discussed the case with poison control, no drugs that contribute to bradycardia Pulm: - Intubated for airway protection, on minimal vent settings - AMV protocol MSK: #Bilateral wrist lacerations - ACS consulted, pending final recommendations - No active bleeding, continue to monitor ID: - blood culture obtained x1 but low suspicion for infection - Tdap ordered Heme: #Anemia - Hgb 10.7 at OSH, 10.8 here, continue to monitor FEN/GI: #Nutrition - NPO, give meds - NGT in place, can consider feeds if neuro exam does not improve Endo: - RAGHU PPx: F: NGT, NPO A: tylenol prn S: propofol gtt T: lovenox HOB >30 U: famotidine bid G: glucose <180 L: NGT, ETT, 2 PIV Disp: admit to ICU, Critical Care Blue 2 #0100 Telma Cameron, PGY-2 Emergency Medicine #[id number] Associated attestation - Jose Juan Aparicio MD - 01/07/2022 10:42 AM EDT Agree with as stated. Please see my separate critical care progress note for additional details. Jose Juan Aparicio MD, 01/07/2022, 10:42 AM MICU Attending Section of Pulmonary & Critical Care Pager: [phone] documented in this encounter Procedure Notes * Sanjay Wang MD - 01/07/2022 7:10 PM EDTAssociated Order(s): EEG AWAKE, ASLEEP, DROWSY [facility] Department of Neurology Inpatient EEG Report Name of the Patient: Aziza Fields Date of : 1960 Date of Service: 01/07/2022 Referring physician: Ronni Gan MD. BRIEF HISTORY: Aziza Fields is a 61 y.o. patient with concern for seizure-like activity. MEDICATIONS: Current Facility-Administered Medications Medication Dose Route Frequency Provider Last Rate Last Admin ??? NORepinephrine (Levophed) (16 mcg/mL) in dextrose 5% 250 mL infusion 0-100 mcg/min Intravenous Continuous Telma Cameron MD Stopped at 01/07/22 1400 ??? propofoL (Diprivan) (10 mg/mL) infusion 0-50 mcg/kg/min Intravenous Continuous Telma Cameron MD Paused at 01/07/22 0929 And ??? propofoL (Diprivan) (10 mg/mL) bolus from infusion 10 mg 10 mg Intravenous Q10 Min PRN Telma Cameron MD 10 mg at 01/07/22 0603 ??? chlorhexidine (Peridex) 0.12 % oral solution 15 mL 15 mL Oral BID Telma Cameron MD 15 mL at 01/07/22 0914 ??? fentaNYL (PF) (50 mcg/mL) injection 50 mcg 50 mcg Intravenous Q1H PRN Lauren Rangel MD 50 mcg at 01/07/22 0612 ??? ampicillin-sulbactam (Unasyn) 1.5 g vial attach to sodium chloride 0.9% 50 mL Mini-Bag Plus 1.5g Intravenous Q6H Ronni Gan MD Stopped at 01/07/22 1733 ??? enoxaparin (Lovenox) (30 mg/0.3 mL) subcutaneous injection 30 mg 30 mg Subcutaneous Nightly Amador Toledo MD ??? famotidine (Pepcid) tablet 20 mg 20 mg Per NG tube 2 times per day Amador Toledo MD ??? LORazepam (Ativan) (2 mg/mL) injection 1 mg 1 mg Intravenous Once Amador Toledo MD ??? lactated ringers infusion 250 mL/hr Intravenous Continuous Amador Toledo MD 250 mL/hr at 01/07/22 1847 250 mL/hr at 01/07/22 1847 Facility-Administered Medications Ordered in Other Encounters Medication Dose Route Frequency Provider Last Rate Last Admin ??? lactated ringers infusion Continuous PRN Kasey Ames MD New Bag at 12/11/13 0805 METHODS: A 21 channel digitized electroencephalogram was performed in the [facility] Neurophysiology [facility]. The 10/20 international system of electrode placement was used and bipolar and referential electrode montages were recorded. In addition to EEG the patient was monitored for EKGand lateral/vertical eye movements. Video was recorded during the session. The duration of the recording was 60 minutes. QUEEN PRODUCER'S REPORT: Performed by: KR/PL Patient was not sleep deprived. Sleep was not attained. Photic stimulation was not performed (photic light not working). Hyperventilation was not performed. Effort was not adequate. Movement and other artifact was significant. Comments: ELECTROENCEPHALOGRAPHER'S REPORT: Background During the awake state with the eyes closed the background consisted of a low amplitude, 8 Hz posterior reactive rhythm that attenuated appropriately with eye opening. Beta activity was distributed diffusely with an anterior predominance. There was a normal anterior-posterior voltage gradient. Witheye opening the background activity changed to a low voltage mixture of alpha, beta, and occasionaltheta range frequencies. There were no significant asymmetries of background activity noted. There was nearly continuous slowing of background frequencies to delta range. Sleep Stage II sleep was not obtained. Hyperventilation: Hyperventilation was not performed due to inadequate effort. Photic Stimulation: Photic stimulation was not performed due to technical issue with light source. Abnormal Epileptiform/Rhythmic/Periodic Activity: None Clinical Events: None EKG EKG revealed normal sinus rhythm. PRIOR EEG: No previous EEG reports were available. INTERPRETATION: This EEG is abnormal due to: 1. Abundant slowing of background to delta frequencies during wakefulness CLINICAL CORRELATION: This approximately 1 hour EEG is abnormal with evidence of moderate global cerebral dysfunction which is nonspecific in etiology. There may be a drug effect from propofol. No epileptiform activity isnoted. If there is continued clinical concern that this patient may be having seizure, the diagnostic yield can be increased by obtaining a prolonged recording that captures sleep. Stewart Ellington MD Epilepsy Fellow PGY-5 Date of EEG Read: 01/08/2022 Neurology Attending I have personally reviewed the EEG, and I agree with the details as written. The above report was formulated in discussion with me at the time of EEG reading, and I agree with it as documented. Sanjay Wang MD Department [place] [address] Pager: [phone], #[phone] Email: [email or web address] CC: Ronni Gan MD * Alexia Rossi MD - 01/07/2022 7:19 AM EDT Bilateral wrist laceration repair Consent was obtained by her DPOA/ Tunde Paul over the phone. Her bilateral wrists were irrigated copiously with saline. The wrists were prepped with ChloraPrep and draped with OR towels. A time out was performed. At this point, the patient was grimacing, so IV 50 mcg fentanyl was given. Theleft wrist wound measured about 7 cm longitudinally. The right wrist wound measured about 10 cm longitudinally distally and a proximal right wound 3 cm more proximally. The skin edges were approximated with multiple interuppted 3-0 prolene sutures. 4x4 gauzes were placed over the incisions and Kerlix was used to wrap the wrists. Patient tolerated this procedure well. Dr. Rossi was present for part of the procedure and was available during the entire procedure. Lauren Rangel MD 01/07/22 General Surgery Resident I was the attending physician supervising the resident in the above care and I was present with theresident for the gresham component(s) of the procedure and remained immediately available throughout the remainder. Alexia Rossi MD documented in this encounter Miscellaneous Notes * Consult Note - Mone Lieberman MD - 01/17/2022 1:33 PM EDT Psychiatric Inpatient Consultation Follow Up Note Time Spent: 30 minutes Information Sources: Patient. Reason for consultation: MDD s/p high-lethality suicide attempt Interim History: ?? Off c-collor and cleared by ortho/spind ?? Respiratory therapy saw patient yesterday, pt tolerating room are well ?? OT saw patient yesterday, and per their assessment: Pt doing better than yesterday, but still quite weak, and needs hands on assistance of 1 when on her feet. Pt's standing tolerance remains limited by calf tightness/discomfort.. Pt hasn't had a lot of opportunites to mobilize within room, but is starting to today. Left walker and gait belt in room. Feel Pt would benefit from another day or 2 to get more mobile before transitioning to psych On exam today Aziza reports she is doing well. She reports some anxiety about speaking to her son inperson later today. She has thought a lot about this conversation and asking forgiveness of her sonand also being able to explain to him the frame of mind she is now in about the aftermath of my attempt. She shares that since September 22 she has not had 1 healthy experience due to her COVID infection. She tells me that due to COVID she lost all of her emotional and physical strength. Part of this was related to her loss of taste which in turn caused low appetite and weight loss. She reports today for mood is good and it is a 10 out of 10. She continues to remain interested in voluntary psychiatric admission and asks appropriate questions about unit rules. She remains hopeful about continuing to gain strength in her work with PT/OT. Review of Systems: Constitutional: No fevers, endorses fatigue Respiratory: No cough, +sinus headache Cardiac: Denies chest pain Psychiatric: See above Extent of history Determination: Ceferino descriptors, reviewed systems, and level of history with x. HPI Descriptors 1-3 1-3 4 + Reviewed Systems 0 1 2-9 Level of Hx PF EPF D Physical Exam: Last value Range last 24 hrs Temperature Temp: 36.6 ??C (97.9 ??F) Temp: [36.5 ??C (97.7 ??F)-37.1 ??C (98.8 ??F)] Heart Rate Heart Rate: 83 Heart Rate: -- Blood Pressure BP: 121/80 BP: (103-131)/(69-83) Respiratory Rate Resp: 14 Resp: [14] SpO2 SpO2: 97 % SpO2: [95 %-98 %] Mental Status Evaluation: Musculoskeletal System: Muscle Strength/Tone (note atrophy, abnormal movements): Decreased bulk, normal tone. No abnormal movements. Gait and Station: deferred Psychiatric: ?? Appearance: age appropriate and underweight ?? Behavior: cooperative with the interview, calm and good eye contact ?? Speech: normal pitch, normal rate, normal rhythm and soft ?? Language: fluent in trinidadian ?? Mood: getting better ?? Affect: constricted ?? Thought Process: linear ?? Associations: intact ?? Thought Content: endorses passive suicidal ideation, denied homicidal ideation, no bizarre delusions and no paranoid delusions ?? Perception: denied auditory hallucinations denied visual hallucinations not observed responding to internal stimuli ?? Orientation: person, place, date and situation ?? Attention/Concentration: able to sustain focus ?? Cognition: grossly intact by interview ?? Memory: recent and remote memory grossly intact ?? Fund of Knowledge: appropriate for age and level of functioning ?? Insight: fair ?? Judgment: limited Pertinent Diagnostic Testing: Pending cervical spine MRI 01/15 x-ray cervical spine: Slight dynamic instability at C4-C5 and C5-C6, which could be due to facet arthropathy. Recent Results (from the past 24 hour(s)) Basic Metabolic Panel (non-fasting) Result Value Ref Range Glucose Lvl 96 65 - 199 mg/dL BUN 13 8 - 18 mg/dL Creatinine 0.53 (L) 0.70 - 1.20 mg/dL Sodium 140 135 - 145 mmol/L Potassium 4.0 3.5 - 5.0 mmol/L Chloride 104 98 - 107 mmol/L CO2 23 22 - 31 mmol/L Anion Gap 13 5 - 15 mmol/L Calcium 9.5 8.5 - 10.5 mg/dL Estimated GFR 102 >=60 mL/min/1.73 m?? Magnesium Result Value Ref Range Magnesium 0.85 0.69 - 1.07 mmol/L Phosphorus Result Value Ref Range Phosphorus 4.1 2.5 - 4.5 mg/dL Hemogram Result Value Ref Range WBC 8.2 4.0 - 9.5 x10(3)/mcL RBC 3.53 (L) 4.00 - 5.21 x10(6)/mcL Hemoglobin 11.7 11.7 - 15.5 g/dL Hematocrit 34.1 (L) 35.7 - 45.8 % MCV 96.6 (H) 82.6 - 94.4 fL MCH 33.1 (H) 27.1 - 32.0 pg MCHC 34.3 31.7 - 35.0 g/dL Platelets 561 (H) 145 - 357 x10(3)/mcL RDWSD 42.5 37.0 - 46.0 fL RDWCV 12.1 11.5 - 14.1 % MPV 8.7 7.6 - 12.9 fL nRBC % Auto 0.0 % nRBC Abs Auto 0.000 0.000 - 0.000 x10(3)/mcL Differential, Automated Result Value Ref Range Neutrophils % 61.1 % Neutr Abs (ANC) 5.00 1.70 - 6.10 x10(3)/mcL Lymphocytes % 21.0 % Lymphocytes Abs 1.7 0.9 - 3.2 x10(3)/mcL Monocytes % 8.4 % Monocyte Abs 0.7 0.3 - 0.9 x10(3)/mcL Eosinophils % 1.3 % Eosinophils Abs 0.1 0.0 - 0.4 x10(3)/mcL Basophils % 1.0 % Basophils Abs 0.1 0.0 - 0.1 x10(3)/mcL Immature Gran % 7.20 % Diana Gran Abs 0.59 (H) 0.00 - 0.04 x10(3)/mcL Extent of Exam Determination: Ceferino completed bullets & level of exam with ? X? Bullets Completed 1-5 6-8 9+ Level of Exam PF EPF D Assessment: Aziza is a 61 y.o. woman with history of major depressive disorder, PTSD, and multiple suicide attempts via overdose requiring hospitalization, and prior good response to ECT most recently in 2013 admitted for medical stabilization status post suicide attempt by cutting her wrists resulting in hypovolemic shock. Patient's medical condition and mental status continues to slowly improve. She remains interested in voluntary psychiatric hospitalization and this remains indicated given the severity of her depression and near lethal suicide attempt requiring ICU-level care. Her current need for assistance for ADLs and ambulation precludes inpatient psychiatry transfer at this time. She continues to work with PT/OT to increase strength/balance and independent ambulation ability. Primary Diagnosis: MDD c/b suicide attempt Plan/Recommendations: -continue zyprexa 2.5mg po qhs -Continue home mirtazapine 30mg qhs -Continue 1:1 sitter -Continue conversation surrounding potential benefits of ECT -transfer to inpatient psychiatry once medically stable/cleared by PT/OT Patient on IEA Status? IEA: NO, patient is not an on IEA. Awaiting voluntary psychiatric placement but safety concerns exist if patient decides to leave and will require urgent psychiatric assessmentprior to discharge or leaving AMA. Recommendations were communicated to primary steam shovel operator Tamela Polk. Mone Lieberman MD 01/17/2022 Coding Determination Complexity of MDM Determination: Ceferino appropriate # of Dx, Amt, complexity of date, Risk, & corresponding level of MDM with x.2 out of 3 elements in row must be met to qualify. # of Possible Diagnoses or Management Options Amount and/or Complexity of Data Risk of Complications, Morbidity, and or Mortality Type of Decision Making Minimal Minimal/None Minimal Straightforward Limited Limited Low Low Multiple Moderate Moderate Moderate Extensive Extensive High High Subsequent Hospital Day Service Code Determination: Ceferino Hx, Exam, MDM & ANDERSON/CPT Code with x. 2 out of # gresham components in the row must be met toqualify. HISTORY EXAM MDM ANDERSON/CPT CODE PF PF Straightforward/Low 3005/73371 EPF EPF Moderate 3015/14438 D D High 3025/40488 * Plan of Care - Caleb Culp RN - 01/16/2022 6:50 PM EDT Pt is A&O X 4, was able to work with OT today and walked several times, using a gait belt and RW with one assist. Pt is ready to tx to floor. * Consult Note - Mone Lieberman MD - 01/16/2022 3:08 PM EDT Psychiatric Inpatient Consultation Follow Up Note Time Spent: 30 minutes Information Sources: Patient. Reason for consultation: MDD s/p high-lethality suicide attempt Interim History: ?? Continues to require 2 person assist for ambulation and care ?? Vital signs stable ?? Orthopedics evaluation today concluded c-collar could be removed and they are signing off On exam today and now reports feeling hopeful that her condition will improve. She maintains that she is interested in voluntary psychiatric admission for continued care once she is medically stabilized. She denies suicidal ideation. She is feeling good about progress she has made with respect to ambulation and strength, although admits she has a ways to go. Appetite is improving and she has beenhydrating well and is drinking Ensure. Review of Systems: Constitutional: No fevers, endorses fatigue Respiratory: No cough Cardiac: Denies chest pain Psychiatric: See above Extent of history Determination: Ceferino descriptors, reviewed systems, and level of history with x. HPI Descriptors 1-3 1-3 4 + Reviewed Systems 0 1 2-9 Level of Hx PF EPF D Physical Exam: Last value Range last 24 hrs Temperature Temp: 36.9 ??C (98.4 ??F) Temp: [36.9 ??C (98.4 ??F)-37.2 ??C (98.9 ??F)] Heart Rate Heart Rate: 83 Heart Rate: [69-92] Blood Pressure BP: 124/72 BP: (94-124)/(51-74) Respiratory Rate Resp: 14 Resp: [14-25] SpO2 SpO2: 95 % SpO2: [92 %-100 %] Mental Status Evaluation: Musculoskeletal System: Muscle Strength/Tone (note atrophy, abnormal movements): Decreased bulk, normal tone. No abnormal movements. Gait and Station: deferred Psychiatric: ?? Appearance: age appropriate and underweight ?? Behavior: cooperative with the interview, calm and good eye contact ?? Speech: normal pitch, normal rate, normal rhythm and soft ?? Language: fluent in trinidadian ?? Mood: getting better ?? Affect: constricted ?? Thought Process: linear ?? Associations: intact ?? Thought Content: endorses passive suicidal ideation, denied homicidal ideation, no bizarre delusions and no paranoid delusions ?? Perception: denied auditory hallucinations denied visual hallucinations not observed responding to internal stimuli ?? Orientation: person, place, date and situation ?? Attention/Concentration: able to sustain focus ?? Cognition: grossly intact by interview ?? Memory: recent and remote memory grossly intact ?? Fund of Knowledge: appropriate for age and level of functioning ?? Insight: fair ?? Judgment: limited Pertinent Diagnostic Testing: Pending cervical spine MRI 01/15 x-ray cervical spine: Slight dynamic instability at C4-C5 and C5-C6, which could be due to facet arthropathy. Recent Results (from the past 24 hour(s)) Basic Metabolic Panel (non-fasting) Result Value Ref Range Glucose Lvl 87 65 - 199 mg/dL BUN 12 8 - 18 mg/dL Creatinine 0.50 (L) 0.70 - 1.20 mg/dL Sodium 139 135 - 145 mmol/L Potassium 3.4 (L) 3.5 - 5.0 mmol/L Chloride 103 98 - 107 mmol/L CO2 22 22 - 31 mmol/L Anion Gap 14 5 - 15 mmol/L Calcium 9.3 8.5 - 10.5 mg/dL Estimated GFR 104 >=60 mL/min/1.73 m?? Magnesium Result Value Ref Range Magnesium 0.77 0.69 - 1.07 mmol/L Phosphorus Result Value Ref Range Phosphorus 3.6 2.5 - 4.5 mg/dL Hemogram Result Value Ref Range WBC 8.3 4.0 - 9.5 x10(3)/mcL RBC 3.46 (L) 4.00 - 5.21 x10(6)/mcL Hemoglobin 11.5 (L) 11.7 - 15.5 g/dL Hematocrit 33.5 (L) 35.7 - 45.8 % MCV 96.8 (H) 82.6 - 94.4 fL MCH 33.2 (H) 27.1 - 32.0 pg MCHC 34.3 31.7 - 35.0 g/dL Platelets 440 (H) 145 - 357 x10(3)/mcL RDWSD 42.2 37.0 - 46.0 fL RDWCV 12.0 11.5 - 14.1 % MPV 8.7 7.6 - 12.9 fL nRBC % Auto 0.0 % nRBC Abs Auto 0.000 0.000 - 0.000 x10(3)/mcL Differential, Automated Result Value Ref Range Neutrophils % 58.4 % Neutr Abs (ANC) 4.85 1.70 - 6.10 x10(3)/mcL Lymphocytes % 20.6 % Lymphocytes Abs 1.7 0.9 - 3.2 x10(3)/mcL Monocytes % 10.3 % Monocyte Abs 0.9 0.3 - 0.9 x10(3)/mcL Eosinophils % 1.4 % Eosinophils Abs 0.1 0.0 - 0.4 x10(3)/mcL Basophils % 1.0 % Basophils Abs 0.1 0.0 - 0.1 x10(3)/mcL Immature Gran % 8.30 % Diana Gran Abs 0.69 (H) 0.00 - 0.04 x10(3)/mcL Extent of Exam Determination: Ceferino completed bullets & level of exam with ? X? Bullets Completed 1-5 6-8 9+ Level of Exam PF EPF D Assessment: Aziza is a 61 y.o. woman with history of major depressive disorder, PTSD, and multiple suicide attempts via overdose requiring hospitalization, and prior good response to ECT most recently in 2013 admitted for medical stabilization status post suicide attempt by cutting her wrists resulting in hypovolemic shock. Patient's medical condition and mental status continues to slowly improve. She remains interested in voluntary psychiatric hospitalization and this remains indicated given the severity of her depression and near lethal suicide attempt requiring ICU-level care. Primary Diagnosis: MDD c/b suicide attempt Plan/Recommendations: -continue zyprexa 2.5mg po qhs, may consider increase to 5 mg -Continue home mirtazapine 30mg qhs -Continue 1:1 sitter -Continue conversation surrounding potential benefits of ECT -aggressive PT/OT to increase strength and independence. 2-person assist precludes her transfer to inpatient psychiatry -transfer to inpatient psychiatry once medically stable Patient on IEA Status? IEA: NO, patient is not an on IEA. Awaiting voluntary psychiatric placement but safety concerns exist if patient decides to leave and will require urgent psychiatric assessmentprior to discharge or leaving AMA. Recommendations were communicated to primary steam shovel operator Tamela Polk. Mone Lieberman MD 01/16/2022 Coding Determination Complexity of MDM Determination: Ceferino appropriate # of Dx, Amt, complexity of date, Risk, & corresponding level of MDM with x.2 out of 3 elements in row must be met to qualify. # of Possible Diagnoses or Management Options Amount and/or Complexity of Data Risk of Complications, Morbidity, and or Mortality Type of Decision Making Minimal Minimal/None Minimal Straightforward Limited Limited Low Low Multiple Moderate Moderate Moderate Extensive Extensive High High Subsequent Hospital Day Service Code Determination: Ceferino Hx, Exam, MDM & ANDERSON/CPT Code with x. 2 out of # gresham components in the row must be met toqualify. HISTORY EXAM MDM ANDERSON/CPT CODE PF PF Straightforward/Low 3005/74334 EPF EPF Moderate 3015/09651 D D High 3025/52859 * Consult Note - Red Eastman MD - 01/16/2022 9:22 AM EDT ORTHOPAEDIC SURGERY SPINE CONSULT NOTE ATTENDING: Raiza Aziza Fields is a 61 y.o. female who presents to see us in consultation today at the request of Claudy Estevez MD. CHIEF COMPLAINT: c-collar clearance HPI: Aziza Fields is a 61 y.o. female with history of MDD, OFELIA admitted for suicide attempt, cutting bilateral wrists, admitted to MICU for hypovolemic shock, placed initially in C-collar forneck pain. The patient has since been transitioned to floor status, mentating appropriately, underwent flex/ext XRs yesterday which demonstrated a question of dynamic extension retrolisthesis. MRI obtained by primary team did not demonstrate ligamentous injury or disc herniation. Patient denies neck pain today. FOCUSED REVIEW OF SYSTEMS: as above. Active Hospital Problems Diagnosis ??? Overdose Resolved Hospital Problems No resolved problems to display. Active Non-Hospital Problems Diagnosis ??? Migraine without aura and without status [...] episode, severe, without mention of psychotic behavior ??? MDD (major depressive disorder), recurrent episode, severe FAMILY HISTORY: Negative for bleeding/clotting disorders or anesthetic complications. SOCIAL HISTORY: Social History Tobacco Use Smoking Status Never Smoker Smokeless Tobacco Never Used Social History Substance and Sexual Activity Alcohol Use Yes ??? Alcohol/week: 1.0 standard drink ??? Types: 1 Glasses of wine per week Comment: interminttent Illicits: Employment: Living Situation: At home MEDICATIONS: ??? LORazepam (Ativan) (2 mg/mL) injection 0.5 mg ??? OLANZapine zydis (ZyPREXA) disintegrating tablet 2.5 mg ??? LORazepam (Ativan) (2 mg/mL) injection 0.5 mg ??? melatonin tablet 3 mg ??? ondansetron ODT (Zofran-ODT) disintegrating tablet 8 mg ??? mirtazapine (Remeron) tablet 30 mg ??? bisacodyL (Dulcolax) suppository 10 mg ??? lidocaine (Lidoderm) 5% patch 3 patch AND lidocaine (Lidoderm) topical patch REMOVAL ??? acetaminophen (Tylenol) tablet 650 mg ??? polyethylene glycoL (Miralax) packet 17 g ??? tube feeding diet ??? ipratropium-albuteroL (Duoneb) 0.5 mg-3 mg(2.5 mg base)/3 mL nebulizer solution 3 mL ??? sodium chloride (NebuSal) 3 % nebulizer solution 4 mL ??? enoxaparin (Lovenox) (30 mg/0.3 mL) subcutaneous injection 30 mg ??? tube feeding diet Stopped (01/14/22 1900) OBJECTIVE: Temp: [36.9 ??C (98.4 ??F)-37.2 ??C (98.9 ??F)] Heart Rate: [69-92] Resp: [14-25] BP: (94-127)/(51-74) Intake/Output Summary (Last 24 hours) at 01/16/2022 0922 Last data filed at 01/16/2022 0800 Gross per 24 hour Intake 1163 ml Output 475 ml Net 688 ml Body mass index is 15.63 kg/m??. PHYSICAL EXAM: Gen: NAD, awake, alert, appropriate CV: Regular rate and rhythm Pulm: Non-labored breathing Focused Spine Exam: Neck: Full ROM, no pain with flexion or extension in place. No cervical spine bony tenderness, crepitance, or stepoff . Motor: Segment Muscle Action R L C5 Deltoid Shoulder Abd 5 5 C5 Biceps Elbow flexion 5 5 C6 ECRL, ECRB Wrist extension 5 5 C7 Triceps Elbow extension 5 5 C8 Hand Grasp 5 5 T1 Hand intrinsics Finger abd/adduction 5 5 L2 Iliopsoas Hip flexion 5 5 L3 Quadriceps Knee extension 5 5 L4,5 Hamstring Knee Flexion 5 5 L4 Tibialis anterior Dorsiflexion 5 5 L5 Extensor hallucis Great toe extension 5 5 S1 Gastrocnemius, FHL Plantar flexion 5 5 Sensory: Sensation (light touch) (0=absent, 1=impaired, 2=normal) Segment location Right Left C4 top of AC joint 2 2 C5 lat side antecub fossa 2 2 C6 dorsal thumb 2 2 C7 dorsal middle finger 2 2 C8 dorsal small finger 2 2 T1 med side antecub fossa 2 2 T2 apex axilla 2 2 T3 3rd IS (intercostal space) 2 2 T4 nipple line 2 2 T12 mid inguinal ligament 2 2 L1 upper inner thigh 2 2 L2 mid-ant thigh 2 2 L3 med femoral condyle 2 2 L4 medial mal 2 2 L5 dorsum foot, 3rd MT 2 2 S1 lat heal 2 2 S2 Popliteal fossa 2 2 Reflexes: R L Biceps 2/4 2/4 Briggs absent absent Patellar 2/4 2/4 Ankle jerk 2/4 2/4 Plantar Downgoing Downgoing Clonus absent absent LABS: Last wbc, hgb, hct plt Recent Labs 01/16/22 0127 WBC 8.3 HGB 11.5* HCT 33.5* IMAGING: XR c-spine: retrolisthesis C4-5 and C5-6 with 1-2mm on extension films MRI: No sign of ligamentous injury, disc herniation, cord compression, cord signal change ASSESSMENT/RECOMMENDATIONS: 61 y.o. female history of MDD, OFELIA admitted for suicide attempt, cutting bilateral wrists, admitted to MICU for hypovolemic shock, placed initially in C-collar for neck pain. No pain with neck range of motion, no midline tenderness. No Mri evidence of instability. Collar-d/c'd. Ortho spine signing off. Please page [phone] should further questions arise. - Activity- AAT, no c-collar - DVT prophylaxis- Per primary - Diet - Per primary - Discuss with Dr. Raiza Denis MD Pager: [phone] 01/16/22 9:22 AM Future Appointments Date Time Provider Department Center 02/15/2022 9:00 AM Cathy Silva APRN [facility] Spine Attending I have seen and examined the patient and agree with the resident's findings and plan. Pt with neck pain in setting of degen changes C4-C7 with mild retrolisthesis at those levels that reduces with flexion. MRI shows no ligamentous injury. There is no h/o neck trauma. These are degenerative changes, no acute injury identified. No need for spine f/u. * Consult Note - Maria Ines Conner RN - 01/15/2022 4:32 PM EDT Images from the original note were not included. Certified Wound Care Nurse Note Situation: Follow up to see Aziza Fields for stage 2 pressure injury on the sacrum. Background: eD-H notes reviewed for history, admitting diagnosis and active problem list. Wound Assessment and Care Provided: Patient seen this morning in room IC34-A in bed, reason for visit explained to patient, permission received to assess skin. Seen with RN, patient was able to turn to the left, RN had just taken off the Mepilex Border Sacrum due to it being wet. There are dark pink areas on the buttocks and at the coccyx however all areas are closed and kehinde. Buttocks: Choco Score: 13 Last Pressure Ulcer Prevention assessment: Shift Pressure Injury Prevention Occiput: No Injury Thoracic Spine: No Injury Sacral: Existing Injury Ischial - left: No Injury Ischial - right: No Injury Heel - left: No Injury Heel - right: No Injury Elbow - left: No Injury Elbow - right: No Injury Device Sites: NGT, O2 sat monitor, IV sites, yuan, ECG Leads, BP Cuff Other Sites: ID band Existing Wounds: Pressure Injury 01/07/222214 sacral spine Stage 2 (Active) Pressure Injury Appearance pink;closed/resurfaced 01/15/22 1600 Dressing foam 01/15/22 1600 Nutritional Status Wt Readings from Last 1 Encounters: 01/14/22 45.6 kg (100 lb 8.5 oz) Body mass index is 16.23 kg/m??. Labs Lab Results Component Value Date ALBUMIN 3.4 01/07/2022 ALBUMIN 4.7 12/14/2021 ALBUMIN 4.2 02/20/2019 WBC 9.4 01/15/2022 WBC 9.0 01/14/2022 WBC 7.7 01/13/2022 HGB 11.4 (L) 01/15/2022 HGB 11.0 (L) 01/14/2022 HGB 10.4 (L) 01/13/2022 HCT 32.8 (L) 01/15/2022 HCT 31.7 (L) 01/14/2022 HCT 29.8 (L) 01/13/2022 Nutritional Intake Nutrition Diet/Nutrition Received: regular Diet/Feeding Assistance: assisted with feeding Diet/Feeding Tolerance: good Intake (%): 0% (a bite or two of egg and less than half a popsicle. says she would do better with nutritional shake.) Current bed: [facility] Assessment: Area of skin loss now resurfaced. Stage 2 pressure injury now resolved. Patient is with a BMI of 16and Choco Score of 13, she is at moderate risk for pressure injury. Wound Care Recommendations: Mepilex Border Sacrum dressing to sacrum-Assess beneath the dressing daily and reapply, sealing edges with skin prep. Change every 3 days and PRN: 1. 1. Cleanse skin with dermal wound cleanser. 2. 2. Apply Mepilex Border Sacrum dressing making sure to apply directly against the skin. 3. 3. Seal edges with skin prep. If the Mepilex Border Sacrum needs to be changed more than once a day due to soiling then discontinue and use shield barrier wipes and apply zinc barrier cream to denuded skin ?? Refer to adult/pediatric pressure ulcer prevention job aid in the clinical policy library highlighting the following points: Mobility: Turn and reposition every 2 hours and document in ED-H. Side to Side only. Place a pillow above and below sacral area to off load pressure to the sacrum Offload pressure from heels by placing pillows lengthwise beneath legs while in bed. Offload pressure from heels by adjusting length of foot of bed. ??Nutrition: Evaluate nutrition/hydration status. Encourage patient to eat or drink nutritional supplements as ordered. Assist with snacks and meals as appropriate. Follow Dietitian recommendations. Wound care will follow in 2 weeks. Discussed plan with: RN: Rona Please contact MARIA INES CONNER RN on pager [phone] or the wound care team at [phone] or pager [phone] with skin and wound care concerns or questions. Electronically Signed By: MARIA INES CONNER RN * Consult Note - SisNaga - 01/15/2022 3:39 PM EDT Psychiatric Inpatient Consultation Follow Up Note Time Spent: 30 minutes Information Sources: Patient. This patient was discussed with Dr. Patton. See his note for confirmatory and/or revisionary documentation. Reason for consultation: MDD c/b high-lethality suicide attempt Interim History: -VSS, NAEO -endorses intermittent passive suicidal ideation today, though improving mood and desire to get better -Seen by BIT, -Reports not getting any sleep yesterday (on ambien outpatient) -Restarted on home remeron yesterday -pending MRI otherwise close to being medically clear for psychiatric admission -Dobhoff tube removed, able to take po -Started PT/OT today Review of Systems: Constitutional: +fatigue, +decreased appetite, +difficulty sleeping Psychiatric: See above Extent of history Determination: Ceferino descriptors, reviewed systems, and level of history with x. HPI Descriptors 1-3 1-3 4 + Reviewed Systems 0 1 2-9 Level of Hx PF EPF D Physical Exam: Last value Range last 24 hrs Temperature Temp: 37.1 ??C (98.8 ??F) Temp: [37.1 ??C (98.78 ??F)-37.7 ??C (99.86 ??F)] Heart Rate Heart Rate: 82 Heart Rate: [73-82] Blood Pressure BP: 127/72 BP: (107-127)/(64-80) Respiratory Rate Resp: 20 Resp: [17-31] SpO2 SpO2: 96 % SpO2: [91 %-96 %] Mental Status Evaluation: Musculoskeletal System: Muscle Strength/Tone (note atrophy, abnormal movements): Decreased bulk, normal tone. No abnormal movements. Gait and Station: deferred Psychiatric: ?? Appearance: age appropriate and underweight ?? Behavior: cooperative with the interview, calm and good eye contact ?? Speech: normal pitch, normal rate, normal rhythm and soft ?? Language: fluent in trinidadian ?? Mood: better ?? Affect: constricted ?? Thought Process: linear ?? Associations: intact ?? Thought Content: endorses passive suicidal ideation, denied homicidal ideation, no bizarre delusions and no paranoid delusions ?? Perception: denied auditory hallucinations denied visual hallucinations not observed responding to internal stimuli ?? Orientation: person, place, date and situation ?? Attention/Concentration: able to sustain focus ?? Cognition: grossly intact by interview ?? Memory: recent and remote memory grossly intact ?? Fund of Knowledge: appropriate for age and level of functioning ?? Insight: fair ?? Judgment: limited Pertinent Diagnostic Testing: Pending cervical spine MRI 01/15 x-ray cervical spine: Slight dynamic instability at C4-C5 and C5-C6, which could be due to facet arthropathy. Recent Results (from the past 24 hour(s)) Basic Metabolic Panel (non-fasting) Result Value Ref Range Glucose Lvl 100 65 - 199 mg/dL BUN 15 8 - 18 mg/dL Creatinine 0.36 (L) 0.70 - 1.20 mg/dL Sodium 139 135 - 145 mmol/L Potassium 4.0 3.5 - 5.0 mmol/L Chloride 103 98 - 107 mmol/L CO2 24 22 - 31 mmol/L Anion Gap 12 5 - 15 mmol/L Calcium 9.1 8.5 - 10.5 mg/dL Estimated GFR 116 >=60 mL/min/1.73 m?? Magnesium Result Value Ref Range Magnesium 0.79 0.69 - 1.07 mmol/L Phosphorus Result Value Ref Range Phosphorus 3.3 2.5 - 4.5 mg/dL Hemogram Result Value Ref Range WBC 9.4 4.0 - 9.5 x10(3)/mcL RBC 3.44 (L) 4.00 - 5.21 x10(6)/mcL Hemoglobin 11.4 (L) 11.7 - 15.5 g/dL Hematocrit 32.8 (L) 35.7 - 45.8 % MCV 95.3 (H) 82.6 - 94.4 fL MCH 33.1 (H) 27.1 - 32.0 pg MCHC 34.8 31.7 - 35.0 g/dL Platelets 376 (H) 145 - 357 x10(3)/mcL RDWSD 41.6 37.0 - 46.0 fL RDWCV 11.9 11.5 - 14.1 % MPV 8.7 7.6 - 12.9 fL nRBC % Auto 0.0 % nRBC Abs Auto 0.000 0.000 - 0.000 x10(3)/mcL Differential, Automated Result Value Ref Range Neutrophils % 66.8 % Neutr Abs (ANC) 6.27 (H) 1.70 - 6.10 x10(3)/mcL Lymphocytes % 12.9 % Lymphocytes Abs 1.2 0.9 - 3.2 x10(3)/mcL Monocytes % 8.5 % Monocyte Abs 0.8 0.3 - 0.9 x10(3)/mcL Eosinophils % 0.9 % Eosinophils Abs 0.1 0.0 - 0.4 x10(3)/mcL Basophils % 1.1 % Basophils Abs 0.1 0.0 - 0.1 x10(3)/mcL Immature Gran % 9.80 % Diana Gran Abs 0.92 (H) 0.00 - 0.04 x10(3)/mcL Extent of Exam Determination: Ceferino completed bullets & level of exam with ? X? Bullets Completed 1-5 6-8 9+ Level of Exam PF EPF D Assessment: Aziza Fields is a 61 y/o F with a pertinent psychiatric hx of major depressive disorder complicated by multiple suicide attempts via overdose requiring hospitalization s/p ECT, general anxiety disorder, and post-traumatic stress disorder presenting after suicide attempt via overdose and cutting of wrists. Previous suicide attempts involved overdose but no cutting. Both attempts [place] [facility] [place] (last 2013). Of note, pt expressed a preference to not undergo ECT mostly due to memory issues. Pt's states that pt's character was just different during treatment. Pt reports having had a suicide plan for around 3 weeks prior to the event, and that the plan has been similar across previous suicide attempts with the exception of self-harm. Chronic rectal pain, mental health co- morbidities, previous suicidal attempts, childhood trauma are risk factors contributing to this high-lethality event. Protective factors include access to mental care, spousal support. ?? 01/14: On evaluation today, pt was fully cooperative with interview. Pt reported intermittently wishing that she was able to complete suicide, mostly attributed to the physical pain she is in right now and the burden caused to her family. Pt demonstrated limit forward-thinking. However, pt does not demonstrate active suicidal ideation and expressed that she would reach out to staff if she started to have them. Pt would likely benefit from psychiatric admission and ECT. 01/15: Pt mental status has improved compared to 01/14. Patient was more awake and alert, describes her mood as 'better', affect notably more full, though pt endorses intermittent passive suicidal ideation relating chronic hair loss to deep shame and wanting to end her life. BIT was able to see pt today to discuss precipitating factors to depression/acts of suicide and will continue to follow. Pt has expressed desire to live and is more future-oriented. Pt reports not sleeping at night, and that she may need a stronger pharmacologic regimen for sleep (was on ambien at home). Pt also reports decreased appetite. Of note, pt expressed again heavily preferring to not undergo ECT but says she can come around to it if necessary and will have ongoing conversation with about it. Primary Diagnosis: MDD c/b suicide attempt Plan/Recommendations: -Start zyprexa 2.5mg po qhs -Continue home mirtazapine 30mg qhs -Consider ambien if pt continues to have profound difficulty sleeping -Continue 1:1 sitter Patient on IEA Status? IEA: NO, patient is not an on IEA. Awaiting voluntary psychiatric placement but safety concerns exist if patient decides to leave and will require urgent psychiatric assessmentprior to discharge or leaving AMA. Recommendations were communicated to primary steam shovel operator Tamela Polk. Naga Alegre 01/15/2022 Coding Determination Complexity of MDM Determination: Ceferino appropriate # of Dx, Amt, complexity of date, Risk, & corresponding level of MDM with x.2 out of 3 elements in row must be met to qualify. # of Possible Diagnoses or Management Options Amount and/or Complexity of Data Risk of Complications, Morbidity, and or Mortality Type of Decision Making Minimal Minimal/None Minimal Straightforward Limited Limited Low Low Multiple Moderate Moderate Moderate Extensive Extensive High High Subsequent Hospital Day Service Code Determination: Ceferino Hx, Exam, MDM & ANDERSON/CPT Code with x. 2 out of # gresham components in the row must be met toqualify. HISTORY EXAM MDM ANDERSON/CPT CODE PF PF Straightforward/Low 3005/70432 EPF EPF Moderate 3015/75296 D D High 3025/35434 Associated attestation - Joshua Patton MD - 01/25/2022 11:39 AM EDT Psychiatry Attending Note I discussed this patient's situation with the resident but did not see the patient. I contributed to the formulation and treatment planning as documented in the resident's note. Joshua Patton MD Psychiatry Consultation Pager: [phone] * Consult Note - Shira Magana, [facility] - 01/15/2022 10:30 AM EDT BIT Evaluation (Behavioral Intervention Team) Referral source: Consult request by Psychiatry CL service Reason for referral: Depressed mood Prior psych history Other: suicide attempt Relevant history: Per Dr. Francis Linton's note: Aziza Alfa Spian-Petit??is a??61 y.o.??female with PMH of MDD, OFELIA, migraines who??was admitted to the MICU for??overdose in attempted suicide req intubation for airway protection, now HDS transferred to . Psychiatry CL team is following this patient and suggested that BIT be involved for additional psychotherapy support while patient is still medically hospitalized. Dr. Hsu introduced patient to [facility] today and patient was accepting of of the BIT service. Patient stated that she needs do deep trauma therapy in terms of processing the trauma of her suicide attempt. She said that she knows it was traumatizing to her and it was also both physically and psychologically traumatizing for herself. She said that since coming to, she has been having flashbacks of making the suicide plan and following through with the plan. Looking at her bandaged wrists is another reminder. She said that she is glad to have survived and she does want to be alive. She has tremendous guilt about how this has impacted others in her life. Patient talked about the many factors that contributed to her increased depression over the past year. Her best friend and this is a very significant loss for her. Her pelvic pain/pressure is debilitating when it flares, rendering her unable to engage in physical activities that give her pleasure (hiking, kayaking, etc.). She hasn't been able to maintain her home, yard or gardens; requiring the need to scale back and also accept help from her . Loss of taste and smell from covid exacerbated or re-activated her anorexia which compounded the fatigue/loss of energy she was already feeling from her depression. Patient endorses that her mind was hijacked by depression and her suicide plan prior to enacting her plan. Patient feels that she has a close relationship with her with good communication (with the exception of not fully divulging her suicide planning and intention). He offered the observation that this and her last suicide attempts both happened after deaths of important people in her life. He also offered the observation that patient is more open and willing to talk and accept help after this suicide attempt as compared with past psychiatric crises. Patient agreed with these perspectives. Patient stated that she knows she needs to make changes in her life. She said that one major changeis to be more accepting of her limitations/different abilities. She can see that this also means having more flexibility. She is engaged in psychotherapy and also with a psychiatric nurse practitioner for her psychiatric medications and she plans to continue working with these providers. 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 She feels connected to her zoroastrian community and finds meaning in her involvement. [facility] encouraged patient to start and continue to share thoughts/feelings that she's experiencing as a way to process and receive the help she needs (opposite of solitary secretiveness that happens with serious suicide planning and actions). Offered patient the concept of time-based pacing from the chronic pain literature as she thinks about ways to move forward despite not being able to engage in the level of physicality that she'd been accustomed to prior to her current physical challenges. Provided support, validation and reflection of what she was communicating. Assessment: Patient was awake and alert, open to communicating during today's encounter. Her voice was of low volume though articulate and understandable. She is demonstrating willingness to discuss precipitating factors contributing to her profound depression as well as the planning and act of attempting suicide. Her affect was understandable (at times tearful) based on what she was discussing. Patient is at especially high risk for suicidal behavior due to her psychiatric diagnoses (treatment resistant MDD, PTSD, anxiety, eating disorder), her now 3 serious suicide attempts (with the most recent being the most lethal) and her many recent losses (interpersonal, functional, recreational). She is currently expressing gratitude for being alive, she's open to making changes/receiving assistance with her mental illness symptoms and she is future-oriented which are mitigating factors for imminent suicide at this time. Interventions delivered: Supportive therapy Plan: [facility] to continue to follow while medically hospitalized Outstanding Discharge Needs: Other: to be determined likely by inpatient psychiatry Time spent with the patient (min):45 minutes Time spent on case coordination (min): 15 minutes Shira Magana MA, [facility] - BIT (Behavioral Intervention Team) Dept. of Psychiatry - Inpatient Psych. Services Pager: [phone] * Consult Note - SisNaga - 01/14/2022 1:30 PM EDT Psychiatric Initial Inpatient Consultation Note Time of Consultation: 11:30 Time Spent: 90 minutes Information Sources: Patient. Electronic Medical Record. This patient was discussed with Dr. Patton. See his note for confirmatory and/or revisionary documentation. Reason for consultation: I have been asked by attending physician Dr. Singh to see Aziza Fields for recommendations regarding the management of depression c/b suicide attempt and I have outlined my findings and recommendations in this report. History of Present Illness: Aziza Fields is a 61 y/o F with a pertinent psychiatric hx of major depressive disorder complicated by multiple suicide attempts via overdose requiring hospitalization, general anxiety disorder, and post-traumatic stress disorder presenting after suicide attempt via overdose and cutting of wrists. Previous suicide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 acute agitation should it occur. Would recommend neuro c/s to r/o other etiologies of obtundation. If neuro should agree with assessment of likely serotonin syndrome, psych can provide recs for cyproheptadine administration. Given the lack of clarity regarding validity of pt's reported DNR/DNI status (I.e. whether this decision was made in the context of depressive sx), pt SHOULD be treated for any/all medical issues as indicated until further clarity can be obtained from pt herself. Thank you for this consult & please re-engage psych when patient is able to participate in interview. Yary Alvarenga MD Case d/w Dr. Patton Recommendations communicated to primary steam shovel operator Jeffry Chin DO * Initial Assessments - Jeimy Dougherty MSW - 01/09/2022 3:40 PM EDT Office of Care Management Initial Assessment DASIA Erickson reviewed record and discussed patient with Care Team. Source of Information: Team, bedside nurse, medical record, and Spouse (Can be hard to get [employer] phone but has been bedside everyday) Introduced self/reviewed role; services accepted. Reason for Hospitalization: Suicide attempt-Overdose and wrist lacerations Covid Vaccination Status: Unvaccinated (Does not want to be and has already had covid) Last COVID test: Lab Results Component Value Date [id number] Not Detected 01/06/2022 Past medical History: Past Medical History: Diagnosis Date ??? Anxiety ??? Depression ??? Dyspareunia ??? Irritable bowel syndrome ??? Pelvic pain Hospitalizations Within the Past 30 Days: no previous admission in last 30 days Current Decision-Making Capacity: Other (Friend) Advance Care Planning: Do NOT Attempt CPR - Inpatient Received -Advanced Directive: Yes, on file (Pt has a DNR form but not an AD in chart. is bringing inAD that lists friend) Who is your DPOA-HC?: Other (see comment) (Josiane Alfonso-friend. Did not want to be responsible for that. Will bring in paperwork) Current Coping/Education/Information Needs: Pt would benefit from alternative coping skills when feeling depressed Current Functional Ability: Independent Functional Status Prior to Admission: Independent Prior ADLs & IADLs: Independent with all ADLs & IADLs Home Environment: Others in the home: spouse, pet(s) (Family bought a pet to support pt with her mental health). Current Living Arrangements: home/apartment/condo. Accessibility Concerns:none. Resource / Environmental Concerns: Resource/Environmental Concerns: none Current DME: none Home Address confirmed as: [address] [place] [id number] Social & Family Supports: All names listed below confirmed with patient as current and correct Extended Emergency Contact Information Primary Emergency Contact: Tunde Paul Address: [address]placed by [facility] [address] [place] [address] [facility] Relation: Spouse Current Care Provided by: self Provides Primary Care For: no one Caregiver if needed: none Quality of Family relationships: supportive (Close to son and biological sisters. 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 Depression and eating disorder all herlife. Sees mental health therapist 2x a week Substance Use/Abuse confirmed: Social History Tobacco Use [...] Pertinent/Service Specific Information: Health/Prescription Coverage: Primary Insurance: P MANAGED MEDICARE Payor: [facility] MANAGED MEDICARE / Plan: MVP MANAGED MEDICARE / Product Type: *No Product type* / Secondary Insurance: N/A Prescription Coverage: Yes Preferred Pharmacy: [id number] - [place], [place] - [address] [facility] [address] [facility] [address] [id number] [place] [address] [facility] [address] [facility] [place] - [address] [facility] [address] Status: Patient is a : No Primary Care Provider: Madhavi Smith APRN [phone] Patient/Caregiver Goals of Treatment: For pt to wake up Potential Needs for Transition of Care: mental health services Agency Referrals: Not Applicable Transportation: no concerns Transportation Anticipated: family or friend will provide Concerns to be Addressed: care coordination/care conferences, critical care physician support, coping/stress, financial/insurance, suicidal, substance/tobacco abuse/use, medication Assessment: Patient is admitted to ICU service for Overdose and wrist lacerations. Pt has downgraded to hospital medicine and remains in the room not alert or oriented with a sitter. Her and or son seem to be at bedside each day. reports pt had covid in September, was not able to taste food which resulted in her not eating (has anorexia), which resulted in her depression to get worse. Pt has not seen her psychiatrist in person in two years but sees her mental health counselor 2x a week who is aware pt is here. Pt has been in inpatient unit before and reports while ptis going to give a hard time going back they would have no issue with her returning. Pt listed her friend as her DPOAH instead of so I would not have to make those decisions. would benefit form continued emotional support Plan: A member of the Care Management team will continue to monitor progress, follow for continuity of care and assist with transition of care planning. Office of Care Management Float/Weekend Sales Secretary DASIA Murillo Pager [phone] * Consult Note - Crystal Merlos RN - 01/08/2022 2:03 PM EDT Images from the original note were not included. Certified Wound Care Nurse Note Situation: Asked to see Aziza Fields by nursing for sm open area on sacrum, rednesss, blanchable. Background: eD-H notes reviewed for history, admitting diagnosis and active problem list. Per MD note:61 y.o. F with a past medical history of MDD, OFELIA, migraines presented with overdose in attempted suicide and wrist injuries. Patient seen in IC34. Wound Assessment and Care Provided: Mepilex border sacral dressing peeled back for assessment; sacrum is pink, with moist open injury, site of injury was not blanchable; periwound intact. Care and assessment noted below. Sacral dressing re-applied. Choco Score: 15 Last Pressure Ulcer Prevention assessment: Shift Pressure Injury Prevention Occiput: No Injury Thoracic Spine: No Injury Sacral: Redness, Blanchable Ischial - left: Redness, Blanchable Ischial - right: Redness, Blanchable Heel - left: No Injury Heel - right: No Injury Elbow - left: No Injury Elbow - right: No Injury Device Sites: O2 sat monitor, oxygen tubing, high flow nasal cannula strap, IV sites, yuan, ECG Leads, BP Cuff Other Sites: (ID band) Existing Wounds: Pressure Injury 01/07/222214 sacral spine Stage 2 (Active) Wound Length (cm) 0.4 cm 01/08/22 135 Wound Width (cm) 0.4 cm 01/08/22 135 Wound Depth (cm) 0.05 cm 01/08/22 135 Wound Surface Area (cm^2) 0.16 cm^2 01/08/22 135 Wound Volume (cm^3) 0.008 cm^3 01/08/22 1359 Stage Stage 2 01/08/22 135 Wound Cleaning cleansed with;wound cleanser 01/08/22 135 Dressing foam;dressing removed;dressing applied 01/08/22 135 Wound Image 01/08/22 135 Nutritional Status Wt Readings from Last 1 Encounters: 01/08/22 49 kg (108 lb 0.4 oz) Body mass index is 17.44 kg/m??. Labs Lab Results Component Value Date ALBUMIN 3.4 01/07/2022 ALBUMIN 4.7 12/14/2021 ALBUMIN 4.2 02/20/2019 WBC 6.9 01/08/2022 WBC 6.9 01/07/2022 WBC 5.8 01/17/2019 HGB 9.9 (L) 01/08/2022 HGB 10.7 (L) 01/07/2022 HGB 13.5 01/17/2019 HCT 29.6 (L) 01/08/2022 HCT 32.2 (L) 01/07/2022 HCT 41.9 01/17/2019 Nutritional Intake Nutrition Diet/Nutrition Received: NPO Current bed: Progressa Assessment: Open wound at sacrum appears to be Stage 2 pressure injury given epidermal loss, over bony prominence, present on admission. Wound Care Recommendations: Mepilex Border Sacrum dressing to sacrum-Assess beneath the dressing daily and reapply, sealing edges with skin prep. Change every 3 days and PRN: 1. Cleanse skin with dermal wound cleanser. 2. Apply Mepilex Border Sacrum dressing making sure to apply directly against the skin. 3. Seal edges with skin prep. If the Mepilex Border Sacrum needs to be changed more than once a day due to soiling then discontinue and use shield barrier wipes and apply zinc barrier cream to denuded skin Mobility: Turn and reposition every 2 hours and document in ED-H. Side to Side only. Place a pillow above and below sacral area to off load pressure to the sacrum Offload pressure from heels by placing pillows lengthwise beneath legs while in bed. Offload pressure from heels by adjusting length of foot of bed. Wound Care will follow weekly. Discussed plan with: /GE/TIM: Malik via secure chat RN: Chris Please contact Crystal Merlos RN, IZABELLA on pager [phone] or the wound care team at [phone] or pager [phone] with skin and wound care concerns or questions. Electronically Signed By: Crystal Merlos RN, IZABELLA * Plan of Care - Indy Patrick RN - 01/08/2022 5:11 AM EDT OUTCOME EVALUATION NOTE: OUTCOME SUMMARY: Pt alert but disorientated x4, following commands and answering yes or no questions at times, waxing and waning throughout shift. Pt restless on and off, PRN ativan given with good effect. Pt desat to 70% placed, on NRB at 15L, at bedside to assess, pt placed on HFNC. CXR completed at bedside. Pt on HFNC at 50%. Pt NSR/SB, BP labile during the night, levo restarted, titrated to maintain MAP>65. Pt remains with cervical collar in place but OK to sit up per MD, will reassess this AM. Wound consult placed. 1:1 observation maintained for suicidal ideation. Will continue to monitor. PLAN MOVING FORWARD: Wean oxygen requirements as tolerated. Monitor mental status. INDIVIDUALIZED FALL PREVENTION INTERVENTIONS: Patient-specific fall risk factors per assessment: [current deficits]: Lines, drains tubing, mentalstatus, generalized weakness. Assistance [level of assistance required for transfers and ambulation]: Total care, 2 assist. Supervision [direct monitoring required during toileting and ADLs]: Hands on. Surveillance [continuous indirect monitoring]: Thomason ICU monitoring, frequent rounding, sitter at bedside. Patient-specific fall prevention interventions for sensory deficits provided, if applicable: Yes CPG GOAL OUTCOME EVALUATION: * Consult Note - Alvarado Hsu MD - 01/07/2022 4:50 PM EDT Evaluated patient on 01/07 @ 5pm. Patient lying in bed in c-collar with eyes closed. Not responding to questions. Increased muscle tone throughout. No spontaneous myoclonus viewed on exam. No myoclonus elicited. No mydriasis, tremor, tachycardia, or fever on exam. At this time, patient does not meethunter criteria (outlined below) for serotonin syndrome which has >96% sensitivity and >75% specificity for serotonin syndrome. Quique Criteria Spontaneous clonus OR Inducible clonus PLUS agitation or diaphoresis OR Ocular clonus PLUS agitation or diaphoresis OR Tremor PLUS hyperreflexia OR Psychiatry to continue to follow, full evaluation to come one patient able to participate in interview. * Consult Note - Alexia Rossi MD - 01/07/2022 3:15 AM EDT Trauma Surgery Admission History & Physical Patient Name: Aziza Fields Level of Activation: consult MR#: [id number] [ ] Scene Call or [X] Hospital Transfer : [id number] CC/MECHANISM OF INJURY: 61 y.o. Female s/p bilateral wrist lacerations HISTORY OF PRESENT ILLNESS: Aziza Fields is a 61 y.o. female [place] [facility] [place]. Description of events leading up to injury includes: Per chart review the patient has a history of suicide attempts involving overdoses and increasing severity. Per report her left to run some errands and upon his return he was unable to find her. Eventually the police were called and she was found down in her shed. This took about 6 hours per report. When EMS arrived she was hypothermic to 28.2 ??C, bradycardic, hypotensive with multiple pillows around her and lacerations to bilateral wrists. She was intubated for airway protection, received Narcan, glucagon, and bicarbonate with unknown effects. She required 10 of Levophed and her heart rate improved. Her hemoglobin was noted to be 10.8 at the outside hospital one of her pills was identified to be gabapentin 100 mg, Poison control was contacted. [place] [facility] [place] was not on sedation but propofol was started due to thrashing. Primary survey revealed: intact airway with ETT in place, equal breath sounds/respirations, present2+ peripheral pulses with stable vital signs and no signs of bleeding, GCS 10 (6 - Follows simple motor commands, 1 - Makes no noise, 3 - Opens eyes to loud noise or command), and complete exposure. Secondary survey is as follows. PAST MEDICAL AND SURGICAL HISTORY: Past Medical History: Diagnosis Date ??? Anxiety ??? Depression ??? Dyspareunia ??? Irritable bowel syndrome ??? Pelvic pain Past Surgical History: Procedure Laterality Date ??? INGUINAL HERNIA REPAIR Right 2009 ??? LAPAROSCOPY 1996 scar tissue/ adhesions ??? PRO ELECTROCONVULSIVE THERAPY 08/17/2013 ECT performed by Brandie Rios MD at [facility] OR ??? PRO ELECTROCONVULSIVE THERAPY 08/20/2013 ECT performed by Jeremy Condon MD at [facility] OR ??? PRO ELECTROCONVULSIVE THERAPY 08/21/2013 ECT performed by Mitchell Bunch MD at [facility] OR ??? PRO ELECTROCONVULSIVE THERAPY 08/23/2013 ECT performed by Brandie Rios MD at [facility] OR ??? PRO ELECTROCONVULSIVE THERAPY 08/30/2013 ECT performed by Jeremy Condon MD at [facility] OR ??? PRO ELECTROCONVULSIVE THERAPY 09/06/2013 ECT performed by Jeremy Condon MD at [facility] OR ??? PRO ELECTROCONVULSIVE THERAPY 09/27/2013 ECT performed by Jeremy Condon MD at [facility] OR ??? PRO ELECTROCONVULSIVE THERAPY 10/11/2013 ECT performed by Jeremy Condon MD at [facility] OR ??? PRO ELECTROCONVULSIVE THERAPY 10/25/2013 ECT performed by Robert Gabriel MD at [facility] OR ??? PRO ELECTROCONVULSIVE THERAPY 11/29/2013 ECT performed by João Pratt MD at [facility] OR ??? PRO ELECTROCONVULSIVE THERAPY 12/11/2013 ECT performed by Mick De Leon MD at [facility] OR ??? PRO ELECTROCONVULSIVE THERAPY 12/27/2013 ECT performed by Brandie Rios MD at [facility] OR ALLERGIES: Allergies Allergen Reactions ??? Latex Hives ??? Sulfa (Sulfonamide Antibiotics) Hives ??? Trazodone Other (See Comments) headache ??? Lactose Intolerance [Lactase] Diarrhea MEDICATIONS: Medications Prior to Admission Medication Sig Dispense Refill Last Dose ??? spironolactone (ALDACTONE) 50 mg Tablet TAKE THREE TABLETS BY MOUTH EVERY DAY 180 tablet 3 ??? LORazepam (Ativan) 1 mg Tablet ??? cholecalciferol, Vitamin D3, 125 mcg (5,000 [...] Sleep. ??? busPIRone (BUSPAR) 30 mg Tablet ??? lamoTRIgine (LAMICTAL) 100 mg Tablet Take 200 mg by mouth daily. ??? mirtazapine (REMERON) 30 mg tablet Take 1 tablet by mouth nightly. Indications: Major Depressive Disorder 30 tablet 0 FAMILY HISTORY: Unable to obtain SOCIAL HISTORY: Alcohol: Unable to obtain Tobacco: Unable to obtain Drug: Unable to obtain Pertinent social details: multiple prior suicide attempts involving overdoses in the past REVIEW OF SYSTEMS: complete 10 system ROS performed with pertinent findings below. See HPI PHYSICAL EXAM: VITALS: Patient Vitals for the past 24 hrs: Temp Heart Rate From SP02 Pulse Resp BP SpO2 FiO2 (%) O2 Device 01/06/22 2300 37.3 ??C (99.1 ??F) 80 bpm 80 16 136/75 99 % 30 % Ventilator 01/07/22 0000 37.1 ??C (98.78 ??F) 54 bpm 54 19 123/69 100 % 25 % Ventilator 01/07/22 0200 36.8 ??C (98.24 ??F) 59 bpm 59 18 128/67 100 % -- -- 01/07/22 0250 -- -- -- 18 -- 100 % -- -- 01/07/22 0400 37.3 ??C (99.14 ??F) 63 bpm 63 18 114/53 100 % -- -- 01/07/22 0430 -- -- -- 16 -- 100 % -- -- 01/07/22 0505 -- -- -- -- 133/61 -- -- -- 01/07/22 0512 37.4 ??C (99.32 ??F) 58 bpm 59 15 -- 100 % -- -- 01/07/22 0600 37.2 ??C (98.96 ??F) 58 bpm 57 16 108/60 100 % -- -- 01/07/22 0601 37.2 ??C (98.96 ??F) 58 bpm 56 16 -- 100 % -- -- GENERAL: Intubated and sedated, following some basic commands HEAD: Normocephalic, without obvious abnormality, atraumatic FACE: Pupils: equal, round, reactive to light, no periorbital ecchymoses; upward gauze Tympanic Membranes: not visualized Midface: no tenderness, no swelling, no contusions, no lacerations and no abrasions over entire face Oropharynx: nonbloody, moist mucous membranes, no lacerations, no malocclusion and no chipped or missing teeth NECK: unable to assess tenderness to palpation, trachea midline, no masses, no swelling, no contusions and no abrasions LUNG: equal, clear breath sounds bilaterally and no crepitus CARDIAC: Regular rate and rhythm or without murmur or extra heart sounds ABDOMEN/GI: soft, non-tender, non-distended, no abrasions and no contusions PELVIS: stable to AP and/or lateral compression RECTAL: Deffered EXTREMITIES: normal and symmetric passive movement, normal passive range of motion, no joint swelling, bilateral wrists with lacerations, no exposed vessels, tendons, right laceration with exposed muscle belly SPINE: no deformity, no stepoffs, unable to assess tenderness to palpation and no abrasions over cervical spine, thoracic spine and/or lumbar spine SKIN: no lacerations, abrasions or contusions on complete skin exam other then noted above NEURO: Mental Status: open eyes to command, gave thumbs up to command Cranial Nerves: Unable to assess Motor: Unable to assess Sensory: Unable to assess FAST: [X] Attending staff present [ ] Attending staff NOT present Findings: Right Upper Quadrant [X] No fluid [ ] Fluid Left Upper Quadrant [X] No fluid [ ] Fluid Pericardium [X] No fluid [ ] Fluid Pelvis [X] No fluid [ ] Fluid Right Lung [X] No pneumothorax [ ] Pneumothorax Left Lung [X] No pneumothorax [ ] Pneumothorax LABORATORY: Recent Results (from the past 24 hour(s)) BLOOD GAS 2 VENOUS Result Value Ref Range pH Everardo 7.28 (CRIT) 7.32 - 7.42 pCO2 Everardo 40 (L) 41 - 51 mmHg pO2 Everardo 40 25 - 40 mmHg HCO3 Everardo 18.5 mmol/L BE Everardo -8.1 mmol/L Hgb Blood Gas 11.8 11.7 - 15.5 g/dL O2HB Everardo 71.4 % COHB Everardo 0.3 % METHB Everardo 0.8 <=1.5 % Na Whole Blood 138 135 - 145 mmol/L K Whole Blood 4.0 3.5 - 5.0 mmol/L ICa Whole Blood 1.09 (L) 1.15 - 1.33 mmol/L CL Whole Blood 108 (H) 98 - 107 mmol/L Gluc Whole Bld 89 65 - 199 mg/dL Lactate WB 3.7 (H) 0.5 - 2.2 mmol/L FIO2 Everardo 30 % BGas Source Venous COVID-19 PCR Specimen: Nasopharyngeal Swab Symptoms->Surveillance Result Value Ref Range SARS-CoV-2 RNA PCR Not Detected Not Detected SARS-CoV-2 Source [employer] Swab Rapid Drug Screen, Urine (NERISSA Request) Result Value Ref Range NERISSA Conf Requested No NERISSA Requested See Comment Rapid Drug Screen w/o Confirmation, Urine Result Value Ref Range U Barbiturates Screen None Detected None Detected U Benzodiazepines Screen None Detected None Detected U Cocaine Screen None Detected None Detected U Methadone Metabolites Screen None Detected None Detected U Opiate Screen None Detected None Detected U Cannabinoid Screen None Detected None Detected U Oxycodone Screen None Detected None Detected U Buprenorphine Screen None Detected None Detected U Fentanyl Screen None Detected None Detected U Tricyclics Screen Presumptive Pos (A) None Detected U Ethanol Screen Positive (A) None Detected U Amphetamines Screen Presumptive Pos (A) None Detected U Adulterants Screen None Detected None Detected Comprehensive metabolic panel (non-fasting) Result Value Ref Range Glucose Lvl 90 65 - 199 mg/dL BUN 12 8 - 18 mg/dL Creatinine 0.78 0.70 - 1.20 mg/dL Sodium 140 135 - 145 mmol/L Potassium 4.3 3.5 - 5.0 mmol/L Chloride 107 98 - 107 mmol/L CO2 16 (L) 22 - 31 mmol/L Anion Gap 17 (H) 5 - 15 mmol/L Calcium 8.2 (L) 8.5 - 10.5 mg/dL Total Protein 5.3 (L) 6.1 - 8.0 g/dL Albumin 3.4 3.2 - 5.2 g/dL AST Not Perf 0 - 30 ALT 70 (H) 0 - 30 unit/L Alk Phos 39 35 - 105 unit/L Total Bilirubin 0.2 0.2 - 1.3 mg/dL Estimated GFR 81 >=60 mL/min/1.73 m?? Osmolality Result Value Ref Range Osmolality 302 (H) 275 - 295 mOsm/kg Salicylate Result Value Ref Range Salicylate Lvl 4 mg/L Acetaminophen level Result Value Ref Range Acetamin Lvl <5 (L) 10 - 30 mg/L Ethanol Level Result Value Ref Range Ethanol Lvl 392 (H) <=99 mg/L Prothrombin Time Result Value Ref Range PT 12.4 9.4 - 12.5 sec INR 1.1 APTT Result Value Ref Range PTT 25 25 - 37 sec Magnesium Result Value Ref Range Magnesium 0.64 (L) 0.69 - 1.07 mmol/L Phosphorus Result Value Ref Range Phosphorus 3.0 2.5 - 4.5 mg/dL Hemogram Result Value Ref Range WBC 6.9 4.0 - 9.5 x10(3)/mcL RBC 3.22 (L) 4.00 - 5.21 x10(6)/mcL Hemoglobin 10.7 (L) 11.7 - 15.5 g/dL Hematocrit 32.2 (L) 35.7 - 45.8 % MCV 100.0 (H) 82.6 - 94.4 fL MCH 33.2 (H) 27.1 - 32.0 pg MCHC 33.2 31.7 - 35.0 g/dL Platelets 195 145 - 357 x10(3)/mcL RDWSD 43.4 37.0 - 46.0 fL RDWCV 11.9 11.5 - 14.1 % MPV 10.9 7.6 - 12.9 fL nRBC % Auto 0.0 % nRBC Abs Auto 0.000 0.000 - 0.000 x10(3)/mcL Differential, Automated Result Value Ref Range Neutrophils % 89.3 % Neutr Abs (ANC) 6.13 (H) 1.70 - 6.10 x10(3)/mcL Lymphocytes % 6.4 % Lymphocytes Abs 0.4 (L) 0.9 - 3.2 x10(3)/mcL Monocytes % 3.9 % Monocyte Abs 0.3 0.3 - 0.9 x10(3)/mcL Eosinophils % 0.0 % Eosinophils Abs 0.0 0.0 - 0.4 x10(3)/mcL Basophils % 0.0 % Basophils Abs 0.0 0.0 - 0.1 x10(3)/mcL Immature Gran % 0.40 % Diana Gran Abs 0.03 0.00 - 0.04 x10(3)/mcL ABO/Rh Typing Result Value Ref Range ABORh Type O Pos Antibody screen Result Value Ref Range Ab Screen Interp Negative Expires at 2359 on: 01/10/2022 ABORH Recheck Status Result Value Ref Range ABORH Type Recheck Completed Type and Screen Validity Result Value Ref Range T&S only valid at [facility] [place] BLOOD GAS 2 ARTERIAL Result Value Ref Range pH Art 7.42 7.35 - 7.45 pCO2 Art 27 (L) 35 - 45 mmHg pO2 Art 119 (H) 85 - 104 mmHg HCO3 Art 17.0 (L) 20.0 - 26.0 mmol/L BE Art -7.5 (L) -3.0 - 3.0 mmol/L Hgb Blood Gas 12.6 11.7 - 15.5 g/dL O2HB Art 97.2 (H) 94.0 - 97.0 % COHB Art 0.3 % METHB Art 0.6 <=1.5 % Na Whole Blood 138 135 - 145 mmol/L K Whole Blood 4.2 3.5 - 5.0 mmol/L ICa Whole Blood 1.12 (L) 1.15 - 1.33 mmol/L CL Whole Blood 108 (H) 98 - 107 mmol/L Gluc Whole Bld 111 65 - 199 mg/dL Lactate WB 3.0 (H) 0.5 - 2.2 mmol/L FIO2 Art 25 % PF Ratio Art 476 Urinalysis with reflex Culture Specimen: Indwelling Catheter Urine Result Value Ref Range Glucose UA 100 (A) Negative mg/dL Protein UA Negative Negative mg/dL Bilirubin UA Negative Negative mg/dL Urobilinogen UA Normal Normal mg/dL pH UA 5.0 5.0 - 8.0 Blood UA Negative Negative mg/dL Ketones UA 40 (A) Negative mg/dL Nitrite UA Negative Negative Leukocytes UA Negative Negative mcL Appearance UA Clear Clear Spec Dutton UA 1.019 1.005 - 1.030 Color UA Yellow Yellow Culture Reflexed No RADIOLOGY: XR Chest - * Endotracheal tube 10 cm above the emmanuel. Please advance. * Enteric tube courses below the diaphragm and beyond the [id number]. * Minimal central pulmonary vascular congestion. XR abdomen- Enteric tube terminates in the gastric antrum. XR Pelvis- No acute fracture or dislocation. CT Head- No acute intracranial pathology. CT Cervical Spine- * No acute fracture or dislocation. * Minimal C3-C4, C4-C5 and C5-C6 retrolistheses. * Multilevel degenerative changes as detailed above. Incidental Radiographic Findings: N/A Procedures Performed: Intubation: Yes performed in the field Yuan Cath: Yes performed OSH Central Line: No Chest Tube: No Sutures: Yes Performed by trauma surgery in MICU Other: none Assessment/Summary of Injuries: 61 y.o. female s/p wrist laceration. Injuries identified on primary and secondary survey include: 1. Bilateral wrist lacerations Recommendations: ?? S/p bilateral wrist lacerations repair, remove in 7-10 days ?? Rest of care per MICU ?? Recommend 3 days of IV Unasyn to prevent tendonitis in the setting of exposed tendons ?? Please ensure tetanus booster is up to date. If not, please administer a dose ?? Tertiary survey in AM ?? Continue C collar. Please re engage for Trauma surgery once extubated and off sedation for C spine clearance Lauren Rangel MD [phone] 01/07/2022 6:44 AM Attending Addendum I have seen and examined the patient, I have reviewed the vitals, labs and pertinent imaging. I have discussed the documentation above and agree, with the following comments: Ms. Fields was admitted to the MICU after concern for suicide attempt with overdose and bilateral wrist lacerations. She was found down in a shed by her family. Given the unclear circumstancesand her altered mental status, recommended CT head and Cspine and collar placed. CT head without evidence of ICH. CT Cspine without traumatic injury however given degenerative changes/etc cannot clear the collar at this time. Bilateral wrist lacerations washed out and closed - no evidence of venousor arterial injury with exploration, no evidence of tendon injury. Recommend unasyn given exposed tendon. Recommend tetanus booster if immunization not up to date. Will need to remain in Ccollar until able to participate in exam - if not extubated in near future can also consider MRI cspine if other MRI imaging planned for any reason. No other visible trauma on exam. CXR and pelvis XR without concern for injury. Please contact us if new concerns arise acutely. Alexia Rossi MD [phone] documented in this encounter Plan of Treatment Not on file documented as of this encounter Procedures Procedure Name Priority Date/Time Associated Diagnosis Comments RAPID COVID-19 PCR ([facility]D/[facility]) Routine 01/18/2022 12:57 PM EDT HEMOGRAM Routine 01/18/2022 3:25 AM EDT DIFFERENTIAL, AUTOMATED Routine 01/18/2022 3:25 AM EDT HC CBC,PLT & AUTO DIFF Routine 3:25 AM EDT HC PHOSPHORUS, SERUM Routine 01/18/2022 3:25 AM EDT HC MAGNESIUM, SERUM Routine 01/18/2022 3 :25 AM EDT BASIC METABOLIC PANEL Routine 01/18/2022 3:25 AM EDT HEMOGRAM Routine 01/17/2022 1:42 AM EDT DIFFERENTIAL, AUTOMATED Routine 01/17/2022 1:42 AM EDT HC CBC,PLT & AUTO DIFF Routine 2 1:42 AM EDT HC PHOSPHORUS, SERUM Routine 01/17/2022 1:42 AM EDT HC MAGNESIUM, SERUM Routine 01/17/2022 1 :42 AM EDT BASIC METABOLIC PANEL Routine 01/17/2022 1:42 AM EDT HEMOGRAM Routine 01/16/2022 1:27 AM EDT DIFFERENTIAL, AUTOMATED Routine 01/16/2022 1:27 AM EDT HC CBC,PLT & AUTO DIFF Routine 2 1:27 AM EDT HC PHOSPHORUS, SERUM Routine 01/16/2022 1:27 AM EDT HC MAGNESIUM, SERUM Routine 01/16/2022 1 :27 AM EDT BASIC METABOLIC PANEL Routine 01/16/2022 1:27 AM EDT MRI CERVICAL SPINE WO CONTRAST STAT 01/15/2022 6:51 PM EDT ECHO COMPLETE Routine 01/15/2022 2:38 PM EDT Chest pain, unspecified type XR CERVICAL SPINE AP FLEXION AND EXTENSION ONLY STAT 01/15/2022 11:30 AM EDT HEMOGRAM Routine 01/15/2022 5:30 AM EDT DIFFERENTIAL, AUTOMATED Routine 01/15/2022 5:30 AM EDT HC CBC,PLT & AUTO DIFF Routine 2 5:30 AM EDT HC PHOSPHORUS, SERUM Routine 01/15/2022 5:30 AM EDT HC MAGNESIUM, SERUM Routine 01/15/2022 5 :30 AM EDT BASIC METABOLIC PANEL Routine 01/15/2022 5:30 AM EDT SCAN, PERIPHERAL BLOOD Routine 2 3:40 AM EDT HEMOGRAM Routine 01/14/2022 3:40 AM EDT DIFFERENTIAL, AUTOMATED Routine 01/14/2022 3:40 AM EDT HC CBC,PLT & AUTO DIFF Routine 2 3:40 AM EDT PHOSPHORUS Routine 01/14/2022 3:40 AM EDT HC MAGNESIUM, SERUM Routine 01/14/2022 3 :40 AM EDT BASIC METABOLIC PANEL Routine 01/14/2022 3:40 AM EDT SCAN, PERIPHERAL BLOOD Routine 2 5:46 AM EDT HEMOGRAM Routine 01/13/2022 5:46 AM EDT DIFFERENTIAL, AUTOMATED Routine 01/13/2022 5:46 AM EDT HC CBC,PLT & AUTO DIFF Routine 2 5:46 AM EDT PHOSPHORUS Routine 01/13/2022 5:46 AM EDT HC MAGNESIUM, SERUM Routine 01/13/2022 5 :46 AM EDT BASIC METABOLIC PANEL Routine 01/13/2022 5:46 AM EDT XR ABDOMEN 1 VIEW STAT 01/12/2022 11: 54 PM EDT EKG 12-LEAD Routine 01/12/2022 11:53 PM EDT Chest pain, unspecified type HC POTASSIUM Timed 01/12/2022 5:55 PM EDT XR CHEST ONE VIEW STAT 01/12/2022 2:3 5 PM EDT HC TROPONIN T STAT 01/12/2022 1:50 PM EDT EKG 12-LEAD STAT 01/12/2022 1:36 PM EDT Chest pain, unspecified type HC POTASSIUM Routine 01/12/2022 11:04 AM EDT HEMOGRAM Routine 01/12/2022 1:00 AM EDT DIFFERENTIAL, AUTOMATED Routine 01/12/2022 1:00 AM EDT HC CBC,PLT & AUTO DIFF Routine 1:00 AM EDT HC MAGNESIUM, SERUM Routine 01/12/2022 1 :00 AM EDT BASIC METABOLIC PANEL Routine 01/12/2022 1:00 AM EDT XR CHEST ONE VIEW STAT 01/11/2022 3:4 1 PM EDT XR ABDOMEN 1 VIEW Routine 01/11/2022 2:1 6 PM EDT MRI BRAIN WO CONTRAST STAT 01/11/2022 11:54 AM EDT HEMOGRAM Routine 01/11/2022 1:10 AM EDT DIFFERENTIAL, AUTOMATED Routine 01/11/2022 1:10 AM EDT HC CBC,PLT & AUTO DIFF Routine 1:10 AM EDT HC CREATINE PHOSPHOKINASE, SERUM Routine 01/11/2022 1:10 AM EDT BASIC METABOLIC PANEL Routine 01/11/2022 1:10 AM EDT HC POTASSIUM Routine 01/10/2022 2:05 PM EDT AIRWAY CLEARANCE PER RT PROTOCOL Routine 01/10/2022 12:36 PM EDT HEMOGRAM Routine 01/10/2022 3:22 AM EDT DIFFERENTIAL, AUTOMATED Routine 01/10/2022 3:22 AM EDT HC CBC,PLT & AUTO DIFF Routine 3:22 AM EDT HC CREATINE PHOSPHOKINASE, SERUM Routine 01/10/2022 3:22 AM EDT BASIC METABOLIC PANEL Routine 01/10/2022 3:22 AM EDT XR CHEST ONE VIEW STAT 01/09/2022 9:2 4 PM EDT COVID-19 PCR Routine 01/09/2022 8:55 PM EDT HC POTASSIUM Routine 01/09/2022 1:40 PM EDT HEMOGRAM Routine 01/09/2022 1:58 AM EDT DIFFERENTIAL, AUTOMATED Routine 01/09/2022 1:58 AM EDT HC CBC,PLT & AUTO DIFF Routine 2 1:58 AM EDT MAGNESIUM Routine 01/09/2022 1:58 AM EDT CK Routine 01/09/2022 1:58 AM EDT BASIC METABOLIC PANEL Routine 01/09/2022 1:58 AM EDT HC CREATINE PHOSPHOKINASE, SERUM STAT 01/08/2022 11:05 AM EDT XR CHEST ONE VIEW STAT 01/08/2022 6:5 3 AM EDT HEMOGRAM Routine 01/08/2022 1:42 AM EDT DIFFERENTIAL, AUTOMATED Routine 01/08/2022 1:42 AM EDT HC CBC,PLT & AUTO DIFF Routine 1:42 AM EDT BASIC METABOLIC PANEL Routine 01/08/2022 1:42 AM EDT HC CREATINE PHOSPHOKINASE, SERUM Routine 01/07/2022 10:55 PM EDT ZEEG AWAKE, ASLEEP, DROWSY STAT 01/07/2022 7:10 PM EDT BLOOD GAS ARTERIAL POC Routine 5:07 PM EDT MRI BRAIN WO CONTRAST STAT 01/07/2022 4:18 PM EDT HC L-LACTATE Routine 01/07/2022 2:10 PM EDT HC PROLACTIN ASSAY, SERUM Routine 01/07/2022 2:10 PM EDT HC PHOSPHORUS, SERUM Routine 01/07/2022 2:10 PM EDT HC MAGNESIUM, SERUM Routine 01/07/2022 2 :10 PM EDT HC CREATINE PHOSPHOKINASE, SERUM Routine 01/07/2022 2:10 PM EDT BASIC METABOLIC PANEL Routine 01/07/2022 2:10 PM EDT GREEN TUBE HOLD Routine 01/07/2022 11:00 AM EDT LAVENDER TUBE HOLD Routine 01/07/2022 11 :00 AM EDT XR PELVIS STAT 01/07/2022 7:[address] CERVICAL SPINE WO CONTRAST STAT 01/07/2022 5:[address] HEAD WO CONTRAST (GENERIC) STAT 01/07/2022 5:07 AM EDT URINALYSIS WITH REFLEX CULTURE Routine 01/07/2022 4:11 AM EDT XR ABDOMEN 1 VIEW STAT 01/07/2022 1:3 5 AM EDT XR CHEST ONE VIEW STAT 01/07/2022 1:3 5 AM EDT BLOOD GAS ARTERIAL POC Routine 1:31 AM EDT TYPE AND SCREEN VALIDITY Routine 01/07/2022 12:19 AM EDT ABORH RECHECK STATUS Routine 01/07/2022 12:19 AM EDT HEMOGRAM Routine 01/07/2022 12:19 AM EDT DIFFERENTIAL, AUTOMATED Routine 01/07/2022 12:19 AM EDT ABO/RH TYPING Routine 01/07/2022 12:19 AM EDT HC BLOOD CULTURE- STAT 01/07/2022 12: 19 AM EDT HC PARTIAL THROMBOPLASTIN TIME Routine 01/07/2022 12:19 AM EDT HC PROTHROMBIN TIME Routine 01/07/2022 1 2:19 AM EDT HC CBC,PLT & AUTO DIFF Routine 12:19 AM EDT ANTIBODY SCREEN Routine 01/07/2022 12:19 AM EDT HC ABO-MICROTITER Routine 01/07/2022 12: 19 AM EDT HC PHOSPHORUS, SERUM Routine 01/07/2022 12:19 AM EDT HC OSMOLALITY Routine 01/07/2022 12:19 AM EDT HC MAGNESIUM, SERUM Routine 01/07/2022 1 2:19 AM EDT HC ALCOHOL, BLOOD Routine 01/07/2022 12: 19 AM EDT HC ACETAMINOPHEN, SERUM Routine 01/07/2022 12:19 AM EDT HC SALICYLATES, SERUM Routine 01/07/2022 12:19 AM EDT COMPREHENSIVE METABOLIC PANEL Routine 01/07/2022 12:19 AM EDT EKG 12-LEAD Routine 01/07/2022 12:05 AM EDT Intentional overdose, initial encounter RAPID COVID-19 PCR ([facility]) Routine 01/06/2022 11:59 PM EDT RAPID DRUG SCREEN, URINE Routine 01/06/2022 11:59 PM EDT RAPID DRUG SCREEN W/O CONFIRMATION, URINE Routine 01/06/2022 11:59 PM EDT BLOOD GAS VENOUS POC Routine 01/06/2022 11:44 PM EDT documented in this encounter Results * COVID-19 PCR (01/18/2022 12:57 PM EDT) [facility] SARS-CoV-2 RNA (Rapid) Not Detected Not Detected [facility] Comment: This result should be interpreted in combination with the clinical observations, patient history and epidemiological information. For testing of asymptomatic individuals, assay performance characteristics and clinical utility have not been evaluated. Testing for SARS-CoV-2 (Severe acute respiratory syndrome coronavirus 2, formerly known as 2019 novel coronavirus or 2019-nCoV) to aid in the diagnosis of COVID-19 is performed using the Simplexa COVID-19 Direct Assay by [employer] as authorized by the FDA issued Emergency Use Authorization (EUA). This assay is intended for In-vitro Diagnostic (IVD) use with nasopharyngeal swabs collected from individuals meeting the CDC criteria for testing. The assay is performed based on the instructions for use and additional guidance provided by the FDA. Testing is performed in the Microbiology Laboratory within the Department of Pathology and Laboratory Medicine at [facility], certified under the Clinical Laboratory Improvement Amendments of 1988 (CLIA), 42 U.S.C. section 263a, to perform high complexity tests. Assay performance has been verified according to clinical laboratory regulatory requirements. Test results are provided above. A result of Not Detected indicates that the viral RNA target is not present but does not preclude SARS-CoV-2 infection. False negative results may occur if a specimen is improperly collected, transported or handled; if amplification inhibitors are present; or if inadequate numbers of viral particles are present in the specimen. A result of Detected suggests a current or recent infection and the patient is presumed to be infected. Positive and negative predictive values for this test are highly dependent on disease prevalence. A result of Invalid indicates the inability to conclusively determine the presence or absence of SARS-CoV-2 RNA in the sample which can be due to a variety of factors. Recollection is recommended in the case of an invalid result. CDC COVID-19 criteria for testing on human specimens and clinical management guidance information are available at the CDC Coronavirus Disease 2019 (COVID-19) webpage under Information for Healthcare Professionals (https://www.cdc.gov/coronavirus/2019-ncov/hcp/index.html). Additional information about this and other EUA tests can be found in provider and patient fact sheets at the following FDA website: https://www.fda.gov/medical-devices/asudmvejhva-hucbfqc-5817-agihe-92-fxlytpxay- use-a xqlkrixpahfqm-ubwntqq-ekcoxgq/hzkeb-clbndokaybd-qoai SARS-CoV-2 Source [employer] Swab [facility] Nasopharyngeal Swab 01/19/20 12:57 PM EDT 01/18/2022 1:22 PM EDT Comment:Symptoms->Surveillan ce Narrative Resulting Agency Comment Spec In Lab Claudy Estevez MD MICROBIOLOGY - GENER AL ORDERABLES [facility] [place] [address] * (ABNORMAL) Differential, Automated (01/18/2022 3:25 AM EDT) Neutrophil % 61.8 % [facility] Neutrophil Absolute 4.46 1.70 - 6.10 x10(3)/mc L [facility] Lymph % 23.9 % [facility] Lymphocytes Abs 1.7 0.9 - 3.2 x10(3)/mc L [facility] Monocyte % 6.7 % [facility] Monocyte Abs 0.5 0.3 - 0.9 x10(3)/mc L [facility] Eos % 1.7 % [facility] Eosinophils Abs 0.1 0.0 - 0.4 x10(3)/mc L [facility] Basophil % 0.8 % [facility] Baso Absolute 0.1 0.0 - 0.1 x10(3)/mc L [facility] Immature Gran % 5.10 % [facility] Comment: Immature granulocytes(IG's)percentage and absolute count will include metamyelocytes, myelocytes, and promyelocytes. Blood smears from CBCs yielding IG's will be scanned manually for concordance. If this scan disagrees with the automated IG or if promyelocytes are noted, a manual differential will be performed. Immature Gran Absolute 0.37(H) 0.00 - 0.04 x10(3)/mc L [facility] Blood 01/18/2022 3:25 AM EDT 01/18/2022 3:31 AM EDT Narrative Resulting Agency Comment Spec In Lab Tamela Polk MD HEMATOLOGY ORDERABLE S [facility] [place] [address] * (ABNORMAL) Hemogram (01/18/2022 3:25 AM EDT) White Blood Cell 7.2 4.0 - 9.5 x10(3)/mc L [facility] Red Blood Cell 3.59(L) 4.00 - 5.21 x10(6)/mc L [facility] Hemoglobin 11.8 11.7 - 15.5 g/dL [facility] Hematocrit 34.7(L) 35.7 - 45.8 % [facility] Mean Cell Volume 96.7(H) 82.6 - 94.4 fL [facility] Mean Cell Hemoglobin 32.9(H) 27.1 - 32.0 pg [facility] Mean Cell Hemoglobin Concentration 34.0 31.7 - 35.0 g/dL [facility] Platelet 626(H) 145 - 357 x10(3)/mc L [facility] RDW Standard Deviation 42.6 37.0 - 46.0 [facility] RDW coefficient of variation 12.1 11.5 - 14.1 % [facility] Mean Platelet Volume 8.7 7.6 - 12.9 [facility] NRBC% auto 0.0 % [facility] NRBC Absolute 0.000 0.000 - 0.000 x10(3)/mc L [facility] Blood 01/18/2022 3:25 AM EDT 01/18/2022 3:31 AM EDT Narrative Resulting Agency Comment Spec In Lab Tamela Polk MD HEMATOLOGY ORDERABLE S [facility] [place] [address] * Phosphorus (01/18/2022 3:25 AM EDT) Pathologist [facility] Phosphorus 4.4 2.5 - 4.5 mg/dL [facility] Blood 01/18/2022 3:25 AM EDT 01/18/2022 3:31 AM EDT Narrative Resulting Agency Comment Spec In Lab Francisco Juan Gale DO CHEMISTRY ORDERABLES Performing Organization Address [facility] Co de Phone Number [facility] [place] [address] * Magnesium (01/18/2022 3:25 AM EDT) Pathologist [facility] Magnesium 0.85 0.69 - 1.07 mmol/L [facility] Blood 01/18/2022 3:25 AM EDT 01/18/2022 3:31 AM EDT Narrative Resulting Agency Comment Spec In Lab Francisco Juan Highwindsjuan DO CHEMISTRY ORDERABLES Performing Organization Address [facility] Co de Phone Number [facility] [place] [address] * (ABNORMAL) Basic Metabolic Panel (non-fasting) (01/18/2022 3:25 AM EDT) [facility] Glucose 92 65 - 199 mg/dL [facility] Comment:Diabetes: >=200 mg/d L plus symptoms Blood Urea Nitrogen 17 8 - 18 mg/dL [facility] Creatinine 0.54(L) 0.70 - 1.20 mg/dL [facility] Sodium 139 135 - 145 mmol/L [facility] Potassium 3.9 3.5 - 5.0 mmol/L [facility] Comment: Please note: ??Patients with WBC >100,000 may have falsely elevated Potassium levels. ??For accurate Potassium quantification in these patients send serum separator tube (gold top) for subsequent determinations. ??Contact the Clinical Chemistry Laboratory if there are any questions. Chloride 105 98 - 107 mmol/L [facility] Carbon Dioxide 23 22 - 31 mmol/L [facility] Anion Gap 11 5 - 15 mmol/L [facility] Calcium 9.5 8.5 - 10.5 mg/dL [facility] Est Glomerular Filtration Rate 101 >=60 mL/min/1. 73 m?? [facility] Comment: This patient? s estimated glomerular filtration rate (eGFR) is between 101 mL/min/1.73 m2 (patients with less muscle mass) and 117 mL/min/1.73 m2 (patients with more muscle mass) [...] and symptoms in addition to eGFR. Blood 01/18/2022 3:25 AM EDT 01/18/2022 3:31 AM EDT Narrative Resulting Agency Comment Spec In Lab Francisco Lynne DO CHEMISTRY ORDERABLES [facility] [place] [address] * (ABNORMAL) Differential, Automated (01/17/2022 1:42 AM EDT) Neutrophil % 61.1 % [facility] Neutrophil Absolute 5.00 1.70 - 6.10 x10(3)/mc L [facility] Lymph % 21.0 % [facility] Lymphocytes Abs 1.7 0.9 - 3.2 x10(3)/mc L [facility] Monocyte % 8.4 % [facility] Monocyte Abs 0.7 0.3 - 0.9 x10(3)/mc L [facility] Eos % 1.3 % [facility] Eosinophils Abs 0.1 0.0 - 0.4 x10(3)/mc L [facility] Basophil % 1.0 % [facility] Baso Absolute 0.1 0.0 - 0.1 x10(3)/[facility] Immature Gran % 7.20 % [facility] Comment: Immature granulocytes(IG's)percentage and absolute count will include metamyelocytes, myelocytes, and promyelocytes. Blood smears from CBCs yielding IG's will be scanned manually for concordance. If this scan disagrees with the automated IG or if promyelocytes are noted, a manual differential will be performed. Immature Gran Absolute 0.59(H) 0.00 - 0.04 x10(3)/[facility] Blood 01/17/2022 1:42 AM EDT 01/17/2022 1:52 AM EDT Narrative Resulting Agency Comment Spec In Lab Tamela Polk MD HEMATOLOGY ORDERABLE S Performing Organization Address City/State/[facility] Co de Phone Number [facility] [place] [address] * (ABNORMAL) Hemogram (01/17/2022 1:42 AM EDT) White Blood Cell 8.2 4.0 - 9.5 x10(3)/[facility] LABORATORY Red Blood Cell 3.53(L) 4.00 - 5.21 x10(6)/[facility] LABORATORY Hemoglobin 11.7 11.7 - 15.5 g/dL [facility] Hematocrit 34.1(L) 35.7 - 45.8 % [facility] Mean Cell Volume 96.6(H) 82.6 - 94.4 fL [facility] Mean Cell Hemoglobin 33.1(H) 27.1 - 32.0 pg [facility] Mean Cell Hemoglobin Concentration 34.3 31.7 - 35.0 g/dL [facility] Platelet 561(H) 145 - 357 x10(3)/[facility] LABORATORY RDW Standard Deviation 42.5 37.0 - 46.0 fL [facility] RDW coefficient of variation 12.1 11.5 - 14.1 % [facility] Mean Platelet Volume 8.7 7.6 - 12.9 fL [facility] NRBC% auto 0.0 % [facility] NRBC Absolute 0.000 0.000 - 0.000 x10(3)/mc L [facility] Blood 01/17/2022 1:42 AM EDT 01/17/2022 1:52 AM EDT Narrative Resulting Agency Comment Spec In Lab Tamela Polk MD HEMATOLOGY ORDERABLE S Performing Organization Address [facility]/ZIP Co de Phone Number [facility] [place] [address] * Phosphorus (01/17/2022 1:42 AM EDT) Phosphorus 4.1 2.5 - 4.5 mg/dL [facility] Blood 01/17/2022 1:42 AM EDT 01/17/2022 1:52 AM EDT Narrative Resulting Agency Comment Spec In Lab Francisco E Gale DO CHEMISTRY ORDERABLES Performing Organization Address [facility] Co de Phone Number [facility] [place] [address] * Magnesium (01/17/2022 1:42 AM EDT) Magnesium 0.85 0.69 - 1.07 mmol/L [facility] Blood 01/17/2022 1:42 AM EDT 01/17/2022 1:52 AM EDT Narrative Resulting Agency Comment Spec In Lab Francisco E Gale DO CHEMISTRY ORDERABLES Performing Organization Address [facility]/ZIP Co de Phone Number [facility] [place] [address] * (ABNORMAL) Basic Metabolic Panel (non-fasting) (01/17/2022 1:42 AM EDT) Glucose 96 65 - 199 mg/dL [facility] Comment:Diabetes: >=200 mg/d L plus symptoms Blood Urea Nitrogen 13 8 - 18 mg/dL [facility] Creatinine 0.53(L) 0.70 - 1.20 mg/dL [facility] Sodium 140 135 - 145 mmol/L [facility] Potassium 4.0 3.5 - 5.0 mmol/L [facility] Comment: Please note: ??Patients with WBC >100,000 may have falsely elevated Potassium levels. ??For accurate Potassium quantification in these patients send serum separator tube (gold top) for subsequent determinations. ??Contact the Clinical Chemistry Laboratory if there are any questions. Chloride 104 98 - 107 mmol/L [facility] Carbon Dioxide 23 22 - 31 mmol/L [facility] Anion Gap 13 5 - 15 mmol/L [facility] Calcium 9.5 8.5 - 10.5 mg/dL [facility] Est Glomerular Filtration Rate 102 >=60 mL/min/1. 73 m?? [facility] Comment: This patient? s estimated glomerular filtration rate (eGFR) is between 102 mL/min/1.73 m2 (patients with less muscle mass) and 118 mL/min/1.73 m2 (patients with more muscle mass) [...] and symptoms in addition to eGFR. Blood 01/17/2022 1:42 AM EDT 01/17/2022 1:52 AM EDT Narrative Resulting Agency Comment Spec In Lab Francisco Lynne DO CHEMISTRY ORDERABLES [facility] [place] [id number] * (ABNORMAL) Differential, Automated (01/16/2022 1:27 AM EDT) Pathologist [facility] Neutrophil % 58.4 % [facility] Neutrophil Absolute 4.85 1.70 - 6.10 x10(3)/ L [facility] Lymph % 20.6 % [facility] Lymphocytes Abs 1.7 0.9 - 3.2 x10(3)/[facility] LABORATORY Monocyte % 10.3 % [facility] Monocyte Abs 0.9 0.3 - 0.9 x10(3)/[facility] LABORATORY Eos % 1.4 % [facility] Eosinophils Abs 0.1 0.0 - 0.4 x10(3)/[facility] LABORATORY Basophil % 1.0 % [facility] Baso Absolute 0.1 0.0 - 0.1 x10(3)/[facility] LABORATORY Immature Gran % 8.30 % [facility] Comment: Immature granulocytes(IG's)percentage and absolute count will include metamyelocytes, myelocytes, and promyelocytes. Blood smears from CBCs yielding IG's will be scanned manually for concordance. If this scan disagrees with the automated IG or if promyelocytes are noted, a manual differential will be performed. Immature Gran Absolute 0.69(H) 0.00 - 0.04 x10(3)/[facility] LABORATORY Blood 01/16/2022 1:27 AM EDT 01/16/2022 1:38 AM EDT Narrative Resulting Agency Comment Spec In Lab Tamela Polk MD HEMATOLOGY ORDERABLE S [facility] [place] [address] * (ABNORMAL) Hemogram (01/16/2022 1:27 AM EDT) [facility] White Blood Cell 8.3 4.0 - 9.5 x10(3)/mc L [facility] Red Blood Cell 3.46(L) 4.00 - 5.21 x10(6)/mc L [facility] Hemoglobin 11.5(L) 11.7 - 15.5 g/dL [facility] Hematocrit 33.5(L) 35.7 - 45.8 % [facility] Mean Cell Volume 96.8(H) 82.6 - 94.4 fL [facility] Mean Cell Hemoglobin 33.2(H) 27.1 - 32.0 pg [facility] Mean Cell Hemoglobin Concentration 34.3 31.7 - 35.0 g/dL [facility] Platelet 440(H) 145 - 357 x10(3)/[facility] LABORATORY RDW Standard Deviation 42.2 37.0 - 46.0 fL [facility] RDW coefficient of variation 12.0 11.5 - 14.1 % [facility] Mean Platelet Volume 8.7 7.6 - 12.9 fL [facility] NRBC% auto 0.0 % [facility] NRBC Absolute 0.000 0.000 - 0.000 x10(3)/[facility] LABORATORY Blood 01/16/2022 1:27 AM EDT 01/16/2022 1:38 AM EDT Narrative Resulting Agency Comment Spec In Lab Tamela Polk MD HEMATOLOGY ORDERABLE S [facility] [place] [address] * Phosphorus (01/16/2022 1:27 AM EDT) Phosphorus 3.6 2.5 - 4.5 mg/dL [facility] Blood 01/16/2022 1:27 AM EDT 01/16/2022 1:38 AM EDT Narrative Resulting Agency Comment Spec In Lab Francisco Lynne DO CHEMISTRY ORDERABLES Performing Organization Address City/[facility]/ZIP Co de Phone Number [facility] [place] [address] * Magnesium (01/16/2022 1:27 AM EDT) Pathologist [facility] Magnesium 0.77 0.69 - 1.07 mmol/L [facility] Blood 01/16/2022 1:27 AM EDT 01/16/2022 1:38 AM EDT Narrative Resulting Agency Comment Spec In Lab Francisco Lynne DO CHEMISTRY ORDERABLES Performing Organization Address [facility] Co de Phone Number [facility] [place] [address] * (ABNORMAL) Basic Metabolic Panel (non-fasting) (01/16/2022 1:27 AM EDT) Pathologist [facility] Glucose 87 65 - 199 mg/dL [facility] Comment:Diabetes: >=200 mg/d L plus symptoms Blood Urea Nitrogen 12 8 - 18 mg/dL [facility] Creatinine 0.50(L) 0.70 - 1.20 mg/dL [facility] Sodium 139 135 - 145 mmol/L [facility] Potassium 3.4(L) 3.5 - 5.0 mmol/L [facility] Comment: Please note: ??Patients with WBC >100,000 may have falsely elevated Potassium levels. ??For accurate Potassium quantification in these patients send serum separator tube (gold top) for subsequent determinations. ??Contact the Clinical Chemistry Laboratory if there are any questions. Chloride 103 98 - 107 mmol/L [facility] Carbon Dioxide 22 22 - 31 mmol/L [facility] Anion Gap 14 5 - 15 mmol/L [facility] Calcium 9.3 8.5 - 10.5 mg/dL [facility] Est Glomerular Filtration Rate 104 >=60 mL/min/1. 73 m?? [facility] Comment: This patient? s estimated glomerular filtration rate (eGFR) is between 104 mL/min/1.73 m2 (patients with less muscle mass) and 120 mL/min/1.73 m2 (patients with more muscle mass) [...] and symptoms in addition to eGFR. Blood 01/16/2022 1:27 AM EDT 01/16/2022 1:38 AM EDT Narrative Resulting Agency Comment Spec In Lab Francisco Lynne DO CHEMISTRY ORDERABLES Performing Organization Address City/State/[facility] Co de Phone Number [facility] [place] [address] * MRI Cervical Spine wo Contrast (Generic) (01/15/2022 6:51 PM EDT) Anatomical Region Laterality Modality C-spine Magnetic Resonan ce Impressions 01/15/2022 7:01 PM EDT No MR evidence for acute cervical spine traumatic injury. Thank you for letting us participate in the care of this patient. ??If you are a health care provider and have any questions regarding this report, please contact the number below. ??For patients who have questions please contact the health plant health care technician that requested your imaging first. ? Narrative 01/15/2022 7:01 PM EDT EXAMINATION: MRI CERVICAL SPINE WO CONTRAST (GENERIC) CLINICAL HISTORY: 61F s/p suicide attempt, bony tenderness over Cspine, XR neck Slight dynamic instability at C4-C5 and C5-C6, MRI cspine per trauma TECHNIQUE: MRI of the cervical spine performed without intravenous contrast administration. Routine protocol. COMPARISON: Flexion/extension cervical spine plain films dated 01/15/2022. CT cervical spine dated 01/07/2022. FINDINGS: Several millimeters of degenerative retrolisthesis at C4-C5, C5-C6 and C6-C7. No abnormal bone marrow or soft tissue edema is identified. No ligamentous injuries. No prevertebral soft tissue swelling. There are small posterior disc osteophyte complexes at C4-C7 which mildly indents the thecal sac. No epidural collections. Moderate right-sided neural foraminal narrowing at C5-C6 on a degenerative basis. Severe bilateral neural foraminal narrowing at C6-C7 on a degenerative basis. The cervical cord is of normal size and density. Incidentally noted is prominence of the central spinal cord canal at C1. Procedure Note Alon Jules MD - 01/15/2022 EXAMINATION: MRI CERVICAL SPINE WO CONTRAST (GENERIC) CLINICAL HISTORY: 61F s/p suicide attempt, bony tenderness over Cspine, XRneck Slight dynamic instability at C4-C5 and C5-C6, MRI cspine per trauma TECHNIQUE: MRI of the cervical spine performed without intravenous contrastadministration. Routine protocol. COMPARISON: Flexion/extension cervical spine plain films dated 01/15/2022. CT cervicalspine dated 01/07/2022. FINDINGS: Several millimeters of degenerative retrolisthesis at C4-C5, C5-C6 andC6-C7. No abnormal bone marrow or soft tissue edema is identified. No ligamentous injuries. No prevertebral soft tissue swelling. There are small posterior disc osteophyte complexes at C4-C7 whichmildly indents the thecal sac. No epidural collections. Moderate right-sidedneural foraminal narrowing at C5-C6 on a degenerative basis. Severe bilateralneural foraminal narrowing at C6-C7 on a degenerative basis. The cervical cord is of normal size and density. Incidentally noted is prominence of the central spinal cord canal at C1. IMPRESSION No MR evidence for acute cervical spine traumatic injury. Thank you for letting us participate in the care of this patient. If youare a health care provider and have any questions regarding this report,please contact the number below. For patients who have questions please contactthe health plant health care technician that requested your imaging first. Francisco Lynne DO IMG MRI ORDERABLES * ECHO COMPLETE (01/15/2022 2:38 PM EDT) EF 75 HEART[facility] SYSTEM Anatomical Region Laterality Modality Other 01/15/2022 1:50 PM EDT Narrative 01/15/2022 3:44 PM EDT ?[facility] ? [facility] ?[address] ? [place] [address] ?Voice: ?Fax: ? Echocardiogram Report Name: AZIZA FIELDS ? Study Date: 01/15/2022 01:50 PMBP: 127/72 mmHg ? [id number]: 78 : 1960 ? Height: 168 cm ? Account: [id number] Age: 61 yrs ? Weight: 46 kg Gender: Female ?BSA: 1.5 m2 Ordering Physician: KRISTY^Juan Referring Physician: JOEY VILLARREAL Performed By: Farzad Sadler RDCS Reason For Study: Chest pain Interpreting Fellow: Eddy Caldwell. Exam Location: [facility]. Interpretation Summary - There is normal biventricular size and function with a left ventricular ejection fraction of 75%. - No significant valvular disease noted on this study. - There is trivial pericardial effusion. - There are bilateral pleural effusions. Procedure Complete-[id number]. Satisfactory quality. There is normal sinus rhythm. Left Ventricle Left ventricle is of normal size. Wall thickness is normal. There is no ventricular septal defect. Left ventricular systolic function is hyperdynamic. The left ventricular ejection fraction is 75% by Pearson's biplane. There are no segmental wall motion abnormalities. Right Ventricle The right ventricle is of normal size. Right ventricular systolic function is normal. Left Atrium The left atrium is normal. There is no evidence for a patent foramen ovale. Right Atrium The right atrium is normal. Aortic Valve The aortic valve is structurally normal. There is no aortic stenosis. There is no aortic regurgitation. Mitral Valve The mitral valve is structurally normal. There is trace mitral regurgitation. Tricuspid Valve The tricuspid valve is structurally normal. There is trace tricuspid regurgitation. Pulmonic Valve The pulmonic valve appears to be structurally and functionally normal. Great Arteries The aortic root is of normal size. No abnormalities are identified. Ascending aorta is normal in size. Venous Inferior vena cava is normal in size. Inferior vena cava collapse greater than 50% with respiration. Pericardium/Pleural There is a trivial pericardial effusion. Bilateral pleural effusions are present. Hemodynamics The estimated right atrial pressure is 3mmHg. Pulmonary artery hypertension could not be assessed due to inadequate tricuspid regurgitation jet. Left ventricular diastolic function is normal. Left ventricular filling pressure is normal. Ejection Fraction ?2D Measurements ? Volumes LV Biplane EF: 74.9 % ? IVSd: 0.89 cm ?LA Volume Index: ?LVIDd: 3.6 cm ?LVIDs: 2.8 cm ?39.5 ml/m2 ?LVPWd: 0.78 cm ? EDV Biplane: 52.8 ml ?LV mass(C)d: 84.0 grams ?EDV Biplane Index: 35.1 ? ESV Biplane: 13.2 ml ?LV mass(C)dI: 55.9 grams/m2 ?ESV Biplane Index: 8.8 ?Ao root diam: 2.9 cm ? SV(LVOT): 54.3 ml ?Ao root diam index: 1.9 ?LV Stroke Volume: 54.3 ml ?LVOT diam: 1.8 cm ?SI(LVOT): 36.2 ml/m2 ?TAPSE_phl: 2.2 cm Doppler MV E max yeimy: 77.3 cm/sec MV A max yeimy: 49.9 cm/sec MV E/A: 1.5 MV dec time: 0.23 sec Lat Peak E' Yeimy: 11.7 cm/sec E/ e' (lat): 6.6 Med Peak E' Yeimy: 10.3 cm/sec E/e' (med): 7.5 E/e' Average: 7.1 PI end-d yeimy: 96.4 cm/sec I ?WMSI = 1.00 ? % Normal = 100 ?Segments ??Size X - Cannot ?2 - ?4 - ?1-2 ? small Interpret ?1 - Normal ?? Hypokinetic 3 - Akinetic Dyskinetic ?? 3-5 ? moderate 5 - ? 6-14 ?large Aneurysmal ?15-16 ?? diffuse Procedure Note Skye Urrutia MD - 01/15/2022 [facility] [address] [place] [address] Voice: Fax: Echocardiogram Report Name: AZIZA FIELDS Study Date: 201:50 PMBP: 127/72 mmHg Patient Location: [address] HR: 78 : 1960 Height: 168 cm Account: [id number] Age: 61 yrs Weight: 46 kg Gender: Female BSA: 1.5 m2 Ordering Physician: YEISON Referring Physician: JOEY VILLARREAL Performed By: Farzad Sadler RDCS Reason For Study: Chest pain Interpreting Fellow: Eddy Caldwell. Exam Location: [facility]. Interpretation Summary - There is normal biventricular size and function with a left ventricularejection fraction of 75%. - No significant valvular disease noted on this study. - There is trivial pericardial effusion. - There are bilateral pleural effusions. Procedure Complete-[id number]. Satisfactory quality. There is normal sinus rhythm. Left Ventricle Left ventricle is of normal size. Wall thickness is normal. There is no ventricular septal defect. Left ventricular systolic function ishyperdynamic. The left ventricular ejection fraction is 75% by Pearson's biplane. There areno segmental wall motion abnormalities. Right Ventricle The right ventricle is of normal size. Right ventricular systolic functionis normal. Left Atrium The left atrium is normal. There is no evidence for a patent foramenovale. Right Atrium The right atrium is normal. Aortic Valve The aortic valve is structurally normal. There is no aortic stenosis.There is no aortic regurgitation. Mitral Valve The mitral valve is structurally normal. There is trace mitralregurgitation. Tricuspid Valve The tricuspid valve is structurally normal. There is trace tricuspid regurgitation. Pulmonic Valve The pulmonic valve appears to be structurally and functionally normal. Great Arteries The aortic root is of normal size. No abnormalities are identified.Ascending aorta is normal in size. Venous Inferior vena cava is normal in size. Inferior vena cava collapse greaterthan 50% with respiration. Pericardium/Pleural There is a trivial pericardial effusion. Bilateral pleural effusions arepresent. Hemodynamics The estimated right atrial pressure is 3mmHg. Pulmonary arteryhypertension could not be assessed due to inadequate tricuspid regurgitation jet. Leftventricular diastolic function is normal. Left ventricular filling pressure isnormal. Ejection Fraction 2D Measurements Volumes LV Biplane EF: 74.9 % IVSd: 0.89 cm LA VolumeIndex: LVIDd: 3.6 cm LVIDs: 2.8 cm 39.5 ml/m2 LVPWd: 0.78 cm EDV Biplane: 52.8ml LV mass(C)d: 84.0 grams EDV BiplaneIndex: 35.1 ESV Biplane: 13.2ml LV mass(C)dI: 55.9 grams/m2 ESV BiplaneIndex: 8.8 Ao root diam: 2.9 cm SV(LVOT): 54.3ml Ao root diam index: 1.9 LV Stroke Volume:54.3 ml LVOT diam: 1.8 cm SI(LVOT): 36.2ml/m2 TAPSE_phl: 2.2 cm Doppler MV E max yeimy: 77.3 cm/sec MV A max yeimy: 49.9 cm/sec MV E/A: 1.5 MV dec time: 0.23 sec Lat Peak E' Yeimy: 11.7 cm/sec E/ e' (lat): 6.6 Med Peak E' Yeimy: 10.3 cm/sec E/e' (med): 7.5 E/e' Average: 7.1 PI end-d yeimy: 96.4 cm/sec I WMSI = 1.00 % Normal = 100 SegmentsSize X - Cannot 2 - 4 - 1-2small Interpret 1 - Normal Hypokinetic 3 - Akinetic Dyskinetic 3-5moderate 5 - 6-14large Aneurysmal 15-16diffuse Francisco E Mattjuan DO ECHO ORDERABLES * XR Cervical Spine AP Flexion & Extension Only (01/15/2022 11:30 AM EDT) Anatomical Region Laterality Modality C-spine N/A Digital Radiogra phy Impressions 01/15/2022 11:40 AM EDT Slight dynamic instability at C4-C5 and C5-C6, which could be due to facet arthropathy. Thank you for letting us participate in the care of this patient. ??If you are a health care provider and have any questions regarding this report, please contact the number below. ??For patients who have questions please contact the health plant health care technician that requested your imaging first. ? Narrative 01/15/2022 11:40 AM EDT EXAMINATION: XR CERVICAL SPINE AP FLEXION AND EXTENSION ONLY CLINICAL HISTORY: 61F s/p suicide attempt, CT Cspine negative but with persistent bony tenderness over Cspine request for flexion-extension XR cervical spine TECHNIQUE: Lateral flexion and extension views of the cervical spine. AP view of the cervical spine. COMPARISON: CT 01/07/2022 FINDINGS: There is a nasoenteric tube. No prevertebral soft tissue swelling. Intact vertebral body heights. 2 mm of retrolisthesis of C4 on C5 with extension reduces to neutral with flexion. 2 mm of retrolisthesis of C5 on C6 with extension reduces to neutral with flexion. 2 mm of retrolisthesis of C6 on C7 is unchanged with flexion and extension. Mild disc height loss at C4-C5, C5-C6. Moderate disc height loss at C6-C7. There is multilevel bilateral facet degeneration. Procedure Note Cuco Khan MD - 01/15/2022 EXAMINATION: XR CERVICAL SPINE AP FLEXION AND EXTENSION ONLY CLINICAL HISTORY: 61F s/p suicide attempt, CT Cspine negative but with persistent bony tenderness over Cspine request for flexion-extension XR cervical spine TECHNIQUE: Lateral flexion and extension views of the cervical spine. AP view ofthe cervical spine. COMPARISON: CT 01/07/2022 FINDINGS: There is a nasoenteric tube. No prevertebral soft tissue swelling.Intact vertebral body heights. 2 mm of retrolisthesis of C4 on C5 with extension reduces to neutralwith flexion. 2 mm of retrolisthesis of C5 on C6 with extension reduces to neutralwith flexion. 2 mm of retrolisthesis of C6 on C7 is unchanged with flexion andextension. Mild disc height loss at C4-C5, C5-C6. Moderate disc height loss at C6-C7.There is multilevel bilateral facet degeneration. IMPRESSION Slight dynamic instability at C4-C5 and C5-C6, which could be due tofacet arthropathy. Thank you for letting us participate in the care of this patient. If youare a health care provider and have any questions regarding this report,please contact the number below. For patients who have questions please contactthe health plant health care technician that requested your imaging first. Francisco Lynne DO IMG DX ORDERABLES * (ABNORMAL) Differential, Automated (01/15/2022 5:30 AM EDT) Neutrophil % 66.8 % [facility] Neutrophil Absolute 6.27(H) 1.70 - 6.10 x10(3)/mc L [facility] Lymph % 12.9 % [facility] Lymphocytes Abs 1.2 0.9 - 3.2 x10(3)/ L [facility] Monocyte % 8.5 % [facility] Monocyte Abs 0.8 0.3 - 0.9 x10(3)/ L [facility] Eos % 0.9 % [facility] Eosinophils Abs 0.1 0.0 - 0.4 x10(3)/[facility] Basophil % 1.1 % [facility] Baso Absolute 0.1 0.0 - 0.1 x10(3)/ L [facility] Immature Gran % 9.80 % [facility] Comment: Immature granulocytes(IG's)percentage and absolute count will include metamyelocytes, myelocytes, and promyelocytes. Blood smears from CBCs yielding IG's will be scanned manually for concordance. If this scan disagrees with the automated IG or if promyelocytes are noted, a manual differential will be performed. Immature Gran Absolute 0.92(H) 0.00 - 0.04 x10(3)/mc L [facility] Blood 01/15/2022 5:30 AM EDT 01/15/2022 5:35 AM EDT Narrative Resulting Agency Comment Spec In Lab Tamela Polk MD HEMATOLOGY ORDERABLE S [facility] [place] [address] * (ABNORMAL) Hemogram (01/15/2022 5:30 AM EDT) White Blood Cell 9.4 4.0 - 9.5 x10(3)/[facility] Red Blood Cell 3.44(L) 4.00 - 5.21 x10(6)/[facility] Hemoglobin 11.4(L) 11.7 - 15.5 g/dL [facility] Hematocrit 32.8(L) 35.7 - 45.8 % [facility] Mean Cell Volume 95.3(H) 82.6 - 94.4 fL [facility] Mean Cell Hemoglobin 33.1(H) 27.1 - 32.0 pg [facility] Mean Cell Hemoglobin Concentration 34.8 31.7 - 35.0 g/dL [facility] Platelet 376(H) 145 - 357 x10(3)/[facility] RDW Standard Deviation 41.6 37.0 - 46.0 [facility] RDW coefficient of variation 11.9 11.5 - 14.1 % [facility] Mean Platelet Volume 8.7 7.6 - 12.9 [facility] NRBC% auto 0.0 % [facility] NRBC Absolute 0.000 0.000 - 0.000 x10(3)/[facility] Blood 01/15/2022 5:30 AM EDT 01/15/2022 5:35 AM EDT Narrative Resulting Agency Comment Spec In Lab Tamela Polk MD HEMATOLOGY ORDERABLE S [facility] [place] [address] * Phosphorus (01/15/2022 5:30 AM EDT) Pathologist [facility] Phosphorus 3.3 2.5 - 4.5 mg/dL [facility] Blood 01/15/2022 5:30 AM EDT 01/15/2022 5:35 AM EDT Narrative Resulting Agency Comment Spec In Lab Francisco E Gale DO CHEMISTRY ORDERABLES [facility] [place] [address] * Magnesium (01/15/2022 5:30 AM EDT) Magnesium 0.79 0.69 - 1.07 mmol/L [facility] Blood 01/15/2022 5:30 AM EDT 01/15/2022 5:35 AM EDT Narrative Resulting Agency Comment Spec In Lab Francisco Lynne DO CHEMISTRY ORDERABLES Performing Organization Address [facility] Co de Phone Number [facility] [place] [address] * (ABNORMAL) Basic Metabolic Panel (non-fasting) (01/15/2022 5:30 AM EDT) Glucose 100 65 - 199 mg/dL [facility] Comment:Diabetes: >=200 mg/d L plus symptoms Blood Urea Nitrogen 15 8 - 18 mg/dL [facility] Creatinine 0.36(L) 0.70 - 1.20 mg/dL [facility] Sodium 139 135 - 145 mmol/L [facility] Potassium 4.0 3.5 - 5.0 mmol/L [facility] Comment: Please note: ??Patients with WBC >100,000 may have falsely elevated Potassium levels. ??For accurate Potassium quantification in these patients send serum separator tube (gold top) for subsequent determinations. ??Contact the Clinical Chemistry Laboratory if there are any questions. Chloride 103 98 - 107 mmol/L [facility] Carbon Dioxide 24 22 - 31 mmol/L [facility] Anion Gap 12 5 - 15 mmol/L [facility] Calcium 9.1 8.5 - 10.5 mg/dL [facility] Est Glomerular Filtration Rate 116 >=60 mL/min/1. 73 m?? [facility] Comment: This patient? s estimated glomerular filtration rate (eGFR) is between 116 mL/min/1.73 m2 (patients with less muscle mass) and 134 mL/min/1.73 m2 (patients with more muscle mass) [...] and symptoms in addition to eGFR. Blood 01/15/2022 5:30 AM EDT 01/15/2022 5:35 AM EDT Narrative Resulting Agency Comment Spec In Lab Francisco Lynne DO CHEMISTRY ORDERABLES Performing Organization Address City/[facility]/ZIP Co de Phone Number [facility] [place] [address] * Phosphorus (01/14/2022 3:40 AM EDT) Phosphorus 3.8 2.5 - 4.5 mg/dL [facility] Blood Venous Draw / Unknown 01/14/2022 3:40 AM EDT 01/14/2022 3:47 AM EDT Narrative Resulting Agency Comment Spec In Lab Tamela Polk MD CHEMISTRY ORDERABLES [facility] [place] [address] * Scan, Peripheral Blood (01/14/2022 3:40 AM EDT) Plat estimate Normal [facility] RBC Morphology Abnormal [facility] Macrocyte 1-5 /HPF [facility] Ovalocytes 1-5 /HPF [facility] Deer Cells 1-5 /HPF [facility] Blood 01/14/2022 3:40 AM EDT 01/14/2022 3:44 AM EDT Narrative Resulting Agency Comment Spec In Lab Tamela Polk MD HEMATOLOGY ORDERABLE S [facility] [place] [address] * (ABNORMAL) Differential, Automated (01/14/2022 3:40 AM EDT) Neutrophil % 65.4 % [facility] Neutrophil Absolute 5.89 1.70 - 6.10 x10(3)/[facility] Lymph % 10.1 % [facility] Lymphocytes Abs 0.9 0.9 - 3.2 x10(3)/[facility] Monocyte % 8.5 % [facility] Monocyte Abs 0.8 0.3 - 0.9 x10(3)/[facility] Eos % 1.8 % [facility] Eosinophils Abs 0.2 0.0 - 0.4 x10(3)/[facility] Basophil % 0.4 % [facility] Baso Absolute 0.0 0.0 - 0.1 x10(3)/[facility] Immature Gran % 13.80 % [facility] Comment: Immature granulocytes(IG's)percentage and absolute count will include metamyelocytes, myelocytes, and promyelocytes. Blood smears from CBCs yielding IG's will be scanned manually for concordance. If this scan disagrees with the automated IG or if promyelocytes are noted, a manual differential will be performed. Immature Gran Absolute 1.24(H) 0.00 - 0.04 x10(3)/ L [facility] Blood 01/14/2022 3:40 AM EDT 01/14/2022 3:44 AM EDT Narrative Resulting Agency Comment Spec In Lab Tamela Polk MD HEMATOLOGY ORDERABLE S [facility] [place] [address] * (ABNORMAL) Hemogram (01/14/2022 3:40 AM EDT) White Blood Cell 9.0 4.0 - 9.5 x10(3)/mc L [facility] Red Blood Cell 3.30(L) 4.00 - 5.21 x10(6)/mc L [facility] Hemoglobin 11.0(L) 11.7 - 15.5 g/dL [facility] Hematocrit 31.7(L) 35.7 - 45.8 % [facility] Mean Cell Volume 96.1(H) 82.6 - 94.4 fL [facility] Mean Cell Hemoglobin 33.3(H) 27.1 - 32.0 pg [facility] Mean Cell Hemoglobin Concentration 34.7 31.7 - 35.0 g/dL [facility] Platelet 291 145 - 357 x10(3)/mc L [facility] RDW Standard Deviation 42.0 37.0 - 46.0 fL [facility] RDW coefficient of variation 11.9 11.5 - 14.1 % [facility] Mean Platelet Volume 8.9 7.6 - 12.9 fL [facility] NRBC% auto 0.0 % [facility] NRBC Absolute 0.000 0.000 - 0.000 x10(3)/mc L [facility] Blood 01/14/2022 3:40 AM EDT 01/14/2022 3:44 AM EDT Narrative Resulting Agency Comment Spec In Lab Tamela Polk MD HEMATOLOGY ORDERABLE S [facility] [place] [address] * Magnesium (01/14/2022 3:40 AM EDT) Magnesium 0.76 0.69 - 1.07 mmol/L [facility] Blood 01/14/2022 3:40 AM EDT 01/14/2022 3:44 AM EDT Narrative Resulting Agency Comment Spec In Lab Francisco Juan Guera HAN CHEMISTRY ORDERABLES [facility] [place] [address] * (ABNORMAL) Basic Metabolic Panel (non-fasting) (01/14/2022 3:40 AM EDT) Glucose 151 65 - 199 mg/dL [facility] Comment:Diabetes: >=200 mg/d L plus symptoms Blood Urea Nitrogen 13 8 - 18 mg/dL [facility] Creatinine 0.35(L) 0.70 - 1.20 mg/dL [facility] Sodium 134(L) 135 - 145 mmol/L [facility] Potassium 4.1 3.5 - 5.0 mmol/L [facility] Comment: Please note: ??Patients with WBC >100,000 may have falsely elevated Potassium levels. ??For accurate Potassium quantification in these patients send serum separator tube (gold top) for subsequent determinations. ??Contact the Clinical Chemistry Laboratory if there are any questions. Chloride 101 98 - 107 mmol/L [facility] Carbon Dioxide 24 22 - 31 mmol/L [facility] Anion Gap 9 5 - 15 mmol/L [facility] Calcium 9.0 8.5 - 10.5 mg/dL [facility] Est Glomerular Filtration Rate 117 >=60 mL/min/1. 73 m?? [facility] Comment: This patient? s estimated glomerular filtration rate (eGFR) is between 117 mL/min/1.73 m2 (patients with less muscle mass) and 135 mL/min/1.73 m2 (patients with more muscle mass) [...] and symptoms in addition to eGFR. Blood 01/14/2022 3:40 AM EDT 01/14/2022 3:44 AM EDT Narrative Resulting Agency Comment Spec In Lab Francisco Lynne DO CHEMISTRY ORDERABLES Performing Organization Address City/[facility]/ZIP Co de Phone Number [facility] [place] [address] * (ABNORMAL) Phosphorus (01/13/2022 5:46 AM EDT) [facility] Phosphorus 2.3(L) 2.5 - 4.5 mg/dL [facility] Blood Venous Draw / Unknown 01/13/2022 5:46 AM EDT 01/13/2022 5:56 AM EDT Narrative Resulting Agency Comment Spec In Lab Francis Linton MD CHEMISTRY ORDERABLES Performing Organization Address [facility] Co de Phone Number [facility] [place] [address] * Scan, Peripheral Blood (01/13/2022 5:46 AM EDT) Pathologist [facility] Plat estimate Normal [facility] RBC Morphology Normal [facility] Blood 01/13/2022 5:46 AM EDT 01/13/2022 5:50 AM EDT Narrative Resulting Agency Comment Spec In Lab Tamela Polk MD HEMATOLOGY ORDERABLE S Performing Organization Address [facility] Co de Phone Number [facility] [place] [address] * (ABNORMAL) Differential, Automated (01/13/2022 5:46 AM EDT) [facility] Neutrophil % 68.6 % [facility] Neutrophil Absolute 5.27 1.70 - 6.10 x10(3)/mc L [facility] Lymph % 9.2 % [facility] Lymphocytes Abs 0.7(L) 0.9 - 3.2 x10(3)/ L [facility] Monocyte % 8.5 % [facility] Monocyte Abs 0.6 0.3 - 0.9 x10(3)/ L [facility] Eos % 2.7 % [facility] Eosinophils Abs 0.2 0.0 - 0.4 x10(3)/ L [facility] Basophil % 1.0 % [facility] Baso Absolute 0.1 0.0 - 0.1 x10(3)/[facility] Immature Gran % 10.00 % [facility] Comment: Immature granulocytes(IG's)percentage and absolute count will include metamyelocytes, myelocytes, and promyelocytes. Blood smears from CBCs yielding IG's will be scanned manually for concordance. If this scan disagrees with the automated IG or if promyelocytes are noted, a manual differential will be performed. Immature Gran Absolute 0.77(H) 0.00 - 0.04 x10(3)/[facility] Blood 01/13/2022 5:46 AM EDT 01/13/2022 5:50 AM EDT Narrative Resulting Agency Comment Spec In Lab Tamela Polk MD HEMATOLOGY ORDERABLE S [facility] [place] [address] * (ABNORMAL) Hemogram (01/13/2022 5:46 AM EDT) White Blood Cell 7.7 4.0 - 9.5 x10(3)/ L [facility] Red Blood Cell 3.14(L) 4.00 - 5.21 x10(6)/[facility] Hemoglobin 10.4(L) 11.7 - 15.5 g/dL [facility] Hematocrit 29.8(L) 35.7 - 45.8 % [facility] Mean Cell Volume 94.9(H) 82.6 - 94.4 fL [facility] Mean Cell Hemoglobin 33.1(H) 27.1 - 32.0 pg [facility] Mean Cell Hemoglobin Concentration 34.9 31.7 - 35.0 g/dL [facility] Platelet 261 145 - 357 x10(3)/mc L [facility] RDW Standard Deviation 41.9 37.0 - 46.0 fL [facility] RDW coefficient of variation 12.0 11.5 - 14.1 % [facility] Mean Platelet Volume 9.1 7.6 - 12.9 fL [facility] NRBC% auto 0.0 % [facility] NRBC Absolute 0.000 0.000 - 0.000 x10(3)/mc L [facility] Blood 01/13/2022 5:46 AM EDT 01/13/2022 5:50 AM EDT Narrative Resulting Agency Comment Spec In Lab Tamela Polk MD HEMATOLOGY ORDERABLE S Performing Organization Address City/[facility]/ZIP Co de Phone Number [facility] [place] [address] * Magnesium (01/13/2022 5:46 AM EDT) Magnesium 0.76 0.69 - 1.07 mmol/L [facility] Blood 01/13/2022 5:46 AM EDT 01/13/2022 5:50 AM EDT Narrative Resulting Agency Comment Spec In Lab Francisco Lynne DO CHEMISTRY ORDERABLES Performing Organization Address City/[facility]/ZIP Co de Phone Number [facility] [place] [address] * (ABNORMAL) Basic Metabolic Panel (non-fasting) (01/13/2022 5:46 AM EDT) Glucose 140 65 - 199 mg/dL [facility] Comment:Diabetes: >=200 mg/d L plus symptoms Blood Urea Nitrogen 15 8 - 18 mg/dL [facility] Creatinine 0.39(L) 0.70 - 1.20 mg/dL [facility] Sodium 136 135 - 145 mmol/L [facility] Potassium 4.1 3.5 - 5.0 mmol/L [facility] Comment: Please note: ??Patients with WBC >100,000 may have falsely elevated Potassium levels. ??For accurate Potassium quantification in these patients send serum separator tube (gold top) for subsequent determinations. ??Contact the Clinical Chemistry Laboratory if there are any questions. Chloride 104 98 - 107 mmol/L [facility] Carbon Dioxide 24 22 - 31 mmol/L [facility] Anion Gap 8 5 - 15 mmol/L [facility] Calcium 8.9 8.5 - 10.5 mg/dL [facility] Est Glomerular Filtration Rate 113 >=60 mL/min/1. 73 m?? [facility] Comment: This patient? s estimated glomerular filtration rate (eGFR) is between 113 mL/min/1.73 m2 (patients with less muscle mass) and 130 mL/min/1.73 m2 (patients with more muscle mass) [...] and symptoms in addition to eGFR. Blood 01/13/2022 5:46 AM EDT 01/13/2022 5:50 AM EDT Narrative Resulting Agency Comment Spec In Lab Francisco Lynne DO CHEMISTRY [place] [address] * XR Abdomen 1 view (Generic) (01/12/2022 11:54 PM EDT) Anatomical Region Laterality Modality Abdomen N/A Digital Radiogra phy Impressions 01/13/2022 12:06 AM EDT 1. ??Dobbhoff tube terminates within the stomach. 2. ??No other interval change. Thank you for letting us participate in the care of this patient. ??If you are a health care provider and have any questions regarding this report, please contact the number below. ??For patients who have questions please contact the health plant health care technician that requested your imaging first. ? Narrative 01/13/2022 12:06 AM EDT EXAMINATION: XR ABDOMEN 1 VIEW (GENERIC) CLINICAL HISTORY: DHT placement TECHNIQUE: AP abdomen COMPARISON: Abdomen radiograph, January 11, 2022 FINDINGS: A weighted feeding tube with wire terminates in the expected region of the body of the stomach. Air within a few loops of bowel is visualized in the upper abdomen. Unchanged multifocal perihilar and lower lung opacities as before. No interval osseous changes. Procedure Note Lorin Ruelas MD - 01/13/2022 EXAMINATION: XR ABDOMEN 1 VIEW (GENERIC) CLINICAL HISTORY: DHT placement TECHNIQUE: AP abdomen COMPARISON: Abdomen radiograph, January 11, 2022 FINDINGS: A weighted feeding tube with wire terminates in the expected region of thebody of the stomach. Air within a few loops of bowel is visualized in the upper abdomen.Unchanged multifocal perihilar and lower lung opacities as before. No intervalosseous changes. IMPRESSION 1. Dobbhoff tube terminates within the stomach. 2. No other interval change. Thank you for letting us participate in the care of this patient. If youare a health care provider and have any questions regarding this report,please contact the number below. For patients who have questions please contactthe health plant health care technician that requested your imaging first. Francisco E Gale DO IMG DX ORDERABLES * EKG 12 Lead (01/12/2022 11:53 PM EDT) Ventricular rate 81 BPM MUSE SYSTEM Atrial Rate 81 BPM MUSE SYSTEM P-R Interval 148 ms MUSE SYSTEM QRS Duration 88 ms MUSE SYSTEM Q-T Interval 366 ms MUSE SYSTEM QTC Calculated (Bezet) 425 ms MUSE SYSTEM Calculated P [place] 67 degrees MUSE SYSTEM Calculated R [place] 33 degrees MUSE SYSTEM Calculated T [place] 70 degrees MUSE SYSTEM INTERPRETATION Normal sinus rhythm Normal ECG When compared with ECG of 12-JAN-2022 13:36, No significant change was found I personally reviewed the tracing and edited the fellows interpretation Confirmed by fellow William Gomez ([id number]) on 01/13/2022 3:31:25 PM Confirmed by MD Maxi, Edwar Loyd ([id number]) on 01/14/2022 10:50:32 AM MUSE SYSTEM 01/12/2022 11:5 3 PM EDT 01/14/2022 10:50 AM EDT Francisco E Gale DO ECG ORDERABLES MUSE SYSTEM * Potassium (01/12/2022 5:55 PM EDT) Potassium 3.6 3.5 - 5.0 mmol/L [facility] Comment: result rechecked-kd Please note: ??Patients with WBC >100,000 may have falsely elevated Potassium levels. ??For accurate Potassium quantification in these patients send serum separator tube (gold top) for subsequent determinations. ??Contact the Clinical Chemistry Laboratory if there are any questions. Blood 01/12/2022 5:55 PM EDT 01/12/2022 6:24 PM EDT Narrative Resulting Agency Comment Spec In Lab Francisco Juan Mattjuan CHEMISTRY ORDERABLES [facility] [place] [address] * XR Chest One View (01/12/2022 2:35 PM EDT) Anatomical Region Laterality Modality Chest N/A Digital Radiogra phy Impressions 01/12/2022 3:00 PM EDT 1. ??No interval change. 2. ??Stable bibasilar and perihilar airspace opacities. Thank you for letting us participate in the care of this patient. ??If you are a health care provider and have any questions regarding this report, please contact the number below. ??For patients who have questions please contact the health plant health care technician that requested your imaging first. ? Electronically signed by: Alon Peterson DO, [facility] ([phone]), at 01/12/2022 3:00 PM Narrative 01/12/2022 3:00 PM EDT EXAMINATION: XR CHEST ONE VIEW CLINICAL HISTORY: 61-year-old female with acute chest pain the setting of known aspiration pneumonia. TECHNIQUE: A single AP portable semierect upright radiograph of the chest was obtained. COMPARISON: Comparison is made to multiple prior chest radiograph examinations, the most recent which is dated January 11, 2022.. FINDINGS: There is an enteric catheter present with tip outside the field of view, but below the left hemidiaphragm. Multiple monitoring devices overlie the patient. There are persistent and relatively unchanged confluent airspace opacities with a perihilar and basilar predominance. ??There is obscuration of the left hemidiaphragm and left cardiac and mediastinal borders. ??There is partial obscuration of the right hemidiaphragm and cardiac mediastinal borders. ??There are probable small bilateral pleural effusions. ??There is no pneumothorax. The trachea is midline. ??Hilar structures are obscured. The cardia mediastinal contours are obscured. Visualized structures within the inferior neck and superior abdomen are otherwise unremarkable. Osseous structures are unchanged. Procedure Note Alon Peterson DO - 01/12/2022 EXAMINATION: XR CHEST ONE VIEW CLINICAL HISTORY: 61-year-old female with acute chest pain the setting ofknown aspiration pneumonia. TECHNIQUE: A single AP portable semierect upright radiograph of the chestwas obtained. COMPARISON: Comparison is made to multiple prior chest radiographexaminations, the most recent which is dated January 11, 2022.. FINDINGS: There is an enteric catheter present with tip outside the field of view,but below the left hemidiaphragm. Multiple monitoring devices overlie the patient. There are persistent and relatively unchanged confluent airspace opacitieswith a perihilar and basilar predominance. There is obscuration of the left hemidiaphragm and left cardiac and mediastinal borders. There ispartial obscuration of the right hemidiaphragm and cardiac mediastinal borders.There are probable small bilateral pleural effusions. There is nopneumothorax. The trachea is midline. Hilar structures are obscured. The cardia mediastinal contours are obscured. Visualized structures within the inferior neck and superior abdomen are otherwise unremarkable. Osseous structures are unchanged. IMPRESSION 1. No interval change. 2. Stable bibasilar and perihilar airspace opacities. Thank you for letting us participate in the care of this patient. If youare a health care provider and have any questions regarding this report,please contact the number below. For patients who have questions please contactthe health plant health care technician that requested your imaging first. Electronically signed by: Alon Peterson DO, [facility]([phone]), at 01/12/2022 3:00 PM Francisco Lynne DO IMG DX ORDERABLES * Troponin (01/12/2022 1:50 PM EDT) [facility] Troponin-T <0.01 0.00 - 0.00 ng/mL [facility] Comment: The 99th percentile for Troponin T is less than 0.01 ng/mL, any detectable cTnT concentration using this assay should be considered elevated. According to the third universal definition of myocardial infarction the following criteria with a clinical presentation consistent with acute myocardial ischemia meets the diagnosis for a myocardial infarction (IN). Detection of a rise and/or fall of cTnT, with at least one value greater than the 99th percentile (> or = 0.01) and with at least one of the following ?? Symptoms of ischemia ?? New or presumed new significant [id number] wave (ST-T) changes or new left bundle branch block (LBBB) ?? Development of pathologic Q waves in the ECG ?? Imaging evidence of new loss of viable myocardium or new regional wall motion abnormality ?? Identification of an intracoronary thrombus by angiography or autopsy Samples for cTnT testing should be obtained serially upon first assessment and again 3 to 6 hours later. If the clinical suspicion is high and previous samples have been negative an additional sample may be indicated. Reference: Third Avinger Definition of Myocardial Infarction. Journal of the [employer] 2012;60:1581-98 Blood 01/12/2022 1:50 PM EDT 01/12/2022 2:04 PM EDT Narrative Resulting Agency Comment Spec In Lab Francisco Juan Guera DO CHEMISTRY ORDERABLES [facility] [place] [address] * EKG 12 Lead (01/12/2022 1:36 PM EDT) [facility] Ventricular rate 75 BPM MUSE SYSTEM Atrial Rate 75 BPM MUSE SYSTEM P-R Interval 154 ms MUSE SYSTEM QRS Duration 80 ms MUSE SYSTEM Q-T Interval 376 ms MUSE SYSTEM QTC Calculated (Bezet) 419 ms MUSE SYSTEM Calculated P [place] 69 degrees MUSE SYSTEM Calculated R [place] 43 degrees MUSE SYSTEM Calculated T [place] 72 degrees MUSE SYSTEM INTERPRETATION Normal sinus rhythm Normal ECG When compared with ECG of 07-JAN-2022 00:05, No significant change was found Confirmed by Kourtney Dove ([id number]) on 01/12/2022 5:09:24 PM MUSE SYSTEM 01/12/2022 1:36 PM EDT 01/12/2022 5:09 PM EDT Francisco E Gale DO ECG ORDERABLES Performing Organization Address City/[facility]/ZIP Co de Phone Number MUSE SYSTEM * (ABNORMAL) Potassium (01/12/2022 11:04 AM EDT) Pathologist [facility] Potassium 5.1(H) 3.5 - 5.0 mmol/L [facility] Comment: result rechecked-mm Please note: ??Patients with WBC >100,000 may have falsely elevated Potassium levels. ??For accurate Potassium quantification in these patients send serum separator tube (gold top) for subsequent determinations. ??Contact the Clinical Chemistry Laboratory if there are any questions. Blood 01/12/2022 11:0 4 AM EDT 01/12/2022 11:16 AM EDT Narrative Resulting Agency Comment Spec In Lab Francisco Lynne DO CHEMISTRY ORDERABLES Performing Organization Address City/[facility] Co de Phone Number [facility] [place] [address] * (ABNORMAL) Differential, Automated (01/12/2022 1:00 AM EDT) Pathologist [facility] Neutrophil % 81.4 % [facility] Neutrophil Absolute 6.92(H) 1.70 - 6.10 x10(3)/mc L [facility] Lymph % 7.8 % [facility] Lymphocytes Abs 0.7(L) 0.9 - 3.2 x10(3)/mc L [facility] Monocyte % 6.0 % [facility] Monocyte Abs 0.5 0.3 - 0.9 x10(3)/mc L [facility] Eos % 2.1 % [facility] Eosinophils Abs 0.2 0.0 - 0.4 x10(3)/mc L [facility] Basophil % 0.5 % [facility] Baso Absolute 0.0 0.0 - 0.1 x10(3)/ L [facility] Immature Gran % 2.20 % [facility] Comment: Immature granulocytes(IG's)percentage and absolute count will include metamyelocytes, myelocytes, and promyelocytes. Blood smears from CBCs yielding IG's will be scanned manually for concordance. If this scan disagrees with the automated IG or if promyelocytes are noted, a manual differential will be performed. Immature Gran Absolute 0.19(H) 0.00 - 0.04 x10(3)/[facility] LABORATORY Blood 01/12/2022 1:00 AM EDT 01/12/2022 1:06 AM EDT Narrative Resulting Agency Comment Spec In Lab Tamela Polk MD HEMATOLOGY ORDERABLE S Performing Organization Address City/State/[facility] Co de Phone Number [facility] [place] [address] * (ABNORMAL) Hemogram (01/12/2022 1:00 AM EDT) White Blood Cell 8.5 4.0 - 9.5 x10(3)/[facility] LABORATORY Red Blood Cell 2.82(L) 4.00 - 5.21 x10(6)/[facility] LABORATORY Hemoglobin 9.4(L) 11.7 - 15.5 g/dL [facility] Hematocrit 27.1(L) 35.7 - 45.8 % [facility] Mean Cell Volume 96.1(H) 82.6 - 94.4 fL [facility] Mean Cell Hemoglobin 33.3(H) 27.1 - 32.0 pg [facility] Mean Cell Hemoglobin Concentration 34.7 31.7 - 35.0 g/dL [facility] Platelet 192 145 - 357 x10(3)/[facility] LABORATORY RDW Standard Deviation 42.1 37.0 - 46.0 fL [facility] RDW coefficient of variation 11.9 11.5 - 14.1 % [facility] Mean Platelet Volume 9.4 7.6 - 12.9 fL [facility] NRBC% auto 0.0 % [facility]ORY NRBC Absolute 0.000 0.000 - 0.000 x10(3)/mc L [facility] Blood 01/12/2022 1:00 AM EDT 01/12/2022 1:06 AM EDT Narrative Resulting Agency Comment Spec In Lab Tamela Polk MD HEMATOLOGY ORDERABLE S Performing Organization Address City/[facility]/ZIP Co de Phone Number [facility] [place] [address] * Magnesium (01/12/2022 1:00 AM EDT) Pathologist [facility] Magnesium 0.79 0.69 - 1.07 mmol/L [facility] Blood 01/12/2022 1:00 AM EDT 01/12/2022 1:06 AM EDT Narrative Resulting Agency Comment Spec In Lab Francisco Lynne DO CHEMISTRY ORDERABLES Performing Organization Address [facility]/ZIP Co de Phone Number [facility] [place] [address] * (ABNORMAL) Basic Metabolic Panel (non-fasting) (01/12/2022 1:00 AM EDT) Glucose 87 65 - 199 mg/dL [facility] Comment:Diabetes: >=200 mg/d L plus symptoms Blood Urea Nitrogen 17 8 - 18 mg/dL [facility] Creatinine 0.48(L) 0.70 - 1.20 mg/dL [facility] Sodium 140 135 - 145 mmol/L [facility] Potassium 2.9(Criti desire) 3.5 - 5.0 mmol/L [facility] Comment: called by bm/read back by mariella mcdermott 01/12/22 [id number] Please note: ??Patients with WBC >100,000 may have falsely elevated Potassium levels. ??For accurate Potassium quantification in these patients send serum separator tube (gold top) for subsequent determinations. ??Contact the Clinical Chemistry Laboratory if there are any questions. Chloride 106 98 - 107 mmol/L [facility] Carbon Dioxide 21(L) 22 - 31 mmol/L [facility] Anion Gap 13 5 - 15 mmol/L [facility] Calcium 8.6 8.5 - 10.5 mg/dL [facility] Est Glomerular Filtration Rate 105 >=60 mL/min/1. 73 m?? [facility] Comment: This patient? s estimated glomerular filtration rate (eGFR) is between 105 mL/min/1.73 m2 (patients with less muscle mass) and 122 mL/min/1.73 m2 (patients with more muscle mass) [...] and symptoms in addition to eGFR. Blood 01/12/2022 1:00 AM EDT 01/12/2022 1:06 AM EDT Narrative Resulting Agency Comment Spec In Lab Francisco Lynne DO CHEMISTRY ORDERABLES [facility] [place] [address] * XR Chest One View (01/11/2022 3:41 PM EDT) Anatomical Region Laterality Modality Chest N/A Digital Radiogra phy Impressions 01/11/2022 3:46 PM EDT 1. ??Worsening bilateral mid to lower lung zones opacities which could represent any combination of aspiration or infection and bilateral layering pleural effusions. 2. ??There is likely a component of pulmonary edema as well. Thank you for letting us participate in the care of this patient. ??If you are a health care provider and have any questions regarding this report, please contact the number below. ??For patients who have questions please contact the health plant health care technician that requested your imaging first. ? Electronically signed by: Vianey Morrison MD, [facility] ([phone]), at 01/11/2022 3:46 PM Narrative 01/11/2022 3:46 PM EDT EXAMINATION: XR CHEST ONE VIEW CLINICAL HISTORY: serial follow-up of known aspiration pneumonitis in the setting of new tachypnea serial follow-up of known aspiration pneumonitis in the setting of new tahchypnea (as entered by ordering provider in the order requisition) TECHNIQUE: Portable AP view the chest COMPARISON: Chest radiograph 01/09/2022 FINDINGS: Worsening opacities of the bilateral mid to lower lung zones with perihilar fullness and indistinctness of vasculature. The new opacities largely obscure the cardiomediastinal silhouette. There is an enteric tube which courses below the inferior margin of the study. Procedure Note Vianey Morrison MD - 01/11/2022 EXAMINATION: XR CHEST ONE VIEW CLINICAL HISTORY: serial follow-up of known aspiration pneumonitis inthe setting of new tachypnea serial follow-up of known aspiration pneumonitis in the setting of new tahchypnea (as entered by ordering provider in the order requisition) TECHNIQUE: Portable AP view the chest COMPARISON: Chest radiograph 01/09/2022 FINDINGS: Worsening opacities of the bilateral mid to lower lung zones withperihilar fullness and indistinctness of vasculature. The new opacities largelyobscure the cardiomediastinal silhouette. There is an enteric tube which courses below the inferior margin of thestudy. IMPRESSION 1. Worsening bilateral mid to lower lung zones opacities which couldrepresent any combination of aspiration or infection and bilateral layeringpleural effusions. 2. There is likely a component of pulmonary edema as well. Thank you for letting us participate in the care of this patient. If youare a health care provider and have any questions regarding this report,please contact the number below. For patients who have questions please contactthe health plant health care technician that requested your imaging first. Electronically signed by: Vianey Morrison MD, [facility]([phone]), at 01/11/2022 3:46 PM Francisco Lynne DO IMG DX ORDERABLES * XR Abdomen 1 view (Generic) (01/11/2022 2:16 PM EDT) Anatomical Region Laterality Modality Abdomen N/A Digital Radiogra phy Impressions 01/11/2022 2:43 PM EDT 1. ??Interval placement of weighted tip enteric catheter with distal tip projecting over the body the stomach. 2. ??Redemonstration of multifocal opacities in the bilateral lungs suggestive of aspiration pneumonitis. I have personally reviewed the image(s) and the resident's interpretation and agree with the findings, Anjali Hill MD at 01/11/2022 2:43 PM Thank you for letting us participate in the care of this patient. ??If you are a health care provider and have any questions regarding this report, please contact the number below. ??For patients who have questions please contact the health plant health care technician that requested your imaging first. ? Narrative 01/11/2022 2:43 PM EDT EXAMINATION: XR ABDOMEN 1 VIEW (GENERIC) CLINICAL HISTORY: KUB to confirm DHT placement TECHNIQUE: AP portable 85 degrees upright COMPARISON: Chest x-ray 01/09/2022 FINDINGS: Interval placement of weighted tip enteric catheter with distal tip projecting over the body of the stomach. Air-filled, nondilated loops of small and large bowel. Redemonstration of multifocal patchy opacities and consolidation predominantly in medial bilateral lower lobes with obscuration of the left hemidiaphragm and right heart border. Equivocal trace pleural effusions bilaterally. No acute osseous abnormality. Procedure Note Anjali Hill MD - 01/11/2022 EXAMINATION: XR ABDOMEN 1 VIEW (GENERIC) CLINICAL HISTORY: KUB to confirm DHT placement TECHNIQUE: AP portable 85 degrees upright COMPARISON: Chest x-ray 01/09/2022 FINDINGS: Interval placement of weighted tip enteric catheter with distal tipprojecting over the body of the stomach. Air-filled, nondilated loops of small andlarge bowel. Redemonstration of multifocal patchy opacities and consolidation predominantly in medial bilateral lower lobes with obscuration of theleft hemidiaphragm and right heart border. Equivocal trace pleural effusions bilaterally. No acute osseous abnormality. IMPRESSION 1. Interval placement of weighted tip enteric catheter with distal tip projecting over the body the stomach. 2. Redemonstration of multifocal opacities in the bilateral lungssuggestive of aspiration pneumonitis. I have personally reviewed the image(s) and the resident's interpretationand agree with the findings, Anjali Hill MD at 01/11/2022 2:43 PM Thank you for letting us participate in the care of this patient. If youare a health care provider and have any questions regarding this report,please contact the number below. For patients who have questions please contactthe health plant health care technician that requested your imaging first. Francisco Lynne DO IMG DX ORDERABLES * MRI Brain wo Contrast (01/11/2022 11:54 AM EDT) Anatomical Region Laterality Modality Head Magnetic Resonan ce Impressions 01/11/2022 12:05 PM EDT Stable MRI without acute findings. Thank you for letting us participate in the care of this patient. ??If you are a health care provider and have any questions regarding this report, please contact the number below. ??For patients who have questions please contact the health plant health care technician that requested your imaging first. ? Electronically signed by: Renetta Sims MD, [facility] ([phone]), at 01/11/2022 12:05 PM Narrative 01/11/2022 12:05 PM EDT EXAMINATION: MRI BRAIN WO CONTRAST CLINICAL HISTORY: AMS, found down, unclear amt of time. admission MRI was neg but not enough time to eval for hypoxic brain injury. remains altered so repeating MRI to eval for hypoxic brain injury AMS, found down, unclear amt of time. admission MRI was neg but not enough time to eval for hypoxic brain injury. remains altered so repeating MRI to eval for hypoxic brain injury TECHNIQUE: MRI of the brain performed without intravenous contrast administration. COMPARISON: MRI brain January 07, 2022 FINDINGS: A few nonspecific T2 hyperintense foci within the left frontal tanner radiata, bilateral periatrial white matter are stable. There is no restricted diffusion, midline shift, mass effect, hydrocephalus or extra-axial collection. Motion limited susceptibility weighted images. No large intracranial hemorrhage. Midline structures are normal. Stable cerebral volume loss. Patent foramen magnum. Left maxillary sinus mucus retention cyst is stable. Slightly increased right mastoid fluid. Procedure Note Renetta Sims MD - 01/11/2022 EXAMINATION: MRI BRAIN WO CONTRAST CLINICAL HISTORY: AMS, found down, unclear amt of time. admission MRI wasneg but not enough time to eval for hypoxic brain injury. remains altered so repeating MRI to eval for hypoxic brain injury AMS, found down, unclear amt of time. admission MRI was neg but not enoughtime to eval for hypoxic brain injury. remains altered so repeating MRI to evalfor hypoxic brain injury TECHNIQUE: MRI of the brain performed without intravenous contrast administration. COMPARISON: MRI brain January 07, 2022 FINDINGS: A few nonspecific T2 hyperintense foci within the left frontal coronaradiata, bilateral periatrial white matter are stable. There is no restricteddiffusion, midline shift, mass effect, hydrocephalus or extra-axial collection.Motion limited susceptibility weighted images. No large intracranialhemorrhage. Midline structures are normal. Stable cerebral volume loss. Patentforamen magnum. Left maxillary sinus mucus retention cyst is stable. Slightlyincreased right mastoid fluid. IMPRESSION Stable MRI without acute findings. Thank you for letting us participate in the care of this patient. If youare a health care provider and have any questions regarding this report,please contact the number below. For patients who have questions please contactthe health plant health care technician that requested your imaging first. Francisco Juan Lynne DO IMG MRI ORDERABLES * (ABNORMAL) Differential, Automated (01/11/2022 1:10 AM EDT) Neutrophil % 88.4 % [facility] Neutrophil Absolute 9.85(H) 1.70 - 6.10 x10(3)/mc L [facility] Lymph % 5.8 % [facility] Lymphocytes Abs 0.6(L) 0.9 - 3.2 x10(3)/mc L [facility] Monocyte % 3.0 % [facility] Monocyte Abs 0.3 0.3 - 0.9 x10(3)/mc L [facility] Eos % 1.0 % [facility] Eosinophils Abs 0.1 0.0 - 0.4 x10(3)/mc L [facility] Basophil % 0.5 % [facility] Baso Absolute 0.1 0.0 - 0.1 x10(3)/mc L [facility] Immature Gran % 1.30 % [facility] Comment: Immature granulocytes(IG's)percentage and absolute count will include metamyelocytes, myelocytes, and promyelocytes. Blood smears from CBCs yielding IG's will be scanned manually for concordance. If this scan disagrees with the automated IG or if promyelocytes are noted, a manual differential will be performed. Immature Gran Absolute 0.14(H) 0.00 - 0.04 x10(3)/[facility] LABORATORY Blood 01/11/2022 1:10 AM EDT 01/11/2022 1:22 AM EDT Narrative Resulting Agency Comment Spec In Lab Tamela Polk MD HEMATOLOGY ORDERABLE S [facility] [place] [address] * (ABNORMAL) Hemogram (01/11/2022 1:10 AM EDT) White Blood Cell 11.1(H) 4.0 - 9.5 x10(3)/[facility] LABORATORY Red Blood Cell 3.07(L) 4.00 - 5.21 x10(6)/[facility] LABORATORY Hemoglobin 10.3(L) 11.7 - 15.5 g/dL [facility] Hematocrit 29.9(L) 35.7 - 45.8 % [facility] Mean Cell Volume 97.4(H) 82.6 - 94.4 fL [facility] Mean Cell Hemoglobin 33.6(H) 27.1 - 32.0 pg [facility] Mean Cell Hemoglobin Concentration 34.4 31.7 - 35.0 g/dL [facility] Platelet 174 145 - 357 x10(3)/[facility] LABORATORY RDW Standard Deviation 43.8 37.0 - 46.0 fL [facility] RDW coefficient of variation 12.2 11.5 - 14.1 % [facility] Mean Platelet Volume 10.2 7.6 - 12.9 fL [facility] NRBC% auto 0.0 % [facility] NRBC Absolute 0.000 0.000 - 0.000 x10(3)/mc L [facility] Blood 01/11/2022 1:10 AM EDT 01/11/2022 1:22 AM EDT Narrative Resulting Agency Comment Spec In Lab Tamela Polk MD HEMATOLOGY ORDERABLE S Performing Organization Address [facility]/ZIP Co de Phone Number [facility] [place] [address] * (ABNORMAL) CK (01/11/2022 1:10 AM EDT) Creatine Kinase 536(H) 0 - 160 unit/L [facility] Blood 01/11/2022 1:10 AM EDT 01/11/2022 1:22 AM EDT Narrative Resulting Agency Comment Spec In Lab Francisco Lynne DO CHEMISTRY ORDERABLES Performing Organization Address [facility] Co de Phone Number [facility] [place] [address] * (ABNORMAL) Basic Metabolic Panel (non-fasting) (01/11/2022 1:10 AM EDT) Glucose 93 65 - 199 mg/dL [facility] Comment:Diabetes: >=200 mg/d L plus symptoms Blood Urea Nitrogen 15 8 - 18 mg/dL [facility] Creatinine 0.46(L) 0.70 - 1.20 mg/dL [facility] Sodium 137 135 - 145 mmol/L [facility] Potassium 3.8 3.5 - 5.0 mmol/L [facility] Comment: Please note: ??Patients with WBC >100,000 may have falsely elevated Potassium levels. ??For accurate Potassium quantification in these patients send serum separator tube (gold top) for subsequent determinations. ??Contact the Clinical Chemistry Laboratory if there are any questions. Chloride 106 98 - 107 mmol/L [facility] Carbon Dioxide 20(L) 22 - 31 mmol/L [facility] Anion Gap 11 5 - 15 mmol/L [facility] Calcium 8.9 8.5 - 10.5 mg/dL [facility] Est Glomerular Filtration Rate 107 >=60 mL/min/1. 73 m?? [facility] Comment: This patient? s estimated glomerular filtration rate (eGFR) is between 107 mL/min/1.73 m2 (patients with less muscle mass) and 124 mL/min/1.73 m2 (patients with more muscle mass) [...] and symptoms in addition to eGFR. Blood 01/11/2022 1:10 AM EDT 01/11/2022 1:22 AM EDT Narrative Resulting Agency Comment Spec In Lab Francisco Lynne DO CHEMISTRY ORDERABLES Performing Organization Address City/[facility] de Phone Number [facility] [place] [address] * Potassium (01/10/2022 2:05 PM EDT) Potassium 4.3 3.5 - 5.0 mmol/L [facility] Comment: Please note: ??Patients with WBC >100,000 may have falsely elevated Potassium levels. ??For accurate Potassium quantification in these patients send serum separator tube (gold top) for subsequent determinations. ??Contact the Clinical Chemistry Laboratory if there are any questions. Blood 01/10/2022 2:05 PM EDT 01/10/2022 2:08 PM EDT Narrative Resulting Agency Comment Spec In Lab Francisco Lynne DO CHEMISTRY ORDERABLES [facility] [place] [address] * (ABNORMAL) Differential, Automated (01/10/2022 3:22 AM EDT) Neutrophil % 88.9 % [facility] Neutrophil Absolute 7.76(H) 1.70 - 6.10 x10(3)/mc L [facility] Lymph % 6.8 % [facility] Lymphocytes Abs 0.6(L) 0.9 - 3.2 x10(3)/mc L [facility] Monocyte % 2.9 % [facility] Monocyte Abs 0.2(L) 0.3 - 0.9 x10(3)/mc L [facility] Eos % 0.3 % [facility] Eosinophils Abs 0.0 0.0 - 0.4 x10(3)/ L [facility] Basophil % 0.3 % [facility] Baso Absolute 0.0 0.0 - 0.1 x10(3)/ L [facility] Immature Gran % 0.80 % [facility] Comment: Immature granulocytes(IG's)percentage and absolute count will include metamyelocytes, myelocytes, and promyelocytes. Blood smears from CBCs yielding IG's will be scanned manually for concordance. If this scan disagrees with the automated IG or if promyelocytes are noted, a manual differential will be performed. Immature Gran Absolute 0.07(H) 0.00 - 0.04 x10(3)/mc L [facility] Blood 01/10/2022 3:22 AM EDT 01/10/2022 3:27 AM EDT Narrative Resulting Agency Comment Spec In Lab Tamela Polk MD HEMATOLOGY ORDERABLE S Performing Organization Address [facility]/ZIP Co de Phone Number [facility] [place] [address] * (ABNORMAL) Hemogram (01/10/2022 3:22 AM EDT) White Blood Cell 8.7 4.0 - 9.5 x10(3)/[facility] LABORATORY Red Blood Cell 2.97(L) 4.00 - 5.21 x10(6)/ L [facility] Hemoglobin 10.0(L) 11.7 - 15.5 g/dL [facility] Hematocrit 28.7(L) 35.7 - 45.8 % [facility] Mean Cell Volume 96.6(H) 82.6 - 94.4 fL [facility] Mean Cell Hemoglobin 33.7(H) 27.1 - 32.0 pg [facility] Mean Cell Hemoglobin Concentration 34.8 31.7 - 35.0 g/dL [facility] Platelet 116(L) 145 - 357 x10(3)/[facility] LABORATORY RDW Standard Deviation 43.0 37.0 - 46.0 [facility] LABORATORY RDW coefficient of variation 12.1 11.5 - 14.1 % [facility] Mean Platelet Volume 10.1 7.6 - 12.9 [facility] NRBC% auto 0.0 % [facility] NRBC Absolute 0.000 0.000 - 0.000 x10(3)/[facility] LABORAT[facility] Blood 01/10/2022 3:22 AM EDT 01/10/2022 3:27 AM EDT Narrative Resulting Agency Comment Spec In Lab Tamela Polk MD HEMATOLOGY ORDERABLE S [facility] [place] [address] * (ABNORMAL) CK (01/10/2022 3:22 AM EDT) Creatine Kinase 1,074(H) 0 - 160 unit/L [facility] Blood 01/10/2022 3:22 AM EDT 01/10/2022 3:27 AM EDT Narrative Resulting Agency Comment Spec In Lab Francisco Juan Lynne CHEMISTRY ORDERABLES [facility] [place] [address] * (ABNORMAL) Basic Metabolic Panel (non-fasting) (01/10/2022 3:22 AM EDT) Glucose 141 65 - 199 mg/dL [facility] Comment:Diabetes: >=200 mg/d L plus symptoms Blood Urea Nitrogen 13 8 - 18 mg/dL [facility] Creatinine 0.50(L) 0.70 - 1.20 mg/dL [facility] Sodium 139 135 - 145 mmol/L [facility] Potassium 3.7 3.5 - 5.0 mmol/L [facility] Comment: Please note: ??Patients with WBC >100,000 may have falsely elevated Potassium levels. ??For accurate Potassium quantification in these patients send serum separator tube (gold top) for subsequent determinations. ??Contact the Clinical Chemistry Laboratory if there are any questions. Chloride 106 98 - 107 mmol/L [facility] Carbon Dioxide 22 22 - 31 mmol/L [facility] Anion Gap 11 5 - 15 mmol/L [facility] Calcium 8.3(L) 8.5 - 10.5 mg/dL [facility] Est Glomerular Filtration Rate 104 >=60 mL/min/1. 73 m?? [facility] Comment: This patient? s estimated glomerular filtration rate (eGFR) is between 104 mL/min/1.73 m2 (patients with less muscle mass) and 120 mL/min/1.73 m2 (patients with more muscle mass) [...] and symptoms in addition to eGFR. Blood 01/10/2022 3:22 AM EDT 01/10/2022 3:27 AM EDT Narrative Resulting Agency Comment Spec In Lab Francisco Lynne CHEMISTRY ORDERABLES [facility] [place] [address] * XR Chest One View (01/09/2022 9:24 PM EDT) Anatomical Region Laterality Modality Chest N/A Digital Radiogra phy Impressions 01/09/2022 11:00 PM EDT Increased confluence of multifocal predominantly lower lobe bilateral pulmonary opacities, compatible with aspiration pneumonitis, with trace right and small left pleural effusions. I have personally reviewed the image(s) and the resident's interpretation and agree with the findings, Lorin Ruelas MD at 01/09/2022 11:00 PM Thank you for letting us participate in the care of this patient. ??If you are a health care provider and have any questions regarding this report, please contact the number below. ??For patients who have questions please contact the health plant health care technician that requested your imaging first. ? Narrative 01/09/2022 11:00 PM EDT EXAMINATION: XR CHEST ONE VIEW CLINICAL HISTORY: hx of suicide attempt, aspiration pneumonitis, RML collapse, extubated today, desaturating on hiflow TECHNIQUE: 1 view of the chest COMPARISON: Chest x-ray, 01/08/2022 FINDINGS: Persistent multifocal patchy bilateral lower lung airspace opacities, increased in confluence at the left lung base, with new obscuration left hemidiaphragm. Associated minor volume loss. New blunting of the left costophrenic angle, and diffuse hazy opacity of the right lower lung is compatible with unchanged trace right and new small left pleural effusions. No pneumothorax. The cardiomediastinal silhouette is obscured. No acute osseous findings. Procedure Note Lorin Ruelas MD - 01/09/2022 EXAMINATION: XR CHEST ONE VIEW CLINICAL HISTORY: hx of suicide attempt, aspiration pneumonitis, RMLcollapse, extubated today, desaturating on hiflow TECHNIQUE: 1 view of the chest COMPARISON: Chest x-ray, 01/08/2022 FINDINGS: Persistent multifocal patchy bilateral lower lung airspace opacities,increased in confluence at the left lung base, with new obscuration lefthemidiaphragm. Associated minor volume loss. New blunting of the left costophrenic angle,and diffuse hazy opacity of the right lower lung is compatible with unchangedtrace right and new small left pleural effusions. No pneumothorax. The cardiomediastinal silhouette is obscured. No acute osseous findings. IMPRESSION Increased confluence of multifocal predominantly lower lobe bilateralpulmonary opacities, compatible with aspiration pneumonitis, with trace right andsmall left pleural effusions. I have personally reviewed the image(s) and the resident's interpretationand agree with the findings, Lorin Ruelas MD at 01/09/2022 11:00 PM Thank you for letting us participate in the care of this patient. If youare a health care provider and have any questions regarding this report,please contact the number below. For patients who have questions please contactthe health plant health care technician that requested your imaging first. Francisco Lynne DO IMG DX ORDERABLES * COVID-19 PCR (01/09/2022 8:55 PM EDT) SARS-CoV-2 RNA Not Detected Not Detected [facility] Comment: This result should be interpreted in combination with the clinical observations, patient history and epidemiological information in making a final diagnosis. For testing of asymptomatic individuals, assay performance characteristics and clinical utility have not been evaluated. Testing for SARS-CoV-2 (Severe acute respiratory syndrome coronavirus 2, formerly known as 2019 novel coronavirus or 2019-nCoV) to aid in the diagnosis of COVID-19 is performed using the [employer] m SARS-CoV-2 Assay as authorized by the FDA Emergency Use Authorization (EUA). This EUA assay is intended for In-vitro Diagnostic (IVD) use with respiratory specimens such as nasopharyngeal swabs collected from individuals during the acute phase of infection. This assay is performed based on the instructions for use provided by [employer] and additional guidance provided by CDC and FDA. Testing is performed in the [facility] within the Department of Pathology and Laboratory Medicine at [facility], certified under the Clinical Laboratory Improvement Amendments of 1988 (CLIA), 42 U.S.C. 263a, to perform high complexity tests. Assay performance has been verified according to clinical laboratory regulatory requirements for use with specimens collected from individuals suspected of COVID-19. Test results are provided above. A result of Not Detected indicates that the viral RNA target is not present above the limit of detection, but does not preclude SARS-CoV-2 infection. False negative results may occur if a specimen is improperly collected, transported or handled; if amplification inhibitors are present; or if inadequate numbers of viral particles are present in the specimen. When a diagnostic test is negative, the possibility of a false negative result should be considered in the context of a patient's recent exposures and the presence of clinical signs and symptoms consistent with COVID-19. A result of Detected indicates that RNA from SARS-CoV-2 was detected and the patient is infected. As required or requested by public health authorities, positive specimens may be sent for additional testing. Positive and negative predictive values for this test are highly dependent on disease prevalence. A result of Invalid indicates that neither the viral RNA targets nor the internal control target was detected. An invalid result suggests the presence of inhibitors. Recollection and re-testing is recommended in the case of an invalid result. CDC COVID-19 criteria for testing on human specimens and clinical management guidance information are available at the CDC Coronavirus Disease 2019 (COVID-19) webpage under Information for Healthcare Professionals (https://www.cdc.gov/coronavirus/2019-ncov/hcp/index.html) Additional information about this and other EUA tests can be found in provider and patient fact sheets at the following FDA website: https://www.fda.gov/medical-devices/qxsmqpdpojy-zqbwbmt-1739-ktozy-22-zjskbnkdr- use-a yjrrbkvppzuna-kpzfoux-qulvtmw/izmvi-qpyromfioye-wgha SARS-CoV-2 RNA Source [employer]ARY ASSIST[employer] Swab [facility] Nasopharyngeal Swab 01/10/20 8:55 PM EDT 01/09/2022 10:05 PM EDT Comment:Symptoms->Surveillan ce Narrative Resulting Agency Comment Spec In Lab Francisco Lynne DO MOLECULAR ORDERABLES Performing Organization Address [facility] Co de Phone Number [facility] [place] [address] * Potassium (01/09/2022 1:40 PM EDT) Potassium 3.9 3.5 - 5.0 mmol/L [facility] Comment: Please note: ??Patients with WBC >100,000 may have falsely elevated Potassium levels. ??For accurate Potassium quantification in these patients send serum separator tube (gold top) for subsequent determinations. ??Contact the Clinical Chemistry Laboratory if there are any questions. Blood 01/09/2022 1:40 PM EDT 01/09/2022 1:43 PM EDT Narrative Resulting Agency Comment Spec In Lab Francisco E Gale DO CHEMISTRY ORDERABLES Performing Organization Address [facility] Co de Phone Number [facility] [place] [address] * (ABNORMAL) CK (01/09/2022 1:58 AM EDT) Creatine Kinase 1,682(H) 0 - 160 unit/L [facility] Blood Venous Draw / Unknown 01/09/2022 1:58 AM EDT 01/09/2022 2:18 AM EDT Narrative Resulting Agency Comment Spec In Lab Ronni Gan MD CHEMISTRY ORDERABLES Performing Organization Address City/[facility]/ZIP Co de Phone Number [facility] [place] [address] * Magnesium (01/09/2022 1:58 AM EDT) [facility] Magnesium 0.79 0.69 - 1.07 mmol/L [facility] Blood Venous Draw / Unknown 01/09/2022 1:58 AM EDT 01/09/2022 2:18 AM EDT Narrative Resulting Agency Comment Spec In Lab Telma Cameron MD CHEMISTRY ORDERABLES Performing Organization Address [facility] Co de Phone Number [facility] [place] [address] * (ABNORMAL) Differential, Automated (01/09/2022 1:58 AM EDT) [facility] Neutrophil % 89.4 % [facility] Neutrophil Absolute 7.50(H) 1.70 - 6.10 x10(3)/mc L [facility] Lymph % 5.3 % [facility] Lymphocytes Abs 0.4(L) 0.9 - 3.2 x10(3)/mc L [facility] Monocyte % 3.8 % [facility] Monocyte Abs 0.3 0.3 - 0.9 x10(3)/mc L [facility] Eos % 0.0 % [facility] Eosinophils Abs 0.0 0.0 - 0.4 x10(3)/mc L [facility] Basophil % 0.4 % [facility] Baso Absolute 0.0 0.0 - 0.1 x10(3)/mc L [facility] Immature Gran % 1.10 % [facility] Comment: Immature granulocytes(IG's)percentage and absolute count will include metamyelocytes, myelocytes, and promyelocytes. Blood smears from CBCs yielding IG's will be scanned manually for concordance. If this scan disagrees with the automated IG or if promyelocytes are noted, a manual differential will be performed. Immature Gran Absolute 0.09(H) 0.00 - 0.04 x10(3)/mc L [facility] Blood 01/09/2022 1:58 AM EDT 01/09/2022 2:04 AM EDT Narrative Resulting Agency Comment Spec In Lab Ronni Gan MD HEMATOLOGY ORDERABLE S [facility] [place] [address] * (ABNORMAL) Hemogram (01/09/2022 1:58 AM EDT) White Blood Cell 8.4 4.0 - 9.5 x10(3)/mc L [facility] Red Blood Cell 2.88(L) 4.00 - 5.21 x10(6)/mc L [facility] Hemoglobin 9.7(L) 11.7 - 15.5 g/dL [facility] Hematocrit 28.0(L) 35.7 - 45.8 % [facility] Mean Cell Volume 97.2(H) 82.6 - 94.4 fL [facility] Mean Cell Hemoglobin 33.7(H) 27.1 - 32.0 pg [facility] Mean Cell Hemoglobin Concentration 34.6 31.7 - 35.0 g/dL [facility] Platelet 141(L) 145 - 357 x10(3)/mc L [facility] RDW Standard Deviation 43.3 37.0 - 46.0 fL [facility] RDW coefficient of variation 12.1 11.5 - 14.1 % [facility] Mean Platelet Volume 10.6 7.6 - 12.9 fL [facility] NRBC% auto 0.0 % [facility] NRBC Absolute 0.000 0.000 - 0.000 x10(3)/mc L [facility] Blood 01/09/2022 1:58 AM EDT 01/09/2022 2:04 AM EDT Narrative Resulting Agency Comment Spec In Lab Ronni Gan MD HEMATOLOGY ORDERABLE S [facility] [place] [address] * (ABNORMAL) Basic Metabolic Panel (non-fasting) (01/09/2022 1:58 AM EDT) Glucose 116 65 - 199 mg/dL [facility] Comment:Diabetes: >=200 mg/d L plus symptoms Blood Urea Nitrogen 13 8 - 18 mg/dL [facility] Creatinine 0.51(L) 0.70 - 1.20 mg/dL [facility] Sodium 139 135 - 145 mmol/L [facility] Potassium 3.2(L) 3.5 - 5.0 mmol/L [facility] Comment: result rechecked-bm Please note: ??Patients with WBC >100,000 may have falsely elevated Potassium levels. ??For accurate Potassium quantification in these patients send serum separator tube (gold top) for subsequent determinations. ??Contact the Clinical Chemistry Laboratory if there are any questions. Chloride 104 98 - 107 mmol/L [facility] Carbon Dioxide 24 22 - 31 mmol/L [facility] Anion Gap 11 5 - 15 mmol/L [facility] Calcium 8.4(L) 8.5 - 10.5 mg/dL [facility] Est Glomerular Filtration Rate 103 >=60 mL/min/1. 73 m?? [facility] Comment: This patient? s estimated glomerular filtration rate (eGFR) is between 103 mL/min/1.73 m2 (patients with less muscle mass) and 119 mL/min/1.73 m2 (patients with more muscle mass) [...] and symptoms in addition to eGFR. Blood 01/09/2022 1:58 AM EDT 01/09/2022 2:04 AM EDT Narrative Resulting Agency Comment Spec In Lab Francisco Lynne DO CHEMISTRY ORDERABLES Performing Organization Address [facility] Co de Phone Number [facility] [place] [address] * (ABNORMAL) CK (01/08/2022 11:05 AM EDT) Creatine Kinase 1,275(H) 0 - 160 unit/L [facility] Blood 01/08/2022 11:0 5 AM EDT 01/08/2022 11:12 AM EDT Narrative Resulting Agency Comment Spec In Lab David Valdivia MD CHEMISTRY ORDERABLES Performing Organization Address [facility] de Phone Number [facility] [place] [address] * XR Chest One View (01/08/2022 6:53 AM EDT) Anatomical Region Laterality Modality Chest N/A Digital Radiogra phy Impressions 01/08/2022 6:57 AM EDT New bibasilar patchy airspace opacities with total opacification of right middle lobe acute represent aspiration pneumonitis. Thank you for letting us participate in the care of this patient. ??If you are a health care provider and have any questions regarding this report, please contact the number below. ??For patients who have questions please contact the health plant health care technician that requested your imaging first. ? Electronically signed by: Bob Escalante MD, [facility] ([phone]), at 01/08/2022 6:57 AM Narrative 01/08/2022 6:57 AM EDT EXAMINATION: XR CHEST ONE VIEW CLINICAL HISTORY: acute desat, coarse lung sounds, concern for fluid overload TECHNIQUE: 1 view of the chest COMPARISON: Chest x-ray 01/07/2022 and 08/16/2013. FINDINGS: Trachea, mainstem bronchi and beth are within normal limits. Partially obscured cardiomediastinal silhouette. New bibasilar patchy airspace opacities with total opacification of right middle lobe. No sizable pleural effusion or pneumothorax. Unchanged osseous structures. Unremarkable upper abdomen. Procedure Note Eran Escalante MD - 01/08/2022 EXAMINATION: XR CHEST ONE VIEW CLINICAL HISTORY: acute desat, coarse lung sounds, concern for fluidoverload TECHNIQUE: 1 view of the chest COMPARISON: Chest x-ray 01/07/2022 and 08/16/2013. FINDINGS: Trachea, mainstem bronchi and beth are within normal limits. Partiallyobscured cardiomediastinal silhouette. New bibasilar patchy airspace opacities withtotal opacification of right middle lobe. No sizable pleural effusion orpneumothorax. Unchanged osseous structures. Unremarkable upper abdomen. IMPRESSION New bibasilar patchy airspace opacities with total opacification of rightmiddle lobe acute represent aspiration pneumonitis. Thank you for letting us participate in the care of this patient. If youare a health care provider and have any questions regarding this report,please contact the number below. For patients who have questions please contactthe health plant health care technician that requested your imaging first. Electronically signed by: Bob Escalante MD, [facility]([phone]), at 01/08/2022 6:57 AM David Valdivia MD IMG DX ORDERABLES * Differential, Automated (01/08/2022 1:42 AM EDT) Neutrophil % 80.9 % [facility] Neutrophil Absolute 5.60 1.70 - 6.10 x10(3)/[facility] Lymph % 14.4 % [facility] Lymphocytes Abs 1.0 0.9 - 3.2 x10(3)/[facility] Monocyte % 4.0 % [facility] Monocyte Abs 0.3 0.3 - 0.9 x10(3)/[facility] Eos % 0.0 % [facility] Eosinophils Abs 0.0 0.0 - 0.4 x10(3)/[facility] Basophil % 0.3 % [facility] Baso Absolute 0.0 0.0 - 0.1 x10(3)/[facility] [place] [place] Immature Gran % 0.40 % [facility] Comment: Immature granulocytes(IG's)percentage and absolute count will include metamyelocytes, myelocytes, and promyelocytes. Blood smears from CBCs yielding IG's will be scanned manually for concordance. If this scan disagrees with the automated IG or if promyelocytes are noted, a manual differential will be performed. Immature Gran Absolute 0.03 0.00 - 0.04 x10(3)/[facility] Blood 01/08/2022 1:42 AM EDT 01/08/2022 1:48 AM EDT Narrative Resulting Agency Comment Spec In Lab Ronni Gan MD HEMATOLOGY ORDERABLE S [facility] [place] [address] * (ABNORMAL) Hemogram (01/08/2022 1:42 AM EDT) White Blood Cell 6.9 4.0 - 9.5 x10(3)/mc L [facility] Red Blood Cell 3.00(L) 4.00 - 5.21 x10(6)/ L [facility] Hemoglobin 9.9(L) 11.7 - 15.5 g/dL [facility] Hematocrit 29.6(L) 35.7 - 45.8 % [facility] Mean Cell Volume 98.7(H) 82.6 - 94.4 fL [facility] Mean Cell Hemoglobin 33.0(H) 27.1 - 32.0 pg [facility] Mean Cell Hemoglobin Concentration 33.4 31.7 - 35.0 g/dL [facility] Platelet 145 145 - 357 x10(3)/mc L [facility] RDW Standard Deviation 44.4 37.0 - 46.0 fL [facility] RDW coefficient of variation 12.2 11.5 - 14.1 % [facility] Mean Platelet Volume 10.5 7.6 - 12.9 fL [facility] NRBC% auto 0.0 % [facility] NRBC Absolute 0.000 0.000 - 0.000 x10(3)/mc L [facility] Blood 01/08/2022 1:42 AM EDT 01/08/2022 1:48 AM EDT Narrative Resulting Agency Comment Spec In Lab Ronni Gan MD HEMATOLOGY ORDERABLE S [facility] [place] [address] * (ABNORMAL) Basic Metabolic Panel (non-fasting) (01/08/2022 1:42 AM EDT) Glucose 102 65 - 199 mg/dL [facility] Comment:Diabetes: >=200 mg/d L plus symptoms Blood Urea Nitrogen 12 8 - 18 mg/dL [facility] Creatinine 0.57(L) 0.70 - 1.20 mg/dL [facility] Sodium 140 135 - 145 mmol/L [facility] Potassium 4.5 3.5 - 5.0 mmol/L [facility] Comment: Please note: ??Patients with WBC >100,000 may have falsely elevated Potassium levels. ??For accurate Potassium quantification in these patients send serum separator tube (gold top) for subsequent determinations. ??Contact the Clinical Chemistry Laboratory if there are any questions. Chloride 106 98 - 107 mmol/L [facility] Carbon Dioxide 22 22 - 31 mmol/L [facility] Anion Gap 12 5 - 15 mmol/L [facility] Calcium 8.5 8.5 - 10.5 mg/dL [facility] Est Glomerular Filtration Rate 99 >=60 mL/min/1. 73 m?? [facility] Comment: This patient? s estimated glomerular filtration rate (eGFR) is between 99 mL/min/1.73 m2 (patients with less muscle mass) and 115 mL/min/1.73 m2 (patients with more muscle mass) [...] and symptoms in addition to eGFR. Blood 01/08/2022 1:42 AM EDT 01/08/2022 1:48 AM EDT Narrative Resulting Agency Comment Spec In Lab Francisco Lynne DO CHEMISTRY ORDERABLES Performing Organization Address [facility]/ZIP Co de Phone Number [facility] [place] [address] * (ABNORMAL) CK (01/07/2022 10:55 PM EDT) Creatine Kinase 1,209(H) 0 - 160 unit/L [facility] Blood 01/07/2022 10:5 5 PM EDT 01/07/2022 11:39 PM EDT Narrative Resulting Agency Comment Spec In Lab David Valdivia MD CHEMISTRY ORDERABLES Performing Organization Address [facility]/ZIP Co [place] [address] * EEG awake, asleep, drowsy, routine (01/07/2022 7:10 PM EDT) Narrative Sanjay Wang MD - 01/07/2022 7:10 PM EDT Sanjay Wang MD ? 01/10/2022 ??8:01 PM [facility] Department of Neurology Inpatient EEG Report Name of the Patient: ??Aziza Fields Date of : ?1960 Date of Service: ?01/07/2022 Referring physician: ?Ronni Gan MD. BRIEF HISTORY: Aziza Fields is a 61 y.o. patient with concern for seizure-like activity. MEDICATIONS: Current Facility-Administered Medications Medication Dose Route Frequency Provider Last Rate Last Admin ? ? NORepinephrine (Levophed) (16 mcg/mL) in dextrose 5% 250 mL infusion ??0-100 mcg/min Intravenous Continuous Telma Cameron MD ?? Stopped at 01/07/22 1400 ? ? propofoL (Diprivan) (10 mg/mL) infusion ??0-50 mcg/kg/min Intravenous Continuous Telma Cameron MD ?? Paused at 01/07/22 0929 And ? ? propofoL (Diprivan) (10 mg/mL) bolus from infusion 10 mg ??10 mg Intravenous Q10 Min PRN Telma Cameron MD ?? 10 mg at 01/07/22 0603 ? ? chlorhexidine (Peridex) 0.12 % oral solution 15 mL ??15 mL Oral BID Telma Cameron MD ?? 15 mL at 01/07/22 0914 ? ? fentaNYL (PF) (50 mcg/mL) injection 50 mcg ??50 mcg Intravenous Q1H PRN Lauren Rangel MD ?? 50 mcg at 01/07/22 0612 ? ? ampicillin-sulbactam (Unasyn) 1.5 g vial attach to sodium chloride 0.9% 50 mL Mini-Bag Plus ??1.5 g Intravenous Q6H Ronni Gan MD ?? Stopped at 01/07/22 1733 ? ? enoxaparin (Lovenox) (30 mg/0.3 mL) subcutaneous injection 30 mg ??30 mg Subcutaneous Nightly Amador Toledo MD ? famotidine (Pepcid) tablet 20 mg ??20 mg Per NG tube 2 times per day Amador Toledo MD ? LORazepam (Ativan) (2 mg/mL) injection 1 mg ??1 mg Intravenous Once Amador Toledo MD ? lactated ringers infusion ??250 mL/hr Intravenous Continuous Amador Toledo MD 250 mL/hr at 01/07/22 1847 250 mL/hr at 01/07/22 1847 Facility-Administered Medications Ordered in Other Encounters Medication Dose Route Frequency Provider Last Rate Last Admin ? ? lactated ringers infusion ?Continuous PRN Kasey Ames MD ??New Bag at 12/11/13 0805 METHODS: A 21 channel digitized electroencephalogram was performed in the [facility] Clinical Neurophysiology Laboratory. The 10/20 international system of electrode placement was used and bipolar and referential electrode montages were recorded. ??In addition to EEG the patient was monitored for EKG and lateral/vertical eye movements. Video was recorded during the session. The duration of the recording was 60 minutes. QUEEN PRODUCER'S REPORT: Performed by: KR/PL Patient was not sleep deprived. Sleep was not attained. Photic stimulation was not performed (photic light not working). Hyperventilation was not performed. Effort was not adequate. Movement and other artifact was significant. Comments: ELECTROENCEPHALOGRAPHER'S REPORT: Background During the awake state with the eyes closed the background consisted of a low amplitude, 8 Hz posterior reactive rhythm that attenuated appropriately with eye opening. Beta activity was distributed diffusely with an anterior predominance. There was a normal anterior-posterior voltage gradient. With eye opening the background activity changed to a low voltage mixture of alpha, beta, and occasional theta range frequencies. There were no significant asymmetries of background activity noted. There was nearly continuous slowing of background frequencies to delta range. Sleep Stage II sleep was not obtained. Hyperventilation: Hyperventilation was not performed due to inadequate effort. Photic Stimulation: Photic stimulation was not performed due to technical issue with light source. Abnormal Epileptiform/Rhythmic/Periodic Activity: None Clinical Events: None EKG EKG revealed normal sinus rhythm. PRIOR EEG: No previous EEG reports were available. INTERPRETATION: This EEG is abnormal due to: 1. Abundant slowing of background to delta frequencies during wakefulness CLINICAL CORRELATION: This approximately 1 hour EEG is abnormal with evidence of moderate global cerebral dysfunction which is nonspecific in etiology. There may be a drug effect from propofol. No epileptiform activity is noted. If there is continued clinical concern that this patient may be having seizure, the diagnostic yield can be increased by obtaining a prolonged recording that captures sleep. Stewart Ellington MD Epilepsy Fellow PGY-5 Date of EEG Read: 01/08/2022 Neurology Attending I have personally reviewed the EEG, and I agree with the details as written. ?? The above report was formulated in discussion with me at the time of EEG reading, and I agree with it as documented. Sanjay Wang MD [place] [address] Pager: [phone], #[phone] Email: [email or web address] CC: Ronni Gan MD David Valdivia MD NEUROLOGY ORDERABLES * (ABNORMAL) BLOOD GAS 2 ARTERIAL (01/07/2022 5:07 PM EDT) pH, Arterial 7.29(Criti desire) 7.35 - 7.45 [facility] PCO2, Arterial 44 35 - 45 mmHg [facility] PO2, Arterial 39(Critica l) 85 - 104 mmHg [facility] Bicarbonate, Arterial 20.6 20.0 - 26.0 mmol/L [facility] Base Excess, Arterial -6.0(L) -3.0 - 3.0 mmol/L [facility] Hgb Blood Gas 12.5 11.7 - 15.5 g/dL [facility] Oxyhemoglobin, Arterial 69.6(L) 94.0 - 97.0 % [facility] Carboxyhemoglob in, Arterial 0.3 % [facility] Comment: Nonsmokers: 0.5-1.5% COHB Smokers: Variable, but usually less than 10% Toxic: 20-30% COHB Lethal: Greater than 60% COHB Methemoglobin, Arterial 0.6 <=1.5 % [facility] Na Whole Blood 137 135 - 145 mmol/L [facility] K Whole Blood 4.4 3.5 - 5.0 mmol/L [facility] Comment: Please note: Patients with WBC >100,000 may have falsely elevated Potassium levels. Contact the Clinical Chemistry Laboratory if there are any questions. ICa Whole Blood 1.20 1.15 - 1.33 mmol/L [facility] Comment: Note: ??Total bilirubin higher than 20 mg/dL may lead to falsely low ionized calcium. CL Whole Blood 104 98 - 107 mmol/L [facility] Gluc Whole Bld 115 65 - 199 mg/dL [facility] Comment:Diabetes: >=200 mg/d L plus symptoms. Lactate WB 2.3(H) 0.5 - 2.2 mmol/L [facility] Blood 01/07/2022 5:07 PM EDT 01/07/2022 5:07 PM EDT David Valdivia MD POINT OF CARE TEST O RDERABLES [facility] [place] [address] * MRI Brain wo Contrast (01/07/2022 4:18 PM EDT) Anatomical Region Laterality Modality Head Magnetic Resonan ce Impressions 01/07/2022 4:43 PM EDT No evidence for acute process. Thank you for letting us participate in the care of this patient. ??If you are a health care provider and have any questions regarding this report, please contact the number below. ??For patients who have questions please contact the health plant health care technician that requested your imaging first. ? Electronically signed by: MISAEL Evans [facility] ([phone]), at 01/07/2022 4:43 PM Narrative 01/07/2022 4:43 PM EDT EXAMINATION: MRI BRAIN WO CONTRAST CLINICAL HISTORY: Seizure, new-onset, no history of trauma TECHNIQUE: Routine MRI of the brain was performed without contrast COMPARISON: MRI brain 08/04/2018 FINDINGS: No diffusion-weighted abnormality, mass effect or extra-axial collection. No evidence for hemorrhage. A few scattered nonspecific small foci of white matter T2 prolongation which may reflect chronic microangiopathy. No acute hemorrhage. The ventricles are normal in caliber. Regional marrow signal is normal. Small submucosal retention cyst in the left maxillary sinus. Mild ethmoid air cell mucosal thickening. Mild prominence of CSF in the optic nerve sheaths. The orbits otherwise appear normal. Subgaleal or scalp edema in the suboccipital region as well as right parietal region. Partial fluid opacification of right mastoid air cells. Procedure Note Magui Yang MD - 01/07/2022 EXAMINATION: MRI BRAIN WO CONTRAST CLINICAL HISTORY: Seizure, new-onset, no history of trauma TECHNIQUE: Routine MRI of the brain was performed without contrast COMPARISON: MRI brain 08/04/2018 FINDINGS: No diffusion-weighted abnormality, mass effect or extra-axial collection. No evidence for hemorrhage. A few scattered nonspecific smallfoci of white matter T2 prolongation which may reflect chronic microangiopathy.No acute hemorrhage. The ventricles are normal in caliber. Regional marrowsignal is normal. Small submucosal retention cyst in the left maxillary sinus.Mild ethmoid air cell mucosal thickening. Mild prominence of CSF in the opticnerve sheaths. The orbits otherwise appear normal. Subgaleal or scalp edema inthe suboccipital region as well as right parietal region. Partial fluid opacification of right mastoid air cells. IMPRESSION No evidence for acute process. Thank you for letting us participate in the care of this patient. If youare a health care provider and have any questions regarding this report,please contact the number below. For patients who have questions please contactthe health plant health care technician that requested your imaging first. David Valdivia MD IMG MRI ORDERABLES * Phosphorus (01/07/2022 2:10 PM EDT) Phosphorus 3.7 2.5 - 4.5 mg/dL [facility] Blood 01/07/2022 2:10 PM EDT 01/07/2022 2:29 PM EDT Narrative Resulting Agency Comment Spec In Lab David Valdivia MD CHEMISTRY ORDERABLES Performing Organization Address [facility]/ZIP Co de Phone Number [facility] [place] [address] * Magnesium (01/07/2022 2:10 PM EDT) Pathologist [facility] Magnesium 0.91 0.69 - 1.07 mmol/L [facility] Blood 01/07/2022 2:10 PM EDT 01/07/2022 2:29 PM EDT Narrative Resulting Agency Comment Spec In Lab David Valdivia MD CHEMISTRY ORDERABLES Performing Organization Address [facility]/ZIP Co de Phone Number [facility] [place] [address] * (ABNORMAL) Basic Metabolic Panel (non-fasting) (01/07/2022 2:10 PM EDT) Glucose 125 65 - 199 mg/dL [facility] Comment:Diabetes: >=200 mg/d L plus symptoms Blood Urea Nitrogen 13 8 - 18 mg/dL [facility] Creatinine 0.74 0.70 - 1.20 mg/dL [facility] Sodium 138 135 - 145 mmol/L [facility] Potassium 4.3 3.5 - 5.0 mmol/L [facility] Comment: Please note: ??Patients with WBC >100,000 may have falsely elevated Potassium levels. ??For accurate Potassium quantification in these patients send serum separator tube (gold top) for subsequent determinations. ??Contact the Clinical Chemistry Laboratory if there are any questions. Chloride 105 98 - 107 mmol/L [facility] Carbon Dioxide 20(L) 22 - 31 mmol/L [facility] Anion Gap 13 5 - 15 mmol/L [facility] Calcium 8.6 8.5 - 10.5 mg/dL [facility] Est Glomerular Filtration Rate 87 >=60 mL/min/1. 73 m?? [facility] Comment: This patient? s estimated glomerular filtration rate (eGFR) is between 87 mL/min/1.73 m2 (patients with less muscle mass) and 101 mL/min/1.73 m2 (patients with more muscle mass) [...] and symptoms in addition to eGFR. Blood 01/07/2022 2:10 PM EDT 01/07/2022 2:29 PM EDT Narrative Resulting Agency Comment Spec In Lab David Valdivia MD CHEMISTRY ORDERABLES [facility] [place] [address] * Lactate, whole blood, [place] lab [place] [place] [place] (01/07/2022 2:10 PM EDT) Lactate WB 2.0 0.5 - 2.2 mmol/L [facility] Blood 01/07/2022 2:10 PM EDT 01/07/2022 2:22 PM EDT Narrative Resulting Agency Comment Spec In Lab David Valdivia MD CHEMISTRY ORDERABLES [facility] [place] [address] * Prolactin (01/07/2022 2:10 PM EDT) Prolactin 21.4 4.8 - 23.3 ng/mL [facility] Blood 01/07/2022 2:10 PM EDT 01/07/2022 2:29 PM EDT Narrative Resulting Agency Comment Spec In Lab David Valdivia MD CHEMISTRY ORDERABLES Performing Organization Address [facility]/ZIP Co de Phone Number [facility] [place] [address] * (ABNORMAL) CK (01/07/2022 2:10 PM EDT) Creatine Kinase 980(H) 0 - 160 unit/L [facility] Blood 01/07/2022 2:10 PM EDT 01/07/2022 2:29 PM EDT Narrative Resulting Agency Comment Spec In Lab David Valdivia MD CHEMISTRY ORDERABLES Performing Organization Address City/[facility]/ZIP Co de Phone Number [facility] [place] [address] * Lavender Tube HOLD (01/07/2022 11:00 AM EDT) Lavender Hold Sample in lab. [facility] Blood No Charge / Unknown 01/07/2022 11:00 AM EDT 01/07/2022 11:12 AM EDT Ronni Gan MD HEMATOLOGY ORDERABLE S [facility] [place] [address] * Green Tube HOLD (01/07/2022 11:00 AM EDT) Green Hold Sample in lab. [facility] Blood No Charge / Unknown 01/07/2022 11:00 AM EDT 01/07/2022 11:11 AM EDT Ronni Gan MD CHEMISTRY ORDERABLES [facility] [place] [address] * XR Pelvis (Generic) (01/07/2022 7:10 AM EDT) Anatomical Region Laterality Modality Pelvis N/A Digital Radiogra phy Impressions 01/07/2022 8:03 AM EDT No acute fracture or dislocation. Thank you for letting us participate in the care of this patient. ??If you are a health care provider and have any questions regarding this report, please contact the number below. ??For patients who have questions please contact the health plant health care technician that requested your imaging first. ? Narrative 01/07/2022 8:03 AM EDT EXAMINATION: XR PELVIS (GENERIC) CLINICAL HISTORY: s/p found down SI attempt unresponsive eval for fx TECHNIQUE: 1 views of the pelvis COMPARISON: Abdominal radiographs 01/07/2022. FINDINGS: Urinary catheter in place. Degenerative changes in lower lumbar spine. Symmetric SI joints. No pubic symphysis diastasis or craniocaudal translation. No acute fracture or dislocation. Pelvic phleboliths. Nonobstructive bowel gas pattern. Procedure Note Eran Escalante MD - 01/07/2022 EXAMINATION: XR PELVIS (GENERIC) CLINICAL HISTORY: s/p found down SI attempt unresponsive eval for fx TECHNIQUE: 1 views of the pelvis COMPARISON: Abdominal radiographs 01/07/2022. FINDINGS: Urinary catheter in place. Degenerative changes in lower lumbar spine.Symmetric SI joints. No pubic symphysis diastasis or craniocaudal translation. Noacute fracture or dislocation. Pelvic phleboliths. Nonobstructive bowel gaspattern. IMPRESSION No acute fracture or dislocation. Thank you for letting us participate in the care of this patient. If youare a health care provider and have any questions regarding this report,please contact the number below. For patients who have questions please contactthe health plant health care technician that requested your imaging first. Electronically signed by: Bob Escalante MD, [facility]([phone]), at 01/07/2022 8:03 AM Jose Juan Aparicio MD IMG DX ORDERABLES * CT Cervical Spine wo Contrast (01/07/2022 5:07 AM EDT) Anatomical Region Laterality Modality C-spine Computed Tomogra phy 01/07/2022 5:27 AM EDT Impressions 01/07/2022 5:28 AM EDT * ??No acute fracture or dislocation. * ??Minimal C3-C4, C4-C5 and C5-C6 retrolistheses. * ??Multilevel degenerative changes as detailed above. Preliminary report signed by: Andrea Machuca at 01/07/2022 5:23 AM I have personally reviewed the image(s) and the resident's interpretation and agree with the findings, Bob Escalante MD at 01/07/2022 5:28 AM Thank you for letting us participate in the care of this patient. ??If you are a health care provider and have any questions regarding this report, please contact the number below. ??For patients who have questions please contact the health plant health care technician that requested your imaging first. ? Electronically signed by: Bob Escalante MD, [facility] ([phone]), at 01/07/2022 5:28 AM Narrative 01/07/2022 5:28 AM EDT EXAMINATION: CT CERVICAL SPINE WO CONTRAST CLINICAL HISTORY: Neck trauma, abnormal mental status or neuro exam (Ped 3-15y); Found down after suicide attempt, unresponsive eval for S spine injury TECHNIQUE: CT cervical spine performed without intravenous contrast administration. COMPARISON: None FINDINGS: Exaggerated cervical lordosis. No acute fracture or dislocation. Minimal C3-C4, C4-C5 and C5-C6 retrolistheses. Multilevel degenerative changes in the spine. Posterior disc bulge effaces the thecal sac at C5-C6. Mild bilateral neuroforaminal narrowing at C6-C7. Prevertebral and paravertebral soft tissues are within normal limits. Partially visualized endotracheal and enteric tubes. Biapical pleural-parenchymal scarring. . Procedure Note Eran Escalante MD - 01/07/2022 EXAMINATION: CT CERVICAL SPINE WO CONTRAST CLINICAL HISTORY: Neck trauma, abnormal mental status or neuro exam (Ped3-15y); Found down after suicide attempt, unresponsive eval for S spine injury TECHNIQUE: CT cervical spine performed without intravenous contrast administration. COMPARISON: None FINDINGS: Exaggerated cervical lordosis. No acute fracture or dislocation. MinimalC3-C4, C4-C5 and C5-C6 retrolistheses. Multilevel degenerative changes in thespine. Posterior disc bulge effaces the thecal sac at C5-C6. Mild bilateral neuroforaminal narrowing at C6-C7. Prevertebral and paravertebral softtissues are within normal limits. Partially visualized endotracheal and enterictubes. Biapical pleural-parenchymal scarring. . IMPRESSION * No acute fracture or dislocation. * Minimal C3-C4, C4-C5 and C5-C6 retrolistheses. * Multilevel degenerative changes as detailed above. Preliminary report signed by: Andrea Machuca at 01/07/2022 5:23 AM I have personally reviewed the image(s) and the resident's interpretationand agree with the findings, Bob Escalante MD at 01/07/2022 5:28 AM Thank you for letting us participate in the care of this patient. If youare a health care provider and have any questions regarding this report,please contact the number below. For patients who have questions please contactthe health plant health care technician that requested your imaging first. Electronically signed by: Bob Escalante MD, [facility]([phone]), at 01/07/2022 5:28 AM Jose Juan Aparicio MD IMG CT ORDERABLES * CT Head wo Contrast (Generic) (01/07/2022 5:07 AM EDT) Anatomical Region Laterality Modality Head Computed Tomogra phy 01/07/2022 5:27 AM EDT Impressions 01/07/2022 5:23 AM EDT No acute intracranial pathology. Preliminary report signed by: Andrea Machuca at 01/07/2022 5:16 AM I have personally reviewed the image(s) and the resident's interpretation and agree with the findings, Bob Escalante MD at 01/07/2022 5:23 AM Thank you for letting us participate in the care of this patient. ??If you are a health care provider and have any questions regarding this report, please contact the number below. ??For patients who have questions please contact the health plant health care technician that requested your imaging first. ? Electronically signed by: Bob Escalante MD, [facility] ([phone]), at 01/07/2022 5:23 AM Narrative 01/07/2022 5:23 AM EDT EXAMINATION: CT HEAD WO CONTRAST (GENERIC) CLINICAL HISTORY: Mental status change, unknown cause; Found unresponsive after suicide attempt TECHNIQUE: CT head performed without intravenous contrast administration. COMPARISON: MRI brain 08/04/2018 FINDINGS: Streak artifact limits evaluation. No intracranial hemorrhage, mass, mass effect, or midline shift. No calvarial fracture or extra-axial collection. Brooks-white matter differentiation is preserved. Normal ventricular system caliber. Basal cisterns are patent. Paranasal sinuses and mastoid air cells are well-aerated. 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 Procedure Note Eran Escalante MD - 01/07/2022 EXAMINATION: CT HEAD WO CONTRAST (GENERIC) CLINICAL HISTORY: Mental status change, unknown cause; Found unresponsiveafter suicide attempt TECHNIQUE: CT head performed without intravenous contrast administration. COMPARISON: MRI brain 08/04/2018 FINDINGS: Streak artifact limits evaluation. No intracranial hemorrhage, mass, mass effect, or midline shift. Nocalvarial fracture or extra-axial collection. Brooks-white matter differentiation is preserved. Normal ventricular system caliber. Basal cisterns are patent. Paranasal sinuses and mastoid air cells are well-aerated. Mucocele in theleft maxillary sinus. IMPRESSION No acute intracranial pathology. Preliminary report signed by: Andrea Machuca at 01/07/2022 5:16 AM I have personally reviewed the image(s) and the resident's interpretationand agree with the findings, Bob Escalante MD at 01/07/2022 5:23 AM Thank you for letting us participate in the care of this patient. If youare a health care provider and have any questions regarding this report,please contact the number below. For patients who have questions please contactthe health plant health care technician that requested your imaging first. Jose Juan Aparicio MD IMG CT ORDERABLES * (ABNORMAL) Urinalysis with reflex Culture (01/07/2022 4:11 AM EDT) Glucose, Urine Dipstick 100(A) Negative mg/dL [facility] Protein, Urine Dipstick Negative Negative mg/dL [facility] Bilirubin, Urine Dipstick Negative Negative mg/dL [facility] Comment: Clinical correlation required for positive Urine Bilirubin results as false positive may occur with some drugs and drug related products. If a false positive is suspected a serum total bilirubin should be considered if clinically indicated. Urobilinogen, Urine Dipstick Normal Normal mg/dL [facility] pH, Urn (dipstick) 5.0 5.0 - 8.0 [facility] Blood, Urine Dipstick Negative Negative mg/dL [facility] Ketone, Urine Dipstick 40(A) Negative mg/dL [facility] Nitrite, Urine Dipstick Negative Negative [facility] Leukocytes, Urine Dipstick Negative Negative [facility] Appearance, Urine Dipstick Clear Clear [facility] Specific [place] Urine Automated 1.019 1.005 - 1.030 [facility] Color, Urine Dipstick Yellow Yellow [facility] Reflex to Culture No [facility] Indwelling Catheter Urine 01/07/2022 4:11 AM EDT 01/07/2022 4:26 AM EDT Narrative Resulting Agency Comment Spec In Lab Jose Juan Aparicio MD URINE ORDERABLES Performing Organization Address City/State/[facility] Co de Phone Number [facility] [place] [address] * XR Abdomen 1 view (Generic) (01/07/2022 1:35 AM EDT) Anatomical Region Laterality Modality Abdomen N/A Digital Radiogra phy Impressions 01/07/2022 2:07 AM EDT Enteric tube terminates in the gastric antrum. Thank you for letting us participate in the care of this patient. ??If you are a health care provider and have any questions regarding this report, please contact the number below. ??For patients who have questions please contact the health plant health care technician that requested your imaging first. ? Electronically signed by: Bob Escalante MD, [facility] ([phone]), at 01/07/2022 2:07 AM Narrative 01/07/2022 2:07 AM EDT EXAMINATION: XR ABDOMEN 1 VIEW (GENERIC) CLINICAL HISTORY: assess NGT after transport TECHNIQUE: Single frontal view of the abdomen COMPARISON: None FINDINGS: Enteric tube terminates in the gastric antrum. Nonobstructive bowel gas pattern. No portal venous gas. Degenerative changes in the spine. Procedure Note Eran Escalante MD - 01/07/2022 EXAMINATION: XR ABDOMEN 1 VIEW (GENERIC) CLINICAL HISTORY: assess NGT after transport TECHNIQUE: Single frontal view of the abdomen COMPARISON: None FINDINGS: Enteric tube terminates in the gastric antrum. Nonobstructive bowel gaspattern. No portal venous gas. Degenerative changes in the spine. IMPRESSION Enteric tube terminates in the gastric antrum. Thank you for letting us participate in the care of this patient. If youare a health care provider and have any questions regarding this report,please contact the number below. For patients who have questions please contactthe health plant health care technician that requested your imaging first. Electronically signed by: Bob Escalante MD, [facility]([phone]), at 01/07/2022 2:07 AM Jose Juan Aparicio MD IMG DX ORDERABLES * XR Chest One View (01/07/2022 1:35 AM EDT) Anatomical Region Laterality Modality Chest N/A Digital Radiogra phy Impressions 01/07/2022 2:06 AM EDT * ??Endotracheal tube 10 cm above the emmanuel. Please advance. * ??Enteric tube courses below the diaphragm and beyond the [id number]. * ??Minimal central pulmonary vascular congestion. Thank you for letting us participate in the care of this patient. ??If you are a health care provider and have any questions regarding this report, please contact the number below. ??For patients who have questions please contact the health plant health care technician that requested your imaging first. ? Electronically signed by: Bob Escalante MD, [facility] ([phone]), at 01/07/2022 2:06 AM Narrative 01/07/2022 2:06 AM EDT EXAMINATION: XR CHEST ONE VIEW CLINICAL HISTORY: assess tube placement after transport TECHNIQUE: 1 view of the chest COMPARISON: Chest x-ray dated 08/16/2013 FINDINGS: Endotracheal tube 10 cm above the emmanuel. Enteric tube courses below the diaphragm and beyond the [id number]-[id number]. And trachea, mainstem bronchi, cardiomediastinal silhouette, and beth are within normal limits. Minimal central pulmonary vascular congestion. Biapical capping. No consolidation, pleural effusion or pneumothorax. Levocurvature of the lower thoracic spine. No displaced fracture. No dislocation. Unremarkable upper abdomen. Procedure Note Eran Escalante MD - 01/07/2022 EXAMINATION: XR CHEST ONE VIEW CLINICAL HISTORY: assess tube placement after transport TECHNIQUE: 1 view of the chest COMPARISON: Chest x-ray dated 08/16/2013 FINDINGS: Endotracheal tube 10 cm above the emmanuel. Enteric tube courses below the diaphragm and beyond the [id number]-he-[id number]. And trachea, mainstem bronchi, cardiomediastinal silhouette, and beth arewithin normal limits. Minimal central pulmonary vascular congestion. Biapicalcapping. No consolidation, pleural effusion or pneumothorax. Levocurvature of thelower thoracic spine. No displaced fracture. No dislocation. Unremarkableupper abdomen. IMPRESSION * Endotracheal tube 10 cm above the emmanuel. Please advance. * Enteric tube courses below the diaphragm and beyond the [id number]-kh-[id number]. * Minimal central pulmonary vascular congestion. Thank you for letting us participate in the care of this patient. If youare a health care provider and have any questions regarding this report,please contact the number below. For patients who have questions please contactthe health plant health care technician that requested your imaging first. Electronically signed by: Bob Escalante MD, [facility]([phone]), at 01/07/2022 2:06 AM Jose Juan Aparicio MD IMG DX ORDERABLES * (ABNORMAL) BLOOD GAS 2 ARTERIAL (01/07/2022 1:31 AM EDT) pH, Arterial 7.42 7.35 - 7.45 [facility] PCO2, Arterial 27(L) 35 - 45 mmHg [facility] PO2, Arterial 119(H) 85 - 104 mmHg [facility] Bicarbonate, Arterial 17.0(L) 20.0 - 26.0 mmol/L [facility] Base Excess, Arterial -7.5(L) -3.0 - 3.0 mmol/L [facility] Hgb Blood Gas 12.6 11.7 - 15.5 g/dL [facility] Oxyhemoglobin, Arterial 97.2(H) 94.0 - 97.0 % [facility] Carboxyhemoglob in, Arterial 0.3 % [facility] Comment: Nonsmokers: 0.5-1.5% COHB Smokers: Variable, but usually less than 10% Toxic: 20-30% COHB Lethal: Greater than 60% COHB Methemoglobin, Arterial 0.6 <=1.5 % [facility] Na Whole Blood 138 135 - 145 mmol/L [facility] K Whole Blood 4.2 3.5 - 5.0 mmol/L [facility] Comment: Please note: Patients with WBC >100,000 may have falsely elevated Potassium levels. Contact the Clinical Chemistry Laboratory if there are any questions. ICa Whole Blood 1.12(L) 1.15 - 1.33 mmol/L [facility] Comment: Note: ??Total bilirubin higher than 20 mg/dL may lead to falsely low ionized calcium. CL Whole Blood 108(H) 98 - 107 mmol/L [facility] Gluc Whole Bld 111 65 - 199 mg/dL [facility] Comment:Diabetes: >=200 mg/d L plus symptoms. Lactate WB 3.0(H) 0.5 - 2.2 mmol/L [facility] FIO2 Art 25 % [facility] PF Ratio Art 476 [facility] Blood 01/07/2022 1:31 AM EDT 01/07/2022 1:31 AM EDT Jose Juan Aparicio MD POINT OF CARE TEST O RDERABLES Performing Organization Address City/[facility]/ZIP Co de Phone Number [facility] [place] [address] * Type and Screen Validity (01/07/2022 12:19 AM EDT) T&S only valid at [facility] Comment:This Type and Screen result is only valid at the [facility] [place] [facility] Blood 01/07/2022 12:1 9 AM EDT 01/07/2022 12:44 AM EDT Narrative Resulting Agency Comment Spec In Lab Telma Cameron MD BLOOD BANK LAB ORDER BENJAMIN Performing Organization Address City/[facility]/ZIP Co de Phone Number [facility] [place] [address] * ABORH Recheck Status (01/07/2022 12:19 AM EDT) ABORH Type Recheck Completed [facility] Blood 01/07/2022 12:1 9 AM EDT 01/07/2022 12:44 AM EDT Narrative Resulting Agency Comment Spec In Lab Telma Cameron MD BLOOD BANK LAB ORDER BENJAMIN [facility] [place] [address] * Antibody screen (01/07/2022 12:19 AM EDT) [facility] Ab Screen Interp Negative [facility] Expires at [id number] on: 01/10/2022 [facility] Blood 01/07/2022 12:1 9 AM EDT 01/07/2022 12:44 AM EDT Narrative Resulting Agency Comment Spec In Lab Telma Cameron MD BLOOD BANK LAB ORDER BENJAMIN Performing Organization Address City/[facility]/ZIP Co de Phone Number [facility] [place] [address] * ABO/Rh Typing (01/07/2022 12:19 AM EDT) [facility] ABORH Type O Pos [facility] Blood 01/07/2022 12:1 9 AM EDT 01/07/2022 12:44 AM EDT Narrative Resulting Agency Comment Spec In Lab Telma Cameron MD BLOOD BANK LAB ORDER BENJAMIN Performing Organization Address City/[facility] Co de Phone Number [facility] [place] [address] * (ABNORMAL) Differential, Automated (01/07/2022 12:19 AM EDT) [facility] Neutrophil % 89.3 % [facility] Neutrophil Absolute 6.13(H) 1.70 - 6.10 x10(3)/mc L [facility] Lymph % 6.4 % [facility] Lymphocytes Abs 0.4(L) 0.9 - 3.2 x10(3)/mc L [facility] Monocyte % 3.9 % [facility] Monocyte Abs 0.3 0.3 - 0.9 x10(3)/mc L [facility] Eos % 0.0 % [facility] Eosinophils Abs 0.0 0.0 - 0.4 x10(3)/[facility] LABORATORY Basophil % 0.0 % [facility] Baso Absolute 0.0 0.0 - 0.1 x10(3)/[facility] LABORATORY Immature Gran % 0.40 % [facility] Comment: Immature granulocytes(IG's)percentage and absolute count will include metamyelocytes, myelocytes, and promyelocytes. Blood smears from CBCs yielding IG's will be scanned manually for concordance. If this scan disagrees with the automated IG or if promyelocytes are noted, a manual differential will be performed. Immature Gran Absolute 0.03 0.00 - 0.04 x10(3)/[facility] LABORATORY Blood 01/07/2022 12:1 9 AM EDT 01/07/2022 12:39 AM EDT Narrative Resulting Agency Comment Spec In Lab Telma Cameron MD HEMATOLOGY ORDERABLE S [facility] [place] [address] * (ABNORMAL) Hemogram (01/07/2022 12:19 AM EDT) White Blood Cell 6.9 4.0 - 9.5 x10(3)/[facility] LABORATORY Red Blood Cell 3.22(L) 4.00 - 5.21 x10(6)/ L [facility] Hemoglobin 10.7(L) 11.7 - 15.5 g/dL [facility] Hematocrit 32.2(L) 35.7 - 45.8 % [facility] Mean Cell Volume 100.0(H) 82.6 - 94.4 fL [facility] Mean Cell Hemoglobin 33.2(H) 27.1 - 32.0 pg [facility] Mean Cell Hemoglobin Concentration 33.2 31.7 - 35.0 g/dL [facility] Platelet 195 145 - 357 x10(3)/mc L [facility] RDW Standard Deviation 43.4 37.0 - 46.0 [facility] RDW coefficient of variation 11.9 11.5 - 14.1 % [facility] Mean Platelet Volume 10.9 7.6 - 12.9 [facility] LABORATORY NRBC% auto 0.0 % [facility] NRBC Absolute 0.000 0.000 - 0.000 x10(3)/mc L [facility] Blood 01/07/2022 12:1 9 AM EDT 01/07/2022 12:39 AM EDT Narrative Resulting Agency Comment Spec In Lab Telma Cameron MD HEMATOLOGY ORDERABLE S Performing Organization Address [facility] Co de Phone Number [facility] [place] [address] * Blood culture (01/07/2022 12:19 AM EDT) Blood Culture No growth at 5 days. [facility] Blood 01/07/2022 12:1 9 AM EDT 01/07/2022 12:52 AM EDT Comment:LFA Narrative Resulting Agency Comment Spec In Lab Jose Juan Aparicio MD MICROBIOLOGY - BLOOD ORDERABLES Performing Organization Address [facility] Co de Phone Number [facility] [place] [address] * Phosphorus (01/07/2022 12:19 AM EDT) Phosphorus 3.0 2.5 - 4.5 mg/dL [facility] Blood 01/07/2022 12:1 9 AM EDT 01/07/2022 12:39 AM EDT Narrative Resulting Agency Comment Spec In Lab Jose Juan Aparicio MD CHEMISTRY ORDERABLES Performing Organization Address [facility]/State/ZIP Co de Phone Number [facility] [place] [address] * (ABNORMAL) Magnesium (01/07/2022 12:19 AM EDT) Magnesium 0.64(L) 0.69 - 1.07 mmol/L [facility] Blood 01/07/2022 12:1 9 AM EDT 01/07/2022 12:39 AM EDT Narrative Resulting Agency Comment Spec In Lab Jose Juan Aparicio MD CHEMISTRY ORDERABLES Performing Organization Address City/[facility]/ZIP Co de Phone Number [facility] [place] [address] * APTT (01/07/2022 12:19 AM EDT) Partial Thromboplastin Time 25 25 - 37 sec [facility] Comment: The PTT is NOT appropriate for heparin monitoring. Use the Anti-Xa level for heparin monitoring (HEP UFH) or LMWH monitoring (HEP LMW). A PTT less than 37 seconds generally indicates adequate hemostasis. Blood 01/07/2022 12:1 9 AM EDT 01/07/2022 12:39 AM EDT Narrative Resulting Agency Comment Spec In Lab Jose Juan Aparicio MD HEMATOLOGY ORDERABLE S Performing Organization Address [facility]/ZIP Co de Phone Number [facility] [place] [address] * Prothrombin Time (01/07/2022 12:19 AM EDT) Prothrombin Time 12.4 9.4 - 12.5 sec [facility] International Normalization Ratio 1.1 [facility] Comment: An INR <2.0 indicates adequate procoagulant activity for hemostasis in most patients without underlying bleeding disorders, though the INR may not adequately reflect hemostatic capacity in patients with liver disease and synthetic impairment. The recommended target INR range for therapeutic anticoagulation is 2.0 ? 3.0 for most applications, though lower and higher ranges may be appropriate depending on clinical circumstances. Blood 01/07/2022 12:1 9 AM EDT 01/07/2022 12:39 AM EDT Narrative Resulting Agency Comment Spec In Lab Jose Juan Aparicio MD HEMATOLOGY ORDERABLE S [facility] [place] [address] * (ABNORMAL) Ethanol Level (01/07/2022 12:19 AM EDT) Ethanol 392(H) <=99 mg/L [facility] Comment: Greater than 800 mg/L (0.08%) should be considered intoxicated. 3400 to 4500 mg/L (0.34 - 0.45%) is considered severe intoxication. Greater than 5500 mg/L (0.55%) is usually fatal. Blood 01/07/2022 12:1 9 AM EDT 01/07/2022 12:39 AM EDT Narrative Resulting Agency Comment Spec In Lab Jose Juan Aparicio MD CHEMISTRY ORDERABLES Performing Organization Address [facility] Co de Phone Number [facility] [place] [address] * (ABNORMAL) Acetaminophen level (01/07/2022 12:19 AM EDT) Acetamin Lvl <5(L) 10 - 30 mg/L [facility] Comment: Levels >150 mg/L at 4 hours post ingestion or >75 mg/L at 8 hours post ingestion are often an indication for N-Acetylcysteine. Blood 01/07/2022 12:1 9 AM EDT 01/07/2022 12:39 AM EDT Narrative Resulting Agency Comment Spec In Lab Jose Juan Aparicio MD CHEMISTRY ORDERABLES Performing Organization Address City/[facility]/ZIP Co de Phone Number [facility] [place] [address] * Salicylate (01/07/2022 12:19 AM EDT) Salicylate 4 mg/L [facility] Comment: Therapeutic Range: ??< 200 mg/L Arthritic Therapy: ??150-300 mg/L Toxic: ?> 350 mg/L ??Concentrations > 500 mg/L may be an indication for alkalinization of urine. Concentrations > 800 mg/L are often an indication for hemodialysis. Blood 01/07/2022 12:1 9 AM EDT 01/07/2022 12:39 AM EDT Narrative Resulting Agency Comment Spec In Lab Jose Juan Aparicio MD CHEMISTRY ORDERABLES Performing Organization Address [facility] Co de Phone Number [facility] [place] [address] * (ABNORMAL) Osmolality (01/07/2022 12:19 AM EDT) Osmolality 302(H) 275 - 295 mOsm/kg [facility] Blood 01/07/2022 12:1 9 AM EDT 01/07/2022 12:39 AM EDT Narrative Resulting Agency Comment Spec In Lab Jose Juan Aparicio MD CHEMISTRY ORDERABLES Performing Organization Address [facility] Co de Phone Number [facility] [place] [address] * (ABNORMAL) Comprehensive metabolic panel (non-fasting) (01/07/2022 12:19 AM EDT) Glucose 90 65 - 199 mg/dL [facility] Comment:Diabetes: >=200 mg/d L plus symptoms Blood Urea Nitrogen 12 8 - 18 mg/dL [facility] Creatinine 0.78 0.70 - 1.20 mg/dL [facility] Sodium 140 135 - 145 mmol/L [facility] Potassium 4.3 3.5 - 5.0 mmol/L [facility] Comment: Please note: ??Patients with WBC >100,000 may have falsely elevated Potassium levels. ??For accurate Potassium quantification in these patients send serum separator tube (gold top) for subsequent determinations. ??Contact the Clinical Chemistry Laboratory if there are any questions. Chloride 107 98 - 107 mmol/L [facility] Carbon Dioxide 16(L) 22 - 31 mmol/L [facility] Anion Gap 17(H) 5 - 15 mmol/L [facility] Calcium 8.2(L) 8.5 - 10.5 mg/dL [facility] Protein, Total 5.3(L) 6.1 - 8.0 g/dL [facility] Albumin 3.4 3.2 - 5.2 g/dL [facility] Aspartate Aminotransferase Not Perf 0 - 30 [facility] Comment: Unable to quantitate due to sample hemolysis. ??Sample redraw suggested. Called by: howard, Read back by: emanuel vazquez, Date/Time:01/07/22 01:22. Alanine Aminotransferase 70(H) 0 - 30 unit/L [facility] Alkaline Phosphatase 39 35 - 105 unit/L [facility] Bilirubin, Total 0.2 0.2 - 1.3 mg/dL [facility] Est Glomerular Filtration Rate 81 >=60 mL/min/1. 73 m?? [facility] Comment: This patient? s estimated glomerular filtration rate (eGFR) is between 81 mL/min/1.73 m2 (patients with less muscle mass) and 94 mL/min/1.73 m2 (patients with more muscle mass) [...] and symptoms in addition to eGFR. Blood 01/07/2022 12:1 9 AM EDT 01/07/2022 12:39 AM EDT Narrative Resulting Agency Comment Spec In Lab Jose Juan Aparicio MD CHEMISTRY ORDERABLES Performing Organization Address City/[facility]/ZIP Co de Phone Number [facility] [place] [address] * EKG 12 Lead (01/07/2022 12:05 AM EDT) Ventricular rate 60 BPM MUSE SYSTEM Atrial Rate 60 BPM MUSE SYSTEM P-R Interval 174 ms MUSE SYSTEM QRS Duration 84 ms MUSE SYSTEM Q-T Interval 450 ms MUSE SYSTEM QTC Calculated (Bezet) 450 ms MUSE SYSTEM Calculated P [place] 77 degrees MUSE SYSTEM Calculated R [place] 56 degrees MUSE SYSTEM Calculated T [place] 92 degrees MUSE SYSTEM INTERPRETATION Normal sinus rhythm Nonspecific T wave abnormality Abnormal ECG When compared with ECG of 16-AUG-2013 12:27, Nonspecific T wave abnormality now evident in Lateral leads I personally reviewed the tracing and edited the fellows interpretation Confirmed by fellow Red Brown ([id number]) on 01/07/2022 10:21:59 AM Confirmed by MD MUÑOZ ARMIN ([id number]) on 01/08/2022 9:20:53 AM MUSE SYSTEM 01/07/2022 12:0 5 AM EDT 01/08/2022 9:20 AM EDT Jose Juan Aparicio MD ECG ORDERABLES Performing Organization Address City/[facility] Co de Phone Number MUSE SYSTEM * (ABNORMAL) Rapid Drug Screen w/o Confirmation, Urine (01/06/2022 11:59 PM EDT) Barbiturates Screen, Urine None Detected None Detected [facility] Comment: The barbiturate screen detects barbiturates at concentrations >200 ng/mL. Note: Not all barbiturates cross-react equally with antibody used in this screen. A ? Presumptive Positive? result indicates that the screening result was positive but has not yet been confirmed by a highly-specific method. As with any screen, occasional false positive results from cross-reacting substances may occur. Not for Medico-Legal Purposes. Benzodiazepines Screen, Urine None Detected None Detected [facility] Comment: The benzodiazepines screen detects benzodiazepines at concentrations >100 ng/mL. Not all benzodiazepines cross-react equally with antibody used in this screen. Due to the low dosage of clonazepam, false negatives may be obtained due to low concentration of clonazepam metabolites. A ? Presumptive Positive? result indicates that the screening result was positive but has not yet been confirmed by a highly-specific method. As with any screen, occasional false positive results from cross-reacting substances may occur. Not for Medico-Legal Purposes. Cocaine Screen, Urine None Detected None Detected [facility] Comment: The cocaine metabolites screen detects benzoylecgonine (Cocaine Metabolite) at concentrations >150 ng/mL. A ? Presumptive Positive? result indicates that the screening result was positive but has not yet been confirmed by a highly-specific method. As with any screen, occasional false positive results from cross-reacting substances may occur. Not for Medico-Legal Purposes. Methadone Metabolites Screen, Urine None Detected None Detected [facility] Comment: The methadone metabolite screen detects EDDP (major methadone metabolite) at concentrations >100 ng/mL. A ? Presumptive Positive? result indicates that the screening result was positive but has not yet been confirmed by a highly-specific method. As with any screen, occasional false positive results from cross-reacting substances may occur. Not for Medico-Legal Purposes. Opiate Screen, Urine None Detected None Detected [facility] Comment: The opiates screen detects opiates at concentrations >300 ng/mL. Please note that oxycodone, oxymorphone, fentanyl, tramadol, and other synthetic opioids are not detected by the opiate screen. A ? Presumptive Positive? result indicates that the screening result was positive but has not yet been confirmed by a highly-specific method. As with any screen, occasional false positive results from cross-reacting substances may occur. Not for Medico-Legal Purposes. Cannabinoid Screen, Urine None Detected None Detected [facility] Comment: The marijuana metabolites screen detects the THC metabolite (13-ecs-0-carboxy-delta 9-THC) at concentrations >20 ng/mL. A ? Presumptive Positive? result indicates that the screening result was positive but has not yet been confirmed by a highly-specific method. As with any screen, occasional false positive results from cross-reacting substances may occur. Not for Medico-Legal Purposes. Oxycodone Screen, Urine None Detected None Detected [facility] Comment: The oxycodone screen detects oxycodone and oxymorphone at concentrations >100 ng/mL. A ? Presumptive Positive? result indicates that the screening result was positive but has not yet been confirmed by a highly-specific method. As with any screen, occasional false positive results from cross-reacting substances may occur. Not for Medico-Legal Purposes. Buprenorphine Screen, Urine None Detected None Detected [facility] Comment: The buprenorphine screen detects buprenorphine at concentrations >5 ng/mL. A ? Presumptive Positive? result indicates that the screening result was positive but has not yet been confirmed by a highly-specific method. As with any screen, occasional false positive results from cross-reacting substances may occur. Not for Medico-Legal Purposes. Fentanyl Screen, Urine None Detected None Detected [facility] Comment: The fentanyl screen detects fentanyl at concentrations >2 ng/mL. A ? Presumptive Positive? result indicates that the screening result was positive but has not yet been confirmed by a highly-specific method. As with any screen, occasional false positive results from cross-reacting substances may occur. Not for Medico-Legal Purposes. Tricyclics Screen, Urine Presumptive Pos(A) None Detected [facility] Comment: The tricyclics screen detects tricyclic antidepressants at concentrations >150 ng/mL. Not all tricyclics cross-react equally with the antibody used in this screen. A ? Presumptive Positive? result indicates that the screening result was positive but has not yet been confirmed by a highly-specific method. As with any screen, occasional false positive results from cross-reacting substances may occur. Not for Medico-Legal Purposes. Ethanol Screen, Urine Positive(A) None Detected [facility] Comment:This urine ethanol a ssay detects ethanol at concentrations >/= 100 mg/L. Amphetamines Screen, Urine Presumptive Pos(A) None Detected [facility] Comment: The amphetamine screen detects d-amphetamine and d-methamphetamine at concentrations >300 ng/mL. A ? Presumptive Positive? result indicates that the screening result was positive but has not yet been confirmed by a highly-specific method. As with any screen, occasional false positive results from cross-reacting substances may occur. Not for Medico-Legal Purposes. Adulterants Screen, Urine None Detected None Detected [facility] Comment: No adulteration or dilution of this urine sample was detected. All urine samples submitted for urine drugs of abuse analysis are tested for creatinine concentration, pH, and for the presence of oxidants, nitrites, and chromate. Urine 01/06/2022 11:5 9 PM EDT 01/07/2022 12:53 AM EDT Narrative Resulting Agency Comment Spec In Lab Telma Cameron MD CHEMISTRY ORDERABLES Performing Organization Address [facility] Co de Phone Number [facility] [place] [address] * Rapid Drug Screen, Urine (NERISSA Request) (01/06/2022 11:59 PM EDT) Pathologist [facility] NERISSA Conf Requested No [facility] NERISSA Requested See Comment [facility] Comment:Refer to Rapid Drug Screen w/o Confirmation, Urine for results. Urine 01/06/2022 11:5 9 PM EDT 01/07/2022 12:53 AM EDT Narrative Resulting Agency Comment Spec In Lab Jose Juan Aparicio MD URINE ORDERABLES Performing Organization Address [facility] de Phone Number [facility] [place] [address] * COVID-19 PCR (01/06/2022 11:59 PM EDT) Pathologist [facility] SARS-CoV-2 RNA (Rapid) Not Detected Not Detected [facility] Comment: This result should be interpreted in combination with the clinical observations, patient history and epidemiological information. For testing of asymptomatic individuals, assay performance characteristics and clinical utility have not been evaluated. Testing for SARS-CoV-2 (Severe acute respiratory syndrome coronavirus 2, formerly known as 2019 novel coronavirus or 2019-nCoV) to aid in the diagnosis of COVID-19 is performed using the Simplexa COVID-19 Direct Assay by [employer] as authorized by the FDA issued Emergency Use Authorization (EUA). This assay is intended for In-vitro Diagnostic (IVD) use with nasopharyngeal swabs collected from individuals meeting the CDC criteria for testing. The assay is performed based on the instructions for use and additional guidance provided by the FDA. Testing is performed in the Microbiology Laboratory within the Department of Pathology and Laboratory Medicine at [facility], certified under the Clinical Laboratory Improvement Amendments of 1988 (CLIA), 42 U.S.C. section 263a, to perform high complexity tests. Assay performance has been verified according to clinical laboratory regulatory requirements. Test results are provided above. A result of Not Detected indicates that the viral RNA target is not present but does not preclude SARS-CoV-2 infection. False negative results may occur if a specimen is improperly collected, transported or handled; if amplification inhibitors are present; or if inadequate numbers of viral particles are present in the specimen. A result of Detected suggests a current or recent infection and the patient is presumed to be infected. Positive and negative predictive values for this test are highly dependent on disease prevalence. A result of Invalid indicates the inability to conclusively determine the presence or absence of SARS-CoV-2 RNA in the sample which can be due to a variety of factors. Recollection is recommended in the case of an invalid result. CDC COVID-19 criteria for testing on human specimens and clinical management guidance information are available at the CDC Coronavirus Disease 2019 (COVID-19) webpage under Information for Healthcare Professionals (https://www.cdc.gov/coronavirus/2019-ncov/hcp/index.html). Additional information about this and other EUA tests can be found in provider and patient fact sheets at the following FDA website: https://www.fda.gov/medical-devices/ytxyxtqavqn-tcjwphs-6429-atgrh-73-fytupwjcx- use-a qwwqwjdxmebve-gdhvsgs-fkjfruz/zasiy-ibksmchowqq-mhic SARS-CoV-2 Source [employer] Swab MA RY [facility] Nasopharyngeal Swab 01/07/20 11:59 PM EDT 01/07/2022 1:03 AM EDT Comment:Symptoms->Surveillan ce Narrative Resulting Agency Comment Spec In Lab Jose Juan Aparicio MD MICROBIOLOGY - GENER AL ORDERABLES [facility] [place] [address] * (ABNORMAL) BLOOD GAS 2 VENOUS (01/06/2022 11:44 PM EDT) pH, Venous 7.28(Criti desire) 7.32 - 7.42 [facility] PCO2, Venous 40(L) 41 - 51 mmHg [facility] PO2, Venous 40 25 - 40 mmHg [facility] Bicarbonate, Venous 18.5 mmol/L [facility] Base Excess, Venous -8.1 mmol/L [facility] Hgb Blood Gas 11.8 11.7 - 15.5 g/dL [facility] Oxyhemoglobin, Venous 71.4 % [facility] Carboxyhemoglob in, Venous 0.3 % [facility] Comment: Nonsmokers: 0.5-1.5% COHB Smokers: Variable, but usually less than 10% Toxic: 20-30% COHB Lethal: Greater than 60% COHB Methemoglobin, Venous 0.8 <=1.5 % [facility] Na Whole Blood 138 135 - 145 mmol/L [facility] K Whole Blood 4.0 3.5 - 5.0 mmol/L [facility] Comment: Please note: Patients with WBC >100,000 may have falsely elevated Potassium levels. Contact the Clinical Chemistry Laboratory if there are any questions. ICa Whole Blood 1.09(L) 1.15 - 1.33 mmol/L [facility] Comment: Note: ??Total bilirubin higher than 20 mg/dL may lead to falsely low ionized calcium. CL Whole Blood 108(H) 98 - 107 mmol/L [facility] Gluc Whole Bld 89 65 - 199 mg/dL [facility] Comment:Diabetes: >=200 mg/d L plus symptoms Lactate WB 3.7(H) 0.5 - 2.2 mmol/L [facility] Fraction of Inspired Oxygen, Venous 30 % [facility] Blood Gas Source Venous [facility] Blood 01/06/2022 11:4 4 PM EDT 01/06/2022 11:44 PM EDT Jose Juan Aparicio MD POINT OF CARE TEST O ANNIE [facility] [place] [address] documented in this encounter Visit Diagnoses Diagnosis Intentional overdose, initial encounter Chest pain, unspecified type Overdose Poisoning by unspecified drug or medicinal substance documented in this encounter Admitting Diagnoses Diagnosis Overdose Poisoning by unspecified drug or medicinal substance documented in this encounter Administered Medications Inactive Administered Medications - up to 3 most recent administrations Medication Order MAR Action Action Date Dose Rate Site acetaminophen (Tylenol) suppository 650 mg 650 mg, Rectal, EVERY 6 HOURS PRN, Starting on Tue01/10/22 at 1604, Until Tue01/12/22 at 1545, Fever, Maximum dose of acetaminophen is 4000 mg from all sources in 24 hours. When ordered for pain, acetaminophen should be given even when other ordered pain medications are indicated. , Routine Given 01/10/2022 4:30 PM EDT 650 mg acetaminophen (Tylenol) tablet 650 mg 650 mg, Per NG tube, EVERY 6 HOURS PRN, Starting on Tue01/11/22 at 1903, Until Tue01/12/22 at 1545, Pain, For Pain, Maximum dose of acetaminophen is 4000 mg from all sources in 24 hours. When ordered for pain, acetaminophen should be given even when other ordered pain medications are indicated. Cross check with rectal tylenol for to make sure appropriate timing, Routine Given 01/12/2022 6:52 AM EDT 650 mg Given 01/11/2022 7:12 PM EDT 650 mg acetaminophen (Tylenol) tablet 650 mg 650 mg, Per NG tube, EVERY 6 HOURS PRN, Starting on Tue01/12/22 at 1545, Until Tue01/18/22 at 1713, Pain, Fever, For Pain, Maximum dose of acetaminophen is 4000 mg from all sources in 24 hours. When ordered for pain, acetaminophen should be given even when other ordered pain medications are indicated. Cross check with rectal tylenol for to make sure appropriate timing, Routine Given 01/14/2022 11:0 2 AM EDT 650 mg Given 01/14/2022 1:30 AM EDT 650 mg Given 01/13/2022 12:24 AM EDT 650 mg acetylcysteine (Mucomyst) 200 mg/mL (20 %) inhalation Soln 600 mg 600 mg, Inhalation, EVERY 4 HOURS, First dose on Tue01/08/22 at 0800, Until Discontinued, Notify Respiratory Care for Medication Administration For 300 mg doses: remove 1.5 mL of acetylcysteine and mix with 1.5 mL sterile water for injection and administer via inhalation route per order. For 600 mg doses: remove 3 mL of acetylcysteine and mix with 3 mL sterile water for injection and administer via inhalation route per order. , Routine Given 01/13/2022 4:58 AM EDT 600 mg Given 01/13/2022 12:58 AM EDT 600 mg Given 01/12/2022 8:23 PM EDT 600 mg ampicillin-sulbactam (Unasyn) 1.5 g vial attach to sodium chloride 0.9% 50 mL Mini-Bag Plus 1.5 g, Intravenous, EVERY 6 HOURS, 12 doses, First dose on Tue01/07/22 at 1115, Last dose on Tue01/10/22 at 0515, Administer over 15 Minutes, Warning Vesicant/Irritant Medication , Indication for (Active or Suspected): Prophylaxis New Bag 01/08/2022 10:17 AM EDT 1.5 g 200 mL /hr New Bag 01/08/2022 5:14 AM EDT 1.5 g 200 mL/hr New Bag 01/07/2022 11:12 PM EDT 1.5 g 200 mL/hr ampicillin-sulbactam (Unasyn) 3 g vial attach to sodium chloride 0.9% 100 mL Mini-Bag Plus 3 g, Intravenous, EVERY 6 HOURS, 18 doses, First dose (after last modification) on Tue01/08/22 at 1715, Last dose on Tue01/12/22 at 2315, Administer over 15 Minutes, Warning Vesicant/Irritant Medication , Indication for (Active or Suspected): Prophylaxis New Bag 01/12/2022 11:21 PM EDT 3 g 400 mL /hr New Bag 01/12/2022 4:35 PM EDT 3 g 400 mL/hr New Bag 01/12/2022 11:05 AM EDT 3 g 400 mL/hr bisacodyL (Dulcolax) suppository 10 mg 10 mg, Rectal, DAILY, First dose on 01/11/22 at 1300, Until Discontinued, Routine Given 01/11/2022 3:53 PM EDT 10 mg bisacodyL (Dulcolax) suppository 10 mg 10 mg, Rectal, DAILY PRN, Starting on 01/12/22 at 0930, Until Tue01/18/22 at 1713, Constipation, Routine chlorhexidine (Peridex) 0.12 % oral solution 15 mL 15 mL, Oral, 2 TIMES DAILY, First dose on Velia 01/07/22 at 0230, Until Discontinued, Swab oral cavity. Ventilator-associated pneumonia prophylaxis, Routine Given 01/07/2022 9:14 AM EDT 15 mLs Given 01/07/2022 3:58 AM EDT 15 mLs dextrose 5% and lactated ringers infusion 125 mL/hr, Intravenous, CONTINUOUS, Starting on 01/09/22 at 1015, Until 01/10/22 at 1014 New Bag 01/10/2022 2:58 AM EDT 125 mL/hr 125 mL/hr Rate/Dose Verify 01/09/2022 9:00 PM EDT 125 mL/hr 125 mL/ hr Rate/Dose Verify 01/09/2022 8:00 PM EDT 125 mL/hr 125 mL/ hr enoxaparin (Lovenox) (30 mg/0.3 mL) subcutaneous injection 30 mg 30 mg, Subcutaneous, NIGHTLY, First dose (after last modification) on Velia 01/07/22 at 2100, Until Discontinued, Routine Given 01/17/2022 9:37 PM EDT 30 mg Given 01/16/2022 8:54 PM EDT 30 mg Given 01/15/2022 8:29 PM EDT 30 mg famotidine (Pepcid) tablet 20 mg 20 mg, Per NG tube, 2 TIMES DAILY, First dose on Velia 01/07/22 at 0045, Until Discontinued, Ok to crush, Routine Given 01/07/2022 9:00 AM EDT 20 mg Given 01/07/2022 12:19 AM EDT 20 mg fentaNYL (PF) (50 mcg/mL) injection 50 mcg 50 mcg, Intravenous, EVERY 1 HOUR PRN, 2 doses, Starting on Velia 01/07/22 at 0606, Until Tue01/07/22 at 2338, Pain, If medication ordered subcutaneously, do not administer more than 2 mL as a single injection., Routine Given 01/07/2022 11:38 PM EDT 50 mcg Given 01/07/2022 6:12 AM EDT 50 mcg fentaNYL (PF) (Sublimaze) 50 mcg/mL injection 1 dose, Starting on Tue01/07/22 at 0606, Until Tue01/07/22 at 0612, Joelle Dickey override furosemide (Lasix) (10 mg/mL) injection 20 mg 20 mg, Intravenous, ONCE, 1 dose, On Tue01/08/22 at 1200 Given 01/08/2022 11:42 AM EDT 20 mg furosemide (Lasix) (10 mg/mL) injection 20 mg 20 mg, Intravenous, ONCE, 1 dose, On Tue01/11/22 at 1645 Given 01/11/2022 4:22 PM EDT 20 mg furosemide (Lasix) (10 mg/mL) injection 20 mg 20 mg, Intravenous, ONCE, 1 dose, On Tue01/12/22 at 1015 Given 01/12/2022 10:41 AM EDT 20 mg furosemide (Lasix) (10 mg/mL) injection 20 mg 20 mg, Intravenous, ONCE, 1 dose, On Tue01/13/22 at 1215 Given 01/13/2022 12:09 PM EDT 20 mg furosemide (Lasix) (10 mg/mL) injection 20 mg 20 mg, Intravenous, ONCE, 1 dose, On Tue01/14/22 at 1145 Given 01/14/2022 11:02 AM EDT 20 mg furosemide (Lasix) tablet 40 mg 40 mg, Oral, ONCE, 1 dose, On Tue01/15/22 at 1130, Routine Given 01/15/2022 12:03 PM EDT 40 mg haloperidoL lactate (Haldol) (5 mg/mL) injection 2 mg 2 mg, Intravenous, ONCE, 1 dose, On Tue01/07/22 at 2245, If medication ordered subcutaneously, do not administer more than 3 mL as a single injection., Routine Given 01/07/2022 10:04 PM EDT 2 mg haloperidol lactate (Haldol) 5 mg/mL injection 1 dose, Starting on Tue01/07/22 at 2154, Until Tue01/07/22 at 2204, Emanuel Vazquez: cabinet override ipratropium-albuteroL (Duoneb) 0.5 mg-3 mg(2.5 mg base)/3 mL nebulizer solution 3 mL 3 mL, Nebulization, EVERY 4 HOURS PRN, Starting on Tue01/08/22 at 0723, Until Tue01/18/22 at 1713, Wheezing, and for mucomyst admin, Routine Given 01/09/2022 7:49 PM EDT 3 mLs Given 01/09/2022 3:44 PM EDT 3 mLs Given 01/09/2022 8:11 AM EDT 3 mLs lactated ringers infusion 250 mL/hr, Intravenous, CONTINUOUS, Starting on Tue01/07/22 at 1915, Until Tue01/07/22 at 2314 Rate/Dose Verify 01/07/2022 10:00 PM EDT 250 mL/hr 250 mL/hr Rate/Dose Verify 01/07/2022 8:00 PM EDT 250 mL/hr 250 mL/ hr New Bag 01/07/2022 6:47 PM EDT 250 mL/hr 250 mL/hr lactated ringers infusion 250 mL/hr, Intravenous, CONTINUOUS, Starting on Tue01/08/22 at 0115, Until Tue01/08/22 at 0559 New Bag 01/08/2022 4:30 AM EDT 250 mL/hr 250 mL/hr Rate/Dose Verify 01/08/2022 4:00 AM EDT 250 mL/hr 250 mL/ hr Rate/Dose Verify 01/08/2022 2:00 AM EDT 250 mL/hr 250 mL/ hr lidocaine (Lidoderm) 5% patch 3 patch 3 patch, Transdermal, EVERY 24 HOURS, First dose on Tue01/12/22 at 1645, Until Discontinued, Apply patch(es) for 12 hours, and then remove for 12 hours., Routine Patch Applied 01/15/2022 4:36 PM EDT 3 patches 07- Back Lower (Left) Patch Applied 01/14/2022 6:04 PM EDT 3 patches 07- Back Lower (Left) Patch Applied 01/13/2022 4:06 PM EDT 3 patches 08- Back Lower (Right) lidocaine (Lidoderm) topical patch REMOVAL Transdermal, EVERY 24 HOURS, First dose on Tue01/13/22 at 0345, Until Discontinued, Remove lidocaine 5% patch LORazepam (Ativan) (2 mg/mL) injection 0.5 mg 0.5 mg, Intravenous, ONCE PRN, 1 dose, Starting on Tue01/08/22 at 0212, Until Tue01/08/22 at 0348, agitation, Routine Given 01/08/2022 3:48 AM EDT 0.5 mg LORazepam (Ativan) (2 mg/mL) injection 0.5 mg 0.5 mg, Intravenous, ONCE, 1 dose, On Tue01/11/22 at 1115, For use immediately before brain MRI 01/11, Routine Given 01/11/2022 11:25 AM EDT 0.5 mg LORazepam (Ativan) (2 mg/mL) injection 0.5 mg 0.5 mg, Intravenous, EVERY 6 HOURS PRN, Starting on Tue01/15/22 at 0227, Until Tue01/18/22 at 1713, agitation, For agitation or nausea, Routine LORazepam (Ativan) (2 mg/mL) injection 0.5 mg 0.5 mg, Intravenous, ONCE PRN, 1 dose, Starting on Tue01/15/22 at 1719, Until Tue01/18/22 at 1713, prior to MRI, Routine LORazepam (Ativan) (2 mg/mL) injection 1 mg 1 mg, Intravenous, ONCE, 1 dose, On Velia 01/07/22 at 1430, Routine Given 01/07/2022 1:37 PM EDT 1 mg LORazepam (Ativan) (2 mg/mL) injection 1 mg 1 mg, Intravenous, ONCE, 1 dose, On Velia 01/07/22 at 1900, Routine Given 01/07/2022 7:54 PM EDT 1 mg LORazepam (Ativan) (2 mg/mL) injection 1 mg 1 mg, Intravenous, EVERY 2 HOURS PRN, Starting on Tue01/08/22 at 1038, Until Tue01/09/22 at 1444, Sedation, rigidity / serotonin syndrome, Routine Given 01/09/2022 6:56 AM EDT 1 mg Given 01/09/2022 12:19 AM EDT 1 mg Given 01/08/2022 2:41 PM EDT 1 mg LORazepam (Ativan) (2 mg/mL) injection 1 mg 1 mg, Intravenous, EVERY 6 HOURS PRN, Starting on 01/09/22 at 1445, Until Tue01/15/22 at 0227, agitation, For agitation or nausea, Routine Given 01/12/2022 11:17 PM EDT 1 mg Given 01/12/2022 1:33 PM EDT 1 mg Given 01/12/2022 6:52 AM EDT 1 mg LORazepam (Ativan) 2 mg/mL injection 1 dose, Starting on Tue01/07/22 at 1333, Until Tue01/07/22 at 1337, Butch Jorgensen: christianne overrchong magnesium sulfate 2 g in sterile water 50 mL infusion 2 g, Intravenous, ONCE, 1 dose, On Tue01/07/22 at 0245, Administer over 120 Minutes New Bag 01/07/2022 3:58 AM EDT 2 g 25 mL/hr magnesium sulfate 2 g in sterile water 50 mL infusion 2 g, Intravenous, ONCE, 1 dose, On [facility] 01/09/22 at 1015, Administer over 120 Minutes New Bag 01/09/2022 10:02 AM EDT 2 g 25 mL/hr melatonin tablet 3 mg 3 mg, Oral, NIGHTLY, First dose on Tue01/14/22 at 2100, Until Discontinued, Routine Given 01/17/2022 9:38 PM EDT 3 mg Given 01/16/2022 8:53 PM EDT 3 mg Given 01/15/2022 8:29 PM EDT 3 mg mirtazapine (Remeron) tablet 30 mg 30 mg, Oral, NIGHTLY, First dose on Tue01/14/22 at 2100, Until Discontinued, Routine Given 01/17/2022 9:38 PM EDT 30 mg Given 01/16/2022 8:54 PM EDT 30 mg Given 01/15/2022 8:28 PM EDT 30 mg NORepinephrine (Levophed) (16 mcg/mL) in dextrose 5% 250 mL infusion 0-100 mcg/min (0-375 mL/hr), Intravenous, CONTINUOUS, Starting on Tue01/07/22 at 0100, Until Tue01/08/22 at 1042, Titrate to keep MAP greater than 65 mmHg. Start at 2 mcg/min and increase by 2 mcg/min every 3 minutes until goal reached. Do not exceed 200 mcg/min. Warning Vesicant/Irritant Medication, Routine Rate/Dose Change 01/08/2022 12:46 AM EDT 2 mcg/min 7.5 mL/hr Rate/Dose Change 01/08/2022 12:35 AM EDT 4 mcg/min 15 mL/ hr Restarted 01/08/2022 12:32 AM EDT 2 mcg/min 7.5 mL/hr NORepinephrine (Levophed) 4 mg/250 mL (16 mcg/mL) infusion 1 dose, Starting on Tue01/06/22 at 2347, Until Tue01/06/22 at 2357, Joelle Dickey: cabinet override OLANZapine zydis (ZyPREXA) disintegrating tablet 2.5 mg 2.5 mg, Oral, NIGHTLY, First dose on Tue01/15/22 at 2100, Until Discontinued, Routine Given 01/17/2022 10:3 0 PM EDT 2.5 mg Given 01/16/2022 9:51 PM EDT 2.5 mg Given 01/15/2022 8:28 PM EDT 2.5 mg ondansetron (pf) (Zofran) (2 mg/mL) injection 4 mg 4 mg, Intravenous, ONCE, 1 dose, On Tue01/14/22 at 1745 Given 01/14/2022 5:04 PM EDT 4 mg ondansetron ODT (Zofran-ODT) disintegrating tablet 8 mg 8 mg, Oral, EVERY 8 HOURS PRN, Starting on Tue01/14/22 at 1059, Until Tue01/18/22 at 1713, Nausea, Routine Given 01/14/2022 7:38 PM EDT 8 mg Given 01/14/2022 11:07 AM EDT 8 mg polyethylene glycoL (Miralax) packet 17 g 17 g, Per NG tube, DAILY, First dose on Tue01/11/22 at 1300, Until Discontinued, Routine Given 01/16/2022 8:26 AM EDT 17 g Given 01/13/2022 8:29 AM EDT 17 g Given 01/11/2022 4:46 PM EDT 17 g potassium chloride 10 mEq in sterile water 100 mL infusion 10 mEq, Intravenous, EVERY 1 HOUR PRN, Starting on 01/09/22 at 0311, Until 01/16/22 at 0734, Administer over 60 Minutes, hypokalemia, Administer 2 times 10 meq/100 mL bags, each over 30-60 minutes for serum potassium (mMol/L) of 3.9 - 4 See instructions for Potassium Protocol in online policies. New Bag 01/09/2022 3:21 PM EDT 10 mEq 100 mL/h r New Bag 01/09/2022 2:17 PM EDT 10 mEq 100 mL/hr New Bag 01/09/2022 6:11 AM EDT 10 mEq 100 mL/hr potassium chloride 10 mEq in sterile water 100 mL infusion 10 mEq, Intravenous, EVERY 1 HOUR PRN, Starting on 01/09/22 at 0311, Until 01/16/22 at 0734, Administer over 60 Minutes, hypokalemia, Administer 4 times 10 meq/100 mL bags, each over 30-60 minutes for serum potassium (mMol/L) of 3.3 - 3.8 See instructions for Potassium Protocol in online policies. New Bag 01/10/2022 11:32 AM EDT 10 mEq 100 mL/hr New Bag 01/10/2022 10:23 AM EDT 10 mEq 100 mL/hr New Bag 01/10/2022 9:26 AM EDT 10 mEq 100 mL/hr potassium chloride 10 mEq in sterile water 100 mL infusion 10 mEq, Intravenous, EVERY 1 HOUR PRN, Starting on 01/09/22 at 0311, Until 01/16/22 at 0734, Administer over 60 Minutes, hypokalemia, Administer Administer 6 times 10 meq/100 mL bags, each over 30-60 minutes for serum potassium (mMol/L) of 2.8 - 3.2 See instructions for Potassium Protocol in online policies. New Bag 01/16/2022 6:49 AM EDT 10 mEq 100 mL/h r New Bag 01/12/2022 8:20 AM EDT 10 mEq 100 mL/hr New Bag 01/12/2022 6:41 AM EDT 10 mEq 100 mL/hr potassium chloride ER (K-Dur/Klor-Con) tablet 20 mEq 20 mEq, Oral, ONCE, 1 dose, On 01/16/22 at 0830, Please dissolve 20 mEq tablet in water for administration, Routine Given 01/16/2022 8:24 AM EDT 20 mEq potassium chloride ER (K-Dur/Klor-Con) tablet 40 mEq 40 mEq, Oral, ONCE, 1 dose, On Tue01/12/22 at 0815, 20 mEq tablet may be dissolved in water for administration, Routine Given 01/12/2022 8:21 AM EDT 40 mEq potassium chloride ER (K-Dur/Klor-Con) tablet 40 mEq 40 mEq, Oral, ONCE, 1 dose, On Tue01/12/22 at 2030, 20 mEq tablet may be dissolved in water for administration, Routine Given 01/12/2022 8:32 PM EDT 40 mEq potassium, sodium phosphates (Neutra-Phos) 280-160-250 mg oral packet 1.5 g 1.5 g, Oral, 4 TIMES DAILY, 4 doses, First dose on Tue01/13/22 at 1300, Last dose on Tue01/14/22 at 0900, Take with full glass of water, Routine Given 01/14/2022 8:03 AM EDT 1.5 g Given 01/13/2022 9:59 PM EDT 1.5 g Given 01/13/2022 4:06 PM EDT 1.5 g propofoL (Diprivan) (10 mg/mL) bolus from infusion 10 mg 10 mg, Intravenous, EVERY 10 MIN PRN, Starting on Velia 01/07/22 at 0030, Until Tue01/07/22 at 2021, SAT resedation, Administer bolus dose of propofol of 10 mg. Propofol bolus may be repeated for an additional 10 mg. Wait 5 to 10 minutes to see onset effect from 1st bolus. Do not administer more than 20 mg in a 4 hour period., Routine Bolus from Infusion 01/07/2022 6:03 AM EDT 10 mg Bolus from Infusion 01/07/2022 2:00 AM EDT 10 mg propofoL (Diprivan) (10 mg/mL) infusion 0-50 mcg/kg/min ? 46.8 kg (0-14.04 mL/hr, rounded to 0-14 mL/hr), Intravenous, CONTINUOUS, Starting on Velia 01/07/22 at 0130, Until Tue01/07/22 at 2021, Titrate to sedation level of RASS Goal (-)1 to 0 . Start at 20 mcg/kg/min, adjust rate by 10 mcg/kg/min every 3 minutes. Once stable, reassess patient every 30 minutes. Rate not to exceed 50 mcg/kg/minute. Change rate only after assessing and documenting RASS. Reassess sedation scores within 30 minutes after every rate change. If under sedated, increase rate by 10 mcg/kg/min. If over sedated, hold sedative until target RASS (-)1 to 0 achieved and then restart at 50% of previous rate. Call house wirer if goal not achieved at maximum rate. If SAT is ordered and if patient meets criteria for Spontaneous Awakening Trial, titrate per protocol., Routine Rate/Dose Change 01/07/2022 9:15 AM EDT 5 mcg/kg/min 1.4 mL/hr Rate/Dose Change 01/07/2022 8:55 AM EDT 10 mcg/kg/min 2.8 mL/hr Rate/Dose Change 01/07/2022 8:40 AM EDT 15 mcg/kg/min 4.2 mL/hr propofoL (Diprivan) 10 mg/mL infusion 1 dose, Starting on Tue01/06/22 at 2326, Until Tue01/06/22 at 2357, Emanuel Vazquez: cabinet override sodium chloride (NebuSal) 3 % nebulizer solution 4 mL 4 mL, Nebulization, EVERY 6 HOURS WHILE AWAKE, First dose (after last reorder) on Tue01/08/22 at 1400, Until Discontinued, Routine Given 01/16/2022 8:20 PM EDT 4 mLs Given 01/16/2022 1:11 PM EDT 4 mLs Given 01/16/2022 8:25 AM EDT 4 mLs tube feeding diet 960 mL, Per NG tube, at 48 mL/hr, CONTINUOUS, Starting on Tue01/11/22 at 1630, Until Tue01/18/22 at 1713, Administer flushes and check residuals per policy, Which tube feed product? Promote, Strength: FULL Strength, Initial Rate: (mL/hr): 10, Advance by: (mL): 10, Advance every: Q8H, Goal final rate: (mL/hr): 48 Rate/Dose Verify 01/14/2022 12:00 AM EDT 48 mL/hr Rate/Dose Verify 01/13/2022 6:00 AM EDT 48 mL/h r Rate/Dose Verify 01/13/2022 4:00 AM EDT 48 mL/h r documented in this encounter Active and Recently Administered Medications Times are shown in EDT. Scheduled Medication Order 01/16/2022 01/17/2022 01/18/2022 enoxaparin (Lovenox) (30 mg/0.3 mL) subcutaneous injection 30 mg 30 mg, Subcutaneous, NIGHTLY, First dose (after last modification) on Tue01/07/22 at 2100, Until Discontinued, Routine 2053 (Given - Provider: Cory Hernandez RN) 2136 (Given - Provider: Cory Hernandez, RN) lidocaine (Lidoderm) 5% patch 3 patch(Linked Group 1) 3 patch, Transdermal, EVERY 24 HOURS, First dose on Tue01/12/22 at 1645, Until Discontinued, Apply patch(es) for 12 hours, and then remove for 12 hours., Routine 1645 (Not Given - Provider: Caleb Culp RN - Reason: Patient/family refused) 1645 (Not Given - Provider: Joelle Serrano RN - Reason: Patient/family refused) 1645 (Not Given - Provider: Graciela Gonzáles RN - Reason: Patient/family refused) lidocaine (Lidoderm) topical patch REMOVAL(Linked Group 1) Transdermal, EVERY 24 HOURS, First dose on Tue01/13/22 at 0345, Until Discontinued, Remove lidocaine 5% patch 0345 (Patch Not Removed (add comment) - Provider: Cory Hernandez RN) 0345 (Patch Not Removed (add comment) - Provider: Cory Hernandez RN - Comment: Patch not present) 0345 (Patch Not Removed (add comment) - Provider: Cory Hernandez RN - Comment: patch not on pt) melatonin tablet 3 mg 3 mg, Oral, NIGHTLY, First dose on Tue01/14/22 at 2100, Until Discontinued, Routine 2052 (Given - Provider: Cory Hernandez, RN) 2137 (Given - Provider: Cory Hernandez, RN) mirtazapine (Remeron) tablet 30 mg 30 mg, Oral, NIGHTLY, First dose on Tue01/14/22 at 2100, Until Discontinued, Routine 2054 (Given - Provider: Cory Hernandez, RN) 2137 (Given - Provider: Cory Hernandez, RN) OLANZapine zydis (ZyPREXA) disintegrating tablet 2.5 mg 2.5 mg, Oral, NIGHTLY, First dose on Tue01/15/22 at 2100, Until Discontinued, Routine 2150 (Given - Provider: Cory Hernandez, RN) 2229 (Given - Provider: Cory Hernandez, RN) polyethylene glycoL (Miralax) packet 17 g 17 g, Per NG tube, DAILY, First dose on Tue01/11/22 at 1300, Until Discontinued, Routine 08 (Given - Provider: Caleb Culp, MAHI) 0900 (Not Given - Provider: Joelle Serrano RN - Reason: Patient/family refused) 0900 (Not Given - Provider: Graciela Gonzáles RN - Reason: Patient/family refused) potassium chloride ER (K-Dur/Klor-Con) tablet 20 mEq (COMPLETED) 20 mEq, Oral, ONCE, 1 dose, On Tue01/16/22 at 0830, Please dissolve 20 mEq tablet in water for administration, Routine 08 (Given - Provider: Caleb Culp RN) sodium chloride (NebuSal) 3 % nebulizer solution 4 mL 4 mL, Nebulization, EVERY 6 HOURS WHILE AWAKE, First dose (after last reorder) on Tue01/08/22 at 1400, Until Discontinued, Routine 08 (Given - Provider: Dora Pinzon RCP)131 (Given - Provider: Dora Pinzon RCP)2019 (Given - Provider: Kirsten Tillman, RT) 0800 (Not Given - Provider: Joelle Serrano RN - Reason: Patient/family refused)1400 (Not Given - Provider: Joelle Serrano RN - Reason: Patient/family refused)1999 (Not Given - Provider: Radha Bose RCP - Reason: Patient/family refused) 0800 (Not Given - Provider: Graciela Gonzáles RN - Reason: Patient/family refused)1400 (Not Given - Provider: Graciela Gonzáles RN - Reason: Order parameters not met) Continuous Medication Order 01/16/2022 01/17/2022 01/18/2022 tube feeding diet 960 mL, Per NG tube, at 48 mL/hr, CONTINUOUS, Starting on Tue01/11/22 at 1630, Until Tue01/18/22 at 1713, Administer flushes and check residuals per policy, Which tube feed product? Promote, Strength: FULL Strength, Initial Rate: (mL/hr): 10, Advance by: (mL): 10, Advance every: Q8H, Goal final rate: (mL/hr): 48 PRN Medication Order 01/16/2022 01/17/2022 01/18/2022 acetaminophen (Tylenol) tablet 650 mg 650 mg, Per NG tube, EVERY 6 HOURS PRN, Starting on Tue01/12/22 at 1545, Until Tue01/18/22 at 1713, Pain, Fever, For Pain, Maximum dose of acetaminophen is 4000 mg from all sources in 24 hours. When ordered for pain, acetaminophen should be given even when other ordered pain medications are indicated. Cross check with rectal tylenol for to make sure appropriate timing, Routine bisacodyL (Dulcolax) suppository 10 mg 10 mg, Rectal, DAILY PRN, Starting on Tue01/12/22 at 0930, Until Tue01/18/22 at 1713, Constipation, Routine ipratropium-albuteroL (Duoneb) 0.5 mg-3 mg(2.5 mg base)/3 mL nebulizer solution 3 mL 3 mL, Nebulization, EVERY 4 HOURS PRN, Starting on Tue01/08/22 at 0723, Until Tue01/18/22 at 1713, Wheezing, and for mucomyst admin, Routine LORazepam (Ativan) (2 mg/mL) injection 0.5 mg 0.5 mg, Intravenous, EVERY 6 HOURS PRN, Starting on Tue01/15/22 at 0227, Until Tue01/18/22 at 1713, agitation, For agitation or nausea, Routine LORazepam (Ativan) (2 mg/mL) injection 0.5 mg 0.5 mg, Intravenous, ONCE PRN, 1 dose, Starting on Tue01/15/22 at 1719, Until Tue01/18/22 at 1713, prior to MRI, Routine ondansetron ODT (Zofran-ODT) disintegrating tablet 8 mg 8 mg, Oral, EVERY 8 HOURS PRN, Starting on Tue01/14/22 at 1059, Until 01/18/22 at 1713, Nausea, Routine potassium chloride 10 mEq in sterile water 100 mL infusion (CANCELED)(Linked Group 2) 10 mEq, Intravenous, EVERY 1 HOUR PRN, Starting on 01/09/22 at 0311, Until 01/16/22 at 0734, Administer over 60 Minutes, hypokalemia, Administer Administer 6 times 10 meq/100 mL bags, each over 30-60 minutes for serum potassium (mMol/L) of 2.8 - 3.2 See instructions for Potassium Protocol in online policies. 0649 (New Bag - Provider: Cory Hernandez RN)0734 (Stopped - Provider: Caleb Culp RN - Comment: Time automatically adjusted from order being discontinued) Linked Groups Order Group 1: lidocaine (Lidoderm) 5% patch 3 patchJump to med 3 patch, Transdermal, EVERY 24 HOURS, First dose on Tue01/12/22 at 1645, Until Discontinued, Apply patch(es) for 12 hours, and then remove for 12 hours., Routine And lidocaine (Lidoderm) topical patch REMOVALJump to med Transdermal, EVERY 24 HOURS, First dose on Tue01/13/22 at 0345, Until Discontinued, Remove lidocaine 5% patch Group 2: potassium chloride 10 mEq in sterile water 100 mL infusion (CANCELED) 10 mEq, Intravenous, EVERY 1 HOUR PRN, Starting on 01/09/22 at 0311, Until 01/16/22 at 0734, Administer over 60 Minutes, hypokalemia, Administer 2 times 10 meq/100 mL bags, each over 30-60 minutes for serum potassium (mMol/L) of 3.9 - 4 See instructions for Potassium Protocol in online policies. Or potassium chloride 10 mEq in sterile water 100 mL infusion (CANCELED) 10 mEq, Intravenous, EVERY 1 HOUR PRN, Starting on 01/09/22 at 0311, Until 01/16/22 at 0734, Administer over 60 Minutes, hypokalemia, Administer 4 times 10 meq/100 mL bags, each over 30-60 minutes for serum potassium (mMol/L) of 3.3 - 3.8 See instructions for Potassium Protocol in online policies. Or potassium chloride 10 mEq in sterile water 100 mL infusion (CANCELED)Jump to med 10 mEq, Intravenous, EVERY 1 HOUR PRN, Starting on 01/09/22 at 0311, Until 01/16/22 at 0734, Administer over 60 Minutes, hypokalemia, Administer Administer 6 times 10 meq/100 mL bags, each over 30-60 minutes for serum potassium (mMol/L) of 2.8 - 3.2 See instructions for Potassium Protocol in online policies. 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
--- OUTSIDE RECORDS SUMMARY | 2024-04-12 11:18 | XMS_ITS | Encounter Summary ---
[place] [address] Care Team Providers Care Performance Test Consultant Name Role Phone ProsperKristen MATHEUS Primary Care Provider [phone] Encounter Details Date Type Department Care Team (Late st Contact Info) Description 04/06/2019 Refill Dermatology at [facility] [address] [place] [address] Edwar Seymour MD [address] [facility] [place] [address] Alopecia Social History Tobacco Use Types Packs/Day [...] encounter Miscellaneous Notes * Telephone Encounter - Elissa Jimenez R - 04/09/2019 10:16 AM EDT Patient contacted the clinic today requesting a refill for the spironolactone (ALDACTONE) 50 mg Tablet last prescribed on 02/27/19. I contacted the pharmacy and there is a refill waiting to be picked-up but it is the last of the refills for the medication. I did call patient back to let her know that a her refill is at the pharmacy waiting to be picked up. Last visit instructions were to return to clinic in August for follow and patient does have a follow up scheduled 06/[address] Seymour as well. Please send refill to [facility] [place], [place]. Patient can be reached at [phone] w/ any questions or concerns. * Telephone Encounter - Vianey Fletcher - 04/06/2019 5:00 PM EDT Patient reached out and requested a refill of her spironolactone (ALDACTONE) 50 mg Tablet script. She requested that it be sent to [facility] in [place], [place]. The best number to reach her is [phone]. Vianey Fletcher, Clinical [place] documented in this encounter Plan of Treatment Not on file documented as of this encounter Visit Diagnoses Diagnosis Alopecia Alopecia, unspecified documented in this encounter Care Teams Performance Test Consultant Relationship Specialty Start Date End Date Kristen Cheng APRN [address] [place] [address] PCP - General Family Medicine 01/17/19 12/13/21 documented as of this encounter
--- OUTSIDE RECORDS SUMMARY | 2024-04-12 11:18 | XMS_ITS | Encounter Summary ---
[place] [address] Care Team Providers Care Cable Worker Helper Name Role Phone Kristen Cheng APRN Primary Care Provider [phone] Encounter Details Date Type Department Care Team (Late st Contact Info) Description 2019 Telephone Dermatology at [facility] [address] [place] [address] Edwar Seymour MD [address] [facility] [place] [address] Social History Tobacco Use Types Packs/Day Years [...] Telephone Encounter - Ovidio Sigala LNA - 2019 1:11 PM EDT Left message with my direct call back number . Will give Ms. Spain my email so she can send pictures of scalp area for . ( patient does not have [facility]) documented in this encounter Plan of Treatment Not on file documented as of this encounter Visit Diagnoses Not on filedocumented in this encounter Care Teams Cable Worker Helper Relationship Specialty Start Date End Date Kristen Cheng APRN [address] [facility] [place] [address] PCP - General Family Medicine 01/17/19 12/13/21 documented as of this encounter
--- OUTSIDE RECORDS SUMMARY | 2024-04-12 11:18 | XMS_ITS | Encounter Summary ---
[place] [address] Care Team Providers Care Card Puncher Name Role Phone ProsperKristen MATHEUS Primary Care Provider [phone] Encounter Details Date Type Department Care Team (Late st Contact Info) Description 01/17/2019 1:45 PM EDT Office Visit Dermatology at [facility] [address] [place] [address] Edwar Seymour MD [address] [facility] [address] Alopecia; Scalp pruritus Social History Tobacco Use Types Packs/Day Years [...] Progress Notes * Edwar Seymour MD - 01/17/2019 1:45 PM EDT Images from the original note were not included. DERMATOLOGY [place], [place] NEW PATIENT Chief Complaint: Hair loss History of Present Illness Aziza Tamez is a 58 y.o. female. Complains of hair loss that was first identified 8 months ago. Never been treated or biopsied. She reports associated burning, tightness, and itchiness, which she rates as 9/10, though the severity fluctuates. Prior to onset, she sustained severe sunburn to the area. She notes worsening of symptomswith exposure to sunlight and wearing hats. Since onset, she has noted decreased density and more hair in the shower drain. She denies associated scaling. She reports history of eczema with involvement of the scalp, but reports that her current symptoms are different from typical flare. She is currently on gabapentin for depression, which has not improved any of her symptoms. She notes additionalstressors. She is unsure of family history of androgenetic alopecia as she lived in foster care. She reports history of anemia and anorexia, but denies any history of hypothyroidism. Review of Systems Significant for no pertinent and acute changes in constitutional, other skin, GI, respiratory systems upon specific queries. Skin Cancer History No personal history of skin cancer. No family history of skin cancer. Allergies Medications Latex; Sulfa (sulfonamide antibiotics); Trazodone; and Lactose intolerance [lactase] has a current medication list which includes the following prescription(s): vilazodone, buspirone, lamotrigine, UNABLE TO FIND, loratadine, docusate sodium, hydroxyzine, sumatriptan, rizatriptan, buspirone, and mirtazapine, and the following Facility-Administered Medications: lactated ringers. 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 Well developed, well-nourished in no apparent distress, alert and oriented to time, person, place and situation. Skin Type: II. Focused skin examination of the scalp, face, ears, hands, including nail plates, significant for the following: ?? Hypodensity of hair on the superior and crown of scalp. Normal density of the parietal and lowerparietal scalp. No dermatitis, erosion, or crust. Well- demarcated alopecia on the scalp, ears, and face. Negative hair pull test (10/29). No nail pitting. No significant dermatitis on the hands. Assessment and Plan Alopecia with Pruritus DDx: Telogen effluvium vs androgenetic alopecia Counseled: alopecia areata, autoimmune disease sometimes triggered by stress and a/w other autoimmune disorders, chronic and recurrent, and management with topical +/- IL steroids, topical minoxidil,topical clobetasol, finasteride. Handout given on hair loss. Answered all questions. ?? Start Rx clobetasol solution apply topically to the scalp bid for 3w of month. Counseled: risks of topical steroids, including but not limited to atrophy, dyspigmentation. ?? Recommended Rogaine 5% foam to the scalp ?? Labs today: CBC, Fe TIBC, TSH, ASHA Follow-up: in 6 weeks for alopecia follow-up or sooner as needed for worsening or new dermatitis. Note initiated by Renetta Wise [facility] Gio Bishop has performed the documentation for this encounter in the presence of and acting as a scribe for Dr. Seymour. I performed the above scribed service and agree with the accuracy of the documentation in this encounter. Edwar Seymour MD FAAD Section of Dermatology [facility] * Edwar Seymour MD - 01/17/2019 1:45 PM EDT CBC normal. ASHA negative. Thyroid function normal. Iron studies slightly abnormal but not to the degree expected for anemia or hair loss. Recommend trial of topical as recommended and follow-up * Vianey Dickey - 01/17/2019 1:45 PM EDT Left voicemail for patient to call back. * Vianey Dickey - 01/17/2019 1:45 PM EDT Spoke to patient regarding lab results. Patient understood and had no questions. She will continue to use the recommended topicals and follow-up visit scheduled for 02/20/2019. documented in this encounter Plan of Treatment Not on file documented as of this encounter Procedures Procedure Name Priority Date/Time Associated Diagnosis Comments HEMOGRAM Routine 01/17/2019 2:53 PM EDT Alopecia DIFFERENTIAL, AUTOMATED Routine 01/17/2019 2:53 PM EDT Alopecia IRON AND TIBC Routine 01/17/2019 2:53 PM EDT Alopecia CBC (WITH DIFF) Routine 01/17/2019 2:53 PM EDT Alopecia ASHA ANTIBODY SCREEN Routine 01/17/2019 2 :53 PM EDT Alopecia TSH Routine 01/17/2019 2:53 PM EDT Alopecia documented in this encounter Results * Differential, Automated (01/17/2019 2:53 PM EDT) Neutrophil % 60.9 % [facility] Neutrophil Absolute 3.53 1.70 - 6.10 x10(3)/[facility] Lymph % 31.0 % [facility] Lymphocytes Abs 1.8 0.9 - 3.2 x10(3)/[facility] Monocyte % 6.6 % [facility] Monocyte Abs 0.4 0.3 - 0.9 x10(3)/[facility] Eos % 0.5 % [facility] Eosinophils Abs 0.0 0.0 - 0.4 x10(3)/[facility] Basophil % 0.7 % [facility] Baso Absolute 0.0 0.0 - 0.1 x10(3)/[facility] Immature Gran % 0.30 % [facility] Comment: Immature granulocytes(IG's)percentage and absolute count will include metamyelocytes, myelocytes, and promyelocytes. Blood smears from CBCs yielding IG's will be scanned manually for concordance. If this scan disagrees with the automated IG or if promyelocytes are noted, a manual differential will be performed. Immature Gran Absolute 0.02 0.00 - 0.04 x10(3)/[facility] Blood specimen (specimen) 01/17/2019 2:53 PM EDT 01/17/2019 4:27 PM EDT Narrative Resulting Agency Comment Spec In Lab Edwar Seymour MD HEMATOLOGY ORDERABLE S [facility] [place] [address] * (ABNORMAL) Hemogram (01/17/2019 2:53 PM EDT) White Blood Cell 5.8 4.0 - 9.5 x10(3)/[facility] Red Blood Cell 4.24 4.00 - 5.21 x10(6)/[facility] Hemoglobin 13.5 11.7 - 15.5 gm/dL [facility] Hematocrit 41.9 35.7 - 45.8 % [facility] Mean Cell Volume 98.8(H) 82.6 - 94.4 fL [facility] Mean Cell Hemoglobin 31.8 27.1 - 32.0 pg [facility] Mean Cell Hemoglobin Concentration 32.2 31.7 - 35.0 gm/dL [facility] Platelet 247 145 - 357 x10(3)/[facility] RDW Standard Deviation 44.4 37.0 - 46.0 [facility] RDW coefficient of variation 12.1 11.5 - 14.1 % [facility] Mean Platelet Volume 10.8 7.6 - 12.9 fL [facility] NRBC% auto 0.0 % [facility] NRBC Absolute 0.000 0.000 - 0.000 x10(3)/[facility] Blood specimen (specimen) 01/17/2019 2:53 PM EDT 01/17/2019 4:27 PM EDT Narrative Resulting Agency Comment Spec In Lab Edwar Seymour MD HEMATOLOGY ORDERABLE S [facility] [place] [address] * ASHA (LEB/CGP) (01/17/2019 2:53 PM EDT) ASHA Neg Neg [facility] Blood specimen (specimen) 01/17/2019 2:53 PM EDT 01/18/2019 7:36 AM EDT Narrative Resulting Agency Comment Spec In Lab Edawr Seymour MD LAB SEND OUT ORDERAB LES Performing Organization Address City/[facility]/ZIP Co de Phone Number [facility] [place] [address] * (ABNORMAL) Iron and TIBC (01/17/2019 2:53 PM EDT) Iron 49 30 - 150 mcg/dL [facility] TIBC 324 250 - 450 mcg/dL [facility] Iron Saturation 15(L) 20 - 50 % [facility] Blood specimen (specimen) 01/17/2019 2:53 PM EDT 01/17/2019 4:33 PM EDT Narrative Resulting Agency Comment Spec In Lab Edwar Seymour MD CHEMISTRY ORDERABLES Performing Organization Address City/[facility]/ZIP Co de Phone Number [facility] [place] [address] * TSH (01/17/2019 2:53 PM EDT) Thyroid Stimulating Hormone 1.94 0.27 - 4.20 mcIU/mL [facility] Blood specimen (specimen) 01/17/2019 2:53 PM EDT 01/17/2019 4:33 PM EDT Narrative Resulting Agency Comment Spec In Lab Edwar Seymour MD CHEMISTRY ORDERABLES Performing Organization Address City/[facility]/ZIP Co de Phone Number [facility] [place] [address] documented in this encounter Visit Diagnoses Diagnosis Alopecia Alopecia, unspecified Scalp pruritus Unspecified pruritic disorder documented in this encounter Care Teams Card Puncher Relationship Specialty Start Date End Date Kristen Cheng, MATHEUS [address] [place] [address] PCP - General Family Medicine 01/17/19 12/13/21 documented as of this encounter
--- OUTSIDE RECORDS SUMMARY | 2024-04-12 11:18 | XMS_ITS | Encounter Summary ---
Author Organization [facility] [place] [address] Care Team Providers Care Rabies Inspector Name Role Phone Kristen Cheng APRN Primary Care Provider [phone] Reason for Referral * Physical Therapy (Routine) - Closed Specialty Diagnoses / Procedures Referred By Contac t Referred To Contact Physical Therapy Diagnoses Neck pain Cathy Silva APRN [facility] [place] [address] Physical Therapy, [place] [address] [place] [id number] Referral ID Status Reason Start Date Expiration Date V isits Requested Visits Authorized [id number] Closed Evaluate and Treat 11/20/2021 05/19/2022 12 12 Reason for Visit * Consultation (Routine) - Closed Specialty Diagnoses / Procedures Referred By Contac t Referred To Contact Neurology Diagnoses Migraine, unspecified, not intractable, without status migrainosus Sirena Obrien APRN [address] [place] [address] [facility] Neurology [address] [place] [address] Referral ID Status Reason Start Date Expiration Date V isits Requested Visits Authorized [id number] Closed Evaluate and Treat 07/08/2021 07/08/2022 1 1 Encounter Details Date Type Department Care Team (Late st Contact Info) Description 11/20/2021 10:30 AM EDT Office Visit Neurology at [facility] [address] [place] [address] Cathy Silva APRN [facility] [place] [address] Migraine without aura and without status migrainosus, not intractable; Neck pain Social History Tobacco Use Types Packs/Day Years [...] Sign Reading Time Taken Comments Blood Pressure 122/73 11/20/2021 10:08 AM EDT Pulse 67 11/20/2021 10:08 AM EDT Temperature - - Respiratory Rate - - Oxygen Saturation - - Inhaled Oxygen Concentration - - Weight 44.5 kg (98 lb) 11/20/2021 10:08 AM EDT Height - - Body Mass Index 15.58 03/15/2018 9:21 AM EDT documented in this encounter Progress Notes * Cathy Silva APRN - 11/20/2021 10:30 AM EDT Neurology Headache Clinic Initial Consultation Patient name: Aziza Tamez Date of : 1960 PCP: Kristen Cheng APRN CC: Headache I have been asked to see Aziza Tamez in consultation by Kristen Cheng for their c/o Headaches in my capacity as Headache Medicine Specialist. HPI: Aziza Tamez is a 61 y.o. right handed female with a history of headaches since middle school . They have a PMH of anxiety, depression and eating disorder, IBS and migraine. From Initial Consultation in 2018: Aziza Tamez is a 57 y.o. right-handed female with a long history of headaches that startedaround menarche. Menarche occurred at the age of 9-/1. These were more manageable headaches and as [...] tried: sumatriptan No h/orenal stones Interval History: Connected with a neurologist in [facility]. Tried several migraine meds. Over the Last 10 months migraines increased to 2 per week. Retired 2 years ago Starts in base of skull and travels up over her head and over the face. Feels as though whole head and face is swollen. Bilateral finger tips tingling only with headache. Migraines will last all day.Some are waking her at night. Tried nurtec--no work Eletriptan-no work Rizatriptan-no work Had Covid 2 months ago. Does not drink Coffee any more Hydrates well with water and other beverages. Migraine Disability Assessment # of days in the past 3 months 1. Missed work / school because of LUX 0 2. Productivity at work / school reduced by > half because of LUX (do not count days from Q.1) 0 3. Did not do housework because of LUX 15 4. Productivity in household work reduced by > half because of LUX (do not count days from Q.3) 3 5. Missed family / social / leisure activities because of LUX 10 Total 28 MIDAS grade (use total of Q1 to 5) I: 0-5, little to no disability II: 6-10, mild disability III: 11-20, moderate disability IV: 21+, severe disability A. # of days in the last 3 months with a LUX (count each day if LUX lasted > 1 day) 18 B. Average LUX intensity (0-10) 8 MIDAS Responses 11/18/2021 Days missed school/work 0 Days productivity at work/school reduced 0 Days did not do household work 15 Days productivity related to housework reduced 18 Days missed family, social or leisure activities 10 Days had headache 18 Pain scale 8 MIDAS Score 43 (MIDAS grade IV, severe disability) MIDAS Adjusted Score 43 Medications tried: Reduction/Prevention: Monoclonal Antibodies: None GEPANTS: [...] Outpatient Medications Medication Sig Dispense Refill ??? LORazepam (Ativan) 1 mg Tablet ??? cholecalciferol, Vitamin D3, 125 mcg (5,000 unit) Tablet Take 5,000 Units by mouth daily. ??? b complex vitamins Capsule Take 1 capsule by mouth daily. ??? Acetylcysteine (NAC) 600 mg Capsule Take by mouth. ??? spironolactone (ALDACTONE) 50 mg Tablet TAKE THREE TABLETS BY MOUTH EVERY DAY 180 tablet 3 ??? vilazodone (Viibryd) 40 mg Tablet Take [...] No current facility-administered medications for this visit. Facility-Administered Medications Ordered in Other Visits Medication Dose Route Frequency Provider Last Rate Last Admin ??? lactated ringers infusion Continuous PRN Kasey Ames MD New Bag at 12/11/13 0805 Allergy: Allergies Allergen Reactions ??? Latex Hives ??? Sulfa (Sulfonamide Antibiotics) Hives ??? Trazodone Other (See Comments) headache ??? Lactose Intolerance [Lactase] Diarrhea Physical Exam: Patient Vitals for the past 24 hrs: Pulse BP 11/20/21 1008 67 122/73 44.5 kg (98 lb) Constitutional: Well developed, Well groomed, NAD HEENT: oral mucosa moist, no thrush, no carotid bruits, no thyromegaly, no lymphadenopathy Neck: Decreased AROM of the head and neck with increased paracervical and upper trapezius muscle tone Heart: RRR S1S2 no murmur Ext: no edema, adequate pulses Neuro exam: MSE: alert, oriented to person, place, time, situation, follows simple and complex commands, speechfluent with no dysarthria, able to repeat a sentence, names objects. CN: PERRL, no nystagmus, EOMI, visual tirado intact to confrontation, facial sensation intact, no facial droop or asymmetry, tongue protrudes midline, uvula and palate elevate symmetrically, trap symmetric strength bilaterally Fundoscopic examination: crisp optic cups, no AV nicking, venous pulsations b/l Motor: RUE 5/5 throughout LUE 5/5 throughout RLE 5/5 throughout LLE 5/5 throughout Normal bulk and tone No pronator drift Reflexes 2+ bilat biceps, brachioradialis, triceps 2+ bilat patella, achilles downgoing toes bilaterally Sensation: intact light touch, vibration, proprioception, and temperature diffusely Coordination: intact finger nose finger and WES, no dysmetria, no tremor Gait: normal stride and arm swing, able to perform heel, toe walk and tandem gait. Negative romberg. Diagnostic Tests and Imaging: MRI of Brain wwo Contrast MRV of Brain MRA of Brain CT of Brain LABS: TSH Free T4 B12 Vit D ESR Assessment and plan: Aziza Tamez is a 61 y.o. right handed female with a history of headache since middle school. They have a PMH of anxiety, depression and eating disorder, IBS and migraine. Migraine without aura: She does not recall the medication that she has been on previously. We will hold off on preventive medication at the time and see what physical therapy does for her to address her neck muscle issues.She will find out what medications was prescribed for her and we will reconsider at follow-up. Neck Pain: I will send her to physical therapy in her local area. I think that her neck muscle spasm and neck pain are contributing to her overall headache profile. I will see the patient in 3month in clinic. They can contact me through - with any problems or concerns. I have spent 34 minutes for this visit in face to face time with this patient, documentation and coordination of care. Cathy Silva, ASSOCIATE PASTOR-BC, CHALK CUTTER, [facility] Neurology, Headache Clinic documented in this encounter Plan of Treatment Scheduled Referrals Name Type Priority Associated Diagnoses Orde r Schedule Referral to Physical Therapy Outpatient Referral Routine Neck pain Ordered: 11/20/2021 documented as of this encounter Visit Diagnoses Diagnosis Migraine without aura and without status migrainosus, not intractable Migraine without aura, without mention of intractable migraine without mention of status migrainosus Neck pain Cervicalgia documented in this encounter Care Teams Rabies Inspector Relationship Specialty Start Date End Date Kristen Cheng APRN [address] [place] [address] PCP - General Family Medicine 01/17/19 12/13/21 documented as of this encounter
--- OUTSIDE RECORDS SUMMARY | 2024-04-12 11:18 | XMS_ITS | Encounter Summary ---
Author Organization [facility] [place] [address] Care Team Providers Care General Adjuster Name Role Phone Prosper Kristen JARVIS Primary Care Provider [phone] Reason for Visit * Reason Comments Follow-up Alopecia Encounter Details Date Type Department Care Team (Late st Contact Info) Description 02/20/2019 9:45 AM EDT Office Visit Dermatology at [facility] [address] [place] [address] Edwar Seymour MD [address] [facility] [address] Alopecia (Primary Dx); Scalp pruritus; High risk medication use Social [...] this encounter Patient Instructions * Patient Instructions* Gio Bishop - 02/20/2019 9:45 AM EDT Plan for Aziza: ?? Continue Rx clobetasol solution apply to the scalp twice daily as needed for itchiness. ?? Start Rx spironolactone 50 mg take once daily for 2 weeks. If labs are normal, plan to increase to 150 mg take once daily ?? Labs today: CMP ?? Labs in 2 weeks: BMP documented in this encounter Progress Notes * Edwar Seymour MD - 02/20/2019 9:45 AM EDT Images from the original note were not included. Dermatology [place], [place] FOLLOW-UP Chief Complaint: Alopecia f/u - symptom improvement History of Present Illness Aziza Tamez is a 58 y.o. female. History of alopecia with pruritus currently treating with clobetasol solution with significant improvement of pruritus. She rates the pruritus of 1-3 out of 10 and flares intermittently. She has not treated with Rogaine due to concern about side effects. Antecedent History: hair loss that was first identified 8 months ago. Never been treated or biopsied. She reports associated burning, tightness, and itchiness, which she rates as 9/10, though the severity fluctuates. Prior to onset, she sustained severe sunburn to the area. She notes worsening of symptoms with exposure to sunlight and wearing hats. Since onset, she has noted decreased density andmore hair in the shower drain. She denies [...] anorexia, but denies any history of hypothyroidism. Interval changes to Medications and Medical, Family and Social Histories (including alcohol and tobacco use) Since Last Visit 01/17/19: No significant interval history. Skin Cancer History No personal history of skin cancer Unknown family history of skin cancer (patient was adopted) Allergies Latex; Sulfa (sulfonamide antibiotics); Trazodone; and Lactose intolerance [lactase] Medications has a current medication list which includes the following prescription(s): gabapentin, buspirone, clobetasol, vilazodone, buspirone, lamotrigine, loratadine, docusate sodium, hydroxyzine, rizatriptan, and mirtazapine, and the following Facility-Administered Medications: lactated ringers. ?? 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 Examination Standby: Gio Bishop Mood is appropriate. Well developed, well-nourished in no apparent distress, alert and oriented to time, person, place and situation. Focused skin examination of the scalp, face significant for the following: ?? Hypodensity of hair on the superior and crown of scalp. Normal density of the parietal and lowerparietal scalp. No dermatitis, erosion, or crust. Images Photos taken by Lev Seymour MD. with patient's verbal permission for use for clinical and education purposes. Assessment and Plan Nonscarring Alopecia with Pruritus DDx: androgenetic alopecia over telogen efflulvium, Pruritus is well-controlled with topical clobetasol but no change in alopecia. Reviewed treatment options, including benefits and risks: spironolactone vs topical minoxidil. Answered all questions. Patient expresses that she would like to pursue treatment option that would prevent worsening of symptoms. Declines dione after discussing side effects but she declines. Elects trial of spironolactone. Discussed expectations that her hair density would not return to baseline ofher 40s but would improve and the decline in density would be a shallower decline over time with spironolactone 150mg. Discussed that lower doses would not likely help but we could try trial of lowerdose. ?? Continue Rx clobetasol solution apply to the scalp bid prn for itchiness. Counseled: risks of topical steroids, including but not limited to atrophy, dyspigmentation. ?? Start Rx spironolactone 50 mg po qd for 2 weeks. If labs are normal, plan to increase to 150 mg po daily Taking High Risk Medication [Spironolactone] Patient denies any history of hypotension. Counseled: FDA-approved anti-androgen and diuretic used off-label for the treatment of hirsutism, scalp alopecia and/or acne. Potential adverse effects include but are not limited to GI upset/diarrhea, headches/lightheadedness, menstrual irregularities, breast tenderness, muscle aches, arrhythmia. Answered all questions. Labs (baseline): CMP Labs in 2w: BMP Follow-up: in August 2019 for alopecia follow-up or sooner as needed for worsening or new dermatitis. Note initiated by Yessica Tran LPN Gio Edna has performed the documentation for this encounter in the presence of and acting as a scribe for Dr. Seymour. I performed the above scribed service and agree with the accuracy of the documentation in this encounter. Edwar Seymour MD FAAD Section of Dermatology [facility] * Edwar Seymour MD - 02/20/2019 9:45 AM EDT LFTs and renal function normal. Continue with spironolactone as planned. * Vianey Dickey - 02/20/2019 9:45 AM EDT Left detailed voicemail regarding labs and to continue the spironolactone as planned. Left call back number if patient has any questions. documented in this encounter Plan of Treatment Not on file documented as of this encounter Procedures Procedure Name Priority Date/Time Associated Diagnosis Comments COMPREHENSIVE METABOLIC PANEL Routine 02/20/2019 10:29 AM EDT High risk medication use documented in this encounter Results * Comprehensive metabolic panel (non-fasting) (02/20/2019 10:29 AM EDT) Glucose 93 65 - 199 mg/dL [facility] Comment:Diabetes: >=200 mg/d L plus symptoms Blood Urea Nitrogen 9 8 - 18 mg/dL [facility] Creatinine 1.01 0.70 - 1.20 mg/dL [facility] Sodium 143 135 - 145 mmol/L [facility] Potassium 4.8 3.5 - 5.0 mmol/L [facility] Comment: Please note: ??Patients with WBC >100,000 may have falsely elevated Potassium levels. ??For accurate Potassium quantification in these patients send serum separator tube (gold top) for subsequent determinations. ??Contact the Clinical Chemistry Laboratory if there are any questions. Chloride 105 98 - 107 mmol/L [facility] Carbon Dioxide 26 22 - 31 mmol/L [facility] Anion Gap 12 5 - 15 mmol/L [facility] Calcium 9.9 8.5 - 10.5 mg/dL [facility] Protein, Total 7.3 6.1 - 8.0 gm/dL [facility] Albumin 4.2 3.2 - 5.2 gm/dL [facility] Aspartate Aminotransferase 24 0 - 30 unit/L [facility] Alanine Aminotransferase 14 0 - 30 unit/L [facility] Alkaline Phosphatase 45 40 - 104 unit/L [facility] Bilirubin, Total 0.4 0.2 - 1.3 mg/dL [facility] Est Glomerular Filtration Rate 61 >=60 mL/min/1. 73 m?? [facility] Comment: The eGFR was calculated using the CKD-EPI equation. As with all creatinine based estimates of kidney function, eGFR values calculated with the CKD-EPI equation are not accurate in patients with acute kidney failure, extremes of body mass or the acutely ill. [email or web address]ENEnkf eGFR 71 >=60 mL/min/1. 73 m?? [facility] Comment: The eGFR was calculated using the CKD-EPI equation. As with all creatinine based estimates of kidney function, eGFR values calculated with the CKD-EPI equation are not accurate in patients with acute kidney failure, extremes of body mass or the acutely ill. [email or web address] Blood specimen (specimen) 02/20/2019 10:29 AM EDT 02/20/2019 12:45 PM EDT Narrative Resulting Agency Comment Spec In Lab Edwar Seymour MD CHEMISTRY ORDERABLES [facility] [place] [address] documented in this encounter Visit Diagnoses Diagnosis Alopecia- Primary Alopecia, unspecified Scalp pruritus Unspecified pruritic disorder High risk medication use Encounter for long-term (current) use of other medications documented in this encounter Care Teams General Adjuster Relationship Specialty Start Date End Date Kristen Cheng APRN [address] [place] [address] PCP - General Family Medicine 01/17/19 12/13/21 documented as of this encounter
--- OUTSIDE RECORDS SUMMARY | 2024-04-12 11:18 | XMS_ITS | Encounter Summary ---
[place] [address] Care Team Providers Care Director Community Center Name Role Phone Kristen Cheng APRN Primary Care Provider [phone] Encounter Details Date Type Department Care Team (Mo st Contact Info) Description 01/18/2019 Telephone Dermatology at [facility] [address] [place] [address] Edwar Seymour MD [address] [facility] [place] [address] Social History Tobacco Use Types Packs/Day Years [...] Telephone Encounter - Ovidio Sigala LNA - 01/18/2019 8:46 AM EDT Left Ms. Tamez a voicemail with my direct call back number to schedule six week follow up for alopecia with documented in this encounter Plan of Treatment Not on file documented as of this encounter Visit Diagnoses Not on filedocumented in this encounter Care Teams Director Community Center Relationship Specialty Start Date End Date Kristen Cheng APRN [facility] [place] [address] PCP - General Family Medicine 01/17/19 12/13/21 documented as of this encounter
--- OUTSIDE RECORDS SUMMARY | 2024-04-12 11:19 | XMS_ITS | Encounter Summary ---
Author Organization [facility] Address [facility] [place] [address] Care Team Providers Care Fiberglass Model Maker Name Role Phone Liang Deluca MD Primary Care Provider [phone] Encounter Details Date Type Department Care Team (Latest Contact Info) Description 09/27/2013 7:05 AM EST - 09/27/2013 10:09 AM EST Hospital Encounter [place] [address] Jeremy Condon III, MD [facility] [place] [address] Discharge Disposition: Home Social History Tobacco Use Types Packs/Day Years Used Date Smoking Tobacco: Never Alcohol Use Standard Drinks/Week Comments Yes 5 (1 standard drink = 0.6 oz pur e alcohol) interminttent Sex and Gender Information Value Date Recorded Sex Assigned at Not on file Gender Identity Not on file Sexual Orientation Not on file documented as of this encounter Last Filed Vital Signs Vital Sign Reading Time Taken Comments Blood Pressure 119/61 09/27/2013 9:42 AM EST Pulse 50 09/27/2013 9:42 AM EST Temperature 36.8 ??C (98.2 ??F) 09/27/2013 9:42 AM ES T Respiratory Rate 16 09/27/2013 9:39 AM EST Oxygen Saturation 100% 09/27/2013 9:42 AM EST Inhaled Oxygen Concentration - - Weight 53.5 kg (118 lb) 09/27/2013 7:16 AM EST Height 170.2 cm (5' 7) 09/27/2013 7:16 AM EST Body Mass Index 18.48 09/27/2013 7:16 AM EST documented in this encounter Discharge Instructions * Discharge Instructions* Casandra Salazar RN - 09/27/2013 9:39 AM EST Rest today. Tylenol if needed for headache. For questions/concerns about today's ECT treatment call: After 5pm/weekends call and ask for ceo and president on-call. POST ANESTHESIA INSTRUCTIONS Go home, rest, use caution on stairs. Change positions slowly. Do not smoke if you are alone. Diet light to regular as tolerated today. If nausea occurs start with clear liquids and progress slowly. No driving, operating machinery, alcoholic beverages and no important decisions for 24 hours. Monitor IV site for signs and symptoms of infection: increasing redness, swelling, foul drainage, if occurs contact M.D. Patients who have had endotrachial tubes (this tube, used by anesthesia department, is passed down your throat after you are asleep, to ensure safe air passage during your operation). A sore throat is normal due to the tube. Cold liquids or soothing lozenges will help ease the discomfort. The generalized muscle aches are due to the medication given to you just before the tube is inserted. As the medication wears off, you may develop muscle soreness, which usually goes away in 12-24 hours. documented in this encounter Medications at Time of Discharge Medication Sig Dispensed Refills Start Date End Date mirtazapine (REMERON) 30 mg tabletIndications:cris r depressive disorder Take 1 tablet by mouth nightly. Indications: Major Depressive Disorder 30 tablet 0 08/21/2013 ciprofloxacin (CIPRO) 500 mg tablet Take 1 tablet by mouth 2 times daily. 20 tablet 0 08/21/2013 10/25/2013 hydrOXYzine (ATARAX) 50 mg tablet Take 2 tablets by mouth nightly as needed (sleep). 60 tablet 0 08/21/2013 09/30/2015 sertraline (ZOLOFT) 100 mg tabletIndications:cris r depressive disorder Take 2 tablets by mouth daily. Indications: Major Depressive Disorder 60 tablet 0 08/21/2013 03/15/2018 ibuprofen (ADVIL;MOTRIN) 600 mg tabletIndications:pain Take 600 mg by mouth every 6 hours as needed. Indications: Pain 09/30/2015 hydroCODone-acetaminop hen (VICODIN) 5-500 mg per tabletIndications:pain Take 0.5 tablets by mouth 2 times daily as needed. Indications: Pain 10/25/2013 documented as of this encounter H&P Notes * Leno Luna - 09/27/2013 7:18 AM EST Patient Name: Aziza Tamez Patient Age: 52 y.o. Birthdate: 1960 Admit date: 09/27/2013 Attending Physician: Jeremy Condon MD HPI: Aziza Tamez is a 52 y.o. female who was been prescribed ECT. Pertinent history changes since last H&P (no changes if nothing noted): Patient reports 'chipped tooth.' It is not loose and patient is unsure how it occurred. Suicidal ideation: none Homicidal ideation: none ROS: All negative. Denied cough, chest pain, SOB. PE: Patient Vitals for the past 24 hrs: BP Temp Temp src Pulse Resp SpO2 Height Weight 09/27/13 0716 129/67 mmHg 36.7 ??C (98.1 ??F) Temporal 55 15 100 % 170.2 cm (5' 7) 53.524 kg (118 lb) Lungs: clear to auscultation bilaterally with good inspiratory effort. Heart: regular rate and rhythm, no murmurs/gallops/rubs. Remaining exam WNL. A/P: I have seen and examined this patient. Proceed with planned ECT procedure. documented in this encounter Procedure Notes * Jeremy Condon MD - 09/27/2013 9:19 AM ESTProcedure(s): ECT Pre-Procedure Diagnose(s): Major depressive disorder, recurrent episode, severe, without mention ofpsychotic behavior ECT SUBSEQUENT TREATMENT NOTE Patient received right-unilateral ECT in the PACU. Course type: maintenance The primary diagnosis is 296.33. Interval history: Mood is good and has maintained over the past week. Has had headaches/nausea at times over the past week, but relates these to the weather Patient was attached to monitoring equipment. The anesthesia team administered the following medications: methohexital 70 mg succinylcholine 60 mg ECT parameters: RUL 0.3/40/5/800 36 second motor seizure 82 second EEG seizure Patient was stabilized and appeared to tolerate the procedure. Complications: none Changes/recommendations for next treatment: none Next treatment date: stopping acute course; no more treatments scheduled Route note to: Dr. Alon Davis documented in this encounter Miscellaneous Notes * Miscellaneous - Provider, Scanning - 09/27/2013 5:53 PM EST * Miscellaneous - Provider, Scanning - 09/27/2013 3:18 PM EST * Miscellaneous - Provider, Scanning - 09/27/2013 11:52 AM EST documented in this encounter Plan of Treatment Not on file documented as of this encounter Procedures Procedure Name Priority Date/Time Associated Diagnosis Comments ECT (WRVU 2.5) 09/27/2013 9:04 AM EST 296.33 documented in this encounter Visit Diagnoses Not on filedocumented in this encounter Administered Medications Inactive Administered Medications - up to 3 most recent administrations Medication Order MAR Action Action Date Dose Rate Site acetaminophen (TYLENOL) tablet 650 mg 650 mg, Oral, EVERY 4 HOURS PRN, Starting on Velia 09/27/13 at 0943, Until Velia 09/27/13 at 1218, Pain, Maximum dose of acetaminophen is 4000 mg from all sources in 24 hours., Routine Given 09/27/2013 10:07 AM EST 650 mg documented in this encounter Active and Recently Administered Medications Times are shown in EST. PRN Medication Order 09/25/2013 09/26/2013 09/27/2013 acetaminophen (TYLENOL) tablet 650 mg (CANCELED) 650 mg, Oral, EVERY 4 HOURS PRN, Starting on Velia 09/27/13 at 0943, Until Velia 09/27/13 at 1218, Pain, Maximum dose of acetaminophen is 4000 mg from all sources in 24 hours., Routine 1007 (Given - Provid er: Casandra Salazar RN) documented in this encounter Care Teams Fiberglass Model Maker Relationship Specialty Start Date End Date Liang Deluca MD [address] [place] [id number] PCP - General 07/14/10 09/29/15 documented as of this encounter
--- OUTSIDE RECORDS SUMMARY | 2024-04-12 11:19 | XMS_ITS | Encounter Summary ---
Author Organization [facility] [place] [address] Care Team Providers Care Java Sql Developer Name Role Phone Liang Deluca MD Primary Care Provider Encounter Details Date Type Department Care Team (Latest Contact Info) Description 12/11/2013 6:16 AM EDT - 12/11/2013 9:10 AM EDT Hospital Encounter [place] [address] Mick De Leon MD [facility] [place] [address] Discharge Disposition: Home Social History Tobacco Use [...] Sign Reading Time Taken Comments Blood Pressure 131/89 12/11/2013 8:56 AM EDT Pulse 65 12/11/2013 8:56 AM EDT Temperature 36.5 ??C (97.7 ??F) 12/11/2013 8:47 AM ED T Respiratory Rate 16 12/11/2013 8:56 AM EDT Oxygen Saturation 100% 12/11/2013 8:56 AM EDT Inhaled Oxygen Concentration - - Weight 53.5 kg (118 lb) 12/11/2013 6:52 AM EDT Height 170.2 cm (5' 7) 12/11/2013 6:52 AM EDT Body Mass Index 18.48 12/11/2013 6:52 AM EDT documented in this encounter Discharge Instructions * Discharge Instructions* Paige Bailey RN - 12/11/2013 8:35 AM EDT Rest today. Tylenol if needed for headache. For questions/concerns about today's ECT treatment call: After 5pm/weekends call and ask for vice president [employer] on-call. POST ANESTHESIA INSTRUCTIONS Go home, rest, [...] Major Depressive Disorder 30 tablet 0 08/21/2013 levothyroxine (SYNTHROID) 25 mcg tablet Take 25 mcg by mouth daily. 09/30/2015 hydrOXYzine (ATARAX) 50 mg tablet Take 2 tablets by mouth nightly as needed (sleep). 60 tablet 0 08/21/2013 09/30/2015 sertraline (ZOLOFT) 100 mg tabletIndications:cris r depressive disorder Take 2 tablets by mouth daily. Indications: Major Depressive Disorder 60 tablet 0 08/21/2013 03/15/2018 ibuprofen (ADVIL;MOTRIN) 600 mg tabletIndications:pain Take 600 mg by mouth every 6 hours as needed. Indications: Pain 09/30/2015 documented as of this encounter Progress Notes * Leigh Ann Mo RN - 12/11/2013 8:27 AM EDT Pt arrived from minor drowsy, arousable, VSS, lungs CTA, IV flushed 10ccNS documented in this encounter H&P Notes * Evon Rebeka, DO - 12/11/2013 7:16 AM EDT Patient Name: Aziza Tamez Patient Age: 53 y.o. Birthdate: 1960 Admit date: 12/11/2013 Attending Physician: Mick De Leon MD HPI: Aziza Tamez is a 53 y.o. female who has been receiving ECT. Pertinent history changes since last H&P (no changes if nothing noted): decreased sertraline to150 mg Yesterday after seeing psychiatrist. Suicidal ideation: denies Homicidal ideation: denies ROS: All negative except for Back pain, starting PT on . PE: Lungs: clear to auscultation bilaterally with good inspiratory effort. Heart: regular rate and rhythm, no murmurs/gallops/rubs. Remaining exam WNL. A/P: Proceed with planned ECT procedure. documented in this encounter Procedure Notes * Mick De Leon MD - 12/11/2013 8:02 AM EDTProcedure(s): ECT Pre-Procedure Diagnose(s): Major depressive disorder, recurrent episode, severe, without mention ofpsychotic behavior ECT SUBSEQUENT TREATMENT NOTE Patient received right-unilateral ECT in the PACU. Course type: maintenance The primary diagnosis is 296.33. Interval history: Pt has not spoken with Dr. Davis about Dr. Pratt's thought of using ketamine. She last saw him yesterday - next apt after her next scheduled treatment (12/27/13). She agrees to call and have this conversation before next treatment. Patient was attached to monitoring equipment. The anesthesia team administered the following medications: methohexital 80 mg succinylcholine 60 mg Ketorolac 30 mg ECT parameters: RUL 0.3/40/5/800 35 second motor seizure 67 second EEG seizure Patient was stabilized and appeared to tolerate the procedure. Complications: none Changes/recommendations for next treatment: Use ketamine as long as pt and Dr. Davis have discussed this option. Next treatment date: 12/27/13 Route note to: Dr. Alon Davis -------- documented in this encounter Miscellaneous Notes * Miscellaneous - Provider, Scanning - 12/11/2013 7:59 PM EDT * Miscellaneous - Provider, Scanning - 12/11/2013 2:43 PM EDT documented in this encounter Plan of Treatment Not on file documented as of this encounter Procedures Procedure Name Priority Date/Time Associated Diagnosis Comments ECT (WRVU 2.5) 12/11/2013 8:06 AM EDT ECT 296.33 documented in this encounter Visit Diagnoses Not on filedocumented in this encounter Administered Medications Inactive Administered Medications - up to 3 most recent administrations Medication Order MAR Action Action Date Dose Rate Site acetaminophen (TYLENOL) tablet 500 mg 500 mg, Oral, ONCE, 1 dose, On Tue12/11/13 at 0730, Maximum dose of acetaminophen is 4000 mg from all sources in 24 hours., Routine Given 12/11/2013 7:25 AM EDT 500 mg documented in this encounter Active and Recently Administered Medications Times are shown in EDT. Scheduled Medication Order 12/09/2013 12/10/2013 12/11/2013 acetaminophen (TYLENOL) tablet 500 mg (COMPLETED) 500 mg, Oral, ONCE, 1 dose, On Tue12/11/13 at 0730, Maximum dose of acetaminophen is 4000 mg from all sources in 24 hours., Routine 0725 (Given - Provid er: Paige Bailey RN) documented in this encounter Care Teams Java Sql Developer Relationship Specialty Start Date End Date Liang Deluca MD [address] [place] [id number] PCP - General 07/14/10 09/29/15 documented as of this encounter
--- OUTSIDE RECORDS SUMMARY | 2024-04-12 11:19 | XMS_ITS | Encounter Summary ---
Author Organization Formerly [facility] [place] [address] Care Team Providers Care Loom Inspector Name Role Phone Liang Deluca MD Primary Care Provider [phone] Encounter Details Date Type Department Care Team (Late st Contact Info) Description 06/13/2014 Telephone Psychiatry [place] [id number] Kar Pollock RN Social History Tobacco Use Types Packs/Day Years Used Date Smoking Tobacco: Never Alcohol Use Standard Drinks/Week Comments Yes 5 (1 standard drink = 0.6 oz pur e alcohol) interminttent Sex and Gender Information Value Date Recorded Sex Assigned at Not on file Gender Identity Not on file Sexual Orientation Not on file documented as of this encounter Miscellaneous Notes * Telephone Encounter - Kar Pollock RN - 06/20/2014 12:43 PM EDT At 12:44 PM on , 06/20/14 this hand sign writer called this pt at [phone] (H) and left a voice mail requesting a call back ([phone]) so this hand sign writer can relay the following message from Dr. Condon we don???t need her at this time, but we might ask her to participate in the future. She would also be good to come in and talk with the medical students next year. * Telephone Encounter - Kar Pollock RN - 06/20/2014 10:58 AM EDT At 10:49 AM on , 06/20/14 this pt called and apologized for taking so long to respond to this hand sign writer's previous voicemail.This hand sign writer explained we are currently working on an education ECT video and the purpose of the call was to ask if she might be interested in being part of this video. This pt immediately responded I would be absolutely interested! She stated she's been using all (her) tools and feels (she's) on the right path. She also mentioned hit(ting) a bump in the road in March and said she is getting counseling. She stated she hasan appointment to see Dr. Davis today. She stated she is doing very well (6 month out from her last ECT in December 2013). She remarked ([facility]) has been a great support and reiterated (she is) definitely interested (in being part of the ECT video). She stated the best times to call her are in the movement assembly final inspector. This hand sign writer told her this hand sign writer will discuss this with Dr. Condon and call back with further information. * Telephone Encounter - Kar Pollock RN - 06/13/2014 2:39 PM EDT At 2:40 PM on 06/13/14 this hand sign writer left a voice mail for this pt at [phone] (T) requesting she call this hand sign writer back at [phone]. The purpose of the call was to let her know we are in the process of working on an ECT video and are wondering if she would be willing to be interviewed for this video. If so a time can be set up forher to talk with Dr. Alonso about it further. documented in this encounter Plan of Treatment Not on file documented as of this encounter Visit Diagnoses Not on filedocumented in this encounter Care Teams Loom Inspector Relationship Specialty Start Date End Date Liang Deluca MD [address] [place] [address] [place] [address] PCP - General 07/14/10 09/29/15 documented as of this encounter
--- OUTSIDE RECORDS SUMMARY | 2024-04-12 11:19 | XMS_ITS | Encounter Summary ---
Author Organization [facility] Address [facility] [place] [address] Care Team Providers Care Technical Illustrations Map Inker Name Role Phone Liang Deluca MD Primary Care Provider Encounter Details Date Type Department Care Team (Late st Contact Info) Description 11/29/2013 7:45 AM EDT - 11/29/2013 8:00 AM EDT [place] [address] João Pratt MD [facility] [place] [address] ECT (WRVU 2.5) Social History Tobacco Use Types Packs/Day Years [...] Sign Reading Time Taken Comments Blood Pressure 119/66 11/29/2013 7:10 AM EDT Pulse 49 11/29/2013 7:10 AM EDT Temperature 36.3 ??C (97.3 ??F) 11/29/2013 7:10 AM ED T Respiratory Rate 16 11/29/2013 7:10 AM EDT Oxygen Saturation 96% 11/29/2013 7:10 AM EDT Inhaled Oxygen Concentration - - Weight - - Height - - Body Mass Index - - documented in this encounter Discharge Instructions * Discharge Instructions* Paige Bailey RN - 11/29/2013 8:48 AM EDT POST ANESTHESIA INSTRUCTIONS Go home, rest, use [...] soreness, which usually goes away in 12-24 hours.Rest today. Tylenol if needed for headache. For questions/concerns about today's ECT treatment call: After 5pm/weekends call and ask for certified prosthetist vice president on-call. documented in this encounter Medications at [...] as of this encounter Progress Notes * Shauna Portillo RN - 11/29/2013 9:55 AM EDT Patient states that she is ready to leave. Patient meets SDP Criteria for discharge. * Shauna Portillo RN - 11/29/2013 9:42 AM EDT Patient arrived from PACU, assessment done, monitors placed, see flow sheet for specifics. Will continue to monitor. Discharge instructions gone over with patient, she states that she understands andwill call with any questions or concerns. * Janel Manley RN - 11/29/2013 9:33 AM EDT Pt recovered from ECt without difficulties. Handoff report given to MAHI Tirado in SDS documented in this encounter H&P Notes * Rebeka Barnard DO - 11/29/2013 7:20 AM EDT Patient Name: Aziza Tamez Patient Age: 53 y.o. Birthdate: 1960 Admit date: 11/29/2013 Attending Physician: João Pratt MD HPI: Aziza Tamez is a 53 y.o. female who has been receiving ECT. Pertinent history changes since last H&P (no changes if nothing noted): Suicidal ideation: enodsorses intermittent SI but no plan and no intent, and feels safe out of hospital and sister who is here with patient, lives with , therapist is on vacation but can call psychiatrist. Homicidal ideation: denies ROS: All negative. PE: Lungs: clear to auscultation bilaterally with good inspiratory effort. Heart: regular rate and rhythm, no murmurs/gallops/rubs. Remaining exam WNL. A/P: Proceed with planned ECT procedure. documented in this encounter Procedure Notes * João Pratt MD - 11/29/2013 6:29 AM EDTProcedure(s): ECT Pre-Procedure Diagnose(s): Major depressive disorder, recurrent episode, severe, without mention ofpsychotic behavior ECT SUBSEQUENT TREATMENT NOTE Patient received right-unilateral ECT in the PACU. Course type: maintenance The primary diagnosis is 296.33. Interval history: struggling more with depression. 5 to 6 out of (10 max). Some new suicidal thoughts. No plan or intent. Feels that she can ask for help. Sees Dr. Davis on 12/10. Patient was attached to monitoring equipment. The anesthesia team administered the following medications: methohexital 80 mg succinylcholine 60 mg Ketorolac 25 mg ECT parameters: RUL 0.3/40/5/800 51 second motor seizure 60 second EEG seizure Patient was stabilized and appeared to tolerate the procedure. Complications: none Changes/recommendations for next treatment: none Next treatment date: TBD: Dr. Davis. I left a message for Dr. Davis to look to increase Aziza's treatment frequency. Would consider ketamine in future given hyperalgesia. Route note to: Dr. Alon Davis -------- I spoke over the phone with Dr. Davis. He is in favor of having patient receive another ECT treatment next week and to try ketamine. Aziza is also in favor of this. She has chronic back pain and willing to try ketamine from both a pain perspective and depression perspective. Juancarlos Pratt documented in this encounter Miscellaneous Notes * Miscellaneous - Provider, Scanning - 11/29/2013 7:48 PM EDT * Miscellaneous - Provider, Scanning - 11/29/2013 4:27 PM EDT documented in this encounter Plan of Treatment Not on file documented as of this encounter Procedures Procedure Name Priority Date/Time Associated Diagnosis Comments ECT (WRVU 2.5) 11/29/2013 8:54 AM EDT 296.33 documented in this encounter Visit Diagnoses Not on filedocumented in this encounter Administered Medications Inactive Administered Medications - up to 3 most recent administrations Medication Order MAR Action Action Date Dose Rate Site acetaminophen (TYLENOL) tablet 1,000 mg 1,000 mg, Oral, ONCE, 1 dose, On Velia 11/29/13 at 0730, Maximum dose of acetaminophen is 4000 mg from all sources in 24 hours., Routine Given 11/29/2013 7:16 AM EDT 1,000 mg documented in this encounter Active and Recently Administered Medications Times are shown in EDT. Scheduled Medication Order 11/27/2013 11/28/2013 11/29/2013 acetaminophen (TYLENOL) tablet 1,000 mg (COMPLETED) 1,000 mg, Oral, ONCE, 1 dose, On Velia 11/29/13 at 0730, Maximum dose of acetaminophen is 4000 mg from all sources in 24 hours., Routine 0716 (Given - [facility] er: Shauna Portillo RN) documented in this encounter Care Teams Technical Illustrations Map Inker Relationship Specialty Start Date End Date Liang Deluca MD [address] [place] [id number] PCP - General 07/14/10 09/29/15 documented as of this encounter
--- OUTSIDE RECORDS SUMMARY | 2024-04-12 11:19 | XMS_ITS | Encounter Summary ---
Author Organization Formerly [facility] Address [facility] [place] [address] Care Team Providers Care Blow Torch Operator Name Role Phone Liang Deluca MD Primary Care Provider [phone] Encounter Details Date Type Department Care Team (Late st Contact Info) Description 10/11/2013 8:00 AM EST - 10/11/2013 8:15 AM EST Surgery [place] [phone] Jeremy Condon III, MD [facility] [place] [address] ECT (WRVU 2.5) Social History Tobacco Use [...] Sign Reading Time Taken Comments Blood Pressure 112/82 10/11/2013 8:15 AM EST Pulse 57 10/11/2013 8:15 AM EST Temperature 36.5 ??C (97.7 ??F) 10/11/2013 7:00 AM ES T Respiratory Rate 12 10/11/2013 8:15 AM EST Oxygen Saturation 99% 10/11/2013 8:15 AM EST Inhaled Oxygen Concentration - - Weight 53.5 kg (118 lb) 10/11/2013 7:00 AM EST Height 170.2 cm (5' 7) 10/11/2013 7:00 AM EST Body Mass Index 18.48 10/11/2013 7:00 AM EST documented in this encounter Discharge Instructions * Discharge Instructions* Cathy Leary RN - 10/11/2013 7:14 AM EST 1. You may have received medication before and/or during your procedure, which affects judgment andreaction time. 2. Do not drive, operate machinery, drink alchololic beverages, or make important decisions for 24 hours. 3. Be careful on stairs, as you may be unsteady on your feet. 4. You may eat a regular diet as tolerated. 5. Do not smoke if you are alone. 6. IV site- slight redness or tenderness is normal, you can use warm compresses. If tenderness and redness increases or foul drainage occours, please contact your M.D. documented in this encounter Medications at Time [...] Pain 10/25/2013 documented as of this encounter Progress Notes * Yudi Hdez RN - 10/11/2013 8:49 AM EST REviewed Discharge instructions with pt and sister. Dressed independently. Tolerated po. documented in this encounter H&P Notes * Evon RebekaDO - 10/11/2013 7:27 AM EST Patient Name: Aziza Tamez Patient Age: 52 y.o. Birthdate: 1960 Admit date: 10/11/2013 Attending Physician: Jeremy Condon MD HPI: Aziza Tamez is a 52 y.o. female who has been prescribed ECT Pertinent history changes since last H&P (no changes if nothing noted): Suicidal ideation: denies Homicidal ideation: denies ROS: All negative. PE: Lungs: clear to auscultation bilaterally with good inspiratory effort. Heart: regular rate and rhythm, no murmurs/gallops/rubs. Remaining exam WNL. A/P: Proceed with planned ECT procedure. documented in this encounter Procedure Notes * Jeremy Condon MD - 10/11/2013 7:55 AM ESTProcedure(s): ECT Pre-Procedure Diagnose(s): Major depressive [...] medications: methohexital 80 mg succinylcholine 60 mg ECT parameters: RUL 0.3/40/5/800 10 second motor seizure 63 second EEG seizure Patient was stabilized and appeared to tolerate the procedure. Complications: none Changes/recommendations for next treatment: none Next treatment date: TBD; likely 2-3 weeks Route note to: Dr. Alon Davis documented in this encounter Miscellaneous Notes * Miscellaneous - Provider, Scanning - 10/12/2013 8:44 AM EST * Miscellaneous - Provider, Scanning - 10/11/2013 7:40 PM EST * Miscellaneous - Provider, Scanning - 10/11/2013 5:05 PM EST documented in this encounter Plan of Treatment Not on file documented as of this encounter Procedures Procedure Name Priority Date/Time Associated Diagnosis Comments ECT (WRVU 2.5) 10/11/2013 7:52 AM EST 296.33 documented in this encounter Visit Diagnoses Not on filedocumented in this encounter Active and Recently Administered Medications Care Teams Blow Torch Operator Relationship Specialty Start Date End Date Liang Deluca MD [address] [place] [address] [place] [address] PCP - General 07/14/10 09/29/15 documented as of this encounter
--- OUTSIDE RECORDS SUMMARY | 2024-04-12 11:19 | XMS_ITS | Encounter Summary ---
Author Organization [facility] Address [facility] [place] [address] Care Team Providers Care Community Education Coordinator Name Role Phone Liang Deluca MD Primary Care Provider Encounter Details Date Type Department Care Team (Late st Contact Info) Description 10/25/2013 8:45 AM EST - 10/25/2013 9:00 AM EST Surgery [place] [phone] Robert Gabriel MD [facility] [place] [address] ECT (WRVU 2.5) Social History Tobacco Use [...] Sign Reading Time Taken Comments Blood Pressure 113/77 10/25/2013 7:00 AM EST Pulse 51 10/25/2013 7:00 AM EST Temperature 36.3 ??C (97.3 ??F) 10/25/2013 7:00 AM ES T Respiratory Rate 16 10/25/2013 7:00 AM EST Oxygen Saturation 100% 10/25/2013 7:00 AM EST Inhaled Oxygen Concentration - - Weight - - Height - - Body Mass Index - - documented in this encounter Discharge Instructions * Discharge Instructions* Sarah Quevedo, RN - 10/25/2013 9:39 AM EST POST ANESTHESIA INSTRUCTIONS Go home, rest, use [...] Pain 09/30/2015 documented as of this encounter H&P Notes * Leno Luna - 10/25/2013 7:14 AM EST Patient Name: Aziza Tamez Patient Age: 52 y.o. Birthdate: 1960 Admit date: 10/25/2013 Attending Physician: Jeremy Condon MD HPI: Aziza Tamez is a 52 y.o. female who was been prescribed ECT. Pertinent history changes since last H&P (no changes if nothing noted): Patient reports significant headaches lasting up to 2 days after her 2-3 most recent ECT treatments. Suicidal ideation: none Homicidal ideation: none ROS: All negative. Denied cough, chest pain, SOB. PE: Patient Vitals for the past 24 hrs: BP Temp Temp src Pulse Resp SpO2 10/25/13 0700 113/77 mmHg 36.3 ??C (97.3 ??F) Oral 51 16 100 % Lungs: clear to auscultation bilaterally with good inspiratory effort. Heart: regular rate and rhythm, no murmurs/gallops/rubs. Remaining exam WNL. A/P: I have seen and examined this patient. Proceed with planned ECT procedure. documented in this encounter Procedure Notes * Robert Gabriel MD - 10/25/2013 8:50 AM ESTProcedure(s): ECT Pre-Procedure Diagnose(s): Major depressive disorder, recurrent episode, severe, without mention ofpsychotic behavior ECT SUBSEQUENT TREATMENT NOTE Patient received right-unilateral ECT in the PACU. Course type: maintenance The primary diagnosis is 296.33. Interval history: Mood is good and has maintained over the past week. Has had headaches for 2 d post treatments Patient was attached to monitoring equipment. The anesthesia team administered the following medications: methohexital 80 mg succinylcholine 60 mg Ketorolac 25 mg ECT parameters: RUL 0.3/40/5/800 30 second motor seizure 34 second EEG seizure Patient was stabilized and appeared to tolerate the procedure. Complications: none Changes/recommendations for next treatment: none Next treatment date: TBD: Dr. Davis would like 1 more in November per pt Route note to: Dr. Alon Davis documented in this encounter Miscellaneous Notes * Miscellaneous - Provider, Scanning - 10/25/2013 8:16 PM EST * Miscellaneous - Provider, Scanning - 10/25/2013 9:29 AM EST * Miscellaneous - Provider, Scanning - 10/25/2013 8:22 AM EST documented in this encounter Plan of Treatment Not on file documented as of this encounter Procedures Procedure Name Priority Date/Time Associated Diagnosis Comments ECT (WRVU 2.5) 10/25/2013 8:54 AM EST 296.33 documented in this encounter Visit Diagnoses Not on filedocumented in this encounter Active and Recently Administered Medications Care Teams Community Education Coordinator Relationship Specialty Start Date End Date Liang Deluca MD [address] [place] [address] PCP - General 07/14/10 09/29/15 documented as of this encounter
--- OUTSIDE RECORDS SUMMARY | 2024-04-12 11:19 | XMS_ITS | Encounter Summary ---
Author Organization [facility] Address [facility] [place] [address] Care Team Providers Care Roofer Assistant Name Role Phone Liang Deluca MD Primary Care Provider Encounter Details Date Type Department Care Team (Latest Contact Info) Description 10/11/2013 6:50 AM EST - 10/11/2013 8:57 AM EST Hospital Encounter [place] [address] Jeremy Condon III, MD [facility] [place] [address] Discharge Disposition: Home Social History Tobacco Use [...] Sign Reading Time Taken Comments Blood Pressure 132/69 10/11/2013 8:40 AM EST Pulse 60 10/11/2013 8:40 AM EST Temperature 36.6 ??C (97.9 ??F) 10/11/2013 8:31 AM ES T Respiratory Rate 16 10/11/2013 8:40 AM EST Oxygen Saturation 97% 10/11/2013 8:40 AM EST Inhaled Oxygen Concentration - - [...] Active and Recently Administered Medications Care Teams Roofer Assistant Relationship Specialty Start Date End Date Liang Deluca MD [address] [place] [address] [place] [address] PCP - General 07/14/10 09/29/15 documented as of this encounter
--- OUTSIDE RECORDS SUMMARY | 2024-04-12 11:19 | XMS_ITS | Encounter Summary ---
Author Organization [facility] Address [facility] [place] [address] Care Team Providers Care Career Development Coordinator Name Role Phone ThuanKeily MATHEUS Primary Care Provider + Encounter Details Date Type Department Care Team (Latest Contact Info) Description 10/16/2015 10:00 AM EST - 10/16/2015 11:59 PM [facility] Hospital [place] [address] Jeronimo Sosa MD [facility] [place] [address] Pelvic pressure syndrome; Dyspareunia; History of menorrhagia Discharge Disposition: Home Social History Tobacco Use Types Packs/Day Years Used Date Smoking Tobacco: Never Smokeless Tobacco: Never Alcohol Use Standard Drinks/Week Comments Yes 5 (1 standard drink = 0.6 oz pur e alcohol) interminttent Sex and Gender Information Value Date Recorded Sex Assigned at Not on file Gender Identity Not on file Sexual Orientation Not on file documented as of this encounter Medications at Time of Discharge Medication Sig Dispensed Refills Start Date End Date mirtazapine (REMERON) 30 mg tabletIndications:cris r depressive disorder Take 1 tablet by mouth nightly. Indications: Major Depressive Disorder 30 tablet 0 08/21/2013 lidocaine (XYLOCAINE) 2 % Gel Apply topically 3 times daily. 30 mL 2 10/16/2015 03/15/2018 busPIRone (BUSPAR) 15 mg Tablet Take 15 mg by mouth 2 times daily. 01/17/2019 LACTOBACILLUS ACIDOPHILUS (PROBIOTIC ORAL) Take by mouth daily. 018 sertraline (ZOLOFT) 100 mg tabletIndications:cris r depressive disorder Take 2 tablets by mouth daily. Indications: Major Depressive Disorder 60 tablet 0 08/21/2013 03/15/2018 documented as of this encounter Plan of Treatment Not on file documented as of this encounter Procedures Procedure Name Priority Date/Time Associated Diagnosis Comments US TRANSVAGINAL NON OB Routine 10/16/2015 10:48 AM EST Pelvic pressure syndrome Dyspareunia History of menorrhagia documented in this encounter Results * US Transvaginal Non OB (10/16/2015 10:48 AM EST) Anatomical Region Laterality Modality Ultrasound 10/16/2015 10:3 7 AM EST Impressions 10/17/2015 12:08 AM EST Impression 54 y/o with pelvic pressure, dyspareunia, and history of dysmenorrhea, for ultrasound evaluation Ultrasound - Transvaginal - Summary - The uterus is anteverted, and the endometrial echo measures 2.1 mm. - A 1.3 cm anterior intramural fibroid was noted. - Both ovaries were visualized, with subcentimeter calcifications noted. - Left ovary measures 2.3 x 1.3 x 1.2 cm; right ovary measures 2.2 x 1.7 x 1.6 cm. - No free fluid was visualized. - This study was performed transvaginally. I viewed the images and agree with the above interpretation. ?Jeronimo Sosa MD Electronically Signed Final Report ?? 10/17/2015 12:07 am Narrative 10/17/2015 12:08 AM EST Gynecological Report ? (Signed Final 10/17/2015 12:07 am) Patient Info ID #: ? [id number] ?: ??[birth year] (54 yrs) Name: ? ROSA L LACLAIR- ?Visit Date: 10/16/2015 10:37 am ? PETIT Performed By Performed By: ? Jeimy Alonzo RDMS Attending: ?Rosangela GONZALEZ, Jeronimo Gordon Referred By: ?JERONIMO SOSA MD Service(s) Provided ??UTV - Ultrasound - Transvaginal - [id number] ? [id number] Indications ??pelvic pressure, dyspareunia, history of ??fibroids, history of suspected endometriosis ------- History ------- Age: ?? 54 ------ Uterus ------ Uterus: ? Visualized Position: ?? Anteverted Size (cm) ?L: ??7.67 ?W: ?? 5.28 ? H: ??4.56 Description: ?? Small fundal calcification. ------ Myomas ------ ??Site ? L(cm) ? W(cm) ? D(cm) ? Location ??Anterior ? 1.2 ? 1.0 ? 1.3 ? Intramural ??Blood Flow ?RI ? PI ? Comments Endometrium Endometrium: ?Normal appearance Thickness(mm): ?2.07 [place] No fluid is visualized. Right Ovary Status: ?? Visualized Size (cm) ?L: ??2.21 ?W: ?? 1.68 ? H: ??1.57 Vol (ml): ?3.1 Morphology: ?Normal appearance Comment: ? Subcentimeter calcifications are seen Left Ovary Status: ?? Visualized Size (cm) ?L: ??2.26 ?W: ?? 1.32 ? H: ??1.16 Vol (ml): ?1.8 Morphology: ?Normal appearance Comment: ? Subcentimeter calcifications are seen Procedure Note Jeronimo Sosa MD - 10/17/2015 Gynecological Report (Signed Final 10/17/2015 12:07 am) Patient Info ID #: [id number] : [birth year] (54 yrs) Name: ROSA SPRINGER- Visit Date: 10/16/2015 10:37 am PETIT Performed By Performed By: Jeimy Alonzo RDMS Attending: Jeronimo Sosa MD Referred By: JERONIMO SOSA MD Service(s) Provided UT - Ultrasound - Transvaginal - [id number] Indications pelvic pressure, dyspareunia, history of fibroids, history of suspected endometriosis ------- History ------- Age: 54 ------ Uterus ------ Uterus: Visualized Position: Anteverted Size (cm) L: 7.67 W: 5.28 H: 4.56 Description: Small fundal calcification. ------ Myomas ------ Site L(cm) W(cm) D(cm) Location Anterior 1.2 1.0 1.3 Intramural Blood Flow RI PI Comments Endometrium Endometrium: Normal appearance Thickness(mm): 2.07 [place] No fluid is visualized. Right Ovary Status: Visualized Size (cm) L: 2.21 W: 1.68 H: 1.57 Vol (ml): 3.1 Morphology: Normal appearance Comment: Subcentimeter calcifications are seen Left Ovary Status: Visualized Size (cm) L: 2.26 W: 1.32 H: 1.16 Vol (ml): 1.8 Morphology: Normal appearance Comment: Subcentimeter calcifications are seen IMPRESSION Impression 54 y/o with pelvic pressure, dyspareunia, and history of dysmenorrhea, for ultrasound evaluation Ultrasound - Transvaginal - Summary - The uterus is anteverted, and the endometrial echo measures 2.1 mm. - A 1.3 cm anterior intramural fibroid was noted. - Both ovaries were visualized, with subcentimeter calcifications noted. - Left ovary measures 2.3 x 1.3 x 1.2 cm; right ovary measures 2.2 x 1.7 x 1.6 cm. - No free fluid was visualized. - This study was performed transvaginally. I viewed the images and agree with the above interpretation. Jeronimo Sosa MD Electronically Signed Final Report 10/17/2015 12:07 am Jeronimo Sosa MD IMG US PELVIC ORDERA BLES documented in this encounter Visit Diagnoses Diagnosis Pelvic pressure syndrome Pelvic congestion syndrome Dyspareunia History of menorrhagia Personal history of other genital system and obstetric disorders documented in this encounter Care Teams Career Development Coordinator Relationship Specialty Start Date End Date Keily Larose APRN [address] [place] [address] , [address] [place] [address] PCP - General Family Medicine 09/30/15 01/16/19 documented as of this encounter
--- OUTSIDE RECORDS SUMMARY | 2024-04-12 11:19 | XMS_ITS | Encounter Summary ---
Author Organization [facility] [place] [address] Care Team Providers Care Bag Grader Name Role Phone Liang Deluca MD Primary Care Provider Encounter Details Date Type Department Care Team (Latest Contact Info) Description 12/27/2013 6:10 AM EDT - 12/27/2013 9:18 AM EDT Hospital Encounter [place] [address] Brandie Rios MD [facility] [place] [address] Discharge Disposition: Home Social History Tobacco Use [...] Sign Reading Time Taken Comments Blood Pressure 138/77 12/27/2013 8:29 AM EDT Pulse 56 12/27/2013 8:29 AM EDT Temperature 36.7 ??C (98.1 ??F) 12/27/2013 8:29 AM ED T Respiratory Rate 16 12/27/2013 8:29 AM EDT Oxygen Saturation 100% 12/27/2013 8:29 AM EDT Inhaled Oxygen Concentration - - Weight 53.5 kg (118 lb) 12/27/2013 6:55 AM EDT Height 170.2 cm (5' 7) 12/27/2013 6:55 AM EDT Body Mass Index 18.48 12/27/2013 6:55 AM EDT documented in this encounter Discharge Instructions * Discharge Instructions* Noemy Duong RN - 12/27/2013 7:20 AM EDT Rest today. Tylenol if needed for headache. For questions/concerns about today's ECT treatment call: After 5pm/weekends call and ask for residential roofer helper on-call. documented in this encounter Medications at [...] as of this encounter H&P Notes * Ricardo Pryor - 12/27/2013 7:26 AM EDT HPI: Aziza Tamez is a 53 y.o. female who has been prescribed ECT. Pertinent history changes since last H&P: None Suicidal ideation: Denies. Homicidal ideation: Denies. ROS: All systems were reviewed and there were no significant complaints except for HAs. PE: Patient Vitals for the past 8 hrs: BP Temp Pulse Resp SpO2 Height Weight 12/27/13 0655 123/75 mmHg 36.4 ??C (97.5 ??F) 56 16 99 % 170.2 cm (5' 7) 53.524 kg (118 lb) Gen: Resting comfortably in hospital bed, dressed in hospital gown. Pulm: Clear to auscultation bilaterally with good inspiratory effort. CV: Regular rate and rhythm, no murmurs/gallops/rubs. Abd: Soft, NTTP. Remaining exam WNL. A/P: - I have seen and examined the patient. - Proceed with planned ECT procedure. documented in this encounter Procedure Notes * Brandie Rios MD - 12/27/2013 7:43 AM EDTProcedure(s): ECT Pre-Procedure Diagnose(s): Major depressive disorder, recurrent episode, severe, without mention ofpsychotic behavior ECT SUBSEQUENT TREATMENT NOTE Patient received right-unilateral ECT in the PACU. Course type: maintenance The primary diagnosis is 296.33. Interval history: Plan to decrease ECT frequency for the summer, will receive ketamine today per discussion with her provider. Patient was attached to monitoring equipment. The anesthesia team administered the following medications: Ketamine 50mg Methohexital 30 mg succinylcholine 60 mg Labetalol 10mg ECT parameters: RUL 0.3/40/5/800 30 second motor seizure 58 second EEG seizure Patient was stabilized and appeared to tolerate the procedure. Complications: none Changes/recommendations for next treatment: none Next treatment date: 01/24, 02/21, 03/21, 04/18/2014 Route note to: Dr. Alon Davis documented in this encounter Miscellaneous Notes * Miscellaneous - Provider, Scanning - 12/27/2013 6:58 PM EDT * Miscellaneous - Provider, Scanning - 12/27/2013 4:07 PM EDT documented in this encounter Plan of Treatment Not on file documented as of this encounter Procedures Procedure Name Priority Date/Time Associated Diagnosis Comments ECT (WRVU 2.5) 12/27/2013 7:37 AM EDT 296.33 documented in this encounter Visit Diagnoses Not on filedocumented in this encounter Administered Medications Inactive Administered Medications - up to 3 most recent administrations Medication Order MAR Action Action Date Dose Rate Site acetaminophen (TYLENOL) tablet 650 mg 650 mg, Oral, EVERY 6 HOURS PRN, Starting on Velia 12/27/13 at 0728, Until Velia 12/27/13 at 1212, Pain, Fever, Headaches, Maximum dose of acetaminophen is 4000 mg from all sources in 24 hours., Routine Given 12/27/2013 7:30 AM EDT 650 mg documented in this encounter Active and Recently Administered Medications Times are shown in EDT. PRN Medication Order 12/25/2013 12/26/2013 12/27/2013 acetaminophen (TYLENOL) tablet 650 mg (CANCELED) 650 mg, Oral, EVERY 6 HOURS PRN, Starting on Velia 12/27/13 at 0728, Until Velia 12/27/13 at 1212, Pain, Fever, Headaches, Maximum dose of acetaminophen is 4000 mg from all sources in 24 hours., Routine 0730 (Given - [facility] er: Noemy Duong RN) documented in this encounter Care Teams Bag Grader Relationship Specialty Start Date End Date Liang Deluca MD [address] [place] [address] [place] [address] PCP - General 07/14/10 09/29/15 documented as of this encounter
--- OUTSIDE RECORDS SUMMARY | 2024-04-12 11:19 | XMS_ITS | Encounter Summary ---
Author Organization [facility] [place] [address] Care Team Providers Care Planning And Analysis Manager Name Role Phone Liang Deluca MD Primary Care Provider Encounter Details Date Type Department Care Team ([facility] Contact Info) Description 11/29/2013 Telephone Psychiatry [place] [phone] Kar Pollock RN Social History Tobacco Use [...] Telephone Encounter - Kar Pollock RN - 12/20/2013 7:45 AM EDT At 7:50 AM on , 12/20/13 this life insurance underwriter left a voicemail letting this patient's provider: Dr. Alon Davis, [address] [place] [address] know this patient's last scheduled ECT is 12/27/13 () and asking for a call back at [phone] if more ECT should be scheduled. * Telephone Encounter - Kar Pollock RN - 11/30/2013 1:20 PM EDT At 12:25 PM on 11/30/13 this pt left a voicemail stating she can't get a ride to ECT next week. She stated she meets with Dr. Davis 12/10 and asked that her next ECT be scheduled for 12/10. She said to call back [phone]. At 1:25 PM on 11/30/13 this life insurance underwriter left a voice mail with Dr. Davis relaying the above information. At 1:25 PM on 11/30/13 this life insurance underwriter left a voicemail confirming (at [phone]) confirmingthat she has been added to the ECT schedule on 12/11. * Telephone Encounter - Kar Pollock RN - 11/29/2013 3:35 PM EDT At 2:19 PM on , 11/29/13 Dr. João Manning called stating he had just talked with Dr. Davis and they both agreed this pt should be scheduled for another ECT next week (with ketamine). Dr. Pratt asked that this life insurance underwriter call Aziza to schedule another ECT for sometime next week. At 3:37 PM on , 11/29/13 this life insurance underwriter left a voice mail for this pt ([phone]) requesting a call back ([phone]) confirming which Tuesday- she would like to set up an appointment (for ECT). documented in this encounter Plan of Treatment Not on file documented as of this encounter Visit Diagnoses Not on filedocumented in this encounter Care Teams Planning And Analysis Manager Relationship Specialty Start Date End Date Liang Deluca MD [address] [place] [address] [place] [address] PCP - General 07/14/10 09/29/15 documented as of this encounter
--- OUTSIDE RECORDS SUMMARY | 2024-04-12 11:19 | XMS_ITS | Encounter Summary ---
Author Organization [facility] [place] [address] Care Team Providers Care Event Specialist Product Demonstrator Name Role Phone Liang Deluca MD Primary Care Provider [phone] Encounter Details Date Type Department Care Team (Late st Contact Info) Description 12/10/2013 Telephone Psychiatry [place] [phone] Kar Pollock RN Social History Tobacco Use [...] Telephone Encounter - Kar Pollock RN - 12/10/2013 4:04 PM EDT At 4:05 PM on 12/10/13 this newswriter left a voice mail with this pt ([phone]) asking to clarify and confirm when her next scheduled ECT is 12/11 () or 12/13 (). This newswriter requested acall back at [phone]. documented in this encounter Plan of Treatment Not on file documented as of this encounter Visit Diagnoses Not on filedocumented in this encounter Care Teams Event Specialist Product Demonstrator Relationship Specialty Start Date End Date Liang Deluca MD [address] [place] [address] [place] [address] PCP - General 07/14/10 09/29/15 documented as of this encounter
--- OUTSIDE RECORDS SUMMARY | 2024-04-12 11:19 | XMS_ITS | Encounter Summary ---
Author Organization [facility] [place] [address] Care Team Providers Care Dehydrator Tender Name Role Phone Liang Deluca MD Primary Care Provider [phone] [phone] Encounter Details Date Type Department Care Team (Late st Contact Info) Description 12/13/2013 Telephone Psychiatry [place] [phone] Kar Pollock, RN Social History Tobacco Use Types Packs/Day [...] Telephone Encounter - Kar Pollock RN - 01/08/2014 1:56 PM EDT At 9:36 AM on 01/08/14 Dr. Alon Davis called to thank this engineering writer for the communicationsabout this patient. He stated when he met with this pt they they talked about her getting ketamine without first having a conversation about it. He reported he thought it was a mistake to decrease her dose of zoloft from 200 mg to 150 mg and that this medication is going to be increased back up to 2 00 mg. He stated she typically does better in the summer and plans to take the summer off from ECT.He also stated her TSH mild showed hypertyroid for which she has had an ultrasound of her thyroid. She still is still taking cytomel per Dr. Davis's report. * Telephone Encounter - Kar Pollock RN - 01/07/2014 12:31 PM EDT At 8:29 AM on , 01/03/14 this pt called asking if something different was added this last time see had ECT (on the previous ). She stated she had a difficult time coming out of anesthesia and asked if something different was added to her IV. She reported feeling dizzy with nausea and stated it felt like it took a couple of days to come out of it. She commented I wish(having ketamine added) was discussed and explained to me. She was encouraged to discuss this with Dr. Daviswhen she sees him 01/07/14. She clearly stated she does NOT want ketamine again.She also made it clear that she doesn't want toradol. She reported 3 ECT back she was given toradol for a headache she stated the toradol caused edi reaction and made her horrible headache worse. She stated she would like to get tylenol ?1000 mg prior to ECT. This engineering writer stated her wishes for: 1. NO Ketamine 2. NO Toradol 3. Tylenol ?1000 mg pre-ECT Would be clearly noted (in her IP Snapshot). When this engineering writer asked how she was otherwise she responded doing good... It just took a couple of days (to come out of it after her last ECT)... Very good. * Telephone Encounter - Kar Pollock RN - 01/02/2014 9:08 AM EDT At 6:55 AM on 01/02/14 this pt left a voice mail asking for a call back at [phone].She stated the purpose of this call was to discuss concerns from her last ECT, last . She requested this call be made after 9 AM At 9:11 AM on 01/02/14 this engineering writer left a voice mail at [phone]. At 9:22 AM on 01/02/14 this pt left another voice mail stating she was outside when thiswriter called earlier today. She said she would carry her phone with her. She said she'd appreciatea call back. At 10:47 AM on 01/02/14 this engineering writer called this pt at [phone] and left another voice mail letting her know she can call back at [phone]. * Telephone Encounter - Kar Pollock RN - 12/21/2013 10:54 AM EDT At 8:50 AM on 12/21/13 Dr. Davis ([phone]) left a voice mail stating he didn't have this pt's chart right in front of him, so he wasn't sure what frequency this pt has been getting ECT.He stated ECT should continue to be scheduled at the same frequency. At 8:56 AM on 12/21/13 [address] engineering writer called Dr. Davis ([phone]) and confirmed this pt should be scheduled for ECT every 4 weeks thru March. * Telephone Encounter - Kar Pollock RN - 12/21/2013 8:19 AM EDT At 8:19 AM on 12/21/13 this engineering writer left a voice mail with this pt's provider, Dr. Alon Davis, [address] [place] [address] informing him that this patient last scheduledECT is this December 27. This engineering writer also mentioned she is planning to see him on Sunday 01/07. This engineering writer requested a call back at [phone]. * Telephone Encounter - Kar Pollock RN - 12/13/2013 8:03 AM EDT At 2:22 PM on 12/12/13 this patient called and stated she had ECT 12/11/13, so she is not planning on coming for ECT this , 12/13/13. She confirmed her next scheduled ECT is 12/27/13 () and stated she has an appointment to see Dr. Davis on 01/07/14. documented in this encounter Plan of Treatment Not on file documented as of this encounter Visit Diagnoses Not on filedocumented in this encounter Care Teams Dehydrator Tender Relationship Specialty Start Date End Date Liang Deluca MD [address] [place] [address] [place] [address] PCP - General 07/14/10 09/29/15 documented as of this encounter
--- OUTSIDE RECORDS SUMMARY | 2024-04-12 11:19 | XMS_ITS | Encounter Summary ---
Author Organization [facility] [place] [address] Care Team Providers Care Export Documents Clerk Name Role Phone Liang Deluca MD Primary Care Provider [phone] Encounter Details Date Type Department Care Team (Late st Contact Info) Description 10/23/2013 Telephone Psychiatry [place] [phone] Kar Pollock, RN Social History Tobacco Use [...] Telephone Encounter - Kar Pollock RN - 10/25/2013 3:07 PM EST At 12:08 PM on , 10/25/13 Dr. Davis ([phone]) called and said today would be this pt's last biweekly ECT. He said the plan for this pt is to schedule her her monthly ECT after today's ECT. At 3:10 PM on , 10/25/13 this copywriter called pt at [phone] (S) to confirm her ECT schedule. This pt reported she got tramadol d/t having pretty bad headaches after her last few ECTs. She stated she felt shaky as she woke up from today's treatment. She said she napped this afternoon. When this copywriter asked about scheduling her next ECT for 11/22 (), she said she doesn't want to have ECT that day because it's her son's birthday and she plans to go visit him that day. She was agreeable to scheduling her next ECT on 11/21 () and stated she would call back if transportation was an issue. She stated her next appointment with Dr. Davis is 12/10/13. * Telephone Encounter - Kar Pollock RN - 10/25/2013 9:29 AM EST At 9:28 AM on , 10/25/13 this copywriter left another voicemail for Dr. Davis ([phone]) asking for a return call to this copywriter ([phone]) to specify when he would like this pt to be treated with ECT again. * Telephone Encounter - Kar Pollock RN - 10/23/2013 12:49 PM EST At 12:49 PM on 10/23/13 a voice mail was left with Dr. Davis [phone] informing him that this patient's last scheduled ECT is 10/25/13. This copywriter asked that Dr. Davis call [phone] if he'd like to extend this ECT schedule. documented in this encounter Plan of Treatment Not on file documented as of this encounter Visit Diagnoses Not on filedocumented in this encounter Care Teams Export Documents Clerk Relationship Specialty Start Date End Date Liang Deluca MD [address] [place] [address] [place] [id number] PCP - General 07/14/10 09/29/15 documented as of this encounter
--- OUTSIDE RECORDS SUMMARY | 2024-04-12 11:19 | XMS_ITS | Encounter Summary ---
Author Organization [facility] [place] [address] Care Team Providers Care Reroller Hand Name Role Phone Liagn Deluca MD Primary Care Provider [phone] Encounter Details Date Type Department Care Team (Late st Contact Info) Description 11/15/2013 Telephone Psychiatry [place] [phone] Kar Pollock, RN Social History Tobacco Use [...] Telephone Encounter - Kar Pollock RN - 11/22/2013 8:20 AM EDT At 3:34 PM on 11/21/13 this pt left a voicemail ([phone]) asking for a call back before the end of the day to confirm her 11/29 ECT appointment. At 8:09 AM on , 11/22/13 this pt left a voicemail ([phone]) asking for a call back to confirm her 11/29 ECT appointment. At 8:14 AM on , 11/22/13 this loan underwriter left a voicemail at [phone] confirming her 11/29 and 12/27/13 ECT appointment. * Telephone Encounter - Kar Pollock RN - 11/20/2013 11:37 AM EDT At 12:40 PM on 11/20/13 this loan underwriter left a voicemail for this pt at [phone] (B) to confirm her ECT appointments (11/29/13 and 12/27/13). * Telephone Encounter - Kar Pollock RN - 11/20/2013 7:17 AM EDT At 4:12 PM on 11/19/13 Dr. Davis left a voicemail conveying the following information: *It's ok to reschedule this week's ECT to 11/29. *He stated they had discussed continuing with maintenance ECT on a monthly basis. And he requested she be scheduled for monthly ECT. *He stated he hasn't seen her since August (appointments have been cancled due to weather). He did indicate he's been in touch with her via phone. He said he plans to meet with her on 12/10. *He asked for a return phone if this loan underwriter sees her and she feels any differently about having ECTscheduled every month to let him know. Of note Aziza's QIDS scores for the past month: Date QIDS Score 09/27/13 5 10/11/13 7 10/25/13 9 * Telephone Encounter - Kar Pollock RN - 11/19/2013 8:28 AM EDT At 8:38 AM on 11/19/13 this loan underwriter called Dr. Davis ([phone]) left a voice mail with Dr. Davis informing him of this pt's ECT cancelation and asking for approval to re-schedule ECT forthis pt to 11/29/13. He was also asked to let this loan underwriter ([phone]) know if this pt should be scheduled for anymore ECT (as 11/21/13 was the last day she was scheduled to get ECT). * Telephone Encounter - Kar Pollock RN - 11/15/2013 3:43 PM EDT At 12:10 PM on , 11/15/13 this pt called ([phone]) stating she will not be able to make it to the ECT appointment scheduled 11/21/13 due to not having a ride. She requested this treatment be rescheduled to the following week (11/29/13) when her sister can drive her. At 2:49 PM on , 11/15/13 this loan underwriter left a voice mail with Dr. Davis informing him of theabove and asking for approval to re-schedule ECT for this pt to 11/29/13. documented in this encounter Plan of Treatment Not on file documented as of this encounter Visit Diagnoses Not on filedocumented in this encounter Care Teams Reroller Hand Relationship Specialty Start Date End Date Liang Deluca MD [address] [place] [address] [place] [address] PCP - General 07/14/10 09/29/15 documented as of this encounter
--- OUTSIDE RECORDS SUMMARY | 2024-04-12 11:19 | XMS_ITS | Encounter Summary ---
Author Organization [facility] [place] [address] Care Team Providers Care Dba Manager Name Role Phone Liang Deluca MD Primary Care Provider Encounter Details Date Type Department Care Team (Late st Contact Info) Description 10/25/2013 8:55 AM EST Anesthesia Event [place] [id number] Clinton Nair MD [facility] [place] [address] Esha Cody CRNA [facility] [place] [address] Anesthesia Record Procedure Summary Procedure Name Responsible Anesthesiologist Anesthesia Start Time Anesthesia Stop Time ECT (WRVU 2.5) Clinton Nair MD 10/25/13 0855 10/25 0905 Events Date Time Event Comment 10/25/2013 0855 AN Verify 0855 Start 0855 An Start Data 0855 ASA Monitors 0855 Masked Placed/ Pre O2 0859 An Induction 0859 Bite Block In 0901 ECT Rx 0905 PACU Bed 0905 an stop data 09 Stop 0929 Meds Name Total methohexital 80 mg succinylcholine 60 mg ketorolac 25 mg lactated ringers 100 mL * Agents Name O2 Auxiliary Flowmeter 1 * Blood No blood administrations on file. Lines, Drains, and Airways Type Details Placement Removal (RETIRED) Peripheral IV Line - Single Lumen 10/25/13; 0725; 10/25/13; 0946 10/25/13 0725 by Sarah Queevdo RN 10/25/13 0946 by Sarah Quevedo RN documented in this encounter Social History Tobacco Use Types Packs/Day Years Used Date Smoking Tobacco: Never Alcohol Use Standard Drinks/Week Comments Yes 5 (1 standard drink = 0.6 oz pur e alcohol) interminttent Sex and Gender Information Value Date Recorded Sex Assigned at Not on file Gender Identity Not on file Sexual Orientation Not on file documented as of this encounter OR Notes * Anesthesia Postprocedure Evaluation - Clinton Nair MD - 10/25/2013 9:28 AM EST Patient: Aziza Tamez Procedure(s) Performed: Procedure(s): ECT Actual Anesthetic: No value filed. Patient location: PACU Post-op pain: Adequate analgesia Post-op nausea: no nausea or vomiting Last Vitals: Filed Vitals: 10/25/13 0920 BP: 126/73 Pulse: 51 Temp: Resp: 16 Post-op cardiovascular and respiratory status: is stable Level of consciousness: awake, alert and oriented Complications: no apparent complications and tolerated the procedure well Fluid Status: normal * Anesthesia Preprocedure Evaluation - Clinton Nair MD - 10/25/2013 7:13 AM EST Pre-Anesthesia Evaluation for: Aziza Tamez a 52 y.o. female. Procedure(s): ECT Patient Active Problem List Diagnosis ??? Generalized anxiety disorder ??? Recur major depress, severe ??? MDD (major depressive disorder), recurrent episode, severe Past Medical History Diagnosis Date ??? Irritable bowel syndrome ??? Depression ??? Anxiety Past Surgical History Procedure Date ??? Electroconvulsive therapy,1 seiz 08/17/2013 ECT performed by Brandie Rios MD at [facility] ??? Electroconvulsive therapy,1 seiz 08/20/2013 ECT performed by Jeremy Condon MD at [facility] ??? Electroconvulsive therapy,1 seiz 08/21/2013 ECT performed by Mitchell Bunch MD at [facility] ??? Electroconvulsive therapy,1 seiz 08/23/2013 ECT performed by Brandie Rios MD at [facility] ??? Electroconvulsive therapy,1 seiz 08/30/2013 ECT performed by Jeremy Condon MD at [facility] ??? Electroconvulsive therapy,1 seiz 09/06/2013 ECT performed by Jeremy Condon MD at [facility] ??? Electroconvulsive therapy,1 seiz 09/27/2013 ECT performed by Jeremy Condon MD at [facility] ??? Electroconvulsive therapy,1 seiz 10/11/2013 ECT performed by Jeremy Condon MD at [facility] History Substance Use Topics ??? Smoking status: Never Smoker ??? Smokeless tobacco: Not on file ??? Alcohol Use: 3.0 oz/week 5 Glasses of wine per week Comment: interminttent History Drug Use No Allergies Allergen Reactions ??? Latex CIS - HIVES ??? Sulfa (Sulfonamide Antibiotics) CIS - Hives ??? Gloves, Latex ??? Trazodone headache ??? Lactose Intolerance (Lactase) Diarrhea Medications: MAR and/or home medications have been reviewed. Physical Exam: There were no vitals filed for this visit. There is no height or weight on file to calculate BMI. Anesthesia Physical Exam Anesthesia Plan: ASA 3 general, with a(n) intravenous induction ketolac 25 mg added to regimen for dinero Region - Other Informed Consent: Anesthetic plan and risks discussed with patient. Plan discussed with USER SUPPORT ANALYST SUPERVISOR. [facility] Assessment: documented in this encounter Plan of Treatment Not on file documented as of this encounter Visit Diagnoses Not on filedocumented in this encounter Administered Medications Inactive Administered Medications - up to 3 most recent administrations Medication Order MAR Action Action Date Dose Rate Site ketorolac (TORADOL) injection PRN, Starting on Velia 10/25/13 at 0845, Until Velia 10/25/13 at 0905, Pain, Anesthesia Intra-op, Routine Given 10/25/2013 8:45 AM EST 25 mg lactated ringers infusion CONTINUOUS PRN, Starting on Velia 10/25/13 at 0856, Until Velia 10/25/13 at 0905, Anesthesia Intra-op New Bag 10/25/2013 8:56 AM EST mL methohexital (BREVITAL) injection PRN, Starting on Velia 10/25/13 at 0845, Until Velia 10/25/13 at 0905, Anesthesia Intra-op, Routine Given 10/25/2013 8:45 AM EST 80 mg succinylcholine (ANECTINE) injection PRN, Starting on Velia 10/25/13 at 0845, Until Velia 10/25/13 at 0905, Anesthesia Intra-op, Routine Given 10/25/2013 8:45 AM EST 60 mg documented in this encounter Care Teams Dba Manager Relationship Specialty Start Date End Date Liang Deluca MD [address] [place] [id number] PCP - General 07/14/10 09/29/15 documented as of this encounter
--- OUTSIDE RECORDS SUMMARY | 2024-04-12 11:19 | XMS_ITS | Encounter Summary ---
Author Organization [facility] [id number] Care Team Providers Care Carbon Furnace Operator Name Role Phone Keily Larose APRN Primary Care Provider + Reason for Referral * Diagnostic Test (Routine) - Closed Specialty Diagnoses / Procedures Referred By Contac t Referred To Contact Radiology Diagnoses Migraine without aura and without status migrainosus, not intractable Procedures MRI Brain wwo Contrast (Generic) Cathy Silva APRN [facility] [place] [address] [place] [address] Referral ID Status Reason Start Date Expiration Date V isits Requested Visits Authorized [id number] Closed Specialty Service Requested 07/05/2018 07/05/2019 2 2 Reason for Visit * Diagnostic Test (Routine) - Closed Specialty Diagnoses / Procedures Referred By Contac t Referred To Contact Radiology Diagnoses Migraine without aura and without status migrainosus, not intractable Procedures MRI Brain wwo Contrast (Generic) Cathy Silva APRN [facility] [place] [address] [place] [address] Referral ID Status Reason Start Date Expiration Date V isits Requested Visits Authorized [id number] Closed Specialty Service Requested 07/05/2018 07/05/2019 2 2 Encounter Details Date Type Department Care Team (Latest Contact Info) Description 08/04/2018 8:22 AM EST Hospital Encounter MRI at [facility] [place] [address] Cathy Silva APRN [facility] DR [facility] [address] Migraine without aura and without status migrainosus, not intractable Discharge Disposition: Home Social History Tobacco Use [...] mg Tablet Every 12 hours. 03/15/2018 09/06/2022 vilazodone (VIIBRYD) 40 mg Tablet Take 40 mg by mouth daily. 05/19/2021 busPIRone (BUSPAR) 10 mg Tablet Take 10 mg by mouth nightly. 11/20/2021 lamoTRIgine (LAMICTAL) 100 mg Tablet Take 200 mg by mouth daily. 01/18/2022 UNABLE TO FIND Take 15 mg by mouth daily. Med Name: Methylpro 01/17/2019 loratadine (CLARITIN) 10 mg Tablet Take 10 mg by mouth daily. 11/20/2021 docusate sodium (COLACE) 50 mg Capsule Take by mouth nightly. 11/20/2021 hydrOXYzine (ATARAX) 10 mg TabletIndications:Migr breann without aura and without status migrainosus, not intractable 1 tablet at onset of mild to moderate headache. Can repeat in 8-10 hours 30 tablet 2 03/15/2018 11/20/2021 SUMAtriptan (IMITREX) 100 mg Tablet Take 1 tablet by mouth as needed for Migraine. 9 tablet 2 03/15/2018 01/17/2019 rizatriptan (MAXALT) 10 mg TabletIndications:Migr breann without aura and without status migrainosus, not intractable 1 at onset of migraine, can repeat in 2 hours, max 2/24 hours, NTE 05/21 days 9 tablet 2 03/15/2018 11/20/2021 busPIRone (BUSPAR) 15 mg Tablet Take 15 mg by mouth 2 times daily. 01/17/2019 documented as of this encounter Progress Notes * Sanam Bose, RN - 08/04/2018 10:42 AM EST MRI PRE-SEDATION ASSESSMENT NOTE NAME: Aziza Tamez AGE: 57 y.o. : 1960 [address] [facility] [address] Female [phone] (home) [phone] (work) Telephone Information: Keily Larose APRN No primary care provider on file. Allergies Allergen Reactions ??? Latex Hives ??? Sulfa (Sulfonamide Antibiotics) Hives ??? Trazodone Other (See Comments) headache ??? Lactose Intolerance [Lactase] Diarrhea Date/Time of call: August 04, 2018/10:42 AM/ PREVIOUS MRI SCAN? Yes HEIGHT: 5'6.5 WEIGHT: SCHEDULED SCAN: MRI BRAIN WWO CONTRAST [CCQ140] (60 mins, head first, supine) SUBJECTIVE: I have panic attacks in closed in areas CAN YOU LAY FLAT? No AIRWAY ISSUES? No DO YOU HAVE ANY INVOLUNTARY MOVEMENTS? No DO YOU HAVE ANY PAIN? No DO YOU TAKE PAIN MED ON A DAILY BASIS? No ASSESSMENT: Appropriate for PO sedation PLAN: Ativan 1-2 mg PO ( mp ) You must have a pile driver operator barge mounted present when you check in. This patient has been informed that they require a pile driver operator barge mounted to drive them home after this procedure. In the absence of a pile driver operator barge mounted, IR will not be able to sedate for your scan. Pt verbalized understanding of these instructions during the pre-procedure education via phone. Yes [place] of pile driver operator barge mounted: Phone number PRIOR SCAN DATE/S SEDATION TYPE SUCCESSFUL 25 years ago none 12/14/18 MRI of brain Ativan 1 mg x 2 po yes Revised 01/17/18 * Sanam Bose RN - 08/02/2018 8:55 AM EST MRI PRE-SEDATION ASSESSMENT NOTE NAME: Aziza Tamez AGE: 57 y.o. : 1960 [address] [facility] [address] Female [phone] (home) [phone] (work) Telephone Information: Keily Larose APRN No primary care provider on file. Allergies Allergen Reactions ??? Latex Hives ??? Sulfa (Sulfonamide Antibiotics) Hives ??? Trazodone Other (See Comments) headache ??? Lactose Intolerance [Lactase] Diarrhea Date/Time of call: August 01, 2018/8:24 AM/ PREVIOUS MRI SCAN? Yes HEIGHT: 5'6.5 WEIGHT: SCHEDULED SCAN: MRI BRAIN WWO CONTRAST [[id number]] (60 mins, head first, supine) SUBJECTIVE: I have panic attacks in closed in areas CAN YOU LAY FLAT? No AIRWAY ISSUES? No DO YOU HAVE ANY INVOLUNTARY MOVEMENTS? No DO YOU HAVE ANY PAIN? No DO YOU TAKE PAIN MED ON A DAILY BASIS? No ASSESSMENT: Appropriate for PO sedation PLAN: Ativan 1-2 mg PO ( mp ) You must have a pile driver operator barge mounted present when you check in. This patient has been informed that they require a pile driver operator barge mounted to drive them home after this procedure. In the absence of a pile driver operator barge mounted, IR will not be able to sedate for your scan. Pt verbalized understanding of these instructions during the pre-procedure education via phone. Yes [place] of pile driver operator barge mounted: Phone number PRIOR SCAN DATE/S SEDATION TYPE SUCCESSFUL 25 years ago none 08/04/18 MRI of brain Ativan 1 mg x 2 po Revised 01/17/18 documented in this encounter Plan of Treatment Not on file documented as of this encounter Procedures Procedure Name Priority Date/Time Associated Diagnosis Comments MRI BRAIN WWO CONTRAST (GENERIC) Routine 08/04/2018 10:29 AM EST Migraine without aura and without status migrainosus, not intractable documented in this encounter Results * MRI Brain wwo Contrast (Generic) (08/04/2018 10:29 AM EST) Anatomical Region Laterality Modality Head Magnetic Resonan ce Impressions 08/04/2018 10:37 AM EST No intracranial mass or other acute intracranial abnormality. Narrative 08/04/2018 10:37 AM EST EXAMINATION: MRI BRAIN WWO CONTRAST (GENERIC) CLINICAL HISTORY: worsening migraine severity and intensity; change in pattern TECHNIQUE: MRI of the brain was performed before and after the intravenous administration of 11cc Dotarem. COMPARISON: None FINDINGS: The ventricles are normal in size and contour. There is no intracranial mass, mass effect, or shift. There are a few very small areas of nonspecific T2 signal alteration the white matter, a common nonspecific finding. Diffusion images are normal. There is no mass or abnormal enhancement. No focal marrow lesion. Posterior fossa structures, and craniocervical junction are normal. Procedure Note London Rodriguez MD - 08/04/2018 EXAMINATION: MRI BRAIN WWO CONTRAST (GENERIC) CLINICAL HISTORY: worsening migraine severity and intensity; change inpattern TECHNIQUE: MRI of the brain was performed before and after the intravenousadministration of 11cc Dotarem. COMPARISON: None FINDINGS: The ventricles are normal in size and contour. There is no intracranialmass, mass effect, or shift. There are a few very small areas of nonspecific [id number] alteration the white matter, a common nonspecific finding. Diffusionimages are normal. There is no mass or abnormal enhancement. No focal marrowlesion. Posterior fossa structures, and craniocervical junction are normal. IMPRESSION No intracranial mass or other acute intracranial abnormality. 10:37 AM Cathy Damon Ricardo JARVIS IMG MRI ORDERABLES documented in this encounter Visit Diagnoses Diagnosis Migraine without aura and without status migrainosus, not intractable Migraine without aura, without mention of intractable migraine without mention of status migrainosus documented in this encounter Administered Medications Inactive Administered Medications - up to 3 most recent administrations Medication Order MAR Action Action Date Dose Rate Site LORazepam (ATIVAN) tablet 1 mg 1 mg, Oral, EVERY 30 MIN PRN, Starting on Tue08/04/18 at 0757, Until 08/05/18 at 0438, Anxiety, Angio/IR (Day of Procedure), Routine Given 08/04/2018 9:22 AM EST 1 mg Given 08/04/2018 8:35 AM EST 1 mg documented in this encounter Care Teams Carbon Furnace Operator Relationship Specialty Start Date End Date Keily Larose APRN [address] [place] [address] , [address] [place] [address] PCP - General Family Medicine 09/30/15 01/16/19 documented as of this encounter
--- OUTSIDE RECORDS SUMMARY | 2024-04-12 11:19 | XMS_ITS | Encounter Summary ---
Author Organization [facility] [place] [address] Care Team Providers Care Journal Box Inspector Name Role Phone Keily Larose APRN Primary Care Provider + Reason for Visit * Diagnostic Test (Routine) - Closed Specialty Diagnoses / Procedures Referred By Contac t Referred To Contact Radiology Diagnoses Migraine without aura and without status migrainosus, not intractable Procedures MRI Brain wwo Contrast (Generic) Cathy Silva APRN [facility] [place] [address] [place] [address] Referral ID Status Reason Start Date Expiration Date V isits Requested Visits Authorized [id number] Closed Specialty Service Requested 07/05/2018 07/05/2019 2 2 Encounter Details Date Type Department Care Team (Latest Contact Info) Description 08/04/2018 8:23 AM EST - 08/04/2018 11:[address] [facility] Hospital [place] [address] Cathy Silva TRAUMA NURSE [facility] [place] [address] Discharge Disposition: Home Social History Tobacco Use [...] daily. 01/17/2019 documented as of this encounter Plan of Treatment Not on file documented as of this encounter Procedures Procedure Name Priority Date/Time Associated Diagnosis Comments MRI BRAIN WWO CONTRAST (GENERIC) Routine 08/04/2018 10:29 AM EST Migraine without aura and without status migrainosus, not intractable documented in this encounter Visit Diagnoses Not on filedocumented in this encounter Administered Medications Inactive Administered Medications - up to 3 most recent administrations Medication Order MAR Action Action Date Dose Rate Site gadoterate meglumine (DOTAREM) 0.5 mmol/mL (376.9 mg/mL) injection 0-100 mL 0-100 mL, Intravenous, ONCE PRN, 1 dose, Starting on Tue08/04/18 at 0958, Until Tue08/04/18 at 0958, Per Protocol, Radiology Contrast, Routine Given 08/04/2018 9:58 AM EST 11 mLs documented in this encounter Care Teams Journal Box Inspector Relationship Specialty Start Date End Date Keily Larose APRN [address] [place] [address] , [address] [place] [address] PCP - General Family Medicine 09/30/15 01/16/19 documented as of this encounter
--- OUTSIDE RECORDS SUMMARY | 2024-04-12 11:19 | XMS_ITS | Encounter Summary ---
Author Organization [facility] [place] [address] Care Team Providers Care Waste Specialist Name Role Phone Liang Deluca MD Primary Care Provider Encounter Details Date Type Department Care Team (Late st Contact Info) Description 09/27/2013 9:05 AM EST Anesthesia Event [place] [id number] Quirino Diaz MD [facility] [address] [place] [address] Anesthesia Record Procedure Summary Procedure Name Responsible Anesthesiologist Anesthesia Start Time Anesthesia Stop Time ECT (WRVU 2.5) Quirino Diaz MD 09/27/13 0905 02/02 0919 Events Date Time Event Comment 09/27/2013 0722 0905 AN Verify 0905 Start 0905 An Start Data 0905 ASA Monitors 0907 Masked Placed/ Pre O2 0907 An Induction 0913 Bite Block In 0913 ECT Rx 0915 PACU Bed 0919 an stop data 0919 Stop Meds Name Total methohexital 80 mg succinylcholine 60 mg * Agents Name O2 Auxiliary Flowmeter 1 * Blood No blood administrations on file. Lines, Drains, and Airways Type Details Placement Removal (RETIRED) Peripheral IV Line - Single Lumen 09/27/13; 0734; 09/27/13; 1007 09/27/13 0734 by Alon Wheatley RN 09/27/13 1007 by Casandra Salazar RN documented in this encounter Social History [...] OR Notes * Anesthesia Postprocedure Evaluation - Quirino Diaz MD - 09/27/2013 9:24 AM EST Patient: Aziza Tamez Procedure(s) Performed: Procedure(s): ECT Actual Anesthetic: No value filed. Patient location: PACU Post-op pain: Adequate analgesia Post-op nausea: no nausea or vomiting Last Vitals: Filed Vitals: 09/27/13 0919 BP: Pulse: 60 Temp: Resp: 12 Post-op cardiovascular and respiratory status: is stable Level of consciousness: awake, alert and oriented Complications: no apparent complications and tolerated the procedure well Fluid Status: normal * Anesthesia Preprocedure Evaluation - Quirino Diaz MD - 09/26/2013 4:57 PM EST Pre-Anesthesia Evaluation for: Aziza Tamez a 52 y.o. female. Patient Active Problem List Diagnosis ??? Generalized anxiety disorder ??? Recur major depress, severe ??? MDD (major depressive disorder), recurrent episode, severe Past Medical History Diagnosis Date ??? Irritable bowel syndrome ??? Depression ??? Anxiety Past Surgical History Procedure Date ??? Electroconvulsive therapy,1 seiz 08/17/2013 ECT performed by Brandie Rios MD at [facility] MAIN OR ??? Electroconvulsive therapy,1 seiz 08/20/2013 ECT performed by Jeremy Condon MD at [facility] MAIN OR ??? Electroconvulsive therapy,1 seiz 08/21/2013 ECT performed by Mitchell Bunch MD at [facility] MA[facility] OR ??? Electroconvulsive therapy,1 seiz 08/23/2013 ECT performed by Brandie Rios MD at [facility] MAIN OR ??? Electroconvulsive therapy,1 seiz 08/30/2013 ECT performed by Jeremy Condon MD at [facility] MA[facility] OR ??? Electroconvulsive therapy,1 seiz 09/06/2013 ECT performed by Jeremy Condon MD at [facility] MA[facility] OR History Substance Use Topics ??? [...] or weight on file to calculate BMI. 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 [facility]. Assessment: documented in this encounter Miscellaneous Notes * Addendum Note - Quirino Diaz MD - 09/27/2013 9:50 AM EST * Addendum Note - Quirino Diaz MD - 09/27/2013 9:50 AM EST documented in this encounter Plan of Treatment Not on file documented as of this encounter Visit Diagnoses Not on filedocumented in this encounter Administered Medications Inactive Administered Medications - up to 3 most recent administrations Medication Order MAR Action Action Date Dose Rate Site methohexital (BREVITAL) injection PRN, Starting on Velia 09/27/13 at 0909, Until Velia 09/27/13 at 0919, Anesthesia Intra-op, Routine Given 09/27/2013 9:09 AM EST 80 mg succinylcholine (ANECTINE) injection PRN, Starting on Velia 09/27/13 at 0909, Until Velia 09/27/13 at 0919, Anesthesia Intra-op, Routine Given 09/27/2013 9:09 AM EST 60 mg documented in this encounter Care Teams Waste Specialist Relationship Specialty Start Date End Date Liang Deluca MD [address] [place] [address] [place] [address] PCP - General 07/14/10 09/29/15 documented as of this encounter
--- OUTSIDE RECORDS SUMMARY | 2024-04-12 11:19 | XMS_ITS | Encounter Summary ---
Author Organization [facility] [place] [address] Care Team Providers Care Digital Controls Technical Officer Name Role Phone Betty Lazo APRN Primary Care Provider + Reason for Referral * Physical Therapy (Routine) - Specialty Diagnoses / Procedures Referred By Contac t Referred To Contact Physical Therapy Diagnoses Dyspareunia Megha Lundberg MASSEUR/MASSEUSE [facility] [place] [address] Referral ID Status Reason Start Date Expiration Date V isits Requested Visits Authorized [id number] Evaluate and Treat 10/16/2015 04/13/2016 12 12 Reason for Visit * Reason Comments Establish Care Vaginal Pain pelvic pressure Encounter Details Date Type Department Care Team (Late st Contact Info) Description 10/16/2015 11:00 AM EST Office Visit Obstetrics [place] [address] Megha Lundberg MASSEUR/[facility] [place] [address] Dyspareunia Social History Tobacco Use Types Packs/Day Years [...] Sign Reading Time Taken Comments Blood Pressure 102/68 10/16/2015 11:05 AM EST Pulse - - Temperature - - Respiratory Rate - - Oxygen Saturation - - Inhaled Oxygen Concentration - - Weight 54.9 kg (121 lb) 10/16/2015 11:05 AM EST Height 166.4 cm (5' 5.5) 10/16/2015 11:05 AM ES T Body Mass Index 19.83 10/16/2015 11:05 AM EST documented in this encounter Progress Notes * Megha Lundberg APRN - 10/16/2015 11:06 AM EST Female Pelvic Medicine and Reconstructive Surgery @ [facility] Patient Name: Aziza Tamez Patient Primary Care Provider: BETTY LAZO APRN Patient Active Problem List Diagnosis Code ??? MDD (major depressive disorder), recurrent episode, severe F33.2 ??? Recur major depress, severe F33.2 ??? Generalized anxiety disorder F41.1 ??? Pelvic pressure syndrome N94.89 ??? Dyspareunia N94.1 ??? History of menorrhagia Z87.42 ??? Alopecia L65.9 ??? Fatigue R53.83 ??? Cold intolerance R68.89 ??? Poor sleep pattern G47.8 ??? Headache(784.0) R51 ??? Hot flashes N95.1 ??? Night sweats R61 ??? Irritable bowel syndrome with diarrhea K58.0 ??? Depression F32.9 ??? OFELIA (generalized anxiety disorder) F41.1 ??? Constipation K59.00 ??? Diarrhea R19.7 ??? Dyschezia K59.00 ??? Family history of diabetes mellitus Z83.3 ??? Postmenopausal Z78.0 Chief Complaint: During episodes of IBS has trouble with urinary retention. Also has dyspareunia and pelvic pressure. [place] is painful, has cramping with IBS and then has trouble with urinating, and sometimes ishard to differentiate between the 3 things. Some issues with urinary retention with bad IBS. IB tends to be more constipation than diarrhea. History of Present Illness: Ms. Tamez is a 54 y.o. old para 1, , woman, seen at the request of Jeronimo Adames. Aziza controls her IBS with diet and exercise- goes through cycles of times when things are worst orbetter., bad last summer into the fall. Since then this has gotten better. [place] became painful last spring and early summer- mostly with deep motions. Before this , sex was comfortable, with the same partner for many years. Hx of anorexia , with overuse of laxatives in the past, does not use now. Goals for this visit 1. Help with dyspareunia, and pelvic pain Urinary tract history Patient has had a history of recurrent urinary tract infection- as a child, none recently Patient denies history of pyelonephritis. Patient denies history of urinary tract abnormality. Patient denies history of nephrolithiasis. Patient denies history of hematuria. Bladder irritants: Fluid intake: drinks a lot of water Caffeine intake: 2 cups of coffee/day Cigarette smoking (packs, time, if quit when): no Alcohol: social, glass of wine 3-4 times a week Bladder Function Urinary incontinence: yes No. episodes: Only when sick and coughing Pad use (per day): none Pad type: none Daytime voids: 10 Nocturia: 0 Previous urinary incontinence treatment (Medical/Behavioral/Surgical): no Storage symptoms Urinary frequency Nocturia rare Stress urinary incontinence - leakage with exertion, cough/sneeze Urge urinary incontinence - leakage preceded immediately by urge to void Noctural enuresis - NOT IN ASSOCIATION WITH URGE Continuous urinary leakage Other: (e,g. giggle, intercourse-related) Bladder sensation x Normal - aware of filling and increased sensation up to desire to void Increased - feels an early and persistent need to void Reduced - aware of filling but NOT definite desire to void Absent - NO sensation of filling or need to void Non-specific - No specific bladder symptoms during filling or void Voiding symptoms x None Slow stream Spraying Intermittent stream - stop/start on > 1 occasion during void Straining - muscular effort to initiate, maintain OR improve stream Terminal dribble - prolonged final part of void Feeling of incomplete emptying Pelvic Organ Prolapse (POP) Any personally see or feel a vaginal bulge? yes What precipitates prolapse or symptoms of prolapse? no Previous treatment for POP (physical therapy, pessary, surgery)?: no Bowel Function Fecal incontinence (yes/no): no Number of fecal incontinent episodes (day/week): none Number of bowel movements (day/week): Varies with IBS- usually every couple of days Defecatory Dysfunction: Symptom Presence Symptom Presence NONE Incomplete Emptying x Straining x Infrequent stools (<3 week) x Splinting x Abdominal discomfort x Loose stools Defecatory urgency Hard stools x Other Sexual Function Active?: yes Pain with intercourse?: yes If yes, insertional/Deep? deep Desire to retain sexual function? yes Past Medical History Diagnosis Date ??? Irritable bowel syndrome ??? Depression ??? Anxiety Past Surgical History Procedure Laterality Date ??? Electroconvulsive therapy,1 seiz 08/17/2013 ECT performed by Brandie Rios MD at [facility] OR ??? Electroconvulsive therapy,1 seiz 08/20/2013 ECT performed by Jeremy Condon MD at [facility] OR ??? Electroconvulsive therapy,1 seiz 08/21/2013 ECT performed by Mitchell Bunch MD at [facility] OR ??? Electroconvulsive therapy,1 seiz 08/23/2013 ECT performed by Brandie Rios MD at [facility] OR ??? Electroconvulsive therapy,1 seiz 08/30/2013 ECT performed by Jeremy Condon MD at [facility] OR ??? Electroconvulsive therapy,1 seiz 09/06/2013 ECT performed by Jeremy Condon MD at [facility] OR ??? Electroconvulsive therapy,1 seiz 09/27/2013 ECT performed by Jeremy Condon MD at [facility] OR ??? Electroconvulsive therapy,1 seiz 10/11/2013 ECT performed by Jeremy Condon MD at [facility] OR ??? Electroconvulsive therapy,1 seiz 10/25/2013 ECT performed by Robert Gabriel MD at [facility] OR ??? Electroconvulsive therapy,1 seiz 11/29/2013 ECT performed by João Pratt MD at [facility] OR ??? Electroconvulsive therapy,1 seiz 12/11/2013 ECT performed by Mick De Leon MD at [facility] OR ??? Electroconvulsive therapy,1 seiz 12/27/2013 ECT performed by Brandie Rios MD at [facility] MAIN OR Outpatient Prescriptions Marked as Taking for the 10/16/15 encounter (Office Visit) with Megha Lundberg APRN Medication Sig Dispense Refill ??? busPIRone (BUSPAR) 15 mg Tablet Take 15 mg by mouth 2 times daily. ??? LACTOBACILLUS ACIDOPHILUS (PROBIOTIC ORAL) Take by mouth daily. ??? mirtazapine (REMERON) 30 mg tablet Take 1 tablet by mouth nightly. Indications: Major Depressive Disorder 30 tablet 0 ??? sertraline (ZOLOFT) 100 mg tablet Take 2 tablets by mouth daily. Indications: Major Depressive Disorder 60 tablet 0 Allergies Allergen Reactions ??? Latex CIS - HIVES ??? Sulfa (Sulfonamide Antibiotics) CIS - Hives ??? Trazodone headache ??? Lactose Intolerance [Lactase] Diarrhea History Social History ??? Marital Status: Spouse Name: N/A Number of Children: N/A ??? Years of Education: N/A Occupational History ??? Not on file. Social History Main Topics ??? Smoking status: Never Smoker ??? Smokeless tobacco: Never Used ??? Alcohol Use: 3.0 oz/week 5 Glasses of wine per week Comment: interminttent ??? Drug Use: No ??? Sexual Activity: Partners: Male Control/ Protection: Post-menopausal, Surgical Other Topics Concern ??? Not on file Social History Narrative Family history: denies history of gynecologic cancer ROS: Review of all other systems negative except for those mentioned above or indicated below: System Symptom Presence Constitutional Weight Loss Weight gain Eyes History of glaucoma ENT/Mouth Mouth sores/Dry mouth x Cardiovascular Chest pain Leg swelling Respiratory Wheezing SOB GI Nausea/vomiting With IBS Abdominal pain With IBS Skin/Breast Breast masses Rash/ulcer Musculoskeletal Muscle weakness Trouble Walking Neurological Dizziness/falling Numbness Psychiatric Depression x Anxiety x Endocrine Abnormal thirst Hot flashes Once in a while Hematologic Frequent bruising History of blood transfusions no Blood clots (DVT / PE) no Prior problems w/ anesthesia Yes- hard to wake up Outside medical records reviewed: yes- previous ultrasound and notes from Dr. Varma mason liner and Data reviewed (images/urodynamic studies): To further delineate patient's urinary symptoms, a urinedip test and postvoid residual via bladder scanner were obtained. PVR was 0 cc OBJECTIVE: LMP 09/30/2013 General: normal appearing female, pleasant mood, normal speech Skin: skin of abdomen/pelvis normal Musculoskeletal:, 5 levator tenderness; lower extremity motor 5/5 bilaterally- Aziza was had so muchburning with exam , that I was not able to examine her very well today. She has c/o burning after introital area was touched, brent at 6 ,12 and 9, with one finger exam, tenderness on levator ani muscles, felt burning on all surfaces, triggered her and even after she was dressed, she was burning, too uncomfortable to sit for drive home, given Emla cream. Not able to examine any further today Impression: Ms. Tamez is a .54 y.o. woman with: ?? Pelvic floor dysfunction, dyspareunia, vulvodynia ?? Hx of IBS that when severe can cause issues with urination. Recommendations: Based on the patients expressed goals for management I have recommended the following: ?? Referral to Dr. Garrett for dyspareunia and vulvodynia. ?? Referral to PT un in [facility] with Rachel Rosales. ?? Lidocaine ointment several times a day to introital opening I spent 50 minutes total with the patient, with 40 minutes of the time spent [id number] in discussing her diagnosis and reviewing options for treatment. ( ) ACOG or other informational pamphlets given to patient MEGHA LUNDBERG APRN Division of Female Pelvic Medicine/Reconstructive Surgery CC: MATHEUS MARTIN Adames documented in this encounter Miscellaneous Notes * Addendum Note - Alvin Oakes LNA - 10/16/2015 1:18 PM ESTAddended by: ALVIN OAKES on: 10/16/2015 01:18 PM Modules accepted: Orders documented in this encounter Plan of Treatment Scheduled Referrals Name Type Priority Associated Diagnoses Orde r Schedule Referral to Physical Therapy Outpatient Referral Routine Dyspareunia Ordered: 10/16/2015 documented as of this encounter Visit Diagnoses Diagnosis Dyspareunia documented in this encounter Care Teams Digital Controls Technical Officer Relationship Specialty Start Date End Date Betty Lazo APRN [address] [place] [address] [address] [place] [address] PCP - General Family Medicine 09/30/15 01/16/19 documented as of this encounter
--- OUTSIDE RECORDS SUMMARY | 2024-04-12 11:19 | XMS_ITS | Encounter Summary ---
Author Organization [facility] [place] [address] Care Team Providers Care Wrapper Layer Name Role Phone Liang Deluca MD Primary Care Provider [phone] Encounter Details Date Type Department Care Team ([facility] Contact Info) Description 05/02/2014 Telephone Psychiatry [place] [phone] Kar Pollock RN Social History Tobacco Use [...] Telephone Encounter - Kar Pollock RN - 05/22/2014 10:48 AM EDT At 10:49 AM on 05/22/14 this literary writer left a voice mail for Dr. Alon Davis, [address] [place] [address] requesting a call back as follow up to see if he wants to schedule this pt for ECT: ? 05/28 () ? 06/11 () ? 07/09 () * Telephone Encounter - Kar Pollock RN - 05/09/2014 11:18 AM EDT At 10:27 AM on , 05/02/14 Dr. Davis called and will get back to this literary writer after he meetswith this pt on 05/14 and talks with her more abut restarting ECT. * Telephone Encounter - Kar Pollock RN - 05/02/2014 10:02 AM EDT At 10:05 AM on , 05/02/14 this literary writer left a voice mail with Dr. Alon Davis [phone] asking for confirmation/ approval of this pt's ECT schedule: 1. 05/14/14 () 2. ? 05/28 () 3. ? 06/11 () 4. ? 07/09 () At 11:55 AM on 04/23/14 Dr. Alon Davis [phone] stated this pt ([phone]) is doing well and wants to resume maintenance ECT HUGO. He said he'd like her to be scheduled for biweekly then monthly ECT. He'd like to schedule her for 05/14/14. He stated he would talk with the pt first. documented in this encounter Plan of Treatment Not on file documented as of this encounter Visit Diagnoses Not on filedocumented in this encounter Care Teams Wrapper Layer Relationship Specialty Start Date End Date Liang Deluca MD [address] [place] [address] [place] [address] PCP - General 07/14/10 09/29/15 documented as of this encounter
--- OUTSIDE RECORDS SUMMARY | 2024-04-12 11:19 | XMS_ITS | Encounter Summary ---
Author Organization Formerly [facility] [place] [address] Care Team Providers Care Institutional Research Director Name Role Phone Liang Deluca MD Primary Care Provider Encounter Details Date Type Department Care Team (Late st Contact Info) Description 10/11/2013 7:49 AM EST Anesthesia Event [place] [phone] Sachi Gutiérrez MD [facility] DR [place] [address] Anesthesia Record Procedure Summary Procedure Name Responsible Anesthesiologist Anesthesia Start Time Anesthesia Stop Time ECT (WRVU 2.5) Sachi Gutiérrez MD 10/11/13 0749 0809 Events Date Time Event Comment 10/11/2013 0731 0749 Start 0751 An Start Data 0755 AN Verify 0755 ASA Monitors 0756 Masked Placed/ Pre O2 0757 An Induction 0757 Bite Block In 0758 ECT Rx 0802 PACU Bed 0807 an stop data 0809 Stop Meds Name Total methohexital 80 mg succinylcholine 60 mg * Agents Name O2 Auxiliary Flowmeter 1 * Blood No blood administrations on file. Lines, Drains, and Airways Type Details Placement Removal (RETIRED) Peripheral IV Line - Single Lumen 10/11/13; 0710; 10/11/13; 0844 10/11/13 0710 by Cathy Leary RN 10/11/13 0844 by Yudi Hdez RN documented in this encounter Social History [...] OR Notes * Anesthesia Postprocedure Evaluation - Sachi Gutiérrez MD - 10/11/2013 8:14 AM EST Patient: Aziza Tamez Procedure(s) Performed: Procedure(s): ECT Actual Anesthetic: general Patient location: PACU Post-op pain: Adequate analgesia Post-op nausea: no nausea or vomiting Last Vitals: Filed Vitals: 10/11/13 0806 BP: 103/73 Pulse: 57 Temp: Resp: 12 Post-op cardiovascular and respiratory status: is stable Level of consciousness: awake, alert and oriented Complications: no apparent complications and tolerated the procedure well Fluid Status: normal Tolerated procedure well. Sachi Gutiérrez MD * Anesthesia Preprocedure Evaluation - Sachi Gutiérrez MD - 10/11/2013 7:30 AM EST Pre-Anesthesia Evaluation for: Aziza Tamez [...] ECT performed by Brandie Rios MD at [facility] MAIN OR ??? Electroconvulsive therapy,1 seiz 08/20/2013 ECT performed by Jeremy Condon MD at [facility] MAIN OR ??? Electroconvulsive therapy,1 seiz 08/21/2013 ECT performed by Mitchell Bunch MD at [facility] MA[facility] OR ??? Electroconvulsive therapy,1 seiz 08/23/2013 ECT performed by Brandie Rios MD at [facility] MA[facility] OR ??? Electroconvulsive therapy,1 seiz 08/30/2013 ECT performed by Jeremy Condon MD at [facility] MA[facility] OR ??? Electroconvulsive therapy,1 seiz 09/06/2013 ECT performed by Jeremy Condon MD at [facility] MA[facility] OR ??? Electroconvulsive therapy,1 seiz 09/27/2013 ECT performed by Jeremy Condon MD at [facility] MA[facility] OR History Substance Use Topics [...] ASA 3 general, with a(n) intravenous induction Plan for GA. NPO status okay. No recent illness. Region - Other Informed Consent: Anesthetic plan and risks discussed with patient. Plan discussed with attending and FIRM ADMINISTRATOR. [facility]. Assessment: documented in this encounter Plan of Treatment Not on file documented as of this encounter Visit Diagnoses Not on filedocumented in this encounter Administered Medications Inactive Administered Medications - up to 3 most recent administrations Medication Order MAR Action Action Date Dose Rate Site methohexital (BREVITAL) injection PRN, Starting on Velia 10/11/13 at 0756, Until Velia 10/11/13 at 0813, Anesthesia Intra-op, Routine Given 10/11/2013 7:56 AM EST 80 mg succinylcholine (ANECTINE) injection PRN, Starting on Velia 10/11/13 at 0755, Until Velia 10/11/13 at 0813, Anesthesia Intra-op, Routine Given 10/11/2013 7:55 AM EST 60 mg documented in this encounter Care Teams Institutional Research Director Relationship Specialty Start Date End Date Liang Deluca MD [address] [place] [address] [place] [address] PCP - General 07/14/10 09/29/15 documented as of this encounter
--- OUTSIDE RECORDS SUMMARY | 2024-04-12 11:19 | XMS_ITS | Encounter Summary ---
Author Organization Formerly [facility] [place] [address] Care Team Providers Care Vp Home Health Name Role Phone Keily Larose APRN Primary Care Provider + Encounter Details Date Type Department Care Team (Latest Contact Info) Description 10/16/2015 10:00 AM EST Procedure visit Obstetrics [place] [address] Jeronimo Adames MD [facility] DR OBSTETRICS [place] [address] Pelvic pressure syndrome; Dyspareunia; Irritable bowel syndrome with diarrhea; Constipation, unspecified constipation type; Diarrhea; Dyschezia; Postmenopausal Social History Tobacco Use Types Packs/Day Years Used Date Smoking Tobacco: Never Smokeless Tobacco: Never Alcohol Use Standard Drinks/Week Comments Yes 5 (1 standard drink = 0.6 oz pur e alcohol) interminttent Sex and Gender Information Value Date Recorded Sex Assigned at Not on file Gender Identity Not on file Sexual Orientation Not on file documented as of this encounter Progress Notes * Jeronimo Adames MD - 10/16/2015 11:10 AM EST Established Gynecology CONSULTATION REPRODUCTIVE [facility]ICINE AND INFERT[facility] [place], [place] Candida Lucio MD IVF/ART Loans Consultant MD Paige Cardoso MD Elizabeth Todd, ARNP Donna Bedard, Program [place] CHIEF COMPLAINT: Pelvic pressure, dyspareunia Subjective: The patient is a 54 y.o. with pelvic pressure, who is here for a pelvic ultrasound. - I first met this patient on 09/30/15; please see my prior note for further details. In brief, patient has had pelvic pressure, dyspareunia, dysmenorrhea, fatigue, alopecia, headaches, hot flashes/night sweats, cold intolerance, IBS, major depression, and generalized anxiety disorder. Patient Active Problem List Diagnosis Code ??? [...] of diabetes mellitus Z83.3 ??? Postmenopausal Z78.0 Past Medical History Diagnosis Date ??? Irritable bowel syndrome ??? Depression ??? Anxiety ??? Pelvic pain ??? Dyspareunia Past Surgical History Procedure Laterality Date ??? Electroconvulsive therapy,1 seiz 08/17/2013 ECT performed by Brandie Rios MD at [facility] ??? Electroconvulsive therapy,1 seiz 08/20/2013 ECT performed by Jeremy Condon MD at [facility] ??? Electroconvulsive therapy,1 seiz 08/21/2013 ECT performed by Mitchell Bunch MD at [facility] ??? Electroconvulsive therapy,1 seiz 08/23/2013 ECT performed by Brandie Rios MD at [facility] ??? Electroconvulsive therapy,1 seiz 08/30/2013 ECT performed by Jeremy Condon MD at [facility] ??? Electroconvulsive therapy,1 seiz 09/06/2013 ECT performed by Jeremy Condon MD at [facility] ??? Electroconvulsive therapy,1 seiz 09/27/2013 ECT performed by Jeremy Condon MD at [facility] ??? Electroconvulsive therapy,1 seiz 10/11/2013 ECT performed by Jeremy Condon MD at [facility] ??? Electroconvulsive therapy,1 seiz 10/25/2013 ECT performed by Robert Gabriel MD at [facility] ??? Electroconvulsive therapy,1 seiz 11/29/2013 ECT performed by João Pratt MD at [facility] OR ??? Electroconvulsive therapy,1 seiz 12/11/2013 ECT performed by Mick De Leon MD at [facility] ??? Electroconvulsive therapy,1 seiz 12/27/2013 ECT performed by Brandie Rios MD at [facility] OR ??? Inguinal hernia repair Right 2009 ??? Laparoscopy 1996 scar tissue/ adhesions Current Outpatient Prescriptions on File Prior to Visit Medication Sig Dispense Refill ??? lidocaine (XYLOCAINE) 2 % Gel Apply topically 3 times daily. 30 mL 2 ??? busPIRone (BUSPAR) 15 mg Tablet Take 15 mg by mouth 2 times daily. ??? LACTOBACILLUS ACIDOPHILUS (PROBIOTIC ORAL) Take by mouth daily. ??? mirtazapine (REMERON) 30 mg tablet Take 1 tablet by mouth nightly. Indications: Major Depressive Disorder 30 tablet 0 ??? sertraline (ZOLOFT) 100 mg tablet Take 2 tablets by mouth daily. Indications: Major Depressive Disorder 60 tablet 0 Current Facility-Administered Medications on File Prior to Visit Medication Dose Route Frequency Provider Last Rate Last Dose ??? lactated ringers infusion Continuous PRN Kasey Ames MD Objective: There were no vitals filed for this visit. Physical exam deferred today, as she is here for an ultrasound follow-up visit. Ultrasound today (10/16/2015): 54 y/o with pelvic pressure, dyspareunia, and [...] cm. - No free fluid was visualized. Assessment: 1.) Dyspareunia 2.) Fibroids on CT scan 3.) IBS, including constipation, diarrhea, and dyschezia 4.) Urinary symptoms + vaginismus 5.) Suspected endometriosis:?? pelvic pressure, dyspareunia, history of dyspareunia - Given the extensive 40-minute discussion that I had with the patient at her last visit, I [facility] and gave it to her to take home, as a review of her history, and myproposed treatment plan for her. I had a 15-minute visit with this patient today, with 100% spent in [id number] counselling with regard to the following issues: (a) Dyspareunia - At her prior visit, we had reviewed the [employer] informational handout on when sex is painful. - Patient had notes that pap smears are painful for her, which is suggestive of vaginismus. - Patient also noted vaginal dryness, and she does use lubrication (intermittently) for this. - Patient also noted some deep pain, which I reviewed may be conssitent with endometriosis, tumors,bowel/bladder disease, ovarian cysts, or uterine problems.?? We will plan a pelvic ultrasound to rule out a nefarious etiology for her pain. - Patient was encouraged to review this booklet, especially the behavioral recommendations. - Today, I reviewed the points above. (b) Fibroids on CT scan - At her prior visit, we had briefly reviewed the [employer] informational handout on uterine fibroids. - Patient reported that she is not concerned about her history of fibroids. - Today, I reviewed that her ultrasound today shows a normal uterus and ovaries, and a tiny 1.3 cm fibroid. - I also noted that her prior ultrasound is not accessible in our EMR, and even our ultrasonographers are unable to access any images from her prior ultrasound. (c) IBS, including constipation, diarrhea, and dyschezia - I again encouraged patient to continue follow-up with Dr. Henry from GI ([place], [place]) (d) Urinary symptoms + vaginismus - At her last visit, patient reported I have pressure to urinate, but I am unable to. - UroGyn consult had been recommended and accepted by patient. - Today, patient has a f/u appointment with UroGyn. - Patient also asked about using premarin. She notes that it has been 2 years since menopause. We then discussed the benefits and risks of hormone therapy, including: - the risk of stroke and DVT/PE with either estrogen or estrogen + progestin replacement; - the benefits of decreased osteoporosis, decreased risk of fracture, and decreased menopausal symptoms with either estrogen or with estrogen + progestin; - the risk of endometrial cancer with unopposed estrogen; - the decrease in the risk of endometrial cancer with estrogen + progestin; - the decrease in the risk of colon cancer with estrogen + progestin; - the increased risk of breast cancer with estrogen + progestin; - the age-associated risk of coronary heart disease with estrogen + progestin I also noted the benefit of topical or transdermal estrogen, for a lower risk of stroke or DVT thanoral estrogen. However, given that she has been 2 years after menopause, I would not recommend starting premarin at this time. However, she will speak with Rachel Walters from UroGyn today for a second opinion about other options for vaginal dryness in [employer] women. Plan: 1.) Follow-up with UroGyn today. 2.) Follow-up with GI prn. 3.) Follow-up with me in 6-12 months, or prn. All questions answered. Visit time 15 minutes, with 100% of that time spent in direct [id number] counselling of patient and her mother. JERONIMO ADAMES MD 10/16/2015 5:39 PM documented in this encounter Plan of Treatment Not on file documented as of this encounter Visit Diagnoses Diagnosis Pelvic pressure syndrome Pelvic congestion syndrome Dyspareunia Irritable bowel syndrome with diarrhea Irritable bowel syndrome Constipation, unspecified constipation type Diarrhea Dyschezia Unspecified constipation Postmenopausal Asymptomatic postmenopausal status (age-related) (natural) documented in this encounter Care Teams Vp Home Health Relationship Specialty Start Date End Date Keily Larose APRN [address] [place] [address] [address] [place] [address] PCP - General Family Medicine 09/30/15 01/16/19 documented as of this encounter
--- OUTSIDE RECORDS SUMMARY | 2024-04-12 11:19 | XMS_ITS | Encounter Summary ---
Author Organization [facility] [place] [address] Care Team Providers Care Delivery Director Name Role Phone Keily Larose APRN Primary Care Provider + Reason for Visit * Reason Onset Date Comments Medication Refill 03/15/2018 Encounter Details Date Type Department Care Team (Late st Contact Info) Description 03/15/2018 [place] [address] Cathy Silva AUTOMATION [employer]S INSTRUCTOR [facility] [place] [address] Migraine without aura and without status migrainosus, [...] migrainosus documented in this encounter Care Teams Delivery Director Relationship Specialty Start Date End Date Keily Larose APRN [address] [place] [address] , [facility] [address] [place], [place] [id number] PCP - General Family Medicine 09/30/15 01/16/19 documented as of this encounter
--- OUTSIDE RECORDS SUMMARY | 2024-04-12 11:19 | XMS_ITS | Encounter Summary ---
[place] [address] Care Team Providers Care Oil Pumper Name Role Phone Keily Larose APRN Primary Care Provider + Reason for Referral * Diagnostic Test (Routine) - Closed Specialty Diagnoses / Procedures Referred By Contac t Referred To Contact Radiology Diagnoses Migraine without aura and without status migrainosus, not intractable Procedures MRI Brain wwo Contrast (Generic) Cathy Silva APRN [facility] [place] [address] [place] [address] Referral ID Status Reason Start Date Expiration Date V isits Requested Visits Authorized [id number] Closed Specialty Service Requested 07/05/2018 07/05/2019 2 2 Reason for Visit * Reason Onset Date Comments Other 07/05/2018 Encounter Details Date Type Department Care Team (Late st Contact Info) Description 07/05/2018 [place] [address] Cathy Silva APRN [facility] [place] [address] Other Social History Tobacco Use Types Packs/Day Years [...] encounter Miscellaneous Notes * Telephone Encounter - Vianey Jaramillo RN - 07/05/2018 8:30 AM EST Internal MRI brain with and without contrast ordered per request. * Telephone Encounter - Eli Larios - 07/05/2018 8:06 AM EST Clinical Adult Health Clinical Nurse Specialist Message Caller: Maryam If not Pt / Relation to pt: [facility] Rad[facility] Call back Number: [phone] Best time to reach caller: anytime Reason for call: MRI Order change Message/information for the nurse: MRI Brain WWO Contrast is currently listed as an external order.Please re-enter as internal order as patient would like to have it done here at [facility] and they are holding a date of 07/12 for her Disposition of Call Routine Message sent to the Nurse documented in this encounter Plan of Treatment Not on file documented as of this encounter Results * MRI Brain wwo [...] a few very small areas of nonspecific [id number] alteration the white matter, a common nonspecific finding. Diffusionimages are normal. There is no mass or abnormal enhancement. No focal marrowlesion. Posterior fossa structures, and craniocervical junction are normal. IMPRESSION No intracranial mass or other acute intracranial abnormality. 10:37 AM Cathy Silva APRN [facility] MRI ORDERABLES documented in this encounter Visit Diagnoses Diagnosis Migraine without aura and without status migrainosus, not intractable Migraine without aura, without mention of intractable migraine without mention of status migrainosus Migraine without aura and without status migrainosus, not intractable Migraine without aura, without mention of intractable migraine without mention of status migrainosus documented in this encounter Care Teams Oil Pumper Relationship Specialty Start Date End Date Keily Larose APRN [address] [place] [address] [address] [place] [address] PCP - General Family Medicine 09/30/15 01/16/19 documented as of this encounter
--- OUTSIDE RECORDS SUMMARY | 2024-04-12 11:19 | XMS_ITS | Encounter Summary ---
Author Organization [facility] [place] [address] Care Team Providers Care Warehouse General Laborer Name Role Phone Liang Deluca MD Primary Care Provider [phone] Encounter Details Date Type Department Care Team (Late st Contact Info) Description 12/27/2013 8:00 AM EDT - 12/27/2013 8:15 AM EDT [place] [id number] Brandie Rios MD [facility] [place] [address] ECT (WRVU 2.5) Social History Tobacco Use [...] Sign Reading Time Taken Comments Blood Pressure 132/89 12/27/2013 8:10 AM EDT Pulse 62 12/27/2013 8:10 AM EDT Temperature 36.4 ??C (97.5 ??F) 12/27/2013 6:55 AM ED T Respiratory Rate 17 12/27/2013 8:10 AM EDT Oxygen Saturation 100% 12/27/2013 8:10 AM EDT Inhaled Oxygen Concentration - - [...] call: After 5pm/weekends call and ask for sales and marketing vice president on-call. documented in this encounter [...] in 24 hours., Routine 0730 (Given - [facility] er: Noemy Duong RN) documented in this encounter Care Teams Warehouse General Laborer Relationship Specialty Start Date End Date Liang Deluca MD [address] [place] [address] [place] [address] PCP - General 07/14/10 09/29/15 documented as of this encounter
--- OUTSIDE RECORDS SUMMARY | 2024-04-12 11:19 | XMS_ITS | Encounter Summary ---
[place] [address] Care Team Providers Care Building Associate Name Role Phone Keily Larose APRN Primary Care Provider + Reason for Visit * Reason Comments Headache * Consultation (Routine) - Closed Specialty Diagnoses / Procedures Referred By Contac t Referred To Contact Neurology Diagnoses chronic cluster type headaches Keily Larose APRN [address] [place] [address] , [address] [place] [address] [facility] [address] [place] [address] Referral ID Status Reason Start Date Expiration Date V isits Requested Visits Authorized [id number] Closed Consult, Test & Treat Connection [facility] 02/10/2018 02/10/2019 1 1 Encounter Details Date Type Department Care Team (Late st Contact Info) Description 03/15/2018 10:00 AM EDT [place] [phone] Cathy Silva APRN [facility] [place] [address] Migraine without aura and without status migrainosus, [...] Sign Reading Time Taken Comments Blood Pressure 127/72 03/15/2018 9:21 AM EDT Pulse 52 03/15/2018 9:21 AM EDT Temperature - - Respiratory Rate - - Oxygen Saturation - - Inhaled Oxygen Concentration - - Weight 56.7 kg (125 lb) 03/15/2018 9:21 AM EDT r eported Height 168.9 cm (5' 6.5) 03/15/2018 9:21 AM EDT reported Body Mass Index 19.87 03/15/2018 9:21 AM EDT documented in this encounter Patient Instructions * Patient Instructions* Cathy Silva APRN - 03/15/2018 10:00 AM EDT Office Number: ([facility] Queved[facility] - [place]) Clinic nurse number for most issues and prescription refills (Jeimy) ([place]) For Prescription Refills: Please call for refills when you have one month left on your medication, we have 48 hours from the time you call to get the medication refill placed. Please call the clinic rather then using [employer]- or e-mail, as the communication is better in real time. Thank you and I look forward to working with you. Book: Understanding Your Migraines: A Guide for Patients and Families 1st Edition by Ethan Rubi and Rito Galan Keep your Calendar and bring them to your appointment please. Diagnosis: Episodic Migraine - Keep a Headache diary - Labs: Vit B12, Vit D, ESR, CBC, CMP - MRI brain with and without contrast - Discontinue: discontinue sumatriptan - For prevention: Vit B2 200-400mg per day Magnesium 200-250mg am and pm - For mild to moderate LUX Naproxen sodium 550mg BID PRN Vistaril 10 mg BID PRN - For severe LUX Rizatriptan 10mg 1 tablet at onset and can repeat in 2 hours. Max 2/24 hours. NTE 2 times per week Can be taken with or without Vistaril 10mg and Naproxen Follow-up with PASCUAL Ross-SEB, MANAGER SCIENCE in 3 month CHRISTINA Ross APRN [facility] Neurology, Headache Clinic documented in this encounter Progress Notes * Cathy Silva APRN - 03/15/2018 10:00 AM EDT Images from the original note were not included. Neurology Headache Clinic Initial Consultation Patient name: Aziza Tamez Date of : 1960 PCP: Keily Larose APRN CC: Headache I have been asked to see Aziza Tamez in consultation by Keily Larose for her c/o Headaches in my capacity as Headache Medicine Specialist. HPI: Aziza Tamez is a 57 y.o. right-handed [...] prior to and during foster care Psych: GABRIEL, MDD Previous work-up: X-Ray of cervical spine Contraception: post menopausal Medications tried: sumatriptan No h/orenal stones Past Medical History: Past Medical History: Diagnosis Date ??? Anxiety ??? Depression ??? Dyspareunia ??? Irritable bowel syndrome ??? Pelvic pain Medications: Current Outpatient Prescriptions Medication Sig Dispense Refill ??? vilazodone (VIIBRYD) 40 mg Tablet Take 40 mg by mouth daily. ??? busPIRone (BUSPAR) 10 mg Tablet Take 10 mg by mouth nightly. ??? lamoTRIgine (LAMICTAL) 100 mg Tablet Take 100 mg by mouth daily. ??? UNABLE TO FIND Take 15 mg by mouth daily. Med Name: Methylpro ??? SUMAtriptan (IMITREX) 100 mg Tablet Take 100 mg by mouth as needed for Migraine. ??? loratadine (CLARITIN) 10 mg Tablet Take 10 mg by mouth daily. ??? docusate sodium (COLACE) 50 mg Capsule Take by mouth nightly. ??? busPIRone (BUSPAR) 15 mg Tablet Take 15 mg by mouth 2 times daily. ??? mirtazapine (REMERON) 30 mg tablet Take 1 tablet by mouth nightly. Indications: Major Depressive Disorder 30 tablet 0 No current facility-administered medications for this visit. Facility-Administered Medications Ordered in Other Visits Medication Dose Route Frequency Provider Last Rate Last Dose ??? lactated ringers infusion Continuous PRN Kasey Ames MD Allergy: Allergies Allergen Reactions ??? Latex Hives ??? Sulfa (Sulfonamide Antibiotics) Hives ??? Trazodone Other (See Comments) headache ??? Lactose Intolerance [Lactase] Diarrhea Family History: Nieces with migraine. Social History: Social History Social History ??? Marital status: Spouse name: N/A ??? Number of children: N/A ??? Years of education: N/A Occupational History ??? Not on file. Social History Main Topics ??? Smoking status: Never Smoker ??? Smokeless tobacco: Never Used ??? Alcohol use 3.0 oz/week 5 Glasses of wine per week Comment: interminttent ??? Drug use: No ??? Sexual activity: Yes Partners: Male control/ protection: Post-menopausal, Surgical Other Topics Concern ??? 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 Review of systems: Constitutional: No fevers or chills Eyes: No vision changes, no diplopia, no blurry vision ENT: No rhinorrhea or pharyngitis, no meningismus CV: No chest pain or palpitations Resp: No cough, no shortness of breath GI: No nausea, vomiting, diarrhea or constipation : No dysuria, no incontinence Heme: No bleeding or bruising Endo: No diabetes or thyroid disease Neuro: See HPI Psych: depression, disrupted sleep, anxiety [x] Review of systems otherwise negative Testing: Cervical spine 02/06/18 Physical Exam: Most Recent Vitals: 03/15/18 0921 BP: 127/72 Pulse: 52 weight 125 Constitutional: well developed, well groomed, NAD HEENT: oral mucosa moist, no thrush, no carotid bruits, no thyromegaly, no lymphadenopathy Heart: RRR S1S2 no murmur Lungs: CTAB symmetric expansion Abd: soft, nontender, nondistended Ext: no edema, adequate pulses Neuro exam: [...] toe walk and tandem gait. Negative romberg. Labs: No results found for this or any previous visit (from the past 24 hour(s)). Diagnostic Tests and Imaging: MRI of brain with and without Gabriel Labs: Vit B12, Vit D, EST, CBC and CMP Assessment and plan: Episodic Migraine Headaches Aziza Tamez is a 57 y.o. right-handed female with a long history of headaches who has experienced an increase in frequency and intensity since menopause. She has a prodrome of feeling of fatigue prior to the onset of a severe occipital to frontal headache. She has some migrainous symptoms.She does have some arthritic changes on cervical spine x-ray. She is needing to repeat the dose of the sumatriptan 100% of the time and I believe that this is not as effective for her as I would likeit to be. Her migraine frequency is 3 times per month which I would like to hold off on any prophylactic medication but we can utilize supplements for migraine prevention. These are outlined below. Because of her age we will check blood work including a sed rate to rule out a vascular issue. We will check an MRI of the brain to rule out a structural cause such as a posterior fossa abnormality. - Keep a Headache diary - Labs: Vit B12, Vit D, ESR, CBC, CMP - MRI brain with and without contrast - Discontinue: discontinue sumatriptan - For prevention: Vit B2 200-400mg per day Magnesium 200-250mg am and pm - For mild to moderate LUX Naproxen sodium 550mg BID PRN Vistaril 10 mg BID PRN - For severe LUX Rizatriptan 10mg 1 tablet at onset and can repeat in 2 hours. Max 2/24 hours. NTE 2 times per week Can be taken with or without Vistaril 10mg and Naproxen documented in this encounter Plan of Treatment Not on file documented as of this encounter Procedures Procedure Name Priority Date/Time Associated Diagnosis Comments HEMOGRAM Routine 03/15/2018 11:50 AM EDT Migraine without aura and without status migrainosus, not intractable DIFFERENTIAL, AUTOMATED Routine 03/15/2018 11:50 AM EDT Migraine without aura and without status migrainosus, not intractable VITAMIN D, 25-HYDROXY Routine 03/15/2018 11:50 AM EDT Migraine without aura and without status migrainosus, not intractable SEDIMENTATION RATE Routine 03/15/2018 11 :50 AM EDT Migraine without aura and without status migrainosus, not intractable CBC (WITH DIFF) Routine 03/15/2018 11:50 AM EDT Migraine without aura and without status migrainosus, not intractable VITAMIN B12 Routine 03/15/2018 11:50 AM EDT Migraine without aura and without status migrainosus, not intractable COMPREHENSIVE METABOLIC PANEL Routine 03/15/2018 11:50 AM EDT Migraine without aura and without status migrainosus, not intractable documented in this encounter Results * Differential, Automated (03/15/2018 11:50 AM EDT) Neutrophil % 58.9 % [facility] Neutrophil Absolute 2.94 1.70 - 6.10 x10(3)/[facility] Lymph % 32.7 % [facility] Lymphocytes Abs 1.6 0.9 - 3.2 x10(3)/[facility] Monocyte % 6.4 % [facility] Monocyte Abs 0.3 0.3 - 0.9 x10(3)/[facility] Eos % 0.6 % [facility] Eosinophils Abs 0.0 0.0 - 0.4 x10(3)/[facility] Basophil % 1.2 % [facility] Baso Absolute 0.1 0.0 - 0.1 x10(3)/[facility] Immature Gran % 0.20 % [facility] Comment: Immature granulocytes(IG's)percentage and absolute count will include metamyelocytes, myelocytes, and promyelocytes. Blood smears from CBCs yielding IG's will be scanned manually for concordance. If this scan disagrees with the automated IG or if promyelocytes are noted, a manual differential will be performed. Immature Gran Absolute 0.01 0.00 - 0.04 x10(3)/[facility] Blood specimen (specimen) 03/15/2018 11:50 AM EDT 03/15/2018 11:56 AM EDT Narrative Resulting Agency Comment Spec In Lab Cathy Silva APRN HEMATOLOGY ORDERAB LES Performing Organization Address City/State/[facility] Co de Phone Number [facility] [place] [address] * (ABNORMAL) Hemogram (03/15/2018 11:50 AM EDT) White Blood Cell 5.0 4.0 - 9.5 x10(3)/[facility] Red Blood Cell 4.47 4.00 - 5.21 x10(6)/[facility] Hemoglobin 14.2 11.7 - 15.5 gm/dL [facility] Hematocrit 43.4 35.7 - 45.8 % [facility] Mean Cell Volume 97.1(H) 82.6 - 94.4 fL [facility] Mean Cell Hemoglobin 31.8 27.1 - 32.0 pg [facility] Mean Cell Hemoglobin Concentration 32.7 31.7 - 35.0 gm/dL [facility] Platelet 229 145 - 357 x10(3)/[facility] RDW Standard Deviation 44.1 37.0 - 46.0 fL [facility] RDW coefficient of variation 12.2 11.5 - 14.1 % [facility] Mean Platelet Volume 10.3 7.6 - 12.9 fL [facility] NRBC% auto 0.0 % [facility] NRBC Absolute 0.000 0.000 - 0.000 x10(3)/mc L [facility] Blood specimen (specimen) 03/15/2018 11:50 AM EDT 03/15/2018 11:56 AM EDT Narrative Resulting Agency Comment Spec In Lab Cathy Damon Ricardo JARVIS HEMATOLOGY ORDERAB LES Performing Organization Address City/[facility]/ZIP Co de Phone Number [facility] [place] [address] * Sedimentation rate (03/15/2018 11:50 AM EDT) Sedimentation Rate Automated 11 0 - 20 mm/hr [facility] Blood specimen (specimen) 03/15/2018 11:50 AM EDT 03/15/2018 11:56 AM EDT Narrative Resulting Agency Comment Spec In Lab Cathy Damon Ricardo JARVIS HEMATOLOGY ORDERAB LES Performing Organization Address City/[facility] Co de Phone Number [facility] [place] [address] * Comprehensive metabolic panel (non-fasting) (03/15/2018 11:50 AM EDT) Glucose 83 65 - 199 mg/dL [facility] Comment:Diabetes: >=200 mg/d L plus symptoms Blood Urea Nitrogen 15 8 - 18 mg/dL [facility] Creatinine 0.83 0.70 - 1.20 mg/dL [facility] Sodium 143 135 - 145 mmol/L [facility] Potassium 4.0 3.5 - 5.0 mmol/L [facility] Comment: Please note: ??Patients with WBC >100,000 may have falsely elevated Potassium levels. ??For accurate Potassium quantification in these patients send serum separator tube (gold top) for subsequent determinations. ??Contact the Clinical Chemistry Laboratory if there are any questions. Chloride 101 98 - 107 mmol/L [facility] Carbon Dioxide 27 22 - 31 mmol/L [facility] Anion Gap 15 5 - 15 mmol/L [facility] Calcium 9.9 8.5 - 10.5 mg/dL [facility] Protein, Total 7.7 6.1 - 8.0 gm/dL [facility] Albumin 4.5 3.2 - 5.2 gm/dL [facility] Aspartate Aminotransferase 19 0 - 30 unit/L [facility] Alanine Aminotransferase 17 0 - 30 unit/L [facility] Alkaline Phosphatase 47 40 - 104 unit/L [facility] Bilirubin, Total 0.5 0.2 - 1.3 mg/dL [facility] Est Glomerular Filtration Rate 78 >=60 mL/min/1. 73 m?? [facility] Comment: The eGFR was calculated using the CKD-EPI equation. As with all creatinine based estimates of kidney function, eGFR values calculated with the CKD-EPI equation are not accurate in patients with acute kidney failure, extremes of body mass or the acutely ill. http://[employer]kdep http://[employer]/DHMCnkf eGFR 90 >=60 mL/min/1. 73 m?? [facility] Comment: The eGFR was calculated using the CKD-EPI equation. As with all creatinine based estimates of kidney function, eGFR values calculated with the CKD-EPI equation are not accurate in patients with acute kidney failure, extremes of body mass or the acutely ill. http://[employer] http://[employer]/DHMCnkf Blood specimen (specimen) 03/15/2018 11:50 AM EDT 03/15/2018 11:56 AM EDT Narrative Resulting Agency Comment Spec In Lab Cathy Silva APRN CHEMISTRY ORDERABL ES [facility] [place] [address] * Vitamin B12 (03/15/2018 11:50 AM EDT) Vitamin B12 442 232 - 1,245 pg/mL [facility] Comment: Please note: Effective 07/20/2017, the reference interval and the lower limit of detection for Vitamin B12 have been updated due to a new reagent formulation. Blood specimen (specimen) 03/15/2018 11:50 AM EDT 03/15/2018 11:56 AM EDT Narrative Resulting Agency Comment Spec In Lab Cathy Silva APRN CHEMISTRY ORDERABL ES Performing Organization Address [facility] de Phone Number [facility] [place] [address] * Vitamin D, 25-Hydroxy (03/15/2018 11:50 AM EDT) Vitamin D Total 25 OH 47 30 - 100 ng/mL [facility] Comment: Deficient <10 ng/mL Insufficient 10 to 29 ng/mL Sufficient 30 to 100 ng/mL Potential Intoxication >100 ng/mL According to the [place] National Osteoporosis Foundation, Vitamin D concentrations >30 ng/mL are sufficient to protect bone health. ??The National Kidney Foundation has similarly stated that patients with Vitamin D concentrations <30ng/mL should be considered to be insufficient or deficient. http://[employer]com/nkf-guidelines http://[employer]com/nejm-VitD The [employer] Vitamin D Immunoassay detects both 25-OH Vitamin D2 and 25-OH Vitamin D3, but only a total Vitamin D concentration is reported. Blood specimen (specimen) 03/15/2018 11:50 AM EDT 03/16/2018 7:15 AM EDT Narrative Resulting Agency Comment Spec In Lab Cathy Silva APRN CHEMISTRY ORDERABL ES Performing Organization Address [facility] Co de Phone Number [facility] [place] [address] documented in this encounter Visit Diagnoses Diagnosis Migraine without aura and without status migrainosus, not intractable Migraine without aura, without mention of intractable migraine without mention of status migrainosus documented in this encounter Care Teams Building Associate Relationship Specialty Start Date End Date Keily Larose APRN [address] [place] [address] [address] [place] [address] PCP - General Family Medicine 09/30/15 01/16/19 documented as of this encounter
--- OUTSIDE RECORDS SUMMARY | 2024-04-12 11:19 | XMS_ITS | Encounter Summary ---
Author Organization [facility] [place] [address] Care Team Providers Care Aerial Advertiser Name Role Phone Liang Deluca MD Primary Care Provider Encounter Details Date Type Department Care Team (Latest Contact Info) Description 10/25/2013 6:41 AM EST - 10/25/2013 10:25 AM EST Hospital Encounter [place] [address] Jeremy Condon III, MD [facility] [place] [address] Discharge Disposition: Home Social History Tobacco Use [...] Sign Reading Time Taken Comments Blood Pressure 125/71 10/25/2013 9:37 AM EST Pulse 54 10/25/2013 9:37 AM EST Temperature 36.6 ??C (97.9 ??F) 10/25/2013 9:37 AM ES T Respiratory Rate 16 10/25/2013 9:37 AM EST Oxygen Saturation 97% 10/25/2013 9:37 AM EST Inhaled Oxygen Concentration - - Weight - - Height - - Body Mass Index - - documented in this encounter Discharge Instructions * Discharge Instructions* Sarah Quevedo RN - 10/25/2013 9:39 AM EST POST [...] Active and Recently Administered Medications Care Teams Aerial Advertiser Relationship Specialty Start Date End Date Liang Deluca MD [address] [place] [id number] PCP - General 07/14/10 09/29/15 documented as of this encounter
--- OUTSIDE RECORDS SUMMARY | 2024-04-12 11:19 | XMS_ITS | Encounter Summary ---
Author Organization Formerly [facility] [place] [address] Care Team Providers Care Banquet Server On Call Name Role Phone Liang Deluca MD Primary Care Provider [phone] Encounter Details Date Type Department Care Team (Late st Contact Info) Description 12/27/2013 7:38 AM EDT Anesthesia Event [place] [address] William Cao MD [facility] [place] [address] Jim Leon MD [facility] [place] [address] Anesthesia Record Procedure Summary Procedure Name Responsible Anesthesiologist Anesthesia Start Time Anesthesia Stop Time ECT (WRVU 2.5) William Cao MD 12/27/13 073 8 12/27/13 0800 Events Date Time Event Comment 12/27/2013 0736 0738 AN Verify 0738 An Start Data 0738 An Start Data 0738 Start 0739 ASA Monitors 0743 Masked Placed/ Pre O2 0746 An Induction 0749 Bite Block In 0749 ECT Rx 0752 PACU Bed 0758 an stop data 0800 Stop Meds Name Total methohexital 30 mg ketamine 10 mg/mL 50 mg succinylcholine 60 mg Labetalol 10 mg lactated ringers 100 mL * Agents No agents on file. * Blood No blood administrations on file. Lines, Drains, and Airways Type Details Placement Removal (RETIRED) Peripheral IV Line - Double Lumen 12/27/13; 0803 (placed in SD. not charted); metacarpal vein (top of hand), right; [id number] catheter system; 22 gauge; no longer indicated, removed per policy/procedure, site care per policy/procedure; 12/27/13; 0839 12/27/13 0803 by Emilia Rivera RN 12/27/13 0839 by Noemy Duong RN documented in this encounter Social History [...] OR Notes * Anesthesia Postprocedure Evaluation - William Cao MD - 12/28/2013 12:54 PM EDT Patient: Aziza Tamez Procedure(s) Performed: Procedure(s): ECT Actual Anesthetic: general Patient location: PACU Post-op pain: Adequate analgesia Post-op nausea: no nausea or vomiting Last Vitals: Filed Vitals: 12/27/13 0829 BP: 138/77 Pulse: 56 Temp: 36.7 ??C (98.1 ??F) Resp: 16 Post-op cardiovascular and respiratory status: is stable Level of consciousness: awake, alert and oriented Complications: no apparent complications and tolerated the procedure well Fluid Status: normal * Anesthesia Preprocedure Evaluation - William Cao MD - 12/26/2013 10:10 PM EDT Pre-Anesthesia Evaluation for: Aziza Tamez a 53 y.o. female. Procedure(s): ECT Patient Active Problem List Diagnosis ??? Generalized anxiety disorder ??? Recur major depress, severe ??? MDD (major depressive disorder), recurrent episode, severe Past Medical History Diagnosis Date ??? Irritable bowel syndrome ??? Depression ??? Anxiety Past Surgical History Procedure Date ??? Electroconvulsive therapy,1 seiz 08/17/2013 ECT performed by Brandie Rios MD at [facility] OR ??? Electroconvulsive therapy,1 seiz 08/20/2013 ECT performed by Jeremy Condon MD at [facility] OR ??? Electroconvulsive therapy,1 seiz 08/21/2013 ECT performed by Mitchell Bunch MD at [facility] OR ??? Electroconvulsive therapy,1 seiz 08/23/2013 ECT performed by Brandie Rios MD at [facility] OR ??? Electroconvulsive therapy,1 seiz 08/30/2013 ECT performed by Jeremy Condon MD at [facility] OR ??? Electroconvulsive therapy,1 seiz 09/06/2013 ECT performed by Jeremy Condon MD at [facility] OR ??? Electroconvulsive therapy,1 seiz 09/27/2013 ECT performed by Jeremy Condon MD at [facility] OR ??? Electroconvulsive therapy,1 seiz 10/11/2013 ECT performed by Jeremy Condon MD at [facility] OR ??? Electroconvulsive therapy,1 seiz 10/25/2013 ECT performed by Robert Gabriel MD at [facility] OR ??? Electroconvulsive therapy,1 seiz 11/29/2013 ECT performed by João Pratt MD at [facility] OR ??? Electroconvulsive therapy,1 seiz 12/11/2013 ECT performed by Mick De Leon MD at [facility] OR History Substance Use Topics ??? Smoking [...] BMI. Anesthesia Physical Exam Anesthesia Plan: ASA 2 general, with a(n) intravenous induction Preliminary note 53 y/o F who presents for ECT. Plan for GA, standard monitors. No previous airway notes Staff Addendum: No change in medical history. Denies recent URI, denies GERD, denies CP/SOB, reports good functional tolerance (able to ambulate 2 FOS without problems), and is appropriately NPO. Plan for GA Region - Other Informed Consent: Anesthetic plan and risks discussed with patient. Plan discussed with resident. [facility] Assessment: documented in this encounter Plan of Treatment Not on file documented as of this encounter Visit Diagnoses Not on filedocumented in this encounter Administered Medications Inactive Administered Medications - up to 3 most recent administrations Medication Order MAR Action Action Date Dose Rate Site ketamine (KETALAR) 10 mg/mL bolus injection (Anesthesia) PRN, Starting on Velia 12/27/13 at 0746, Until Velia 12/27/13 at 0800, Anesthesia Intra-op Given 12/27/2013 7:46 AM EDT 50 mg labetalol (NORMODYNE;TRANDATE) injection PRN, Starting on Velia 12/27/13 at 0754, Until Velia 12/27/13 at 0800, High Blood Pressure, Anesthesia Intra-op, Routine Given 12/27/2013 7:54 AM EDT 10 mg lactated ringers infusion CONTINUOUS PRN, Starting on Velia 12/27/13 at 0738, Until Velia 12/27/13 at 0800, Anesthesia Intra-op New Bag 12/27/2013 7:38 AM EDT mL methohexital (BREVITAL) injection PRN, Starting on Velia 12/27/13 at 0747, Until Velia 12/27/13 at 0800, Anesthesia Intra-op, Routine Given 12/27/2013 7:47 AM EDT 30 mg succinylcholine (ANECTINE) injection PRN, Starting on Velia 12/27/13 at 0748, Until Velia 12/27/13 at 0800, Anesthesia Intra-op, Routine Given 12/27/2013 7:48 AM EDT 60 mg documented in this encounter Care Teams Banquet Server On Call Relationship Specialty Start Date End Date Liang Deluca MD [address] [place] [address] [place] [address] PCP - General 07/14/10 09/29/15 documented as of this encounter
--- OUTSIDE RECORDS SUMMARY | 2024-04-12 11:19 | XMS_ITS | Encounter Summary ---
Author Organization [facility] Address [facility] [place] [address] Care Team Providers Care Metal Flow Coordinator Name Role Phone Liang Deluca MD Primary Care Provider [phone] Encounter Details Date Type Department Care Team (Late st Contact Info) Description 09/27/2013 9:00 AM EST - 09/27/2013 9:15 AM EST [place] [id number] Jeremy Condon III, MD [facility] [place] [address] ECT (WRVU 2.5) Social History Tobacco Use [...] 5pm/weekends call and ask for vice president of sales on-call. POST ANESTHESIA INSTRUCTIONS Go home, rest, [...] RN) documented in this encounter Care Teams Metal Flow Coordinator Relationship Specialty Start Date End Date Liang Deluca MD [address] [place] [address] PCP - General 07/14/10 09/29/15 documented as of this encounter
--- OUTSIDE RECORDS SUMMARY | 2024-04-12 11:19 | XMS_ITS | Encounter Summary ---
Author Organization [facility] Address [facility] [place] [address] Care Team Providers Care Strategic Procurement Manager Name Role Phone Liang Deluca MD Primary Care Provider Encounter Details Date Type Department Care Team (Late st Contact Info) Description 12/11/2013 8:05 AM EDT Anesthesia Event [place] [id number] London Jimenez MD [facility] [place] [address] Annette Brooks CRNA [facility] [place] [address] Anesthesia Record Procedure Summary Procedure Name Responsible Anesthesiologist Anesthesia Start Time Anesthesia Stop Time ECT (WRVU 2.5) London Jimenez MD 12/11/13 0805 0 12/11/13 0822 Events Date Time Event Comment 12/11/2013 0805 AN Verify 0805 Start 0806 An Start Data 0807 ASA Monitors 0811 Masked Placed/ Pre O2 0813 An Induction 0816 Bite Block In 0816 ECT Rx 0821 PACU Bed 0821 an stop data 0822 Stop 0823 Meds Name Total methohexital 80 mg succinylcholine 60 mg ketorolac 30 mg lactated ringers 0 mL * Agents Name O2 * Blood No blood administrations on file. Lines, Drains, and Airways Type Details Placement Removal (RETIRED) Peripheral IV Line - Single Lumen 12/11/13; (placed in SDP); metacarpal vein (top of hand), left; no longer indicated, catheter intact; 12/11/13; 0912/11/13 0000 by Leigh Ann Mo RN 12/11/13 0901 by Paige Bailey RN documented in this encounter Social History [...] OR Notes * Anesthesia Postprocedure Evaluation - London Jimenez MD - 12/11/2013 8:23 AM EDT Patient: Aziza Tamez Procedure(s) Performed: Procedure(s): ECT Actual Anesthetic: @ANTYPEFINAL@ Patient location: PACU Post-op pain: Adequate analgesia Post-op nausea: no nausea or vomiting Last Vitals: Filed Vitals: 12/11/13 0652 BP: 124/52 Pulse: 54 Temp: 36.3 ??C (97.3 ??F) Resp: 16 Post-op cardiovascular and respiratory status: is stable Level of consciousness: awake, alert and oriented Complications: no apparent complications and tolerated the procedure well Fluid Status: normal * Anesthesia Preprocedure Evaluation - London Jimenez MD - 12/11/2013 8:10 AM EDT Pre-Anesthesia Evaluation for: Aziza Tamez a [...] ECT performed by Brandie Rios MD at [facility] MA[facility] OR ??? Electroconvulsive therapy,1 seiz 08/20/2013 ECT performed by Jeremy Condon MD at [facility] OR ??? Electroconvulsive therapy,1 seiz 08/21/2013 ECT performed by Mitchell Bunch MD at [facility] OR ??? Electroconvulsive therapy,1 seiz 08/23/2013 ECT performed by Brandie Rios MD at [facility] OR ??? Electroconvulsive therapy,1 seiz 08/30/2013 ECT performed by Jeremy Condon MD at [facility] OR ??? Electroconvulsive therapy,1 seiz 09/06/2013 ECT performed by Jeremy Condon MD at [facility] OR ??? Electroconvulsive therapy,1 seiz 09/27/2013 ECT performed by Jeremy Condon MD at [facility] OR ??? Electroconvulsive therapy,1 seiz 10/11/2013 ECT performed by Jeremy Condon MD at [facility] OR ??? Electroconvulsive therapy,1 seiz 10/25/2013 ECT performed by Robert Gabriel MD at [facility] OR ??? Electroconvulsive therapy,1 seiz 11/29/2013 ECT performed by João Pratt MD at [facility] OR History Substance Use Topics ??? Smoking [...] with a(n) intravenous induction Plan for GA. PO tylenol worked well last time., Given in SDP again today. Latex allergy, special bite block/. Region - Other Informed Consent: Anesthetic plan and risks discussed with patient. Plan discussed with MARGIN CLERK and attending. [facility] [place]. Assessment: documented in this encounter Plan of Treatment Not on file documented as of this encounter Visit Diagnoses Not on filedocumented in this encounter Administered Medications Inactive Administered Medications - up to 3 most recent administrations Medication Order MAR Action Action Date Dose Rate Site ketorolac (TORADOL) injection PRN, Starting on Tue12/11/13 at 0813, Until Tue12/11/13 at 0822, Pain, Anesthesia Intra-op, Routine Given 12/11/2013 8:13 AM EDT 30 mg lactated ringers infusion CONTINUOUS PRN, Starting on Velia 09/06/13 at 0730, Until 01/11/22 at 0930, Anesthesia Intra-op New Bag 12/11/2013 8:05 AM EDT mL New Bag 09/06/2013 7:30 AM EST mL methohexital (BREVITAL) injection PRN, Starting on Tue12/11/13 at 0813, Until Tue12/11/13 at 0822, Anesthesia Intra-op, Routine Given 12/11/2013 8:13 AM EDT 80 mg succinylcholine (ANECTINE) injection PRN, Starting on Tue12/11/13 at 0813, Until Tue12/11/13 at 0822, Anesthesia Intra-op, Routine Given 12/11/2013 8:13 AM EDT 60 mg documented in this encounter Care Teams Strategic Procurement Manager Relationship Specialty Start Date End Date Liang Deluca MD [address] [place] [address] PCP - General 07/14/10 09/29/15 documented as of this encounter
--- OUTSIDE RECORDS SUMMARY | 2024-04-12 11:19 | XMS_ITS | Encounter Summary ---
Author Organization [facility] [place] [address] Care Team Providers Care Academic Advisor Name Role Phone Liang Deluca MD Primary Care Provider Encounter Details Date Type Department Care Team (Late st Contact Info) Description 01/21/2014 Telephone Psychiatry and [place] [phone] Kar Pollock RN Social History Tobacco Use [...] Telephone Encounter - Kar Pollock RN - 01/21/2014 8:51 AM EDT At 8:51 AM on 01/21/14 this pt called stating she was very well and reporting had received a call from the Same Day stating she was scheduled for ECT this , 01/24. This commercial lines underwriter confirmedthat she was in fact still scheduled for 01/24, 02/21, 03/21, and 04/18. This commercial lines underwriter reassured thispt per order of Dr. Davis she will be removed from the ECT for all of these dates. She said she has a follow up appt with Dr. Davis in February. documented in this encounter Plan of Treatment Not on file documented as of this encounter Visit Diagnoses Not on filedocumented in this encounter Care Teams Academic Advisor Relationship Specialty Start Date End Date Liang Deluca MD [address] [place] [address] [place] [address] PCP - General 07/14/10 09/29/15 documented as of this encounter
--- OUTSIDE RECORDS SUMMARY | 2024-04-12 11:19 | XMS_ITS | Encounter Summary ---
Author Organization [facility] [place] [address] Care Team Providers Care Door Clamp Operator Name Role Phone Liang Deluca MD Primary Care Provider [phone] Encounter Details Date Type Department Care Team (Late st Contact Info) Description 11/29/2013 8:53 AM EDT Anesthesia Event [place] [phone] Sacih Gutiérrez MD [facility] [place] [address] Anesthesia Record Procedure Summary Procedure Name Responsible Anesthesiologist Anesthesia Start Time Anesthesia Stop Time ECT (WRVU 2.5) Sachi Gutiérrez MD 11/29/13 0853 06/04 0909 Events Date Time Event Comment 11/29/2013 0732 0853 AN Verify 0853 Start 0853 An Start Data 0853 ASA Monitors 0856 Masked Placed/ Pre O2 0859 An Induction 0859 Bite Block In 0902 ECT Rx 0904 PACU Bed 0908 an stop data 0909 Stop Meds * Agents No agents on file. * Blood No blood administrations on file. Lines, Drains, and Airways Type Details Placement Removal (RETIRED) Peripheral IV Line - Single Lumen 11/29/13; 0744; metacarpal vein (top of hand), right; [id number] catheter system; 20 gauge, 1 in length; js; tolerated well; metacarpal vein (top of hand), right; removed per patient; 11/29/13; 0941 11/29/13 0744 by Jeffry Vu RN 11/29/13 0941 by Shauna Portillo RN documented in this encounter Social History [...] Postprocedure Evaluation - Sachi Gutiérrez MD - 12/12/2013 11:15 AM EDT Patient: Aziza Tamez Procedure(s) Performed: Procedure(s): ECT Actual Anesthetic: general Pt tolerated the procedure well. Was seen on DOS in the PACU. No hemodynamic pertubations noted. Sachi Gutiérrez MD * Anesthesia Preprocedure Evaluation - Sachi Gutiérrez MD - 11/29/2013 7:32 AM EDT Pre-Anesthesia Evaluation for: Aziza Tamez [...] ECT performed by Brandie Rios MD at [facility] MA[facility] OR ??? Electroconvulsive therapy,1 seiz 08/20/2013 ECT performed by Jeremy Condon MD at [facility] MA[facility] OR ??? Electroconvulsive therapy,1 seiz 08/21/2013 ECT performed by Mitchell Bunch MD at [facility] OR ??? Electroconvulsive therapy,1 seiz 08/23/2013 ECT performed by Brandie Rios MD at [facility] MA[facility] OR ??? Electroconvulsive therapy,1 seiz 08/30/2013 ECT performed by Jeremy Condon MD at [facility] MA[facility] OR ??? Electroconvulsive therapy,1 seiz 09/06/2013 ECT performed by Jeremy Condon MD at [facility] MA[facility] OR ??? Electroconvulsive therapy,1 seiz 09/27/2013 ECT performed by Jeremy Condon MD at [facility] MA[facility] OR ??? Electroconvulsive therapy,1 seiz 10/11/2013 ECT performed by Jeremy Condon MD at [facility] MA[facility] OR ??? Electroconvulsive therapy,1 seiz 10/25/2013 ECT performed by Robert Gabriel MD at [facility] MA[facility] OR History Substance Use Topics ??? [...] with a(n) intravenous induction Plan for GA. Toradol worsened headache last time. Will give PO tylenol to see if it is helpful withheadache. Region - Other Informed Consent: Anesthetic plan and risks discussed with patient. Plan discussed with MELLOWING MACHINE OPERATOR and attending. [facility] [place]: documented in this encounter Plan of Treatment Not on file documented as of this encounter Visit Diagnoses Not on filedocumented in this encounter Care Teams Door Clamp Operator Relationship Specialty Start Date End Date Liang Deluca MD [address] [place] [address] PCP - General 07/14/10 09/29/15 documented as of this encounter
--- OUTSIDE RECORDS SUMMARY | 2024-04-12 11:19 | XMS_ITS | Encounter Summary ---
Author Organization [facility] [place] [address] Care Team Providers Care Harbor Pilot Name Role Phone Liang Deluca MD Primary Care Provider Encounter Details Date Type Department Care Team (Latest Contact Info) Description 11/29/2013 6:44 AM EDT - 11/29/2013 9:57 AM EDT Hospital En[place] [address] Jeremy Condon III, MD [facility] [place] [address] João Pratt MD [facility] [place] [address] Discharge Disposition: Home Social History Tobacco Use [...] Sign Reading Time Taken Comments Blood Pressure 134/76 11/29/2013 9:39 AM EDT Pulse 61 11/29/2013 9:39 AM EDT Temperature 36.8 ??C (98.2 ??F) 11/29/2013 9:39 AM ED T Respiratory Rate 16 11/29/2013 9:39 AM EDT Oxygen Saturation 97% 11/29/2013 9:39 AM EDT Inhaled Oxygen Concentration - - [...] 5pm/weekends call and ask for vice president network on-call. documented in this encounter Medications at [...] in 24 hours., Routine 0716 (Given - Provid er: Shauna Portillo RN) documented in this encounter Care Teams Harbor Pilot Relationship Specialty Start Date End Date Liang Deluca MD [address] [place] [address] [place] [address] PCP - General 07/14/10 09/29/15 documented as of this encounter
--- OUTSIDE RECORDS SUMMARY | 2024-04-12 11:19 | XMS_ITS | Encounter Summary ---
Author Organization [facility] [place] [address] Care Team Providers Care Wick And Base Assembler Name Role Phone Liang Deluca MD Primary Care Provider [phone] Encounter Details Date Type Department Care Team (Late st Contact Info) Description 07/24/2014 Telephone Psychiatry [place] [phone] Kar Pollock RN Social History Tobacco Use [...] Telephone Encounter - Kar Pollock RN - 07/24/2014 2:03 PM EST At 10:15 AM on 07/24/14 Dr. Alon Davis called stating this pt is struggling again. He stated he would like to schedule her for further ECT. This investment underwriter told him she started ECT nearly a year ago and stated all of her pre-ECT work needs to be completed 1. H&P- can be faxed to this investment underwriter's attn at [phone] 2. Labs, ECG, consents- to be done in Pre-Admission Testing He said this pt doesn't need an acute course of ECT. He suggested she be scheduled for ECT weekly for four weeks. He did comment that her 2 week trip to [place] in August will likely interfere with weekly ECT. He said he will call this pt and ask the patient to call this investment underwriter ([phone]) to schedule an appt with Pre-Admission Testing. documented in this encounter Plan of Treatment Not on file documented as of this encounter Visit Diagnoses Not on filedocumented in this encounter Care Teams Wick And Base Assembler Relationship Specialty Start Date End Date Liang Deluca MD [address] [place] [address] PCP - General 07/14/10 09/29/15 documented as of this encounter
--- OUTSIDE RECORDS SUMMARY | 2024-04-12 11:19 | XMS_ITS | Encounter Summary ---
Author Organization [facility] [place] [address] Care Team Providers Care Social Worker Aide Name Role Phone Liang Deluca MD Primary Care Provider Encounter Details Date Type Department Care Team (Late st Contact Info) Description 09/07/2013 Telephone Psychiatry [place] [phone] Kar Pollock, RN Social History Tobacco Use [...] Telephone Encounter - Kar Pollock RN - 09/18/2013 9:21 AM EST At 8:30 AM on 09/18/13 this pt called to schedule ECT. She didn't want to start ECT this week. She stated she has a follow up appointment with Dr. Davis on September 26. She was added to the ECT scheduled: 09/27 (), 10/11 (), and 10/25 (). She stated when she had been getting ECT she took cytomel to protect her memory. She said she hasn't taken this med since she ended ECT. She asked if she should re-start cytomel when she restarts ECT. She said she doesn't have anymore cytomel.She was encouraged to follow up with Dr. Davis to see if he wants her to take cytomel and if he does want her to take it, he can provide her a prescription for it. * Telephone Encounter - Kar Pollock RN - 09/17/2013 10:34 AM EST At 3:56 PM on 09/17/13 this pt left a voicemail ([phone]) asking to set up maintenanceECT appts. At 8:55 AM on 09/17/13 Dr. Davis ([phone]) ordered ECT every two weeks for 3 weeks and then possibly every month. At 10:41 AM on 09/17/13 a voicemail was left at ([phone]) asking this pt to call back [phone]. * Telephone Encounter - Kar Pollock RN - 09/11/2013 2:15 PM EST At 1:19 PM on 09/11/13 Dr. Alon Davis left a voice mail asking for a call back at [phone]. At 2:18 PM on 09/11/13 this va underwriter called Dr. Alon Davis back at [phone]. He was told she appeared to respond well to the 5 ECTs she received. He suggested she start the following maintenance ECT schedule: ECT every 2 week for 2-3 weeks, then monthly *1 month and follow up. (Her last ECT was 08/30/13.) Dr. Davis said he will contact this pt to discuss this plan and call this va underwriter back at [phone] to confirm the plan. * Telephone Encounter - Kar Pollock RN - 09/07/2013 8:01 AM EST At 8:00 AM on 09/07/13 this va underwriter left a voicemail asking Provider: Dr. Alon Davis, [address] [place] [address], to call back [phone] with follow up ECT orders. documented in this encounter Plan of Treatment Not on file documented as of this encounter Visit Diagnoses Not on filedocumented in this encounter Care Teams Social Worker Aide Relationship Specialty Start Date End Date Liang Deluca MD [address] [place] [address] [place] [address] PCP - General 07/14/10 09/29/15 documented as of this encounter
--- OUTSIDE RECORDS SUMMARY | 2024-04-12 11:19 | XMS_ITS | Encounter Summary ---
Author Organization [facility] [address] Care Team Providers Care Java Application Developer Name Role Phone Keily Larose APRN Primary Care Provider + Encounter Details Date Type Department Care Team (Late st Contact Info) Description 07/04/2018 [place] [address] Brittany Quevedo Social History Tobacco Use Types Packs/Day Years [...] on filedocumented in this encounter Care Teams Java Application Developer Relationship Specialty Start Date End Date Keily Larose APRN [address] [place] [address] , [address] [place], [place] [id number] PCP - General Family Medicine 09/30/15 01/16/19 documented as of this encounter
--- OUTSIDE RECORDS SUMMARY | 2024-04-12 11:19 | XMS_ITS | Encounter Summary ---
Author Organization Formerly [facility] [place] [address] Care Team Providers Care Locomotive Firer/Fireman Name Role Phone Liang Deluca MD Primary Care Provider [phone] Encounter Details Date Type Department Care Team (Late st Contact Info) Description 11/28/2013 Telephone Psychiatry [place] [phone] Kar Pollock RN Social History Tobacco Use [...] Telephone Encounter - Kar Pollock RN - 11/28/2013 5:06 PM EDT At 1:03 PM on 11/28/13 this pt ([phone]) left a voice mail asking for confirmation of her ECT scheduled for tomorrow at 7 AM and 12/26. She stated she plans to see Dr. Davis on 12/10/13. At 5:05 PM on 11/28/13 this law writer called this pt and confirmed she is scheduled for ECTtomorrow and 12/27/13. When asked how she is doing she replied I'm glad I have ECT tomorrow. documented in this encounter Plan of Treatment Not on file documented as of this encounter Visit Diagnoses Not on filedocumented in this encounter Care Teams Locomotive Firer/Fireman Relationship Specialty Start Date End Date Liang Deluca MD [address] [place] [address] [place] [address] PCP - General 07/14/10 09/29/15 documented as of this encounter
--- OUTSIDE RECORDS SUMMARY | 2024-04-12 11:19 | XMS_ITS | Encounter Summary ---
Author Organization [facility] Address [facility] [place] [address] Care Team Providers Care Sanforizing Machine Operator Name Role Phone Liang Deluca MD Primary Care Provider Encounter Details Date Type Department Care Team (Late st Contact Info) Description 12/11/2013 8:30 AM EDT - 12/11/2013 8:45 AM EDT [place] [address] Mick De Leon MD [facility] [place] [address] ECT (WRVU 2.5) Social History Tobacco Use [...] 5pm/weekends call and ask for vice president sales on-call. POST ANESTHESIA INSTRUCTIONS Go home, [...] RN) documented in this encounter Care Teams Sanforizing Machine Operator Relationship Specialty Start Date End Date Liang Deluca MD [address] [place] [id number] PCP - General 07/14/10 09/29/15 documented as of this encounter
--- OUTSIDE RECORDS SUMMARY | 2024-04-12 11:19 | XMS_ITS | Encounter Summary ---
Author Organization [facility] Address [facility] [place] [address] Care Team Providers Care Forest Fire Fighters Dispatcher Name Role Phone Liang Deluca MD Primary Care Provider Encounter Details Date Type Department Care Team (Late st Contact Info) Description 09/06/2013 8:30 AM EST - 09/06/2013 8:45 AM EST Surgery [place] [phone] Jeremy Condon III, MD [facility] [place] [address] ECT (WRVU 2.5) Social History Tobacco Use [...] Sign Reading Time Taken Comments Blood Pressure 122/67 09/06/2013 8:36 AM EST Pulse 63 09/06/2013 8:36 AM EST Temperature 37.1 ??C (98.8 ??F) 09/06/2013 8:26 AM ES T Respiratory Rate 16 09/06/2013 8:36 AM EST Oxygen Saturation 96% 09/06/2013 8:36 AM EST Inhaled Oxygen Concentration - - Weight 53.5 kg (118 lb) 09/06/2013 7:01 AM EST Height 170.2 cm (5' 7) 09/06/2013 7:01 AM EST Body Mass Index 18.48 09/06/2013 7:01 AM EST documented in this encounter Discharge Instructions * Discharge Instructions* Paige Bailey RN - 09/06/2013 8:33 AM EST Rest today. Tylenol if needed for headache. For questions/concerns about today's ECT treatment call: After 5pm/weekends call and ask for residential construction instructor on-call. POST ANESTHESIA INSTRUCTIONS Go home, rest, [...] Major Depressive Disorder 30 tablet 0 08/21/2013 liothyronine (CYTOMEL) 25 mcg tablet Take 1 tablet by mouth every morning for 16 days. 16 tablet 0 08/21/2013 09/06/2013 melatonin 3 mg Tab Take 2 tablets by mouth nightly for 30 days. 60 tablet 0 08/21/2013 09/20/2013 ciprofloxacin (CIPRO) 500 mg tablet Take 1 [...] encounter H&P Notes * Leno Luna - 09/06/2013 7:03 AM EST Patient Name: Aziza Tamez Patient Age: 52 y.o. Birthdate: 1960 Admit date: 09/06/2013 Attending Physician: Jeremy Condon MD HPI: Aziza Tamez is a 52 y.o. female who was been prescribed ECT. Pertinent history changes since last H&P (no changes if nothing noted): Headaches (off and on) - pt questions if this is side effect ECT (reassured patient) Rash on chest (encouraged pt to f/u with PCP) Nausea (not this morning) Suicidal ideation: none Homicidal ideation: none ROS: All negative. Denied cough, chest pain, SOB. PE: Patient Vitals for the past 24 hrs: BP Temp Pulse Resp SpO2 Height Weight 09/06/13 0701 120/63 mmHg 36.7 ??C (98.1 ??F) 54 16 99 % 170.2 cm (5' 7) 53.524 kg (118 lb) Lungs: clear to auscultation bilaterally with good inspiratory effort. Heart: regular rate and rhythm, no murmurs/gallops/rubs. Remaining exam WNL. A/P: I have seen and examined this patient. Proceed with planned ECT procedure. documented in this encounter Procedure Notes * Jeremy Condon MD - 09/06/2013 7:46 AM ESTProcedure(s): ECT Pre-Procedure Diagnose(s): Major depressive disorder, recurrent episode, severe, without mention ofpsychotic behavior ECT SUBSEQUENT TREATMENT NOTE Patient received right-unilateral ECT in the PACU. Course type: acute Treatment # 6 The primary diagnosis is 296.33. Interval history: Mood is good and has maintained over the past week. Has had headaches/nausea at times over the past week, but relates these to the weather Patient was attached to monitoring equipment. The anesthesia team administered the following medications: methohexital 70 mg succinylcholine 60 mg ECT parameters: RUL 0.3/40/5/800 34 second motor seizure 56 second EEG seizure Patient was stabilized and appeared to tolerate the procedure. Complications: none Changes/recommendations for next treatment: none Next treatment date: stopping acute course; no more treatments scheduled Route note to: Dr. Alon Davis documented in this encounter Miscellaneous Notes * Miscellaneous - Provider, Scanning - 09/06/2013 6:04 PM EST * Miscellaneous - Provider, Scanning - 09/06/2013 3:50 PM EST documented in this encounter Plan of Treatment Not on file documented as of this encounter Procedures Procedure Name Priority Date/Time Associated Diagnosis Comments ECT (WRVU 2.5) 09/06/2013 7:44 AM EST 296.33 documented in this encounter Visit Diagnoses Not on filedocumented in this encounter Administered Medications Inactive Administered Medications - up to 3 most recent administrations Medication Order MAR Action Action Date Dose Rate Site lactated ringers infusion 1,000 mL 1,000 mL, at 100 mL/hr, Intravenous, CONTINUOUS, Starting on Velia 09/06/13 at 0745, Until Velia 09/06/13 at 0850, Day of Surgery (Day of Procedure) New Bag 09/06/2013 7:27 AM EST 1,000 mLs 100 mL/hr documented in this encounter Active and Recently Administered Medications Times are shown in EST. Continuous Medication Order 09/04/2013 09/05/2013 09/06/2013 lactated ringers infusion 1,000 mL (CANCELED) 1,000 mL, at 100 mL/hr, Intravenous, CONTINUOUS, Starting on Velia 09/06/13 at 0745, Until Velia 09/06/13 at 0850, Day of Surgery (Day of Procedure) 0727 ([facility] ider: Sarah Quevedo RN) documented in this encounter Care Teams Forest Fire Fighters Dispatcher Relationship Specialty Start Date End Date Liang Deluca MD [address] [place] [address] [place] [address] PCP - General 07/14/10 09/29/15 documented as of this encounter
--- OUTSIDE RECORDS SUMMARY | 2024-04-12 11:19 | XMS_ITS | Encounter Summary ---
Author Organization [facility] [place] [address] Care Team Providers Care Gang Rider Name Role Phone Betty Lazo APRN Primary Care Provider + Reason for Visit * Reason Comments Establish Care Fibroids uterine fibroids Abdominal Pain pelvic pressure * Consultation (Routine) - Closed Specialty Diagnoses / Procedures Referred By Contneda t Referred To Contact Obstetrics and Gynecology Diagnoses LEIMYOMA WITH MODERATE PELVIC PRESSURE 2 UTERINE FIBROIDS Betty Lazo APRN [address] [place] [address] [address], [address] [place] [address] [facility] Oxygen Therapy Technician [address] [place] [address] Referral ID Status Reason Start Date Expiration Date V isits Requested Visits Authorized [id number] Closed Consult & Test Connection [facility] 05/29/2015 05/28/2016 1 1 Encounter Details Date Type Department Care Team (Late st Contact Info) Description 09/30/2015 10:15 AM EST Office Visit Obstetrics [place] [address] [facility] DR OBSTETRICS & [place] [address] Pelvic pressure syndrome; Dyspareunia; History of menorrhagia; Alopecia; Fatigue, unspecified type; Cold intolerance; Poor sleep pattern; Headache(784.0); Hot flashes; Night sweats; Irritable bowel syndrome with diarrhea; Depression; OFELIA (generalized anxiety disorder); Constipation, unspecified constipation type; Diarrhea; Dyschezia; Family history of diabetes mellitus; Postmenopausal Social History Tobacco Use Types Packs/Day [...] Sign Reading Time Taken Comments Blood Pressure 118/68 09/30/2015 10:05 AM EST Pulse - - Temperature - - Respiratory Rate - - Oxygen Saturation - - Inhaled Oxygen Concentration - - Weight 53.5 kg (118 lb) 09/30/2015 10:05 AM EST Height 166.4 cm (5' 5.5) 09/30/2015 10:05 AM ES T Body Mass Index 19.34 09/30/2015 10:05 AM EST documented in this encounter Progress Notes * Jeronimo Sosa MD - 09/30/2015 10:22 AM EST NEW Gynecology CONSULTATION [facility] [place], [place] Candida Lucio MD IVF/ART Night Clerk Auditor MD Paige Cardoso MD Elizabeth Todd, ARNP Donna Bedard, Program [place] CHIEF COMPLAINT: Pelvic pressure, dyspareunia Subjective: The patient is a 54 y.o. . The patient presents in consultation from Betty Lazo for a discussion with regard to her pelvic pressure. Patient was seen by herself today. She lives in [facility], which is [place] away from [facility]. - HPI: Patient reports that she has pelvic pressure so bad that I can't sit. She is in menopause (no menses x 2 years). She complains of dyspareunia as well. This has been going on for the past year, but also worsening over time. - She saw a cuff setter lockstitch in [facility] last fall, after a CT scan showing fibroids. At that time, she was told that her fibroids are unlikely to be causing her pressure, and that it might be her IBS.She has significant IBS (attacks causing a lot of pain), but does not feel that the pressure that she has been having, is attributable to IBS. - PGyn: Menopause x 2 years now. When she was having periods, she reports 3 days of heavy flow withsevere cramping, which improved with ibuprofen/naprosyn. Electric Container Tester review of symptoms includes: No hirsutism, no acne, +alopecia, no galactorrhea, +fatigue, sleeps well with medication, no heat intolerance, +cold intolerance, no history of recent weight change,+headaches weekly, +visual changes, +hot flashes, +night sweats. No h/o abnl pap smears (last in fall 2014). +h/o fibroids on CT scan in 2014. No h/o endometriosis, or STDs. She has used OCPs in the past, for a total of 25 years. - POb: She has had 1 prior pregnancies (vaginal delivery x1; no gestational hypertension/diabetes, no bleeding/infection). - PMH: IBS, major depression, general anxiety disorder - PSH: Laparoscopy for an ovarian cyst 25 years ago; hernia repair 6 years ago. She has also had ECTs here at [facility]. 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 She describes a very good diet (grows her own vegetables), treadmill every morning for exercise, minimal stressors (not like it used to be). - Her environmental exposures include: none - FMH: Unclear, as she grew up in a foster care system +diabetes (father) No FMH of thyroid disease. No FMH of breast/ovarian/colon cancer. No FMH of other cancers. No FMH of endometriosis. No FMH of early menopause. - ROS: +constipation/diarrhea/dyschezia, dyspareunia; No fevers or chills, no chest pain/shortness of breath, no nausea/vomiting, no dysuria/dyschezia/dyspareunia. She denies any stress or urge incontinence symptoms. However, she does sometimes have pressure to urinate but cannot. Past Infertility Treatment: none Past Medical History Diagnosis Date ??? Irritable bowel syndrome ??? Depression ??? Anxiety Past Surgical History Procedure Laterality Date ??? Electroconvulsive therapy,1 seiz 08/17/2013 ECT performed by Brandie Rios MD at [facility] OR ??? Electroconvulsive therapy,1 seiz 08/20/2013 ECT performed by Jeremy Condon MD at [facility] OR ??? Electroconvulsive therapy,1 seiz 08/21/2013 ECT performed by Mitchell Bunch MD at [facility] OR ??? Electroconvulsive therapy,1 seiz 08/23/2013 ECT performed by Brandie Rios MD at [facility] OR ??? Electroconvulsive therapy,1 seiz 08/30/2013 ECT performed by Jeremy Condon MD at [facility] OR ??? Electroconvulsive therapy,1 seiz 09/06/2013 ECT performed by Jeremy Condon MD at [facility] OR ??? Electroconvulsive therapy,1 seiz 09/27/2013 ECT performed by Jeremy Condon MD at [facility] OR ??? Electroconvulsive therapy,1 seiz 10/11/2013 ECT performed by Jeremy Condon MD at [facility] OR ??? Electroconvulsive therapy,1 seiz 10/25/2013 ECT performed by Robert Gabriel MD at [facility] OR ??? Electroconvulsive therapy,1 seiz 11/29/2013 ECT performed by João Pratt MD at [facility] OR ??? Electroconvulsive therapy,1 seiz 12/11/2013 ECT performed by Mick De Leon MD at [facility] OR ??? Electroconvulsive therapy,1 seiz 12/27/2013 ECT performed by Brandie Rios MD at [facility] OR Allergies Allergen Reactions ??? Latex CIS - HIVES ??? Sulfa (Sulfonamide Antibiotics) CIS - Hives ??? Trazodone headache ??? Lactose Intolerance [Lactase] Diarrhea Ms. Tamez had no medications administered during this visit. Objective: Review of the patient in take history. BP 118/68 mmHg Ht 166.4 cm (5' 5.5) Wt 53.524 kg (118 lb) BMI 19.33 kg/m2 LMP 09/30/2013 Full physical exam deferred, as the patient is here primarily for a discussion about her dyspareunia and pelvic pressure today. Assessment: 1.) Dyspareunia 2.) Fibroids on CT scan 3.) Urinary symptoms + vaginismus 4.) Suspected endometriosis: pelvic pressure, dyspareunia, history of dyspareunia 5.) IBS, including constipation, diarrhea, and dyschezia I had a 40-minute visit with this patient, with 80% spent in [id number] counselling with regard to the following issues: (a) Dyspareunia - We first reviewed the [facility] informational handout on when sex is painful. - Patient notes that pap smears are painful for her, which is suggestive of vaginismus. - Patient also notes vaginal dryness, and she does use lubrication (intermittently) for this. - Patient also notes some deep pain, which I reviewed may be conssitent with endometriosis, tumors,bowel/bladder disease, ovarian cysts, or uterine problems. We will plan a pelvic ultrasound to ruleout a nefarious etiology for her pain. - Patient was encouraged to review this booklet, especially the behavioral recommendations. (b) Fibroids on CT scan - We briefly reviewed the [facility] informational handout on uterine fibroids. - Patient reports that she is not concerned about her history of fibroids. - She reports that two of her sisters had hysterectomies for fibroids. - She had an ultrasound in fall; will request those records. - Will also plan repeat pelvic ultrasound. (c) Urinary symptoms + vaginismus - Patient reports I have pressure to urinate, but I am unable to. - UroGyn consult recommended and accepted by patient. (d) Suspected endometriosis: pelvic pressure, dyspareunia, history of dyspareunia - I briefly noted the possibility of endometriosis, given her symptoms of pelvic pressure, and her history of dyspareunia. (e) IBS, including constipation, diarrhea, and dyschezia - Patient encouraged to continue follow-up with Dr. Henry from GI ([place], [place]) Recommendations: 1.) Will plan repeat pelvic ultrasound and then f/u with me. 2.) Prior ultrasound on 05/28/15 is in the computer, but was unable to open it (due to eDh problems,difficulty with special loan officer), so I will plan to look them up later and use as comparative films for a repeat pelvic ultrasound. 3.) UroGyn consult for pelvic pressure + difficulty voiding. 4.) Recommend close follow-up with GI. 5.) Informational booklet on dyspareunia reviewed with patient, as above. All questions answered. Visit time 40 minutes, with 80% of that time spent in direct [id number] counselling. A copy of this note with our recommendations will be sent to Betty Lazo, with our appreciation for this consult. JERONIMO SOSA MD 09/30/2015 4:41 PM PCP = BETTY LAZO APRN documented in this encounter Plan of Treatment Not on file documented as of this encounter Results * US Transvaginal Non [...] 12:07 am) Patient Info ID #: ? [id number] ?: ??[birth year] (54 yrs) Name: ? ROSA SPRINGER- ?Visit Date: 10/16/2015 10:37 am ? PETIT Performed By Performed By: ? Jeimy Alonzo RDMS Attending: ?Jeronimo Sosa MD. Referred By: ?JERONIMO SOSA MD Service(s) Provided ??UTV - Ultrasound - Transvaginal - [id number] ? [id number] Indications ??pelvic pressure, dyspareunia, history of ??fibroids, [...] 10/17/2015 12:07 am) Patient Info ID #: [id number] : [birth year] (54 yrs) Name: ROSA SPRINGER- Visit Date: 10/16/2015 10:37 am PETIT Performed By Performed By: Jeimy Alonzo RDMS Attending: Jeronimo Sosa MD Referred By: JERONIMO SOSA MD Service(s) Provided UTV - Ultrasound - Transvaginal - [id number] Indications pelvic pressure, dyspareunia, history of fibroids, [...] of other genital system and obstetric disorders Alopecia Alopecia, unspecified Fatigue, unspecified type Cold intolerance Other general symptoms Poor sleep pattern Other sleep disturbances Headache(784.0) Headache Hot flashes Symptomatic menopausal or female climacteric states Night sweats Generalized hyperhidrosis Irritable bowel syndrome with diarrhea Irritable bowel syndrome Depression Depressive disorder, not elsewhere classified OFELIA (generalized anxiety disorder) Generalized anxiety disorder Constipation, unspecified constipation type Diarrhea Dyschezia Unspecified constipation Family history of diabetes mellitus Postmenopausal Asymptomatic postmenopausal status (age-related) (natural) Pelvic pressure syndrome Pelvic congestion syndrome Dyspareunia History of menorrhagia Personal history of other genital system and obstetric disorders documented in this encounter Care Teams Gang Rider Relationship Specialty Start Date End Date Betty Lazo APRN [address] [place] [address] , [address] [place] [address] PCP - General Family Medicine 09/30/15 01/16/19 documented as of this encounter
--- OUTSIDE RECORDS SUMMARY | 2024-04-12 11:20 | XMS_ITS | Encounter Summary ---
Author Organization [facility] Address [facility] [place] [address] Care Team Providers Care Boiler Room Helper Name Role Phone Liang Deluca MD Primary Care Provider Encounter Details Date Type Department Care Team (Late st Contact Info) Description 08/20/2013 9:30 AM EST Anesthesia [place] [phone] London Jimenez MD [facility] [place] [address] Amaris Villareal CRNA [facility] [place] [address] Anesthesia Record Procedure Summary Procedure Name Responsible Anesthesiologist Anesthesia Start Time Anesthesia Stop Time ECT (WRVU 2.5) London Jimenez MD 08/20/13 0930 1 0946 Events Date Time Event Comment 08/20/2013 0929 0930 AN Verify 0930 Start 0930 An Start Data 0930 ASA Monitors 0933 Masked Placed/ Pre O2 0934 An Induction 0937 Bite Block In 0937 ECT Rx 0941 PACU Bed 0941 an stop data 0946 Stop Meds Name Total methohexital 70 mg succinylcholine 60 mg lactated ringers 0 mL * Agents Name O2 * Blood No blood administrations on file. Lines, Drains, and Airways Type Details Placement Removal (RETIRED) Peripheral IV Line - Single Lumen 08/16/13; 2011; 08/30/13; 92108/16/132011 by Jes Freeman RN 08/30/13921 by Dionne Alegre RN documented in this encounter Social History Tobacco Use Types Packs/Day Years Used Date Smoking Tobacco: Never Alcohol Use Standard Drinks/Week Comments Yes 5 (1 standard drink = 0.6 oz pur e alcohol) Sex and Gender Information Value Date Recorded Sex Assigned at Not on file Gender Identity Not on file Sexual Orientation Not on file documented as of this encounter OR Notes * Anesthesia Postprocedure Evaluation - London Jimenez MD - 08/20/2013 10:50 AM EST Patient: Aziza Tamez Procedure(s) Performed: Procedure(s): ECT Actual Anesthetic: general Patient location: PACU Post-op pain: Adequate analgesia Post-op nausea: no nausea or vomiting Last Vitals: Filed Vitals: 08/20/13 1003 BP: 111/72 Pulse: 61 Temp: Resp: 14 Post-op cardiovascular and respiratory status: is stable Level of consciousness: awake, alert and oriented Complications: no apparent complications and tolerated the procedure well Fluid Status: normal * Anesthesia Preprocedure Evaluation - London Jimenez MD - 08/20/2013 9:27 AM EST Pre-Anesthesia Evaluation for: Aziza Tamez a 52 y.o. female. Procedure(s): ECT Patient Active Problem List Diagnosis ??? Generalized anxiety disorder ??? Recur major depress, severe ??? MDD (major depressive disorder), recurrent episode, severe Past Medical History Diagnosis Date ??? Irritable bowel syndrome ??? Depression ??? Anxiety No past surgical history on file. History Substance Use Topics ??? Smoking status: Never Smoker ??? Smokeless tobacco: Not on file ??? Alcohol Use: 3.0 oz/week 5 Glasses of wine per week History Drug Use No Allergies Allergen Reactions ??? Latex CIS - HIVES ??? Sulfa (Sulfonamide Antibiotics) CIS - Hives ??? Gloves, Latex ??? Trazodone headache Medications: MAR and/or home medications have been reviewed. Physical Exam: There were no vitals filed for this visit. There is no height or weight on file to calculate BMI. Airway Assessment: Mallampati: I TM distance: >3 FB Neck ROM: full TMJ problem on left limits mouth opening Cardiovascular Assessment: Rhythm: regular Rate: normal Pulmonary Assessment: pulmonary exam normal Dental Assessment: [facility] Assessment: Anesthesia Plan: ASA 2 general, with a(n) intravenous induction Consent obtained for series of ECT treatments. Last treatment with 10 years ago complicated by short term memory loss. Treatment changed to unilateral to help prevent this. OK to proceed. No issues with last treatment. NPO. Region - Other Informed Consent: Anesthetic plan and risks discussed with patient. Plan discussed with RECONCILIATION COORDINATOR. [facility]. Assessment: documented in this encounter Plan of Treatment Not on file documented as of this encounter Visit Diagnoses Not on filedocumented in this encounter Administered Medications Inactive Administered Medications - up to 3 most recent administrations Medication Order MAR Action Action Date Dose Rate Site lactated ringers infusion CONTINUOUS PRN, Starting on Tue08/20/13 at 0930, Until Tue08/20/13 at 0946, Anesthesia Intra-op [facility] 08/20/2013 9:30 AM EST mL methohexital (BREVITAL) injection PRN, Starting on Tue08/20/13 at 0934, Until Tue08/20/13 at 0946, Anesthesia Intra-op, Routine Given 08/20/2013 9:34 AM EST 70 mg succinylcholine (ANECTINE) injection PRN, Starting on Tue08/20/13 at 0935, Until Tue08/20/13 at 0946, Anesthesia Intra-op, Routine Given 08/20/2013 9:35 AM EST 60 mg documented in this encounter Care Teams Boiler Room Helper Relationship Specialty Start Date End Date Liang Deluca MD [address] [place] [address] [place] [address] PCP - General 07/14/10 09/29/15 documented as of this encounter
--- OUTSIDE RECORDS SUMMARY | 2024-04-12 11:20 | XMS_ITS | Encounter Summary ---
Author Organization [facility] [place] [address] Care Team Providers Care Channel Partners Name Role Phone Liang Deluca MD Primary Care Provider Encounter Details Date Type Department Care Team (Late st Contact Info) Description 09/06/2013 7:44 AM EST Anesthesia Event [place] [phone] Kasey Ames MD [facility] [place] [address] Anesthesia Record Procedure Summary Procedure Name Responsible Anesthesiologist Anesthesia Start Time Anesthesia Stop Time ECT (WRVU 2.5) Kasey Ames MD 09/06/13 0744 09/06 0757 Events Date Time Event Comment 09/06/2013 0744 AN Verify 0744 Start 0744 An Start Data 0744 ASA Monitors 0745 0747 Masked Placed/ Pre O2 0748 An Induction 0751 Bite Block In 0751 ECT Rx 0756 PACU Bed 0756 an stop data 0757 Stop Meds Name Total methohexital 70 mg succinylcholine 60 mg lactated ringers 150 mL * Agents No agents on file. * Blood No blood administrations on file. Lines, Drains, and Airways Type Details Placement Removal (RETIRED) Peripheral IV Line - Single Lumen 09/06/13; 0727; 09/06/13; 0848 09/06/13 0727 by Sarah Quevedo RN 09/06/13 0848 by Paige Bailey RN documented in this [...] OR Notes * Anesthesia Postprocedure Evaluation - Kasey Ames MD - 09/06/2013 8:11 AM EST Patient: Aziza Tamez Procedure(s) Performed: Procedure(s): ECT Actual Anesthetic: general Patient location: PACU Post-op pain: Adequate analgesia Post-op nausea: no nausea or vomiting Last Vitals: Filed Vitals: 09/06/13 0800 BP: 133/72 Pulse: 68 Temp: Resp: 16 Post-op cardiovascular and respiratory status: is stable Level of consciousness: awake, alert and oriented Complications: no apparent complications and tolerated the procedure well Fluid Status: normal * Anesthesia Preprocedure Evaluation - Kasey Ames MD - 09/05/2013 8:08 PM EST Pre-Anesthesia Evaluation for: Aziza Tamez [...] ECT performed by Brandie Rios MD at [facility] OR ??? Electroconvulsive therapy,1 seiz 08/20/2013 ECT performed by Jeremy Condon MD at [facility] OR ??? Electroconvulsive therapy,1 seiz 08/21/2013 ECT performed by Mitchell Bunch MD at [facility] OR ??? Electroconvulsive therapy,1 seiz 08/23/2013 ECT performed by Brandie Rios MD at [facility] OR ??? Electroconvulsive therapy,1 seiz 08/30/2013 ECT performed by Jeremy Condon MD at [facility] OR History Substance Use Topics [...] ASA 2 general, with a(n) intravenous induction 52 yo F w/ MDD for ECT Plan [place] Consent 08/17/13 Anorexia IBS Non-smoker Allergies: Latex, sulfa, trazodone, lactose-intolerance Wt: 53.5 kg NPO: confirmed Code: Full 08/18/13 Cr 0.74, eGFR greater than 60 08/16/13 CXR - nad 08/16/13 ECG - wnl 12/31/11 Echo - unremarkable, LVEF 60% 12/17/11 Stress test - neg for ischemia Region - Other Informed Consent: Anesthetic plan and risks discussed with patient. Plan discussed with STAFF MECHANICAL ENGINEER. [facility] Assessment: documented in this encounter Miscellaneous Notes * Addendum Note - Kasey Ames MD - 09/06/2013 11:15 AM EST Addendum created 09/06/13 1115 by Kasey Ames MD Modules edited:Anesthesia Medication Administration * Addendum Note - Kasey Ames MD - 09/06/2013 11:15 AM EST Addendum created 09/06/13 1115 by Kasey Ames MD Modules edited:Anesthesia Medication Administration documented in this encounter Plan of Treatment [...] methohexital (BREVITAL) injection PRN, Starting on Velia 09/06/13 at 0748, Until Velia 09/06/13 at 0757, Anesthesia Intra-op, Routine Given 09/06/2013 7:48 AM EST 70 mg succinylcholine (ANECTINE) injection PRN, Starting on Velia 09/06/13 at 0748, Until Velia 09/06/13 at 0757, Anesthesia Intra-op, Routine Given 09/06/2013 7:48 AM EST 60 mg documented in this encounter Care Teams Channel Partners Relationship Specialty Start Date End Date Liang Deluca MD [address] [place] [id number] PCP - General 07/14/10 09/29/15 documented as of this encounter
--- OUTSIDE RECORDS SUMMARY | 2024-04-12 11:20 | XMS_ITS | Encounter Summary ---
Author Organization [facility] Address [facility] [place] [address] Care Team Providers Care News Production Assistant Name Role Phone Liang Deluca MD Primary Care Provider [phone] Encounter Details Date Type Department Care Team (Late st Contact Info) Description 08/30/2013 9:40 AM EST - 08/30/2013 9:55 AM EST Surgery [place] [phone] Jeremy Condon III, MD [facility] DR [place] [address] ECT (WRVU 2.5) Social History Tobacco Use [...] Sign Reading Time Taken Comments Blood Pressure 124/59 08/30/2013 9:17 AM EST Pulse 61 08/30/2013 9:17 AM EST Temperature 37 ??C (98.6 ??F) 08/30/2013 9:17 AM EST Respiratory Rate 16 08/30/2013 9:17 AM EST Oxygen Saturation 100% 08/30/2013 9:17 AM EST Inhaled Oxygen Concentration - - Weight 53.5 kg (118 lb) 08/30/2013 7:04 AM EST Height 170.2 cm (5' 7) 08/30/2013 7:04 AM EST Body Mass Index 18.48 08/30/2013 7:04 AM EST documented in this encounter Discharge Instructions * Discharge Instructions* Yessica Wagner RN - 08/30/2013 8:23 AM EST Rest today. Tylenol if needed for headache. For questions/concerns about today's ECT treatment call: After 5pm/weekends call and ask for president & ceo [employer] on-call. POST ANESTHESIA INSTRUCTIONS Go home, rest, [...] swelling, foul drainage, if occurs contact M.D. . documented in this encounter Medications at Time [...] Progress Notes * Kar Pollock RN - 08/30/2013 9:45 AM EST documented in this encounter H&P Notes * Ricardo Pryor H - 08/30/2013 7:34 AM EST HPI: Aziza Tamez is a 52 y.o. female who has been prescribed ECT. Pertinent history changes since last H&P: None Suicidal ideation: Denies. Homicidal ideation: Denies. ROS: All systems were reviewed and there were no significant complaints. PE: Patient Vitals for the past 8 hrs: BP Temp Pulse Resp SpO2 Height Weight 08/30/13 0704 104/61 mmHg 36.5 ??C (97.7 ??F) 55 18 100 % 170.2 cm (5' 7) 53.524 kg (118 lb) Gen: Resting comfortably in hospital bed, dressed in hospital gown. Pulm: Clear to auscultation bilaterally with good inspiratory effort. CV: Regular rate and rhythm, no murmurs/gallops/rubs. Neuro: No focal abnormalities. Cognitive: Alert and oriented to person, place, time; no gross cognitive deficits Remaining exam WNL. A/P: - I have seen and examined the patient. - Proceed with planned ECT procedure. documented in this encounter Procedure Notes * Jeremy Condon MD - 08/30/2013 8:44 AM ESTProcedure(s): ECT Pre-Procedure Diagnose(s): Major depressive disorder, recurrent episode, severe, without mention ofpsychotic behavior ECT SUBSEQUENT TREATMENT NOTE Patient received right-unilateral ECT in the PACU. Course type: acute Treatment # 5 The primary diagnosis is 296.33. Interval history: Mood is improving subjectively, brighter affect, no cognitive side effects. Patient was attached to monitoring equipment. The anesthesia team administered the following medications: methohexital 70 mg succinylcholine 60 mg ECT parameters: RUL 0.3/40/5/800 37 second motor seizure 61 second EEG seizure Patient was stabilized and appeared to tolerate the procedure. Complications: none Changes/recommendations for next treatment: none Next treatment date: 09/06/2013 Route note to: Dr. Alon Davis documented in this encounter Miscellaneous Notes * Miscellaneous - Provider, Scanning - 08/30/2013 7:44 PM EST * Miscellaneous - Provider, Scanning - 08/30/2013 2:41 PM EST documented in this encounter Plan of Treatment Not on file documented as of this encounter Procedures Procedure Name Priority Date/Time Associated Diagnosis Comments ECT (WRVU 2.5) 08/30/2013 8:42 AM EST 296.33 documented in this encounter Visit Diagnoses Not on filedocumented in this encounter Active and Recently Administered Medications Times are shown in EST. Continuous Medication Order 08/28/2013 08/29/2013 08/30/2013 lactated ringers infusion 1,000 mL (CANCELED) 1,000 mL, at 100 mL/hr, Intravenous, CONTINUOUS, Starting on Velia 08/30/13 at 0730, Until Velia 08/30/13 at 0944, Day of Surgery (Day of Procedure) 0730 (Due)0842 (New Bag - Provider: Jeffry Lacey MD)0849 (Anesthesia Volume Adjustment - Provider: Jeffry Lacey MD) documented in this encounter Care Teams News Production Assistant Relationship Specialty Start Date End Date Liang Deluca MD [address] [place] [address] [place] [address] PCP - General 07/14/10 09/29/15 documented as of this encounter
--- OUTSIDE RECORDS SUMMARY | 2024-04-12 11:20 | XMS_ITS | Encounter Summary ---
Author Organization [facility] [place] [address] Care Team Providers Care Business Development Name Role Phone Liang Deluca MD Primary Care Provider Encounter Details Date Type Department Care Team (Late st Contact Info) Description 08/17/2013 9:34 AM EST Anesthesia Event [place] [phone] Suyapa Krishnamurthy MD [facility] [place] [address] Butch Zarate CRNA Anesthesia Record Procedure Summary Procedure Name Responsible Anesthesiologist Anesthesia Start Time Anesthesia Stop Time ECT (WRVU 2.5) Suyapa Krishnamurthy MD 08/17/13 0934 0952 Events Date Time Event Comment 08/17/2013 0934 AN Verify 0934 Start 0934 An Start Data 0934 ASA Monitors 0940 Masked Placed/ Pre O2 0942 0946 An Induction 0947 Bite Block In 0947 ECT Rx 0948 PACU Bed 0950 Quick Note Doses OK for ti tration requiring 2 administrations of ECT 0952 an stop data 0952 Stop Meds Name Total methohexital 70 mg succinylcholine 60 mg * Agents Name O2 Auxiliary Flowmeter 1 * Blood No blood administrations on file. Lines, Drains, and Airways Type Details Placement Removal (RETIRED) Peripheral IV Line - Single Lumen 08/16/13; 2011; 08/30/13; 0922 08/16/132011 by Jes Freeman RN 08/30/13 0922 by Dionne Alegre RN documented in this [...] OR Notes * Anesthesia Postprocedure Evaluation - Suyapa Krishnamurthy MD - 08/17/2013 9:53 AM EST Patient: Aziza Tamez Procedure(s) Performed: Procedure(s): ECT Actual Anesthetic: general Patient location: PACU Post-op pain: Adequate analgesia Post-op nausea: no nausea or vomiting Last Vitals: Filed Vitals: 08/17/13 0601 BP: 97/62 Pulse: 62 Temp: 36.7 ??C (98.1 ??F) Resp: 16 Post-op cardiovascular and respiratory status: is stable Level of consciousness: awake, alert and oriented Complications: no apparent complications and tolerated the procedure well Fluid Status: normal * Anesthesia Preprocedure Evaluation - Suyapa Krishnamurthy MD - 08/17/2013 9:39 AM EST Pre-Anesthesia Evaluation for: Aziza Tamez [...] Pulmonary Assessment: pulmonary exam normal Dental Assessment: [facility] Assessment: Anesthesia Plan: ASA 2 general, with a(n) intravenous induction Consent obtained for series of ECT treatments. Last treatment with 10 years ago complicated by short term memory loss. Treatment changed to unilateral to help prevent this. OK to proceed. Region - Other Informed Consent: Anesthetic plan and risks discussed with patient. Plan discussed with NEWSPAPER LIBRARY MANAGER. [facility]. Assessment: documented in this encounter Plan of Treatment Not on file documented as of this encounter Visit Diagnoses Not on filedocumented in this encounter Administered Medications Inactive Administered Medications - up to 3 most recent administrations Medication Order MAR Action Action Date Dose Rate Site methohexital (BREVITAL) injection PRN, Starting on Tue08/17/13 at 0945, Until Tue08/17/13 at 0952, Anesthesia Intra-op, Routine Given 08/17/2013 9:45 AM EST 70 mg succinylcholine (ANECTINE) injection PRN, Starting on Tue08/17/13 at 0945, Until Tue08/17/13 at 0952, Anesthesia Intra-op, Routine Given 08/17/2013 9:45 AM EST 60 mg documented in this encounter Care Teams Business Development Relationship Specialty Start Date End Date Liang Deluca MD [address] [place] [address] [place] [address] PCP - General 07/14/10 09/29/15 documented as of this encounter
--- OUTSIDE RECORDS SUMMARY | 2024-04-12 11:20 | XMS_ITS | Encounter Summary ---
Author Organization [facility] [place] [address] Care Team Providers Care Ux Specialist Name Role Phone Mallory Hatch MD Primary Care Provider Encounter Details Date Type Department Care Team (Late st Contact Info) Description 08/17/2013 9:00 AM EST - 08/17/2013 9:15 AM EST Surgery [place] [id number] Brandie Rios MD [facility] [place] [address] ECT (WRVU 2.5) Social History Tobacco Use [...] Sign Reading Time Taken Comments Blood Pressure 105/63 08/21/2013 8:20 AM EST Pulse 66 08/21/2013 8:20 AM EST Temperature 36.7 ??C (98.1 ??F) 08/21/2013 6:50 AM ES T Respiratory Rate 16 08/21/2013 8:20 AM EST Oxygen Saturation 96% 08/21/2013 8:20 AM EST Inhaled Oxygen Concentration - - Weight 53.8 kg (118 lb 9.7 oz) 08/15/2013 7:06 P M EST Height 170.2 cm (5' 7) 08/15/2013 7:06 PM EST Body Mass Index 18.58 08/15/2013 7:06 PM EST documented in this encounter Discharge Instructions * Discharge Instructions* Grecia Foreman RN - 08/21/2013 11:15 AM EST Noy Casillas Wed, Aug 29 at 8:00am ECT Treatments Same Day Program Level , Aug 23Tue, Aug 27, Aug 30, Sep 06 * Patient Instructions* Ricardo Vazquez - 08/21/2013 2:08 PM EST PATIENT DISCHARGE INSTRUCTIONS Pending Lab Data at Discharge: None Discharge Disposition: Home Primary Care Physician: MALLORY HATCH MD [phone] Special Physician Instructions: Cytomel should be dcn'ed after pt has completed ECT treatments. Special Instructions Provided to Aziza Fields: Call your doctor, your local mental health center, or your local emergency room if you develop worsening symptoms of depression, anxiety, thoughts of harming yourself, thoughts of harming others, or any other decline in your overall condition. [facility] Emergency Services: [facility] [phone] [facility] Emergency Services: [phone] [facility] Central Access Services: [phone] [facility] [place] Line: [phone] Activity level: no restrictions from psychiatry Diet: no restrictions from psychiatry Driving: do not drive if sedated by medications Medications have been reviewed with the patient and the patient understands the use and side effects of these medications as evidenced by discussions on interdisciplinary rounds. Follow up appointments (external or yet-to-be scheduled): You should discontinue your Cytomel after you have completed your ECT treatments (your last ECT treatment is on 09-06-13). Please see your follow up schedule below. documented in this encounter Medications at Time [...] as of this encounter Progress Notes * Rosalie Giordano RN - 08/21/2013 1:30 PM EST Pt states she slept well. Rates depression 3 and anxiety 9. Denies SI and self harming thoughts since OD. James for safety. No physical pain. Gait steady. ECT without incident. Delicia good. Med compliant. Voiced no questions/concerns about meds. Attending groups; enc to do AIYANA paperwork. Relapseprevention plan completed, copied and in chart. Survey done. Preparing for d/c to home. Left unit with approx 1440. * Elizabeth Smith T - 08/21/2013 11:48 AM EST Inpatient Daily Group Note Group: Goals; Reviewed AIYANA, CUB, Mood Math, patients' progress, patients' goals and read daily text. Attendance: Present Behavior: Expressive Therapeutic Work Observed: Substantial Mood: Anxious Notes: Patient has goals to discharge today, picking up at 2pm, managing her anxiety about going home by journaling, talking, going to groups. Patient described feeling anxious about facing her family/friends after her suicide attempt and worrying about their reactions. GYPSY Martinez ROLANDO, [place] 08/21/2013 Inpatient Daily Group Note Group: Relaxation Group Attendance: Present Behavior: Relevant Therapeutic Work Observed: Moderate Mood: Stable Notes: The group reviewed the stress cycle, the quieting response, and various breathing techniques. Pt practiced mindful breathing. Pt was attentive to the discussion. ALEXANDER ARMSTRONG 08/21/2013 Robert Finley MD - 08/21/2013 10:08 AM EST PSYCHIATRY TEACHING PHYSICIAN INVOLVEMENT Location: Inpatient Psychiatry Attending Physician: JAZMYN Gabriel MD Resident name: Ricardo Vazquez MD I saw and evaluated the patient with the above named resident/ See their note for details. I reviewed the patient's history during the visit and I agree with the details as written. My exam confirms the resident's findings. The assessment and plan were formulated in discussion with me and I agree with them as documented. Major issues addressed/discussed: 1. D/c to home today 2. F/u Dr. Borges and with therapist (tomorrow) 3. F/u outpt ECT Primary Diagnosis: MDD I certify that the patient requires: [x] inpatient care for psychiatric treatment that could reasonably be expected to improve the patient's condition and or diagnostic study. Grecia Sam RN - 08/21/2013 8:44 AM EST Multidisciplinary Treatment Team Note Date: 08/21/2013 Attending MD: Dr. Robert Gabriel Resident: Dr Ricardo Vazquez Patient Mattress Filling Machine Tender: Elin Foreman RN- Maintenance Technician: Judit Gunderson MSW RN: Rosalie Giordano RN Group Therapist: Gypsy Tell Progress: Patient was seen and evaluated by the treatment team. Slept 7 hrs last night and states she slept well with PRN Atarax. Rates depression 3/10 and anxiety 9/10. Denies S/I and is contractingfor safety. Attending groups and engaged in AIYANA programming. She is looking forward to discharge today to get home with her family. She has completed her Relapse Plan. She will continue ECT as an outpatient. Follow up with Dr Davis and Noy Casillas. Plan: Discharge today to home with to follow upw ith Dr Davis, Noy Casillas and outpatient ECT, * Ricardo Vazquez H - 08/21/2013 8:36 AM EST Psychiatry Inpatient - Progress Note ID: Aziza Fields is a 52 y.o. Female with severe major depressive disorder without psychotic features who [place] [facility] in the setting of a recent suicide attempt involving intentional OD of her medications. Pertinent medical issues being addressed: None Interval History: Pt had ECT this AM, but prior to ECT pt stated her family is supportive, particularly her . She has also spoken about having a large family and setting limits upon initial arrival at home. Denies SI/HI and self harming thoughts. CFS. Quality: +Depression, +Anxiety. Has done relapse prevention plan Severity: Depression 2/10 Anxiety 8-9/10 (d/t pending discharge) Timing: Persistent since admission Assoc. signs & sxs: Slept 7 hrs, good appetite and energy levels. Mood is very good Modifying factors: Effect of medications: Beneficial Effect of groups: Finds groups useful Review of Systems: CONST HENT CV No chest pain RESP No shortness of breath GI NEURO MSK Extent of History Determination: Ceferino descriptors, reviewed systems, and level of history with x. HPI Descriptors 1-3 1-3 x 4 + Reviewed Systems 0 1 x 2-9 Level of Hx PF EPF x D Physical Exam: Patient Vitals for the past 24 hrs: BP Temp Temp src Pulse Resp SpO2 08/21/13 0820 105/63 mmHg - - 66 16 96 % 08/21/13 0810 124/61 mmHg - - 67 16 96 % 08/21/13 0800 120/65 mmHg - - 66 16 100 % 08/21/13 0650 116/66 mmHg 36.7 ??C (98.1 ??F) Oral 68 16 97 % 08/20/13 1003 111/72 mmHg - - 61 14 96 % 08/20/13 0953 112/68 mmHg - - 62 14 96 % 08/20/13 0943 104/72 mmHg - - 67 16 100 % Musculoskeletal System: normal based gait. Normal tone. No abnormal movements, tics Mental Status Exam: Appearance: Casually dressed, Adequately groomed ?? Behavior: no psychomotor agitation or slowing, appropriate eye contact, cooperative with interview Speech: low volume Language: normal, fluent Israeli Mood: good Affect: Full, reactive and mood-congruent Thought Process: Linear, logical and goal-directed Associations: intact Thought Content:no SI / no homicidal ideation / non delusional Perception: no hallucinations Orientation: person, place, time/date and situation Attention/Concentration: intact during interview ?? Cognition: grossly intact Memory: Intact Fund of Knowledge: appropriate Insight: Limited to fair Judgment: Limited to fair Extent of Exam Determination: Ceferino completed bullets and level of exam with x. Bullets Completed 1-5 6-8 x 9+ Level of Exam PF EPF x D Scheduled Meds: ??? liothyronine 25 mcg Oral QAM ??? sertraline 200 mg Oral Daily ??? mirtazapine 30 mg Oral Nightly ??? ciprofloxacin 500 mg Oral BID ??? melatonin 6 mg Oral Nightly ??? docusate sodium 100 mg Oral BID PRN Meds:.acetaminophen, ibuprofen, hydrOXYzine, bisacodyl, magnesium hydroxide, senna-docusate Labs (over the last 24hr): No results found for this or any previous visit (from the past 24 hour(s)). Assessment: Aziza Fields is a 52 y.o. Female with severe major depressive disorder without psychotic features who [place] [facility] in the setting of a recent suicide attempt involving intentional OD of her medications. The pt's SA was a patent manifestation of her depression; trigger was likely relatedto unresolved grief from loss of her foster son. It appears that the pt's depression is treatment resistent given that she has failed therapy with multiple medications, including Zoloft, Effexor, Citalopram, Neurotin, Lamictal, Seroquel, Risperdal, and Zyprexa. The pt is receptive to receiving ECT for her depression given the failure of medication therapy and the fact that her reported improvement of her depression when the pt underwent ECT more than 10 yrs ago. The pt consented to R unilateral ECT after this internal communications writer explained to her the indications, risks and benefits of ECT. Pt had expressed concerns abt cognitive side effects of ECT, given that she had had bifrontal in the past, so for now we will remain with RUL ECT unless switching is warranted. Pt's UA was positive for large Leukocytes, c/w catheter-associated UTI from pt's catheterization in [facility] ICU; pt was also symptomatic for her UTI as well, reporting dysuria, which subsequently resolved. Pt was started on Ciprofloxacin as a consequence of her UTI. The pt's BMP on admission was notable for hypokalemia, but this subsequently resolved on repeat BMPs; this was likely d/t the pt's appetite having improved significantly over course of admission. On 08-16 the pt's antidepressants were re-started at half dose (100mg zoloft and 15mg of remeron), and then subsequently titrated to their home dose on 08-17 (200mg and 30mg respectively). On 08-17, the pt was also started on Cytomel for depression augmentation. Today pt continues to convincingly deny having any passive or active suicidal or homicidal ideationand convincingly says she will notify staff if she feels suicidal or violent. No active safety concerns while on unit. Pt has had great response w ECT. She will be discharged today. Status of overall condition: No Change Reasons for continued hospitalization: Stabilization. Monitoring for safety. Medication optimization. Primary Diagnosis: Major depressive disorder, severe without psychotic features Plan: Activity: ETG Diet: Regular R unilateral ECT for Tuesday, Tuesday and Group therapy for coping skills training. Discharge today. Medications: -Zoloft 200 mg PO qd -Mirtazapine 30 mg PO qhs -Ciprofloxacin 500 mg PO bid for UTI, d5 today -Cytomel 25 mcg PO qam -Hydroxyzine 100 mg PO qhs for sleep -Melatonin 6 mg PO qhs for sleep -Will d/c Temazepam and Lorazepam given that pt has reported good effects on anxiety and sleep withHydroxyzine. Labs/Consults/Diagnostic Procedures ordered: None Safety Risk Management: Warrants ongoing inpatient admission for safety, stabilization, and any other therapeutic intervention that could conceivably improve his condition (including medication management, group psychotherapy, establishing adequate outpatient care). Disposition: After stabilization, patient expected to return home. Follow up: Current Psychiatrist: Dr. Alon Davis MD ([facility] [place] [facility]) Current Therapist: Noy Casillas (seeing weekly) PCP: MALLORY HATCH MD Patient Instruction/Education Provided: Patient provided verbal instructions regarding medications and treatment plan. I have reviewed and agree with the multidisciplinary treatment plan. I certify that the patient requires: [x] inpatient care for psychiatric treatment that could reasonably be expected to improve the patient's condition and or diagnostic study. Ricardo Vazquez MD Coding Determination Complexity of MDM Determination: Ceferino [...] Limited Low Low Multiple Moderate Moderate Moderate x Extensive x Extensive x High x High Subsequent Hospital Day Service Code Determination: Ceferino Hx, Exam, MDM & ANDERSON/CPT Code with x. 2 out of # gresham components in the row must be met toqualify. HISTORY EXAM MDM ANDERSON/CPT CODE PF PF Straightforward/Low 3005/05697 EPF EPF Moderate 3015/83970 x D x D x High x 3025/61863 * Alyce Diallo RN - 08/21/2013 8:00 AM EST Received from Minor Procedure Room to PACU bay 17 s/p ECT. Drowsy & alert. Resp reg & even with lungs clear to auscultation throughout all lung tirado. No seizure activity obs. No complaints of pain or nausea voiced. VSS. No acute distress obs. 0828 - Discharged in stable condition with transporter in attendance. No acute distress obs. * Sandra Willson RN - 08/20/2013 8:17 PM EST Psychiatric Nursing Progress Note Fall Risk Completed? (required every 12 hours) yes Assessment (safety, self care, interpersonal issues,psychiatric symptoms, family/support, treatment/med compliance,medical/treatment issues) Patient CFS. She States her depression is a 2-3/10 and anxiety 7-8 /10 mostly due to being discharged tomorrow and ECT. She states her family is supportive, particularly her . She spoke about having a large family and setting limits upon initial arrival at home. She is treatment and medication compliant. Shewill be NPO after midnight for ECT in the morning. Last bm stated as today. Interventions (med administration, groups, level of safety, teaching) Medication administration, no request for additional information CFS Groups ect Purposeful rounding Review fall risk prevention Evaluation (patient response/plan): ECT tomorrow, plan to discharge after, patient will give a copyof wellness plan to nurse tomorrow, working on survey * Jes Ngo MHT - 08/20/2013 11:42 AM EST Inpatient Daily Group Note Group: Goals Notes: Patient at ECT. GYPSY SU MS 08/20/2013 Inpatient Daily Group Note Group: Coping skills Facilitated group brainstorm to identify coping skills pts have tried using. Clarified that coping skills help a person tolerate distress without making things worse (acting impulsively) and that they do not help people feel better. Attendance: Present Behavior: Expressive and Attentive Therapeutic Work Observed: Moderate Mood: Calm Notes: Pt was active in brainstorming part of group. Identified that she can see early warning signs of her recent relapse now looking back. Acknowledged that she has been identifying coping skills working only if she feels better. ALEXANDER DIAMOND 08/20/2013 Inpatient Daily Group Note Group: CBT; reviewed model and focused on negative self-talk and strategies how to challenge thoughts/beliefs to decrease upset and impulsivity. Attendance: Present Behavior: Expressive Therapeutic Work Observed: Substantial Mood: Calm Notes: Patient participated actively and shared ways she has learned and implemented to challenge her thoughts/beliefs. GYPSY SU 08/20/2013 Inpatient Daily Group Note Group: Outside walk Attendance: Present Notes: Pt was appreciative of being outside, social with peers. ALEXANDER DIAMOND 08/20/2013 * Leigh Ann Mo RN - 08/20/2013 9:51 AM EST Pt arrived from minor drowsy, easily arousable, VSS, lungs CTA, IV flushed 10ccNS * Ricardo Vazquez H - 08/20/2013 8:49 AM EST Psychiatry Inpatient - Progress Note ID: Aziza Fields is a 52 y.o. Female with severe major depressive disorder without psychotic features who [place] [facility] in the setting of a recent suicide attempt involving intentional OD of her medications. Pertinent medical issues being addressed: None Interval History: Denies SI and self harming thoughts. CFS. Pt finds journalling to be helpful. Told nursing she regrets SA. As per nursing pt plans to have lock meds away from her, to keep alcohol out of house, and to seek help earlier. Quality: +Depression, +Anxiety. Nervous about ECT this AM, but had excellent response on Tuesday. Severity: Depression 4 10 Anxiety 05/31 (d/t pending ECT this AM) Timing: Persistent since admission Assoc. signs & sxs: Slept 7 hrs, good appetite and energy levels Modifying factors: Effect of medications: Thinks meds are helpful Effect of groups: Finds groups useful Review of Systems: CONST HENT CV No chest pain RESP No shortness of breath GI NEURO MSK Extent of History Determination: Ceferino descriptors, reviewed systems, and level of history with x. HPI Descriptors 1-3 1-3 x 4 + Reviewed Systems 0 1 x 2-9 Level of Hx PF EPF x D Physical Exam: Patient Vitals for the past 24 hrs: BP Temp Temp src Pulse Resp SpO2 08/20/13 0600 107/56 mmHg 36.7 ??C (98.1 ??F) Oral 56 20 99 % Musculoskeletal System: normal based gait. Normal tone. No abnormal movements, tics Mental Status Exam: Appearance: Casually dressed, Adequately groomed ?? Behavior: no psychomotor agitation or slowing, appropriate eye contact, cooperative with interview Speech: low volume Language: normal, fluent Israeli Mood: Anxious Affect: Full, reactive and mood-congruent Thought Process: Linear, logical and goal-directed Associations: intact Thought Content:no SI / no homicidal ideation / non delusional Perception: no hallucinations Orientation: person, place, time/date and situation Attention/Concentration: intact during interview ?? Cognition: grossly intact Memory: Intact Fund of Knowledge: appropriate Insight: Limited to fair Judgment: Limited to fair Extent of Exam Determination: Ceferino completed bullets and level of exam with x. Bullets Completed 1-5 6-8 x 9+ Level of Exam PF EPF x D Scheduled Meds: ??? liothyronine 25 mcg Oral QAM ??? sertraline 200 mg Oral Daily ??? mirtazapine 30 mg Oral Nightly ??? ciprofloxacin 500 mg Oral BID ??? melatonin 6 mg Oral Nightly ??? docusate sodium 100 mg Oral BID PRN Meds:.ibuprofen, hydrOXYzine, bisacodyl, magnesium hydroxide, senna-docusate Labs (over the last 24hr): No results found for this or any previous visit (from the past 24 hour(s)). Assessment: Aziza Fields is a 52 y.o. Female with severe major depressive disorder without psychotic features who presents to [facility] in the setting of a recent suicide attempt involving intentional OD of her medications. The pt's SA was a patent manifestation of her depression; trigger was likely relatedto unresolved grief from loss of her foster son. It appears that the pt's depression is treatment resistent given that she has failed therapy with multiple medications, including Zoloft, Effexor, Citalopram, Neurotin, Lamictal, Seroquel, Risperdal, and Zyprexa. The pt is receptive to receiving ECT for her depression given the failure of medication therapy and the fact that her reported improvement of her depression when the pt underwent ECT more than 10 yrs ago. The pt consented to R unilateral ECT after this internal communications writer explained to her the indications, risks and benefits of ECT. Pt had expressed concerns abt cognitive side effects of ECT, given that she had had bifrontal in the past, so for now we will remain with RUL ECT unless switching is warranted. Pt's UA was positive for large Leukocytes, c/w catheter-associated UTI from pt's catheterization in [facility] ICU; pt was also symptomatic for her UTI as well, reporting dysuria, which subsequently resolved. Pt was started on Ciprofloxacin as a consequence of her UTI. The pt's BMP on admission was notable for hypokalemia, but this subsequently resolved on repeat BMPs; this was likely d/t the pt's appetite having improved significantly over course of admission. On 08-16 the pt's antidepressants were re-started at half dose (100mg zoloft and 15mg of remeron), and then subsequently titrated to their home dose on 08-17 (200mg and 30mg respectively). On 08-17, the pt was also started on Cytomel for depression augmentation. Today pt continues to convincingly deny having any passive or active suicidal or homicidal ideationand convincingly says she will notify staff if she feels suicidal or violent. No active safety concerns while on unit. ECT has been greatly relieving this pt's depression. Status of overall condition: No Change Reasons for continued hospitalization: Stabilization. Monitoring for safety. Medication optimization. Primary Diagnosis: Major depressive disorder, severe without psychotic features Plan: Activity: ETG Diet: Regular R unilateral ECT for Tuesday, Tuesday and Group therapy for coping skills training. Medications: -Zoloft 200 mg PO qd -Mirtazapine 30 mg PO qhs -Ciprofloxacin 500 mg PO bid for UTI, d5 today -Cytomel 25 mcg PO qam -Hydroxyzine 25 mg PO TID for anxiety -Melatonin 6 mg PO qhs for sleep -Will hold Temazepam (for sleep) and Lorazepam (for anxiety) in anticipation of ECT Labs/Consults/Diagnostic Procedures ordered: None Safety Risk Management: Warrants ongoing inpatient admission for safety, stabilization, and any other therapeutic intervention that could conceivably improve his condition (including medication management, group psychotherapy, establishing adequate outpatient care). Disposition: After stabilization, patient expected to return home. Follow up: Current Psychiatrist: Dr. Alon Davis MD ([facility] [place]) Current Therapist: Noy Casillas (seeing weekly) PCP: MALLORY HATCH MD Patient Instruction/Education Provided: Patient provided verbal instructions regarding medications and treatment plan. I have reviewed and agree with the multidisciplinary treatment plan. I certify that the patient requires: [x] inpatient care for psychiatric treatment that could reasonably be expected to improve the patient's condition and or diagnostic study. Ricardo Vazquez MD Coding Determination Complexity of MDM Determination: Ceferino [...] Limited Low Low Multiple Moderate Moderate Moderate x Extensive x Extensive x High x High Subsequent Hospital Day Service Code Determination: Ceferino Hx, Exam, MDM & ANDERSON/CPT Code with x. 2 out of # gresham components in the row must be met toqualify. HISTORY EXAM MDM ANDERSON/CPT CODE PF PF Straightforward/Low 3005/51181 EPF EPF Moderate 3015/62795 x D x D x High x 3025/04826 * Robert Gabriel MD - 08/20/2013 8:38 AM EST PSYCHIATRY TEACHING PHYSICIAN INVOLVEMENT Location: [facility] Psychiatry Attending Physician: JAZMYN Gabriel MD Resident name: Ricardo Vazquez MD I saw and evaluated the patient with the above named resident/ See their note for details. I reviewed the patient's history during the visit and I agree with the details as written. My exam confirms the resident's findings. The assessment and plan were formulated in discussion with me and I agree with them as documented. Major issues addressed/discussed: 1. Pt reports good response to ECT #2 this am. We agreed to plan to continue ECT x 3 this week 2. Group therapy for coping skills training 3. Aftercare planning with Primary Diagnosis: MDD I certify that the patient requires: [x] inpatient care for psychiatric treatment that could reasonably be expected to improve the patient's condition and or diagnostic study. * Rosalie Giordano RN - 08/19/2013 3:01 PM EST Pt states she slept better last noc with benefit from atarax 100mg. Rates depression 5 with anxiety3. Denies SI and self harming thoughts. James for safety. 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 Delicia good. Gait steady. Med compliant. Voiced no questions/concerns about meds. Attending groups; enc to do AIYANA paperwork. in to visit. Attended shinto services. Pt states that journaling is helpful. NPO p MN for ECT in AM; pt aware. * Deb Suie Juan, MS - 08/19/2013 10:53 AM EST Inpatient Daily Group Note Group: Goals; Reviewed AIYANA, CUB, TM&E, patients' progress, patients' goals and read daily text. Attendance: Present Behavior: Expressive Therapeutic Work Observed: Substantial Mood: Anxious Notes: Patient has goal to go with to attend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 Ms. Fields was waiting for her RN to get more information about ECT, she invited me to sit down for a visit. She proceeded to talk about the circumstances leading to her current hospitalization, significant relationships as well as severe losses in her life. Assessment: Patient engaged in a calm and subdued, but clear voice. She spoke with regret of her suicide attempt pondering whether or not she was more regretful about the attempt itself or its 'failure.' She mentioned having pati as well as having lost her pati and desire to go to confucianism following the suicide of her foster son (age 29) 15 months ago. She stated she had been doing well for about a decade following her previous suicide attempt by working, an active family life and with the help of medication, but that she got worse following that suicide of her foster son, who she had raised since he was12 years old. Ms. 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 When talking about her son's suicide she shed a few tears as well as a desire to get over that loss. Intervention and Outcome: Active listening and supportive presence. Ms. Fields openly shared about the last week leading up to her suicide attempt. She stated that she had planned the attempt by saving and stock-pilingher medication. She seemed surprised and puzzled by her own action. Explored the relationship of pati and hope. She stated that she has the former but not the latter. She expressed a desire for a sense of peace and mandy, but those seem to be without her reach or grasp despite the fact she can see them. In this context she expressed gratitude for her family, especially her and son. She appeared puzzled And frustrated at her own inability to hold on to the good in her life, I will have to do my part. Explored curiosity as a stepping stone toward hope. She did mention her son and daughter in law's plan to adopt a baby in a couple of weeks, but did so without expressing any excitementor other emotions. Pondered with her the theme of 'foster child' and 'adoption' and the possible correlation between the loss of her foster son and the timing of her recent suicide attempt so close before the adoption of her first grandchild. In response she mentioned that she herself also grew up in foster care without elaborating on her own experience. Further explored the loss of her foster son. Patient appeared tired of revisiting this loss and expressed a desire to be over it. Patient mentioned that she was somewhat worried about ECT, since she recalls episodes of short term memory loss when she received ECT about a decade ago. She said staff had explained ECT has evolved to the point of mitigating that risk or memory loss significantly, but she wanted to talk more to the RN about it. Follow-up: Patient expressed interest in follow-up visit next week. Will attempt to visit again this coming Tuesday or Tuesday. Explained that homicide squad captain services are available through the staff 14/03, if needed. Time in Direct Care: 40 Minutes. Davide Maza 08/16/2013 documented in this encounter H&P Notes * Brandie Rios MD - 08/16/2013 3:59 PM EST PSYCHIATRY TEACHING PHYSICIAN INVOLVEMENT Location: Inpatient Psychiatry 2E Attending Physician: Brandie Rios MD Resident name: Jorje Simons MD I saw and evaluated the patient with the above named resident/ See their note for details. I reviewed the patient's history during the visit and I agree with the details as written. My exam confirms the resident's findings. The assessment and plan were formulated in discussion with me and I agree with them as documented. Major issues addressed/discussed: 1. Patient is severly depressed, trigger could be related to the unresolved grief to the loss of her foster son. Believes her meds have been working well for her (declined effexor option stating thatshe has tried it before and was not effective), will restart at half the dose (100mg zoloft and 15mg of remeron) to be titrated to the home dose the next day (200mg and 30mg respectively) 2. Consenting to ECT, will put on schedule for tomorrow. Complained of cognitive side effects of ECT, given bifrontal in the past, will stay with RUL unless switching is warranted. 3. Group therapy for coping skills training 4. Symptomatic UTI, started cipro, unless C&S indicate otherwise Primary Diagnosis: MDD I certify that the patient requires: [x] inpatient care for psychiatric treatment that could reasonably be expected to improve the patient's condition and or diagnostic study. * Jorje Simons, DO - 08/15/2013 5:44 PM EST Psychiatry - Admission Note ID Name: Aziza Fields Age: 52 y.o. 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 Alon Davis MD ([facility] [place]) Current Therapist: Noy Casillas (seeing weekly) PCP: MALLORY HATCH MD Chief Complaint: 52 y.o. Female [place] [facility] with a suicide attempt by overdose History of Present Illness: (4) A 52yo female with a history of Major depressive disorder, severe without psychotic features, Generalized anxiety disorder has been transferred from [facility] (ICU / intubated for one day) after a suicide attempt by overdose. Per the record, pt overdosed on 50mg Seroquel x 60, 60mg of lorazepam, some temazepam and possibly Zoloft and Nyquil. Pt was unresponsive and found by her neighbor at home. Pt reports that she overdosed on Tuesday when she was by herself at home (at 10AM). Pt states that she doesn't know why she chose Tuesday as opposed to other days. Pt is unable to cite any triggering event for her suicide attempt. Rather, it's a continuation of what's been going on in herlife (Referring to the psych hospitalization in December of 2012 at [facility]). Pt wishes that she succeeded in committing suicide (she contracts for safety now). Pt doesn't understand why she feels depressed.She mentions that she has good family and friends, but in spite of that, she can't stop thinking that she's worthless. In terms of outpatient treatment, pt is actively seeing Dr. Hi Davis and Noy Casillas (therapist) and taking her meds as prescribed. Mirtazapine 30mg qhs, sertraline 200mg once daily, lorazepam 0.5mgbid prn, temazepam 30mg qhs and quetiapine 50mg bid. She claims that she takes them daily as prescribed except lorazepam. She has recently been taking it more than prescribed as her anxiety has been uncontrollable. Of note, pt mentions that she has received ECT in the past (perhaps 10 years ago). She says that her saw improvement even though she could not tell the difference. Quality: depressed Severity: severe Timing: Assoc. Signs & sxs: feeling like she's worthless and a burden to her family Modifying factors: Duration: depressed for at least since Aug 2012 Context: holiday season where many of her beloved family members (including her foster son last year around this time) Psychiatric Review of Systems: Sustained Depressed Mood: y Sustained Elevated Mood: n Sustained Irritable Mood: n Flashbacks: n Nightmares: n Panic Attacks: Y; a few years ago / not currently Chronic Worry: y Psychotic Symptoms: n Obsessions/compulsions: Y; per record, compulsively cleans when very anxious Violence: n Self Harm: y (see HPI) Other Psychiatric History: Prior diagnoses: Anorexia (a few decades ago), Major Depression, Generalized anxiety with panic attacks Past hospitalization and location: Anorexia, [facility] [place] 1997 and [facility] 1996. Depression, [facility] 06/2001,09/2001 (21 ECTs). Suicide attempt was immediately preceding 09/2001 admission. Most recent [facility] admit was 06/2012. Suicide attempts: One suicide attempt in 2001 by overdose on bottle of clonazepam then immediately called EMS. Past psychiatric medications (include dose, length of use, response, reason for stopping): Zoloft (worked), Citalopram (didn't work) Neurotin, Lamictal, Seroquel, Risperdal, and Zyprexa which she took to help with anger problems Substance Use History/Treatment: Has a history of drinking more when depressed. Non smoker. No druguse. Substance Use History/Treatment: 1. How often do you have a drink containing alcohol? 2 to 4 times a month - (2pt) / glass of wine with her at dinner 2. How many standard drinks containing alcohol do you have a typical day? 1 or 2 - (0pt) 3. How often do you have six or more drinks on one occasion? Never - (0pt) Total Score: 2 In men, a score of 4 or more is considered positive, optimal for identifying hazardous drinking or active alcohol use disorder. In women, a score of 3 or more is considered positive (same as above). Prior to Admission Medications: No current facility-administered medications on file prior to encounter. Current Outpatient Prescriptions on File Prior to Encounter Medication Sig Dispense Refill ??? LORazepam (ATIVAN) 1 mg tablet Take 0.5 tablets by mouth 2 times daily as needed (pt has supply, only using 0.5 mg, usually once per day). Indications: Anxiety 30 tablet 0 ??? mirtazapine (REMERON) 30 mg tablet Take 1 tablet by mouth nightly. Indications: Major Depressive Disorder 30 tablet 0 ??? sertraline (ZOLOFT) 100 mg tablet Take 150 mg by mouth daily. Indications: Major Depressive Disorder ??? temazepam (RESTORIL) 15 mg capsule Take 30 mg by mouth nightly as needed. Indications: Insomnia ??? ibuprofen (ADVIL;MOTRIN) 600 mg tablet Take 600 mg by mouth every 6 hours as needed. Indications: Pain ??? hydroCODone-acetaminophen (VICODIN) 5-500 mg per tablet Take 0.5 tablets by mouth 2 times dailyas needed. Indications: Pain Allergies: Allergies Allergen Reactions ??? Latex CIS - HIVES ??? Sulfa (Sulfonamide Antibiotics) CIS - Hives ??? Gloves, Latex Problem List: Patient Active Problem List Diagnosis Code ??? MDD (major depressive disorder), recurrent episode, severe 296.33 ??? Recur major depress, severe 296.33 ??? Generalized anxiety disorder 300.02 Past, Family, Social History: (1,3) Past Medical/Surgical History: Past Medical History Diagnosis Date ??? Irritable bowel syndrome ??? Depression ??? Anxiety No past surgical history on file. Family Medical/Psychiatric History: (mental illness, substance use, suicide) Sister - depression Another sister - depression and heavy alcohol use. No suicide Social History: Grew up in foster care in [place], [place]. Has 10 siblings, but is only close to some of them. 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 18 years ago when of a heart attack. to current , [place], 13 years ago. Has one son from her previous , 28yo. Enjoys the outdoors, especially kayaking, hiking, biking, gardening and spending time with her large family. 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 ENDO No temperature intolerance HEME/LYMPH No easy bruising ALL/IMMUNO No symptoms of Sinustis Physical Exam: (, , ) ?? Vital signs Patient Vitals for the past 24 hrs: BP Temp Temp src Pulse Resp Height Weight 08/15/13 1906 111/68 mmHg 37.1 ??C (98.8 ??F) Oral 61 16 170.2 cm (5' 7) 53.8 kg (118 lb 9.7 oz) Musculoskeletal System: ?? No atrophy or abnormal movements appreciated / normal gait (See also: MSE: Motor/behavior) GEN No acute distress / generalized weakness HEAD Normocephalic and Atraumatic EYES No scleral icterus, No injection and EOMI ENT Normal dentition NECK No LAD and No thyromegaly CV RRR and No M/G/R PULM Clear to auscultation bilaterally ABD Soft, NT and ND EXTR No C/C/E NEURO Grossly nonfocal SKIN Pressure ulcers and absent Mental Status Evaluation: ?? Appearance: casually dressed / well groomed / good hygiene / sitting on the bed / pleasant Behavior: cooperative / good eye contact ?? Speech: low volume ?? Language: welsh ?? Mood: depressed Affect: mood congruent ?? Thought Process: linear and goal-directed ?? Associations: intact ?? Thought Content: +suicidal ideation (I wish I succeeded in committing suicide) / no homicidal ideation / no violent ideation / no paranoia / no delusions Perception: no hallucinations ?? Orientation: intact ?? Attention/Concentration: intact Cognition: intact ?? Memory: intact ?? Fund of Knowledge: intact ?? Insight: limited to fair Judgment: limited to fair Pertinent Labs/Studies: No results found for this or any previous visit (from the past 24 hour(s)). Assessment/Formulation: Aziza Fields is a 52 y.o. Female who presents to [facility] with severe major depressive disorderwithout psychotic features (sleep disturbance, feeling depressed, lack of interest in life, worthless, helplessness, hopelessness, anergia). Her current suicide attempt is a patent manifestation of her depression. It appears that her outpatient treatment (meds, therapy, etc) has been unsuccessful. Meanwhile, other diagnoses should be further explored, which include alcohol use, generalized anxiety disorder, panic disorder, OCD, and anorexia. Safety Risk Assessment: although pt contracts for safety as an inpatient, pt wishes that she succeeded in committing suicide. Close monitoring is required as an inpatient. Diagnoses: Columbia I: Major depressive disorder, severe without psychotic features Columbia II: deferred (unlikely) Columbia III: Columbia IV: Columbia V: GAF 11 Clinical Global Impression Severity of illness: Considering your total clinical experience with this particular population, how mentally ill is the patient at this time? 7 = Among the most extremely ill patients Immediate Treatment Plan: Admit patient to psychiatry. Activity: Restrict to Unit (RTU) Diet: regular Labs: pending (CMP / CBC) Medications: temazepam 30mg qhs Preventative/Prophylaxis: -Pneumovax and Influenza immunizations to be given as needed -DVT prophylaxis not indicated: patient is at low risk for VTE and is fully ambulatory -If currently a smoker: advised about smoking cessation, will provide cessation material and support Disposition: Estimated length of time needed for hospital staff is 7 days. Proposed post-discharge care will likely include re-establishing follow-up care with existing providers. Team will contact outpatient prescriber and therapist for collateral information and continuity of care. Discussed Advanced Directives and Code Status. The patient wishes to be Full Code. I certify that the patient requires inpatient care for psychiatric treatment that could reasonably be expected to improve the patient's condition and/or diagnostic study. Precertification: Action taken: per [facility] JORJE SIMONS DO 08/15/2013 documented in this encounter Procedure Notes * Jeremy Condon MD - 08/20/2013 9:27 AM ESTProcedure(s): ECT Pre-Procedure Diagnose(s): Major depressive disorder, recurrent episode, severe, without mention ofpsychotic behavior ECT SUBSEQUENT TREATMENT NOTE Patient received right-unilateral ECT in the PACU. Course type: acute Treatment #2; #2 total The primary diagnosis is 296.33. Interval history: tolerated first treatment well. Patient was attached to monitoring equipment. The anesthesia team administered the following medications: methohexital 70 mg succinylcholine 60 mg ECT parameters: 0.3/40/5/800 41 second motor seizure 65 second EEG seizure Patient was stabilized and appeared to tolerate the procedure. Complications: none Changes/recommendations for next treatment: cont with same parameters Next treatment date: 08/23/2013 Route note to: * Brandie Rios MD - 08/17/2013 8:28 AM ESTProcedure(s): ECT Pre-Procedure Diagnose(s): MDD (major depressive disorder), recurrent severe, without psychosis ECT TITRATION NOTE Patient received right unilateral ECT titration in the PACU. The primary diagnosis is 296.33 Relevant history: Severely depressed, s/p OD attempt. Agreeable to ECT, worried about cognitive side effects. Patient was attached to monitoring equipment. The anesthesia team administered the following medications: methohexital 70 mg succinylcholine 60 mg After adequate sedation and relaxation were achieved, patient received ECT using a MECTA device at the following parameters: 0.3/20//800 0 sec EEG seizure 0.3/20/2/800 24 sec motor seizure 38 sec EEG seizure Patient was stabilized and appeared to tolerate the procedure. Complications: none Changes/recommendations/parameters for next treatment: next treatment parameters 0.3/5/800 Next treatment date: 08/21/2013 * Mitchell Bunch MD - 08/15/2013 6:28 PM EST Pre-procedure Diagnoses 1. Major depressive disorder, recurrent episode, severe, without mention of psychotic behavior [296.33] Procedures 1. ECT [[id number] (CPT??)] ECT SUBSEQUENT TREATMENT NOTE Patient received right-unilateral ECT in the PACU. Course type: acute Treatment #3; #3 total The primary diagnosis is 296.33. Interval history: tolerated first treatment well. Reports he is doing well. Patient was attached to monitoring equipment. The anesthesia team administered the following medications: methohexital 70 mg succinylcholine 60 mg ECT parameters: 0.3/5/800 8 second motor seizure 662second EEG seizure Marked difference between toe R an L tracings Patient was stabilized and appeared to tolerate the procedure. Complications: none Changes/recommendations for next treatment: cont with same parameters Next treatment date: 08/23/2013 Route note to: documented in this encounter Miscellaneous Notes * Miscellaneous - Provider, Scanning - 08/23/2013 9:36 AM EST * Miscellaneous - Provider, Scanning - 08/22/2013 12:22 PM EST * Miscellaneous - Provider, Scanning - 08/22/2013 12:22 PM EST * Miscellaneous - Provider, Scanning - 08/22/2013 12:22 PM EST * Miscellaneous - Provider, Scanning - 08/22/2013 9:47 AM EST * Miscellaneous - Provider, Scanning - 08/22/2013 9:47 AM EST * Miscellaneous - Provider, Scanning - 08/22/2013 9:47 AM EST * Miscellaneous - Provider, Scanning - 08/22/2013 9:47 AM EST * Discharge Summary - Ricardo Vazquez H - 08/20/2013 1:48 PM EST Psychiatry Inpatient- Discharge Summary Patient Name: Aziza Fields Patient Age: 52 y.o. Date of : 1960 Admission Date: 08/15/2013 Discharge Date: 08-20-13 Attending Physician: Robert Gabriel MD Resident Physician: Dr. Vazquez Discharge Diagnoses (Hospital Problems) and Secondary Diagnoses (Chronic Problems): Active Hospital Problems Diagnosis ??? MDD (major depressive disorder), recurrent episode, severe Resolved Hospital Problems Diagnosis Date Resolved No resolved problems to display. Active Non-Hospital Problems Diagnosis ??? Generalized anxiety disorder ??? Recur major depress, severe Reason for Hospitalization: Safety, stabilization and medication management. Discharge Multi-axial Diagnosis: Columbia I: Major depressive disorder, severe without psychotic features (primary dx) Columbia II: deferred (unlikely) Columbia III: Columbia IV: Columbia V: GAF 11 History of Presentation: A 52yo female with a history of Major depressive disorder, severe without psychotic features, Generalized anxiety disorder has been transferred from [facility] (ICU / intubated for one day) after a suicide attempt by overdose. Per the record, pt overdosed on 50mg Seroquel x 60, 60mg of lorazepam, some temazepam and possibly Zoloft and Nyquil. Pt was unresponsive and found by her neighbor at home. Pt reports that she overdosed on Tuesday when she was by herself at home (at 10AM). Pt states that she doesn't know why she chose Tuesday as opposed to other days. Pt is unable to cite any triggering event for her suicide attempt. Rather, it's a continuation of what's been going on in herlife (Referring to the psych hospitalization in December of 2012 at [facility]). Pt wishes that she succeeded in committing suicide (she contracts for safety now). Pt doesn't understand why she feels depressed.She mentions that she has good family and friends, but in spite of that, she can't stop thinking that she's worthless. In terms of outpatient treatment, pt is actively seeing Dr. Hi Davis and Noy Casillas (therapist) and taking her meds as prescribed. Mirtazapine 30mg qhs, sertraline 200mg once daily, lorazepam 0.5mgbid prn, temazepam 30mg qhs and quetiapine 50mg bid. She claims that she takes them daily as prescribed except lorazepam. She has recently been taking it more than prescribed as her anxiety has been uncontrollable. Of note, pt mentions that she has received ECT in the past (perhaps 10 years ago). She says that her saw improvement even though she could not tell the difference. Quality: depressed Severity: severe Timing: Assoc. Signs & sxs: feeling like she's worthless and a burden to her family Modifying factors: Duration: depressed for at least since Aug 2012 Context: holiday season where many of her beloved family members (including her foster son last year around this time) Hospital Course: Aziza Fields is a 52 y.o. Female with severe major depressive disorder without psychotic features who presents to [facility] in the setting of a recent suicide attempt involving intentional OD of her medications. She was voluntarily admitted to inpatient psychiatry for safety, stabilization, and medication optimization. The pt's SA was a patent manifestation of her depression; trigger was likely related to unresolved grief from loss of her foster son. It appeared that the pt's depression is treatment resistent given that she has failed therapy with multiple medications, including Zoloft, Effexor, Citalopram, Neurotin, Lamictal, Seroquel, Risperdal, and Zyprexa. The pt was receptive to receiving ECT for her depression given the failure of medication therapy and the fact that her reported improvement of her depression when the pt underwent ECT more than 10 yrs ago. The pt consented to R unilateral ECT after this internal communications writer explained to her the indications, risks and benefits of ECT. Pt had expressed concerns abt cognitive side effects of ECT, given that she had had bifrontal in the past, so we began RUL ECT w a willingness to switch if warranted. Pt's UA was positive for largeLeukocytes, c/w catheter-associated UTI from pt's catheterization in [facility] ICU; ptwas also symptomatic for her UTI as well, reporting dysuria, which subsequently resolved. Pt was sta rted on Ciprofloxacin as a consequence of her UTI. The pt's BMP on admission was notable for hypokalemia, but this subsequently resolved on repeat BMPs; this was likely d/t the pt's appetite having improved significantly over course of admission. CBC/LFTs fairly unremarkable. On 08-16 the pt's antidepressants were re-started at half dose (100mg zoloft and 15mg of remeron), and then subsequently titrated to their home dose on 08-17 (200mg and 30mg respectively). On 08-17, the pt was also started on Cytomel for depression augmentation. Pt had no active safety concerns while on unit. ECT significantly relieved the pt's depression. On the day of discharge, the patient denied thoughts of suicide, homicide, or violence. Follow up was scheduled as described below, and this information was provided to the patient in her After Visit Summary. Patient was also provided with emergency contact information. Important Lab Data: Results for AZIZA FIELDS ( ) as of 08/20/2013 13:53 Ref. Range 08/15/2013 19:41 WBC Latest Range: 4.0-10.0 x10(3)/mcL 10.4 (H) RBC Latest Range: 3.93-5.22 x10(6)/mcL 4.17 Hemoglobin Latest Range: 11.2-15.7 gm/dL 13.4 Hematocrit Latest Range: 34.0-45.0 % 39.9 MCV Latest Range: 79.0-94.0 fL 95.7 (H) MCH Latest Range: 26.6-32.2 pg 32.1 MCHC Latest Range: 32.0-36.5 gm/dL 33.6 RDWSD Latest Range: 35.0-46.0 fL 44.7 RDWCV Latest Range: 10.9-14.4 % 12.8 Platelets Latest Range: 145-370 x10(3)/mcL 179 MPV Latest Range: 9.0-12.0 fL 11.2 Neutr Abs (ANC) Latest Range: 1.50-6.30 x10(3)/mcL 8.04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 >=60 CERNER MILLENNIUM Comment: This estimated GFR (eGFR) value was calculated using the MDRD equation which has been validated on patients between the ages of 18 and 70. The MDRD should not be used to assess kidney function in patients < 18 years of age or in patients with extremes of body mass, or in patients with acute kidney failure. This value should be multiplied by 1.2 for patients. For further information please copy and paste the following links into your internet browser. http://www.nkdep.nih.gov/lab-evaluation.shtml http://www.kidney.org/professionals/ Blood specimen (specimen) 08/15/2013 7:41 PM EST 08/15/2013 7:47 PM EST Narrative Resulting Agency Comment Spec In Lab Mick De Leon MD CHEMISTRY ORDERABLES DORI DORADO documented in this encounter Visit Diagnoses Not on filedocumented in this encounter Active and Recently Administered Medications Times are shown in EST. Scheduled Medication Order 08/19/2013 08/20/2013 08/21/2013 ciprofloxacin (CIPRO) tablet 500 mg 500 mg, Oral, 2 TIMES DAILY, 28 doses, First dose on Tue08/16/13 at 1900, Last dose on Tue08/30/13 at 0700, Routine, Indication for (Active or Suspected): Urinary Tract/Pyelonephritis 0700 (Given - Provider: Candelaria Miller RN)1900 (Given - Provider: Noy Go RN) 0700 (Given - Provider: Candelaria Miller RN)0906 ([facility] Hold - Provider: Admin Adt - Reason: Transfer to a Procedural area)1023 ([facility] Unhold - Provider: Admin Adt)1900 (Given - Provider: Jes Nina, MAHI) 0700 (Canceled Entry - Provider: Sandra Willson RN)0750 ([facility] Hold - Provider: Admin Adt - Reason: Transfer to a Procedural area)0833 ([facility] Unhold - Provider: Admin Adt)0900 (Given - Provider: Rosalie Giordano RN) docusate sodium (COLACE) capsule 100 mg (CANCELED) 100 mg, Oral, 2 TIMES DAILY, First dose on Tue08/15/13 at 2100, Until Discontinued, Routine 0900 (Due - Provider: Admin Adt)2100 (Given - Provider: Adriel Rashid RN) 0906 ([facility] Hold - Provider: Admin Adt - Reason: Transfer to a Procedural area)1023 ([facility] Unhold - Provider: Admin Adt)1028 (Given - Provider: Laura Nayak RN)2100 (Given - Provider: Sandra Willson RN) 0750 ([facility] Hold - Provider: Admin Adt - Reason: Transfer to a Procedural area)0833 ([facility] Unhold - Provider: Admin Adt)0900 (Given - Provider: Rosalie Giordano, MAHI) liothyronine (CYTOMEL) tablet 25 mcg 25 mcg, Oral, EVERY MORNING, First dose on 08/18/13 at 0700, Until Discontinued, Routine 0700 (Given - Provider: Candelaria Miller, MAHI) 0700 (Given - Provider: Candelaria Miller, MAHI)0906 ([facility] Hold - Provider: Admin Adt - Reason: Transfer to a Procedural area)1023 ([facility] Unhold - Provider: Admin Adt) 0700 (Canceled Entry - Provider: Sandra Willson RN)0750 ([facility] Hold - Provider: Admin Adt - Reason: Transfer to a Procedural area)0833 ([facility] Unhold - Provider: Admin Adt)0900 (Given - Provider: Rosalie Giordano RN) melatonin tablet 6 mg 6 mg, Oral, NIGHTLY, First dose on Velia 08/16/13 at 2100, Until Discontinued, Routine 2100 (Given - Provider: Adriel Rashid RN) 0906 ([facility] Hold - Provider: Admin Adt - Reason: Transfer to a Procedural area)1023 ([facility] Unhold - Provider: Admin Adt)2100 (Given - Provider: Sandra Willson, MAHI) 0750 ([facility] Hold - Provider: Admin Adt - Reason: Transfer to a Procedural area)0833 ([facility] Unhold - Provider: Admin Adt) mirtazapine (REMERON) tablet 30 mg 30 mg, Oral, NIGHTLY, First dose (after last modification) on Tue08/17/13 at 2100, Until Discontinued, Routine 2100 (Given - Provider: Adriel Rashid RN) 0906 ([facility] Hold - Provider: Admin Adt - Reason: Transfer to a Procedural area)1023 ([facility] Unhold - Provider: Admin Adt)2100 (Given - Provider: Sandra Willson RN) 0750 ([facility] Hold - Provider: Admin Adt - Reason: Transfer to a Procedural area)0833 ([facility] Unhold - Provider: Admin Adt) sertraline (ZOLOFT) tablet 200 mg (CANCELED) 200 mg, Oral, DAILY, First dose (after last modification) on 08/18/13 at 0900, Until Discontinued, Routine 0900 (Given - Provider: Rosalie Giordano RN) 0906 ([facility] Hold - Provider: Admin Adt - Reason: Transfer to a Procedural area)1023 ([facility] Unhold - Provider: Admin Adt)1029 (Given - Provider: Laura Nayak RN) 0750 ([facility] Hold - Provider: Admin Adt - Reason: Transfer to a Procedural area)0833 ([facility] Unhold - Provider: Admin Adt)0900 (Given - Provider: Rosalie Giordano RN) PRN Medication Order 08/19/2013 08/20/2013 08/21/2013 acetaminophen (TYLENOL) tablet 650 mg (CANCELED) 650 mg, Oral, EVERY 4 HOURS PRN, Starting on 08/20/13 at 1213, Until Tue08/21/13 at 1654, Pain, Maximum dose of acetaminophen is 4000 mg from all sources in 24 hours., Routine 1240 (Given - Provider: Laura Nayak RN) 0750 ([facility] Hold - Provider: Admin Adt - Reason: Transfer to a Procedural area)0833 ([facility] Unhold - Provider: Admin Adt) hydrOXYzine (ATARAX) tablet 100 mg 100 mg, Oral, NIGHTLY PRN, Starting on 08/18/13 at 0913, Until Tue08/21/13 at 1654, sleep, Routine 0906 ([facility] Hold - Provider: Admin Adt - Reason: Transfer to a Procedural area)1023 ([facility] Unhold - Provider: Admin Adt)2122 (Given - Provider: Sandra Willson RN) 0750 ([facility] Hold - Provider: Admin Adt - Reason: Transfer to a Procedural area)0833 ([facility] Unhold - Provider: Admin Adt) ibuprofen (ADVIL;MOTRIN) tablet 600 mg (CANCELED) 600 mg, Oral, EVERY 6 HOURS PRN, Starting on 08/18/13 at 0912, Until Tue08/21/13 at 1654, Pain, Maximum dose of 3200 mg from all sources in 24 hours, Routine 0559 (Given - Provider: Candelaria Miller RN) 0906 ([facility] Hold - Provider: Admin Adt - Reason: Transfer to a Procedural area)1023 ([facility] Unhold - Provider: Admin Adt)1605 (Given - Provider: Jes Nina RN)2155 (Given - Provider: Sandra Willson RN) 0750 ([facility] Hold - Provider: Admin Adt - Reason: Transfer to a Procedural area)0830 ([facility] Unhold - Provider: Admin Adt) documented in this encounter Care Teams Ux Specialist Relationship Specialty Start Date End Date Mallory Hatch MD [address] [place] [id number] PCP - General 07/14/10 09/29/15 documented as of this encounter
--- OUTSIDE RECORDS SUMMARY | 2024-04-12 11:20 | XMS_ITS | Encounter Summary ---
Author Organization [facility] Address [facility] [place] [address] Care Team Providers Care Corporate Risk Analyst Name Role Phone Mallory Hatch MD Primary Care Provider Encounter Details Date Type Department Care Team (Late st Contact Info) Description 08/21/2013 9:45 AM EST - 08/21/2013 10:00 AM EST Surgery [place] [id number] Mitchell Bunch MD [facility] [place] [address] ECT (WRVU 2.5) Social History Tobacco Use [...] Home Primary Care Physician: MALLORY HATCH MD [phone] Special Physician Instructions: Cytomel should be dcn'ed after pt has completed ECT treatments. Special Instructions Provided to Aziza Fields: Call your doctor, your local mental health center, or your local emergency room if you develop worsening symptoms of depression, anxiety, thoughts of harming yourself, thoughts of harming others, or any other decline in your overall condition. [facility] Emergency Services: [facility] [phone] [facility] Emergency Services: [phone] [facility] Central Access Services: [phone] [facility] Main Line: [phone] Activity level: no restrictions from psychiatry Diet: [...] Robert Gabriel Resident: Dr Ricardo Vazquez Patient Brine Maker: Elin Foreman RN- Mines Inspector: Judit Gunderson MSW RN: Rosalie Giordano RN [...] disorder without psychotic features who presents to [facility] in the setting of a recent suicide [...] mmHg - - 67 16 96 % 12/31/13 0800 120/65 mmHg - - 66 16 [...] interview Speech: low volume Language: normal, fluent Ivorian Mood: good Affect: Full, reactive and mood-congruent [...] disorder without psychotic features who presents to [facility] in the setting of a recent suicide [...] consented to R unilateral ECT after this financial writer explained to her the indications, risks and benefits of ECT. Pt had expressed concerns abt cognitive side effects of ECT, given that she had had bifrontal in the past, so for now we will remain with RUL ECT unless switching is warranted. Pt's UA was positive for large Leukocytes, c/w catheter-associated UTI from pt's catheterization in [facility] ICU; pt was also symptomatic for [...] up: Current Psychiatrist: Dr. Alon Davis MD ([facility]) Current Therapist: Noy Casillas (seeing weekly) PCP: [...] EXAM MDM ANDERSON/CPT CODE PF PF Straightforward/Low 3005/36666 EPF EPF Moderate 3015/37265 x D x D x High x 3025/93864 * Alyce Diallo RN - 08/21/2013 8:00 [...] tomorrow, working on survey * Jes Ngo Cydney - 08/20/2013 11:42 AM EST Inpatient Daily [...] implemented to challenge her thoughts/beliefs. GYPSY SU MS 08/20/2013 Inpatient Daily Group Note Group: Outside walk Attendance: Present Notes: Pt was appreciative of being outside, social with peers. ALEXANDER DIAMOND 08/20/2013 * Leigh Ann Mo, RN - 08/20/2013 9:51 AM EST Pt arrived from minor drowsy, easily arousable, VSS, lungs CTA, IV flushed 10ccNS * Ricardo Vazquez H - 08/20/2013 8:49 AM EST Psychiatry Inpatient - Progress Note ID: Aziza Fields is a 52 y.o. Female with severe major depressive disorder without psychotic features who presents to [facility] in the setting of a recent suicide [...] interview Speech: low volume Language: normal, fluent Ivorian Mood: Anxious Affect: Full, reactive and mood-congruent [...] disorder without psychotic features who presents to [facility] in the setting of a recent suicide [...] consented to R unilateral ECT after this financial writer explained to her the indications, risks and benefits of ECT. Pt had expressed concerns abt cognitive side effects of ECT, given that she had had bifrontal in the past, so for now we will remain with RUL ECT unless switching is warranted. Pt's UA was positive for large Leukocytes, c/w catheter-associated UTI from pt's catheterization in [facility] ICU; pt was also symptomatic for [...] up: Current Psychiatrist: Dr. Alon Davis MD ([facility]) Current Therapist: Noy Casillas (seeing weekly) PCP: [...] EXAM MDM ANDERSON/CPT CODE PF PF Straightforward/Low 3005/12855 EPF EPF Moderate 3015/14868 x D x D x High x 3025/46317 * Robert Gabriel MD - 08/20/2013 8:38 [...] pain 3 lowered with IBU early on shift superintendent caustic cresylate. Delicia good. Gait steady. Med compliant. Voiced no questions/concerns about meds. Attending groups; enc to do AIYANA paperwork. in to visit. Attended baptism services. Pt states that journaling is helpful. NPO p MN for ECT in AM; pt aware. * Gypsy Su, MS - 08/19/2013 10:53 AM EST Inpatient Daily Group Note Group: Goals; Reviewed AIYANA, CUB, TM&E, patients' progress, patients' goals and read daily text. Attendance: Present Behavior: Expressive Therapeutic Work Observed: Substantial Mood: Anxious Notes: Patient has goal to go with to attend baptist anabaptist, research ECT, journal and goto groups. GYPSY SU MS 08/19/2013 Inpatient Daily Group Note Group: Open [...] her whole life to become perfect. GYPSY SU MS 08/19/2013 * Alvarado Bain MD - 08/19/2013 [...] Activity level unchanged. Wants to go to holiness services this AM which is appropriate No [...] EXAM MDM ANDERSON/CPT CODE PF PF Straightforward/Low 3005/07160 EPF EPF Moderate 3015/39839 x D x D x High x 3025/86559 * Adriel Rashid RN - 08/18/2013 10:35 [...] Pt. attended with , both actively involved. JSE DOUGLAS 08/18/2013 Inpatient Daily Group Note Group: [...] EXAM MDM ANDERSON/CPT CODE PF PF Straightforward/Low 3005/43781 EPF EPF Moderate 3015/21558 x D x D x High x 3025/22720 * Candelaria Miller RN - 08/18/2013 1:45 AM EST At 1130pm pt states she could not sleep,says she did not sleep last night either.dr transition mgr paged and order received for ambien 5mg [...] disorder without psychotic features who presents to [facility] in the setting of a recent suicide [...] surprised,embarrassed, uncomfortable and like a hypocrite. Teary. [place] better after discussing it. Quality: feeling pretty [...] interview Speech: low volume Language: normal, fluent Ivorian Mood: Depressed Affect: Mood congruent Thought Process: [...] AZIZA FIELDS Ordered By: RICARDO VAZQUEZ MR#: [id number] LOC: 2E /Sex: 1960 (52 years), Female PROCEDURE: Urine Culture SOURCE: U CC COLLECTED: 08/16/2013 17:12 STARTED: 08/16/2013 17:21 PRELIMINARY REPORT Preliminary Report Verified:08/17/2013 10:40 10,000-49,000 cfu/ml Gram Negative Rods Assessment: Aziza Fields is a 52 y.o. Female with severe major depressive disorder without psychotic features who presents to [facility] in the setting of a recent suicide [...] consented to R unilateral ECT after this financial writer explained to her the indications, risks and benefits of ECT. Pt had expressed concerns abt cognitive side effects of ECT, given that she had had bifrontal in the past, so for now we will remain with RUL ECT unless switching is warranted. Pt's UA was positive for large Leukocytes, c/w catheter-associated UTI from pt's catheterization in [facility] ICU; pt was also symptomatic for [...] up: Current Psychiatrist: Dr. Alon Davis MD ([facility]) Current Therapist: Noy Casillas (seeing weekly) PCP: [...] EXAM MDM ANDERSON/CPT CODE PF PF Straightforward/Low 3005/75985 EPF EPF Moderate 3015/55591 x D x D x High x 3025/58820 * Gregory Higgins RN - 08/17/2013 10:01 AM EST 0954 Received from minor procedure room post ECT. Lungs clear, responsive, denies pain, report fromanesthesia.Alarms activated and set appropriately to patients medical history and surgical condition. * Grecia Foreman RN - 08/17/2013 7:52 AM EST Multidisciplinary Treatment Team Note Date: 08/17/2013 Attending MD: Dr. John Bunch Resident: Dr Ricardo Vazquez Patient Brine Maker: Elin [facility]man [facility] Mines Inspector: Judit Gunderson MSW RN: Ava Gonzalez RN Group Therapist: DASIA [...] embarrassed, uncomfortable and like a hypocrite. Teary. [place] better after discussing it. Went for a [...] after MN for possible ECT in AM (transition mgr). * Jes Douglas - 08/16/2013 11:06 AM EST Inpatient Daily Group Note Group: Goals Attendance: did not attend Behavior: Conversational Therapeutic Work Observed: Moderate Mood: Calm Notes: Reviewed AIYANA worksheets for today: CUBS and Climb your Ladder. Pt.'s goal: Patient did not attend group, she was meeting with wheel tuner. Will review paper work later. Inpatient Daily [...] Calm Notes: Pt. attentive although quiet. JES D MILLER 08/16/2013 Inpatient Daily Group Note Group: [...] Davide Maza - 08/16/2013 10:54 AM EST Turning Lathe Tender Encounter Note Patient Name: Aziza Fields : [id number] MR#: [id number] Admit Date: 08/15/2013 6:28 PM Hospital Day 1 day Narrative: Responded to patient's request for wheel tuner visit. Although Ms. 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 Alon Davis MD ([facility]) Current Therapist: Noy Casillas (seeing weekly) PCP: MALLORY HATCH MD Chief Complaint: 52 y.o. Female presents to [facility] with a suicide attempt by overdose History of Present Illness: (4) A 52yo female with a history of Major depressive disorder, severe without psychotic features, Generalized anxiety disorder has been transferred from [facility] (ICU / intubated for one day) after [...] psych hospitalization in December of 2012 at [facility]). Pt wishes that she succeeded in committing [...] hospitalization and location: Anorexia, [facility] in [place] 1997 and [facility] in 1996. Depression, [facility] 06/2001,09/2001 (21 ECTs). Suicide attempt was immediately preceding 09/2001 admission. Most recent [facility] admit was 06/2012. Suicide attempts: One suicide [...] History: Grew up in foster care in [place], [place]. Has 10 siblings, but is only close to some of them. 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 18 years ago when of a heart [...] No Shortness of Breath GI No nausea /PACKAGING COORDINATOR (include LMP if applicable) No polyuria MSK General weakness SKIN No itching NEURO No headache PSYCH see above. ENDO No temperature intolerance HEME/LYMPH No easy bruising ALL/IMMUNO No symptoms of Sinustis Physical Exam: (, , 14) ?? Vital signs Patient Vitals for the [...] contact ?? Speech: low volume ?? Language: german ?? Mood: depressed Affect: mood congruent ?? [...] a 52 y.o. Female who presents to [facility] with severe major depressive disorderwithout psychotic features [...] monitoring is required as an inpatient. Diagnoses: [place] I: Major depressive disorder, severe without psychotic features Mont[place] II: deferred (unlikely) Montreat III: Montreat IV: [place] V: GAF 11 Clinical Global Impression Severity [...] and/or diagnostic study. Precertification: Action taken: per [facility] JORJE SIMONS DO 08/15/2013 documented in this [...] a MECTA device at the following parameters: 0.3/20/1/800 0 sec EEG seizure 0.3/20/2/800 24 sec motor seizure 38 sec EEG seizure Patient was stabilized and appeared to tolerate the procedure. Complications: none Changes/recommendations/parameters for next treatment: next treatment parameters 0.3/40/5/800 Next treatment date: 08/21/2013 * Mitchell Bunch MD - 08/15/2013 6:28 PM EST Pre-procedure Diagnoses 1. Major depressive disorder, recurrent episode, severe, without mention of psychotic behavior [296.33] Procedures 1. ECT [[id number] (CPT??)] ECT SUBSEQUENT TREATMENT NOTE Patient received right-unilateral ECT in the PACU. Course type: acute Treatment #3; #3 total The primary diagnosis is 296.33. Interval history: tolerated first treatment well. Reports he is doing well. Patient was attached to monitoring equipment. The anesthesia team administered the following medications: methohexital 70 mg succinylcholine 60 mg ECT parameters: 0.3/40/5/800 8 second motor seizure 662second EEG seizure [...] stabilization and medication management. Discharge Multi-axial Diagnosis: [place] I: Major depressive disorder, severe without psychotic features (primary dx) [place] II: deferred (unlikely) [place] III: Montreat IV: [place] V: GAF 11 History of Presentation: A 52yo female with a history of Major depressive disorder, severe without psychotic features, Generalized anxiety disorder has been transferred from [facility] (ICU / intubated for one day) after [...] psych hospitalization in December of 2012 at [facility]). Pt wishes that she succeeded in committing [...] disorder without psychotic features who presents to [facility] in the setting of a recent suicide [...] consented to R unilateral ECT after this financial writer explained to her the indications, risks and benefits of ECT. Pt had expressed concerns abt cognitive side effects of ECT, given that she had had bifrontal in the past, so we began RUL ECT w a willingness to switch if warranted. Pt's UA was positive for largeLeukocytes, c/w catheter-associated UTI from pt's catheterization in [facility] ICU; ptwas also symptomatic for her [...] Home Primary Care Physician: MALLORY HATCH MD [phone] Special Physician Instructions: Cytomel should be dcn'ed after pt has completed ECT treatments. Special Instructions Provided to Aziza Fields: Call your doctor, your local [facility], or your local emergency room if you develop worsening symptoms of depression, anxiety, thoughts of harming yourself, thoughts of harming others, or any other decline in your overall condition. [facility] Emergency Services: [facility] [phone] [facility] Emergency Services: [phone] [facility] Central Access Services: [phone] [facility] Main Line: [phone] Activity level: no restrictions from psychiatry Diet: [...] on , 09-06-13). General Instructions Noy Casillas Aug 29 at 8:00am ECT Treatments Same Day Program Level , Aug 23Tue, Aug 27, Aug 30, Sep 06 Follow Up Providers/Appointments (if not listed above): Future Appointments and Orders Future Orders Please Complete By Expires Full code [COD2 Custom] Process Instructions: 1) Ordering MD or SYSTEMS PROJECT MANAGER must provide Order Justification documentation for a: [...] Attending of Record, the ordering MD or SYSTEMS PROJECT MANAGER must obtain (verbal) approval of the Attending [...] Date/Time Associated Diagnosis Comments ECT (WRVU 2.5) 08/21/2013 7:42 AM EST 296.33 BASIC METABOLIC PANEL Routine 08/18/2013 7:33 AM EST BASIC METABOLIC PANEL Routine 08/17/2013 12:15 PM EST URINE CULTURE Routine 08/16/2013 7:07 PM EST [...] Metabolic Panel (non-fasting) (08/18/2013 7:33 AM EST) Pathologist [facility] Glucose 138 60 - 199 mg/dL CERNER MILLENNIUM Comment:Diabetes: >=200 mg/d L plus symptoms Blood Urea Nitrogen 13 8 - 18 mg/dL CERNER MILLENNIUM Creatinine 0.74 0.70 - 1.20 mg/dL CERNER MILLENNIUM Comment: Please note that the pediatric reference intervals supplied above were not validated at [facility]. Results from pediatric patients should be interpreted [...] 8 - 18 mg/dL CERNER MILLENNIUM Comment:result rechecked-[facility] Creatinine 0.81 0.70 - 1.20 mg/dL CERNER MILLENNIUM Comment: Please note that the pediatric reference intervals supplied above were not validated at [facility]. Results from pediatric patients should be interpreted [...] FIELDS ??Ordered By: QUINCY METZ ? MR#: [id number] ?LOC: ??2EPC ? /Sex: ??1960 (52 years), [...] MD MICROBIOLOGY - GENER AL ORDERABLES [facility] * Urine culture (08/16/2013 5:12 PM EST) Urine Culture ? Patient Name: AZIZA FIELDS ??Ordered By: TAYLOR, RICARDO H ? MR#: [id number] ?LOC: ??2EPC ? /Sex: ??1960 (52 years), [...] ? Patient: LACLAIR-PETIT, AZIZA L ? MR#: [id number] ? S=Susceptible ??I=Intermediate ??R=Resistant ??NA=Not Applicable ? [...] (Bezet) 402 ms MUSE SYSTEM Calculated P [place]reat 41 degrees MUSE SYSTEM Calculated R [place] 46 degrees MUSE SYSTEM Calculated T [place] 71 degrees MUSE SYSTEM INTERPRETATION Normal sinus rhythm Normal ECG When compared with ECG of 30-JUN-2012 15:23, Premature ventricular complexes are no longer Present Confirmed by MD MUÑOZ ARMIN ([id number]) on 08/16/2013 7:02:21 PM MUSE SYSTEM 08/16/2013 12:2 7 PM EST 08/16/2013 7:02 PM EST Mick De Leon MD ECG ORDERABLES Performing Organization Address City/[facility]/ZIP Co de Phone Number MUSE SYSTEM * (ABNORMAL) Urinalysis with microscopic [...] Urine Dipstick Clear Clear CERNER MILLENNIUM Specific [place] Urine Automated 1.005 1.002 - 1.030 CERNER [...] Mick De Leon MD HEMATOLOGY ORDERABLE S [facility], [facility] * (ABNORMAL) CMP w/fasting Glucose (08/15/2013 7:41 PM EST) Glucose Fasting 119(H) 65 - 99 mg/dL [facility] QUENTINENNIUM Comment: ?Fasting* Glucose Interpretive [...] of Diabetes Mellitus, Position Statement from the [place] [employer]. ??Diabetes Care, Volume 33, Supplement 1, Aug 2009 Blood Urea Nitrogen 7(L) 8 - 18 mg/dL CERNER MILLENNIUM Creatinine 0.81 0.70 - 1.20 mg/dL CERNER MILLENNIUM Comment: Please note that the pediatric reference intervals supplied above were not validated at [facility]. Results from pediatric patients should be interpreted [...] Provider: Admin Adt)1900 (Given - Provider: Jes Nina RN) 0700 (Canceled Entry - Provider: Sandra Willson [...] - Reason: Transfer to a Procedural area)0833 ([facility] Unhold - Provider: Admin Adt)0900 (Given - Provider: Rosalie Giordano, MAHI) liothyronine (CYTOMEL) tablet 25 mcg 25 mcg, Oral, EVERY MORNING, First dose on 08/18/13 at 0700, Until Discontinued, Routine 0700 (Given - Provider: Candelaria Miller, MAHI) 0700 (Given - Provider: Candelaria Miller, MAHI)0906 ([facility] Hold - Provider: Admin Adt - Reason: Transfer to a Procedural area)1023 ([facility] Unhold - Provider: Admin Adt) 0700 (Canceled Entry - Provider: Sandra Willson RN)0750 ([facility] Hold - Provider: Admin Adt - Reason: Transfer to a Procedural area)0833 ([facility] Unhold - Provider: Admin Adt)0900 (Given - Provider: Rosalie Giordano RN) melatonin tablet 6 mg 6 mg, Oral, NIGHTLY, First dose on Velia 08/16/13 at 2100, Until Discontinued, Routine 2100 (Given - Provider: Adriel Rashid RN) 0906 ([facility] Hold - Provider: Admin Adt - Reason: Transfer to a Procedural area)1023 ([facility] Unhold - Provider: Admin Adt)2100 (Given - Provider: Sandra Willson, MAHI) 0750 ([facility] Hold - Provider: Admin Adt - Reason: Transfer to a Procedural area)0833 ([facility] Unhold - Provider: Admin Adt) mirtazapine (REMERON) tablet 30 mg 30 mg, Oral, NIGHTLY, First dose (after last modification) on Tue08/17/13 at 2100, Until Discontinued, Routine 2100 (Given - Provider: Adriel Rashid RN) 0906 ([facility] Hold - Provider: Admin Adt - Reason: Transfer to a Procedural area)1023 ([facility] Unhold - Provider: Admin Adt)2100 (Given - Provider: Sandra Willson RN) 0750 ([facility] Hold - Provider: Admin Adt - Reason: Transfer to a Procedural area)0833 ([facility] Unhold - Provider: Admin Adt) sertraline (ZOLOFT) tablet 200 mg (CANCELED) 200 mg, Oral, DAILY, First dose (after last modification) on 08/18/13 at 0900, Until Discontinued, Routine 0900 (Given - Provider: Rosalie Giordano RN) 0906 ([facility] Hold - Provider: Admin Adt - Reason: Transfer to a Procedural area)1023 ([facility] Unhold - Provider: Admin Adt)1029 (Given - Provider: Laura Nayak RN) 0750 ([facility] Hold - Provider: Admin Adt - Reason: Transfer to a Procedural area)0833 ([facility] Unhold - Provider: Admin Adt)0900 [...] (Given - Provider: Laura Nayak RN) 0750 ([facility] Hold - Provider: Admin Adt - Reason: Transfer to a Procedural area)0833 ([facility] Unhold - Provider: Admin Adt) hydrOXYzine (ATARAX) tablet 100 mg 100 mg, Oral, NIGHTLY PRN, Starting on 08/18/13 at 0913, Until Tue08/21/13 at 1654, sleep, Routine 0906 ([facility] Hold - Provider: Admin Adt - Reason: Transfer to a Procedural area)1023 ([facility] Unhold - Provider: Admin Adt)2122 (Given - Provider: Sandra Willson RN) 0750 ([facility] Hold - Provider: Admin Adt - Reason: Transfer to a Procedural area)0833 ([facility] Unhold - Provider: Admin Adt) ibuprofen (ADVIL;MOTRIN) tablet 600 mg (CANCELED) 600 mg, Oral, EVERY 6 HOURS PRN, Starting on 08/18/13 at 0912, Until Tue08/21/13 at 1654, Pain, Maximum dose of 3200 mg from all sources in 24 hours, Routine 0559 (Given - Provider: Candelaria Miller RN) 0906 ([facility] Hold - Provider: Admin Adt - Reason: Transfer to a Procedural area)1023 ([facility] Unhold - Provider: Admin Adt)1605 (Given - Provider: Jes Nina RN)2155 (Given - Provider: Sandra Willson RN) 0750 ([facility] Hold - Provider: Admin Adt - Reason: Transfer to a Procedural area)0829 ([facility] Unhold - Provider: Admin Adt) documented in this encounter Care Teams Corporate Risk Analyst Relationship Specialty Start Date End Date Mallory Hatch MD [address] [place] [id number] PCP - General 07/14/10 09/29/15 documented as of this encounter
--- OUTSIDE RECORDS SUMMARY | 2024-04-12 11:20 | XMS_ITS | Encounter Summary ---
Author Organization [facility] [place] [address] Care Team Providers Care Film Rental Clerk Name Role Phone Liang Deluca MD Primary Care Provider Encounter Details Date Type Department Care Team (Late st Contact Info) Description 08/21/2013 7:45 AM EST Anesthesia [place] [phone] Leno Polk MD [facility] [place] [address] Anesthesia Record Procedure Summary Procedure Name Responsible Anesthesiologist Anesthesia Start Time Anesthesia Stop Time ECT (WRVU 2.5) Leno Polk MD 08/21/13 0745 08/21 0758 Events Date Time Event Comment 08/21/2013 0735 0745 AN Verify 0745 Start 0745 An Start Data 0745 ASA Monitors 0749 Masked Placed/ Pre O2 0750 An Induction 0751 Bite Block In 0753 ECT Rx 0757 PACU Bed 0757 an stop data 0758 Stop Meds Name Total methohexital 70 mg succinylcholine 60 mg sodium chloride 0.9% 100 mL * Agents No agents on [...] OR Notes * Anesthesia Postprocedure Evaluation - Leno Polk MD - 08/21/2013 7:59 AM EST Patient: Aziza Tamez Procedure(s) Performed: Procedure(s): ECT Actual Anesthetic: No value filed. Patient location: PACU Post-op pain: Adequate analgesia Post-op nausea: no nausea or vomiting Last Vitals: Filed Vitals: 08/21/13 0650 BP: 116/66 Pulse: 68 Temp: 36.7 ??C (98.1 ??F) Resp: 16 Post-op cardiovascular and respiratory status: is stable Level of consciousness: awake, alert and oriented Complications: no apparent complications and tolerated the procedure well Fluid Status: normal * Anesthesia Preprocedure Evaluation - Leno Polk MD - 08/21/2013 7:35 AM EST Pre-Anesthesia Evaluation for: Aziza Tamez [...] ECT performed by Brandie Rios MD at [facility] MAIN OR History Substance Use Topics [...] Pulmonary Assessment: pulmonary exam normal Dental Assessment: [facility] Assessment: Anesthesia Plan: ASA 2 general, with a(n) intravenous induction Consent obtained for series of ECT treatments. Last treatment with 10 years ago complicated by short term memory loss. Treatment changed to unilateral to help prevent this. OK to proceed. No issues with last treatment. NPO. Region - Other Informed Consent: Anesthetic plan and risks discussed with patient. Plan discussed with OFFICE MACHINES TEACHER. [facility]. Assessment: documented in this encounter Plan of Treatment Not on file documented as of this encounter Visit Diagnoses Not on filedocumented in this encounter Administered Medications Inactive Administered Medications - up to 3 most recent administrations Medication Order MAR Action Action Date Dose Rate Site methohexital (BREVITAL) injection PRN, Starting on Tue08/21/13 at 0750, Until Tue08/21/13 at 0758, Anesthesia Intra-op, Routine Given 08/21/2013 7:50 AM EST 70 mg sodium chloride 0.9% infusion CONTINUOUS PRN, Starting on Tue08/21/13 at 0745, Until Tue08/21/13 at 0758, Anesthesia Intra-op New Bag 08/21/2013 7:45 AM EST mL succinylcholine (ANECTINE) injection PRN, Starting on Tue08/21/13 at 0751, Until e 08/21/13 at 0758, Anesthesia Intra-op, Routine Given 08/21/2013 7:51 AM EST 60 mg documented in this encounter Care Teams Film Rental Clerk Relationship Specialty Start Date End Date Liang Deluca MD [address] [place] [address] [place] [address] PCP - General 07/14/10 09/29/15 documented as of this encounter
--- OUTSIDE RECORDS SUMMARY | 2024-04-12 11:20 | XMS_ITS | Encounter Summary ---
Author Organization [facility] [place] [address] Care Team Providers Care Crowning Inspector Name Role Phone Liang Deluca MD Primary Care Provider Encounter Details Date Type Department Care Team (Late st Contact Info) Description 08/23/2013 9:45 AM EST - 08/23/2013 10:00 AM EST Surgery [place] [phone] Brandie Rios MD [facility] [place] [address] ECT (WRVU 2.5) Social History Tobacco Use [...] Sign Reading Time Taken Comments Blood Pressure 130/71 08/23/2013 9:12 AM EST Pulse 57 08/23/2013 9:12 AM EST Temperature 36.9 ??C (98.4 ??F) 08/23/2013 9:12 AM ES T Respiratory Rate 12 08/23/2013 9:12 AM EST Oxygen Saturation 99% 08/23/2013 9:12 AM EST Inhaled Oxygen Concentration - - Weight 53.5 kg (118 lb) 08/23/2013 6:58 AM EST Height 170.2 cm (5' 7) 08/23/2013 6:58 AM EST Body Mass Index 18.48 08/23/2013 6:58 AM EST documented in this encounter Discharge Instructions * Discharge Instructions* Yessica Wagner RN - 08/23/2013 8:10 AM EST Rest today. Tylenol if needed for headache. For questions/concerns about today's ECT treatment call: After 5pm/weekends call and ask for residential child care counselor on-call. POST ANESTHESIA INSTRUCTIONS Go home, rest, [...] as of this encounter H&P Notes * Reva Cannon MD - 08/23/2013 7:27 AM EST Patient Name: Aziza Tamez Patient Age: 52 y.o. Birthdate: 1960 Admit date: 08/23/2013 Attending Physician: Brandie Rios MD HPI: Aziza Tamez is a 52 y.o. female who has been prescribed ECT. Pertinent history changes since last H&P: none Suicidal ideation: Denies. Homicidal ideation: Denies. ROS: All systems were reviewed and there were no significant complaints except for a mild headache after her last procedure. PE: Patient Vitals for the past 8 hrs: BP Temp Pulse Resp SpO2 Height Weight 08/23/13 0658 127/73 mmHg 36.5 ??C (97.7 ??F) 56 16 100 % 170.2 cm (5' 7) 53.524 [...] patient. - Proceed with planned ECT procedure. REVA CANNON MD documented in this encounter Procedure Notes * Brandie Rios MD - 08/23/2013 8:39 AM ESTProcedure(s): ECT Pre-Procedure Diagnose(s): Major depressive disorder, recurrent episode, severe, without mention ofpsychotic behavior ECT SUBSEQUENT TREATMENT NOTE Patient received right-unilateral ECT in the PACU. Course type: acute Treatment # 3 The primary diagnosis is 296.33. Interval history: Mood is improving subjectively, brighter affect, no cognitive side effects. Patient was attached to monitoring equipment. The anesthesia team administered the following medications: methohexital 70 mg succinylcholine 60 mg ECT parameters: RUL 0.3/40/5/800 28 second motor seizure 59 second EEG seizure Patient was stabilized and appeared to tolerate the procedure. Complications: none Changes/recommendations for next treatment: none Next treatment date: 08/27/13 Route note to: Dr. Alon Davis documented in this encounter Miscellaneous Notes * Miscellaneous - Provider, Scanning - 08/23/2013 8:55 PM EST * Miscellaneous - Provider, Scanning - 08/23/2013 8:16 AM EST documented in this encounter Plan of Treatment Not on file documented as of this encounter Procedures Procedure Name Priority Date/Time Associated Diagnosis Comments ECT (WRVU 2.5) 08/23/2013 8:31 AM EST 296.33 documented in this encounter Visit Diagnoses Not on filedocumented in this encounter Active and Recently Administered Medications Care Teams Crowning Inspector Relationship Specialty Start Date End Date Liang Deluca MD [address] [place] [address] [place] [address] PCP - General 07/14/10 09/29/15 documented as of this encounter
--- OUTSIDE RECORDS SUMMARY | 2024-04-12 11:20 | XMS_ITS | Encounter Summary ---
Author Organization [facility] Address [facility] [place] [address] Care Team Providers Care Poultry Inseminator Name Role Phone Liang Deluca MD Primary Care Provider [phone] Encounter Details Date Type Department Care Team (Latest Contact Info) Description 09/06/2013 6:48 AM EST - 09/06/2013 8:50 AM EST Hospital Encounter [place] [address] Jeremy Condon III, MD [facility] [place] [address] Discharge Disposition: Home Social History Tobacco Use [...] After 5pm/weekends call and ask for president and chief commercial officer on-call. POST ANESTHESIA INSTRUCTIONS Go home, rest, [...] Day of Surgery (Day of Procedure) 0727 ([facility] ider: Sarah Quevedo RN) documented in this encounter Care Teams Poultry Inseminator Relationship Specialty Start Date End Date Liang Deluca MD [address] [place] [address] [place] [address] PCP - General 07/14/10 09/29/15 documented as of this encounter
--- OUTSIDE RECORDS SUMMARY | 2024-04-12 11:20 | XMS_ITS | Encounter Summary ---
Author Organization [facility] [place] [address] Care Team Providers Care Farmworker Turkey Farm Name Role Phone Liang Deluca MD Primary Care Provider Encounter Details Date Type Department Care Team (Late st Contact Info) Description 08/23/2013 8:32 AM EST Anesthesia Event [place] [phone] Suyapa Krishnamurthy MD [facility] [place] [address] Gary Preciado CRNA Anesthesia Record Procedure Summary Procedure Name Responsible Anesthesiologist Anesthesia Start Time Anesthesia Stop Time ECT (WRVU 2.5) Suyapa Krishnamurthy MD 08/23/13 0832 0845 Events Date Time Event Comment 08/23/2013 0832 AN Verify 0832 Start 0832 An Start Data 0832 ASA Monitors 0835 0837 Masked Placed/ Pre O2 0838 An Induction 0839 Bite Block In 0840 ECT Rx 0840 PACU Bed 0845 an stop data 0845 Stop Meds Name Total methohexital 70 mg succinylcholine 60 mg * Agents Name O2 Auxiliary Flowmeter 1 * Blood No blood administrations on file. Lines, Drains, and Airways Type Details Placement Removal (RETIRED) Peripheral IV Line - Single Lumen 08/16/13; 2011; 08/30/13; 92108/16/132011 by Jes Freeman RN 08/30/13921 by Dionne Alegre RN (RETIRED) Peripheral IV Line - Single Lumen 08/23/13; 0718; 08/30/13; 0922 08/23/13 0718 by Leida Antunez RN 08/30/13 09 by Dionne Alegre RN documented in this [...] Postprocedure Evaluation - Suyapa Krishnamurthy MD - 08/23/2013 8:46 AM EST Patient: Aziza Tamez Procedure(s) Performed: Procedure(s): ECT Actual Anesthetic: general Patient location: PACU Post-op pain: Adequate analgesia Post-op nausea: no nausea or vomiting Last Vitals: Filed Vitals: 08/23/13 0658 BP: 127/73 Pulse: 56 Temp: 36.5 ??C (97.7 ??F) Resp: 16 Post-op cardiovascular and respiratory status: is stable Level of consciousness: awake, alert and oriented Complications: no apparent complications and tolerated the procedure well Fluid Status: normal * Anesthesia Preprocedure Evaluation - Suyapa Krishnamurthy MD - 08/23/2013 8:34 AM EST Pre-Anesthesia Evaluation for: Aziza Tamez [...] ECT performed by Brandie Rios MD at [facility] MAIN OR ??? Electroconvulsive therapy,1 seiz 08/20/2013 ECT performed by Jeremy Condon MD at [facility] MAIN OR ??? Electroconvulsive therapy,1 seiz 08/21/2013 ECT performed by Mitchell Bunch MD at [facility] MAIN OR History Substance Use [...] Pulmonary Assessment: pulmonary exam normal Dental Assessment: [facility] Assessment: Anesthesia Plan: ASA 2 general, with a(n) intravenous induction Consent obtained for series of ECT treatments. Last treatment with 10 years ago complicated by short term memory loss. Treatment changed to unilateral to help prevent this. OK to proceed. No issues with last treatment. NPO. Region - Other Informed Consent: Anesthetic plan and risks discussed with patient. Plan discussed with SENIOR RESEARCH FELLOW. [facility]: documented in this encounter Plan of Treatment Not on file documented as of this encounter Visit Diagnoses Not on filedocumented in this encounter Administered Medications Inactive Administered Medications - up to 3 most recent administrations Medication Order MAR Action Action Date Dose Rate Site methohexital (BREVITAL) injection PRN, Starting on Velia 08/23/13 at 0838, Until Velia 08/23/13 at 0845, Anesthesia Intra-op, Routine Given 08/23/2013 8:38 AM EST 70 mg succinylcholine (ANECTINE) injection PRN, Starting on Velia 08/23/13 at 0838, Until Velia 08/23/13 at 0845, Anesthesia Intra-op, Routine Given 08/23/2013 8:38 AM EST 60 mg documented in this encounter Care Teams Farmworker Turkey Farm Relationship Specialty Start Date End Date Liang Deluca MD [address] [place] [address] [place] [address] PCP - General 07/14/10 09/29/15 documented as of this encounter
--- OUTSIDE RECORDS SUMMARY | 2024-04-12 11:20 | XMS_ITS | Encounter Summary ---
Author Organization [facility] [place] [address] Care Team Providers Care Shipfitters Supervisor Name Role Phone Liang Deluca MD Primary Care Provider Encounter Details Date Type Department Care Team (Late st Contact Info) Description 08/27/2013 Telephone Psychiatry [place] [phone] Kar Pollock, RN Social History Tobacco Use [...] Telephone Encounter - Kar Pollock RN - 08/27/2013 8:59 AM EST At 5:17 AM on 08/27/13 this pt left a voicemail stating she was canceling ECT for today dueto bad road conditions in [facility]'. She asked for a return call ([phone]) to reschedule ECT. At 9:02 AM on 08/27/13 a voice was left for patient to call [phone]. At 9:02 AM she called back stating it's pretty bad up here. She reported attempting to drive here, but turning around due to road conditions. We reviewed her next appointments are scheduled for 08/30 and 09/06. She stated she was scheduled to see Dr. Davis today at 12:30 PM, but stated she's going to reschedule this appointment due. She said she would let this life insurance underwriter know when her appointment with Dr. Davis has been re-scheduled to. documented in this encounter Plan of Treatment Not on file documented as of this encounter Visit Diagnoses Not on filedocumented in this encounter Care Teams Shipfitters Supervisor Relationship Specialty Start Date End Date Liang Deluca MD [address] [place] [address] [place] [address] PCP - General 07/14/10 09/29/15 documented as of this encounter
--- OUTSIDE RECORDS SUMMARY | 2024-04-12 11:20 | XMS_ITS | Encounter Summary ---
[facility] Organization [facility] [place] [address] Care Team Providers Care Water Safety Instructor Name Role Phone Mallory Hatch MD Primary Care Provider [phone] Encounter Details Date Type Department Care Team (Latest Contact Info) Description 08/15/2013 6:28 PM EST - 08/21/2013 2:40 PM [facility] Hospital Encounter [address] [place] [address] Mick De Leon MD [facility] [place] [address] Robert Gabriel MD [facility] [place] [address] Recur major depress, severe; MDD (major depressive disorder), recurrent episode, severe Discharge Disposition: Home Social History Tobacco Use [...] Sep 06 * Patient Instructions* Ricardo Vazquez H - 08/21/2013 2:08 PM EST PATIENT DISCHARGE INSTRUCTIONS Pending Lab Data at Discharge: None Discharge Disposition: Home Primary Care Physician: MALLORY HATCH MD [phone] Special Physician Instructions: Cytomel should be dcn'ed after pt has completed ECT treatments. Special Instructions Provided to Rosa Fields: Call your doctor, your local mental health center, or your local emergency room if you develop worsening symptoms of depression, anxiety, thoughts of harming yourself, thoughts of harming others, or any other decline in your overall condition. [facility] Emergency Services: [facility] [phone] [facility] Emergency Services: [phone] [facility] Central Access Services: [phone] [facility] Main Line: [phone] Activity level: no restrictions from psychiatry Diet: [...] last ECT treatment is on , 09-06-13). Please see your follow up schedule [...] unit with approx 1440. * Elizabeth Smith MHT - 08/21/2013 11:48 AM EST Inpatient Daily [...] attempt and worrying about their reactions. GYPSY SU, MS 08/21/2013 Inpatient Daily Group Note Group: Relaxation Group Attendance: Present Behavior: Relevant Therapeutic Work Observed: Moderate Mood: Stable Notes: The group reviewed the stress cycle, the quieting response, and various breathing techniques. Pt practiced mindful breathing. Pt was attentive to the discussion. ALEXANDER ARMSTRONG 08/21/2013 * Robert Gabriel MD - 08/21/2013 10:08 AM EST PSYCHIATRY [...] patient's condition and or diagnostic study. * Grecia Foreman RN - 08/21/2013 8:44 AM EST Multidisciplinary Treatment Team Note Date: 08/21/2013 Attending MD: Dr. Robert Gabriel Resident: Dr Ricardo Vazquez Patient Special Needs Nanny: Elin Foreman RN- Regional Property Manager: Judit Gunderson MSW RN: Rosalie Giordano RN Group Therapist: Gypsy Su Progress: Patient was seen and evaluated by [...] EST Psychiatry Inpatient - Progress Note ID: Rosa Fields is a 52 y.o. Female with severe major depressive disorder without psychotic features who presents to [facility] in the setting of a recent suicide [...] relapse prevention plan Severity: Depression 2/10 Anxiety 8-910 (d/t pending discharge) Timing: Persistent since admission [...] interview Speech: low volume Language: normal, fluent Finnish Mood: good Affect: Full, reactive and mood-congruent [...] visit (from the past 24 hour(s)). Assessment: Rosa Fields is a 52 y.o. Female with severe major depressive disorder without psychotic features who presents to [facility] in the setting of a recent suicide [...] consented to R unilateral ECT after this magnetic tape typewriter operator explained to her the indications, risks and benefits of ECT. Pt had expressed concerns abt cognitive side effects of ECT, given that she had had bifrontal in the past, so for now we will remain with RUL ECT unless switching is warranted. Pt's UA was positive for large Leukocytes, c/w catheter-associated UTI from pt's catheterization in [facility] ICU; pt was also symptomatic for her [...] Current Psychiatrist: Dr. Alon Davis MD ([facility]) Current Therapist: Noy Casillas (seeing weekly) PCP: [...] EXAM MDM ANDERSON/CPT CODE PF PF Straightforward/Low 3005/30320 EPF EPF Moderate 3015/58486 x D x D x High x 3025/58751 * Alyce Diallo RN - 08/21/2013 8:00 [...] attendance. No acute distress obs. * Sandra Willson, MAHI - 08/20/2013 8:17 PM EST Psychiatric Nursing Progress Note Fall Risk Completed? (required every 12 hours) yes Assessment (safety, self care, interpersonal issues,psychiatric symptoms, family/support, treatment/med compliance,medical/treatment issues) Patient CFS. She States her depression is a 2-3/10 and anxiety 7-8 10 mostly due to being discharged tomorrow and [...] tomorrow, working on survey * Jes Ngo [facility] - 08/20/2013 11:42 AM EST Inpatient Daily Group Note Group: Goals Notes: Patient at ECT. GYPSY SU, MS 08/20/2013 Inpatient Daily Group Note Group: [...] EST Psychiatry Inpatient - Progress Note ID: Rosa Fields is a 52 y.o. Female with severe major depressive disorder without psychotic features who presents to [facility] in the setting of a recent suicide [...] had excellent response on Tuesday. Severity: Depression Anxiety 05/31 (d/t pending ECT this AM) [...] interview Speech: low volume Language: normal, fluent Finnish Mood: Anxious Affect: Full, reactive and mood-congruent [...] visit (from the past 24 hour(s)). Assessment: Rosa Fields is a 52 y.o. Female with severe major depressive disorder without psychotic features who presents to [facility] in the setting of a recent suicide [...] consented to R unilateral ECT after this magnetic tape typewriter operator explained to her the indications, risks and benefits of ECT. Pt had expressed concerns abt cognitive side effects of ECT, given that she had had bifrontal in the past, so for now we will remain with RUL ECT unless switching is warranted. Pt's UA was positive for large Leukocytes, c/w catheter-associated UTI from pt's catheterization in [facility] ICU; pt was also symptomatic for her [...] Current Psychiatrist: Dr. Alon Davis MD ([facility]) Current Therapist: Noy Casillas (seeing weekly) PCP: [...] EXAM MDM ANDERSON/CPT CODE PF PF Straightforward/Low 3005/27405 EPF EPF Moderate 3015/71111 x D x D x High x 3025/55105 * Robert Gabriel MD - 08/20/2013 8:38 [...] pain 3 lowered with IBU early on mass spec. Delicia good. Gait steady. Med compliant. Voiced no questions/concerns about meds. Attending groups; enc to do AIYANA paperwork. in to visit. Attended gnosticist services. Pt states that journaling is helpful. NPO p MN for ECT in AM; pt aware. * Sharlene Gypsy Anh, - 08/19/2013 10:53 AM EST Inpatient Daily Group Note Group: Goals; Reviewed AIYANA, CUB, TM&E, patients' progress, patients' goals and read daily text. Attendance: Present Behavior: Expressive Therapeutic Work Observed: Substantial Mood: Anxious Notes: Patient has goal to go with to attend mormonism evangelical, research ECT, journal and goto groups. GYPSY [...] Activity level unchanged. Wants to go to anabaptist services this AM which is appropriate No [...] EXAM MDM ANDERSON/CPT CODE PF PF Straightforward/Low 3005/81389 EPF EPF Moderate 3015/29648 x D x D x High x 3025/97257 * Adriel Rashid, RN - 08/18/2013 10:35 PM EST Pt has been involved in groups and working on journal Reports depression as 11/29; anxiety 01/29. Denies SI/HI. CFS. Denies pain. [...] EXAM MDM ANDERSON/CPT CODE PF PF Straightforward/Low 3005/42114 EPF EPF Moderate 3015/18219 x D x D x High x 3025/12427 * Candelaria Miller RN - 08/18/2013 1:45 AM EST At 1130pm pt states she could not sleep,says she did not sleep last night either. carton repairer paged and order received for ambien 5mg [...] Showered this am and is dressed appropriately. * Jes Douglas - 08/17/2013 2:45 PM EST Inpatient Daily [...] to recent suicide attempt. JES DOUGLAS 08/17/2013 * Mitchell Bunch MD - 08/17/2013 11:54 AM EST PSYCHIATRY [...] EST Psychiatry Inpatient - Progress Note ID: Rosa Fields is a 52 y.o. Female with severe major depressive disorder without psychotic features who presents to [facility] in the setting of a recent suicide [...] surprised,embarrassed, uncomfortable and like a hypocrite. Teary. Muscoda better after discussing it. Quality: feeling pretty good (note that pt was asked question about how she felt after having hadECT); +Depression, +Anxiety Severity: Depression 10 Anxiety 8 Timing: Constant Assoc. signs & [...] interview Speech: low volume Language: normal, fluent Finnish Mood: Depressed Affect: Mood congruent Thought Process: [...] Value Range Urine Culture Value: Patient Name: ROSA FIELDS Ordered By: RICARDO VAZQUEZ MR#: [id number] LOC: 2E /Sex: 1960 (52 years), Female PROCEDURE: Urine Culture SOURCE: U CC COLLECTED: 08/16/2013 17:12 STARTED: 08/16/2013 17:21 PRELIMINARY REPORT Preliminary Report Verified:08/17/2013 10:40 10,000-49,000 cfu/ml Gram Negative Rods Assessment: Rosa Fields is a 52 y.o. Female with severe major depressive disorder without psychotic features who presents to [facility] in the setting of a recent suicide [...] consented to R unilateral ECT after this magnetic tape typewriter operator explained to her the indications, risks and benefits of ECT. Pt had expressed concerns abt cognitive side effects of ECT, given that she had had bifrontal in the past, so for now we will remain with RUL ECT unless switching is warranted. Pt's UA was positive for large Leukocytes, c/w catheter-associated UTI from pt's catheterization in [facility] ICU; pt was also symptomatic for her [...] Current Psychiatrist: Dr. Alon Davis MD ([facility]) Current Therapist: Noy Casillas (seeing weekly) PCP: [...] EXAM MDM ANDERSON/CPT CODE PF PF Straightforward/Low 3005/50996 EPF EPF Moderate 3015/30855 x D x D x High x 3025/89008 * Gregory Higgins RN - 08/17/2013 10:01 AM EST 0954 Received from minor procedure room post ECT. Lungs clear, responsive, denies pain, report fromanesthesia.Alarms activated and set appropriately to patients medical history and surgical condition. * Grecia Foreman RN - 08/17/2013 7:52 AM EST Multidisciplinary Treatment Team Note Date: 08/17/2013 Attending MD: Dr. John Bunch Resident: Dr Ricardo Vazquez Patient Special Needs Nanny: Elin Foreman RN- Regional Property Manager: Judit Gunderson MSW RN: Ava Gonzalez RN [...] embarrassed, uncomfortable and like a hypocrite. Teary. Muscoda better after discussing it. Went for a [...] after MN for possible ECT in AM (carton repairer). * Jes Douglas - 08/16/2013 11:06 AM EST Inpatient Daily Group Note Group: Goals Attendance: did not attend Behavior: Conversational Therapeutic Work Observed: Moderate Mood: Calm Notes: Reviewed AIYANA worksheets for today: CUBS and Climb your Ladder. Pt.'s goal: Patient did not attend group, she was meeting with rounder and backer. Will review paper work later. Inpatient Daily Group Note Group: Stress management Focus of group was use of AIYANA Climb your Ladder. Reviewed this tool using managing anxiety as example. Attendance: Present Behavior: Quiet Therapeutic Work Observed: Moderate Mood: Calm Notes: Attentive, although quiet. JES DOUGLAS 08/16/2013 Inpatient Daily Group Note Group: Communications Focus of group was review of six good communication skills and discussion. Attendance: Present Behavior: Quiet Therapeutic Work Observed: Moderate Mood: Calm Notes: Pt. attentive although quiet. JES DOUGLAS 08/16/2013 Inpatient Daily Group Note Group: Patient [...] Davide Maza - 08/16/2013 10:54 AM EST Dock Boss Encounter Note Patient Name: Rosa Fields : [id number] MR#: [id number] Admit Date: 08/15/2013 6:28 PM Hospital Day 1 day Narrative: Responded to patient's request for rounder and backer visit. Although Ms. 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 Explained that line installer trolley services are available through the staff 14/03, if needed. Time in Direct Care: 40 Minutes. Davide Maza 08/16/2013 documented in this encounter H&P Notes * Brandie Rios MD - 08/16/2013 3:59 PM EST PSYCHIATRY TEACHING PHYSICIAN INVOLVEMENT Location: Inpatient Psychiatry Attending Physician: Brandie Rios MD Resident name: [...] condition and or diagnostic study. * Jorje Simons DO - 08/15/2013 5:44 PM EST Psychiatry - Admission Note ID Name: Rosa Fields Age: 52 y.o. 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 Alon Davis MD ([facility]) Current Therapist: Noy Casillas (seeing weekly) PCP: MALLORY HATCH MD Chief Complaint: 52 y.o. Female presents to [facility] with a suicide attempt by overdose History of Present Illness: (4) A 52yo female with a history of Major depressive disorder, severe without psychotic features, Generalized anxiety disorder has been transferred from [facility] (ICU / intubated for one [...] psych hospitalization in December of 2012 at [facility]). Pt wishes that she succeeded in committing suicide (she contracts for safety now). Pt doesn't understand why she feels depressed.She mentions that she has good family and friends, but in spite of that, she can't stop thinking that she's worthless. In terms of outpatient treatment, pt is actively seeing Dr. Hi Davis and Nyo Casillas (therapist) and taking her meds as [...] attacks Past hospitalization and location: Anorexia, [facility] in [place] 1997 and [facility] in 1996. Depression, [facility] 06/2001,09/2001 (21 ECTs). Suicide attempt was immediately preceding 09/2001 admission. Most recent [facility] admit was 06/2012. Suicide attempts: One suicide [...] History: Grew up in foster care in [place], [place]. Has 10 siblings, but is only close to some of them. 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 Speech: low volume ?? Language: kosovan ?? Mood: depressed Affect: mood congruent ?? [...] visit (from the past 24 hour(s)). Assessment/Formulation: Rosa Fields is a 52 y.o. Female who presents to [facility] with severe major depressive disorderwithout psychotic features [...] monitoring is required as an inpatient. Diagnoses: Williston I: Major depressive disorder, severe without psychotic features Williston II: deferred (unlikely) Williston III: Williston IV: Williston V: GAF 11 Clinical Global Impression Severity [...] and/or diagnostic study. Precertification: Action taken: per [facility] JORJE SIMONS DO 08/15/2013 documented [...] of psychotic behavior [296.33] Procedures 1. ECT [[id number] (CPT??)] ECT SUBSEQUENT TREATMENT NOTE Patient received [...] EST Psychiatry Inpatient- Discharge Summary Patient Name: Rosa Fields Patient Age: 52 y.o. Date of [...] stabilization and medication management. Discharge Multi-axial Diagnosis: Williston I: Major depressive disorder, severe without psychotic features (primary dx) Williston II: deferred (unlikely) Williston III: Williston IV: Williston V: GAF 11 History of Presentation: A 52yo female with a history of Major depressive disorder, severe without psychotic features, Generalized anxiety disorder has been transferred from [facility] (ICU / intubated for one [...] psych hospitalization in December of 2012 at [facility]). Pt wishes that she succeeded in committing [...] last year around this time) Hospital Course: Rosa Fields is a 52 y.o. Female with severe major depressive disorder without psychotic features who presents to [facility] in the setting of a recent suicide [...] consented to R unilateral ECT after this magnetic tape typewriter operator explained to her the indications, risks and benefits of ECT. Pt had expressed concerns abt cognitive side effects of ECT, given that she had had bifrontal in the past, so we began RUL ECT w a willingness to switch if warranted. Pt's UA was positive for largeLeukocytes, c/w catheter-associated UTI from pt's catheterization in [facility] ICU; ptwas also symptomatic for her UTI [...] contact information. Important Lab Data: Results for ROSA FIELDS ( ) as of 08/20/2013 13:53 [...] Latest Range: 0.0-0.2 x10(3)/mcL 0.0 Results for ROSA FIELDS ( ) as of 08/20/2013 13:53 [...] Home Primary Care Physician: MALLORY HATCH MD [phone] Special Physician Instructions: Cytomel should be dcn'ed after pt has completed ECT treatments. Special Instructions Provided to Rosa Grimm ToniaHumberto: Call your doctor, your local [facility], or your local emergency room if you develop worsening symptoms of depression, anxiety, thoughts of harming yourself, thoughts of harming others, or any other decline in your overall condition. [facility] Emergency Services: [facility] [phone] [facility] Emergency Services: [phone] [facility] Central Access Services: [phone] [facility] Main Line: [phone] Activity level: no restrictions from psychiatry Diet: [...] Custom] Process Instructions: 1) Ordering MD or STONEHAND must provide Order Justification documentation for a: [...] Attending of Record, the ordering MD or STONEHAND must obtain (verbal) approval of the Attending [...] Reports feelings of hopelessness. Reports being angry thatjorge didn't succeed, but doesn't know why she [...] (WRVU 2.5) 08/21/2013 7:42 AM EST 296.33 ECT (WRVU 2.5) 08/20/2013 9:27 AM EST 296.33 BASIC METABOLIC PANEL Routine [...] Metabolic Panel (non-fasting) (08/18/2013 7:33 AM EST) [facility] Glucose 138 60 - 199 mg/dL CERNER MILLENNIUM Comment:Diabetes: >=200 mg/d L plus symptoms Blood Urea Nitrogen 13 8 - 18 mg/dL CERNER MILLENNIUM Creatinine 0.74 0.70 - 1.20 mg/dL CERNER MILLENNIUM Comment: Please note that the pediatric reference intervals supplied above were not validated at [facility]. Results from pediatric patients should be interpreted [...] Lab Mick De Leon MD CHEMISTRY ORDERABLES CERNER MILLENNIUM * Basic Metabolic Panel (non-fasting) (08/17/2013 12:15 PM EST) Glucose 179 60 - 199 mg/dL CERNER MILLENNIUM Comment:Diabetes: >=200 mg/d L plus symptoms Blood Urea Nitrogen 16 8 - 18 mg/dL CERNER MILLENNIUM Comment:result rechecked-mkf Creatinine 0.81 0.70 - 1.20 mg/dL CERNER MILLENNIUM Comment: Please note that the pediatric reference intervals supplied above were not validated at [facility]. Results from pediatric patients should be interpreted [...] Mick De Leon MD CHEMISTRY ORDERABLES [facility] * Urine culture Clean Catch Urine (08/16/2013 7:07 PM EST) Urine Culture ? Patient Name: ROSA FIELDS ??Ordered By: QUINCY METZ ? MR#: [id number] ?LOC: ??2EPC ? /Sex: ??1960 (52 years), [...] - GENER AL ORDERABLES [facility] * Urine culture (08/16/2013 5:12 PM EST) Urine Culture ? Patient Name: ROSA FIELDS ??Ordered By: RICARDO VAZQUEZ ? MR#: [id number] ?LOC: ??2EPC ? /Sex: ??1960 (52 years), [...] ? Tobramycin ? S ? Patient: LACLAIR-PETIT, ORSA L ? MR#: [id number] ? S=Susceptible ??I=Intermediate ??R=Resistant ??NA=Not Applicable ? [...] (Bezet) 402 ms MUSE SYSTEM Calculated P Williston 41 degrees MUSE SYSTEM Calculated R Williston 46 degrees MUSE SYSTEM Calculated T Williston 71 degrees MUSE SYSTEM INTERPRETATION Normal sinus [...] Urine Dipstick Clear Clear CERNER MILLENNIUM Specific [place] Urine Automated 1.005 1.002 - 1.030 CERNER [...] Mick De Leon MD HEMATOLOGY ORDERABLE S Performing Organization Address [facility]/ZIP Co de Phone Number CERSHANELL AMOSI[facility] * (ABNORMAL) CBC (with Diff) (08/15/2013 7:41 [...] Mick De Leon MD HEMATOLOGY ORDERABLE S Performing Organization Address [facility]/ZIP Co de Phone Number CERSHANELL AMOSIUM * (ABNORMAL) CMP w/fasting Glucose (08/15/2013 7:41 PM EST) Glucose Fasting 119(H) 65 - 99 mg/dL CERNER MILLENNIUM Comment: ?Fasting* Glucose Interpretive Criteria Normal ?65-99 [...] of Diabetes Mellitus, Position Statement from the [place] [employer] Association. ??Diabetes Care, Volume 33, Supplement 1, Aug 2009 Blood Urea Nitrogen 7(L) 8 - 18 mg/dL CERNER MILLENNIUM Creatinine 0.81 0.70 - 1.20 mg/dL CERNER MILLENNIUM Comment: Please note that the pediatric reference intervals supplied above were not validated at [facility]. Results from pediatric patients should be interpreted [...] Mick De Leon MD CHEMISTRY ORDERABLES [facility] documented in this encounter Visit Diagnoses Diagnosis Recur major depress, severe Major depressive disorder, recurrent episode, severe, without mention of psychotic behavior MDD (major depressive disorder), recurrent episode, severe Major depressive disorder, recurrent episode, severe, without mention of psychotic behavior documented in this encounter Administered Medications Inactive Administered Medications - up to 3 most recent administrations Medication Order MAR Action Action Date Dose Rate Site acetaminophen (TYLENOL) tablet 650 mg 650 mg, Oral, EVERY 4 HOURS PRN, Starting on Tue08/20/13 at 1213, Until Tue08/21/13 at 1654, Pain, Maximum dose of acetaminophen is 4000 mg from all sources in 24 hours., Routine Given 08/20/2013 12:40 PM EST 650 mg ciprofloxacin (CIPRO) tablet 500 mg 500 mg, Oral, 2 TIMES DAILY, 28 doses, First dose on Tue08/16/13 at 1900, Last dose on Tue08/30/13 at 0700, Routine, Indication for (Active or Suspected): Urinary Tract/Pyelonephritis Given 08/21/2013 9:00 AM EST 500 mg Given 08/20/2013 7:00 PM EST 500 mg Given 08/20/2013 7:00 AM EST 500 mg docusate sodium (COLACE) capsule 100 mg 100 mg, Oral, 2 TIMES DAILY, First dose on Tue08/15/13 at 2100, Until Discontinued, Routine Given 08/21/2013 9:00 AM EST 100 mg Given 08/20/2013 9:00 PM EST 100 mg Given 08/20/2013 10:28 AM EST 100 mg hydrOXYzine (ATARAX) tablet 100 mg 100 mg, Oral, NIGHTLY PRN, Starting on 08/18/13 at 0913, Until Tue08/21/13 at 1654, sleep, Routine Given 08/20/2013 9:22 PM EST 100 mg Given 08/18/2013 11:49 PM EST 100 mg hydrOXYzine (ATARAX) tablet 25 mg 25 mg, Oral, 3 TIMES DAILY PRN, Starting on Velia 08/16/13 at 1521, Until 08/18/13 at 0914, Anxiety, Routine Given 08/17/2013 9:15 PM EST 25 mg Given 08/17/2013 3:36 PM EST 25 mg Given 08/17/2013 5:42 AM EST 25 mg ibuprofen (ADVIL;MOTRIN) tablet 600 mg 600 mg, Oral, ONCE PRN, 1 dose, Starting on 08/18/13 at 0653, Until Tue08/18/13 at 0711, Pain, Maximum dose of 3200 mg from all sources in 24 hours, Routine Given 08/18/2013 7:11 AM EST 600 mg ibuprofen (ADVIL;MOTRIN) tablet 600 mg 600 mg, Oral, EVERY 6 HOURS PRN, Starting on Tue08/18/13 at 0912, Until Tue08/21/13 at 1654, Pain, Maximum dose of 3200 mg from all sources in 24 hours, Routine Given 08/20/2013 9:55 PM EST 600 mg Given 08/20/2013 4:05 PM EST 600 mg Given 08/19/2013 5:59 AM EST 600 mg liothyronine (CYTOMEL) tablet 25 mcg 25 mcg, Oral, EVERY MORNING, First dose on 08/18/13 at 0700, Until Discontinued, Routine Given 08/21/2013 9:00 AM EST 25 mcg Given 08/20/2013 7:00 AM EST 25 mcg Given 08/19/2013 7:00 AM EST 25 mcg magnesium hydroxide (MILK OF MAGNESIA) oral suspension 10 mL 10 mL, Oral, DAILY PRN, Starting on 08/15/13 at 1837, Until Tue08/21/13 at 1654, Constipation, 10 mL concentrate = 30 mL regular, Routine Given 08/16/2013 10:56 AM EST 10 mLs melatonin tablet 3 mg 3 mg, Oral, ONCE, 1 dose, On Tue08/17/13 at 2245, Routine Given 08/17/2013 11:03 PM EST 3 mg melatonin tablet 6 mg 6 mg, Oral, NIGHTLY, First dose on Velia 08/16/13 at 2100, Until Discontinued, Routine Given 08/20/2013 9:00 PM EST 6 mg Given 08/19/2013 9:00 PM EST 6 mg Given 08/18/2013 9:00 PM EST 6 mg mirtazapine (REMERON) tablet 15 mg 15 mg, Oral, NIGHTLY, First dose on Tue08/16/13 at 2100, Until Discontinued, Routine Given 08/16/2013 8:5 7 PM EST 15 mg mirtazapine (REMERON) tablet 30 mg 30 mg, Oral, NIGHTLY, First dose (after last modification) on Tue08/17/13 at 2100, Until Discontinued, Routine Given 08/20/2013 9:00 PM EST 30 mg Given 08/19/2013 9:00 PM EST 30 mg Given 08/18/2013 9:00 PM EST 30 mg sertraline (ZOLOFT) tablet 100 mg 100 mg, Oral, DAILY, First dose on Tue08/16/13 at 1100, Until Discontinued, Routine Given 08/17/2013 11:00 AM EST 100 mg Given 08/16/2013 2:41 PM EST 100 mg sertraline (ZOLOFT) tablet 200 mg 200 mg, Oral, DAILY, First dose (after last modification) on 08/18/13 at 0900, Until Discontinued, Routine Given 08/21/2013 9:00 AM EST 200 mg Given 08/20/2013 10:29 AM EST 200 mg Given 08/19/2013 9:00 AM EST 200 mg documented in this encounter Active and Recently Administered Medications Times are shown in EST. Scheduled Medication Order 08/19/2013 08/20/2013 08/21/2013 ciprofloxacin (CIPRO) tablet 500 mg 500 mg, Oral, 2 TIMES DAILY, 28 doses, First dose on Velia 08/16/13 at 1900, Last dose on Velia 08/30/13 at 0700, Routine, Indication for (Active or Suspected): Urinary Tract/Pyelonephritis 0700 (Given - Provider: Candlearia Miller RN)1900 (Given - Provider: Noy Go RN) 0700 (Given - Provider: Candelaria Miller RN)0906 ([facility] Hold - Provider: Admin Adt - Reason: Transfer to a Procedural area)1023 ([facility] Unhold - Provider: Admin Adt)1900 (Given - Provider: Jes Nina, RN) 0700 (Canceled Entry - Provider: Sandra Willson, MAHI)0750 ([facility] Hold - Provider: Admin Adt - Reason: Transfer to a Procedural area)0833 ([facility] Unhold - Provider: Admin Adt)0900 (Given - Provider: Rosalie Giordano, MAHI) docusate sodium (COLACE) capsule 100 mg (CANCELED) 100 mg, Oral, 2 TIMES DAILY, First dose on Tue08/15/13 at 2100, Until Discontinued, Routine 0900 (Due - Provider: Admin Adt)2100 (Given - Provider: Adriel Rashid RN) 0906 ([facility] Hold - Provider: Admin Adt - Reason: Transfer to a Procedural area)1023 ([facility] Unhold - Provider: Admin Adt)1028 (Given - Provider: Laura Nayak RN)2100 (Given - Provider: Sandra Willson, MAHI) 0750 ([facility] Hold - Provider: Admin Adt - Reason: Transfer to a Procedural area)0833 ([facility] Unhold - Provider: Admin Adt)0900 (Given - Provider: Rosalie Giordano, MAHI) liothyronine (CYTOMEL) tablet 25 mcg 25 mcg, Oral, EVERY MORNING, First dose on 08/18/13 at 0700, Until Discontinued, Routine 0700 (Given - Provider: Candelaria Miller RN) 0700 (Given - Provider: Candelaria Miller RN)0906 ([facility] Hold - Provider: Admin Adt - Reason: Transfer to a Procedural area)1023 ([facility] Unhold - Provider: Admin Adt) 0700 (Canceled Entry - Provider: Sandra Willson RN)0750 ([facility] Hold - Provider: Admin Adt - Reason: Transfer to a Procedural area)0833 ([facility] Unhold - Provider: Admin Adt)0900 (Given - Provider: Rosalie Giordano RN) melatonin tablet 6 mg 6 mg, Oral, NIGHTLY, First dose on Velia 08/16/13 at 2100, Until Discontinued, Routine 2100 (Given - Provider: Adriel Rashid RN) 0906 ([facility] Hold - Provider: Admin Adt - Reason: Transfer to a Procedural area)1023 ([facility] Unhold - Provider: Admin Adt)2100 (Given - Provider: Sandra Willson RN) 0750 ([facility] Hold - Provider: Admin Adt - Reason: Transfer to a Procedural area)0833 ([facility] Unhold - Provider: Admin Adt) mirtazapine (REMERON) tablet 30 mg 30 mg, Oral, NIGHTLY, First dose (after last modification) on Tue08/17/13 at 2100, Until Discontinued, Routine 2100 (Given - Provider: Adriel Rashid RN) 0906 ([facility] Hold - Provider: Admin Adt - Reason: Transfer to a Procedural area)1023 ([facility] Unhold - Provider: Admin Adt)2100 (Given - Provider: Sandra Willson RN) 0750 ([facility] Hold - Provider: Admin Adt - Reason: Transfer to a Procedural area)0833 ([facility] Unhold - Provider: Admin Adt) sertraline (ZOLOFT) tablet 200 mg (CANCELED) 200 mg, Oral, DAILY, First dose (after last modification) on Tue08/18/13 at 0900, Until Discontinued, Routine 0900 (Given - Provider: Rosalie Giordano RN) 0906 ([facility] Hold - Provider: Admin Adt - Reason: Transfer to a Procedural area)1023 ([facility] Unhold - Provider: Admin Adt)1029 (Given - Provider: Laura Nayak RN) 0750 ([facility] Hold - Provider: Admin Adt - Reason: Transfer to a Procedural area)0833 ([facility] Unhold - Provider: Admin Adt)0900 (Given - Provider: Rosalie Giordano, MAHI) PRN Medication Order 08/19/2013 08/20/2013 08/21/2013 acetaminophen (TYLENOL) tablet 650 mg (CANCELED) 650 mg, Oral, EVERY 4 HOURS PRN, Starting on Tue08/20/13 at 1213, Until Tue08/21/13 at 1654, Pain, Maximum dose of acetaminophen is 4000 mg from all sources in 24 hours., Routine 1240 (Given - Provider: Laura Nayak RN) 0750 ([facility] Hold - Provider: Admin Adt - Reason: Transfer to a Procedural area)0833 ([facility] Unhold - Provider: Admin Adt) hydrOXYzine (ATARAX) tablet 100 mg 100 mg, Oral, NIGHTLY PRN, Starting on 08/18/13 at 0913, Until Tue08/21/13 at 1654, sleep, Routine 0906 ([facility] Hold - Provider: Admin Adt - Reason: Transfer to a Procedural area)1023 ([facility] Unhold - Provider: Admin Adt)2122 (Given - Provider: Sandra Willson, MAHI) 0750 ([facility] Hold - Provider: Admin Adt - Reason: Transfer to a Procedural area)0833 ([facility] Unhold - Provider: Admin Adt) ibuprofen (ADVIL;MOTRIN) tablet 600 mg (CANCELED) 600 mg, Oral, EVERY 6 HOURS PRN, Starting on 08/18/13 at 0912, Until Tue08/21/13 at 1654, Pain, Maximum dose of 3200 mg from all sources in 24 hours, Routine 0559 (Given - Provider: Candelaria Miller RN) 0906 ([facility] Hold - Provider: Admin Adt - Reason: Transfer to a Procedural area)1023 ([facility] Unhold - Provider: Admin Adt)1605 (Given - Provider: Jes Nina RN)2155 (Given - Provider: Sandra Willson RN) 0750 ([facility] Hold - Provider: Admin Adt - Reason: Transfer to a Procedural area)0833 ([facility] Unhold - Provider: Admin Adt) documented in this encounter Care Teams Water Safety Instructor Relationship Specialty Start Date End Date Mallory Hatch MD [address] [place] [id number] PCP - General 07/14/10 09/29/15 documented as of this encounter
--- OUTSIDE RECORDS SUMMARY | 2024-04-12 11:20 | XMS_ITS | Encounter Summary ---
Author Organization [facility] Address [facility] [place] [address] Care Team Providers Care Web Portal Developer Name Role Phone Liang Deluca MD Primary Care Provider Encounter Details Date Type Department Care Team (Latest Contact Info) Description 08/30/2013 6:07 AM EST - 08/30/2013 9:45 AM EST Hospital En[place] [address] Jeremy Condon III, MD [facility] [place] [address] Discharge Disposition: Home Social History Tobacco Use [...] 5pm/weekends call and ask for residential roofer on-call. POST ANESTHESIA INSTRUCTIONS Go home, rest, [...] MD) documented in this encounter Care Teams Web Portal Developer Relationship Specialty Start Date End Date Liang Deluca MD [address] [place] [address] [place] [address] PCP - General 07/14/10 09/29/15 documented as of this encounter
--- OUTSIDE RECORDS SUMMARY | 2024-04-12 11:20 | XMS_ITS | Encounter Summary ---
Author Organization [facility] [place] [address] Care Team Providers Care Gas Worker Name Role Phone Liang Deluca MD Primary Care Provider Encounter Details Date Type Department Care Team (Late st Contact Info) Description 08/30/2013 8:42 AM EST Anesthesia Event [place] [id number] Jeffry Lacey MD [facility] [place] [address] Beni Pride CRNA Anesthesia Record Procedure Summary Procedure Name Responsible Anesthesiologist Anesthesia Start Time Anesthesia Stop Time ECT (WRVU 2.5) Jeffry Lacey MD 08/30/13 0842 08/30 0854 Events Date Time Event Comment 08/30/2013 0842 0842 AN Verify 0842 Start 0842 An Start Data 0843 ASA Monitors 0846 Masked Placed/ Pre O2 0847 An Induction 0850 Bite Block In 0850 ECT Rx 0853 PACU Bed 0854 an stop data 0854 Stop Meds Name Total methohexital 70 mg succinylcholine 60 mg lactated ringers infusion 1,000 mL 0 mL * Agents No agents on file. * Blood No blood administrations on file. Lines, Drains, and Airways Type Details Placement Removal (RETIRED) Peripheral IV Line - Single Lumen 08/16/13; 2011; 08/30/13; 92108/16/132011 by Jes Freeman RN 08/30/13921 by Dionne Alegre RN (RETIRED) Peripheral IV Line - Single Lumen 08/23/13; 0718; 08/30/13; 92108/23/13 0718 by Leida Antunez RN 08/30/13921 by Dionne Alegre RN (RETIRED) Peripheral IV Line - Single Lumen 08/30/13; 0729; 08/30/13; 92108/30/13 07 by Flavia Hightower RN 08/30/13921 by Dionne Alegre RN documented [...] OR Notes * Anesthesia Postprocedure Evaluation - Jeffry Lacey MD - 08/30/2013 9:10 AM EST Patient: Aziza Tamez Procedure(s) Performed: Procedure(s): ECT Actual Anesthetic: general Patient location: PACU Post-op pain: Adequate analgesia Post-op nausea: no nausea or vomiting Last Vitals: Filed Vitals: 08/30/13 0900 BP: 120/68 Pulse: 63 Temp: Resp: 16 Post-op cardiovascular and respiratory status: is stable Level of consciousness: awake, alert and oriented Complications: no apparent complications and tolerated the procedure well Fluid Status: normal * Anesthesia Preprocedure Evaluation - Jeffry Lacey MD - 08/30/2013 8:39 AM EST Pre-Anesthesia Evaluation for: Aziza Tamez [...] ECT performed by Brandie Rios MD at [facility] MAIN OR ??? Electroconvulsive therapy,1 seiz 08/20/2013 ECT performed by Jeremy Condon MD at [facility] MAIN OR ??? Electroconvulsive therapy,1 seiz 08/21/2013 ECT performed by Mitchell Bunch MD at [facility] MAIN OR ??? Electroconvulsive therapy,1 seiz 08/23/2013 ECT performed by Brandie Rios MD at [facility] MAIN OR History Substance Use Topics ??? [...] limits mouth opening Cardiovascular Assessment: Pulmonary Assessment: pulmonary exam normal Dental Assessment: [facility] Assessment: IV access: Peripheral line Anesthesia Plan: ASA 2 general, with a(n) intravenous induction No issues with last treatment. NPO. No changes in health. Use previous doses. Region - Other Informed Consent: Anesthetic plan and risks discussed with patient. Plan discussed with BOAT PAINTER. [facility]. Assessment: documented in this encounter Plan of [...] 0944, Day of Surgery (Day of Procedure) New Bag 08/30/2013 8:42 AM EST mL methohexital (BREVITAL) injection PRN, Starting on Velia 08/30/13 at 0847, Until Velia 08/30/13 at 0854, Anesthesia Intra-op, Routine Given 08/30/2013 8:47 AM EST 70 mg succinylcholine (ANECTINE) injection PRN, Starting on Velia 08/30/13 at 0847, Until Velia 08/30/13 at 0854, Anesthesia Intra-op, Routine Given 08/30/2013 8:47 AM EST 60 mg documented in this encounter Care Teams Gas Worker Relationship Specialty Start Date End Date Liang Deluca MD [address] [place] [address] [place] [address] PCP - General 07/14/10 09/29/15 documented as of this encounter
--- OUTSIDE RECORDS SUMMARY | 2024-04-12 11:20 | XMS_ITS | Encounter Summary ---
Author Organization [facility] [place] [address] Care Team Providers Care Manufacturing Development Engineer Name Role Phone Liang Deluca MD Primary Care Provider [phone] Encounter Details Date Type Department Care Team (Latest Contact Info) Description 08/23/2013 6:22 AM EST - 08/23/2013 9:47 AM EST Hospital En[place] [address] Brandie Rios MD [facility] [place] [address] Discharge Disposition: Home Social History Tobacco Use [...] call: After 5pm/weekends call and ask for consultant luxury and auto. vice president [employer] (ex ) on-call. POST ANESTHESIA INSTRUCTIONS Go home, rest, [...] Active and Recently Administered Medications Care Teams Manufacturing Development Engineer Relationship Specialty Start Date End Date Liang Deluca MD [address] [place] [address] [place] [address] PCP - General 07/14/10 09/29/15 documented as of this encounter
--- OUTSIDE RECORDS SUMMARY | 2024-04-12 11:20 | XMS_ITS | Encounter Summary ---
Author Organization [facility] Address [facility] [place] [address] Care Team Providers Care Baker Bread Name Role Phone Mallory Hatch MD Primary Care Provider [phone] Encounter Details Date Type Department Care Team (Late st Contact Info) Description 08/20/2013 9:30 AM EST - 08/20/2013 9:45 AM EST Surgery [place] [id number] Jeremy Condon III, MD [facility] [place] [address] ECT (VU 2.5) Social History Tobacco Use Types Packs/Day [...] Home Primary Care Physician: MALLORY HATCH MD [phone] Special Physician Instructions: Cytomel should be dcn'ed after pt has completed ECT treatments. Special Instructions Provided to Aziza Fields: Call your doctor, your local mental health center, or your local emergency room if you develop worsening symptoms of depression, anxiety, thoughts of harming yourself, thoughts of harming others, or any other decline in your overall condition. [facility] Emergency Services: [facility] [phone] [facility] Emergency Services: [phone] [facility] Central Access Services: [phone] [facility] Main Line: [phone] Activity level: no restrictions from psychiatry Diet: [...] End Date mirtazapine (REMERON) 30 mg tabletIndications:cris hamm disorder Take 1 tablet by mouth nightly. [...] unit with approx 1440. * Elizabeth Smith Cydney - 08/21/2013 11:48 AM EST Inpatient Daily [...] INVOLVEMENT Location: Inpatient Psychiatry 2E Attending Physician: JAZMYN Gabriel MD Resident name: [...] Robert Gabriel Resident: Dr Ricardo Vazquez Patient Emergency Medical Technician: Elin Foreman RN- Wrapping Checker: Judit Gunderson MSW RN: Rosalie Giordano RN [...] disorder without psychotic features who presents to [facility] in the setting of a recent suicide [...] interview Speech: low volume Language: normal, fluent Prydeinig Mood: good Affect: Full, reactive and mood-congruent [...] disorder without psychotic features who presents to [facility] in the setting of a recent suicide [...] consented to R unilateral ECT after this press writer explained to her the indications, risks [...] home. Follow up: Current Psychiatrist: Dr. Alon Dvais MD ([facility]) Current Therapist: Noy Casillas (seeing [...] EXAM MDM ANDERSON/CPT CODE PF PF Straightforward/Low 3005/90317 EPF EPF Moderate 3015/68932 x D x D x High x 3025/44673 * Alyce Diallo RN - 08/21/2013 8:00 [...] tomorrow, working on survey * Jes Ngo [facility] - 08/20/2013 11:42 AM EST [...] and implemented to challenge her thoughts/beliefs. GYPSY SU, 08/20/2013 Inpatient Daily Group Note Group: Outside [...] disorder without psychotic features who presents to [facility] in the setting of a recent suicide [...] interview Speech: low volume Language: normal, fluent Prydeinig Mood: Anxious Affect: Full, reactive and mood-congruent [...] disorder without psychotic features who presents to [facility] in the setting of a recent suicide [...] consented to R unilateral ECT after this press writer explained to her the indications, risks [...] up: Current Psychiatrist: Dr. Alon Davis MD ([facility]) Current Therapist: Noy Casillas (seeing [...] EXAM MDM ANDERSON/CPT CODE PF PF Straightforward/Low 3005/27545 EPF EPF Moderate 3015/52895 x D x D x High x 3025/87520 * Robert Gabriel MD - 08/20/2013 8:38 [...] pain 3 lowered with IBU early on mine shifter. Delicia good. Gait steady. Med compliant. Voiced no questions/concerns about meds. Attending groups; enc to do AIYANA paperwork. in to visit. Attended jehovah's witness services. Pt states that journaling is helpful. NPO p MN for ECT in AM; pt aware. * Gypsy Su, MS - 08/19/2013 10:53 AM EST Inpatient Daily Group Note Group: Goals; Reviewed AIYANA, CUB, TM&E, patients' progress, patients' goals and read daily text. Attendance: Present Behavior: Expressive Therapeutic Work Observed: Substantial Mood: Anxious Notes: Patient has goal to go with to attend [facility], research ECT, journal and goto groups. GYPSY [...] Activity level unchanged. Wants to go to mormonism services this AM which is appropriate No [...] EXAM MDM ANDERSON/CPT CODE PF PF Straightforward/Low 3005/08213 EPF EPF Moderate 3015/96319 x D x D x High x 3025/06511 * Adriel Rashid RN - 08/18/2013 10:35 [...] hours: Narrative: No events per nursing report. Rsoalie requests that patient have privileges to go [...] EXAM MDM ANDERSON/CPT CODE PF PF Straightforward/Low 3005/65115 EPF EPF Moderate 3015/51643 x D x D x High x 3025/22855 * Candelaria Miller RN - 08/18/2013 1:45 AM EST At 1130pm pt states she could not sleep,says she did not sleep last night either.dr program control analyst paged and order received for ambien 5mg [...] Showered this am and is dressed appropriately. HARTH * Jes Douglas - 08/17/2013 2:45 PM [...] to recent suicide attempt. JES DOUGLAS 08/17/2013 HARTH * Mitchell Bunch MD - 08/17/2013 11:54 [...] disorder without psychotic features who presents to [facility] in the setting of a recent suicide [...] surprised,embarrassed, uncomfortable and like a hypocrite. Teary. Superior better after discussing it. Quality: feeling pretty good (note that pt was asked question about how she felt after having hadECT); +Depression, +Anxiety Severity: Depression Anxiety 03/31 Timing: Constant Assoc. signs & sxs: Mood [...] interview Speech: low volume Language: normal, fluent Prydeinig Mood: Depressed Affect: Mood congruent Thought Process: [...] AZIZA FIELDS Ordered By: RICARDO VAZQUEZ MR#: [id number] LOC: 2EPC /Sex: 1960 (52 years), Female PROCEDURE: Urine Culture SOURCE: U CC COLLECTED: 08/16/2013 17:12 STARTED: 08/16/2013 17:21 PRELIMINARY REPORT Preliminary Report Verified:08/17/2013 10:40 10,000-49,000 cfu/ml Gram Negative Rods Assessment: Aziza Fields is a 52 y.o. Female with severe major depressive disorder without psychotic features who presents to [facility] in the setting of a recent suicide [...] consented to R unilateral ECT after this press writer explained to her the indications, risks [...] up: Current Psychiatrist: Dr. Alon Davis MD ([facility]) Current Therapist: Noy Casillas (seeing [...] EXAM MDM ANDERSON/CPT CODE PF PF Straightforward/Low 3005/99937 EPF EPF Moderate 3015/24254 x D x D x High x 3025/80475 * Gregory Higgins RN - 08/17/2013 10:01 AM EST 0954 Received from minor procedure room post ECT. Lungs clear, responsive, denies pain, report fromanesthesia.Alarms activated and set appropriately to patients medical history and surgical condition. * Grecia Foreman RN - 08/17/2013 7:52 AM EST Multidisciplinary Treatment Team Note Date: 08/17/2013 Attending MD: Dr. John Bunch Resident: Dr Ricardo Vazquez Patient Emergency Medical Technician: El[facility]man [facility] Wrapping Checker: Judit Gunderson MSW RN: Ava Gonzalez RN Group Therapist: DASIA Neri Progress: Patient was seen and evaluated by the treatment team. Slept 6.5 hrs last night with [facility]As due to anxiety about ECT tx today. Received ECT #1 today and returned feeling relieved. Jmaes for safety. Encouraged to attend groups and [...] time 1020 Report called to receiving salinas Grecia Chamorro RN - 08/16/2013 10:16 PM EST S. [...] embarrassed, uncomfortable and like a hypocrite. Teary. Superior better after discussing it. Went for a [...] after MN for possible ECT in AM (program control analyst). * Jes Douglas - 08/16/2013 11:06 AM EST Inpatient Daily Group Note Group: Goals Attendance: did not attend Behavior: Conversational Therapeutic Work Observed: Moderate Mood: Calm Notes: Reviewed AIYANA worksheets for today: CUBS and Climb your Ladder. Pt.'s goal: Patient did not attend group, she was meeting with fabrication and assembly supervisor. Will review paper work later. Inpatient Daily [...] Davide Maza - 08/16/2013 10:54 AM EST Inventory Control Coordinator Encounter Note Patient Name: Aziza Fields : [id number] MR#: [id number] Admit Date: 08/15/2013 6:28 PM Hospital Day 1 day Narrative: Responded to patient's request for fabrication and assembly supervisor visit. Although Ms. 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 Alon Davis MD ([facility]) Current Therapist: Noy Casillas (seeing weekly) PCP: MALLORY HATCH MD Chief Complaint: 52 y.o. Female presents to [facility] with a suicide attempt by overdose History of Present Illness: (4) A 52yo female with a history of Major depressive disorder, severe without psychotic features, Generalized anxiety disorder has been transferred from [facility] (ICU / intubated for one day) [...] psych hospitalization in December of 2012 at [facility]). Pt wishes that she succeeded in committing [...] hospitalization and location: Anorexia, [facility] in [place] 1997 and [facility] in 1996. Depression, [facility] 06/2001,09/2001 (21 ECTs). Suicide attempt was immediately preceding 09/2001 admission. Most recent [facility] admit was 06/2012. Suicide attempts: One suicide [...] History: Grew up in foster care in [place], [place]. Has 10 siblings, but is only close to some of them. 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 18 years ago when of a heart [...] No Shortness of Breath GI No nausea /REGISTERED NURSE SUPERVISOR (include LMP if applicable) No polyuria MSK General weakness SKIN No itching NEURO No headache PSYCH see above. ENDO No temperature intolerance HEME/LYMPH No easy bruising ALL/IMMUNO No symptoms of Sinustis Physical Exam: (, 14, 14) ?? Vital signs Patient Vitals for [...] contact ?? Speech: low volume ?? Language: pitcair[place] islander ?? Mood: depressed Affect: mood congruent ?? [...] a 52 y.o. Female who presents to [facility] with severe major depressive disorderwithout psychotic features [...] monitoring is required as an inpatient. Diagnoses: Solomon I: Major depressive disorder, severe without psychotic features Solomon II: deferred (unlikely) Solomon III: Solomon IV: Solomon V: GAF 11 Clinical Global Impression Severity [...] and/or diagnostic study. Precertification: Action taken: per [facility] JORJE SIMONS DO 08/15/2013 documented in [...] of psychotic behavior [296.33] Procedures 1. ECT [[id number] (CPT??)] ECT SUBSEQUENT TREATMENT NOTE Patient received [...] stabilization and medication management. Discharge Multi-axial Diagnosis: Solomon I: Major depressive disorder, severe without psychotic features (primary dx) Solomon II: deferred (unlikely) Solomon III: Solomon IV: Solomon V: GAF 11 History of Presentation: A 52yo female with a history of Major depressive disorder, severe without psychotic features, Generalized anxiety disorder has been transferred from [facility] (ICU / intubated for one day) [...] psych hospitalization in December of 2012 at [facility]). Pt wishes that she succeeded in committing [...] disorder without psychotic features who presents to [facility] in the setting of a recent suicide [...] consented to R unilateral ECT after this press writer explained to her the indications, risks [...] Home Primary Care Physician: MALLORY HATCH MD [phone] Special Physician Instructions: Cytomel should be dcn'ed after pt has completed ECT treatments. Special Instructions Provided to Aziza Fields: Call your doctor, your local [facility], or your local emergency room if you develop worsening symptoms of depression, anxiety, thoughts of harming yourself, thoughts of harming others, or any other decline in your overall condition. [facility] Emergency Services: [facility] [phone] [facility] Emergency Services: [phone] [facility] Central Access Services: [phone] [facility] Main Line: [phone] Activity level: no restrictions from psychiatry Diet: [...] Custom] Process Instructions: 1) Ordering MD or FRUIT AND VEGETABLE INSPECTOR must provide Order Justification documentation for a: [...] Attending of Record, the ordering MD or FRUIT AND VEGETABLE INSPECTOR must obtain (verbal) approval of the Attending [...] insomnia with results pending. * Miscellaneous - Judah, Vinita - 08/16/2013 3:09 PM EST * [...] Date/Time Associated Diagnosis Comments ECT (WRVU 2.5) 08/20/2013 9:27 AM EST [...] intervals supplied above were not validated at [facility]. Results from pediatric patients should be interpreted [...] Lab Mick De Leon MD CHEMISTRY ORDERABLES [facility] * Basic Metabolic Panel (non-fasting) (08/17/2013 12:15 PM EST) Glucose 179 60 - 199 mg/dL C[facility]ER MILLENNIUM Comment:Diabetes: >=200 mg/d L plus symptoms Blood Urea Nitrogen 16 8 - 18 mg/dL [facility] MILLENNIUM Comment:result rechecked-[facility] Creatinine 0.81 0.70 - 1.20 mg/dL [facility] MILLENNIUM Comment: Please note that the pediatric reference intervals supplied above were not validated at [facility]. Results from pediatric patients should be interpreted [...] FIELDS ??Ordered By: QUINCY METZ ? MR#: [id number] ?LOC: ??2EPC ? /Sex: ??1960 (52 years), [...] ??Ordered By: TAYLOR, RICARDO H ? MR#: [id number] ?LOC: ??2EPC ? /Sex: ??1960 (52 years), [...] ? Patient: LACLAIR-PETIT, AZIZA L ? MR#: [id number] ? S=Susceptible ??I=Intermediate ??R=Resistant ??NA=Not Applicable ? [...] (Bezet) 402 ms MUSE SYSTEM Calculated P Solomon 41 degrees MUSE SYSTEM Calculated R Solomon 46 degrees MUSE SYSTEM Calculated T Solomon 71 degrees MUSE SYSTEM INTERPRETATION Normal sinus rhythm Normal ECG When compared with ECG of 30-JUN-2012 15:23, Premature ventricular complexes are no longer Present Confirmed by MD MUÑOZ ARMIN ([id number]) on 08/16/2013 7:02:21 PM MUSE SYSTEM 08/16/2013 12:2 7 PM EST 08/16/2013 7:02 PM EST Mick De Leon MD ECG ORDERABLES Performing Organization Address City/[facility] Co de Phone Number MUSE SYSTEM * [...] Urine Dipstick Clear Clear [facility] MILLENNIUM Specific [place] Urine Automated 1.005 1.002 - 1.030 CERNER [...] Lab Mick De Leon MD URINE ORDERABLES DORI DORADO * (ABNORMAL) Differential, Automated (08/15/2013 7:41 PM [...] Cell 10.4(H) 4.0 - 10.0 x10(3)/mc L [facility] Red Blood Cell 4.17 3.93 - [...] 179 145 - 370 x10(3)/mc L [facility] QU[facility]INENNI[facility] RDW Standard Deviation 44.7 35.0 - 46.0 fL [facility] MILLENNIUM RDW coefficient of variation 12.8 10.9 - 14.4 % [facility] MILLENNIUM Mean Platelet Volume 11.2 9.0 - 12.0 fL CERSHANELL MILLENNIUM Blood specimen (specimen) 08/15/2013 7:41 PM EST 08/15/2013 7:47 PM EST Narrative Resulting Agency Comment Spec In Lab Mick De Leon MD HEMATOLOGY ORDERABLE S [facility] * (ABNORMAL) CMP w/fasting Glucose (08/15/2013 7:41 PM EST) Glucose Fasting 119(H) 65 - 99 mg/dL [facility] QUENTINENNIUM Comment: ?Fasting* Glucose Interpretive Criteria Normal [...] intervals supplied above were not validated at [facility]. Results from pediatric patients should be interpreted [...] Provider: Admin Adt)0900 (Given - Provider: Rosalie iGordano RN) docusate sodium (COLACE) capsule 100 mg [...] - Reason: Transfer to a Procedural area)0833 ([facility] Unhold - Provider: Admin Adt)0900 (Given - Provider: Rosalie Giordano, MAHI) liothyronine (CYTOMEL) tablet 25 mcg 25 mcg, Oral, EVERY MORNING, First dose on 08/18/13 at 0700, Until Discontinued, Routine 0700 (Given - Provider: Candelaria Miller, MAHI) 0700 (Given - Provider: Cnadelaria Miller, MAHI)0906 ([facility] Hold - Provider: Admin Adt - Reason: Transfer to a Procedural area)1023 ([facility] Unhold - Provider: Admin Adt) 0700 (Canceled Entry - Provider: Sandra Willson RN)0750 ([facility] Hold - Provider: Admin Adt - Reason: Transfer to a Procedural area)0833 ([facility] Unhold - Provider: Admin Adt)0900 (Given - Provider: Rosalie Giordnao RN) melatonin tablet 6 mg 6 mg, Oral, NIGHTLY, First dose on Velia 08/16/13 at 2100, Until Discontinued, Routine 2100 (Given - Provider: Adriel Rashid RN) 0906 ([facility] Hold - Provider: Admin Adt - Reason: Transfer to a Procedural area)1023 ([facility] Unhold - Provider: Admin Adt)2100 (Given - Provider: Sandra Willson RN) 0750 ([facility] Hold - Provider: Admin Adt - Reason: Transfer to a Procedural area)0833 ([facility] Unhold - Provider: Admin Adt) mirtazapine (REMERON) tablet 30 mg 30 mg, Oral, NIGHTLY, First dose (after last modification) on Tue08/17/13 at 2100, Until Discontinued, Routine 2100 (Given - Provider: Adriel Rashid RN) 0906 ([facility] Hold - Provider: Admin Adt - Reason: Transfer to a Procedural area)1023 ([facility] Unhold - Provider: Admin Adt)2100 (Given - Provider: Sandra Willson RN) 0750 ([facility] Hold - Provider: Admin Adt - Reason: Transfer to a Procedural area)0833 ([facility] Unhold - Provider: Admin Adt) sertraline (ZOLOFT) tablet 200 mg (CANCELED) 200 mg, Oral, DAILY, First dose (after last modification) on 08/18/13 at 0900, Until Discontinued, Routine 0900 (Given - Provider: Rosalie Giordano RN) 0906 ([facility] Hold - Provider: Admin Adt - Reason: Transfer to a Procedural area)1023 ([facility] Unhold - Provider: Admin Adt)1029 (Given - Provider: Laura Nayak RN) 0750 ([facility] Hold - Provider: Admin Adt - Reason: Transfer to a Procedural area)0833 ([facility] Unhold - Provider: Admin Adt)0900 (Given - Provider: Rosalie Giordano RN) PRN Medication Order 08/19/2013 08/20/2013 08/21/2013 acetaminophen (TYLENOL) tablet 650 mg (CANCELED) 650 mg, Oral, EVERY 4 HOURS PRN, Starting on 08/20/13 at 1213, Until Tue08/21/13 at 1654, Pain, Maximum dose of acetaminophen is 4000 mg from all sources in 24 hours., Routine 1240 (Given - Provider: Laura Nayak RN) 0750 ([facility] Hold - Provider: Admin Adt - Reason: Transfer to a Procedural area)0833 ([facility] Unhold - Provider: Admin Adt) hydrOXYzine (ATARAX) tablet 100 mg 100 mg, Oral, NIGHTLY PRN, Starting on 08/18/13 at 0913, Until Tue08/21/13 at 1654, sleep, Routine 0906 ([facility] Hold - Provider: Admin Adt - Reason: Transfer to a Procedural area)1023 ([facility] Unhold - Provider: Admin Adt)2122 (Given - Provider: Sandra Willson RN) 0750 ([facility] Hold - Provider: Admin Adt - Reason: Transfer to a Procedural area)0833 ([facility] Unhold - Provider: Admin Adt) ibuprofen (ADVIL;MOTRIN) tablet 600 mg (CANCELED) 600 mg, Oral, EVERY 6 HOURS PRN, Starting on 08/18/13 at 0912, Until Tue08/21/13 at 1654, Pain, Maximum dose of 3200 mg from all sources in 24 hours, Routine 0559 (Given - Provider: Candelaria Miller RN) 0906 ([facility] Hold - Provider: Admin Adt - Reason: Transfer to a Procedural area)1023 ([facility] Unhold - Provider: Admin Adt)1605 (Given - Provider: Jes Nina RN)2155 (Given - Provider: Sandra Willson RN) 0750 ([facility] Hold - Provider: Admin Adt - Reason: Transfer to a Procedural area)0850 ([facility] Unhold - Provider: Admin Adt) documented in this encounter Care Teams Baker Bread Relationship Specialty Start Date End Date Mallory Hatch MD [address] [place] [id number] PCP - General 07/14/10 09/29/15 documented as of this encounter
--- OUTSIDE RECORDS SUMMARY | 2024-04-12 11:21 | XMS_ITS | Encounter Summary ---
Author Organization [facility] [place] [address] Care Team Providers Care Pipe Covering Molder Name Role Phone Liang Deluca MD Primary Care Provider [phone] Reason for Visit * Reason Comments Other suicidal ideation Encounter Details Date Type Department Care Team (Late st Contact Info) Description 12/16/2012 10:40 PM EDT - 12/17/2012 1:07 AM EDT Emergency [place] [address] Ashutosh Enrique MD [facility] [place] [address] Suicidal ideations (Primary Dx) Discharge Disposition: Admitted to [facility] Social History Tobacco Use Types Packs/Day Years Used Date Smoking Tobacco: Never Alcohol Use Standard Drinks/Week Comments Yes 5 (1 standard drink = 0.6 oz pure alcohol) pt recently has increased intake to 3-4 glasses wine every other night. Sex and Gender Information Value Date Recorded Sex Assigned at Not on file Gender Identity Not on file Sexual Orientation Not on file documented as of this encounter Last Filed Vital Signs Vital Sign Reading Time Taken Comments Blood Pressure 92/61 12/16/2012 10:46 PM EDT Pulse 64 12/16/2012 10:46 PM EDT Temperature 36.5 ??C (97.7 ??F) 12/16/2012 10:46 PM E DT Respiratory Rate 18 12/16/2012 10:46 PM EDT Oxygen Saturation 99% 12/16/2012 10:46 PM EDT Inhaled Oxygen Concentration - - Weight - - Height - - Body Mass Index - - documented in this encounter Medications at Time of Discharge Medication Sig Dispensed Refills Start Date End Date LORazepam (ATIVAN) 1 mg tabletIndications:anxi ety Take 0.5 tablets by mouth 2 times daily as needed (pt has supply, only using 0.5 mg, usually once per day). Indications: Anxiety 30 tablet 0 12/20/2012 08/21/2013 mirtazapine (REMERON) 30 mg tabletIndications:cris r depressive disorder Take 1 tablet by mouth nightly. Indications: Major Depressive Disorder 30 tablet 0 12/20/2012 08/21/2013 documented as of this encounter ED Notes * Musa Wise RN - 12/17/2012 12:55 AM EDT Nurse report to Paco. MAHI Ferrari accepted report, questions and comments acknowledged. * Musa Wise RN - 12/17/2012 12:01 AM EDT Pt continues to await for Psych Eval. Observed pt sleeping. No distress or agitation. sitting in room. Security watch maintained. * Musa Wise RN - 12/16/2012 11:06 PM EDT Pt was not able to contract for safety completely. Called Security to maintain a security watch on pt. * Musa Wise RN - 12/16/2012 11:05 PM EDT Pt walked to Room 3 with on side. Observed a steady gait, appeared withdrawn. Pt states shewas last here in Jun 2012. Explained procedures and plan of care to pt. Pt stated understanding. Asked pt about her suicide plan, pt responded without hesitation. She had bought three bottles of OTC medications: Advil PM, Benadryl and Nyquil. Pt stated she was going to take the bottles (assumed consume) and her bottle of Lorazepam. Pt did not take of the meds, but she took two pills of Lorazepam (0.5mg each). Pt states she was feeling anxious, but feels better after the meds. * Ashutosh Enrique MD - 12/16/2012 10:54 PM EDT Aziza Tamez is an 52 y.o. female who presents to the ED with CC: SI I saw this patient at 2305 HPI Aziza Tamez is a 52 y.o. female who presents to the Emergency Department for suicidal ideation. She has PMH of persistant SI and has had a puroseful OD in the past. She has had ECT in the past and has most recently been attending group therapy in 07/03. She recently has been adjusting her medications with psychiatrist. She tapered her dose of remeron for 2 weeks from 30 mg to 0mg and has not taken in 1 week. At the same time she increased her dose of Zoloft from 100 to 150mg. She also takes temazepam for sleep and ativan PRN. She became increasingly depressed during this time and had SI. She had multiple plans. She asked to take the gunsout of the house and to take away her vicodin prescribed for back pain. Today she bought OTC advil PM, nyquil, benadryl, and filled script for ativan and was going to take all of them. She took 2 ativan tonight for anxiety. No other drugs. No ETOH. No homicidal ideation. She came to ED at request of . She currently has no physical complaints. No recent illness. Review of Systems Constitutional: Negative for fever and chills. HENT: Negative for congestion, neck pain and neck stiffness. Eyes: Negative for visual disturbance. Respiratory: Negative for shortness of breath. Cardiovascular: Negative for chest pain. Gastrointestinal: Negative for nausea, vomiting, abdominal pain and diarrhea. Genitourinary: Negative for dysuria. Musculoskeletal: Positive for back pain. Skin: Negative for rash. Neurological: Negative for weakness, numbness and headaches. Psychiatric/Behavioral: Positive for suicidal ideas. Negative for hallucinations and confusion. Thepatient is nervous/anxious. Physical Exam Nursing note and vitals reviewed. Constitutional: She is oriented to person, place, and time. She appears well- developed and well-nourished. No distress. HENT: Head: Normocephalic and atraumatic. Mouth/Throat: Oropharynx is clear and moist. Eyes: EOM are normal. Pupils are equal, round, and reactive to light. Neck: Normal range of motion. Neck supple. Cardiovascular: Normal rate, regular rhythm and intact distal pulses. Pulmonary/Chest: Effort normal and breath sounds normal. Abdominal: Soft. There is no tenderness. Musculoskeletal: She exhibits no edema. Neurological: She is alert and oriented to person, place, and time. Skin: Skin is warm and dry. Psychiatric: She is slowed. She exhibits a depressed mood. She expresses suicidal ideation. She expresses no homicidal ideation. She expresses suicidal plans. ED Course: - I reviewed the patients records: I reviewed the patient's labwork: Rapid urine tox screen- + benzo UA-neg I discussed the case with: Psych Assessment and Plan: Pt is a 52 y/o female with extensive PMH of depression and SI with a prior serious suicide attempt of ingestion of Klonopin. She has had worsening depression since changing her medication doses and has had multiple plans for suicide including gunshot and ingestion. She has no medical complaints andan exam is benign. She states and concurs that she has only had 2 ativan tonight and that there was no other ingestions. There were no vital sign abnormalities. She was AOx3 with a benign exam. I spoke with Psych who agreed to evaluate her. They felt that she would benefit from admission for further workup and treatment. She remained stable while in the ED. Manny Mo DO Resident 12/17/12 5229 ED ATTENDING ADDENDUM: The patient was seen in conjunction with , the resident physician. I have independently performed the gresham portions of the history and physical exam. I have reviewed all diagnostic studies personally including labs. I have discussed the details of the case with the resident and agree with the assessment and plan as described in the resident note above unless noted otherwise below. In summary, 52-year-old with history of depression presents with increasing suicidal ideation. She states she has not attempted to harm her self yet and does not believe she is taking harm herself. Review of systems and physical exam are unremarkable as above. Psychiatry has seen the patient and will be admitting her to their service Final Assessment: Depression. There is no evidence of any acute medical condition which would preclude admission to psychiatry at this time. Final Disposition: Admitted Ashutosh Enrique MD 12/17/12 0422 documented in this encounter Miscellaneous Notes * Miscellaneous - Provider, Scanning - 12/17/2012 10:21 AM EDT * Miscellaneous - Provider, Scanning - 12/17/2012 10:16 AM EDT * ED Triage - Hui Larios RN - 12/16/2012 10:47 PM EDT Adjusted meds with advice of psychiatrist. Remeron slowly tapered until off, and Zoloft increased. Since then has been increasingly depressed and now has plans for suicide. Will let staff know if shecan no longer be safe. documented in this encounter Plan of Treatment Not on file documented as of this encounter Procedures Procedure Name Priority Date/Time Associated Diagnosis Comments RAPID DRUG SCREEN W/O CONFIRMATION, URINE STAT 12/16/2012 11:10 PM EDT URINALYSIS WITH REFLEX CULTURE STAT 12/16/2012 11:10 PM EDT documented in this encounter Results * (ABNORMAL) Urinalysis with microscopic (12/16/2012 11:10 PM EDT) Glucose, Urine Dipstick Negative Negative mg/dL CERNER MILLENNIUM Protein, Urine Dipstick Negative mg/dL CERNER MILLENNIUM Bilirubin, Urine Dipstick Negative Negative mg/dL CERNER MILLENNIUM Urobilinogen, Urine Dipstick Normal mg/dL CERNER MILLENNIUM pH, Urn (dipstick) 6.0 5.0 - 8.0 CERNER MILLENNIUM Blood, Urine Dipstick Negative mg/dL CERNER MILLENNIUM Ketone, Urine Dipstick Negative mg/dL CERNER MILLENNIUM Nitrite, Urine Dipstick Negative CERNER MILLENNIUM Leukocytes, Urine Dipstick Trace(A) Neg CERNER MILLENNIUM Appearance, Urine Dipstick Hazy(A) Clear CERNER MILLENNIUM Specific [place] Urine Automated 1.005 1.002 - 1.030 CERNER MILLENNIUM Color, Urine Dipstick Yellow Yellow CERNER MILLENNIUM RBC, Urine <1 0 - 4 /HPF CERNER MILLENNIUM WBC, Urine 1 0 - 5 /HPF CERNER MILLENNIUM Bacteria, Urine Rare(A) None /HPF CERNER MILLENNIUM Squamous Epithelial Cells, Urine 4 <=4 /HPF CERNER MILLENNIUM Amorphous Crystals, Urine Rare(A) None /HPF CERNER MILLENNIUM Urine specimen (specimen) 12/16/2012 11:10 PM EDT 12/16/2012 11:22 PM EDT Narrative Resulting Agency Comment Spec In Lab Ashutosh Enrique MD URINE ORDERABLES CERNER MILLENNIUM * (ABNORMAL) Rapid Qual Drug Screen, Urine ([facility]) (12/16/2012 11:10 PM EDT) Pathologist [facility] NER[facility] Marijuana Metabolites Screen None Detected None Detected CERNER MILLENNIUM Comment: Please note that as of 08/18/2012 the testing device changed to the PROFILE-V [employer] Drugs of Abuse Test System. The marijuana metabolites screen detects the THC Metabolite ([id number]- 9-THC) ??at concentrations >50 ng/mL. Be aware that this is only a QUALITATIVE SCREEN and must be used in conjunction with your clinical assessment of the patient. ??Results are NOT routinely confirmed by highly-defined methods, and are therefore reported as presumptive positive screens as such qualitative SCREEN RESULTS CANNOT BE USED FOR MEDICO-LEGAL purposes. ??As with any qualitative drug screening device, there can be occasional false positive readings from similar or dissimilar cross-reacting drugs. Phencyclidine Screen, Urine None Detected None Detected CERNER MILLENNIUM Comment: Please note that as of 08/18/2012 the testing device changed to the PROFILE-V [employer] Drugs of Abuse Test System. The phencyclidine screen detects phencyclidine at concentrations >25 ng/mL. Be aware that this is only a QUALITATIVE SCREEN and must be used in conjunction with your clinical assessment of the patient. ??Results are NOT routinely confirmed by highly-defined methods, and are therefore reported as presumptive positive screens as such qualitative SCREEN RESULTS CANNOT BE USED FOR MEDICO-LEGAL purposes. ??As with any qualitative drug screening device, there can be occasional false positive readings from similar or dissimilar cross-reacting drugs. N[facility] Cocaine Metabolites Screen None Detected None Detected CERNER MILLENNIUM Comment: Please note that as of 08/18/2012 the testing device changed to the PROFILE-V [employer] Drugs of Abuse Test System. The cocaine metabolites screen detects benzoylecgonine (Cocaine Metabolite) at concentrations >150 ng/mL. Be aware that this is only a QUALITATIVE SCREEN and must be used in conjunction with your clinical assessment of the patient. ??Results are NOT routinely confirmed by highly-defined methods, and are therefore reported as presumptive positive screens as such qualitative SCREEN RESULTS CANNOT BE USED FOR MEDICO-LEGAL purposes. ??As with any qualitative drug screening device, there can be occasional false positive readings from similar or dissimilar cross-reacting drugs. Methamphetamines Screen, Urine None Detected None Detected CERNER MILLENNIUM Comment: Please note that as of 08/18/2012 the testing device changed to the PROFILE-V [employer] Drugs of Abuse Test System. The methamphetamine screen detects d-methamphetamine at concentrations >500 ng/mL. Be aware that this is only a QUALITATIVE SCREEN and must be used in conjunction with your clinical assessment of the patient. ??Results are NOT routinely confirmed by highly-defined methods, and are therefore reported as presumptive positive screens as such qualitative SCREEN RESULTS CANNOT BE USED FOR MEDICO-LEGAL purposes. ??As with any qualitative drug screening device, there can be occasional false positive readings from similar or dissimilar cross-reacting drugs. N[facility] Opiates Screen None Detected None Detected CERNER MILLENNIUM Comment: Please note that as of 08/18/2012 the testing device changed to the PROFILE-V [employer] Drugs of Abuse Test System. The opiates screen detects opiates at a concentration >100 ng/mL. Be aware that this is only a QUALITATIVE SCREEN and must be used in conjunction with your clinical assessment of the patient. ??Results are NOT routinely confirmed by highly-defined methods, and are therefore reported as presumptive positive screens as such qualitative SCREEN RESULTS CANNOT BE USED FOR MEDICO-LEGAL purposes. ??As with any qualitative drug screening device, there can be occasional false positive readings from similar or dissimilar cross-reacting drugs. NER[facility]SA Amphetamines Screen None Detected None Detected CERNER MILLENNIUM Comment: Please note that as of 08/18/2012 the testing device changed to the PROFILE-V [employer] Drugs of Abuse Test System. The amphetamine screen detects d-amphetamine at concentrations >500 ng/mL. Be aware that this is only a QUALITATIVE SCREEN and must be used in conjunction with your clinical assessment of the patient. ??Results are NOT routinely confirmed by highly-defined methods, and are therefore reported as presumptive positive screens as such qualitative SCREEN RESULTS CANNOT BE USED FOR MEDICO-LEGAL purposes. ??As with any qualitative drug screening device, there can be occasional false positive readings from similar or dissimilar cross-reacting drugs. NER[facility] Benzodiazepines Screen Presumptive Pos(A) None Detected CERNER MILLENNIUM Comment: Please note that as of 08/18/2012 the testing device changed to the PROFILE-V [employer] Drugs of Abuse Test System. The benzodiazepines screen detects benzodiazepines at concentrations >150 ng/mL. Not all benzodiazepines cross-react equally with antibody used in this screen. Due to the low dosage of clonazepam, false negatives may be obtained due to low concentration of clonazepam metabolites. Be aware that this is only a QUALITATIVE SCREEN and must be used in conjunction with your clinical assessment of the patient. ??Results are NOT routinely confirmed by highly-defined methods, and are therefore reported as presumptive positive screens as such qualitative SCREEN RESULTS CANNOT BE USED FOR MEDICO-LEGAL purposes. ??As with any qualitative drug screening device, there can be occasional false positive readings from similar or dissimilar cross-reacting drugs. NER[facility] Tricyclics Screen None Detected None Detected CERNER MILLENNIUM Comment: Please note that as of 08/18/2012 the testing device changed to the PROFILE-V [employer] Drugs of Abuse Test System. The tricyclics screen detects tricyclic antidepressants at concentrations >300 ng/mL. Not all tricyclics cross-react equally with the antibody used in this screen. Be aware that this is only a QUALITATIVE SCREEN and must be used in conjunction with your clinical assessment of the patient. ??Results are NOT routinely confirmed by highly-defined methods, and are therefore reported as presumptive positive screens as such qualitative SCREEN RESULTS CANNOT BE USED FOR MEDICO-LEGAL purposes. ??As with any qualitative drug screening device, there can be occasional false positive readings from similar or dissimilar cross-reacting drugs. NERISSA Methadone Screen None Detected None Detected CERNER MILLENNIUM Comment: Please note that as of 08/18/2012 the testing device changed to the PROFILE-V [employer] Drugs of Abuse Test System. The methadone screen detects methadone at concentrations >200 ng/mL. Be aware that this is only a QUALITATIVE SCREEN and must be used in conjunction with your clinical assessment of the patient. ??Results are NOT routinely confirmed by highly-defined methods, and are therefore reported as presumptive positive screens as such qualitative SCREEN RESULTS CANNOT BE USED FOR MEDICO-LEGAL purposes. ??As with any qualitative drug screening device, there can be occasional false positive readings from similar or dissimilar cross-reacting drugs. N[facility] Barbiturates Screen None Detected None Detected CERNER MILLENNIUM Comment: Please note that as of 08/18/2012 the testing device changed to the PROFILE-V [employer] Drugs of Abuse Test System. The barbiturates screen detects barbiturate at concentrations >200 ng/mL. Note: Not all barbiturates cross-react equally with antibody used in this screen. Be aware that this is only a QUALITATIVE SCREEN and must be used in conjunction with your clinical assessment of the patient. ??Results are NOT routinely confirmed by highly-defined methods, and are therefore reported as presumptive positive screens as such qualitative SCREEN RESULTS CANNOT BE USED FOR MEDICO-LEGAL purposes. ??As with any qualitative drug screening device, there can be occasional false positive readings from similar or dissimilar cross-reacting drugs. NERISSA Oxycodone Srceen None Detected None Detected CERNER MILLENNIUM Comment: Please note that as of 08/18/2012 the testing device changed to the PROFILE-V [employer] Drugs of Abuse Test System. The oxycodone screen detects oxycodone at concentrations >100 ng/mL and oxymorphone >250 ng/ml. Be aware that this is only a QUALITATIVE SCREEN and must be used in conjunction with your clinical assessment of the patient. ??Results are NOT routinely confirmed by highly-defined methods, and are therefore reported as presumptive positive screens as such qualitative SCREEN RESULTS CANNOT BE USED FOR MEDICO-LEGAL purposes. ??As with any qualitative drug screening device, there can be occasional false positive readings from similar or dissimilar cross-reacting drugs. Propoxyphene Screen, Urine None Detected None Detected CERNER MILLENNIUM Comment: Please note that as of 08/18/2012 the testing device changed to the PROFILE-V [employer] Drugs of Abuse Test System. The propoxyphene screen detects propoxyphene at concentrations >300 ng/mL. Be aware that this is only a QUALITATIVE SCREEN and must be used in conjunction with your clinical assessment of the patient. ??Results are NOT routinely confirmed by highly-defined methods, and are therefore reported as presumptive positive screens as such qualitative SCREEN RESULTS CANNOT BE USED FOR MEDICO-LEGAL purposes. ??As with any qualitative drug screening device, there can be occasional false positive readings from similar or dissimilar cross-reacting drugs. N[facility] Buprenorphine Screen None Detected None Detected CERNER MILLENNIUM Comment: Please note that as of 08/18/2012 the testing device changed to the PROFILE-V [employer] Drugs of Abuse Test System. The buprenorphine screen detects buprenorphine at concentrations >10 ng/mL. Be aware that this is only a QUALITATIVE SCREEN and must be used in conjunction with your clinical assessment of the patient. ??Results are NOT routinely confirmed by highly-defined methods, and are therefore reported as presumptive positive screens as such qualitative SCREEN RESULTS CANNOT BE USED FOR MEDICO-LEGAL purposes. ??As with any qualitative drug screening device, there can be occasional false positive readings from similar or dissimilar cross-reacting drugs. Urine specimen (specimen) 12/16/2012 11:10 PM EDT 12/16/2012 11:22 PM EDT Narrative Resulting Agency Comment Spec In Lab Ashutosh Enrique MD URINE ORDERABLES Performing Organization Address City/State/[facility] Co de Phone Number DORI DORADO documented in this encounter Visit Diagnoses Diagnosis Suicidal ideations- Primary Suicidal ideation documented in this encounter Care Teams Pipe Covering Molder Relationship Specialty Start Date End Date Liang Deluca MD [address] [place] [address] [place] [address] PCP - General 07/14/10 09/29/15 documented as of this encounter
--- OUTSIDE RECORDS SUMMARY | 2024-04-12 11:21 | XMS_ITS | Encounter Summary ---
Author Organization [facility] [place] [address] Care Team Providers Care Electronic Assembler Group Leader Name Role Phone Liang Deluca MD Primary Care Provider [phone] [phone] Encounter Details Date Type Department Care Team (Late Contact Info) Description 08/04/2012 Notes Only [facility] [place] [address] Antonio Villaseñor MD [facility] [place] [address] Social History Tobacco Use Types Packs/Day Years [...] as of this encounter Progress Notes * Antonio Villaseñor MD - 08/04/2012 2:09 PM EST Called from pt today - left msg w/ [facility] re - being on meds, but sleep getting worse, wanted me to return call to make med change or advise re- new treatment. However, pt was d/mihai late Jun from [facility].I called pt [phone] ext [phone], spoke with her. Told her she would need to f/u with a current pbx technician - either PCP, PA, or therapist (who could refer her to local psychiatry), or go to local ER for eval and tx change. I would not be able to offer any new treatment advise/med Rx/changes as she isnot in tx here at this time. Pt stated she would f/u w/ someone from above options. Ariel Villaseñor MD documented in this encounter Plan of Treatment Not on file documented as of this encounter Visit Diagnoses Not on filedocumented in this encounter Care Teams Electronic Assembler Group Leader Relationship Specialty Start Date End Date Liang Deluca MD [address] [place] [id number] PCP - General 07/14/10 09/29/15 documented as of this encounter
--- OUTSIDE RECORDS SUMMARY | 2024-04-12 11:21 | XMS_ITS | Encounter Summary ---
Author Organization [facility] [place] [address] Care Team Providers Care Dye Reel Operator Helper Name Role Phone Liang Deluca MD Primary Care Provider [phone] Reason for Visit * Reason Comments Palpitations Encounter Details Date Type Department Care Team (Late st Contact Info) Description 12/07/2011 11:15 AM EDT Office Visit [address] [phone] Jose Pugh MD [facility] [place] [address] Palpitations (Primary Dx) Social History Tobacco Use Types Packs/Day Years Used Date Smoking Tobacco: Never Assessed Sex and Gender Information Value Date Recorded Sex Assigned at Not on file Gender Identity Not on file Sexual Orientation Not on file documented as of this encounter Progress Notes * Gabriel Richardson - 12/14/2011 12:07 PM EDT * Jose Pugh - 12/07/2011 1:04 PM EDT Subjective: Patient ID: Aziza Tamez is a 51 y.o. female. HPI ROS Objective: Physical Exam Assessment and Plan: No problem-specific visit notes found for this encounter. Scanned note documented in this encounter Plan of Treatment Not on file documented as of this encounter Visit Diagnoses Diagnosis Palpitations- Primary documented in this encounter Care Teams Dye Reel Operator Helper Relationship Specialty Start Date End Date Liang Deluca MD [address] [place] [address] [place] [address] PCP - General 07/14/10 09/29/15 documented as of this encounter
--- OUTSIDE RECORDS SUMMARY | 2024-04-12 11:21 | XMS_ITS | Encounter Summary ---
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 ALEXANDER ARMSTRONG 07/03/2012 * Mallory Cortes MD - 07/03/2012 9:18 AM EST Psychiatry Inpatient - Progress Note ID: Aziza Fields is a 51 y.o. female admitted on 06/29/2012 for depression, SI. Pertinent medical issues being addressed: anorexia Interval History: mirtazapine less effective for sleep, will increase to 30mg, continuing Zoloft. Patient appears slightly better. Quality: good better Severity: Patient rates depression as 4/10 and anxiety as 7/10. Timing: No diurnal variation at mood. Assoc. signs & sxs: Denies SI, no plan and CFS. Appetite improved. Smiling, pleasant. Homesick.Tearful Modifying factors: Patient reports the calm structured environment of the unit has slightly improved mood. Good sleep improved mood. and son visited yesteday improving mood. Ativan PRN improved anxiety. Open discussion groups are helpful because now she doesn't feel like a failure for coming back and seeking help. Feels bad and remorseful how close she came to suicide. Zoloft is helping with mood symptoms. Working on recovery book which helps focus her road to improvement. Mirtazapine is not helping for sleep at 15mg. Will pursue other options for sleep. Duration: Context: Review of Systems: CONST No fever. No acute complaints CV No chest pain. RESP No shortness of breath GI No nausea. No vomiting. No diarrhea. No constipation. NEURO No headache. Extent of History Determination: Ceferino descriptors, reviewed systems, and level of history with x. HPI Descriptors 1-3 1-3 x 4 + Reviewed Systems 0 1 x 2-9 Level of Hx PF EPF x D Physical Exam: Vitals (24hr Range): Temp: [37 ??C (98.6 ??F)] Resp: [16] Heart Rate: [72] BP: (114)/(73) SpO2: -- Musculoskeletal System: normal gait and balance, ambulates independently, no atrophy and no abnormal movements Mental Status Exam: Appearance: Appears stated age, well-groomed, good hygiene, thin Behavior: calm, sitting in chair, no unusual movements, poor eye-contact. Speech: low volume, slow rate, normal articulation, tone, prosody, and latency of response. Spontaneous. Language: no deficits Mood: good Better Affect: appropriate and congruent to mood, blunted affect, smiling though forced Thought process: logical, linear, goal-oriented Associations: intact Thought content: no SI, HI, delusions. No plan, CFS. Perception: no AVH Orientation: alert and oriented to person, place, date, time Attn/Concentration: grossly intact with no deficits noted Cognition: wnl Memory: grossly intact with no deficits noted Fund of Knowledge: grossly appropriate to level of education Insight: fair Judgment: fair Extent of Exam Determination: Ceferino completed bullets and level of exam with x. Bullets Completed 1-5 6-8 x 9+ Level of Exam PF EPF x D Scheduled Meds: ??? sertraline 100 mg Oral Daily ??? mirtazapine 15 mg Oral Nightly PRN Meds: LORazepam, bisacodyl, magnesium hydroxide, docusate sodium, acetaminophen Labs (over the last 24hr): No results found for this or any previous visit (from the past 24 hour(s)). Assessment: Aziza Fields is a 51 y.o. female who presented to [facility] with several recurrent episodes of depression and anxiety with 2 serious plans to commit suicide in the past week in the context of of family friend and worsening psychosocial stressors. Will consider prazosin 1mg for trauma related nightmares, however, blood pressure remains low. Continue Zoloft at 100mg. Mirtazapine increased to 30mg for sleep. Status of overall condition: Minimally Improved Reasons for continued hospitalization: Stabilization. Monitoring for safety. Medication optimization. Primary Diagnosis: MDD r s Plan: Activity: EtG Diet: regular Medications: Mood Zoloft 100mg QD Sleep/anxiety Will keep 0.5mg QD PRN for anxiety. Mirtazapine 30mg QHS for sleep. Nightmares Patient may benefit from starting Prazosin 1mg QHS after monitoring blood pressure Labs/Consults/Diagnostic Procedures ordered: none Safety Risk Management: Patient at risk for self-harm and should be carefully reassessed for safety before discharge. Disposition: After stabilization, patient expected to return home. Follow up: Psychiatric prescriber: None Therapist: Adriano Elkins PCP: MD Radha SETH LEGAL SUPPORT ANALYST Patient Instruction/Education Provided: Patient provided verbal instructions regarding treatment plan. I have reviewed and agree with the multidisciplinary treatment plan. MALLORY CORTES MD 07/03/2012 Coding Determination Complexity of MDM Determination: Ceferino [...] Minimal/None Minimal Straightforward Limited Limited Low Low x Multiple x Moderate x Moderate x Moderate Extensive Extensive High High Subsequent Hospital Day Service Code Determination: Ceferino Hx, Exam, MDM & ANDERSON/CPT Code with x. 2 out of # gresham components in the row must be met toqualify. HISTORY EXAM MDM ANDERSON/CPT CODE PF PF Straightforward/Low 3005/90386 EPF EPF x Moderate 3015/90497 x D x D High x 3025/24715 * Sachi Carlos MSW - 07/02/2012 11:29 AM EST Inpatient Daily Group Note Group: Goals Attendance: Present Behavior: Expressive, Quiet and Attentive Therapeutic Work Observed: Moderate Mood: Depressed Notes: Pt identified her goals for today as stay in the moment, stay hopeful, and try to have a good visit with her - Pt stated she is anxious about his visit. DASIA LINDER 07/02/2012 * Ashli Gonzalez RN - 07/02/2012 9:15 AM EST Psychiatric Nursing Progress Note Fall Risk Completed? (required every 12 hours):Psychiatric Nursing Progress Note Fall Risk Completed? (required every 12 hours): Assessment (problems concerning safety/suicidality, self care, interpersonal issues, psychiatric symptoms, family/support, treatment/med compliance, medical/treatment issues): activities of daily living Denies SI/HI/CFS Rates depression 10, improved from admit Rates anxiety 6-02/28, focus of anxiety being 's expected visit, though pt s/t is usually supportive. Affect slightly more full, eye contact fair S/t sleep last noc not good, felt a 'little weak' this am, did eat/hydrate better yesterday/had small BM this AM Interventions (med administration, groups, level of safety, teaching, 1:1, environmental alterations): Enc groups Enc fluids/food Evaluation (patient response/plan): * Jm Garces MD - 07/02/2012 6:31 AM EST Psychiatry Inpatient - Progress Note ID: Aziza Fields is a 51 y.o. female admitted on 06/29/2012 for depression, SI. Pertinent medical issues being addressed: anorexia Interval History: This patient says that she is feeling more hopeful. Not experiencing any suicidal thoughts. She is frightened about how it would have been if she had killed self. Quality: less depressed Severity: Patient rates depression as 4/10 anxiety 6/10 - worried about and son visiting - had not talked to them Timing: No diurnal mood variation Assoc. signs & sxs: Reports no SI today. Did not sleep as well - woke up more. Lorazepam helped Modifying factors: Patient reports the calm structured environment of the unit has slightly improved mood. Group was helpful - hearing experiences of others - not alone. Made her feel less like a failure for being here. Review of Systems: CONST No fever. CV No chest pain. RESP No shortness of breath GI had a bowel movement NEURO No headache. Extent of History Determination: Ceferino descriptors, reviewed systems, and level of history with x. HPI Descriptors 1-3 1-3 x 4 + Reviewed Systems 0 1 x 2-9 Level of Hx PF EPF x D Physical Exam: Vitals (24hr Range): Patient Vitals in the past 24 hrs: BP Temp Temp src Pulse Resp SpO2 07/02/12 0755 109/68 mmHg 36.3 ??C (97.3 ??F) Oral 55 16 99 % Musculoskeletal System: normal gait and balance, ambulates independently, no atrophy and no abnormal movements Mental Status Exam: Appearance: Appears stated age, well-groomed, good hygiene, thin. Very neat and well put together Behavior: calm, sitting on bed. Cooperative and engaged in the conversation. friendly Speech: normal volume and tone Language: no deficits Mood: better Affect: appropriate and congruent to mood, Thought process: logical, linear, goal-oriented Associations: intact Thought content: no SI, HI, delusions. No current plan, safe here Perception: no AVH Orientation: alert and oriented Attn/Concentration: grossly intact with no deficits noted Cognition: wnl Memory: grossly intact with no deficits noted Fund of Knowledge: grossly appropriate to level of education Insight: fair Judgment: fair Extent of Exam Determination: Ceferino completed bullets and level of exam with x. Bullets Completed 1-5 6-8 x 9+ Level of Exam PF EPF x D Scheduled Meds: ??? sertraline 100 mg Oral Daily ??? mirtazapine 15 mg Oral Nightly Continuous Infusions: PRN Meds:.LORazepam, LORazepam, bisacodyl, magnesium hydroxide, docusate sodium, acetaminophen No results found for this or any previous visit (from the past 24 hour(s)). Assessment: Aziza Fields is a 51 y.o. female who presented to [facility] with several recurrent episodes of depression and anxiety with 2 serious plans to commit suicide in the past week in the context of of family friend and worsening psychosocial stressors. Mood is improving with being here on meds in in this environment. Status of overall condition: improvement Reasons for continued hospitalization: Stabilization. Monitoring for safety. Medication optimization. Primary Diagnosis: MDD r s Plan: Activity: EtG Diet: regular Medications: no change Labs/Consults/Diagnostic Procedures ordered: none Safety Risk Management: Patient at risk for self-harm and should be carefully reassessed for safety before discharge. Disposition: After stabilization, patient expected to return home. Follow up: Psychiatric prescriber: None Therapist: Adriano Elkins PCP: MD Radha SETH LEGAL SUPPORT ANALYST Patient Instruction/Education Provided: Patient provided verbal instructions regarding treatment plan. Coding Determination Complexity of MDM Determination: Ceferino [...] Minimal/None Minimal Straightforward Limited Limited Low Low x Multiple x Moderate x Moderate x Moderate Extensive Extensive High High Subsequent Hospital Day Service Code Determination: Ceferino Hx, Exam, MDM & ANDERSON/CPT Code with x. 2 out of # gresham components in the row must be met toqualify. HISTORY EXAM MDM ANDERSON/CPT CODE PF PF Straightforward/Low 3005/35862 EPF EPF x Moderate 3015/16322 x D x D High x 3025/84479 * Ester Larios RN - 07/01/2012 6:41 PM EST Psychiatric Nursing Progress Note Fall Risk Completed? (required every 12 hours):Psychiatric Nursing Progress Note Fall Risk Completed? (required every 12 hours): yes Assessment (problems concerning safety/suicidality, self care, interpersonal issues, psychiatric symptoms, family/support, treatment/med compliance, medical/treatment issues): activities of daily living Presents as sad-appearing. Interacts quietly with peers. Easily engaged and brightens on interaction. States she is feeling better today. Denies SI. Rates depression 6-02/28, anxiety 10/29. Ate 100% this evening. Good fluid intake. Still no BM . Patient states it was good to visit with friend today. Also talked to her boss who reassured her about her job. Interventions (med administration, groups, level of safety, teaching, 1:1, environmental alterations): Encourage groups, work on coping skills and safety. Moniter mood and safety on the unit. Fall precautions and patient reminded to use care getting up after night medicaitons. Evaluation (patient response/plan): Patient notes improvement, appears engaged in treatment, more positive toward hospitalization. * Leandro Baer MHT - 07/01/2012 10:43 AM EST Inpatient Daily Group Note Group: goals group Attendance: Present Mood: Depressed Notes: Pt set the following goals for today: 1) I will try to stay positive Inpatient Daily Group Note Group: Open discussion Attendance: Present Behavior: Helpful to others insightful Therapeutic Work Observed: substantial Mood: Stable Notes: the group discussed suicide and suicidal thoughts and how to find hope in the process of recovery. Pt was active in the group sharing her own suicidal thoughts and also feeling trauma from thesuicide of her son's friend who she calls a son. She spoke of fighting thoughts of hopelessness by reminding herself that she has felt this way before and gotten well again and it can happen again. * Jm Garces MD - 07/01/2012 6:50 AM EST Psychiatry Inpatient - Progress Note ID: Aziza Alfa Fields is a 51 y.o. female admitted on 06/29/2012 for depression, SI. Pertinent medical issues being addressed: anorexia Interval History: This patient says that she is emotionally feeling better. States she has no suicidal ideation today - although she had some yesterday. She has intense and deadly suicidal plans worked out but SI isfading now.Rates depression as 5/10 today which is better. She says that she has many strategies tomanage her moods at home, including using the treadmill which she cannot do here. Quality: depressed got to get back to life Severity: Patient rates depression as 5/10 Timing: No diurnal variation at mood. Assoc. signs & sxs: Reports no SI today. Slept 11 hours which helped Modifying factors: Patient reports the calm structured environment of the unit has slightly improved mood. Review of Systems: CONST No fever. CV No chest pain. RESP No shortness of breath GI Has not had a bowel movement but had not eaten much until today NEURO No headache. Extent of History Determination: Ceferino descriptors, reviewed systems, and level of history with x. HPI Descriptors 1-3 1-3 x 4 + Reviewed Systems 0 1 x 2-9 Level of Hx PF EPF x D Physical Exam: Vitals (24hr Range): Patient Vitals in the past 24 hrs: BP Temp Temp src Pulse Resp SpO2 07/01/12 0854 106/64 mmHg 36.4 ??C (97.5 ??F) Oral 60 16 98 % 07/01/12 0740 109/68 mmHg 36.3 ??C (97.3 ??F) Oral 72 16 98 % Musculoskeletal System: normal gait and balance, ambulates independently, no atrophy and no abnormal movements Mental Status Exam: Appearance: Appears stated age, well-groomed, good hygiene, thin. Very neat and well put together Behavior: calm, sitting on bed. Cooperative and engaged in the conversation Speech: normal volume and tone Language: no deficits Mood: depressed but better Affect: appropriate and congruent to mood, Thought process: logical, linear, goal-oriented Associations: intact Thought content: no SI, HI, delusions. No current plan, safe here Perception: no AVH Orientation: alert and oriented to person, place, date, time Attn/Concentration: grossly intact with no deficits noted Cognition: wnl Memory: grossly intact with no deficits noted Fund of Knowledge: grossly appropriate to level of education Insight: fair Judgment: fair Extent of Exam Determination: Ceferino completed bullets and level of exam with x. Bullets Completed 1-5 6-8 x 9+ Level of Exam PF EPF x D Scheduled Meds: ??? sertraline 100 mg Oral Daily ??? mirtazapine 15 mg Oral Nightly Continuous Infusions: PRN Meds:.LORazepam, LORazepam, bisacodyl, magnesium hydroxide, docusate sodium, acetaminophen No results found for this or any previous visit (from the past 24 hour(s)). Assessment: Aziza Fields is a 51 y.o. female who presented to [facility] with several recurrent episodes of depression and anxiety with 2 serious plans to commit suicide in the past week in the context of of family friend and worsening psychosocial stressors. Slept better with mirtazepine Status of overall condition: slight improvement Reasons for continued hospitalization: Stabilization. Monitoring for safety. Medication optimization. Primary Diagnosis: MDD r s Plan: Activity: EtG Diet: regular Medications: no change Labs/Consults/Diagnostic Procedures ordered: none Safety Risk Management: Patient at risk for self-harm and should be carefully reassessed for safety before discharge. Disposition: After stabilization, patient expected to return home. Follow up: Psychiatric prescriber: None Therapist: Adriano Elkins PCP: MD Radha SETH LEGAL SUPPORT ANALYST Patient Instruction/Education Provided: Patient provided verbal instructions regarding treatment plan. Coding Determination Complexity of MDM Determination: Ceferino [...] Minimal/None Minimal Straightforward Limited Limited Low Low x Multiple x Moderate x Moderate x Moderate Extensive Extensive High High Subsequent Hospital Day Service Code Determination: Ceferino Hx, Exam, MDM & ANDERSON/CPT Code with x. 2 out of # gresham components in the row must be met toqualify. HISTORY EXAM MDM ANDERSON/CPT CODE PF PF Straightforward/Low 3005/32880 EPF EPF x Moderate 3015/93161 x D x D High x 3025/53572 * Adriel Rashid RN - 06/30/2012 1:45 PM EST Pt has been cooperative. Affect is flat and pt was tearful upon awakening. Reported her depression as 8/10; anxiety as 9/10. Able to contract for safety in the hospital. Attended groups and has been having her meals with peers in the common area. Taking in adequate fluids and has been eating about 50% of her trays which have a modest amt of food. Encouraged pt to eat small frequent nutritional snacks. * Gypsy Su MS - 06/30/2012 12:11 PM EST Inpatient Daily Group Note Group: Goals Attendance: Present Behavior: Conversational Therapeutic Work Observed: Moderate Mood: Calm Notes: Try not to have thoughts of hurting self; talk to staff if feeling unsafe. ROXANA BHATT 06/30/2012 Inpatient Daily Group Note Group: Problem-solving Attendance: Present Behavior: Expressive Therapeutic Work Observed: Moderate Mood: Calm Notes: Patient identified needs to have pati and hope. Patient talked about being very baptist but recently loosing her pati in God. Patient identified friends and yazdanism as resources to reconnect with her pati and said that her first step will be to start to pray again. Inpatient Daily Group Note Group: Walk Notes: Patient walked briskly with other patient and interacted well with that patient. GYPSY SU MS 06/30/2012 * Mallory Cortes MD - 06/30/2012 9:59 AM EST Psychiatry Inpatient - Progress Note ID: Aziza Fields is a 51 y.o. female admitted on 06/29/2012 for depression, SI. Pertinent medical issues being addressed: anorexia Interval History: Tapering QHS Ativan, started mirtazapine, increased Zoloft. Patient appears slightly better. Quality: depressed got to get back to life Severity: Patient rates depression as 10/10 and anxiety as 9/10. Timing: No diurnal variation at mood. Assoc. signs & sxs: Reports passive SI, no plan and CFS. Fair OP intake. Modifying factors: Patient reports the calm structured environment of the unit has slightly improved mood. Good sleep improved mood. Duration: Context: Review of Systems: CONST No fever. No acute complaints CV No chest pain. RESP No shortness of breath GI No nausea. No vomiting. No diarrhea. No constipation. NEURO No headache. Extent of History Determination: Ceferino descriptors, reviewed systems, and level of history with x. HPI Descriptors 1-3 1-3 x 4 + Reviewed Systems 0 1 x 2-9 Level of Hx PF EPF x D Physical Exam: Vitals (24hr Range): Temp: [36.5 ??C (97.7 ??F)-36.6 ??C (97.9 ??F)] Resp: [16] Heart Rate: [59] BP: (95-126)/(55-69) SpO2: -- Musculoskeletal System: normal gait and balance, ambulates independently, no atrophy and no abnormal movements Mental Status Exam: Appearance: Appears stated age, well-groomed, good hygiene, thin Behavior: calm, sitting in chair, no unusual movements, poor eye-contact. Speech: low volume, slow rate, normal articulation, tone, prosody, and latency of response. Spontaneous. Language: no deficits Mood: depressed Affect: appropriate and congruent to mood, blunted affect, smiling though forced Thought process: logical, linear, goal-oriented Associations: intact Thought content: passive SI, HI, delusions. No plan, CFS. Perception: no AVH Orientation: alert and oriented to person, place, date, time Attn/Concentration: grossly intact with no deficits noted Cognition: wnl Memory: grossly intact with no deficits noted Fund of Knowledge: grossly appropriate to level of education Insight: fair Judgment: fair Extent of Exam Determination: Ceferino completed bullets and level of exam with x. Bullets Completed 1-5 6-8 x 9+ Level of Exam PF EPF x D Scheduled Meds: ??? sertraline 50 mg Oral Daily PRN Meds: LORazepam, LORazepam, bisacodyl, magnesium hydroxide, docusate sodium, acetaminophen Labs (over the last 24hr): Recent Results (from the past 24 hour(s)) URINALYSIS WITH MICROSCOPIC Component Value Range ??? Glucose UA Negative Negative (mg/dL) ??? Protein UA Negative (mg/dL) ??? Bilirubin UA Negative Negative (mg/dL) ??? Urobilinogen UA Normal (mg/dL) ??? pH UA 6.5 5.0 - 8.0 ??? Blood UA Negative (mg/dL) ??? Ketones UA Trace (*) Neg (mg/dL) ??? Nitrite UA Negative ??? Leukocytes UA Negative (mcL) ??? Appearance UA Clear Clear ??? Spec [place] UA 1.006 1.002 - 1.030 ??? Color UA Light Yellow Yellow ? ? RBC UA <1 0 - 4 (/HPF) ??? WBC UA Not Present 0 - 5 ? ? Squam Epith UA 2 <=4 (/HPF) ? ? Trans Epith UA <1 <=1 (/HPF) RAPID QUALITATIVE DRUG SCREEN, URINE ([facility]) Component Value Range ??? U NERISSA Screen See Note CBC (WITH DIFF) Component Value Range ??? WBC 5.1 4.0 - 10.0 (x10(3)/mcL) ??? RBC 4.18 3.93 - 5.22 (x10(6)/mcL) ??? Hemoglobin 13.3 11.2 - 15.7 (gm/dL) ??? Hematocrit 39.3 34.0 - 45.0 (%) ??? MCV 94.0 79.0 - 94.0 (fL) ??? MCH 31.8 26.6 - 32.2 (pg) ??? MCHC 33.8 32.0 - 36.5 (gm/dL) ??? Platelets 200 145 - 370 (x10(3)/mcL) ??? RDWSD 44.4 35.0 - 46.0 (fL) ??? RDWCV 12.9 10.9 - 14.4 (%) ??? MPV 11.1 9.0 - 12.0 (fL) ELECTROLYTES PANEL Component Value Range ??? Sodium 137 135 - 145 (mmol/L) ??? Potassium 3.6 3.5 - 5.0 (mmol/L) ??? Chloride 104 98 - 107 (mmol/L) ??? CO2 24 22 - 31 (mmol/L) ??? Anion Gap 9 5 - 15 (mmol/L) BUN Component Value Range ??? BUN 11 8 - 18 (mg/dL) CREATININE, SERUM Component Value Range ??? Creatinine 0.80 0.70 - 1.20 (mg/dL) ? ? Estimated GFR >60 >=60 HEPATIC FUNCTION PANEL Component Value Range ??? Total Protein 6.8 6.4 - 8.3 (gm/dL) ??? Albumin 4.1 3.2 - 5.2 (gm/dL) ??? AST 22 0 - 30 (unit/L) ??? ALT 19 0 - 30 (unit/L) ??? Alk Phos 37 (*) 40 - 104 (unit/L) ??? Total Bilirubin 0.5 0.2 - 1.3 (mg/dL) ??? Bili, Direct 0.1 0.0 - 0.3 (mg/dL) TSH Component Value Range ??? TSH 2.06 0.27 - 4.20 (mcIU/mL) ETHANOL LEVEL Component Value Range ? ? Ethanol Lvl <100 (mg/L) ACETAMINOPHEN LEVEL Component Value Range ? ? Acetamin Lvl <15 (*) 10 - 30 (mg/L) SALICYLATE Component Value Range ? ? Salicylate Lvl <20 (mg/L) DIFFERENTIAL, AUTOMATED Component Value Range ??? Neutrophils % 54.0 34.0 - 71.0 (%) ??? Neutr Abs (ANC) 2.74 1.50 - 6.30 (x10(3)/mcL) ??? Lymphocytes % 37.3 19.0 - 53.0 (%) ??? Lymphocytes Abs 1.9 1.0 - 3.6 (x10(3)/mcL) ??? Monocytes % 7.1 4.0 - 13.0 (%) ??? Monocyte Abs 0.4 0.2 - 1.0 (x10(3)/mcL) ??? Eosinophils % 0.6 0.0 - 7.0 (%) ??? Eosinophils Abs 0.0 0.0 - 0.5 (x10(3)/mcL) ??? Basophils % 0.8 0.0 - 2.0 (%) ??? Basophils Abs 0.0 0.0 - 0.2 (x10(3)/mcL) ??? Immature Gran % 0.20 0.00 - 0.66 (%) ??? Diana Gran Abs 0.01 0.00 - 0.05 (x10(3)/mcL) Assessment: Aziza Fields is a 51 y.o. female who presented to [facility] with several recurrent episodes of depression and anxiety with 2 serious plans to commit suicide in the past week in the context of of family friend and worsening psychosocial stressors. Patient reports trauma related nightmares, consider prazosin 1mg, will monitor blood pressure before starting. Continue Zoloft, increase to 100mg. Will taper QHS Ativan and start mirtazapine. Status of overall condition: No Change Reasons for continued hospitalization: Stabilization. Monitoring for safety. Medication optimization. Primary Diagnosis: MDD r s Plan: Activity: EtG Diet: regular Medications: Mood Increased Zoloft to 100mg QD Sleep/anxiety For sleep, patient will receive Ativan 0.5mg QHS for tonight and stop for tomorrow night. Will keep0.5mg QD PRN for anxiety. Added mirtazapine 15mg QHS for sleep. Nightmares Patient may benefit from starting Prazosin 1mg QHS Labs/Consults/Diagnostic Procedures ordered: none Safety Risk Management: Patient at risk for self-harm and should be carefully reassessed for safety before discharge. Disposition: After stabilization, patient expected to return home. Follow up: Psychiatric prescriber: None Therapist: Adriano Elkins PCP: MD Radha SETH LEGAL SUPPORT ANALYST Patient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 approved for one day of treatment from her insurance company, . Reference number [id number], review due tomorrow. DASIA Tam, [facility] documented in this encounter Miscellaneous Notes * Discharge Summary - Mallory Cortes MD - 07/05/2012 10:03 AM EST Psychiatry Inpatient- Discharge Summary Patient Name: Aziza Fields Patient Age: 51 y.o. Date of : 1960 Admission Date: 06/29/2012 Discharge Date: 07/05/2012 Attending Physician: Jeanna Delgado MD Resident Physician: Mallory Cortes MD Discharge Diagnoses (Hospital Problems) and Secondary Diagnoses (Chronic Problems): Active Hospital Problems Diagnoses ??? MDD (major depressive disorder), recurrent episode, severe Resolved Hospital Problems Diagnoses Date Resolved Active Non-Hospital Problems Diagnoses ??? MDD (major depressive disorder), recurrent episode, severe ??? Mood disorder Reason for Hospitalization: Safety, stabilization and medication management. Discharge Multi-axial Diagnosis: Fayette I: MDD r s Fayette II: deferred Fayette III: none Fayette IV: recent of friend, hunter, Fayette V: Admission GAF: 25 Discharge GAF: 62 History of Presentation: Patient was interviewed in the presence of her sister Cathy and friend Radha who is also her PCP (LEGAL SUPPORT ANALYST) who confirmed the following history. Aziza Fields is a 51 y.o. Female who who was brought to [facility] by her friends Cathy and Radha today for depression and SI. Patient has endured several episodes of depression over the past 20 years with one prior suicide attempt 10 years ago and 3 prior psychiatric hospitalizations. Patient had been doing well for several years till she decompensated 6 weeks ago after the suicide of a family friend, Aurelio, who she treated like a son. Since then, she describes her life as a roller coaster ride. 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 Describes this meltdown as full body pain and incessently crying forno reason. In retrospect, patient hypothesized that working on her advanced directive that day may have contributed to her lability. Patient tried to go to work on Tuesday but was sent home early. Rates her depression as 10/10 at this time and reports the first time she felt suicidal was Tuesday with plan to overdose on her full bottle of Vicodin, benadryl, and to package pick up a fresh prescription of lorazepam to take as well. Patient devised the logistics of the plan in her head during work on Tuesday, however, she became fearful and aborted the plan, adding that she was not sure if she was afraidshe would fail or succeed to kill herself. Patient told a fellow co-worker who then informed her PCP, Radha Hernandez NP, of the situation. Radha prescribed the patient Zoloft 50mg and instructed her togo home and take a few days off of work where she could stay under the watchful eye of her .Her proceeded to remove the guns from their household before her return. Patient's depression and suicidal ideation continued to worsen. Patient reports that last night, she went to the basement of her house and analyzed the lumber rafters which made up the ceiling and selected a good place to hang herself. This morning, patient returned to the basement, and using the belt from her bathrobe, tested to see if the wood would hold her weight which it did. After several moments of contemplation, decided not to follow through with it, citing that she did not want her sister to find her and hanging downstairs in the basement. Patient returned upstairs and called her therapist who told her she needed to go to the hospital which was not what I wanted to hear. Patient was subsequently brought to [facility] by Roberto. Patient describes her recent state of mind as fucked up and reports having to come back to the hospital as a failure. Patient's last psychiatric hospitalization was 10 years ago when she was admitted in 06/2001 and 09/2001 after a suicide attempt by overdosing on a bottle of clonazepam. During this previous admission 10 years ago, patient received an estimated 21 ECTs which was successful as reducing her depression. Today, patient reports a part of her wants to live and has a responsibilityto family and friends and a part of her wants to end her emotional pain by killing herself. Patientreports a poor appetite the last few days and poor sleep, however, the past month she has taken 1mgof Ativan QHS for sleep which has helped. Patient reports poor energy and can crawl in bed and stay there all day. Endorses anhedonia, no longer enjoying biking and gardening. Patient's mood symptoms started 17 years ago when her first from a heart attack in front of her. Patient endorses re-experience of these, nightmares and flashbacks, as well as avoidance symptoms. Patient also endures a significant amount of anxiety for which she takes Ativan 0.5mg QD PRN which helps. Another stressor and source of worry centers around her son who has recently returned from [place]. She fears that her son may kill himself because their family friend Aurelio did. Denies AVH and manic symptoms. Patient is currently denying SI and CFS while on the unit. Patient also reports a history of anorexia, however, she currently denies suffering from now. Reports EtOH consumption has doubled since the of her friend Aurelio, last drink Tuesday, denies complicated withdraws. Hospital Course: Aziza Fields was voluntarily admitted to inpatient psychiatry for safety, stabilization, and medication optimization. Standard admission labs were reviewed and wnl. Aziza Fields is a 51 y.o. female who presented to [facility] with several recurrent episodes of depression and anxiety with 2 serious plans to commit suicide in the past week in the context of of family friend and worsening psychosocial stressors. On admission, patient was very depressed with corresponding blunted/flat affect. Patient's mood significantly improved during admission, more positive and forward thinking, eager to return home. Patient has a distant history of anorexia, during this hospitalization, appetite was significantly improved as depressive episode lifted. Patient was admitted on 50mg of Zoloft which was increased to 100mg daily. Patient reports this greatly helped mood and patient now recognizes she will now need to be on medications for depression even when she is not in a depressive episode. Patient also complained of difficulty sleeping on and before admission. Tapered patient off of lorazepam which patient had been taking for sleep and anxiety. Started patient on 15mg QHS of mirtazapine and was increased to 30mg QHS which patient responded well to during this hospitalization. Consistently denied suicidal ideation throughout this hospitalization, was positive and forward thinking asking for letter to return to work after she completes PPHP starting tomorrow morning. On the day of discharge, the patient denied thoughts of suicide, homicide, or violence. Follow up was scheduled as described below, and this information was provided to the patient in her After VisitSummary. Patient was also provided with emergency contact information. Important Lab Data: Results for AZIZA FIELDS ( ) as of 07/05/2012 10:05 Ref. Range 06/29/2012 18:38 WBC Latest Range: 4.0-10.0 x10(3)/mcL 5.1 RBC Latest Range: 3.93-5.22 x10(6)/mcL 4.18 Hemoglobin Latest Range: 11.2-15.7 gm/dL 13.3 Hematocrit Latest Range: 34.0-45.0 % 39.3 MCV Latest Range: 79.0-94.0 fL 94.0 MCH Latest Range: 26.6-32.2 pg 31.8 MCHC Latest Range: 32.0-36.5 gm/dL 33.8 RDWSD Latest Range: 35.0-46.0 fL 44.4 RDWCV Latest Range: 10.9-14.4 % 12.9 Platelets Latest Range: 145-370 x10(3)/mcL 200 MPV Latest Range: 9.0-12.0 fL 11.1 Neutr Abs (ANC) Latest Range: 1.50-6.30 x10(3)/mcL 2.74 Neutrophils % Latest Range: 34.0-71.0 % 54.0 Immature Gran % Latest Range: 0.00-0.66 % 0.20 Lymphocytes % Latest Range: 19.0-53.0 % 37.3 Monocytes % Latest Range: 4.0-13.0 % 7.1 Eosinophils % Latest Range: 0.0-7.0 % 0.6 Basophils % Latest Range: 0.0-2.0 % 0.8 Diana Gran Abs Latest Range: 0.00-0.05 x10(3)/mcL 0.01 Lymphocytes Abs Latest Range: 1.0-3.6 x10(3)/mcL 1.9 Monocyte Abs Latest Range: 0.2-1.0 x10(3)/mcL 0.4 Eosinophils Abs Latest Range: 0.0-0.5 x10(3)/mcL 0.0 Basophils Abs Latest Range: 0.0-0.2 x10(3)/mcL 0.0 Total Bilirubin Latest Range: 0.2-1.3 mg/dL 0.5 Bili, Direct Latest Range: 0.0-0.3 mg/dL 0.1 Alk Phos Latest Range: 40-104 unit/L 37 (L) AST Latest Range: 0-30 unit/L 22 ALT Latest Range: 0-30 unit/L 19 Sodium Latest Range: 135-145 mmol/L 137 Potassium Latest Range: 3.5-5.0 mmol/L 3.6 Chloride Latest Range: 98-107 mmol/L 104 CO2 Latest Range: 22-31 mmol/L 24 Anion Gap Latest Range: 5-15 mmol/L 9 BUN Latest Range: 8-18 mg/dL 11 Creatinine Latest Range: 0.70-1.20 mg/dL 0.80 Estimated GFR Latest Range: >=60 >60 Total Protein Latest Range: 6.4-8.3 gm/dL 6.8 Albumin Latest Range: 3.2-5.2 gm/dL 4.1 Acetamin Lvl Latest Range: 10-30 mg/L <15 (L) Salicylate Lvl No range found <20 Ethanol Lvl No range found <100 TSH Latest Range: 0.27-4.20 mcIU/mL 2.06 Important Studies: None. Pending Studies and Lab Data: The patient will need the following test completed on: 06/29/2012 1. Full code Authorizing Provider: Jeanna Delgado MD ECT, Operations, or Other Major Procedures: None. Discharge Conditions/Prognosis: Satisfactory condition. Prognosis is dependent on patient's participation in ongoing treatment and compliance with medications. Discharge to: Home. Patient to follow up at [facility] tomorrow morning. Discharge Medications: Discharge Medication List as of 07/05/12 12:45 PM New Meds Details mirtazapine (REMERON) 30 mg tablet Take 1 tablet by mouth nightly., Oral, NIGHTLY Starting 07/05/2012, Until Discontinued, Disp-30 tablet, R-0, Print Continued medications with revised dosing Details sertraline (ZOLOFT) 100 mg tablet Take 1 tablet by mouth daily., Oral, DAILY Starting 07/05/2012, Until Discontinued, Disp-30 tablet, R-0, Print Medications STOPPED LORazepam (ATIVAN) 0.5 mg tablet LORazepam (ATIVAN) 0.5 mg tablet Updated Allergies/ADRs: Allergies Allergen Reactions ??? Latex CIS - HIVES ??? Sulfa (Sulfonamide Antibiotics) CIS - Hives ??? Gloves, Latex Follow-up Recommendations for Providers: - Monitor patient's condition and adjust treatment/medications as appropriate. > We have started you on mirtazapine 30mg to take nightly for sleep. > We have increased your sertraline (Zoloft) to 100mg to take daily for sleep. > You are scheduled to start PPHP tomorrow morning, please arrive at admission at 8:15AM on 07/06/2012 > We have stopped patient's lorazepam for anxiety and sleep. Restart as appropriate. Instructions Given to Patient at Discharge: Provider Instructions PATIENT DISCHARGE INSTRUCTIONS Vital Signs: Vital Signs Temp: 37.1 ??C (98.8 ??F) Temp Source: Oral Heart Rate: 57 Resp: 16 BP: 109/70 mmHg BP Method: Automatic SpO2: 99 % O2 Device: None (Room air) Operations and Procedures: none Important Lab Data: Results for AZIZA FIELDS ( ) as of 07/05/2012 10:05 Ref. Range 06/29/2012 18:38 WBC Latest Range: 4.0-10.0 x10(3)/mcL 5.1 RBC Latest Range: 3.93-5.22 x10(6)/mcL 4.18 Hemoglobin Latest Range: 11.2-15.7 gm/dL 13.3 Hematocrit Latest Range: 34.0-45.0 % 39.3 MCV Latest Range: 79.0-94.0 fL 94.0 MCH Latest Range: 26.6-32.2 pg 31.8 MCHC Latest Range: 32.0-36.5 gm/dL 33.8 RDWSD Latest Range: 35.0-46.0 fL 44.4 RDWCV Latest Range: 10.9-14.4 % 12.9 Platelets Latest Range: 145-370 x10(3)/mcL 200 MPV Latest Range: 9.0-12.0 fL 11.1 Neutr Abs (ANC) Latest Range: 1.50-6.30 x10(3)/mcL 2.74 Neutrophils % Latest Range: 34.0-71.0 % 54.0 Immature Gran % Latest Range: 0.00-0.66 % 0.20 Lymphocytes % Latest Range: 19.0-53.0 % 37.3 Monocytes % Latest Range: 4.0-13.0 % 7.1 Eosinophils % Latest Range: 0.0-7.0 % 0.6 Basophils % Latest Range: 0.0-2.0 % 0.8 Diana Gran Abs Latest Range: 0.00-0.05 x10(3)/mcL 0.01 Lymphocytes Abs Latest Range: 1.0-3.6 x10(3)/mcL 1.9 Monocyte Abs Latest Range: 0.2-1.0 x10(3)/mcL 0.4 Eosinophils Abs Latest Range: 0.0-0.5 x10(3)/mcL 0.0 Basophils Abs Latest Range: 0.0-0.2 x10(3)/mcL 0.0 Total Bilirubin Latest Range: 0.2-1.3 mg/dL 0.5 Bili, Direct Latest Range: 0.0-0.3 mg/dL 0.1 Alk Phos Latest Range: 40-104 unit/L 37 (L) AST Latest Range: 0-30 unit/L 22 ALT Latest Range: 0-30 unit/L 19 Sodium Latest Range: 135-145 mmol/L 137 Potassium Latest Range: 3.5-5.0 mmol/L 3.6 Chloride Latest Range: 98-107 mmol/L 104 CO2 Latest Range: 22-31 mmol/L 24 Anion Gap Latest Range: 5-15 mmol/L 9 BUN Latest Range: 8-18 mg/dL 11 Creatinine Latest Range: 0.70-1.20 mg/dL 0.80 Estimated GFR Latest Range: >=60 >60 Total Protein Latest Range: 6.4-8.3 gm/dL 6.8 Albumin Latest Range: 3.2-5.2 gm/dL 4.1 Acetamin Lvl Latest Range: 10-30 mg/L <15 (L) Salicylate Lvl No range found <20 Ethanol Lvl No range found <100 TSH Latest Range: 0.27-4.20 mcIU/mL 2.06 Pending Lab Data at Discharge: none Discharge Disposition: Discharge home. Will attend [facility] starting tomorrow. Primary Care Physician: MALLORY HATCH MD [phone] Special Physician Instructions: > We have started you on mirtazapine 30mg to take nightly for sleep. > We have increased your sertraline (Zoloft) to 100mg to take daily for sleep. > You are scheduled to start PPHP tomorrow morning, please arrive at admission at 8:15AM on 07/06/2012 > We have stopped your lorazepam (Ativan) please do not utilize this medication for sleep/anxiety unless restarted by your outpatient prescriber. [facility] Partial Hospitalization Program (PPH) [facility] is open Tuesday through Tuesday 8:30-4:30pm except for Holidays. The program is a short-term group therapy program that focuses on skill building as it relates to managing psychiatric symptoms andstress. The program is based on a Cognitive-Behavioral and Mindfulness orientation. Patient stay varies from 2-6 days depending on individual needs and insurance eligibility. Important Phone Numbers: Emergency assistance: [facility] to leave a message: Tuesday-Tuesday Schedule Goals Group 9:00-10:00 Rounds: 10:00-11: Coping Skills 11:00-12:00 Lunch 12:00-1:00 Coping Skills 1:00-2:00 Relapse Prevention Group 2:30-3:30 Patient instructions: On the day of admission please arrive at the hospital admission office shortly by 8:15am (window immediately left after passing the rotunda on level 3). After registering please come directly to the [facility] area located on Level 2 of the [facility]. Please call [phone] if you will not attend as scheduled. The program provides you with lunch. The program does not provide medications so please take and/orbring the medications you need for the day with you. Special Instructions Provided to Aziza Fields: Call your doctor, your local mental health center, or your local emergency room if you develop worsening symptoms of depression, anxiety, thoughts of harming yourself, thoughts of harming others, or any other decline in your overall condition. Local [facility] Mental Health Emergency Services: [facility] Emergency Services: [phone] [facility] Central Access Services: [phone] [facility] Main Line: [phone] Activity level: no restrictions from psychiatry Diet: no restrictions from psychiatry Driving: do not drive if sedated by medications Medications have been reviewed with the patient and the patient understands the use and side effects of these medications as evidenced by discussions on interdisciplinary rounds. Follow up appointments (external or yet-to-be scheduled): Please see AVS. General Instructions Radha Hurt Tuesday @ [address] [place] [address] Adriano Svitlana [address] [place] [id number] Follow Up Providers/Appointments (if not listed above): Please see AVS. Future Appointments and Orders Future Orders Please Complete By Expires Full code [COD2 Custom] Process Instructions: 1) Ordering MD or ICE CREAM CHEF must provide Order Justification documentation for a: [...] Attending of Record, the ordering MD or ICE CREAM CHEF must obtain (verbal) approval of the Attending of Record. Completing this documentation indicates that you have obtained verbal approval from the Attending of Record Scheduling Instructions: Comments: Questions: Responses: Responsible decision maker(s), other than patient Does patient have decision making capacity? Yes, Order is based on Patients wishes. Content of discussion: Discharge References/Attachments None Signed: MALLORY CORTES MD 07/05/2012 * Med Student Progress Note - Claudia Rashid - 07/05/2012 9:47 AM EST Psychiatry Inpatient - Progress Note ID: Aziza Fields is a 51 y.o. female admitted on 06/29/2012 for depression, SI. Pertinent medical issues being addressed: anorexia Interval History: Quality: Patient reports feeling much better, but anxious about being discharged today. Severity: Patient reports her depression as 3/10 and anxiety as 5/10. Denies SI x 3-4 days. Timing: Improved mood since yesterday, and significantly better than at time of admission. Assoc. signs & sxs: Slept 6 hours. Appetite good and eating 3 meals/day. Anxious about being discharged, but looking forward to it. Patient thinks PPHP will be very helpful. Modifying factors: Effect of medications: Remeron is helping with sleep. Zoloft helpful for mood symptoms. Did not take Ativan last night for sleep. Effect of groups: helpful Review of Systems: CONST No fever. CV No chest pain. RESP No shortness of breath GI No nausea. No vomiting. No diarrhea. No constipation. NEURO No headache. Extent of History Determination: Ceferino descriptors, reviewed systems, and level of history with x. HPI Descriptors 1-3 1-3 4 + Reviewed Systems 0 1 2-9 Level of Hx PF EPF D Physical Exam: Vitals (24hr Range): Temp: [37.1 ??C (98.8 ??F)] Resp: [16] Heart Rate: [57] BP: (109)/(70) SpO2: -- Musculoskeletal System: normal gait and balance, ambulates independently, no atrophy and no abnormal movements Mental Status Exam: ?? Appearance: thin, age appropriate and casually dressed Behavior: calm, sitting in chair, no unusual movements, good eye-contact ?? Speech: normal rate, volume, tone, prosody, no latency of response. Spontaneous. ?? Language: no deficits ?? Mood: good, better Affect: appropriate, blunted and mood-congruent ?? Thought Process: logical, linear, goal-oriented ?? Associations: intact ?? Thought Content: no SI, HI. No plan, CFS. Perception: no AVH. no delusions. no paranoia. ?? Orientation: person, place and time/date ?? Attention/Concentration: grossly intact with no deficits noted Cognition: grossly intact ?? Memory: recent and remote memory intact ?? Fund of Knowledge: grossly appropriate to level of education ?? Insight: good Judgment: good Extent of Exam Determination: Ceferino completed bullets and level of exam with x. Bullets Completed 1-5 6-8 9+ Level of Exam PF EPF D Scheduled Meds: ??? mirtazapine 30 mg Oral Nightly ??? sertraline 100 mg Oral Daily PRN Meds: calcium carbonate, LORazepam, bisacodyl, magnesium hydroxide, docusate sodium, acetaminophen Labs (over the last 24hr): No results found for this or any previous visit (from the past 24 hour(s)). Assessment: Aziza Fields is a 51 y.o. female admitted for SI and depression due to the recent of someone close to her and psychosocial stressors. Her mood has improved significantly through the aid of groups, medications, and the calm structured environment of the department. Her appetite has improved and she is eating 3 meals per day. She denies SI x 3-4 days. She will continue mirtazapine and zoloft for sleep and mood. She will start PPHP tomorrow and she is looking forward to it. She is anxious about being discharged, but looking forward to going home and returning to work. Status of overall condition: Markedly Improved Reasons for continued hospitalization: Stabilization. Monitoring for safety. Medication optimization. Primary Diagnosis: Major Depressive Disorder, Recurrent, Severe Plan: Activity: Escort Diet: regular Medications: Mood: Zoloft 100 mg QD Sleep/anxiety: Ativan 0.5 mg QD PRN for anxiety Mirtazapine 30 mg QHS for sleep Discharge today. Labs/Consults/Diagnostic Procedures ordered: none Safety Risk Management: At risk for self harm, will reassess prior to discharge. Disposition: After stabilization, patient expected to return home today. Follow up: Psychiatric prescriber: none Therapist: Adriano Elkins PCP: Mallory Hatch MD; Radha Hurt NP Patient Instruction/Education Provided: Patient provided verbal instructions regarding treatment plan. I have reviewed and agree with the multidisciplinary treatment plan. Claudia Rashid 07/05/2012 Coding Determination Complexity of MDM Determination: Ceferino [...] EXAM MDM ANDERSON/CPT CODE PF PF Straightforward/Low 3005/32749 EPF EPF Moderate 3015/63765 D D High 3025/23947 * Plan of Care - Veronica Taylor RN - 07/04/2012 6:42 PM EST Problem: Trauma/Injury Risk (Adult, Obstetric) Intervention: Promote Self-Care Encourage discharge planning. * Med Student Progress Note - Claudia Rashid - 07/03/2012 11:00 AM EST Psychiatry Inpatient - Progress Note ID: Aziza Fields is a 51 y.o. female admitted on 06/29/2012 for depression, SI. Pertinent medical issues being addressed: anorexia Interval History: Quality: Patient reports she is good with an improved mood. Severity: Patient reports her depression as 4/10 and anxiety as 7/10. Timing: Patient reports improved mood since admission. Assoc. signs & sxs: Reports good sleep and appetite. Denies SI. CFS. Modifying factors: Effect of medications: Remeron less effective for sleep than the first night. Zoloft helping improve her mood. Ativan helping reduce her anxiety. Effect of groups: helpful Review of Systems: CONST No fever. CV No chest pain. RESP No shortness of breath GI No nausea. No vomiting. No diarrhea. No constipation. NEURO No headache. Extent of History Determination: Ceferino descriptors, reviewed systems, and level of history with x. HPI Descriptors 1-3 1-3 4 + Reviewed Systems 0 1 2-9 Level of Hx PF EPF D Physical Exam: Vitals (24hr Range): Temp: [37 ??C (98.6 ??F)] Resp: [16] Heart Rate: [72] BP: (114)/(73) SpO2: -- Musculoskeletal System: normal gait and balance, ambulates independently, no atrophy and no abnormal movements Mental Status Exam: ?? Appearance: good hygiene, thin, age appropriate and casually dressed Behavior: calm ?? Speech: low volume, normal articulation and normal pitch ?? Language: normal ?? Mood: good Affect: appropriate, blunted and mood-congruent ?? Thought Process: logical, linear, goal-oriented ?? Associations: intact ?? Thought Content: no SI, HI Perception: no AVH. no delusions. no paranoia. ?? Orientation: person, place, time/date and situation ?? Attention/Concentration: grossly intact with no deficits noted Cognition: grossly intact ?? Memory: recent and remote memory intact ?? Fund of Knowledge: grossly appropriate with no deficits noted ?? Insight: fair Judgment: fair Extent of Exam Determination: Ceferino completed bullets and level of exam with x. Bullets Completed 1-5 6-8 9+ Level of Exam PF EPF D Scheduled Meds: ??? mirtazapine 30 mg Oral Nightly ??? sertraline 100 mg Oral Daily ??? DISCONTD: mirtazapine 15 mg Oral Nightly PRN Meds: LORazepam, bisacodyl, magnesium hydroxide, docusate sodium, acetaminophen Labs (over the last 24hr): No results found for this or any previous visit (from the past 24 hour(s)). Assessment: Aziza Fields is a 51 y.o. female admitted for SI and depression due to the recent of someone whom she considered to be like a son to her and psychosocial stressors. She reports her mood improved over the weekend. Her and son came to visit, which she reports was a good visit. She is encouraged to continue to attend groups, continue her medications and interact with the other patients. Status of overall condition: Slightly Improved Reasons for continued hospitalization: Stabilization. Monitoring for safety. Medication optimization. Primary Diagnosis: Major Depressive Disorder, Recurrent, Severe Plan: Activity: Escort to Group Diet: regular Medications: Continue current medications Labs/Consults/Diagnostic Procedures ordered: none Safety Risk Management: At risk for self harm, reassess prior to discharge. Disposition: After stabilization, patient expected to return home.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
--- OUTSIDE RECORDS SUMMARY | 2024-04-12 11:21 | XMS_ITS | Encounter Summary ---
Author Organization [facility] [place] [address] Care Team Providers Care Powder Mixer Name Role Phone Liang Deluca MD Primary Care Provider [phone] Encounter Details Date Type Department Care Team (Latest Contact Info) Description 07/11/2012 Unscheduled Encounter [facility] [place] [address] Antonio Villaseñor MD [facility] [place] [address] Recur major depress, severe (Primary Dx) Social History Tobacco Use Types [...] Sign Reading Time Taken Comments Blood Pressure 96/67 07/11/2012 1:36 PM EST Pulse 59 07/11/2012 1:36 PM EST Temperature 36.3 ??C (97.3 ??F) 07/11/2012 1:36 PM ES T Respiratory Rate 18 07/11/2012 1:36 PM EST Oxygen Saturation - - Inhaled Oxygen Concentration - - Weight 55.3 kg (122 lb) 07/11/2012 1:36 PM EST Height 167.6 cm (5' 6) 07/11/2012 1:36 PM EST Body Mass Index 19.69 07/11/2012 1:36 PM EST documented in this encounter Progress Notes * Veronica Taylor RN - 07/11/2012 1:40 PM EST [facility] Daily Progress Nurse Note: Aziza Tamez 1960 [id number] Safety: Patient denises risk Mood/Affect: Hopeful and Depressed - 6 Anxiety: Anxious - 6 Behavior: Calm Speech: WNL Cognition: Alert and Oriented Appearance: WNL Thought Content: WNL Sleep: 8 Hours Slept Activity: WNL Energy: WNL Perceptual Disturbance: WNL Eating: WNL Medications: Taking as prescribed * Kya Su MS - 07/11/2012 1:26 PM EST [facility] Daily Progress Note - Group Notes: Aziza Tamez 1960 [id number] Group: Group Therapy - Greater than 45 minutes Topic: Goals Group Attendance: Present Behavior: Quiet Therapeutic Work Observed: Minimal Mood: Anxious and Irritable Assessment:Patient said that her evening was fine and said that she felt very anxious because shefelt that the last group did not end on a positive note when topics about Thanksgiving was brought up (by therapist) because she has worries about the Holidays. Patient said that she wants to keep an open lens today and stay in the day and not worry about returning to work on Tuesday. Progress Towards Goal: Patient show halted progress due to increased anxiety and increased avoidance interfering with use of coping skills. Kya Su [facility] Chief Mental Health Therapist Psychiatric Partial Hospitalization Program [facility] Daily Progress Note - Group Notes: Aziza Tamez 1960 [id number] Group: Group Therapy - Greater than 45 minutes Topic: Cognitive-Behavioral Therapy Skills Attendance: Present Behavior: Expressive Therapeutic Work Observed: Moderate Mood: Anxious Assessment: Patient reviewed tool and identified ways of thinking that increase her anxiety and depression. Patient talked about the need to do it perfectly and when she can't get it perfect in particular at work it increases her distress. Patient also shared making assumptions about what people think or feel about her and comparing herself endlessly to others always falling short. Patient cristhian lied tool to going home. Progress Towards Goal: Patient show progress as indicated above. Patient show great insight but struggles with accepting help/trusting others. Kya Su [facility] Hospitalization Program [facility] Daily Progress Note - Group Notes: Aziza Grimm Dashawn 1960 [id number] Group: Group Therapy - Greater than 45 minutes Topic: Self-esteem Skills Attendance: Present Behavior: Expressive Therapeutic Work Observed: Moderate Mood: Anxious Assessment: Patient reviewed tool and practiced viewing herself from a strength perspective. Patient discussed noticing great physical self-care skills, support, beliefs and questioning how did I get so far down when I was doing everything right. Patient did identify only going to counseling once and not taking medications during this period thinking to herself I can do it but now stating that it did not work. Patient was encouraged to recognize her polarized way of thinking in regards tohospitalization (a failure). Patient did note that she struggled with identifying actions skills that can help her change the situation. Progress Towards Goal: Patient show progress as indicated above. Kya Su [facility] Hospitalization [facility] Daily Progress Note - Group Notes: Aziza L Dashawn 1960 [id number] Group: Group Therapy - Greater than 45 minutes Topic: Relapse Prevention Group Attendance: Present Behavior: Expressive Therapeutic Work Observed: Moderate Mood: Anxious Assessment: Patient shared meeting her goal to stay in the present today. Patient said that she recognized her ways of thinking that increase anxiety and her way of doing things due to feeling responsible to make everybody happy. Patient discussed feeling bad about not hosting a Thanksgiving Dinner for her family and her best friend this year. Patient recognized having to set a boundary to meet her own need for calm and rest. Patient has plan to go to her sister's house for Thanksgiving. Patient contracted to stay safe and has plan to talk to and request that he be home when she arrives back home tomorrow to ease her transition. Progress Towards Goal: Patient show progress as indicated above. Kya Su [facility] Hospitalization Program documented in this encounter Plan of Treatment Not on file documented as of this encounter Visit Diagnoses Diagnosis Major depressive disorder, recurrent episode, severe, without mention of psychotic behavior- Primary documented in this encounter Care Teams Powder Mixer Relationship Specialty Start Date End Date Liang Deluca MD [address] [place] [address] [place] [address] PCP - General 07/14/10 09/29/15 documented as of this encounter
--- OUTSIDE RECORDS SUMMARY | 2024-04-12 11:21 | XMS_ITS | Encounter Summary ---
[place] [address] Care Team Providers Care Set Up Technician Name Role Phone Mallory Hatch MD Primary Care Provider Encounter Details Date Type Department Care Team (Latest Contact Info) Description 12/17/2012 1:09 AM EDT - 12/20/2012 2:35 PM EDT Hospital Encounter [address] [place] [address] Ji Swift MD [facility] [place] [address] Holly Connolly MD [facility] [place] [address] Insomnia (Primary Dx); MDD (major depressive disorder), recurrent episode, severe; Suicidal ideations Discharge Disposition: Home Social History Tobacco Use [...] Sign Reading Time Taken Comments Blood Pressure 99/68 12/20/2012 7:47 AM EDT Pulse 81 12/20/2012 7:47 AM EDT Temperature 37.1 ??C (98.8 ??F) 12/20/2012 7:47 AM ED T Respiratory Rate 14 12/20/2012 7:47 AM EDT Oxygen Saturation 97% 12/18/2012 8:04 AM EDT Inhaled Oxygen Concentration - - Weight 53 kg (116 lb 13.5 oz) 12/17/2012 1:00 AM EDT Height 170.2 cm (5' 7) 12/17/2012 1:00 AM EDT Body Mass Index 18.3 12/17/2012 1:00 AM EDT documented in this encounter Discharge Instructions * Patient Instructions* Michael Wheatley MD - 12/20/2012 9:01 AM EDT PATIENT DISCHARGE INSTRUCTIONS Discharge Disposition: Home Primary Care Physician: MALLORY HATCH MD [phone] Special Physician Instructions: - Mirtazepine titrated back to 30mg Nightly - Sertraline kept at dose of 150mg Daily, could be weaned back down to 100mg daily as an outpatientonce more stable - Ativan use minimized to try to get patient to engage in group therapy and using coping skills fordealing with stress and depression rather than benzodiazepines. Special Instructions Provided to Aziza Tamez: Call your doctor, your local mental health center, or your local emergency room if you develop worsening symptoms of depression, anxiety, thoughts of harming yourself, thoughts of harming others, or any other decline in your overall condition. [facility] Emergency Services: [facility]CRS [phone] [facility] Emergency Services: [phone] [facility] Central Access Services: [phone] [facility] Main Line: [phone] Activity level: no restrictions from psychiatry Diet: no restrictions from psychiatry Driving: do not drive if sedated by medications Medications have been reviewed with the patient and the patient understands the use and side effects of these medications as evidenced by discussions on interdisciplinary rounds. Follow up appointments (external or yet-to-be scheduled): Dr. Susan MD psychiatrist. Appointment on October 21, 2012 in [place], [place] Therapy to be arranged by the patient per her preference. documented in this encounter Medications at Time [...] Depressive Disorder 30 tablet 0 12/20/2012 08/21/2013 sertraline (ZOLOFT) 100 mg tabletIndications:cris r depressive disorder Take 150 mg by mouth daily. Indications: Major Depressive Disorder 08/21/2013 temazepam (RESTORIL) 15 mg capsuleIndications:ins omnia Take 30 mg by mouth nightly as needed. Indications: Insomnia 08/21/2013 ibuprofen (ADVIL;MOTRIN) 600 mg tabletIndications:pain Take 600 mg by mouth every 6 hours as needed. Indications: Pain 09/30/2015 hydroCODone-acetaminop hen (VICODIN) 5-500 mg per tabletIndications:pain Take 0.5 tablets by mouth 2 times daily as needed. Indications: Pain 10/25/2013 documented as of this encounter Progress Notes * Nataly Hendrix RN - 12/20/2012 2:34 PM EDT Psychiatric Nursing Discharge Note Patient Completed Relapse Prevention Plan: yes Patient aware of follow-up appointments: yes Patient evidences understanding of medication use and regime: yes Patient belongings returned: cellphone Patient left unit with: At what time? 1430 * Sachi Palma SENIOR CONTROL SYSTEMS ENGINEER - 12/20/2012 2:22 PM EDT Inpatient Daily Group Note Group: Open Discussion Group Attendance: Present Behavior: Relevant Therapeutic Work Observed: Moderate Mood: Stable Notes: The group primarily focused on identifying needs, setting limits with others and balance. Pttalked about recognizing in the past that she had to set limits and not take on too much but then fell back into that old pattern. Pt looking at how not to let this happen again. ALEXANDER ARMSTRONG 12/20/2012 Inpatient Daily Group Note Group: Goals Attendance: Present Behavior: Relevant and Attentive Therapeutic Work Observed: Moderate Mood: Anxious Notes: Pt reviewed AIYANA program and module 3, received CUB, TME, TAME, and GEM worksheets. Pt identified goals for today as get ready for discharge, think positively, try not to project into the future - stay in the day, not make any impulsive decisions by writing things down and sticking with her schedule, visit with a friend on the way home, and identified her GEM as spending time with her cat on the patio this evening. DASIA LINDER 12/20/2012 Inpatient Daily Group Note Group: CBT Attendance: Present Behavior: Relevant, Insightful and Attentive Therapeutic Work Observed: Moderate Mood: Somewhat anxious Notes: Pt was attentive and engaged in discussion on CBT model, Cognitive distortions, and 5 steps of challenging distortions. Pt related to most of the distortions identified and the skills she has utilized and needs to continue utilizing when she gets home. DASIA LINDER 12/22/2012 * Nataly Hendrix RN - 12/20/2012 12:28 PM EDT Pt reports she feels ready for discharge. Rates her depression as 2, anxiety 4, and denies SI. Relapse plan completed. Glad to be back on her Remeron. Attending all groups. Affect full. * Michael Wheatley MD - 12/20/2012 11:57 AM EDT Psychiatry Inpatient - Progress Note ID: Aziza Tamez is a 52 y.o. female admitted on 12/17/2012 for severe depression with active suicidal ideation. Pertinent medical issues being addressed: none Interval History: Quality: I'm feeling much better and ready to go home Severity: Depression 2/10, anxiety 4/10, Timing: Mood is much better today Assoc. signs & sxs: Depressed mood, anhedonia, difficulty sleeping without assistance of temazepam. No Suicidal ideation Modifying factors: Sleep: Sleep helpful for mood. Temazepam and Mirtazepine together helpful for sleep if taken together Effect of medications: Finds combination of mirtazepine and sertraline helpful for depression Effect of groups: finds groups helpful, is attending and participating Context: Has arranged outpatient therapy with Noy Casillas, but cannot start soon as therapist is out of townfor 2 weeks Review of Systems: CONST No fever. No fatigue CV RESP No shortness of breath GI No nausea, vomiting, or diarrhea. +constipation. NEURO No headache. Extent of History Determination: Ceferino descriptors, reviewed systems, and level of history with x. HPI Descriptors 1-3 1-3 x 4 + Reviewed Systems 0 1 x 2-9 Level of Hx PF EPF x D Physical Exam: Patient Vitals for the past 24 hrs: BP Temp Temp src Pulse Resp 12/20/12 0747 99/68 mmHg 37.1 ??C (98.8 ??F) Oral 81 14 Musculoskeletal exam: No atrophy or abnormal movements appreciated. Strength 5/5 throughout Gait normal, no ataxia. Station within normal limits Mental Status Exam: Appearance: Very thin, woman, casually dressed, well groomed, appears much brighter today Behavior: no psychomotor agitation or slowing, cooperative, calm, pleasant Speech: normal rate and volume, normal articulation Language: normal, fluent Togolese Mood: much better Mild depression and mild to moderate anxiety Affect: Full affect, mood congruent, appears euthymic Thought Process: concrete and within normal limits Associations: tight, normal Thought Content: normal., no delusions or paranoid ideas, no suicidal ideation and no homicidal ideation Perception: no audio, visual, or tactile hallucinations. Orientation: person, place, time/date and situation Attention/Concentration: intact during interview Cognition: grossly intact Memory: remote and recent memory intact Fund of Knowledge: appropriate to age and education Insight:good Judgment: good Extent of Exam Determination: Ceferino completed bullets and level of exam with x. Bullets Completed 1-5 6-8 x 9+ Level of Exam PF EPF x D Scheduled Meds: ??? sertraline 150 mg Oral Daily ??? mirtazapine 30 mg Oral Nightly PRN Meds: LORazepam, temazepam, ibuprofen, docusate sodium Labs (over the last 24hr): No results found for this or any previous visit (from the past 24 hour(s)). Assessment: Aziza Tamez is a 52 y.o. female with MDD and anxiety, who [facility] severe depression and active suicidal ideation (plan, intent, preparations), related to a change in her antidepressant medication regimen and the anniversary of her sister's . Her mood has improved greatly since admission with resolution of her suicidal ideation. Plan is to continue the Zoloft at 150mg, resume mirtazepine at 30mg, continue temazepam at the decreased dose of 30mg (sleeping okay), and ibuprofen. Once she is more stable, can wean Zoloft down to 100mg as an outpatient if clinically indicated. Status of overall condition: Markedly Improved Reasons for continued hospitalization: Ready for discharge Primary Diagnosis: Major Depressive Disorder, recurrent, severe without psychotic features Plan: Activity: escort to groups Diet: regular Medications: - Mirtazepine 30mg QHS - Sertraline 150mg QDay - Temazepam 30mg QHS Safety Risk Management: Low risk. Much less depressed, no longer suicidal. Disposition: Ready for discharge to home. Follow up: Current Psychiatrist: Dr. Alon Davis MD ([place]) October 21 at 12:30pm Patient Instruction/Education Provided: Patient provided verbal instructions regarding treatment plans. I have reviewed and agree with the multidisciplinary treatment plan. MICHAEL WHEATLEY MD 12/20/2012 Coding Determination Complexity of MDM Determination: Ceferino [...] Low x Multiple x Moderate x Moderate Moderate Extensive Extensive High High Initial Inpatient Day Service Code Determination: Ceferino level of Hx, Exam, MDM & ANDERSON/CPT Code with ? X? . All 3 gresham components in the row must be met to qualify. HISTORY EXAM MDM ANDERSON / CPT CODE Detailed Detailed Straightforward/Low 3000 / 22144 Comprehensive Comprehensive x Moderate 3010 / 45118 x Comprehensive x Comprehensive High x 3020 / 82066 * Holly Connolly MD - 12/20/2012 10:37 AM EDT PSYCHIATRY TEACHING PHYSICIAN INVOLVEMENT Location: [facility] Psychiatry Attending Physician: JAZMYN Connolly MD Resident name: Michael Wheatley MD I saw and evaluated the patient [...] 1. D/c to home today 2. F/u with outpt therapist and Dr. Davis 3. Educate about [facility] as an option if needed as therapist away for [address] Davis can refer ifneeded Primary Diagnosis: 296.33 * Grecia Foreman RN - 12/20/2012 7:59 AM EDT Multidisciplinary Treatment Team Note Date: 12/20/2012 Attending MD: Dr. Holly Connolly Resident: Dr. Michael Wheatley Patient Cath Lab Tech: Elin Foreman RN- Oliving Machine Operator: DASIA Staton RN: Ashlee Hendrix RN Group Therapist: DASIA Enriquez Progress: Patient was seen and evaluated by the treatment team. Slept 8 hrs last night. Rates depression 2/10 and anxiety 4/10. Denies S/I and is maine for safety. Attending groups and engaged in AIYANA programming. Reporting feeling better and ready to discharge today. She has completed her Wellness Plan. She has follow up appt with her psychiatrist tomorrow. Plan: Discharge today to home to follow up with Dr Alon Davis. * Leigh Ann Haywood RN - 12/19/2012 6:10 PM EDT Nursing Progress Note: Patient states she is doing much better this evening then she was this morning. She reports she was pretty anxious this morning, but that the Ativan they gave her was really helpful. She denies thoughts of harming herself and is maine for safety. She is planning on discharging home tomorrow and reports she feels ready to go. She does express some anxiety about returning to work, but states that she has the rest of the week off from to work to settle in at home which will be helpful. She is working on her wellness plan. She was visible out in the milieu this evening and was quietly social with a few peers. She attended groups. She has a full range of affect andwas easily engaged. Will continue to monitor. * Elizabeth Smith MHT - 12/19/2012 2:12 PM EDT Inpatient Daily Group Note Group: Relaxation Group Attendance: Present Behavior: Quiet Therapeutic Work Observed: Moderate Mood: Calm Notes: Group reviewed the stress cycle and the Quieting Response. Pt practiced mindful breathing. Pt appeared distracted this morning. ALEXANDER ARMSTRONG 12/19/2012 Inpatient Daily Group Note Group: Goals Attendance: Late - was meeting with team Behavior: Relevant and Attentive Therapeutic Work Observed: Moderate Mood: Anxious Notes: Pt reviewed AIYANA program and module 2, received CUB, TME, and Mood Math worksheets. Pt identified goals for today as work on getting her anxiety from an 8 down to a 5, and work on suicide not being an option for her. SACHI PALMA, SENIOR CONTROL SYSTEMS ENGINEER Inpatient Daily Group Note Group: Interpersonal Issues Attendance: Present Behavior: Helpful to Others, Relevant and Attentive Therapeutic Work Observed: Moderate Mood: Calm Notes: Pt was attentive and engaged in discussion on types of boundaries, difficulties with boundaries, and utilizing the [place] of Support worksheet to look at and plan adjustment of current boundaries. Pt discussed having to repeatedly set limits with a family member and getting to the point where she had to completely distance herself because they would not respect her boundaries and the situation was too stressful for Pt at the time. SACHI PALMA, SENIOR CONTROL SYSTEMS ENGINEER 12/19/2012 Inpatient Daily Group Note Group: Group Walk Attendance: Present Behavior: Conversational Therapeutic Work Observed: Moderate Mood: Calm Notes: Pt joined group for an outside walk. She was social with peer while walking. ALEXANDER ARMSTRONG 12/19/2012 Inpatient Daily Group Note Group: Wellness Recovery Planning Group Attendance: Present Behavior: Relevant Therapeutic Work Observed: Moderate Mood: Calm Notes: The group reviewed the Wellness Recovery Plan and Talked about how to make it a usable tool once home. Pt talked about her own process of recovery and how she uses her plan. Sharing helpful information. ALEXANDER ARMSTRONG 12/20/2012 * Holly Connolly MD - 12/19/2012 9:39 AM EDT Psychiatry Inpatient - Progress Note ID: Aziza Tamez is a 52 y.o. female admitted on 12/17/2012 for severe depression with active suicidal ideation. Pertinent medical issues being addressed: none Interval History: Quality: Tense, circumstantial Severity: Depression 6-7/10, anxiety 8-9/10, Feeling guilty about missing work Timing: More anxious since call to work this am, feeling guilty Assoc. signs & sxs: Sleep: 8 hrs, restless and does not feel rested today, many dreams ; Appetite: better today ; Energy: anxious energy Modifying factors: Group therapy helpful in addressing stressors Context: Notes increased depression past few months related to mounting social stressors, includingpassive SI that she could dismiss readily Review of Systems: CONST No fever. No fatigue CV RESP No shortness of breath GI No nausea, vomiting, or diarrhea. Constipation resolved with prune juice NEURO No headache. Extent of History Determination: Ceferino descriptors, reviewed systems, and level of history with x. HPI Descriptors 1-3 1-3 x 4 + Reviewed Systems 0 1 x 2-9 Level of Hx PF EPF x D Physical Exam: Vitals (24hr Range): Temp: [36.6 ??C (97.9 ??F)] Resp: [16] Heart Rate: [52] BP: (103)/(62) SpO2: -- Musculoskeletal exam: No atrophy or abnormal movements appreciated. Strength 5/5 throughout Gait WNL Mental Status Exam: Appearance: Casually dressed, well groomed Behavior: no psychomotor agitation or slowing, cooperative with exam Speech: normal rate and volume, normal articulation Language: normal, fluent Togolese Mood: Depressed, anxious Affect: Tense Thought Process: concrete and within normal limits Associations: tight, normal Thought Content: normal., no delusions or paranoid ideas, feeling overwhelmed with intermittant suicidal thots, no plan 4/10 suicidal ideation I keep it as an option for myself, which isn't good, no homicidal ideation Perception: no audio, visual, or tactile hallucinations. Orientation: person, place, time/date and situation Attention/Concentration: intact during interview Cognition: grossly intact Memory: remote and recent memory intact Fund of Knowledge: appropriate to age and education Insight: fair Judgment: Limited Extent of Exam Determination: Ceferino completed bullets and level of exam with x. Bullets Completed 1-5 6-8 x 9+ Level of Exam PF EPF x D Scheduled Meds: ??? sertraline 150 mg Oral Daily ??? mirtazapine 30 mg Oral Nightly PRN Meds: temazepam, ibuprofen, docusate sodium Labs (over the last 24hr): No results found for this or any previous visit (from the past 24 hour(s)). Assessment: Aziza Tamez is a 52 y.o. female with MDD and anxiety, who presented [facility] severe depression and active suicidal ideation (plan, intent, preparations), related to a change in her antidepressant medication regimen and the anniversary of her sister's . Her mood has improved moderately over the weekend with resolution of her suicidal ideation. Plan is to continue mirtazepine at 30mg and consider further dose titration, continue temazepam at the decreased dose of 30mg (sleeping okay), and ibuprofen. She also has an appointment with her outpatient psychiatrist onT; so we are aiming for discharge by Tuesday if possible. Status of overall condition: Moderately Improved Reasons for continued hospitalization: Stabilization. Monitoring for safety. Medication optimization. Primary Diagnosis: Major Depressive Disorder, recurrent, severe without psychotic features Plan: Activity: escort to groups Diet: regular Medications: Continue same for today, but consider inc in mirtazapine and decrease in sertraline ifneeded - Mirtazepine 30mg QHS - Sertraline 150mg QDay - Temazepam 30mg QHS Labs/Consults/Diagnostic Procedures ordered: none Safety Risk Management: Moderate risk with sudden resolution of suicidal ideation, but still quite depressed Disposition: After stabilization, patient expected to return home Follow up: Current Psychiatrist: Dr. Alon Davis MD ([place]) Current Therapist: Adriano Alvarado ([facility], doesn't see often) PCP: MALLORY HATCH MD Patient Instruction/Education Provided: Patient provided verbal instructions regarding treatment plans. I have reviewed and agree with the multidisciplinary treatment plan. HOLLY CONNOLLY MD 12/19/2012 Coding Determination Complexity of MDM Determination: Ceferino [...] Moderate x Moderate Extensive Extensive High High Initial Inpatient Day Service Code Determination: Ceferino level of Hx, Exam, MDM & ANDERSON/CPT Code with ? X? . All 3 gresham components in the row must be met to qualify. HISTORY EXAM MDM ANDERSON / CPT CODE Detailed Detailed Straightforward/Low 3000 / 29817 Comprehensive Comprehensive x Moderate 3010 / 23873 x Comprehensive x Comprehensive High x 3020 / 87093 * Grecia Foreman RN - 12/19/2012 8:13 AM EDT Multidisciplinary Treatment Team Note Date: 12/19/2012 Attending MD: Dr. Holly Connolly Resident: Dr. Megha Nunez Patient Cath Lab Tech: Elin Foreman RN- Oliving Machine Operator: DASIA Staton RN: Cecilia Ramos RN Group Therapist: DASIA Enriquez Progress: Patient was seen and evaluated by the treatment team. Slept 8 hrs last night and did not sleep well. Rates depression 7/10 and anxiety 9/10 today. Reports that she feels overhwhelmed and continue to have S/I and is maine for safety. She reports increased anxiety is about guilt around missing work. Attending groups and engaged in AIYANA programming. Plan: Monitor safety and severity of symptoms. Monitor response to medications and for side effects. Groups for education, skill building and support. Discharge planning with coordination of follow up care with Dr Alon Davis. * Michael Wheatley MD - 12/18/2012 3:26 PM EDT Psychiatry Inpatient - Progress Note ID: Aziza Tamez is a 52 y.o. female admitted on 12/17/2012 for severe depression with active suicidal ideation. Pertinent medical issues being addressed: none Interval History: Quality: I'm doing better today Severity: Depression 7/10, anxiety 5-6/10 Timing: Mood is much better today Assoc. signs & sxs: Depressed mood, anhedonia, decreased appetite, impaired concentration, isolating, ruminating thoughts and worry about the furture, difficulty sleeping without assistance of temazepam. Feelings of hopelessness and suicidal ideation has resolved. Modifying factors: Sleep: Sleep helpful for mood. Temazepam helpful for sleep but Mirtazepine not. Effect of medications: Finds combination of mirtazepine and sertraline helpful for depression Effect of groups: finds groups helpful, Context: Is trying to stay in the moment and not worry about the future. Is feeling more hopeful today and realizing she needed to be here and needs more help as an outpatient. 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 Review of Systems: CONST No fever. No fatigue CV RESP No shortness of breath GI No nausea, vomiting, or diarrhea. +constipation. NEURO No headache. Extent of History Determination: Ceferino descriptors, reviewed systems, and level of history with x. HPI Descriptors 1-3 1-3 x 4 + Reviewed Systems 0 1 x 2-9 Level of Hx PF EPF x D Physical Exam: Vitals (24hr Range): Temp: [36.9 ??C (98.4 ??F)] Resp: [16] Heart Rate: [59] BP: (116)/(62) SpO2: [97 %] Musculoskeletal exam: No atrophy or abnormal movements appreciated. Strength 5/5 throughout Gait not assessed as patient light headed and somnolent from Ativan taken before arrival. Station within normal limits Mental Status Exam: Appearance: Very thin, woman, casually dressed, well groomed, appears much brighter today Behavior: no psychomotor agitation or slowing, cooperative with exam, sleepy with frequent eye closing Speech: normal rate and volume, normal articulation Language: normal, fluent Togolese Mood: not suicidal today Depressed, anxious Affect: Full affect, mood congruent, appears depressed Thought Process: concrete and within normal limits Associations: tight, normal Thought Content: normal., no delusions or paranoid ideas, no suicidal ideation and no homicidal ideation Perception: no audio, visual, or tactile hallucinations. Orientation: person, place, time/date and situation Attention/Concentration: intact during interview Cognition: grossly intact Memory: remote and recent memory intact Fund of Knowledge: appropriate to age and education Insight: fair Judgment: Limited - thought she should be discharged despite her suicidality Extent of Exam Determination: Ceferino completed bullets and level of exam with x. Bullets Completed 1-5 6-8 x 9+ Level of Exam PF EPF x D Scheduled Meds: ??? sertraline 150 mg Oral Daily ??? mirtazapine 30 mg Oral Nightly ??? DISCONTD: mirtazapine 30 mg Oral Nightly PRN Meds: temazepam, ibuprofen, docusate sodium Labs (over the last 24hr): No results found for this or any previous visit (from the past 24 hour(s)). Assessment: Aziza Tamez is a 52 y.o. female with MDD and anxiety, who presented [facility] severe depression and active suicidal ideation (plan, intent, preparations), related to a change in her antidepressant medication regimen and the anniversary of her sister's . Her mood has improved moderately over the weekend with resolution of her suicidal ideation. Plan is to continue the Zoloft at 150mg, resume mirtazepine at 30mg, continue temazepam at the decreased dose of 30mg (sleeping okay), and ibuprofen. No plan to resume ativan or vicodin while inpatient. Has a therapist already, but is located 1 hour from her, so she would like to set up therapy in her home town with a erapist. She also has an appointment with her outpatient psychiatrist on ; she hopes she will be ready to discharge by Tuesday. Status of overall condition: Moderately Improved Reasons for continued hospitalization: Stabilization. Monitoring for safety. Medication optimization. Primary Diagnosis: Major Depressive Disorder, recurrent, severe without psychotic features Plan: Activity: escort to groups Diet: regular Medications: - Mirtazepine 30mg QHS - Sertraline 150mg QDay - Temazepam 30mg QHS Labs/Consults/Diagnostic Procedures ordered: none Safety Risk Management: Moderate risk with sudden resolution of suicidal ideation, but still quite depressed Disposition: After stabilization, patient expected to return home Follow up: Current Psychiatrist: Dr. Alon Davis MD ([place]) Current Therapist: Adriano Alvarado ([facility], doesn't see often) PCP: MALLORY HATCH MD Patient Instruction/Education Provided: Patient provided verbal instructions regarding treatment plans. I have reviewed and agree with the multidisciplinary treatment plan. MICHAEL WHEATLEY MD 12/18/2012 Coding Determination Complexity of MDM Determination: Ceferino [...] Low x Multiple x Moderate x Moderate Moderate Extensive Extensive High High Initial Inpatient Day Service Code Determination: Ceferino level of Hx, Exam, MDM & ANDERSON/CPT Code with ? X? . All 3 gresham components in the row must be met to qualify. HISTORY EXAM MDM ANDERSON / CPT CODE Detailed Detailed Straightforward/Low 3000 / 81486 Comprehensive Comprehensive x Moderate 3010 / 68752 x Comprehensive x Comprehensive High x 3020 / 64002 * Sachi Palma MSW - 12/18/2012 11:38 AM EDT Inpatient Daily Group Note Group: Goals Attendance: Present Behavior: Relevant and Attentive Therapeutic Work Observed: Moderate Mood: Calm Notes: Pt reviewed AIYANA program and module 1, was given CUB and TME worksheets. Pt identified goals for today as stay focused in the day and try not to project too much into the future, and attend groups. DASIA LINDER 12/18/2012 Inpatient Daily Group Note Group: Open Discussion Group Attendance: Present Behavior: Quiet Therapeutic Work Observed: Moderate Mood: Calm Notes: The group primarily discussed preparing for discharge. Pt stated that she is trying to stay focused in the moment. She was responsive to a peer in supporting her use of the [facility] program. ALEXANDER ARMSTRONG 12/18/2012 Inpatient Daily Group Note Group: Group Walk Attendance: Present Behavior: Conversational Therapeutic Work Observed: Moderate Mood: Calm Notes: Pt joined group for an outside walk. She engaged in conversation with a peer throughout the walk. ALEXANDER ARMSTRONG 12/18/2012 Inpatient Daily Group Note Group: Coping Skills Attendance: Present Behavior: Relevant Therapeutic Work Observed: Moderate Mood: Calm Notes: The group discussed the DBT skill Radical Acceptance. Pt talked about having to come to a place of acceptance that she has depression and needs to take medication to manage it. ALEXANDER ARMSTRONG 12/19/2012 Inpatient Daily Group Note Group: CBT Attendance: Present Behavior: Helpful to Others, Expressive, Relevant and Attentive Therapeutic Work Observed: Moderate Mood: Calm Notes: Pt was attentive and engaged in discussion on CBT model, 3 legs of anxiety, and elements of a thought. Pt discussed her experience in overcoming her anxiety and the skills she needs to employ daily to maintain her health including keeping a schedule, good diet, regular exercise, therapy, and relaxation skills. DASIA LINDER 12/20/2012 * Judit Gunderson MSW - 12/18/2012 10:54 AM EDT Psychosocial Assessment Update: O: Patient is a 52 year old MWF, known to [facility] (last psychiatry discharge on 07/05/12), who represents to address her worsening suicidal ideation (with intent and plan), ongoing depression and overall inability to cope/function safely in her community. Please refer to admit note for details. For comprehensive family history please refer to ED note dated 06/30/12. History remains unchanged. is Supportive as are co-workers. A: Pleasant, engageable female, appearing in no distress throughout interview process. Patient identifies recent medication changes as primary triggers to increasing suicidal ideation. Patient is agreeable to restarting previous regime and is hoping for discharge on 12/21/12. Patient acknowledges ongoing suicidal thoughts/feelings but denies any current intent or plan. P: Will follow with team, assist as needed/requested. * Holly Connolly MD - 12/18/2012 10:19 AM EDT PSYCHIATRY TEACHING PHYSICIAN INVOLVEMENT Location: Inpatient Psychiatry Attending Physician: JAZMYN Connolly MD Resident name: Michael Wheatley MD I saw and evaluated the patient with the above named resident/ See their note for details. I reviewed the patient's history during the visit and I agree with the details as written. My exam confirms the resident's findings. The assessment and plan were formulated in discussion with me and I agree with them as documented. Major issues addressed/discussed: 1. We agreed to continue mirtazapine at 30 mg QHS - this appears to be a critical antidepressant medication for her stability. We agreed to continue sertraline at 150 mg QHS for now as she is improving. 2. She is sleeping well despite lower dose of temazepam at 30 mg nightly, will continue 3. Group therapy for coping skills training Primary Diagnosis: 296.33 * Noy Go RN - 12/18/2012 9:46 AM EDT Slept 8 hours last night, feels rested this morning. Reports feeling better today,, depression 7/10, anxiety 5-6/10. Denies S/H/I, Feels good to not be suicidal. Wants to focus on how to change thinking about being embarrassed to go back to work.Eating well; drank prune juice as laxative ( no BMsince prior to admit) * Felipa Jennings RN - 12/17/2012 9:57 PM EDT Psychiatric Nursing Progress Note Fall Risk Completed? (required every 12 hours) yes Assessment (safety, self care, interpersonal issues,psychiatric symptoms, family/support, treatment/med compliance,medical/treatment issues) Pt reluctantly contracts for safety, stayed in her room and out in the lobby for short period of socialization Interventions (med administration, groups, level of safety, teaching) Compliant with medications, rather guarded with personal information but pleasant and polite on contact. Attended some groups Evaluation (patient response/plan): for treatment team to evaluate for treatment plan. * Sachi Palma MSW - 12/17/2012 3:14 PM EDT Inpatient Daily Group Note Group: Goals Attendance: Present Behavior: Quiet and Attentive Therapeutic Work Observed: Moderate Mood: Depressed Notes: Pt reviewed AIYANA program and received CUB and TME worksheets. Pt identified goals for today as shower and get dressed. DASIA LINDER 12/17/2012 documented in this encounter H&P Notes * Ji Swift MD - 12/17/2012 1:27 AM EDT Psychiatry - Admission Note ID Name: Aziza SpainLucaHumberto Age: 52 y.o. 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 Alon Davis MD ([facility]) Current Therapist: Adriano Alvarado ([facility], doesn't see often) PCP: MALLORY HATCH MD Chief Complaint: 52 y.o. Female presents to [facility] with suicidal ideation with preparations and depression History of Present Illness: ( Tunde was also present) Mrs. Tamez is a 52 yo woman with MDD and anxiety, who presents to [facility] ED tonight due to worsening depression and egodystonic suicidal ideation with plan, preparations and intent but no attempt. She does have a history of suicide attempt by klonopin overdose in 2000. Mrs. Tamez states she was fairly stable and doing okay with her depression and anxiety until about 2-3 weeks ago when her psychiatrist decided to change her dual antidepressant therapy with mirtazepine 30mg QHS and zoloft 100mg. Over the next two weeks, she slowly weaned off the mirtazepine and increased her dose of zoloft to 125 and then to 150mg. She gradually noticed a worsening of her depressive symptoms and especially an increase in her suicidal ideation. She has had multiple plans over the last few weeks, which included shooting herself with a gun (she then had her remove all guns from the home), overdosing on the vicodin she takes for hip pain (she then gave the pills to her for safekeeping), and then she decided to overdose on a combination of pills. She went to the store and refi lled her ativan prescription (taken for chronic anxiety), bough Advil PM, Nyquil, Benadryl, and a bottle of wine. She then hid the pills and alcohol. She planned to kill herself tomorrow because today she had a family birthday republican to go to and she wanted to see all her family one last time. Tomorrow her would be busy and she would have the opportunity. Her plans were interrupted by the visit from a friend who noticed she was not herself at the republican and when the friend stated that shewould see her on Tuesday, Mrs. Tonia Paul replied maybe which worried the friend, given Mrs. Tamez's history. The friend visited, notified the and the patient's doctor of her plans, who recommended she be brought to the hospital. Also, November 22 was the anniversary of her sister's who from cancer. Mrs. Tonia Paul states she felt ready to go and was at peace with her plan, though she admits the suicidal thoughts are intrusive and wish they would stop. Rebecca admits that she could be safe at home if watched 14/03, but if she got the opportunity to carryout any of her plans, then she would probably try it. She also feels somewhat suspicious or paranoid that her friend, and doctor had some kind of conspiracy against her. She cant say specifically why she felt this way, but feels frustrated that she's in the hospital and would prefer to go home. She doesn't believe anyone is watching her, working against her, etc. She sites her , son, and large family as protective factors for not going through with her plan. 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 Depressive symptoms include dysphoric mood, anhedonia, decreased appetite, feelings of hopelessness, impaired concentration, and suicidal ideation with intent and plan. She denies guilt, difficulty sleep (uses Restoril to sleep) Psychiatric Review of Systems: Sustained Depressed Mood: positive Sustained Irritable Mood: Negative Sustained Elevated Mood: Negative Flashbacks or Nightmares: Negative Panic attacks: Positive - last was 2 years ago Chronic worry: positive Delusions or hallucinations: Negative Obsessions/Compulsions Positive - compulsively cleans when very anxious Thoughts of harming self or others: positive - SI with plans and intent Other Psychiatric History: Prior diagnoses: Anorexia, Major Depression, OCD, Generalized anxiety with panic attacks Past hospitalization and location: Anorexia, [facility] in [place] 1997 and [facility] in 1996. Depression, [facility] 06/2001,09/2001 (21 ECTs). Suicide attempt was immediately preceding 09/2001 admission. Most recent [facility] admit was 06/2012. Suicide attempts: One suicide attempt in 2001 by overdose on bottle of clonazepam then immediately called EMS. Past psychiatric medications (include dose, length of use, response, reason for stopping): Zoloft (worked), Citalopram (didn't work) Neurotin, Lamictal, Seroquel, Risperdal, and Zyprexa which she took to help with anger problems Substance Use History/Treatment: Alcohol - drinks 3-5 glasses per week. Has a history of drinking more when depressed. Non smoker. No drug use. Prior to Admission Medications: Sertraline 150mg Mirtazepine 15mg (just restarted yesterday) Temazepam - pt reports dose of 45mg Ativan 0.5mg-1mg BID PRN anxiety - doesn't take every day Ibuprofen 600mg PRN pain Vicodin 5/500mg - doesn't use daily, often only takes 1/2 a pill in a day Allergies: Allergies Allergen Reactions ??? Latex CIS - HIVES ??? Sulfa (Sulfonamide Antibiotics) CIS - Hives ??? Gloves, Latex Problem List: Patient Active Problem List Diagnoses Code ??? Mood disorder 296.90 ??? MDD (major depressive disorder), recurrent episode, severe 296.33 ??? Recur major depress, severe 296.33 ??? Suicidal ideations V62.84 ??? Generalized anxiety disorder 300.02 Past Medical/Surgical History: Past Medical History Diagnosis Date ??? Irritable bowel syndrome ??? Depression ??? Anxiety No past surgical history on file. Family Medical/Psychiatric History: (mental illness, substance use, suicide) Sister with depression, another sister with depression and heavy alcohol use. No one else in family has committed suicide or made attempts Social History: Grew up in foster care in [place], [place]. Has 10 siblings, but is only close to some of them. 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 18 years ago when of a heart attack. to current , Tunde, 13 years ago. Has one son from her previous , 28yo. Enjoys the outdoors, especially kayaking, hiking, biking, gardening and spending time with her large family. History of Abuse/Neglect: denies Legal History: none Pain Assessment: Recent pain severity: 0/10 (10=worst) Location of pain due to medical condition: Hips Controlled with use of: Ibuprofen, vicodin General: Denies fever, chills. No recent weight changes. Denies fatigue Eyes: Denies vision changes ENT: Denies congestion, sore throat, dental pain Cardiovascular: Denies chest pain/pressure or palpitations - has palpitations with anxiety attacks only Respiratory: Denies SOB, cough GI: Denies abd pain, , N/V/C/D - has chronic problems with constipation due to IBS : Denies dysuria Musculoskeletal: Denies arthralgias, myalgias at present, has chronic intermittent hip pain Endocrine: Denies heat intolerance, often feels cold Neuro: Denies numbness or tingling, weakness, headache, +light headedness Hem/Lymph: Denies new lumps or bumps Skin: Denies rash or concerning lesions, no pruritis Extent of History Determination: Ceferino completed bullets and level of exam with x. HPI Descriptors 4+ x 4+ Reviewed Systems 2-9 x 10 Past, Fam, Soc Hx 1 x 3 Level of HX D x C Physical Exam: Patient Vitals for the past 24 hrs: BP Temp Temp src Pulse Resp SpO2 Height Weight 12/17/12 0100 114/72 mmHg 36.6 ??C (97.9 ??F) Oral 49 16 100 % 170.2 cm (5' 7) 53 kg (116 lb 13.5 oz) Constitutional: somnolent, oriented, conversant, no respiratory distress, very thin Eyes: Non-icteric, not injected, PERRL, ENT: MM moist, no oral lesions, neck supple with full ROM Cardiovascular: RRR, no M/G/R, Respiratory: CTA bilaterally. No wheeze, cough or increased WOB. GI: Soft, NT, ND, no masses appreciated. Skin: No rash or lesions noted, warm, dry Extremities: No peripheral edema Musculoskeletal System: No atrophy or abnormal movements appreciated. Strength 5/5 throughout Gait not assessed as patient light headed and somnolent from Ativan taken before arrival. Station within normal limits Mental Status Exam: Appearance: Very thin, woman, wearing a hospital gown, sitting reclined on ED bed, at bedise ?? Behavior: no psychomotor agitation or slowing, cooperative with exam, sleepy with frequent eye closing Speech: normal rate and volume, normal articulation Language: normal, fluent Togolese Mood: very depressed Affect: Constricted, mood congruent Thought Process: concrete and within normal limits Associations: tight, normal Thought Content: normal., no delusions or paranoid ideas, + active suicidal ideation (+intent, planand preparations) and no homicidal ideation Perception: no audio, visual, or tactile hallucinations. Orientation: person, place, time/date and situation Attention/Concentration: intact during interview ?? Cognition: grossly intact Memory: remote and recent memory intact Fund of Knowledge: appropriate to age and education Insight: fair ?? Judgment: Limited - thought she should be discharged despite her suicidality Extent of Exam Determination: Ceferino completed bullets and level of exam with x. Bullets Completed 9+ x All Psych & Constitutional + Musculoskeletal Level of Exam D x C Pertinent Labs/Studies: Recent Results (from the past 24 hour(s)) RAPID QUALITATIVE DRUG SCREEN, URINE ([facility]) Component Value Range NERISSA Marijuana Metabolites Scr None Detected None Detected NERISSA Phencyclidine Scr None Detected None Detected NERISSA Cocaine Metabolites Scr None Detected None Detected NERISSA Metamphetamines Scr None Detected None Detected NERISSA Opiates Scr None Detected None Detected NERISSA Amphetamines Scr None Detected None Detected NERISSA Benzodiazepines Scr Presumptive Pos (*) None Detected NERISSA Tricyclics Scr None Detected None Detected NERISSA Methadone Scr None Detected None Detected NERISSA Barbiturates Scr None Detected None Detected NERISSA Oxycodone Src None Detected None Detected NERISSA Propoxyphene Scr None Detected None Detected NERISSA Buprenorphine Scr None Detected None Detected URINALYSIS WITH MICROSCOPIC Component Value Range Glucose UA Negative Negative mg/dL Protein UA Negative Bilirubin UA Negative Negative mg/dL Urobilinogen UA Normal pH UA 6.0 5.0 - 8.0 Blood UA Negative Ketones UA Negative Nitrite UA Negative Leukocytes UA Trace (*) Neg Appearance UA Hazy (*) Clear Spec Scio UA 1.005 1.002 - 1.030 Color UA Yellow Yellow RBC UA <1 0 - 4 /HPF WBC UA 1 0 - 5 /HPF Bacteria UA Rare (*) None /HPF Squam Epith UA 4 <=4 /HPF Amorph Jaylin UA Rare (*) None /HPF Assessment/Formulation: Aziza Tamez is a 52 y.o. Female with MDD and anxiety, who presents to [facility] ED tonight after her friend, and doctor convinced her to be hospitalized due to worsening depression and egodystonic suicidal ideation with plan, preparations and intent but no attempt. Besides the recent change in her medication regimen, and the anniversary of her sister's , Mrs. Tonia Paul cannotsite any specific triggers for her suicidal ideation. She's been struggling with depression exacerbations and suicidal ideation since her first 's 18 years ago. Yesterday, her psychiatrist had begun to put her back on the previous dual antidepressant regimen that she was stable on 3 weeks ago, with re-initiation of Mirtazepine at 15mg QHS, and continuation her other medications Zoloft 150mg daily, Ativan 0.5mg BID PRN, Temazepam. Thus, will continue with these medications at this time. However, will decrease dose of temazepam to 30mg until can confirm that patient was actually taking 45mg. Also, will not continue the ativan at this time as may make patient more disinhibited andpatient denying any pain currently, so will not order Vicodin. Patient is at high risk of self harmgiven her past history of suicide attempt, preparations, being secretive about her preparations, intent, and plan with even the day picked out. She is able to site some protective factors, mostly family members, and has been notifying her of her plans and preparations. However, Mrs. Tamez was willing, but reluctant to be admitted. She indicated she wanted to be rapidly discharged,though endorses that her last hospitalization here was quite helpful. Goals of hospitalization willto be to titrate her back to an effective regimen, get her involved in the group therapies on the unit, and try to further ascertain any particular factors that led her to be quite so suicidal. For the next 24 hours, will place her on close observation with 30 minute checks and restrict her to the unit. Labs indicated ativan that patient took prior to arrival at the ED but no other substance use (except for the alcohol) and no evidence of a UTI. Safety Risk Assessment: high risk of self harm outside of the hospital, moderate risk on the unit DSM Multiaxial Diagnosis: Franklin I: Major depressive disorder, severe without psychotic features Franklin II: deferred Franklin III: IBS, hip pain Franklin IV: loss of loved ones Franklin V: GAF 25 Immediate Treatment Plan: Admit patient to psychiatry. Activity: Restrict to Unit (RTU) Diet: regular Labs: non pending. Medications: - Zoloft 150mg daily - Mirtazepine 15mg QHS - Temazepam 30mg QHS PRN insomnia - Ibuprofen 600mg Q6hrs PRN pain - Docusate 100mg BID PRN constipation Preventative/Prophylaxis: -Pneumovax and Influenza immunizations to be [...] psychiatric hospital admission is medically necessary for: Patient has failed less intense level of care. Treatment that could reasonably be expected to improve patient's condition. Precertification: Required: Coding Determination Complexity of MDM Determination: Ceferino [...] Straightforward Limited Limited Low Low x Multiple Moderate Moderate Moderate Extensive x Extensive x High x High Initial Inpatient Day Service Code Determination: Ceferino level of Hx, Exam, MDM & ANDERSON/CPT Code with ? X? . All 3 gresham components in the row must be met to qualify. HISTORY EXAM MDM ANDERSON / CPT CODE Detailed Detailed Straightforward/Low 3000 / 81581 Comprehensive Comprehensive Moderate 3010 / 44168 x Comprehensive x Comprehensive x High x 3020 / 47093 I have examined Ms Tamez on rounds, discussed the patient at length with Dr Wheatley and agree with her formulation and plan as documented. My MSE confirms hers. I discussed with Ms Tamez returning to the medication regimen that had stabilized her and with which she was doing well. SHe is amenable to this plan as she believes the taper of Remeron and increase in Zoloft timing was what initiated her decompensation. She feels safe here, is not especially glad that she was admitted, but acknowledges that she needs to be here or she would have killed herself. documented in this encounter Miscellaneous Notes * Miscellaneous - Provider, Scanning - 12/23/2012 11:18 AM EDT * Miscellaneous - Provider, Scanning - 12/23/2012 11:18 AM EDT * Miscellaneous - Provider, Scanning - 12/23/2012 11:18 AM EDT * Discharge Summary - Michael Wheatley MD - 12/20/2012 9:09 AM EDT Psychiatry Inpatient- Discharge Summary Patient Name: Aziza Tamez Patient Age: 52 y.o. Date of : 1960 Admission Date: 12/17/2012 Discharge Date: 12/20/2012 Attending Physician: Holly Connolly MD Resident Physician: Michael Wheatley MD Discharge Diagnoses (Hospital Problems) and Secondary Diagnoses (Chronic Problems): Active Hospital Problems Diagnoses ??? MDD (major depressive disorder), recurrent episode, severe ??? Generalized anxiety disorder Resolved Hospital Problems Diagnoses Date Resolved ??? Suicidal ideations 12/20/2012 Reason for Hospitalization: Safety, stabilization and medication management. Discharge Multi-axial Diagnosis: Franklin I: Major depressive disorder, severe without psychotic features, Generalized anxiety disorder Franklin II: deferred Franklin III: Irritable bowel syndrome, chronic hip pain Franklin IV: loss of loved ones, work stressors Franklin V: Admission GAF: 25 Discharge GAF: 65 History of Presentation: Mrs. Tamez is a 52 yo woman with MDD and anxiety, who presents to [facility] ED tonight due to worsening depression and egodystonic suicidal ideation with plan, preparations and intent but no attempt. She does have a history of suicide attempt by klonopin overdose in 2000. Mrs. Tamez states she was fairly stable and doing okay with her depression and anxiety until about 2-3 weeks ago when her psychiatrist decided to change her dual antidepressant therapy with mirtazepine 30mg QHS and zoloft 100mg. Over the next two weeks, she slowly weaned off the mirtazepine and increased her dose of zoloft to 125 and then to 150mg. She gradually noticed a worsening of her depressive symptoms and especially an increase in her suicidal ideation. She has had multiple plans over the last few weeks, which included shooting herself with a gun (she then had her remove all guns from the home), overdosing on the vicodin she takes for hip pain (she then gave the pills to her for safekeeping), and then she decided to overdose on a combination of pills. She went to the store and refi lled her ativan prescription (taken for chronic anxiety), bough Advil PM, Nyquil, Benadryl, and a bottle of wine. She then hid the pills and alcohol. She planned to kill herself tomorrow because today she had a family birthday republican to go to and she wanted to see all her family one last time. Tomorrow her would be busy and she would have the opportunity. Her plans were interrupted by the visit from a friend who noticed she was not herself at the republican and when the friend stated that shewould see her on Tuesday, Mrs. Tonia Paul replied maybe which worried the friend, given Mrs. Tamez's history. The friend visited, notified the and the patient's doctor of her plans, who recommended she be brought to the hospital. Also, November 22 was the anniversary of her sister's who from cancer. Mrs. Tonia Paul states she felt ready to go and was at peace with her plan, though she admits the suicidal thoughts are intrusive and wish they would stop. Rebecca admits that she could be safe at home if watched /, but if she got the opportunity to carryout any of her plans, then she would probably try it. She also feels somewhat suspicious or paranoid that her friend, and doctor had some kind of conspiracy against her. She cant say specifically why she felt this way, but feels frustrated that she's in the hospital and would prefer to go home. She doesn't believe anyone is watching her, working against her, etc. She sites her , son, and large family as protective factors for not going through with her plan. 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 Depressive symptoms include dysphoric mood, anhedonia, decreased appetite, feelings of hopelessness, impaired concentration, and suicidal ideation with intent and plan. She denies guilt, difficulty sleep if she uses the Temazepam 45mg nightly she is prescribed. Psychiatric Review of Systems: Sustained Depressed Mood: positive Sustained Irritable Mood: Negative Sustained Elevated Mood: Negative Flashbacks or Nightmares: Negative Panic attacks: Positive - last was 2 years ago Chronic worry: positive Delusions or hallucinations: Negative Obsessions/Compulsions Positive - compulsively cleans when very anxious Thoughts of harming self or others: positive - SI with plans and intent Hospital Course: Aziza Tamez was voluntarily admitted to inpatient psychiatry for safety, stabilization, and medication optimization. Labs obtained on admission were urinalysis, which was contaminated by squamous cells, but no other concerning findings and urine toxicology screen positive only for the benzo diazepines she is prescribed and took prior to coming to the ED. Mrs. Tamez improved markedly over her 4 day admission. Depression and anxiety decreased to mild to moderate levels and suicidal ideation resolved. She found the group therapy and structure ofthe unit quite helpful. She also acknowledged that she was working too much as had signed up for too many other commitments as well, causing her to feel very stressed and overwhelmed. 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 She was able to sleep well by taking the mirtazepine 30mg and temazepam 30mg together atnight, rather than staggering them at home and needing to take a higher dose of temazepam to sleep.Mrs. Tamez was amenable to the medication changes made, which were to continue the Zoloft at 150mg, resume mirtazepine at 30mg, continue temazepam at the decreased dose of 30mg, try to use Ativan 0.5mg only once per day if needed for severe anxiety, and ibuprofen as needed for pain. No vicodin for severe hip pain was needed while inpatient. Mrs. Tamez has a therapist already, but he is located 1 hour from her, so she has arranged to start therapy [facility]. She also has an appointment with her outpatient psychiatrist, Dr. Davis on the day after discharge. On the day of discharge, the patient denied thoughts of suicide, homicide, or violence. Follow up was scheduled as described below, and this information was provided to the patient in her After VisitSummary. Patient was also provided with emergency contact information. Important Lab Data: Urinalysis Ref. Range 12/16/2012 23:10 Color UA Latest Range: Yellow Yellow Appearance UA Latest Range: Clear Hazy (A) Spec Scio UA Latest Range: 1.002-1.030 1.005 pH UA Latest Range: 5.0-8.0 6.0 Protein UA Negative Glucose UA Latest Range: Negative mg/dL Negative Ketones UA No range found Negative Bilirubin UA Latest Range: Negative mg/dL Negative Urobilinogen UA Normal Blood UA Negative Leukocytes UA Latest Range: Neg Trace (A) Nitrite UA Negative WBC UA Latest Range: 0-5 /HPF 1 RBC UA Latest Range: 0-4 /HPF <1 Bacteria UA Latest Range: None /HPF Rare (A) Amorph Jaylin UA Latest Range: None /HPF Rare (A) Squam Epith UA Latest Range: <=4 /HPF 4 URINE TOXICOLOGY SCREEN 12/16/2012 23:10 NERISSA Phencyclidine Scr None Detected NERISSA Oxycodone Src None Detected NERISSA Propoxyphene Scr None Detected NERISSA Buprenorphine Scr None Detected NERISSA Amphetamines Scr None Detected NERISSA Metamphetamines Scr None Detected NERISSA Barbiturates Scr None Detected NERISSA Benzodiazepines Scr Presumptive Pos (A) NERISSA Cocaine Metabolites Scr None Detected NERISSA Methadone Scr None Detected NERISSA Opiates Scr None Detected NERISSA Marijuana Metabolites Scr None Detected NERISSA Tricyclics Scr None Detected Important Studies: None. Pending Studies and Lab Data: None ECT, Operations, or Other Major Procedures: None. Discharge Conditions/Prognosis: Satisfactory condition. Prognosis is dependent on patient's participation in ongoing treatment and compliance with medications. Discharge to: Home. Discharge Medications: Current Discharge Medication List UNREVIEWED medications Dose Details mirtazapine (REMERON) 15 mg tablet 15 mg For depression and sleep sertraline (ZOLOFT) 100 mg tablet 150 mg For depression temazepam (RESTORIL) 15 mg capsule 30 mg For anxiety and sleep LORazepam (ATIVAN) 1 mg tablet 1 mg For severe anxiety ibuprofen (ADVIL;MOTRIN) 600 mg tablet 600 mg For mild-moderate pain hydroCODone-acetaminophen (VICODIN) 5-500 mg per tablet 0.5 tablets For severe pain Updated Allergies/ADRs: Allergies Allergen Reactions ??? Latex CIS - HIVES ??? Sulfa (Sulfonamide Antibiotics) CIS - Hives ??? Gloves, Latex Follow-up Recommendations for Providers: - Mirtazepine titrated back to 30mg Nightly - Temazepam decreased to 30mg, which was sufficient if taken at the same time as mirtazepine, whichpatient was not doing at home. - Sertraline kept at dose of 150mg Daily, could be weaned back down to 100mg daily as an outpatientonce more stable - Ativan use minimized to try to get patient to engage in group therapy and using coping skills fordealing with stress and depression rather than benzodiazepines. Instructions Given to Patient at Discharge: Provider Instructions PATIENT DISCHARGE INSTRUCTIONS Discharge Disposition: Home Primary Care Physician: MALLORY HATCH MD [phone] Special Instructions Provided to Aziza Tamez: Call your doctor, your local mental health center, or your local emergency room if you develop worsening symptoms of depression, anxiety, thoughts of harming yourself, thoughts of harming others, or any other decline in your overall condition. [facility] Emergency Services: [facility] [phone] [facility] Emergency Services: [phone] [facility] Central Access Services: [phone] [facility] [place] Main Line: [phone] Activity level: no restrictions from psychiatry Diet: no restrictions from psychiatry Driving: do not drive if sedated by medications Medications have been reviewed with the patient and the patient understands the use and side effects of these medications as evidenced by discussions on interdisciplinary rounds. Follow up appointments (external or yet-to-be scheduled): Dr. Susan MD psychiatrist. Appointment at 12:30 October 21, 2012 in [place], [place] Therapy to be arranged with Noy Casillas by the patient per her preference. chr Signed: MICHAEL WHEATLEY MD 12/20/2012 * Med Student Progress Note - Lynda Warren E - 12/20/2012 8:21 AM EDT Inpatient Psychiatry Medical Student Progress Note ID: Aizza Tamez is a 52 y.o. female with history of MDD and anxiety who presented on 12/18/12 with increased depression and active SI with plan, temporally related to a change in her antidepressant medications and the anniversary of her sister's . Subjective: Pt states she feels good today. Depression is 2/10. She is looking forward to going home and feels safe and ready. No current SI. She states she feels good and motivated about having a plan to handle the sources of stress and anxiety in her life. She has made a list of her responsibilities and has decided on a few of them to pass along to someone else. 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 She states it takes everything out of me and she has nothing left when she gets home. She states she will not feel guilty if she does cut down on respon sibilities because multiple people have told her she takes on too much and she realizes that she needs to do what's best for herself. Anxiety is 4/10. 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 However, she states that if parts sales advisor is not an option, it's okay. She believes that with her experience in the field, she would be able to get another job. She is hopeful. She did ask for Ativan yesterday and took 0.5mg but has not felt she needed any since. She states groups have been helpful. She states she feels very different compared to over the weekend and does not want to get back to that point. Slept well over night - 8 hours. Appetite and energyare good. Denies HI. Denies physical complaints. Objective: Vitals: Last Value Range last 24 hrs Temperature Temp: 37.1 ??C (98.8 ??F) Temp: [37.1 ??C (98.8 ??F)] Heart Rate Heart Rate: 81 Heart Rate: [81] Blood Pressure BP: 99/68 mmHg BP: (99)/(68) Respiratory Resp: 14 Resp: [14] SpO2 SpO2: 97 % SpO2: -- Mental Status Exam: Appearance: 52-year-old white female, casually dressed, short curly hair, well- groomed. Smiling. Good eye contact. Behavior: No PMR or PMA noted. Not restless or fidgety. Cooperative. Speech: Normal rate, rhythm, volume, tone. No word finding difficulties. Language: Normal. Polite, non-profane. Mood: Good Affect: Full-range. Mood congruent. Thought Process: Linear, logical. Goal-directed. Associations: Intact. Thought Content: Hope. Passive SI. No HI. No paranoid, guilty, or grandiose delusions. No ideas of reference. No obsessions, compulsions, ruminations, or phobias. Perception: No auditory or visual hallucinations. Orientation: Grossly oriented to self, date, location, situation. Attention/Concentration: Attends well to conversation. Answers questions appropriately. Does not seem to be responding to internal stimuli. Cognition: No gross impairments noted in conversation. Memory: No deficits noted in recent or remote recall. Fund of Knowledge: Seems appropriate for age, education, and experience. Insight: Good. Judgment: Good. Labs: No results found for this or any previous visit (from the past 24 hour(s)). Medications: ??? sertraline 150 mg Oral Daily ??? mirtazapine 30 mg Oral Nightly PRN: LORazepam 0.5 mg Daily PRN temazepam 30 mg Nightly PRN ibuprofen 600 mg Q6H PRN docusate sodium 100 mg BID PRN Assessment: Aziza Tamez is a 52 y.o. year old female with history of MDD and anxiety who presented on 12/18/12 with increased depression and active SI with plan, temporally related to a change in her antidepressant medications and the anniversary of her sister's . Patient feels depression is improved back to baseline, with no current SI. She feels restarting mirtazapine has made the biggest difference in improving depression, and with improved depression, her anxiety has been helped by being able to formulate a plan for dealing with some of her stress. She is motivated not prevent future episodes of more severe symptoms with active SI. She recognizes that she would benefit fromCBT to help manage her stress and anxiety. She has already noticed decreased anxiety here from being able to talk through options for managing her stress - she feels this helped her to design a plan she will be able to follow. She was able to contact her PCP, who put her in touch with a therapist who agrees to see her (she is interested in this therapist because it is one of the [place] therapists [place] she does [place] know personally). Unfortunately, this therapist will be out of the country for the next couple weeks. Aziza recognizes she doesn't think clearly when she is depressed and can become paranoid (i.e. Would not talk to psychiatrist educational audiologist) - she therefore understands the importance ofseeking help as soon as she starts to feel things are not going well. She has formed the plan that if things are not going well, she will talk with her psychiatrist, , PCP, or change director. She is confident in that plan and feels safe. We discussed [facility] as an option if she does feel she needs moresupport once she gets home, before her therapist returns. She is hopeful and confident that will not be necessary, but she agreed to keep it in mind as a back-up option. She did PPHP after her last hospitalization and states it was helpful and she learned a lot and would do it again if necessary. Plan: -Discharge to home today. Pt has visit with psychiatrist tomorrow. -Pt will work on reducing some of the sources of anxiety in her life. -To increase skills for coping with ongoing anxiety in life, pt has contacted a therapist who will see her in a few weeks. Support in the meantime will be her , PCP, psychiatrist, change director. -Continue mirtazapine 30mg qhs and sertraline 150mg daily Code Status: Full Code * Miscellaneous - Provider, Scanning - 12/19/2012 4:13 PM EDT * Med Student Progress Note - Lynda Warren - 12/19/2012 1:09 PM EDT Inpatient Psychiatry Medical Student Progress Note ID: Aziza Tamez is a 52 y.o. with history of MDD and anxiety who presented on 12/18/12 withincreased depression and active SI with plan, temporally related to a change in her antidepressant medications and the anniversary of her sister's . Subjective: Patient states she is back to her baseline level of depression and SI. She states depression is currently 6-7/10 and anxiety is 8-9/10. She denies active SI, but she has passive SI at thesame level as at baseline - she denies a current plan but it's always there as an option. She states that her constant level of depression and SI over the past few months was the motivation behind h er psychiatrist's decision to increase her sertraline (at which point he also decreased mirtazapine). She slept 8 hours overnight but states it was not restful. Appetite is improved. She endorses a lot of anxious energy. She states she feels very motivated to improve her symptoms because I don'twant to make any impulsive decisions. She states her depressive symptoms are exacerbated by stresses in her life - she states she takes on too much in an effort to help other people. 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 She states that these tasks have become more stressful and time consuming than she originally anticipated. She is not sure she can handle them anymore and has thoughts of relinquishing the tasks. She also has a lot of guilt about missing work. She worries that she is causing more workfor her coworkers, and she is also worried that she might lose her job. She states she does want tokeep her job, but due to the stresses of the job, she is also not sure whether she can continue to work the same hours. She feels she is always trying to help other people with various tasks that arenot her main job and it has become overwhelming. She has a headache but feels well physically otherwise. Constipation resolved with prune juice. Denies nausea, CP, SOB. Objective: Vitals: Last Value Range last 24 hrs Temperature Temp: 36.6 ??C (97.9 ??F) Temp: [36.6 ??C (97.9 ??F)] Heart Rate Heart Rate: 52 Heart Rate: [52] Blood Pressure BP: 103/62 mmHg BP: (103)/(62) Respiratory Resp: 16 Resp: [16] SpO2 SpO2: 97 % SpO2: -- Mental Status Exam: Musculoskeletal System: Ambulating with steady, stable gait and normal station. No tremors or abnormal movements noted. Mental Status Exam: ?? Appearance: 52-year-old white female, casually dressed, short curly hair, well-groomed. Good eyecontact. Behavior: No PMR or PMA noted. Not restless or fidgety. Cooperative ?? Speech: Normal rate, rhythm, volume, tone. No word finding difficulties. ?? Language: Normal. Polite, non-profane. ?? Mood: Anxious, depressed Affect: Full-range. Mood congruent. ?? Thought Process: Linear, logical. Goal-directed. ?? Associations: Intact. ?? Thought Content: Passive SI. No HI. No paranoid, guilty, or grandiose delusions. No ideas of reference. No obsessions, compulsions, ruminations, or phobias. Perception: No auditory or visual hallucinations. ?? Orientation: Grossly oriented to self, date, location, situation. ?? Attention/Concentration: Attends well to conversation. Answers questions appropriately. Does notseem to be responding to internal stimuli. Cognition: No gross impairments noted in conversation. ?? Memory: No deficits noted in recent or remote recall. ?? Fund of Knowledge: Seems appropriate for age, education, and experience. ?? Insight: Fair. Judgment: Fair. Labs: No results found for this or any previous visit (from the past 24 hour(s)). Medications: ??? sertraline 150 mg Oral Daily ??? mirtazapine 30 mg Oral Nightly PRN: LORazepam 0.5 mg Daily PRN temazepam 30 mg Nightly PRN ibuprofen 600 mg Q6H PRN docusate sodium 100 mg BID PRN Assessment: Aziza Tamez is a 52 y.o. with history of MDD and anxiety who presented on 12/18/12 with increased depression and active SI with plan, temporally related to a change in her antidepressant medications and the anniversary of her sister's . The patient notes significant mood imp rovement since restarting mirtazapine. She appears back to baseline, but does have significant depression and SI at baseline. Life stressors appear to be a significant aggravating factor. We discussed that the patient would likely benefit from CBT to work on coping skills and managing her guilt around her many commitments. She agreed it would be helpful to attend groups and work on those skills. Tenazepam had been decreased from 45mg qhs at home to 30mg qhs - as patient is sleeping well, we will continue the current dose. Plan: -Continue mirtazapine 30mg qhs -Continue tenazepam 30mg qhs -Continue sertraline 150mg daily -Encourage groups -Consider increasing mirtazapine and decreasing sertraline at discharge. Code Status: Full Code * Plan of Care - Griselda Ramos RN - 12/19/2012 12:31 PM EDT Problem: Major Depressive Disorder (Adult, Obstetric) Intervention: Promote Oral Nutrition Eating 100% meals. Intervention: Promote Coping Reported feeling jittery and unable to settle herself. notified. PRN ativan 0.5mg po given at 1300 with reported +effect per pt. Goal: Prevent/Manage Potential Problems Based on my scope of practice, I assessed for signs and symptoms of potential problems that could be present as documented. Outcome: Present (see interventions, notes) Rated her level of depression at 7 and anxiety at 9 (10 most). Stated she is thinking about her joband how to simplify things at home. Denied SI and contracts for safety. Attending groups. * Plan of Care - Griselda Ramos RN - 12/19/2012 8:12 AM EDT Problem: Trauma/Injury Risk (Adult, Obstetric) Intervention: Manage Environment VSS. Gait appears steady. Reported feeling dizzy, wobbly. Wearing at risk to fall bracelet. Precautionary measures to prevent falls discussed. * Plan of Care - Nataly Hendrix RN - 12/18/2012 4:35 PM EDT Problem: Major Depressive Disorder (Adult, Obstetric) Goal: Prevent/Manage Potential Problems Based on my scope of practice, I assessed for signs and symptoms of potential problems that could be present as documented. Outcome: Present (see interventions, notes) Pt reports she is feeling improved r/t the increased support in the hospital. Attending groups and activities. Happy/hopeful with medication changes. Rates depression as 6, anxiety 6, and denies SI. 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 Planning to call friend to apologizetonight. * Plan of Care - Noy Go RN - 12/17/2012 1:35 PM EDT Problem: Trauma/Injury Risk (Adult, Obstetric) Intervention: Manage Environment Steady gait, no C/O dizziness * Plan of Care - Noy Go RN - 12/17/2012 1:34 PM EDT Problem: Major Depressive Disorder (Adult, Obstetric) Intervention: Promote Coping Pt rated depression 10/10, tearful, reporting suicidal thoughts ( asked RN to remove silverware from room) Contracted for safety, states she will contact staff rather than follow through on any self harm thoughts. Agreed to eat meals in common area, and to not use silverware to harm self. documented in this encounter Plan of Treatment Not on file documented as of this encounter Visit Diagnoses Diagnosis MDD (major depressive disorder), recurrent episode, severe- Primary Major depressive disorder, recurrent episode, severe, without mention of psychotic behavior Insomnia Insomnia, unspecified MDD (major depressive disorder), recurrent episode, severe Major depressive disorder, recurrent episode, severe, without mention of psychotic behavior Suicidal ideations Suicidal ideation Suicidal ideations Suicidal ideation Generalized anxiety disorder documented in this encounter Administered Medications Inactive Administered Medications - up to 3 most recent administrations Medication Order MAR Action Action Date Dose Rate Site ibuprofen (ADVIL;MOTRIN) tablet 600 mg 600 mg, Oral, EVERY 6 HOURS PRN, Starting on 12/17/12 at 0125, Until Tue12/20/12 at 1636, Pain, Routine Given 12/19/2012 9:35 AM EDT 600 mg mirtazapine (REMERON) tablet 30 mg 30 mg, Oral, NIGHTLY, First dose (after last modification) on 12/17/12 at 2115, Until Discontinued, Routine Given 12/19/2012 9:00 PM EDT 30 mg Given 12/18/2012 9:06 PM EDT 30 mg Given 12/17/2012 9:15 PM EDT 30 mg sertraline (ZOLOFT) tablet 150 mg 150 mg, Oral, DAILY, First dose on 12/17/12 at 0900, Until Discontinued, Routine Given 12/20/2012 9:00 AM EDT 150 mg Given 12/19/2012 9:00 AM EDT 150 mg Given 12/18/2012 9:00 AM EDT 150 mg temazepam (RESTORIL) capsule 30 mg 30 mg, Oral, NIGHTLY PRN, Starting on 12/17/12 at 0125, Until Tue12/20/12 at 1636, Sleep, Routine Given 12/19/2012 9:04 PM EDT 30 mg Given 12/18/2012 9:07 PM EDT 30 mg Given 12/17/2012 9:46 PM EDT 30 mg documented in this encounter Active and Recently Administered Medications Times are shown in EDT. Scheduled Medication Order 12/18/2012 12/19/2012 12/20/2012 mirtazapine (REMERON) tablet 30 mg 30 mg, Oral, NIGHTLY, First dose (after last modification) on 12/17/12 at 2115, Until Discontinued, Routine 2106 (Given - Provider: Nataly Hendrix, RN) 2100 (Given - Provider: Leigh Ann Haywood, RN) sertraline (ZOLOFT) tablet 150 mg (CANCELED) 150 mg, Oral, DAILY, First dose on 12/17/12 at 0900, Until Discontinued, Routine 0900 (Given - Provider: Noy Go, MAHI) 0900 (Given - Provider: Griselda Ramos, MAHI) 0900 (Given - Provider: Nataly Hendrix RN) PRN Medication Order 12/18/2012 12/19/2012 12/20/2012 ibuprofen (ADVIL;MOTRIN) tablet 600 mg (CANCELED) 600 mg, Oral, EVERY 6 HOURS PRN, Starting on 12/17/12 at 0125, Until Tue12/20/12 at 1636, Pain, Routine 0935 (Given - Provider: Noy Tavera RN) temazepam (RESTORIL) capsule 30 mg (CANCELED) 30 mg, Oral, NIGHTLY PRN, Starting on 12/17/12 at 0125, Until Tue12/20/12 at 1636, Sleep, Routine 2107 (Given - Provider: Nataly Hendrix, MAHI) 2104 (Given - Provider: Leigh Ann Haywood, MAHI) documented in this encounter Care Teams Set Up Technician Relationship Specialty Start Date End Date Mallory Hatch MD [address] [place] [id number] PCP - General 07/14/10 09/29/15 documented as of this encounter
--- OUTSIDE RECORDS SUMMARY | 2024-04-12 11:21 | XMS_ITS | Encounter Summary ---
Author Organization [facility] [place] [address] Care Team Providers Care Basket Patcher Name Role Phone Liang Deluca MD Primary Care Provider [phone] Encounter Details Date Type Department Care Team (Latest Contact Info) Description 07/10/2012 Unscheduled Encounter [facility] [place] [address] Antonio Villaseñor MD [facility] [place] [address] Recur major depress, severe (Primary Dx) Social [...] Sign Reading Time Taken Comments Blood Pressure 130/72 07/10/2012 10:53 AM EST Pulse 56 07/10/2012 10:53 AM EST Temperature 36.6 ??C (97.9 ??F) 07/10/2012 10:[address] Respiratory Rate 16 07/10/2012 10:53 AM EST Oxygen Saturation - - Inhaled Oxygen Concentration - - Weight - - Height - - Body Mass Index - - documented in this encounter Progress Notes * Jes Ngo MHT - 07/10/2012 2:06 PM EST Group: Group Therapy - Greater than 45 minutes Topic: Emotion Regulation Skills Discussed the importance of having an emotional vocabulary to put words on feelings. Provided rational for recognizing emotions before they become intense as a way to regulate and manage them. Reviewed handouts on how to describe emotions as well as the functions of emotions. Attendance: Present Behavior: Quiet and Attentive Therapeutic Work Observed: Moderate Mood: Depressed Assessment: Pt was quiet though attentive. Did participate in the general discussion with direct prompting. Progress Towards Goal: See above. [facility] Daily Progress Note - Group Notes: Aziza Tamez 1960 [id number] Group: Group Therapy - Greater than 45 minutes Topic: Goals Group Attendance: Present Behavior: Expressive Therapeutic Work Observed: Moderate Mood: Calm Assessment: Patient said that she felt focused and calm during mindful breathing. Patient describedincreased anxiety about going home and being home over the weekend. Patient described having a real talk with her giving him permission to point out warning signs to her as needed. Patient said that she had contact with some people who don't understand her illness and the need for a temporary leave but patient said that she can work on accepting that they will have their reactions butshe still has her needs she needs to attend to and do what works for her. Patient has goal to process emotions from weekend. Progress Towards Goal: Patient show progress as indicated above. Kya Su [facility] Therapist [facility] Partial Hospitalization [facility] Daily Progress Note - Group Notes: Aziza Tamez 1960 [id number] Group: Group Therapy - Greater than 45 minutes Topic: Emotion Regulation Skills Attendance: Present Behavior: Quiet Therapeutic Work Observed: Minimal Mood: Anxious Assessment: Patient reviewed tool and practiced identifying and validating her feelings. Patient worked on identifying distorted thinking that gets in the way of coping with her feelings in a helpfulmanner. Patient did state that she has a belief that she is weak if she shares not doing well with others. Progress Towards Goal: Patient show some progress as indicated above. Kya Su [facility] Therapist [facility] Partial Hospitalization [facility] Daily Progress Note - Group Notes: Aziza Tamez 1960 [id number] Group: Group Therapy - Greater than 45 minutes Topic: Relapse Prevention Group Attendance: Present Behavior: Quiet Therapeutic Work Observed: Minimal Mood: Anxious Assessment: Patient stated feeling increased anxiety over the day. Patient was encouraged to attempt to apply the tools she learned today to her feelings. Patient said that she worries about going back to work and what to say. Patient joked about saying that she went on vacation but indicated feeling very anxious about it. Patient contracted to stay safe and has plan to stay with friend. Progress Towards Goal: Patient show some progress as indicated above. Patient remained quiet about her feelings, thoughts and needs. Kya Su [facility] Chief Mental Health Therapist Psychiatric Partial Hospitalization Program * Noy Tavera RN - 07/10/2012 10:56 AM EST [facility] Daily Progress Nurse Note: Aziza Tamez 1960 [id number] Safety: Patient denises risk Mood/Affect: Hopeful and Depressed - 3 Anxiety: Anxious - 5 Behavior: Calm Speech: WNL Cognition: Alert and Oriented Appearance: WNL Thought Content: WNL Sleep: 8 Hours Slept Activity: WNL Energy: WNL Perceptual Disturbance: WNL Eating: WNL Medications: Taking as prescribed documented in this encounter Plan of Treatment Not on file documented as of this encounter Visit Diagnoses Diagnosis Major depressive disorder, recurrent episode, severe, without mention of psychotic behavior- Primary documented in this encounter Care Teams Basket Patcher Relationship Specialty Start Date End Date Liang Deluca MD [address] [place] [id number] PCP - General 07/14/10 09/29/15 documented as of this encounter
--- OUTSIDE RECORDS SUMMARY | 2024-04-12 11:21 | XMS_ITS | Encounter Summary ---
Author Organization [facility] [place] [address] Care Team Providers Care Schedule Planning Manager Name Role Phone Liang Deluca MD Primary Care Provider [phone] Encounter Details Date Type Department Care Team (Latest Contact Info) Description 07/06/2012 8:50 AM EST - 07/21/2012 11:59 PM EST Hospital Encounter [facility] [place] [address] Antonio Villaseñor MD [facility] [place] [address] Discharge Disposition: Home Social History Tobacco Use [...] as of this encounter Miscellaneous Notes * Miscellaneous - Provider, Scanning - 07/27/2012 3:03 PM EST * Miscellaneous - Provider, Scanning - 07/06/2012 10:01 AM EST * Miscellaneous - Provider, Scanning - 07/06/2012 9:58 AM EST documented in this encounter Plan of Treatment Not on file documented as of this encounter Visit Diagnoses Not on filedocumented in this encounter Care Teams Schedule Planning Manager Relationship Specialty Start Date End Date Liang Deluca MD [address] [place] [address] [place] [address] PCP - General 07/14/10 09/29/15 documented as of this encounter
--- OUTSIDE RECORDS SUMMARY | 2024-04-12 11:21 | XMS_ITS | Encounter Summary ---
[place] [address] Care Team Providers Care Shuttle Veneering Supervisor Name Role Phone Liang Deluca MD Primary Care Provider [phone] Encounter Details Date Type Department Care Team (Latest Contact Info) Description 07/07/2012 Unscheduled Encounter [facility] [place] [address] Antonio Villaseñor MD [facility] [place] [address] Recur major depress, severe (Primary Dx) Social [...] Sign Reading Time Taken Comments Blood Pressure 125/85 07/07/2012 10:07 AM EST Pulse 56 07/07/2012 10:07 AM EST Temperature - - Respiratory Rate - - Oxygen Saturation - - Inhaled Oxygen Concentration - - Weight 55.3 kg (122 lb) 07/07/2012 10:07 AM EST Height 167.6 cm (5' 6) 07/07/2012 10:07 AM EST Body Mass Index 19.69 07/07/2012 10:07 AM EST documented in this encounter Patient Instructions * Patient Instructions* Ava Gonzalez RN - 07/07/2012 10:16 AM EST Please call Ava Gonzalez RN, [phone] if you have any question regarding [facility]. Special Instructions: Please seek help if you experience any of the following: Feelings of wanting to harm or kill yourself Feelings of wanting to harm or kill other people Hearing voices or things that are not there Seeing things that are not there Worsening of mood Worsening of anxiety Worsening of any psychiatric symptoms For Emergency Services: [phone] Emergency contacts for worsened symptoms or safety concerns Go to your nearest emergency room, or call 911 Call the [facility] crises line at [phone] . Helpful websites for additional information: National [place] of [employer] Health (NIMH) http://www.nimh.nih.gov/index.shtml [place] [employer] http://psych.org/MainMenu/Newsroom/LetsTalkFactsBrochuresFactSheets.aspx National [place] on Mental Illness http://www.jonathon.org/ documented in this encounter Progress Notes * Kya Su, MS - 07/07/2012 4:28 PM EST [facility] Daily Progress Note - Group Notes: Aziza Tamez 1960 [id number] Group: Group Therapy - Greater than 45 minutes Topic: Goals Group Attendance: Present Behavior: Expressive Therapeutic Work Observed: Moderate Mood: Calm Assessment: Patient said that she had a good evening with laughter, good nights sleep and a messagefrom God. Patient has goal to set up boundaries to prevent overwhelm and over-committing herself. Progress Towards Goal: Patient show progress as indicated above. Kya Su [facility] Chief Mental Health Therapist Psychiatric Partial Hospitalization Program [facility] Daily Progress Note - Group Notes: Aziza Tamez 1960 [id number] Group: Group Therapy - Greater than 45 minutes Topic: Stress/Distress Tolerance Skills Attendance: Present Behavior: Expressive Therapeutic Work Observed: Moderate Mood: Calm Assessment: Patient reviewed stress tool and recognized that she didn't see it when I was in it and wondered how to catch it earlier. 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 Patient discussed how to communicate her need for help with noticing warning signs to her family and friends. Patient said that her tendency is to take on too much and take herself water over my head. Progress Towards Goal: Patient show progress as indicated above. Kya Su [facility] Mental Health Therapist Psychiatric Partial Hospitalization Program [facility] Daily Progress Note - Group Notes: Aziza Tamez 1960 [id number] Group: Group Therapy - Greater than 45 minutes Topic: Stress/Distress Tolerance Skills Attendance: Present Behavior: Expressive Therapeutic Work Observed: Moderate Mood: Calm Assessment: Patient reviewed healthy and unhealthy ways to cope with stress. Patient recognized using anxious, internalizing and entrapment as unhealthy coping. Patient said that she tends to become obsessive and try to do it all perfectly, over-committing herself and getting overwhelmed. Patient reviewed healthy distress tolerance skills. Progress Towards Goal: Patient show progress as indicated above. Kya Su [facility] Therapist [facility] Hospitalization Program [facility] Daily Progress Note - Group Notes: Aziza Tamez 1960 [id number] Group: Group Therapy - Greater than 45 minutes Topic: Relapse Prevention Group Attendance: Present Behavior: Expressive Therapeutic Work Observed: Moderate Mood: Calm Assessment: Patient said that she gained insight today about what she needs to do to prevent overwhelm and relapse for herself. Patient said that she has tendency to want to do it all immediately when she gets home this weekend but will try to prevent that by using a schedule to stay moderate on her efforts. Patient contracted to stay safe. Progress Towards Goal: Patient show progress as indicated above. Kya Su [facility] Therapist [facility] Partial Hospitalization Program * Ava Gonzalez RN - 07/07/2012 10:14 AM EST [facility] Daily Progress Nurse Note: Aziza Tamez 1960 [id number] Safety: Patient denises risk Mood/Affect: Depressed - 3 Anxiety: Anxious - 3 Behavior: Calm Speech: WNL Cognition: Alert and Oriented Appearance: WNL Thought Content: WNL Sleep: 8 Hours Slept reports vivid dreams, but sleep improved Activity: WNL Energy: WNL Perceptual Disturbance: WNL Eating: WNL Medications: Taking as prescribed documented in this encounter Plan of Treatment Not on file documented as of this encounter Visit Diagnoses Diagnosis Major depressive disorder, recurrent episode, severe, without mention of psychotic behavior- Primary documented in this encounter Care Teams Shuttle Veneering Supervisor Relationship Specialty Start Date End Date Liang Deluca MD [address] [place] [id number] PCP - General 07/14/10 09/29/15 documented as of this encounter
--- OUTSIDE RECORDS SUMMARY | 2024-04-12 11:21 | XMS_ITS | Encounter Summary ---
Author Organization [facility] [place] [address] Care Team Providers Care Day Haul Youth Supervisor Name Role Phone Liang Deluca MD Primary Care Provider [phone] Reason for Visit * Reason Comments Suicidal Encounter Details Date Type Department Care Team (Late st Contact Info) Description 06/29/2012 12:15 PM EST - 06/29/2012 3:10 PM EST Emergency [place] [address] Maribell Kingsley MD [facility] [place] [address] Depression; Suicidal ideation Discharge Disposition: Admitted to [facility] Social History Tobacco Use Types Packs/Day Years [...] on file documented as of this encounter ED Notes * Maribell Kingsley MD - 06/29/2012 12:38 PM EST Chief Complaint Patient presents with ??? Suicidal HPI 51-year-old female presents with increasing depression for the past 6 weeks with persistent suicidal ideation for the past 3 days. She had a plan to overdose on multiple sedating medicines but handedthese over to her therapist. This morning she made preparations to hang herself from a wooden boardin her basement. He has a history of depression, PTSD and borderline personality with several psychi atric hospitalizations in the past. This required ECT in the past. She also had a serious overdose in the remote past. She had been doing well for the past 10 years until someone who she was very close to committed suicide 6 weeks ago. Since then she has slept only with the aid of Ativan 1 mg. She has had no appetite and has been trying to hydrate but feels weak and lightheaded. She has had some nausea and diarrhea. She drinks an occasional glass of wine but states she drank 3 glasses last weekend which is unusual for her. Denies drug or tobacco abuse. She denies any medical problems and yonas had a thorough cardiac workup 3 or 4 months ago. Allergies Allergen Reactions ??? Latex CIS - HIVES ??? Sulfa (Sulfonamide Antibiotics) CIS - Hives ??? Gloves, Latex Review of Systems Constitutional: Positive for activity change and appetite change. Negative for fever. HENT: Negative for sore throat. Eyes: Negative for visual disturbance. Respiratory: Negative for cough. Cardiovascular: Positive for leg swelling (occasional). Negative for chest pain. Gastrointestinal: Positive for nausea and diarrhea. Negative for vomiting and abdominal pain. Genitourinary: Negative for dysuria. Musculoskeletal: Negative for back pain. Neurological: Positive for light-headedness. Negative for headaches. Psychiatric/Behavioral: Positive for suicidal ideas, sleep disturbance, dysphoric mood and decreased concentration. Physical Exam Nursing note and vitals reviewed. Constitutional: She is oriented to person, place, and time. She appears well- developed and well-nourished. No distress. HENT: Head: Normocephalic. Mouth/Throat: Oropharynx is clear and moist. Mucous membranes slightly dry Eyes: Pupils are equal, round, and reactive to light. No scleral icterus. Neck: Neck supple. No thyromegaly present. Cardiovascular: Normal rate, regular rhythm and normal heart sounds. Exam reveals no gallop and no friction rub. No murmur heard. Pulmonary/Chest: Effort normal and breath sounds normal. No respiratory distress. She has no wheezes. She has no rales. Abdominal: Soft. No tenderness. Musculoskeletal: She exhibits no edema and no tenderness. Lymphadenopathy: She has no cervical adenopathy. Neurological: She is alert and oriented to person, place, and time. No cranial nerve deficit. Skin: Skin is warm and dry. Psychiatric: Her speech is normal and behavior is normal. Her affect is blunt. She expresses suicidal ideation. She expresses suicidal plans. Procedures MDM Number of Diagnoses or Management Options Depression: new, needed workup Suicidal ideation: new, needed workup Amount and/or Complexity of Data Reviewed Review and summarize past medical records: yes Discuss the patient with other providers: yes Risk of Complications, Morbidity, and/or Mortality Presenting problems: high Patient Progress Patient progress: stable ED Course: Patient is medically clear. I discussed her with psychiatry who saw her in consultation and will make arrangements for admission to their service. Maribell Kingsley MD 06/29/12 3162 documented in this encounter Miscellaneous Notes * Miscellaneous - Provider, Scanning - 06/29/2012 3:19 PM EST * ED Triage - Ijeoma Aleman RN - 06/29/2012 12:19 PM EST Pt presents with sister for SI for the past 3 days. Her plans include hanging herself or taking medications. Has a history of SI in past after she took a drug overdose. Pt reports she has not try to harm herself today. Contracts for safety while in the ED. documented in this encounter Plan of Treatment Not on file documented as of this encounter Procedures Procedure Name Priority Date/Time Associated Diagnosis Comments RAPID DRUG SCREEN W/O CONFIRMATION, URINE STAT 06/29/2012 2:43 PM EST URINALYSIS WITH REFLEX CULTURE STAT 06/29/2012 2:43 PM EST documented in this encounter Results * (ABNORMAL) Urinalysis with microscopic (06/29/2012 2:43 PM EST) Glucose, Urine Dipstick Negative Negative mg/dL CERNER MILLENNIUM Protein, Urine Dipstick Negative mg/dL CERNER MILLENNIUM Bilirubin, Urine Dipstick Negative Negative mg/dL CERNER MILLENNIUM Urobilinogen, Urine Dipstick Normal mg/dL CERNER MILLENNIUM pH, Urn (dipstick) 6.5 5.0 - 8.0 CERNER MILLENNIUM Blood, Urine Dipstick Negative mg/dL CERNER MILLENNIUM Ketone, Urine Dipstick Trace(A) Neg mg/dL CERNER MILLENNIUM Nitrite, Urine Dipstick Negative CERNER MILLENNIUM Leukocytes, Urine Dipstick Negative mcL CERNER MILLENNIUM Appearance, Urine Dipstick Clear Clear CERNER MILLENNIUM Specific [place] Urine Automated 1.006 1.002 - 1.030 CERNER MILLENNIUM Color, Urine Dipstick Light Yellow Yellow CERNER MILLENNIUM RBC, Urine <1 0 - 4 /HPF CERNER MILLENNIUM WBC, Urine Not Present 0 - 5 CERNER MILLENNIUM Squamous Epithelial Cells, Urine 2 <=4 /HPF CERNER MILLENNIUM Transitional Epithelial Cells, Urine <1 <=1 /HPF CERNER MILLENNIUM Urine specimen (specimen) 06/29/2012 2:43 PM EST 06/29/2012 4:48 PM EST Narrative Resulting Agency Comment Spec In Lab Maribell Kingsley MD URINE ORDERABLES [facility] * Rapid Qual Drug Screen, Urine ([facility]) (06/29/2012 2:43 PM EST) U NERISSA Screen See Note CERNER MILLENNIUM Comment: Urine drug of abuse results: ?Amphetamines Negative ?Methamphetamines Negative ?Barbiturates Negative ? Benzodiazepines Presumptive Positive ? Cocaine metabolites Negative ? Methadone Negative ? Opiates Negative ?? Marijuana metabolites Negative ?Tricyclics Negative This urine drug testing device screens for: Amphetamines (AMP), Methamphetamines (mAMP), Opiates (OPI), Cocaine metabolites(USHA), Marijuana metabolites (THC), Benzodiazepines (BZO), Barbiturates (BAR), Methadone (MTD)and Tricyclic antidepressants (TCA). The amphetamine screen detects d-amphetamine use, and a separate methamphetamine screen detects d-methamphetamine use. This device does not detect oxycodone use. Be aware that this is only a [...] or dissimilar cross-reacting drugs. Urine specimen (specimen) 06/29/2012 2:43 PM EST 06/29/2012 4:48 PM EST Narrative Resulting Agency Comment Spec In Lab Maribell Kingsley MD URINE ORDERABLES Performing Organization Address City/State/ZIP Co ma Phone Number [facility] documented in this encounter Visit Diagnoses Diagnosis Depression Depressive disorder, not elsewhere classified Suicidal ideation documented in this encounter Care Teams Day Haul Youth Supervisor Relationship Specialty Start Date End Date Liang Deluca MD [address] [place] [address] [place] [address] PCP - General 07/14/10 09/29/15 documented as of this encounter
--- OUTSIDE RECORDS SUMMARY | 2024-04-12 11:21 | XMS_ITS | Encounter Summary ---
Author Organization [facility] [place] [address] Care Team Providers Care Batch Freezer Name Role Phone Liang Deluca MD Primary Care Provider Reason for Visit * Reason Comments Palpitations Encounter Details Date Type Department Care Team (Late st Contact Info) Description 01/18/2012 9:45 AM EDT Office Visit [address] [address] Jose Pugh MD [facility] [place] [address] Palpitations (Primary Dx) Social History Tobacco Use Types Packs/Day Years Used Date Smoking Tobacco: Never Assessed Sex and Gender Information Value Date Recorded Sex Assigned at Not on file Gender Identity Not on file Sexual Orientation Not on file documented as of this encounter Progress Notes * Gabriel Richardson - 01/20/2012 11:32 AM EDT * Jose Pugh - 01/18/2012 12:57 PM EDT Subjective: Patient ID: Aziza Tamez is a 51 y.o. female. HPI ROS Objective: Physical Exam Assessment and Plan: No problem-specific visit notes found for this encounter. Scanned note documented in this encounter Plan of Treatment Not on file documented as of this encounter Visit Diagnoses Diagnosis Palpitations- Primary documented in this encounter Care Teams Batch Freezer Relationship Specialty Start Date End Date Liang Deluca MD [address] [place] [address] [place] [address] PCP - General 07/14/10 09/29/15 documented as of this encounter
--- OUTSIDE RECORDS SUMMARY | 2024-04-12 11:21 | XMS_ITS | Encounter Summary ---
[place] [address] Care Team Providers Care Electric Switch Tester Name Role Phone Mallory Deluca MD Primary Care Provider [phone] Encounter Details Date Type Department Care Team (Latest Contact Info) Description 07/06/2012 Unscheduled Encounter [facility] [place] [address] Antonio Villaseñor MD [facility] [place] [address] MDD (major depressive disorder), recurrent episode, severe (Primary Dx) Social History Tobacco Use [...] Sign Reading Time Taken Comments Blood Pressure 123/65 07/06/2012 8:30 AM EST Pulse 57 07/06/2012 8:30 AM EST Temperature - - Respiratory Rate - - Oxygen Saturation - - Inhaled Oxygen Concentration - - Weight 55.3 kg (122 lb) 07/06/2012 8:30 AM EST Height 167.6 cm (5' 6) 07/06/2012 8:30 AM EST Body Mass Index 19.69 07/06/2012 8:30 AM EST documented in this encounter Patient Instructions * Patient Instructions* Ava Gonzalez RN - 07/06/2012 3:07 PM EST Please call Ava Gonzalez RN, [phone] if you have any question regarding [facility]. [...] of any psychiatric symptoms For Emergency Services: [phone] Emergency contacts for worsened symptoms or safety concerns Go to your nearest emergency room, or call 911 Call the [facility] crises line at [phone] . Helpful websites for additional information: National [employer] of Mental Health (NIMH) http://www.nimh.nih.gov/index.shtml [employer] http://psych.org/MainMenu/Newsroom/LetsTalkFactsBrochuresFactSheets.aspx National [employer] Mental Illness http://www.jonathon.org/ documented in this encounter Progress Notes * Ava Gonzalez RN - 07/06/2012 4:38 PM EST [facility] Multidisciplinary Treatment Plan 1.0 Mood disturbance 51 year old woman referred to [facility] by the inpatient team after a week long inpt treatment for depression and anxiety with SI. She reports improvement on the inpatient unit and is now no lo eldon suicdal and she rates her depression a 2- 3/10 and anxiety a 6/10. She reports her symptoms have been improving, but still has some some difficulty concentrating and sleep disturbances. She reports feeling hopeful, will continue with an established therapist NAVIGATING OFFICER GOALS Patient will report having improved focus into the present moment. Patient will report having improved ability to safely manage/her stress and symptoms. Patient will develop a plan to continue to use skills and tools learned in [facility] following dischargeTARGET DATE: 07-12 DATES/STATUS*: SHORT TERM GOALS Patient will agree to remain safe and to continue to seek help to remain safe Patient will learn to use the mindful breathing tool during the first visit. Patient will learn the assertive communication tool. Patient will identify current stress cycle. Patient will work to clarify current relationship boundaries. Patient work to identify what can be controlled. Patient will identify and begin to challenge cognitive distortions. Additional individual goals as identified on admission. TARGET DATE: 07-06 DATES/STATUS*: TREATMENT MODALITIES Asses patient symptoms, use of tools and progress toward goals, each visit (RN) Asses patient progress, use of tools and readiness for discharge, on admission, prior to discharge (MD) Physical exam on admission (MD) Psychosocial evaluation on admission (CASING TRIMMER) Assessment of patient's daily progress towards treatment goals ([facility]/SUBSCRIPTION CREW LEADER) DATE/STATUS* 07-06 and daily until discharge 07-06, 07-12 and PRN Done as inpatient 07-06 and daily until discharge PROBLEM NUMBER PROBLEM NAME DISCHARGE BARRIER* DATE ESTAB. & STATUS DATE CHANGED & NEW STATUS 1.0 mood disturbance yes 07-06/ active PATIENT'S STRENGTHS: please list 3 or 4 related to treatment and recovery DISCHARGE CRITERIA/PLANNING: Pt plans to attend 5 days of [facility] treatment Follow Up: Pt has read and agrees with this plan of care * Ava Gonzalez RN - 07/06/2012 3:07 PM EST [facility] Daily Progress Nurse Note: Aziza Tamez 1960 [id number] Safety: Patient denises risk Mood/Affect: Hopeful and blunted affect, rates depression a 2-310 Anxiety: Anxious - 6 and Worry Behavior: Calm and pleasant and cooperative Speech: WNL Cognition: Alert and Oriented Appearance: WNL Thought Content: WNL Sleep: doesn't know how long she slept, only that it was not restful thinks it may be related to getting discharged and starting this new program Activity: WNL Energy: WNL Perceptual Disturbance: WNL Eating: WNL Medications: Taking as prescribed * Kya Su MS - 07/06/2012 1:24 PM EST [facility] Daily Progress Note - Group Notes: Aziza Tamez 1960 [id number] Group: Group Therapy - Greater than 45 minutes Topic: Goals Group Attendance: Present Behavior: Expressive Therapeutic Work Observed: Moderate Mood: Anxious Assessment: Patient stated wanting to develop coping skills how to manage her depression and anxiety. Patient said that she struggles with accepting her depression and taking medications regularly tomanage it. Patient identified stressors and increased symptoms starting a year ago with restrictingher eating, drinking more then I should, isolating and struggling at work. She stated loosing harjinder's best friend to suicide two months ago which helped disconnect her from her pati and started the suicidal thoughts and plans. Patient wants to focus on how to stay healthy and manage her symptoms. Progress Towards Goal: Patient show progress as indicated above. Kya Su [facility] Mental Health Therapist [facility] Partial Hospitalization [facility] Daily Progress Note - Group Notes: Aziza Tamez 1960 [id number] Group: Group Therapy - Greater than 45 minutes Topic: Problem-Solving Skills Attendance: Present Behavior: Expressive Therapeutic Work Observed: Moderate Mood: Calm Assessment: Patient reviewed tool and applied it to her needs for pati, laughter and relaxation. Patient described not being able to relax due to anxiety. Patient developed plan that included going back [place] this weekend, reconnecting with her [place] friends and daily visit nature (birds, nature, etc.). Progress Towards Goal: Patient show progress as indicated above. Kya Su [facility] Health Therapist [facility] Partial Hospitalization [facility] Daily Progress Note - Group Notes: Aziza Tamez 1960 [id number] Group: Group Therapy - Greater than 45 minutes Topic: Boundaries Attendance: Present Behavior: Relevant Therapeutic Work Observed: Moderate Mood: Calm Assessment: Patient reviewed her boundaries and recognized that she tends to take care of others professionally and personally which gets in her way of meeting her own needs. Patient described pattern of getting either too close or too distant interpersonally which gets in the way of continuity of support. Progress Towards Goal: Patient show progress as indicated above. Kya Su [facility] Mental Health Therapist [facility] Partial Hospitalization [facility] Daily Progress Note - Group Notes: Aziza Tamez 1960 [id number] Group: Group Therapy - Greater than 45 minutes Topic: Relapse Prevention Group Attendance: Present Behavior: Relevant Therapeutic Work Observed: Moderate Mood: Calm Assessment: Patient said that she is feeling less anxious at the end of the day. Patient said that she is truly interested in finding healthy ways to relax. Patient said that she usually drinks alcohol to relax at the end of the day. Patient noted mindful breathing being relaxing at the end of the day. Patient discussed other ways to relax including nature sounds. Patient contracted to stay safe and has plan to visit with friend and get some sleep tonight. Progress Towards Goal: Patient show progress as indicated above. Kya Su, [facility] Chief Mental Health Therapist Psychiatric Partial Hospitalization Program * Antonio Villaseñor MD - 07/06/2012 12:14 PM EST Psychiatric Partial Hospital Program - Admission Note Chief Complaint: Depression 51 y.o. Female referred by inpatient unit for continued evaluation/treatment. . History of Present Illness: pt adm to inpt unit 06/29/12, had depression and SI, with hx of several yrs of episodic depression, one past suicide attempt. Prior to admission, had several wks of increasing sxs afgter suicide of family friend, pt reported since then feeling like on a [employer]. 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 She rated her depression as 10/10. Note re - inpt hospital course: Aziza Tamez was voluntarily admitted to inpatient psychiatry for safety, stabilization, and medication optimization. Standard admission labs were reviewed andwnl. Aziza Tamez is a 51 y.o. female who presented to [facility] with several recurrent episodesof depression and anxiety with 2 serious plans to commit suicide in the past week in the context ofdeath of family friend and worsening psychosocial stressors. [...] now recognizes she will now need to beon medications for depression even when she is not in a depressive episode. Patient also complainedof difficulty sleeping on and before admission. Tapered [...] was also provided with emergency contact information. Pt reports: at this time depression improved, still a little anxious, had some sleeping difficulty.On Remeron for sleep, she reports had dreams, felt tired this AM. She also ? Anxiety of d/c and starting program here. Pt reports lower dose of Remeron wasn't as helpful. Pt staying with a friend, feels this arrangement is OK. (4) Quality: as above, long hx of depressive episodes, last one w/ severe sxs and SI leading to inpt admission. Severity: Depression 2/10 (10 high). Anxiety 6/10 (10 high) - anxiety varies day to day. Duration: Many years, episodic. Timing: some worsening in morning Context: as above, recent loss of family friend predating inpt admission. Modifying factors: when more depressed, exercising and diet helped. Associated symptoms: sleep - more vivid dreams, now on Remeron; cristhian - good; energy - good; concentration - good. Review of Systems: (210) Constitutional: Pain 0/10 (10 high). Eyes: ENT: Cardiovascular: Respiratory: GI: : Musculoskeletal: Skin: Neurological: Psychiatric: As above, mild depressive sxs remain but much improved, some anxiety waxes/wanes. Endocrine: Hematologic: Allergic:latex, sulfa Family History: + older sister depression, had SI, was inpt. Siblings ? Depression also. Pt grew upin foster care, unsure of other biological family, except aware of substance abuse in family. Social History: Patient lives with friend in area, from [place], plans to return to her place. Alcohol: + glass wine 3 or 4x /wk, when more depressed Etoh intake increased. No hx of heavier use. Drugs: no lifetime hx of other substances Mental Status Exam: (05/05) ?? Appearance and Behavior:casually dressed, cooperative, very pleasant, articulate ?? Speech: soft, normal prosody ?? Language: fluent ?? Mood and Affect: not really depressed now, but moderately anxious, affect midly sad, intermittent smiles ?? Thought Process: associated, goal directed, organized ?? Associations: as above - associated, no disturbance. ?? Thought Content (comment on SI/HI): reviews hx in appropriate detail/breadth. Denies SI/HI. Feels she would be able to talk with staff, get help if feeling worse, having SI. Perception (comment on AVH, delusions, etc.): denies AH/VH, no delusional material expressed. ?? Orientation:A+Ox3. ?? Attention/Concentration: simple att good, alt #/ltr - slow, correct, one error Cognition: ?? Memory: reg 3/3 verb, recall 3/3 w/ inteference ?? Fund of Knowledge: detailed, broad based ?? Insight and Judgment:appears intact re - conditions and treatments. Physical Exam: Pt just d/mihai from inpt unit, had PE there. Vital Signs: Filed Vitals: 07/06/12 0830 BP: 123/65 Pulse: 57 ? Musculoskeletal:gait/stance wnl, steady; no hypokinetic/hyperkinetic movements. General: HEENT: Cardiovascular: Lungs: Abdomen: Extremities: Neurologic: Assessment: Aziza Tamez is a 51 y.o. Female with long hx of recurrent major depression, recent decompensation at time of of family friend. Now s/p inpt admission, pt reports feeling better now, some residual anxiety, sleep better, now in partial program for cont eval and treatment. DSM Multiaxial Diagnosis: [place] I: MDD [place] II: deferred [place] III: none [place] IV: of family friend, hx of poor po intake [place] V: GAF 35 Plan / Orders: 1) Admit patient to [facility] for help with coping. 2) Continued Treatment plan to include group therapies with CBT and mindfulness- based focus, daily therapeutic check-in, arrangement of follow-up, monitoring medications as indicated. 3) rev w/ pt that I am available to meet with pt PRN during partial hosp course, will f/u w/ pt on or before d/c from program. For now cont meds as Rx. Follow-up Appointments: [facility]c: [facility] PROGRAM CERTIFICATION STATEMENT I certify that Aziza Tamez requires Partial Hospitalization and that these services are medically necessary to improve the patient's condition and functional level and in the absence of suchservices inpatient hospitalization would be required. Services are furnished while the individual is under the care of a physician and these services are furnished under an individualized written plan of treatment. documented in this encounter Plan of Treatment Not on file documented as of this encounter Visit Diagnoses Diagnosis MDD (major depressive disorder), recurrent episode, severe- Primary Major depressive disorder, recurrent episode, severe, without mention of psychotic behavior documented in this encounter Care Teams Electric Switch Tester Relationship Specialty Start Date End Date Mallory Deluca MD [address] [place] [address] [place] [address] PCP - General 07/14/10 09/29/15 documented as of this encounter
--- OUTSIDE RECORDS SUMMARY | 2024-04-12 11:21 | XMS_ITS | Encounter Summary ---
Author Organization [facility] Address [facility] [place] [address] Care Team Providers Care Risk Management Specialist Name Role Phone Liang Deluca MD Primary Care Provider [phone] Reason for Visit * Reason Onset Date Comments Prior Authorization 12/19/2012 12/17/12 Admi t Encounter Details Date Type Department Care Team (Late st Contact Info) Description 12/19/2012 [place] [id number] Robert Gabriel MD [facility] [place] [address] Prior Authorization (12/17/12 Admit) Social History Tobacco Use Types Packs/Day Years [...] encounter Miscellaneous Notes * Telephone Encounter - Shira Paiz - 12/19/2012 3:23 PM EDT Per Sejal at [facility] she gave me Auth# [id number] Approved for 4 days of Psyc Inpatient with the next review date of 12/21/12, you can complete the review by calling her phone# [phone] [id number] documented in this encounter Plan of Treatment Not on file documented as of this encounter Visit Diagnoses Not on filedocumented in this encounter Care Teams Risk Management Specialist Relationship Specialty Start Date End Date Liang Deluca MD [address] [place] [address] [place] [address] PCP - General 07/14/10 09/29/15 documented as of this encounter
--- OUTSIDE RECORDS SUMMARY | 2024-04-12 11:21 | XMS_ITS | Encounter Summary ---
Author Organization [facility] [place] [address] Care Team Providers Care Twine Winder Name Role Phone Mallory Deluca MD Primary Care Provider [phone] Encounter Details Date Type Department Care Team (Latest Contact Info) Description 07/12/2012 Unscheduled Encounter [facility] [place] [address] Antonio Villaseñor MD [facility] [place] [address] Recur major depress, severe (Primary Dx) Social [...] Sign Reading Time Taken Comments Blood Pressure 123/67 07/12/2012 10:56 AM EST Pulse 61 07/12/2012 10:56 AM EST Temperature 36.7 ??C (98.1 ??F) 07/12/2012 10:[address] Respiratory Rate 18 07/12/2012 10:56 AM EST Oxygen Saturation - - Inhaled Oxygen Concentration - - Weight 55.3 kg (122 lb) 07/12/2012 10:56 AM EST Height 167.6 cm (5' 6) 07/12/2012 10:56 AM EST Body Mass Index 19.69 07/12/2012 10:56 AM EST documented in this encounter Patient Instructions * Patient Instructions* Veronica Taylor RN - 07/12/2012 12:44 PM EST Please call [phone] if you have any question regarding [facility]. Follow up appointments: Radha DUMONT July 17 1 P.M. Adriano Elkins July 20 [facility] 1 P.M. Special Physician Instructions: Please continue to monitor mood symptoms. Continue to monitor medication effects. Special Instructions: Call if you have questions about your medication, you have trouble taking your medication, you are experiencing side effects of your medication, or you feel unsafe. Please seek help if you experience any of the following: Feelings of wanting to harm or kill yourself Feelings of wanting to harm or kill other people Hearing voices or things that are not there Seeing things that are not there Worsening of mood Worsening of anxiety Worsening of any psychiatric symptoms For Emergency Services: [phone] Emergency contacts for worsened symptoms or safety concerns Go to your nearest emergency room, or call 911 Call the [facility] crises line at [phone] Helpful websites for additional information: National Institutes of Mental Health (NIMH) http://www.nimh.nih.gov [employer] http://www.healthyminds.org/letstalkfacts.cfm National [employer] on Mental Illness www.jonathon.org or www.namivt.org or www.naminh.org for local sites documented in this encounter Progress Notes * Kya Su MS - 07/12/2012 3:22 PM EST [facility] Daily Progress Note - Group Notes: Aziza Tamez 1960 [id number] Group: Group Therapy - Greater than 45 minutes Topic: Goals Group Attendance: Present Behavior: Expressive Therapeutic Work Observed: Moderate Mood: Anxious Assessment: Patient stated noticing how tense her body is during mindful breathing and how the toolhelps her relax her muscles. Patient described talking to her and requesting him to be homewhen she returns. Patient talked about wanting to present herself as strong and as a person that can take care of the things she need to take care of and struggles with asking for what she needs because of viewing it as weakness. Patient described worrying about going home and getting into a pattern of busyness that distracts her away from her feelings, thoughts and needs. Patient worries and tends to catastrophize about returning to work also. Patient is planning to discharge today and prepare emotionally for returning home. Progress Towards Goal: Patient show progress as indicated above. Kya Su [facility] Therapist Psychiatric Partial Hospitalization Program [facility] Daily Progress Note - Group Notes: Aziza Tamez 1960 [id number] Group: Group Therapy - Greater than 45 minutes Topic: Communication Skills Attendance: Present Behavior: Expressive Therapeutic Work Observed: Moderate Mood: Anxious Assessment: Patient reviewed communication skills and recognized in general being able to use assertive style of communication but when it comes to her depression uses a passive style. Patient statedthat her distorted thinking gets in the way of expressing her feelings, thoughts and needs in an assertive manner. Patient also said that she sometimes does not know what she feels, thinks or needs. Progress Towards Goal: Patient show progress as indicated above. Kya Su [facility] Therapist [facility] Hospitalization [facility] Daily Progress Note - Group Notes: Aziza Tamez 1960 [id number] Group: Group Therapy - Greater than 45 minutes Topic: Anxiety-management Skills Attendance: Present Behavior: Expressive Therapeutic Work Observed: Moderate Mood: Anxious Assessment: Patient reviewed tool and practiced applying tool to her worries about mostly work. Patient discussed viewing her worries mostly out of her control but eventually recognizing things shecan control. Patient reviewed what she can and cannot control about her work situation. Patient wasable to recognize that her work situation has increasingly become more stressful and difficult for her to manage and/or tolerate. Patient is recognizing that she can evaluate how she wants to proceedwith her job after new years. Progress Towards Goal: Patient show progress as indicated above. Kya Su [facility] Therapist [facility] Partial Hospitalization Program * Veronica Taylor RN - 07/12/2012 12:39 PM EST [facility] Daily Progress Nurse Note: Aziza Tamez 1960 [id number] Safety: Patient denises risk Mood/Affect: Hopeful and Depressed - 3 Anxiety: Anxious - 6 Behavior: Calm Speech: WNL Cognition: Alert and Oriented Appearance: WNL Thought Content: WNL Sleep: 8 Hours Slept Activity: WNL Energy: WNL Perceptual Disturbance: WNL Eating: WNL Medications: Taking as prescribed * Antonio Villaseñor MD - 07/12/2012 10:56 AM EST Psychiatric Partial Hospital Program - Discharge Note Chief Complaint: Depression History of Present Illness: Attended 5 visits and feels ready for discharge. Program helpful (10 high) Pt adm to [facility] 07/06/12, hx of major depression and SI, s/p inpt hospital course. During that course her zoloft was increased, ativan was tapered, and mirtzapine was started and increased. She reported improvement in depression, had some anxiety and sleep disturbance, and presented to the Partial program for continued evaluation and treatment. Pt reports: things are going well, taking meds as Rx, no SE. Pt reports she feels better strongernow compared with when discharged from inpt unit, although not quite where she feels she is at a baseline. Feels hopeful. Feels alittle anxious due to upcoming holidays, going home. Pt reports benefits gained in this program incl. Coping skills and relaxation skills learned, using these in other settings to help relax and deal with getting more distressed/depressed on outside. () Quality: pt reports presenting difficulties/sxs are improved overall Severity: Depression 3/10 (10 high). Anxiety 5/10 (10 high). Duration: chronic episodic. Timing: Hx of diurnal variation, worse in morning, but overall improved. Context: recent stressors prior to admit - loss of family friend. Modifying factors: exercise and diet Associated symptoms: sleep good 8 hrs using remeron, cristhian good Review of Systems: () Constitutional: Pain 0/10 (10 high). Eyes: ENT: Cardiovascular: Respiratory: GI: : Musculoskeletal: Skin: Neurological: Psychiatric: as above, mild residual depression and anticipatory anxiety Endocrine: Hematologic: Allergic: as above - latex, sulfa Mental Status Exam: () ?? Appearance and Behavior: casually dressed, pleasant, cooperative, friendly ?? Speech:soft, normal prosody ?? Language: fluent ?? Mood and Affect: better, a little depressed and anxious now, affect brighter, some smiling. ?? Thought Process: associated, goal directed, focused without disturbance ?? Associations: ?? Thought Content (comment on SI/HI): denies SI/HI. Perception (comment on AVH, delusions, etc.): denies AH/VH. No delusional material ?? Orientation:07/12/12, A+Ox3 ?? Attention/Concentration: simple att good, alt #/ltr - fast, correct. Cognition: ?? Memory: verb reg 3/3, recall 3/3 w/ interference ?? Fund of Knowledge: ?? Insight and Judgment: good re - present conditions, sxs, need for treatment. Physical Exam: appt coming up w/ Radha DUMONT ?? Vital Signs: There were no vitals filed for this visit. ?? Musculoskeletal - gait wnl, steady, no dyskinetic/hypo or hyperkinetic movements. General: HEENT: Cardiovascular: Lungs: Abdomen: Extremities: Neurologic: Assessment: Aziza Tamez is a 51 y.o. Female with hx of major depression and anxiety, recent increased depression in context of stressor, s/p inpt hosp course and partial hospital, pt reports feeling better, some mild residual sxs, reporting benefit from PPHP. DSM Multiaxial Diagnosis: [place] I: MDD - partial remission [place] II: deferred [place] III: none [place] IV: stressors - of family friend, hx of poor po intake [place] V: 60-70 Plan: Discharge today - appt w/ TIM Hurt: this Tuesday 07/17 1300 - she Rx psychotropic meds per pt - Adrianoosmel Hargrove - therapist 07/20/12 1300 Follow-up Appointments: cc: Patient requests copy of notes go to MALLORY DELUCA MD documented in this encounter Plan of Treatment Not on file documented as of this encounter Visit Diagnoses Diagnosis Major depressive disorder, recurrent episode, severe, without mention of psychotic behavior- Primary documented in this encounter Care Teams Twine Winder Relationship Specialty Start Date End Date Mallory Deluca MD [address] [place] [address] [place] [address] PCP - General 07/14/10 09/29/15 documented as of this encounter
[2024-04-12 15:57] LABS: Vitamin D 25 Total 108.5 ng/mL (30-100)
== END 2024-04-12 11:09 | disposition home or self-care (01) ==
LOC: NCHCN 11:08
PROVIDERS: PCP Nurse Practitioner Family; Visit Provider Nurse Practitioner Family
DX: E55.9 Vitamin D deficiency, unspecified (principal)
CPT/HCPCS: 82306

== ENCOUNTER → 2024-06-21 12:51 | Outpatient (BNVA) | payer MEDICARE, SELFPAY | PROVIDERS: PCP Nurse Practitioner Family; Referring Provider Nurse Practitioner Family; Visit Provider Physical Therapy Assistant | DX: Z12.11 Encounter for screening for malignant neoplasm of colon (principal); Z80.0 Family history of malignant neoplasm of digestive organs ==

== ENCOUNTER 2024-07-06 09:56 | Day surgery (SDC) | payer MEDICARE, SELFPAY ==
--- NOTE | 2024-07-05 20:51 | W.COLOREPORT ---
Date of service: 07/06/24 Time of Service: 13:02 Colonoscopy Report Date of procedure: 07/06/24 Pre-op diagnosis general: CRC screening/sister has CRC Post-op diagnosis procedure note: other (polyps) Surgeon: Telma Vu Anesthesia Type: General:No Airway Estimated blood loss (mL): 1 Complications: None Disposition: same day Prep: Miralax/Dulcolax Retraction Time: 12 Procedure Description: After informed consent was obtained, explaining risks of the procedure, including but not limits to: bleeding, infections, complications of anesthesia, perforations (which may require antibiotics and /or surgery and stay in the hospital), and abdominal pain/cramping. The patient was taken to the procedure room and placed in a left decubitous position. Monitors were applied and a time out was done. The patients name, date of , procedure, allergies to medications and metal in their body was reviewed. The patient was then sedated. Once sedated and comfortable a rectal exam was done. External exam was normal. Internal exam revealed a normal sphincter tone and no palpable masses. The previously lubricated Olympus scope was then introduced (see RN notes for scope number) and retrofelexed. Grade II internal hemorrhoids in all 3 columns were identified. The scope was then advanced to the cecum without difficulty. The colon was very tortuous and made sharp turns. The TI and appendiceal orifice were identified. The scope was then slowly retracted over 12 minutes back into the rectum. Polyps: A flat, .5cm polyp was found at 60cm and in the rectum. This was removed with a cold biting forceps. All of the specimen was retrieved. This will be sent to pathology. There is no bleeding noted from the polypectomy site. Diverticula: none The mucosa is pink and healthy w/ a normal vascular pattern. The scope was removed, and the patient was woken up and taken back to Same day surgery in stable condition. The patient tolerated the procedure well and there were no immediate complications. Follow up: The patient should follow up in 7 years, unless they develop changes in bowel habits or other new gastrointestinal complaints. Thedford Bowel Prep Thedford Bowel Prep Right Colon: 2 Left Colon: 3 Transverse Colon: 2 Total Score: 7
--- NOTE | 2024-07-05 20:52 | W.PM.DSUDISC ---
Date of service: 07/06/24 Time of Service: 13:06 Discharge Plan Disposition Patient Disposition: Home Discharge Details Reason For Visit: colon scope Attending Provider: Telma Vu Primary Care Provider: Madhavi Smith Home Meds and New Rx's Prescriptions: Continued cholecalciferol (vitamin D3) 1 tab PO DAILY levomefolate calcium [L-Methylfolate] 15 mg tablet 15 mg PO DAILY Probiotic 15 billion cell capsule, sprinkle 1 cap PO DAILY Rx Instructions: do not crush/chew/cut; swallow whole OR may open and sprinkle in cold drink/food vitamin B complex Capsule 1 cap PO DAILY Fiber Gummies 2 gram tablet,chewable 2 g PO DAILY buspirone 15 mg tablet 15 mg PO BID Rx Instructions: 1 tab in the am, 2 tabs in during the day prn Viibryd 40 mg tablet 40 mg PO DAILY mirtazapine 15 mg tablet 45 mg PO DAILY Metamucil 3.4 gram/5.4 gram powder 1 tbsp PO DAILY Rx Instructions: mix into at least 8 oz of water or juice before administering hydroxyzine HCl 10 mg tablet 10 mg PO TID PRN olanzapine 5 mg tablet 2.5 mg PO QHS Discontinued bisacodyl [Dulcolax (bisacodyl)] 5 mg tablet,delayed release (DR/EC) 5 mg PO ONCE Qty: 4 0RF Rx Instructions: Take per colonoscopy instructions provided by ordering providers office polyethylene glycol 3350 17 gram/dose powder 17 g PO ONCE Qty: 238 0RF Rx Instructions: Take per colonoscopy instructions provided by ordering providers office Discharge Instructions Additional Instructions: DSU Colonoscopy Post-Op Instructions Instructions for Everyone who is given Anesthesia: For your safety, please do the following for the next twenty-four (24) hours: *Do Not operate a motor vehicle (car, truck, motorcycle, etc.) *Do Not drink alcoholic beverages or use any recreational drugs for the first 24 hours or while taking pain medications. The medications in your body may have a reaction that can be dangerous. *Do Not make any important decisions or sign any important papers. Findings: X 2 very small polyps, otherwise normal Follow up: My office will send you a letter in 2 to 3 weeks time with the results of the pathology. Plan on repeat colonoscopy in 5 years time 1. No lifting over 20 pounds or strenuous activity for the first 24 hours after your procedure. After 24 hours there are no restrictions on your activity but you may feel fatigued for a few days. 2. After you arrive home you may have a light meal and return to your normal diet as you can tolerate it without feeling sick to your stomach. 3. You may have a bloated, gaseous feeling in your belly (abdomen) after a colonoscopy. Passing gas and belching will help. Walking or lying down on your left side with your knees flexed may relieve the discomfort. Call the office at [phone] (Office) or [phone] (Hospital) right away if you notice any of the following: a.Vomiting of blood or ?coffee ground stools?. b.Rectal bleeding 1Tbsp, blood clots or continuous bleeding. c.Severe belly (abdominal) pain. d.A hard distended belly (abdomen) and an inability to pass gas. 4. Please don?t expect to have a normal BM (bowel movement) for 2-3 days after your procedure. 5. If there are questions regarding the findings of your procedure, please contact your doctor 6. If you are unable to contact your doctor with a problem, contact the hospital at [phone]. 7. Continue all your regular medications unless directed otherwise. I understand the above instructions and have no questions. Signature of Patient or Adult Escort Name of Responsible Adult Escort Signature of Nurse Date/Time Stand Alone Forms: Anesthesia Discharge Inst., Joan López (DSU) Activity:: see above Diet:: see above Discharge Orders Discharge Orders: Discharge Order (Routine); Ordered 07/06/24 Ordered By: Telma Vu DS: Diagnosis Discharge Diagnosis (1) IBS (irritable bowel syndrome): (2) Hemorrhoid: (3) Adenomatous colon polyp: Status: Acute Asessment and Plan: The patient is seen and examined after their colonoscopy.? The patient has been able to pass gas.? They are not having abdominal pain.? They have been able to tolerate liquids and a snack.? They do not have any nausea or vomiting.? They are not having any chest pain or shortness of breath.??? They are not having any rectal bleeding. Their vital signs have been stable-see nursing notes. We discussed findings during their colonoscopy, and any biopsies that were done/polyps that were removed. The patient will be sent a letter with any biopsy results, and when to repeat the colonoscopy.-see discharge instructions. Patient was given explicit instructions to follow-up regarding colonoscopy-refer to discharge instructions.? We reviewed resumption of medications. Patient verbalized understanding and discharged in stable and satisfactory condition- See nursing notes.
[2024-07-06 10:28] VITALS: BP 109/72; PULSE 74; RESP 18; TEMP 36.6; O2SAT 99
[2024-07-06] MEDS: Normal Saline Flush 10 ML SYR IV (10:38)
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
[2024-07-06 11:13] VITALS: BMI 16.4
--- NOTE | 2024-07-06 11:40 | BOWEL_PTH ---
PATIENT: Aziza Penny LOC: [facility] U#:[id number] AGE/SX: 63/F ROOM: RE07/06/[address]: Telma Vu : 1960 BED: DIS: 07/06/2024 SPEC #: [id number] RECD: 07/06/24 13:19 STATUS: FABRICE REQ #: [id number] LC: 07/06/24 11:[address]: Telma Vu DEPT: Surgical Specimen RECD BY: Yasmeen Arellano ENTERED: 07/06/24 13:20 SP TYPE: Bowel OTHR DR: Madhavi Smith Tissues: 1 - BIOPSY BOWEL 2 - BIOPSY BOWEL Procedures: GROSS AND MICRO LEVEL 4 Comments: [id number]
[2024-07-06 12:08] VITALS: BP 107/70; PULSE 61; RESP 16; TEMP 36.2; O2SAT 99
--- NOTE | 2024-07-06 12:32 | W.ANESPOSTOP ---
Postoperative Evaluation Date, Time and Location Date Performed: 07/06/24 Time Performed: 12:32 Patient Location: Day Surgery Unit Vital Signs Most Recent Imported Vital Signs: Most Recent Vital Signs Temp Pulse Resp BP Pulse Ox 36.2 C L 61 16 107/70 99 07/06/24 12:08 07/06/24 12:08 07/06/24 12:08 07/06/24 12:08 07/06/24 12:08 Pain Score Most Recent Pain Score: Most Recent Pain Score Pain Level 0 07/06/24 12:08 Assessment Mental Status: Awake (Alert & Oriented to Patient Baseline) Airway and Respiratory Function: Patent airway with normal (patient baseline) respiratory exam Cardiovascular Function: Hemodynamically Stable Hydration Status: Adequately Hydrated Nausea & Vomiting: No Nausea or Vomiting Pain: Pt. Denies Any Pain Peripheral Nerve Block: Patient did not receive a nerve block
[2024-07-06 12:47] VITALS: BP 118/71; PULSE 55; RESP 16; TEMP 36.1; O2SAT 100
== END 2024-07-06 14:13 | disposition home or self-care (01) ==
PROVIDERS: PCP Nurse Practitioner Family; Visit Provider Surgery
PROC: 0DJD8ZZ Inspection of Lower Intestinal Tract, Via Natural or Artificial Opening Endoscopic (ICD-10-PCS; CPT 45378; principal; 2024-07-06 11:00)
DX: Z12.11 Encounter for screening for malignant neoplasm of colon (principal); K64.1 Second degree hemorrhoids; Z80.0 Family history of malignant neoplasm of digestive organs; D12.4 Benign neoplasm of descending colon; K63.89 Other specified diseases of intestine
CPT/HCPCS: 45380; 88305; J2003; J2704; J3010

== ENCOUNTER 2025-04-16 15:25 | Outpatient (REF) | payer MEDICARE, SELFPAY ==
[2025-04-16 16:09] LABS: HCT 40.4 % (36.0-46.0); HGB 13.5 g/dL (11.2-15.7); MCH 32.8 pg (27.0-33.0); MCHC 33.4 % (32.0-36.0); MCV 98 fL (80-95); MPV 11.1 fL (8.0-11.0); Platelet Count 200 10^3/uL (130-400); RBC 4.11 10^6/uL (3.93-5.22); RDW 12.7 % (11.7-14.6); RDW-SD 45.9 fL; WBC 3.80 10^3/uL (4.4-10.8)
[2025-04-16 17:06] LABS: Hemoglobin A1C 5.4 % (<5.7)
[2025-04-16 17:12] LABS: ALT 47 U/L (14-59); AST 35 U/L (15-37); Albumin 3.9 g/dL (3.4-5.0); Alkaline Phosphatase 49 U/L (46-116); Anion Gap 11.2 mmol/L (3-11); BUN 16 mg/dL (7-18); Bilirubin, Total 0.8 mg/dL (0.2-1.0); CO2 27.8 mmol/L (21.0-32.0); Calcium 9.3 mg/dL (8.5-10.1); Chloride 105 mmol/L (98-107); Estimated GFR 81.72 (mL/min/1.73m2); Glucose 96 mg/dL (74-106); Potassium 4.2 mmol/L (3.5-5.1); Sodium 144 mmol/L (136-145); TSH (W/Ref FT4) 2.56 uIU/mL (0.36-3.74); Total Protein 7.2 g/dL (6.4-8.2); Vitamin D 25 Total 66 ng/mL (30-100)
== END 2025-04-16 15:26 | disposition home or self-care (01) ==
LOC: NCHCN 15:25
PROVIDERS: PCP Nurse Practitioner Family; Visit Provider Nurse Practitioner Family
DX: R73.03 Prediabetes (principal); E55.9 Vitamin D deficiency, unspecified; F41.9 Anxiety disorder, unspecified
CPT/HCPCS: 80053; 82306; 85027; 83036; 84443